=== PATIENT | female | born 1970 | race Hispanic/Latino ===

== ENCOUNTER 2018-03-20 11:06 | Emergency (ER) | payer BC ==
[2018-03-20] MEDS ORDERED: NA CHLORIDE 0.9% 1,000 ML ONE (11:29)
[2018-03-20 12:03] LABS: Absolute Lymphocytes (CBC) 2.1 K/uL (0.7-4.9); Absolute Monocytes 0.4 K/uL (0.1-1.3); Absolute Neutrophil 4.1 K/uL (1.8-8.0); Basophils % 0.7 % (0-1.3); Eosinophils % 1.6 % (0-4.4); Hematocrit 38.1 % (36.0-45.0); Lymphocytes % 30.9 % (15.3-44.8); MCH 30.1 pg (27.0-35.0); MCV 91.9 fL (80-100); Monocytes % 5.3 % (3.3-12.3); RBC Red Blood Cell Count 4.15 M/uL (3.86-4.86)
[2018-03-20 12:13] LABS: BUN Blood Urea Nitrogen 9 mg/dL (7-18); Bicarbonate 26 mmol/L (21-32); Glucose Level 92 mg/dL (74-106); Potassium 3.9 mmol/L (3.5-5.1); Sodium Level 141 mmol/L (136-145)
[2018-03-20 12:23] LABS: Urine Blood 3+ (NEG); Urine Glucose NEGATIVE (NEG); Urine Protein 1+ (NEG); Urine Specific Gravity >1.030 (1.005-1.030); Urine pH 5.5 (5.0-7.0)
--- NOTE | 2018-03-20 12:37 | RAD REPORT ---
EXAM DESCRIPTION: US - Transvaginal Study Probe - 03/20/2018 12:08 pm CLINICAL HISTORY: PAIN Pelvic pain. COMPARISON: TRANSVAGINAL STUDY PROBE dated 06/06/2009 FINDINGS: Subserosal fibroid is seen fundal region posteriorly measuring 19 x 18 x 15 mm. The uterus measures 7.1 x 4.8 x 4.4 cm The endometrial stripe measures 16 mm, normal. The left ovary measures 2.4 x 1.3 x 1.4 cm with normal Doppler blood flow. The right ovary was obscur ed by bowel gas. No adnexal masses. No significant pelvic ascites. IMPRESSION: Small subserosal uterine fibroid. Mildly thickened endometrial stripe measuring 16 mm.
--- NOTE | 2018-03-20 14:20 | EDPHYS ---
Physician Documentation [facility] Name: Tessa Vogel Age: 47 yrs Sex: Female : 1970 Arrival Date: 03/20/2018 Time: 11:10 Bed 23 Private MD: Alexandrea Martinez R ED Physician Brandon Adames HPI: 03/20 11:49 This 47 yrs old Female presents to ER via Ambulatory with complaints of john Vaginal Bleeding. 11:49 The patient presents with vaginal bleeding that is moderate, heavy. Onset: The john symptoms/episode began/occurred 1 month(s) ago. Modifying factors: The symptoms are alleviated by nothing, the symptoms are aggravated by nothing. Associated signs and symptoms: Pertinent positives: vaginal bleeding. Severity of symptoms: At their worst the symptoms were mild, moderate, in the emergency department the symptoms are unchanged. 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 - Social history:: Smoking status: Patient/guardian denies using tobacco. - Ebola Screening: : No symptoms or risks identified at this time. - Family history:: not pertinent. ROS: 11:49 Constitutional: Negative for fever, chills, and weight loss, Eyes: Negative for injury, john pain, redness, and discharge, ENT: Negative for injury, pain, and discharge, Neck: Negative for injury, pain, and swelling, Cardiovascular: Negative for chest pain, palpitations, and edema, Respiratory: Negative for shortness of breath, cough, wheezing, and pleuritic chest pain, Abdomen/GI: Negative for abdominal pain, nausea, vomiting, diarrhea, and constipation, Back: Negative for injury and pain, MS/Extremity: Negative for injury and deformity, Skin: Negative for injury, rash, and discoloration, Neuro: Negative for headache, weakness, numbness, tingling, and seizure, Psych: Negative for depression, anxiety, suicide ideation, homicidal ideation, and hallucinations, Allergy/Immunology: Negative for hives, rash, and allergies, Endocrine: Negative for neck swelling, polydipsia, polyuria, polyphagia, and marked weight changes, Hematologic/Lymphatic: Negative for swollen nodes, abnormal bleeding, and unusual bruising. 11:49 : Positive for pelvic pain, vaginal bleeding. Exam: 11:49 Constitutional: This is a well developed, well nourished patient who is awake, alert, john and in no acute distress. Head/Face: Normocephalic, atraumatic. Eyes: Pupils equal round and reactive to light, extra-ocular motions intact. Lids and lashes normal. Conjunctiva and sclera are non-icteric and not injected. Cornea within normal limits. Periorbital areas with no swelling, redness, or edema. ENT: Nares patent. No nasal discharge, no septal abnormalities noted. Tympanic membranes are normal and external auditory canals are clear. Oropharynx with no redness, swelling, or masses, exudates, or evidence of obstruction, uvula midline. Mucous membranes moist. Neck: Trachea midline, no thyromegaly or masses palpated, and no cervical lymphadenopathy. Supple, full range of motion without nuchal rigidity, or vertebral point tenderness. No Meningismus. Chest/axilla: Normal chest wall appearance and motion. Nontender with no deformity. No lesions are appreciated. Cardiovascular: Regular rate and rhythm with a normal S1 and S2. No gallops, murmurs, or rubs. Normal PMI, no JVD. No pulse deficits. Respiratory: Lungs have equal breath sounds bilaterally, clear to auscultation and percussion. No rales, rhonchi or wheezes noted. No increased work of breathing, no retractions or nasal flaring. Abdomen/GI: Soft, non-tender, with normal bowel sounds. No distension or tympany. No guarding or rebound. No evidence of tenderness throughout. Back: No spinal tenderness. No costovertebral tenderness. Full range of motion. Female : Normal external genitalia. Skin: Warm, dry with normal turgor. Normal color with no rashes, no lesions, and no evidence of cellulitis. MS/ Extremity: Pulses equal, no cyanosis. Neurovascular intact. Full, normal range of motion. Neuro: Awake and alert, GCS 15, oriented to person, place, time, and situation. Cranial nerves II-XII grossly intact. Motor strength 5/5 in all extremities. Sensory grossly intact. Cerebellar exam normal. Normal gait. Psych: Awake, alert, with orientation to person, place and time. Behavior, mood, and affect are within normal limits. Vital Signs: 11:18 BP 141 / 82; Pulse 82; Resp 16; Temp 98; Pulse Ox 100% on R/A; Pain 8/10; hb 12:00 BP 141 / 79; Pulse 61; Resp 16; Pulse Ox 100% on R/A; hb 13:00 BP 122 / 69; Pulse 55; Resp 15; Pulse Ox 100% on R/A; hb MDM: 11:17 Patient medically screened. [facility] 11:51 Data reviewed: vital signs, nurses notes, lab test result(s), radiologic studies, [facility] ultrasound. 03/20 11:20 Order name: Basic Metabolic Panel; Complete Time: 14:16 [facility] 03/20 11:20 Order name: CBC with Diff; Complete Time: 14:16 [facility] 03/20 11:20 Order name: Type And Screen; Complete Time: 14:16 [facility] 03/20 11:42 Order name: Urine Dipstick--Ancillary (enter results); Complete Time: 14:16 03/20 11:42 Order name: Urine --Ancillary (enter results); Complete Time: 14:16 03/20 11:20 Order name: Urine Test (obtain specimen); Complete Time: 11:36 [facility] 03/20 11:20 Order name: IV Saline Lock; Complete Time: 11:36 [facility] 03/20 11:20 Order name: Labs collected and sent; Complete Time: 11:36 [facility] 03/20 11:20 Order name: NPO; Complete Time: 11:36 [facility] 03/20 11:20 Order name: Urine Dipstick-Ancillary (obtain specimen); Complete Time: 11:36 [facility] 03/20 11:20 Order name: US Transvaginal Study (Probe); Complete Time: 14:16 [facility] Administered Medications: 11:37 Drug: NS 0.9% 1000 ml Route: IV; Rate: 1 bolus; Site: right femoral; hb Disposition: 03/20/18 14:19 Discharged to Home. Impression: Leiomyoma of uterus, unspecified - vaginal bleeding. - Condition is Stable. - Discharge Instructions: Dysmenorrhea, Uterine Bleeding, Dysfunctional, Dysmenorrhea, [id number]. - Prescriptions for Motrin IB 200 mg Oral Tablet - take 2 tablet by ORAL route every 6 hours As needed as needed with food; 30 tablet. - Medication Reconciliation Form, Thank You Letter, Antibiotic Education, Prescription Opioid Use, Work release form form. - Follow up: Alexandrea Martinez; When: 2 - 3 days; Reason: Recheck today's complaints, Continuance of care, Re-evaluation by your physician. Follow up: Natali Carter; When: 2 - 3 days; Reason: Recheck today's complaints, Continuance of care, Re-evaluation by your physician. - Problem is new. - Symptoms have improved. Signatures: Dispatcher [employer] [facility] Brandon Adames MD MD cha Baxter, Heather RN RN hb Corrections: (The following items were deleted from the chart) 12:00 11:21 ABO/RH TYPING+BB.LAB.BRZ ordered. [facility] 15:08 14:19 03/20/2018 14:19 Discharged to Home. Impression: Leiomyoma of uterus, unspecified hb - vaginal bleeding. Condition is Stable. Discharge Instructions: Dysmenorrhea, Uterine Bleeding, Dysfunctional, Dysmenorrhea, [id number]. Prescriptions for Motrin IB 200 mg Oral Tablet - take 2 tablet by ORAL route every 6 hours As needed as needed with food; 30 tablet. and Forms are Medication Reconciliation Form, Thank You Letter, Antibiotic Education, Prescription Opioid Use. Follow up: Alexandrea Martinez; When: 2 - 3 days; Reason: Recheck today's complaints, Continuance of care, Re-evaluation by your physician. Follow up: Natali Carter; When: 2 - 3 days; Reason: Recheck today's complaints, Continuance of care, Re-evaluation by your physician. Problem is new. Symptoms have improved. john
--- NOTE | 2018-03-20 14:20 | ER ---
Nurse's Notes [facility] Name: Tessa Vogel Age: 47 yrs Sex: Female : 1970 Arrival Date: 03/20/2018 Time: 11:10 Bed 23 Private MD: Alexandrea Martinez R Diagnosis: Leiomyoma of uterus, unspecified-vaginal bleeding Presentation: 03/20 11:16 Presenting complaint: Patient states: Heavy vaginal bleeding and abdominal cramping x 2 hb days. Recently seen for same s/s, told she has uterine fibroids. LMP 02/23. Transition of care: patient was not received from another setting of care. Onset of symptoms was March 19, 2018. Risk Assessment: Do you want to hurt yourself or someone else? Patient reports no desire to harm self or others. Initial Sepsis Screen: Does the patient meet any 2 criteria? No. Patient's initial sepsis screen is negative. Does the patient have a suspected source of infection? No. Patient's initial sepsis screen is negative. Care prior to arrival: None. 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 - Social history:: Smoking status: Patient/guardian denies using tobacco. - Ebola Screening: : No symptoms or risks identified at this time. - Family history:: not pertinent. Screenin:36 Abuse screen: Denies threats or abuse. Denies injuries from another. Nutritional hb screening: No deficits noted. Tuberculosis screening: No symptoms or risk factors identified. Fall Risk None identified. Assessment: 11:20 General: Appears in no apparent distress. Behavior is calm, cooperative. Pain: Pain hb currently is 8 out of 10 on a pain scale. Neuro: Level of Consciousness is awake, alert, obeys commands, Oriented to person, place, time, situation. Cardiovascular: Capillary refill < 3 seconds Patient's skin is warm and dry. Respiratory: Airway is patent Trachea midline Respiratory effort is even, unlabored, Respiratory pattern is regular, symmetrical, Breath sounds are clear bilaterally. GI: No signs and/or symptoms were reported involving the gastrointestinal system. : Urine is clear, blood tinged, Reports pain lower abdomen vaginal bleeding that is bright red, heavy flow. EENT: No signs and/or symptoms were reported regarding the EENT system. Derm: No signs and/or symptoms reported regarding the dermatologic system. Skin is intact, is healthy with good turgor, Skin is pink, warm \T\ dry. Musculoskeletal: No signs and/or symptoms reported regarding the musculoskeletal system. Vital Signs: 11:18 BP 141 / 82; Pulse 82; Resp 16; Temp 98; Pulse Ox 100% on R/A; Pain 8/10; hb 12:00 BP 141 / 79; Pulse 61; Resp 16; Pulse Ox 100% on R/A; hb 13:00 BP 122 / 69; Pulse 55; Resp 15; Pulse Ox 100% on R/A; hb ED Course: 11:10 Patient arrived in ED. sb2 11:10 Alexandrea Martinez MD is Private Physician. sb2 11:15 Avelina Keating, AUSTEN is Primary Nurse. hb 11:17 Brandon Adames MD is Attending Physician. john 11:18 Triage completed. hb 11:18 Arm band placed on right wrist. hb 11:22 Patient has correct armband on for positive identification. Placed in gown. Bed in low hb position. Call light in reach. Side rails up X 1. 11:58 US Transvaginal Study (Probe) In Process Unspecified. EDMS 12:26 Ultrasound completed. Patient tolerated well. Patient moved back from ultrasound. aa4 13:02 Initial lab(s) drawn, by wv, sent to lab. Inserted saline lock: 20 gauge in right ag antecubital area, using aseptic technique. Blood collected. 13:02 Type And Screen Sent. ag 14:17 Alexandrea Martinez MD is Referral Physician. [facility] 14:17 Natali Carter MD is Referral Physician. john Administered Medications: 11:37 Drug: NS 0.9% 1000 ml Route: IV; Rate: 1 bolus; Site: right femoral; hb Outcome: 14:19 Discharge ordered by MD. lopez 15:08 Patient left the ED. hb Signatures: Dispatcher [employer] EDBrandon Cabrales MD MD cha Frazier, Amanda aa4 Anne Diaz Heather, RN RN Mya Bey sb2
== END 2018-03-20 15:08 | disposition home or self-care (01) ==
LOC: ER 11:06
DX: D25.9 Leiomyoma of uterus, unspecified (principal); N93.9 Abnormal uterine and vaginal bleeding, unspecified; Z88.5 Allergy status to narcotic agent; Z88.0 Allergy status to penicillin; Z88.8 Allergy status to other drugs, medicaments and biological substances
CPT/HCPCS: 36415; 76830; 80048; 81003; 81025; 85025; 86850; 86900; 86901; 99284; J7030

== ENCOUNTER 2019-08-04 15:21 | Emergency (ER) | payer BC ==
--- NOTE | 2019-08-04 16:14 | RAD REPORT ---
EXAM DESCRIPTION: CT - Head Brain Wo Cont - 08/04/2019 4:03 pm CLINICAL HISTORY: Hypertension, left arm weakness and numbness COMPARISON: None. TECHNIQUE: Axial 5 mm thick images of the head were obtained without IV contrast. All CT scans are performed using dose optimization technique as appropriate and may include automated exposure control or mA/KV adjustment according to patient size. FINDINGS: No intracranial hemorrhage, mass, edema or shift of mid-line structures. No acute infarcti on changes seen. No abnormal extra-axial fluid collections. Ventricles are normal. Mastoid air cells and visualized portions of the paranasal sinuses are clear. No acute bony findings. IMPRESSION: Negative non-contrast CT head examination.
[2019-08-04 16:30] LABS: Absolute Lymphocytes (CBC) 2.4 K/uL (0.7-4.9); Basophils % 0.8 % (0-1.3); Hematocrit 36.9 % (36.0-45.0); Lymphocytes % 35.1 % (15.3-44.8); MPV 10.3 fL (7.6-11.3); RBC Red Blood Cell Count 4.07 M/uL (3.86-4.86)
[2019-08-04 16:31] LABS: Protime INR 0.97
[2019-08-04 16:48] LABS: ALT/SGPT 30 U/L (12-78); AST/SGOT 20 U/L (15-37); Albumin 4.1 g/dL (3.4-5.0); Alkaline Phosphatase 85 U/L (45-117); BUN Blood Urea Nitrogen 9 mg/dL (7-18); Bicarbonate 25 mmol/L (21-32); Bilirubin Direct < 0.1 mg/dL (0-0.2); Bilirubin Total 0.3 mg/dL (0.2-1.0); Glucose Level 90 mg/dL (74-106); Magnesium 2.4 mg/dL (1.8-2.4); NT PRO-BNP 33 pg/mL (<125); Potassium 3.5 mmol/L (3.5-5.1); Protein, Total 7.7 g/dL (6.4-8.2); Sodium Level 142 mmol/L (136-145); Troponin (Emerg Dept Use Only) < 0.02 ng/mL (0.0-0.045)
--- NOTE | 2019-08-04 17:15 | RAD REPORT ---
EXAM DESCRIPTION: RAD - Chest Single View - 08/04/2019 4:27 pm CLINICAL HISTORY: Chest pain COMPARISON: March 2010 TECHNIQUE: AP portable chest image was obtained 1607 hours . FINDINGS: Lungs are clear. Heart and vasculature are normal. No measurable pleural effusion and no p neumothorax. No acute bony abnormality seen. No acute aortic findings suspected. No suspicious interv al change. IMPRESSION: No acute cardiopulmonary process.
--- NOTE | 2019-08-04 17:47 | ER ---
Nurse's Notes [facility] Name: Tessa Vogel Age: 49 yrs Sex: Female : 1970 Arrival Date: 08/04/2019 Time: 15:25 Bed 6 Private MD: Alexandrea Martinez R Diagnosis: Paresthesia of skin Presentation: 08/04 15:28 Presenting complaint: Patient states: My BP has been running in the 150s over 80s for la1 the last two days and having tingling in my left arm but today the tingling is worse, I am having a LEWIS, and pain in my shoulders as well. Transition of care: patient was not received from another setting of care. Onset of symptoms was August 04, 2019. Risk Assessment: Do you want to hurt yourself or someone else? Patient reports no desire to harm self or others. Initial Sepsis Screen: Does the patient meet any 2 criteria? No. Patient's initial sepsis screen is negative. Does the patient have a suspected source of infection? No. Patient's initial sepsis screen is negative. Care prior to arrival: None. 15:28 Method Of Arrival: Ambulatory la1 15:28 Acuity: NATALIO 3 la1 Historical: - Allergies: 15:29 Codeine; la1 15:29 Dilantin; la1 15:29 PENICILLINS; la1 - PMHx: 15:29 uterine fibroids; la1 - Immunization history:: Adult Immunizations up to date. - Social history:: Smoking status: Patient/guardian denies using tobacco. - Ebola Screening: : No symptoms or risks identified at this time. Screenin:36 Abuse screen: Denies threats or abuse. Denies injuries from another. Nutritional ph screening: No deficits noted. Tuberculosis screening: No symptoms or risk factors identified. Fall Risk None identified. Assessment: 16:02 General: Appears in no apparent distress. Behavior is calm, cooperative. Pain: Pain hb currently is 3 out of 10 on a pain scale. Neuro: Level of Consciousness is awake, alert, obeys commands, Oriented to person, place, time, situation. Cardiovascular: Capillary refill < 3 seconds. Respiratory: Airway is patent Respiratory effort is even, unlabored, Respiratory pattern is regular, symmetrical, Breath sounds are clear bilaterally. GI: No signs and/or symptoms were reported involving the gastrointestinal system. : No signs and/or symptoms were reported regarding the genitourinary system. EENT: No signs and/or symptoms were reported regarding the EENT system. Derm: Skin is pink, warm \T\ dry. Musculoskeletal: Reports left shoulder and arm pain, left arm parethesias. 17:00 Reassessment: Patient appears in no apparent distress at this time. Patient and/or hb family updated on plan of care and expected duration. Pain level reassessed. Patient is alert, oriented x 3, equal unlabored respirations, skin warm/dry/pink. 18:00 Reassessment: Patient appears in no apparent distress at this time. Patient and/or hb family updated on plan of care and expected duration. Pain level reassessed. Patient is alert, oriented x 3, equal unlabored respirations, skin warm/dry/pink. Vital Signs: 15:29 BP 149 / 89; Pulse 71; Resp 16; Temp 97.2; Pulse Ox 100% on R/A; Weight 71.67 kg; la1 Height 5 ft. (152.40 cm); 16:30 BP 125 / 72; Pulse 62; Resp 15; Pulse Ox 100% on R/A; hb 17:21 BP 115 / 65; Pulse 71; Resp 16; Pulse Ox 100% on R/A; hb 15:29 Body Mass Index 30.86 (71.67 kg, 152.40 cm) la1 NIH Stroke Scale Scores: 15:55 NIHSS Score: 0 jr8 ED Course: 15:25 Patient arrived in ED. mr 15:26 Alexandrea Martinez MD is Private Physician. mr 15:29 Triage completed. la1 15:29 Arm band placed on left wrist. la1 15:30 Fantasma Granados PA is PHCP. jr8 15:30 Brandon Adames MD is Attending Physician. jr8 16:17 Lauryn Bryant RN is Primary Nurse. ph 16:20 Inserted saline lock: 20 gauge in right antecubital area, using aseptic technique. hb Blood collected. 16:32 Patient has correct armband on for positive identification. Bed in low position. Call hb light in reach. Side rails up X 1. 17:46 Cesar Newell MD is Referral Physician. jr8 18:01 No provider procedures requiring assistance completed. IV discontinued, intact, hb bleeding controlled, No redness/swelling at site. Pressure dressing applied. Administered Medications: No medications were administered Outcome: 17:46 Discharge ordered by MD. baldwin 18:01 Discharged to home ambulatory. hb 18:01 Condition: stable 18:01 Discharge instructions given to patient, Instructed on discharge instructions, follow up and referral plans. medication usage, Demonstrated understanding of instructions, follow-up care, medications. 18:12 Patient left the ED. hb NIH Stroke Scale - NIH Stroke Score Date: 08/04/2019 Time: 15:55 Total Score = 0 1a. Level of Consciousness (LOC) - 0(Alert) 1b. Level of Consciousness (LOC) (Year \T\ Age) - 0(Both) 1c. LOC Commands (Open \T\ Closes Eyes/Physics Department Chair) - 0(Both) 2. Best Gaze (Lateral Gaze Paresis) - 0(Normal) 3. Visual Field Loss - 0(No visual loss) 4. Facial Palsy - 0(Normal) 5a. Left Arm: Motor (10-second hold) - 0(No drift) 5b. Right Arm: Motor (10-second hold) - 0(No drift) 6a. Left Leg: Motor (5-second hold - always test supine) - 0(No drift) 6b. Right Leg: Motor (5-second hold - always test supine) - 0(No drift) 7. Limb Ataxia (finger/nose \T\ heel/sinha - test with eyes open) - 0(Absent) 8. Sensory Loss (pinprick arms/legs/face) - 0(Normal) 9. Best Language: Aphasia (description/naming/reading) - 0(No aphasia) 10. Dysarthria (speech clarity - read or repeat words) - 0(Normal) 11. Extinction and Inattention (visual/tactile/auditory/spatial/personal) - 0(No abnormality) Initials: nicolasa Signatures: Rinku Ros Fantasma Jacobs PA PA jr8 Attema, Lee, RN RN laLauryn Wills, AUSTEN RN ph Avelina Keating RN RN hb Corrections: (The following items were deleted from the chart) 17:21 17:00 BP 115 / 65; Pulse 71bpm; Resp 16bpm; Pulse Ox 100% RA; hb hb
--- NOTE | 2019-08-04 17:47 | EDPHYS ---
Physician Documentation [facility] Name: Tessa Vogel Age: 49 yrs Sex: Female : 1970 Arrival Date: 08/04/2019 Time: 15:25 Bed 6 Private MD: Alexandrea Martinez R ED Physician Brandon Adames HPI: 08/04 15:53 This 49 yrs old Female presents to ER via Ambulatory with complaints of jr8 Shoulder Pain, Numbness Of Arm, Headache, Vision Problem. 15:53 The patient presents to the emergency department with paresthesias of the left lower jr8 extremity, that is mild, left upper extremity, that is mild. Onset: The symptoms/episode began/occurred acutely, 2 day(s) ago. Context: occurred at home, occurred while the patient was at rest. Associated signs and symptoms: Pertinent positives: headache, blurred vision. Severity of symptoms: At their worst the symptoms were moderate in the emergency department the symptoms are unchanged. Patient's baseline: Neuro: alert and fully oriented, Motor: no deficits, Ambulation: walks without assistance, Speech: normal. Current symptoms: paresthesias of left arm and leg. The patient has not experienced similar symptoms in the past. The patient has not recently seen a physician. 15:55 Chest pain yesterday as well . jr8 Historical: - Allergies: 15:29 Codeine; la1 15:29 Dilantin; la1 15:29 PENICILLINS; la1 - PMHx: 15:29 uterine fibroids; la1 - Immunization history:: Adult Immunizations up to date. - Social history:: Smoking status: Patient/guardian denies using tobacco. - Ebola Screening: : No symptoms or risks identified at this time. ROS: 15:53 Eyes: Negative for injury, pain, redness, and discharge, ENT: Negative for injury, jr8 pain, and discharge, Neck: Negative for injury, pain, and swelling, Respiratory: Negative for shortness of breath, cough, wheezing, and pleuritic chest pain, Abdomen/GI: Negative for abdominal pain, nausea, vomiting, diarrhea, and constipation, Back: Negative for injury and pain, MS/Extremity: Negative for injury and deformity, Skin: Negative for injury, rash, and discoloration. 15:53 Cardiovascular: Positive for chest pain. 15:53 Neuro: Positive for tingling, visual changes. Exam: 15:55 Eyes: Pupils equal round and reactive to light, extra-ocular motions intact. Lids and jr8 lashes normal. Conjunctiva and sclera are non-icteric and not injected. Cornea within normal limits. Periorbital areas with no swelling, redness, or edema. ENT: Nares patent. No nasal discharge, no septal abnormalities noted. Tympanic membranes are normal and external auditory canals are clear. Oropharynx with no redness, swelling, or masses, exudates, or evidence of obstruction, uvula midline. Mucous membranes moist. Neck: Trachea midline, no thyromegaly or masses palpated, and no cervical lymphadenopathy. Supple, full range of motion without nuchal rigidity, or vertebral point tenderness. No Meningismus. Cardiovascular: Regular rate and rhythm with a normal S1 and S2. No gallops, murmurs, or rubs. Normal PMI, no JVD. No pulse deficits. Respiratory: Lungs have equal breath sounds bilaterally, clear to auscultation and percussion. No rales, rhonchi or wheezes noted. No increased work of breathing, no retractions or nasal flaring. Abdomen/GI: Soft, non-tender, with normal bowel sounds. No distension or tympany. No guarding or rebound. No evidence of tenderness throughout. Back: No spinal tenderness. No costovertebral tenderness. Full range of motion. Skin: Warm, dry with normal turgor. Normal color with no rashes, no lesions, and no evidence of cellulitis. MS/ Extremity: Pulses equal, no cyanosis. Neurovascular intact. Full, normal range of motion. 15:55 Neuro: Orientation: to person, place, time \T\ situation. Mentation: is normal, Memory: is normal, immediate memory is intact, recent memory is intact, remote memory is intact, Cranial nerves: CN I not tested, CN II- XII are normal as tested, visual mera are intact. extraocular movements are intact, Facial palsy and sensory deficits are absent. Nystagmus is absent. Speech is clear and appropriate. Tongue strength is normal, Cerebellar function: normal finger to nose testing, heel to sinha testing is normal, Motor: moves all fours, strength is 5/5 in all extremities, Sensation: tingling, that is mild, of the left arm, Gait: not tested. seizure activity, is not displayed by the patient, Abnormal movements: there are no abnormal movements. Vital Signs: 15:29 BP 149 / 89; Pulse 71; Resp 16; Temp 97.2; Pulse Ox 100% on R/A; Weight 71.67 kg; la1 Height 5 ft. (152.40 cm); 16:30 BP 125 / 72; Pulse 62; Resp 15; Pulse Ox 100% on R/A; hb 17:21 BP 115 / 65; Pulse 71; Resp 16; Pulse Ox 100% on R/A; hb 15:29 Body Mass Index 30.86 (71.67 kg, 152.40 cm) la1 NIH Stroke Scale Scores: 15:55 NIHSS Score: 0 jr8 MDM: 15:30 Patient medically screened. 8 17:45 Data reviewed: vital signs, nurses notes, lab test result(s), EKG, radiologic studies, rust CT scan, plain films. Data interpreted: Pulse oximetry: on room air is 100 %. Interpretation: normal. Counseling: I had a detailed discussion with the patient and/or guardian regarding: the historical points, exam findings, and any diagnostic results supporting the discharge/admit diagnosis, lab results, radiology results, the need for outpatient follow up, a neurologist, to return to the emergency department if symptoms worsen or persist or if there are any questions or concerns that arise at home. 08/04 15:44 Order name: Basic Metabolic Panel rust 08/04 15:44 Order name: CBC with Diff rust 08/04 15:44 Order name: LFT's rust 08/04 15:44 Order name: Magnesium rust 08/04 15:44 Order name: NT PRO-BNP rust 08/04 15:44 Order name: PT-INR rust 08/04 15:44 Order name: Troponin (emerg Dept Use Only) rust 08/04 16:30 Order name: CBC with Automated Diff; Complete Time: 16:43 EDMS 08/04 16:31 Order name: Protime (+INR); Complete Time: 16:43 EDMS 08/04 16:49 Order name: Basic Metabolic Panel; Complete Time: 16:52 EDMS 08/04 16:49 Order name: Liver (Hepatic) Function; Complete Time: 16:52 EDMS 08/04 16:49 Order name: Troponin (Emerg Dept Use Only); Complete Time: 16:52 EDMS 08/04 16:49 Order name: NT PRO-BNP; Complete Time: 16:52 EDMS 08/04 16:49 Order name: Magnesium; Complete Time: 16:52 EDMS 08/04 15:44 Order name: XRAY Chest (1 view) rust 08/04 15:44 Order name: EKG; Complete Time: 15:45 rust 08/04 15:44 Order name: Cardiac monitoring; Complete Time: 16:32 rust 08/04 15:44 Order name: EKG - Nurse/Tech; Complete Time: 16:32 rust 08/04 15:44 Order name: IV Saline Lock; Complete Time: 16:32 rust 08/04 15:44 Order name: Labs collected and sent; Complete Time: 16:32 rust 08/04 15:44 Order name: O2 Per Protocol; Complete Time: 16:32 rust 08/04 15:44 Order name: O2 Sat Monitoring; Complete Time: 16:32 rust 08/04 15:44 Order name: CT Head Brain wo Cont 8 08/04 16:41 Order name: CT; Complete Time: 16:43 EDMS 08/04 17:43 Order name: RAD; Complete Time: 17:45 EDMS Administered Medications: No medications were administered Disposition: 08/05 13:33 Co-signature as Attending Physician, Brandon Adames MD I agree with the assessment and john plan of care. Disposition: 08/04/19 17:46 Discharged to Home. Impression: Paresthesia of skin. - Condition is Stable. - Discharge Instructions: Paresthesia. - Medication Reconciliation Form, Thank You Letter, Antibiotic Education, Prescription Opioid Use, Work release form form. - Follow up: Cesar Newell MD; When: 2 - 3 days; Reason: Recheck today's complaints, Continuance of care, Re-evaluation by your physician. - Problem is new. - Symptoms have improved. NIH Stroke Scale - NIH Stroke Score Date: 08/04/2019 Time: 15:55 Total Score = 0 1a. Level of Consciousness (LOC) - 0(Alert) 1b. Level of Consciousness (LOC) (Year \T\ Age) - 0(Both) 1c. LOC Commands (Open \T\ Closes Eyes/Shelf Filler) - 0(Both) 2. Best Gaze (Lateral Gaze Paresis) - 0(Normal) 3. Visual Field Loss - 0(No visual loss) 4. Facial Palsy - 0(Normal) 5a. Left Arm: Motor (10-second hold) - 0(No drift) 5b. Right Arm: Motor (10-second hold) - 0(No drift) 6a. Left Leg: Motor (5-second hold - always test supine) - 0(No drift) 6b. Right Leg: Motor (5-second hold - always test supine) - 0(No drift) 7. Limb Ataxia (finger/nose \T\ heel/sinha - test with eyes open) - 0(Absent) 8. Sensory Loss (pinprick arms/legs/face) - 0(Normal) 9. Best Language: Aphasia (description/naming/reading) - 0(No aphasia) 10. Dysarthria (speech clarity - read or repeat words) - 0(Normal) 11. Extinction and Inattention (visual/tactile/auditory/spatial/personal) - 0(No abnormality) Initials: nicolasa Signatures: Dispatcher [employer] EDMS Brandon Adames MD MD cha Roszak, Josh, PA PA jr8 Joe Tillman RN RN la1 Avelina Keating RN RN hb Corrections: (The following items were deleted from the chart) 08/04 18:12 17:46 08/04/2019 17:46 Discharged to Home. Impression: Paresthesia of skin. hb Condition is Stable. Forms are Medication Reconciliation Form, Thank You Letter, Antibiotic Education, Prescription Opioid Use. Follow up: Cesar Newell; When: 2 - 3 days; Reason: Recheck today's complaints, Continuance of care, Re-evaluation by your physician. Problem is new. Symptoms have improved. jr8
[2019-08-04 19:58] VITALS: TEMP 97.2; O2SAT 100
[2019-08-04 20:02] VITALS: BP 115/65
--- NOTE | 2019-08-05 12:46 | EKG ---
Test Date: 2019-08-04 Test Time: 16:28:10 Car Carder: PH MEASUREMENT RESULTS: Intervals: Rate: 63 WY: 192 QRSD: 76 QT: 434 QTc: 444 [place]: P: 61 WY: 192 QRS: 30 T: -1 INTERPRETIVE STATEMENTS: Normal sinus rhythm Normal ECG No previous ECG available for comparison Electronically Signed On 08-05-19 12:44:34 FISHER EEL SPEAR by Manny Gonzalez
--- OUTSIDE RECORDS SUMMARY | 2019-08-06 06:19 | XMS REPORT | Summary of Care ---
:1970 Author Organization [facility] Address [address] [place] [id number] Care Team Providers Name Role Phone Pcp, Patient Does Not Have A Primary Care Provider Reason for Visit Reason Comments Back Pain right side, x2 days Encounter Details Date Type Department Care Team Description 06/05/2019 Office Visit [facility] Family Kia Templeton FNP Symptoms of urinary tract infection (Primary Dx); Medicine - [address] H/O motion sickness [address] [place] [address] Drive [place], [place] [id number] [place], [place] [phone] Allergies Active Allergy Reactions Severity Noted Date Comments Codeine Nausea and/or Vomiting 04/27/2017 Iodine And Iodide Containing Anaphylaxis 02/25/2018 Products Phenytoin Rash 04/27/2017 Penicillin Rash 04/27/2017 documented as of this encounter (statuses as of 06/06/2019) Medications Medication Sig Dispensed Refills Start Date End Date Status cyanocobalamin 1,000 0 03/29/2017 Active mcg/mL injection Take 1 capsule 30 capsule 9 04/27/2017 Active no.44-iron,car-FA-dha by mouth daily. (PRENATE MINI) 29 mg iron-1 mg -350 mg Cap meclizine Take 1 tablet by 30 tablet 0 06/05/2019 06/19/2019 Active (MEDI-MECLIZINE) 25 mouth 3 (three) mg tabletIndications: times daily as H/O motion sickness needed for Dizziness (motion sickness, going sailing) for up to 14 days. ciprofloxacin HCl Take 1 tablet by 6 tablet 0 06/05/2019 06/08/2019 Active (CIPRO) 250 mg mouth every 12 tabletIndications: (twelve) hours Symptoms of urinary for 3 days. tract infection documented as of this encounter (statuses as of 06/06/2019) Active Problems No known active problemsdocumented as of this encounter (statuses as of 2018) Social History Tobacco Use Types Packs/Day Years Used Date Never Smoker Smokeless Tobacco: Never Used Alcohol Use Drinks/Week oz/Week Comments Yes Rare Sex Assigned at Date Recorded Not on file Job Start Date Occupation Industry Not on file Not on file Not on file Travel History Travel Start Travel End No recent travel history available. documented as of this encounter Last Filed Vital Signs Vital Sign Reading Time Taken Comments Blood Pressure 134/86 06/05/2019 4:03 PM CDT Pulse 60 06/05/2019 4:03 PM CDT Temperature 36.4 C (97.6 F) 06/05/2019 4:03 PM CDT Respiratory Rate - - Oxygen Saturation 98% 06/05/2019 4:03 PM CDT Inhaled Oxygen Concentration - - Weight 68.5 kg (151 lb) 06/05/2019 4:03 PM CDT Height 152.4 cm (5') 06/05/2019 4:03 PM CDT Body Mass Index 29.49 06/05/2019 4:03 PM CDT documented in this encounter Progress Notes Kia Templeton FNP - 06/05/2019 4:20 PM CDT Cc: Chief Complaint Patient presents with Back Pain right side, x2 days Tessa Vogel is a 48 year old female. Patient here with right flank pain, blood in urine, and frequency. She also asks for medication for motion sickness as she is going sailing and gets motion sickness. URINARY TRACT INFECTION Patient presents to clinic today with complaints of flank pain (right) and frequency. Patient deniesdysuria or urgency. This is a new problem. The current episode started today. The problem has been gradually worsening since onset. Her pain is at a severity of 9/10. The pain is severe. Patient describes pain as stabbing. There has been no fever. She describes her urine color as tea colored (cloudy urine, malodorous). Associated symptoms include chills. Pertinent negatives include no fever or nausea. She has tried increased fluids for the symptoms.The treatment provided no relief. Her sexual activity is non- contributory to the current illness. Allergies Tessa is allergic to codeine; contrast [iodine and iodide containing products]; dilantin [phenytoin]; and penicillin. Medications Outpatient Medications Prior to Visit Medication Sig Dispense Refill cyanocobalamin 1,000 mcg/mL injection no.44-iron,car-FA-dha (PRENATE MINI) 29 mg iron-1 mg -350 mg Cap Take 1 capsule by mouth daily. 30 capsule 9 No facility-administered medications prior to visit. Histories Past Medical History: Diagnosis Date Anemia Breast disorder fibroid Genital herpes + blood testing but pt denies breakout Hypertension During Pap smear abnormality of cervix Transfusion history hemorrhaged with ectopic - unsure if transfused Past Surgical History: Procedure Laterality Date BREAST SURGERY fibroid removed BUNIONECTOMY 2013 INCISION AND DRAINAGE OF ABSCESS 1984 "cyst" near tailbone KNEE ARTHROSCOPY 2013 Social History Socioeconomic History Marital status: Single Spouse name: Not on file Number of children: Not on file Years of education: Not on file Highest education level: Not on file Occupational History Not on file Social Needs Financial resource strain: Not on file Food insecurity: Worry: Not on file Inability: Not on file Transportation needs: Medical: Not on file Non-medical: Not on file Tobacco Use Smoking status: Never Smoker Smokeless tobacco: Never Used Substance and Sexual Activity Alcohol use: Yes Comment: Rare Drug use: No Sexual activity: Yes Partners: Male control/protection: Rhythm Lifestyle Physical activity: Days per week: Not on file Minutes per session: Not on file Stress: Not on file Relationships Social connections: Talks on phone: Not on file Gets together: Not on file Attends druze service: Not on file Active member of club or organization: Not on file Attends meetings of clubs or organizations: Not on file Relationship status: Not on file Intimate partner violence: Fear of current or ex partner: Not on file Emotionally abused: Not on file Physically abused: Not on file Forced sexual activity: Not on file Other Topics Concern Not on file Social History Narrative Orthodox preference: Yazidi No exposure to cats Denies domestic violence or abuse Family History Problem Relation Age of Onset Arthritis Mother Arthritis Father Diabetes Father High cholesterol Father Hypertension Father Cancer Brother Skin and esophageal Breast Cancer Maternal Aunt Colon Cancer Paternal Uncle Heart Paternal Uncle Neurological Paternal Uncle CVA Breast Cancer Maternal Grandmother Diabetes Maternal Grandmother Heart Maternal Grandmother Neurological Maternal Grandmother CVA Osteoporosis Maternal Grandmother Heart Paternal Grandmother Mental retardation Other Down Syndrome Diabetes Other Asthma NoFHx defects NoFHx Ovarian Cancer NoFHx Uterine Cancer NoFHx Depression NoFHx Psychiatry NoFHx Genetic NoFHx Review of Systems Constitutional: Positive for chills. Negative for fever. Respiratory: Negative. Negative for apnea, cough, choking, chest tightness, shortness of breath andwheezing. Cardiovascular: Negative. Negative for chest pain, palpitations and leg swelling. Gastrointestinal: Negative. Negative for nausea. Skin: Negative. Neurological: Negative. Endocrine: Endocrine negative Vital Signs BP 134/86 | Pulse 60 | Temp 36.4 C (97.6 F) (Tympanic) | Ht 5' (1.524 m) | Wt 151 lb (68.5 kg) | SpO2 98% | BMI 29.49 kg/m Physical Exam Constitutional: She is oriented to person, place, and time. She appears well- developed and well-nourished. HENT: Head: Normocephalic. Right Ear: External ear normal. Left Ear: External ear normal. Nose: Nose normal. Neck: Normal range of motion. Neck supple. Cardiovascular: Normal rate, regular rhythm, normal heart sounds and intact distal pulses. Exam reveals no gallop and no friction rub. No murmur heard. Pulmonary/Chest: Effort normal and breath sounds normal. No respiratory distress. She has no wheezes. She has no rales. She exhibits no tenderness. Abdominal: Soft. Bowel sounds are normal. She exhibits no distension. There is no tenderness. There is CVA tenderness (right). Neurological: She is alert and oriented to person, place, and time. Skin: Skin is warm and dry. Capillary refill takes less than 2 seconds. No rash noted. No erythema. No pallor. Nursing note and vitals reviewed. Assessment/Plan 1. Urinary symptoms: UA done in clinic shows some blood, thus will give cipro based on that preliminary findings and symptoms. Hydration and proper hygiene encouraged. Further interventions to follow depending on urine culture and other lab results. If symptoms worsen, get worse with high fever, nausea, vomiting, intractable pain on the flank , please go to the ER. 2. H/O motion sickness: Meclizine given due to pending exposure to the trigger. Plan of care, desired health behaviors, goals, and medication discussed with patient. Education resources provided and reviewed with AVS. Patient/guardian/family verbalized understanding & agrees to plan of care. This visit did not involve counseling and coordination that comprised more than 50% of the visit time. If applicable, the [place] [facility] database was accessed to review any controlled substance prescription claims data. The [employer] prescription claims data in [place] was reviewed to assess patient compliance with the medication treatment plan. documented in this encounter Plan of Treatment Name Type Priority Associated Diagnoses Order Schedule URINE CULTURE LAB Routine Symptoms of urinary Ordered: 06/05/2019 tract infection CBC WITH DIFF LAB Routine Symptoms of urinary Ordered: 06/05/2019 tract infection COMP. METABOLIC PANEL LAB Routine Symptoms of urinary Ordered: 06/05/2019 (67998) tract infection CBC WITH DIFFERENTIAL LAB Routine Symptoms of urinary Ordered: 06/05/2019 tract infection Health Maintenance Due Date Last Done Comments DTaP,Tdap,and Td Vaccines (1 - 1990 Tdap) PAP SMEAR 1992 MAMMOGRAM 2011 INFLUENZA VACCINE (#1) 2019 PNEUMOCOCCAL 0-64 YEARS COMBINED Aged Out No longer eligible based on SERIES patient's age to complete this topic documented as of this encounter Procedures Procedure Name Priority Date/Time Associated Diagnosis Comments POCT URINALYSIS Routine 06/05/2019 Symptoms of urinary tract Results for this infection procedure are in the results section. documented in this encounter Results POCT URINALYSIS W SPECIFIC GRAVITY (06/05/2019) POCT U SP GRAV 1.020 1.005 - 1.025 mg/dl POCT PH U 5 5 - 8 mg/dl POCT U LEUK EST neg Negative - Negative POCT U NIT neg Negative - Negative POCT U PROT neg Negative - Negative POCT U GLU neg Negative - Negative POCT U KETONE neg Negative - Negative POCT U UROBILI neg 0.2 - 1 mg/dl POCT U BILI neg Negative - Negative POCT U BLD 250 Negative - Negative POCT U COLOR pale yellow POCT U APPEAR clear Specimen Urine - URINE, CLEAN CATCH documented in this encounter Visit Diagnoses Diagnosis Symptoms of urinary tract infection - Primary H/O motion sickness Personal history of other specified diseases documented in this encounter Insurance Payer Benefit Plan / Subscriber ID Effective Dates Phone Address Type Group [facility] [id number] 2017-Present PPO/POS [employer] 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
--- OUTSIDE RECORDS SUMMARY | 2019-08-06 06:19 | XMS REPORT | Summary of Care ---
:1970 Author Organization [facility] Address [address] [place] [id number] Care Team Providers Name Role Phone Pcp, Patient Does Not Have A Primary Care Provider Reason for Visit Reason Comments Back Pain right side, x2 days Encounter Details Date Type Department Care Team Description 06/05/2019 Office Visit [facility] Family Kia Templeton FNP Symptoms of urinary tract infection (Primary Dx); Medicine - [address] H/O motion sickness [address] [place] [address] Drive [place], [place] [id number] [place], [place] [phone] Allergies Active Allergy Reactions Severity Noted Date Comments Codeine Nausea and/or Vomiting 04/27/2017 Iodine And Iodide Containing Anaphylaxis 02/25/2018 Products Phenytoin Rash 04/27/2017 Penicillin Rash 04/27/2017 documented as of this encounter (statuses as of 06/05/2019) Medications Medication Sig Dispensed Refills Start Date [...] as of this encounter (statuses as of 06/05/2019) Active Problems No known active problemsdocumented as [...] file Gets together: Not on file Attends confucianist service: Not on file Active member of [...] Concern Not on file Social History Narrative Moravian preference: Samaritan No exposure to cats Denies domestic violence [...] of the visit time. If applicable, the [place] [employer] database was accessed to review any controlled substance prescription claims data. The [employer] prescription claims data in [place] was reviewed to assess patient compliance with the medication treatment plan. documented in this encounter Plan of Treatment Name Type Priority Associated Diagnoses Order Schedule URINE CULTURE LAB Routine Symptoms of urinary Ordered: 06/05/2019 tract infection CBC WITH DIFF LAB Routine Symptoms of urinary Ordered: 06/05/2019 tract infection COMP. METABOLIC PANEL LAB Routine Symptoms of urinary Ordered: 06/05/2019 (26525) tract infection CBC WITH DIFFERENTIAL LAB Routine [...] ID Effective Dates Phone Address Type Group [facility] [id number] 2017-Present PPO/POS [employer] EMPLOYEE EMPLOYEE PLAN Jose Alberto ([place] [place] [address] documented as of this encounter
--- OUTSIDE RECORDS SUMMARY | 2019-08-06 06:19 | XMS REPORT | Summary of Care ---
:1970 Author Organization [facility] Address [address] [place] [address] Care Team Providers Name Role Phone Pcp, Patient Does Not Have A Primary Care Provider Reason for Referral Radiology Services (Routine) Status Reason Specialty Diagnoses / Referred By Referred To Procedures Contact Contact Closed Diagnostic Diagnoses Rib pain on right side Jareth, Kia, Radiology Procedures XR RIBS 3 VW RIGHT EMT [address] [address] Reason for Visit Reason Comments Follow-up Flank Pain right side radiates to RUQ rating 9 on scale 1/10 Encounter Details Date Type Department Care Team Description 06/08/2019 Office Visit [facility] Family Kia Templeton, EMT Rib pain on right side (Primary Dx); Medicine - [place] [address] Generalized abdominal pain; [address] [place] [address] [place], [place] [phone] [address] Allergies Active Allergy Reactions Severity Noted Date Comments Codeine Nausea and/or Vomiting 04/27/2017 Iodine And Iodide Containing Anaphylaxis 02/25/2018 Products Phenytoin Rash 04/27/2017 Penicillin Rash 04/27/2017 documented as of this encounter (statuses as of 06/08/2019) Medications Medication Sig Dispensed Refills Start Date [...] as of this encounter (statuses as of 06/08/2019) Active Problems No known active problemsdocumented as [...] Sign Reading Time Taken Comments Blood Pressure 130/78 06/08/2019 9:15 AM CDT Pulse - - Temperature - - Respiratory Rate - - Oxygen Saturation - - Inhaled Oxygen Concentration - - Weight 69.4 kg (153 lb) 06/08/2019 8:37 AM CDT Height - - Body Mass Index 29.88 06/05/2019 4:03 PM CDT documented in this encounter Progress Notes Kia Templeton FNP - 06/08/2019 8:20 AM CDT Cc: Chief Complaint Patient presents with Follow-up Flank Pain right side radiates to RUQ rating 9 on scale 1/10 Tessa Vogel is a 48 year old female. Patient has been seen earlier this week, and multiple times in the past for similar issue. She has abdominal/pelvic pain. Sonogram done 2017 showed right ovarian cysts for which she denies knowing anything about, plus she is currently on her menstrual period reporting abdominal pain/cramp. Earlier this year, she was seen for abdominal pain and CT abdomen/pelvics showed nothing significant except milddiverticulosis with no acute diverticulitis. Through the course of the visit, reviewing these previous encounters with patient, she now said her pain is more on the right rib with no recollection of any injury and no URI symptoms. She also had dizziness with positions change, feels like room is spinning, she is known to have motion sickness/vertigo but only when she is on water which she mentioned on Tuesday. Then, is was that she was going sailing with a Friend and wanted something ahead of time for vertigo/motion sickness/seasickness, thus Meclizine was given to her. Today she states she has not taken the meclizine, and hersymptoms are not acute at this time because they come and go. For this visit, she is more concernedabout the right rib/side pain. She had a UA done on Tuesday because it felt like UTI from the pain on the right side/flank pain. The UA and culture came back normal, but due to other urinary symptoms she reported that day, she was given cipro for 3 days as an empiric therapy prior to the lab/urine analysis resulting. Today, she mentioned she may have kidney stones, and asked if CT could be done, however, because sheappears in no distress, her CBC especially WBC were normal, Urine analysis and culture showed no blood nor trace of infection; she has no fever nor chills, CT will be differed. Allergies Tessa is allergic to codeine; contrast [iodine and iodide containing products]; dilantin [phenytoin]; and penicillin. Medications Outpatient Medications Prior to Visit Medication Sig Dispense Refill ciprofloxacin HCl (CIPRO) 250 mg tablet Take 1 tablet by mouth every 12 ( twelve) hours for 3 days. 6 tablet 0 meclizine (MEDI-MECLIZINE) 25 mg tablet Take 1 tablet by mouth 3 (three) times daily as needed for Dizziness (motion sickness, going sailing) for up to 14 days. 30 tablet 0 cyanocobalamin 1,000 mcg/mL injection no.44-iron,car-FA-dha (PRENATE MINI) [...] file Gets together: Not on file Attends jain service: Not on file Active member of [...] Concern Not on file Social History Narrative Baptist preference: Episcopalian No exposure to cats Denies domestic violence [...] NoFHx Genetic NoFHx Review of Systems Constitutional: Negative. Respiratory: Negative. Negative for apnea, cough, choking, chest tightness, shortness of breath andwheezing. Cardiovascular: Negative. Negative for chest pain, palpitations and leg swelling. Gastrointestinal: Negative. Skin: Negative. Neurological: Negative. Endocrine: Endocrine negative Vital Signs BP 130/78 | Wt 153 lb (69.4 kg) | BMI 29.88 kg/m Physical Exam Constitutional: She is oriented [...] exhibits no distension. There is no tenderness. Neurological: She is alert and oriented to person, place, and time. She displays normal reflexes. Nocranial nerve deficit. She exhibits normal muscle tone. She displays a negative Romberg sign. Coordination and gait normal. Skin: Skin is warm and dry. Capillary refill takes less than 2 seconds. No rash noted. No erythema. No pallor. Nursing note and vitals reviewed. Assessment/Plan 1. Right rib pain: will get an imaging, take NSAID as needed for pain. Avoid any strenuous activities involving the affected region. Further interventions to follow depending on the study result. 2. Abdominal/pelvic pain: Will consider repeat CT for further eval if persistent. RTC if with any new symptoms, problems or concerns; in the mean time , follow up with PHYSICAL THERAPY RESIDENT with regards to the right ovarian cysts which, according to patient was never addressed. 3. Dizziness: Most likely related to vertigo, thus take the meclizine given last visit. To r/o otheretiology, EKG was ordered. Neuro and cardiac exam was unremarkable. Plan of care, desired health behaviors, goals, and medication discussed with patient. Education resources provided and reviewed with AVS. Patient/guardian/family verbalized understanding & agrees to plan of care. This visit did not involve counseling and coordination that comprised more than 50% of the visit time. If applicable, the [facility] database was accessed to review any controlled substance prescription claims data. The [employer] prescription claims data in [employer] was reviewed to assess patient compliance with the medication treatment plan. documented in this encounter Plan of Treatment Name Type Priority Associated Diagnoses Order Schedule EKG-12 LEAD ROUTINE HEART STATION Routine Dizziness Ordered: 06/08/2019 Health Maintenance Due Date Last Done Comments DTaP,Tdap,and Td Vaccines (1 - 1990 Tdap) PAP SMEAR 1992 MAMMOGRAM 2011 INFLUENZA VACCINE (#1) 2019 PNEUMOCOCCAL 0-64 YEARS COMBINED Aged Out No longer eligible based on SERIES patient's age to complete this topic documented as of this encounter Results XR RIBS 3 VW RIGHT (06/08/2019 11:19 AM CDT) Specimen Impressions Performed At No radiographic abnormality PACS/VR/DOSE Narrative Performed At * * * * * * * * ORIGINAL REPORT * * * * * * * * PACS/VR/DOSE EXAM: Right rib series 3 views HISTORY: right rib pain, no apparent injuries, no acute URI. TECHNIQUE:3 images of the right rib cage are obtained. FINDINGS:No displaced fracture is seen involving the rib cage. No bone lesion is noted. Right lung is clear. No pleural effusion or pneumothorax is present. Procedure Note [facility], Radiant Results Inft User - 06/08/2019 11:38 AM CDT * * * * * * * * ORIGINAL REPORT * * * * * * * * EXAM: Right rib series 3 views HISTORY: right rib pain, no apparent injuries, no acute URI. TECHNIQUE:3 images of the right rib cage are obtained. FINDINGS:No displaced fracture is seen involving the rib cage. No bone lesion is noted. Right lung is clear. No pleural effusion or pneumothorax is present. IMPRESSION No radiographic abnormality Performing Organization Address City/State/Zipcode Phone Number PACS/VR/DOSE documented in this encounter Visit Diagnoses Diagnosis Rib pain on right side - Primary Chest pain, unspecified Generalized abdominal pain Abdominal pain, generalized Dizziness Dizziness and giddiness documented in this encounter Insurance Payer Benefit Plan / Subscriber ID Effective Dates Phone Address Type Group [facility] [place] [id number] 2017-Present PPO/POS [employer] [facility] [employer] [employer] EMPLOYEE EMPLOYEE PLAN documented as of this encounter
--- OUTSIDE RECORDS SUMMARY | 2019-08-06 06:19 | XMS REPORT | Summary of Care ---
:1970 Author Organization [facility] Address [address] [place] [address] Care Team Providers Name Role Phone Pcp, Patient Does Not Have A Primary Care Provider Reason for Visit Reason Comments Back Pain right side, x2 days Encounter Details Date Type Department Care Team Description 06/05/2019 Office Visit [facility] Family Kia Templeton FNP Symptoms of urinary tract infection (Primary Dx); Medicine - [address] H/O motion sickness [address] [place] [address] Drive [place], [place] Jjw905 [address] [place], [place] [phone] Allergies Active Allergy Reactions Severity Noted Date [...] file Gets together: Not on file Attends synagogue service: Not on file Active member of [...] Concern Not on file Social History Narrative Sikh preference: Anglican No exposure to cats Denies domestic violence [...] of the visit time. If applicable, the [place] [employer] database was accessed to review any controlled substance prescription claims data. The [employer] prescription claims data in [employer] was reviewed to assess patient compliance with the medication treatment plan. documented in this encounter Plan of Treatment Name Type Priority Associated Diagnoses Order Schedule URINE CULTURE LAB Routine Symptoms of urinary Ordered: 06/05/2019 tract infection CBC WITH DIFF LAB Routine Symptoms of urinary Ordered: 06/05/2019 tract infection COMP. METABOLIC PANEL LAB Routine Symptoms of urinary Ordered: 06/05/2019 (24520) tract infection CBC WITH DIFFERENTIAL LAB Routine [...] ID Effective Dates Phone Address Type Group [facility] [id number] 2017-Present PPO/POS [employer] EMPLOYEE EMPLOYEE PLAN Jose Alberto (Vendor) [place] [address] documented as of this encounter
--- OUTSIDE RECORDS SUMMARY | 2019-08-06 06:19 | XMS REPORT | Summary of Care ---
:[address] [facility] Address [address] [place] [address] Care Team Providers Name Role Phone Pcp, Patient Does Not Have A Primary Care Provider Encounter Details Date Type Department Care Team Description 06/08/2019 Letter (Out) [facility] Family Kia Templeton FNP [facility] [address] [place] [address] [place] [address] [phone] Allergies Active Allergy Reactions Severity Noted Date [...] of this encounter Last Filed Vital Signs Not on filedocumented in this encounter Plan of Treatment Health Maintenance Due Date Last Done Comments DTaP,Tdap,and Td Vaccines (1 - 1990 Tdap) PAP SMEAR 1992 MAMMOGRAM 2011 INFLUENZA VACCINE (#1) 2019 PNEUMOCOCCAL 0-64 YEARS COMBINED Aged Out No longer eligible based on SERIES patient's age to complete this topic documented as of this encounter Results Not on filedocumented in this encounter Insurance Payer Benefit Plan / Subscriber ID Effective Dates Phone Address Type Group [facility] [id number] 2017-Present PPO/POS [facility] EMPLOYEE EMPLOYEE PLAN documented as of this encounter
--- OUTSIDE RECORDS SUMMARY | 2019-08-06 06:19 | XMS REPORT | Summary of Care ---
:1970 Author Organization [facility] Address [address] [place] [address] Care Team Providers Name Role Phone Pcp, Patient Does Not Have A Primary Care Provider Reason for Referral Radiology Services (Routine) Status Reason Specialty Diagnoses / Referred By Referred To Procedures Contact Contact Closed Diagnostic Diagnoses Rib pain on right side Jareth, Kia, Radiology Procedures XR RIBS 3 VW RIGHT TETRYL BOILING TUB OPERATOR [address] [address] Reason for Visit Reason Comments Follow-up Flank Pain right side radiates to RUQ rating 9 on scale 1/10 Encounter Details Date Type Department Care Team Description 06/08/2019 Office Visit [facility] Family Kia Templeton, TETRYL BOILING TUB OPERATOR Rib pain on right side (Primary Dx); Medicine - [place] [address] Generalized abdominal pain; [address] [place] [address] [place] [phone] [address] Allergies Active Allergy Reactions Severity Noted [...] RUQ rating 9 on scale 1/10 Tessa Vgoel is a 48 year old female. Patient [...] Concern Not on file Social History Narrative Taoism preference: Church No exposure to cats Denies domestic violence [...] the mean time , follow up with SECURITY GUARD SUPERVISOR with regards to the right ovarian cysts [...] of the visit time. If applicable, the [facility] database was accessed to review any controlled substance prescription claims data. The [employer] prescription claims data in [employer] was reviewed to assess patient compliance with [...] effusion or pneumothorax is present. Procedure Note [facility] [[email or web address]], Radiant Results Inft User - 06/08/2019 11:38 [...] ID Effective Dates Phone Address Type Group [facility] [employer] [facility] [place] [id number] 2017-Present PPO/POS [employer] [facility] [employer] EMPLOYEE EMPLOYEE PLAN documented as of this encounter
--- OUTSIDE RECORDS SUMMARY | 2019-08-06 06:19 | XMS REPORT ---
:1970 [facility] Address [address] [place] [address] [address] [place] [address] Care Team Providers Name Role Phone Unavailable Unavailable Unavailable Problems This patient has no known problems. Allergies, Adverse Reactions, Alerts This patient has no known allergies or adverse reactions. Medications This patient has no known medications.
--- OUTSIDE RECORDS SUMMARY | 2019-08-06 06:19 | XMS REPORT | Summary of Care ---
:1970 Author Organization [facility] Address [address] [place] [address] Care Team Providers Name Role Phone Pcp, Patient Does Not Have A Primary Care Provider Reason for Visit Reason Comments LAB Encounter Details Date Type Department Care Team Description 06/06/2019 Slubber Tender Visit [facility] Jareth Kia, CHARACTER ACTRESS [address] [place] [address] Symptoms involving urinary system; Professional Office 2, Adc Lab Personal history of problems Building Phlebotomy Lab Professional Office Building [address] [facility] , [address] [place] [address] Allergies Active Allergy Reactions Severity Noted Date [...] Results Not on filedocumented in this encounter Visit Diagnoses Diagnosis Symptoms involving urinary system Other symptoms involving urinary system Personal history of problems documented in this encounter Insurance Payer Benefit Plan / Subscriber ID Effective Dates Phone Address Type Group [facility] - [facility] [id number] 2017-Present PPO/POS [facility] EMPLOYEE EMPLOYEE PLAN documented as of this encounter
--- OUTSIDE RECORDS SUMMARY | 2019-08-06 06:19 | XMS REPORT | Summary of Care ---
:1970 Author Organization [facility] - Health Address [address] [place] [address] Care Team Providers Name Role Phone Pcp, Patient Does Not Have A Primary Care Provider Encounter Details Date Type Department Care Team Description 06/05/2019 Orders Only [facility] Doctor Unassigned, No [address] [facility] [place] [address] [place] [address] Allergies Active Allergy Reactions Severity Noted Date [...] 29 mg iron-1 mg -350 mg Cap documented as of this encounter (statuses as of 06/05/2019) Active Problems Not on filedocumented as of this encounter (statuses as of 06/05/2019) Social History Tobacco Use Types Packs/Day Years [...] filedocumented in this encounter Plan of Treatment Date Type Specialty Care Team Description 06/05/2019 Office Visit Family Medicine Kia Templeton FNP [address] [place] [address] Health Maintenance Due Date Last Done Comments DTaP,Tdap,and Td Vaccines (1 - 1990 Tdap) PAP SMEAR 1992 MAMMOGRAM 2011 INFLUENZA VACCINE (#1) 2019 PNEUMOCOCCAL 0-64 YEARS COMBINED Aged Out No longer eligible based on SERIES patient's age to complete this topic documented as of this encounter Procedures Procedure Name Priority Date/Time Associated Diagnosis Comments ASSIGNMENT OF BENEFITS Routine 06/05/2019 3:36 PM CDT documented in this encounter Results Not on filedocumented in this encounter Insurance Payer Benefit Plan / Subscriber ID Effective Dates Phone Address Type Group [facility] [id number] 2017-Present PPO/POS [facility] EMPLOYEE EMPLOYEE PLAN documented as of this encounter
--- OUTSIDE RECORDS SUMMARY | 2019-08-06 06:20 | XMS REPORT | Summary of Care ---
:1970 Author Organization [facility] Address [address] [place] [address] Care Team Providers Name Role Phone Pcp, Patient Does Not Have A Primary Care Provider Reason for Referral Radiology Services (Routine) Status Reason Specialty Diagnoses / Referred By Referred To Procedures Contact Contact Closed Diagnostic Diagnoses Rib pain on right side Anene, Kia, Radiology Procedures XR RIBS 3 VW RIGHT PREMIUM REPRESENTATIVE [address] [address] Radiology Services (Routine) Status Reason Specialty Diagnoses / Referred By Referred To Procedures Contact Contact Closed Diagnostic Diagnoses Rib pain on right side Anene, Kia, Radiology Procedures XR RIBS 3 VW RIGHT PREMIUM REPRESENTATIVE [address] [address] Reason for Visit Radiology Services (Routine) Status Reason Specialty Diagnoses / Referred By Referred To Procedures Contact Contact Closed Diagnostic Diagnoses Rib pain on right side Anene, Kia, Radiology Procedures XR RIBS 3 VW RIGHT PREMIUM REPRESENTATIVE [address] [address] Encounter Details Date Type Department Care Team Description 06/08/2019 Hospital Encounter [facility] Anene, Kia, PREMIUM REPRESENTATIVE Arrived [facility] [address] [facility] [address] [address] [place], [place] [phone] [address] Allergies Active Allergy Reactions Severity Noted Date Comments Codeine Nausea and/or Vomiting 04/27/2017 Iodine And Iodide Containing Anaphylaxis 02/25/2018 Products Phenytoin Rash 04/27/2017 Penicillin Rash 04/27/2017 documented as of this encounter (statuses as of 06/09/2019) Medications Medication Sig Dispensed Refills Start Date [...] going sailing) for up to 14 days. documented as of this encounter (statuses as of 06/09/2019) Active Problems No known active problemsdocumented as [...] Procedure Name Priority Date/Time Associated Diagnosis Comments XR RIBS 3 VW RIGHT Routine 06/08/2019 11:19 AM Rib pain on right Results for this CDT side procedure are in the results section. documented in this encounter Results XR RIBS 3 VW [...] effusion or pneumothorax is present. Procedure Note [facility], Radiant Results Inft User - 06/08/2019 11:38 [...] Diagnoses Diagnosis Rib pain on right side Chest pain, unspecified documented in this encounter Insurance Payer Benefit Plan / Subscriber ID Effective Dates Phone Address Type Group [facility] - [facility] [id number] 2017-Present PPO/POS [facility] EMPLOYEE EMPLOYEE PLAN documented as of this encounter
--- OUTSIDE RECORDS SUMMARY | 2019-08-06 06:20 | XMS REPORT | Summary of Care ---
:1970 Author Organization [facility] Address [address] [place] [address] Care Team Providers Name Role Phone Pcp, Patient Does Not Have A Primary Care Provider Reason for Visit Reason Comments Results Encounter Details Date Type Department Care Team Description 06/08/2019 Telephone [facility] Kia Templeton FNP Results - [place] [address] [facility] [address] [place] [address] [place] [phone] Allergies Active Allergy Reactions Severity Noted Date Comments Codeine Nausea and/or Vomiting 04/27/2017 Iodine And Iodide Containing Anaphylaxis 02/25/2018 Products Phenytoin Rash 04/27/2017 Penicillin Rash 04/27/2017 documented as of this encounter (statuses as of 06/11/2019) Medications Medication Sig Dispensed Refills Start Date [...] as of this encounter (statuses as of 06/11/2019) Active Problems No known active problemsdocumented as [...] ID Effective Dates Phone Address Type Group [facility] - [facility] [id number] 2017-Present PPO/POS [facility] EMPLOYEE EMPLOYEE PLAN documented as of this encounter
--- OUTSIDE RECORDS SUMMARY | 2019-08-06 06:20 | XMS REPORT | Summary of Care ---
:1970 Author Organization [facility] - Health Address [address] [place] [address] Care Team Providers Name Role Phone Pcp, Patient Does Not Have A Primary Care Provider Encounter Details Date Type Department Care Team Description 06/06/2019 Orders Only [facility] Doctor Unassigned, No [address] [facility] [place] [address] [address] [place] [address] Allergies Active Allergy Reactions Severity Noted Date [...] Procedure Name Priority Date/Time Associated Diagnosis Comments AGREEMENTS AUTHORIZATIONS Routine 06/06/2019 12:01 AM AND IRREVOCABLE CDT ASSIGNMENTS (FORM 2001) documented in this encounter Results Not on filedocumented in this encounter Insurance Payer Benefit Plan / Subscriber ID Effective Dates Phone Address Type Group [facility] - [facility] [id number] 2017-Present PPO/POS [facility] EMPLOYEE EMPLOYEE PLAN documented as of this encounter
--- OUTSIDE RECORDS SUMMARY | 2019-08-06 06:20 | XMS REPORT | Summary of Care ---
:1970 Author Organization [facility] Address [address] [place] [id number] Care Team Providers Name Role Phone Pcp, Patient Does Not Have A Primary Care Provider Reason for Visit (Routine) Status Reason Specialty Diagnoses / Referred By Referred To Procedures Contact Contact Closed IM-INTERNAL Procedures Kia Templeton, [facility], [facility] MEDICINE / Heart EKG-12 LEAD DIVING COACH Heart Station [facility] EKG [address] [address] Encounter Details Date Type Department Care Team Description 06/08/2019 Hospital Encounter Critical access hospital Kia Templeton FNP [address] [address] Arrived Heart Center Station, [facility] Heart [address] [facility] [place] [address] Allergies Active Allergy Reactions Severity [...] Procedure Name Priority Date/Time Associated Diagnosis Comments EKG-12 LEAD Routine 06/08/2019 10:38 AM CDT documented in this encounter Results Not on filedocumented in this encounter Insurance Payer Benefit Plan / Subscriber ID Effective Dates Phone Address Type Group [facility] [id number] 2017-Present PPO/POS [employer] EMPLOYEE PLAN documented as of this encounter
--- OUTSIDE RECORDS SUMMARY | 2019-08-06 06:20 | XMS REPORT | Summary of Care ---
:1970 Author Organization [facility] Address [address] [place] [id number] Care Team Providers Name Role Phone Pcp, Patient Does Not Have A Primary Care Provider Reason for Referral (Routine) Status Reason Specialty Diagnoses / Referred By Referred To Procedures Contact Contact New Request Obstetrics & Diagnoses Cyst of ovary, unspecified laterality Kia Templeton, Gynecology Procedures CONSULT/REFERRAL MED SURG RN CUSTOMER AGENT [address] [address] Reason for Visit Reason Comments Results Encounter Details Date Type Department Care Team Description 06/12/2019 Telephone [facility] Family Medicine Kia Templeton FNP Results - [address] [place] [address] [address] [place] [address] Allergies Active Allergy Reactions Severity Noted Date Comments Codeine Nausea and/or Vomiting 04/27/2017 Iodine And Iodide Containing Anaphylaxis 02/25/2018 Products Phenytoin Rash 04/27/2017 Penicillin Rash 04/27/2017 documented as of this encounter (statuses as of 06/14/2019) Medications Medication Sig Dispensed Refills Start Date [...] as of this encounter (statuses as of 06/14/2019) Active Problems No known active problemsdocumented as [...] filedocumented in this encounter Visit Diagnoses Diagnosis Cyst of ovary, unspecified laterality - Primary documented in this encounter Insurance Payer Benefit Plan / Subscriber ID Effective Dates Phone Address Type Group [facility] [id number] 2017-Present PPO/POS [employer] documented as of this encounter
== END 2019-08-04 18:12 | disposition home or self-care (01) ==
LOC: ER 15:21
DX: R20.2 Paresthesia of skin (principal); Z88.0 Allergy status to penicillin; Z88.5 Allergy status to narcotic agent; Z88.8 Allergy status to other drugs, medicaments and biological substances
CPT/HCPCS: 36415; 70450; 71045; 80048; 80076; 83735; 83880; 84484; 85025; 85610; 93005; 99283

== ENCOUNTER 2019-12-01 15:38 | Emergency (ER) | payer BC ==
--- OUTSIDE RECORDS SUMMARY | 2019-12-01 15:49 | XMS REPORT ---
:1970 Author Organization [facility] Address [address] [place] [address] [address]. [address] [place] [address] Care Team Providers Name Role Phone Unavailable Unavailable Unavailable Problems This patient has no known problems. Allergies, Adverse Reactions, Alerts This patient has no known allergies or adverse reactions. Medications This patient has no known medications.
--- NOTE | 2019-12-01 17:39 | RAD REPORT ---
EXAM DESCRIPTION: RAD - Knee Left 3 View - 12/01/2019 4:59 pm CLINICAL HISTORY: Left knee pain FINDINGS: No fracture or dislocation is seen. Mild medial joint space narrowing
--- NOTE | 2019-12-01 17:43 | RAD REPORT ---
EXAM DESCRIPTION: RAD - Foot Left 3 View - 12/01/2019 5:01 pm CLINICAL HISTORY: Left Foot pain FINDINGS: No fracture or dislocation is seen. Postsurgical changes involve the first metatarsal. Bones are osteoporotic
--- NOTE | 2019-12-01 17:46 | EDPHYS ---
Physician Documentation [facility] Name: Tessa Vogel Age: 49 yrs Sex: Female : 1970 Arrival Date: 12/01/2019 Time: 15:41 Bed 14 Private MD: Alexandrea Martinez R ED Physician Pankaj Franklin HPI: 11/30 17:15 This 49 yrs old Female presents to ER via Ambulatory with complaints of Knee kb Pain. 17:15 The patient presents with pain, that is acute, tenderness. The complaints affect the kb left knee and lateral side of left foot. Context: The problem was sustained at home, resulted from twisting of the extremity, the patient can fully bear weight, the patient is able to ambulate. Onset: The symptoms/episode began/occurred 2 week(s) ago. Modifying factors: The symptoms are alleviated by nothing. the symptoms are aggravated by weight bearing. Associated signs and symptoms: The patient has no apparent associated signs or symptoms. Treatment prior to arrival includes: no previous treatment. Severity of symptoms: At their worst the symptoms were moderate, in the emergency department the symptoms are unchanged. The patient has not experienced similar symptoms in the past. The patient has not recently seen a physician. Pt reports knee pain and lateral foot pain that started 2 weeks ago. Pt believes she twisted it. Historical: - Allergies: 15:54 Codeine; tw2 15:54 PENICILLINS; tw2 15:54 Dilantin; tw2 - Home Meds: 15:54 None [Active]; tw2 - PMHx: 15:54 uterine fibroids; tw2 - PSHx: 15:54 breast cyst removal; Cholecystectomy; Appendectomy; tw2 - Immunization history:: Adult Immunizations. - Social history:: Smoking status: . ROS: 17:13 Constitutional: Negative for fever, chills, and weight loss, Cardiovascular: Negative kb for chest pain, palpitations, and edema, Respiratory: Negative for shortness of breath, cough, wheezing, and pleuritic chest pain, Abdomen/GI: Negative for abdominal pain, nausea, vomiting, diarrhea, and constipation, Back: Negative for injury and pain, Skin: Negative for injury, rash, and discoloration, Neuro: Negative for headache, weakness, numbness, tingling, and seizure. 17:13 MS/extremity: Positive for injury or acute deformity, pain, tenderness, of the lateral side of left foot and left knee. Exam: 17:15 Constitutional: This is a well developed, well nourished patient who is awake, alert, kb and in no acute distress. Head/Face: Normocephalic, atraumatic. Neck: Trachea midline, no thyromegaly or masses palpated, and no cervical lymphadenopathy. Supple, full range of motion without nuchal rigidity, or vertebral point tenderness. No Meningismus. Chest/axilla: Normal chest wall appearance and motion. Nontender with no deformity. No lesions are appreciated. Cardiovascular: Regular rate and rhythm with a normal S1 and S2. No gallops, murmurs, or rubs. Normal PMI, no JVD. No pulse deficits. Respiratory: Lungs have equal breath sounds bilaterally, clear to auscultation and percussion. No rales, rhonchi or wheezes noted. No increased work of breathing, no retractions or nasal flaring. Abdomen/GI: Soft, non-tender, with normal bowel sounds. No distension or tympany. No guarding or rebound. No evidence of tenderness throughout. Skin: Warm, dry with normal turgor. Normal color with no rashes, no lesions, and no evidence of cellulitis. Neuro: Awake and alert, GCS 15, oriented to person, place, time, and situation. Cranial nerves II-XII grossly intact. Motor strength 5/5 in all extremities. Sensory grossly intact. Cerebellar exam normal. Normal gait. 17:15 Musculoskeletal/extremity: Extremities: grossly normal except: noted in the lateral side of left foot and left knee: decreased ROM, pain, tenderness, ROM: limited active range of motion due to pain, in the left knee, Circulation is intact in all extremities. Sensation intact. Weight bearing: able to fully bear weight. Vital Signs: 15:52 BP 142 / 105; Pulse 65; Resp 17; Temp 97.6(TE); Pulse Ox 100% on R/A; Weight 66.68 kg tw2 (R); Height 4 ft. 11 in. (149.86 cm); Pain 8/10; 15:52 Body Mass Index 29.69 (66.68 kg, 149.86 cm) tw2 MDM: 16:05 Patient medically screened. kb 17:12 Data reviewed: vital signs, nurses notes. Data interpreted: Pulse oximetry: on room air kb is 100 %. Interpretation: normal. Counseling: I had a detailed discussion with the patient and/or guardian regarding: the historical points, exam findings, and any diagnostic results supporting the discharge/admit diagnosis, radiology results, the need for outpatient follow up, a orthopedic surgeon, to return to the emergency department if symptoms worsen or persist or if there are any questions or concerns that arise at home. 11/30 16:06 Order name: Knee Left 3 View XRAY; Complete Time: 17:42 kb 11/30 16:08 Order name: Foot Left 3 View XRAY; Complete Time: 17:44 kb 11/30 17:44 Order name: Landon Wrap; Complete Time: 18:15 kb 11/30 17:45 Order name: Crutches; Complete Time: 18:15 kb Administered Medications: No medications were administered Disposition: 18:59 Co-signature as Attending Physician, Pankaj Franklin MD. rn Disposition: 12/01/19 17:45 Discharged to Home. Impression: Pain in left knee. - Condition is Stable. - Discharge Instructions: Knee Pain, [id number]. - Medication Reconciliation Form, Thank You Letter, Antibiotic Education, Prescription Opioid Use form. - Follow up: Emergency Department; When: As needed; Reason: Worsening of condition. Follow up: Private Physician; When: 2 - 3 days; Reason: Recheck today's complaints, Continuance of care, Re-evaluation by your physician. Signatures: Dispatcher [employer] EDMN Kristal Manrique, EVANS-C APPLIED MARINE PHYSICS PROFESSOR-Ana Golden RN RN aj1 Pankaj Franklin MD MD rn Wise, Tara, RN RN tw2 Corrections: (The following items were deleted from the chart) 18:59 17:45 12/01/2019 17:45 Discharged to Home. Impression: Pain in left knee. Condition is aj1 Stable. Forms are Medication Reconciliation Form, Thank You Letter, Antibiotic Education, Prescription Opioid Use. Follow up: Emergency Department; When: As needed; Reason: Worsening of condition. Follow up: Private Physician; When: 2 - 3 days; Reason: Recheck today's complaints, Continuance of care, Re-evaluation by your physician. kb
--- NOTE | 2019-12-01 17:46 | ER ---
Nurse's Notes [facility] Name: Tessa Vogel Age: 49 yrs Sex: Female : 1970 Arrival Date: 12/01/2019 Time: 15:41 Bed 14 Private MD: Alexandrea Martinez R Diagnosis: Pain in left knee Presentation: 11/30 15:52 Chief complaint: Patient states: my LEFT knee is really bothering me, i guess it tw2 started probably 2 weeks ago, i cant remember how or what but i tried putting my knee back in place and every since then i have been having trouble walking and today it is worse, like i cant bending, i feel like there is something from keeping me from bending it. Coronavirus screen: The patient has NOT traveled to a country currently being monitored by the CDC within the last 14 days. Ebola Screen: Patient denies travel to an Ebola-affected area in the 21 days before illness onset. Initial Sepsis Screen: Does the patient meet any 2 criteria? No. Patient's initial sepsis screen is negative. Does the patient have a suspected source of infection? No. Patient's initial sepsis screen is negative. Risk Assessment: Do you want to hurt yourself or someone else? Patient reports no desire to harm self or others. 15:52 Method Of Arrival: Ambulatory tw2 15:52 Acuity: NATALIO 4 tw2 15:55 Chief complaint: Patient states: even down to my LEFT ankle it is swollen, i will be tw2 honest i was drinking and i dont know what happened. Triage Assessment: 15:54 General: Appears in no apparent distress. slender, well groomed, Behavior is calm, tw2 cooperative, appropriate for age. Pain: Complains of pain in lateral aspect of left knee, posterior aspect of left knee, medial aspect of left knee and left knee. Historical: - Allergies: 15:54 Codeine; tw2 15:54 PENICILLINS; tw2 15:54 Dilantin; tw2 - Home Meds: 15:54 None [Active]; tw2 - PMHx: 15:54 uterine fibroids; tw2 - PSHx: 15:54 breast cyst removal; Cholecystectomy; Appendectomy; tw2 - Immunization history:: Adult Immunizations. - Social history:: Smoking status: . Screenin:28 Abuse screen: Denies threats or abuse. Denies injuries from another. Nutritional aj1 screening: No deficits noted. Tuberculosis screening: No symptoms or risk factors identified. 18:58 Fall Risk None identified. aj1 Assessment: 16:28 General: Appears in no apparent distress. comfortable, Behavior is calm, cooperative, aj1 appropriate for age. Pain: Complains of pain in left knee. Neuro: Level of Consciousness is awake, alert, obeys commands, Oriented to person, place, time, situation. Cardiovascular: Patient's skin is warm and dry. Respiratory: Airway is patent Respiratory effort is even, unlabored, Respiratory pattern is regular, symmetrical. GI: No signs and/or symptoms were reported involving the gastrointestinal system. : No signs and/or symptoms were reported regarding the genitourinary system. EENT: No signs and/or symptoms were reported regarding the EENT system. Derm: Skin is pink, warm \T\ dry. normal. Musculoskeletal: Range of motion: limited in left knee. 17:30 Reassessment: Patient appears in no apparent distress at this time. No changes from aj1 previously documented assessment. Patient and/or family updated on plan of care and expected duration. Pain level reassessed. Patient is alert, oriented x 3, equal unlabored respirations, skin warm/dry/pink. 18:30 Reassessment: Patient appears in no apparent distress at this time. No changes from aj1 previously documented assessment. Patient and/or family updated on plan of care and expected duration. Pain level reassessed. Patient is alert, oriented x 3, equal unlabored respirations, skin warm/dry/pink. Vital Signs: 15:52 BP 142 / 105; Pulse 65; Resp 17; Temp 97.6(TE); Pulse Ox 100% on R/A; Weight 66.68 kg tw2 (R); Height 4 ft. 11 in. (149.86 cm); Pain 8/10; 15:52 Body Mass Index 29.69 (66.68 kg, 149.86 cm) tw2 ED Course: 15:41 Patient arrived in ED. ag5 15:42 Alexandrea Martinez MD is Private Physician. ag5 15:54 Triage completed. tw2 15:55 Arm band placed on. tw2 16:05 Kristal Manrique FNP-C is [facility]. kb 16:05 Pankaj Franklin MD is Attending Physician. kb 16:27 Ana Mcclure, RN is Primary Nurse. aj1 16:28 Patient has correct armband on for positive identification. Bed in low position. Call aj1 light in reach. 16:28 No provider procedures requiring assistance completed. aj1 17:00 Knee Left 3 View XRAY In Process Unspecified. EDMS 17:01 Foot Left 3 View XRAY In Process Unspecified. EDCA 18:16 Crutch training done. [facility] 18:58 Patient did not have IV access during this emergency room visit. aj1 Administered Medications: No medications were administered Outcome: 17:45 Discharge ordered by MD. kb 18:58 Discharged to home ambulatory. aj1 18:58 Condition: good 18:58 Discharge instructions given to patient, Instructed on discharge instructions, follow up and referral plans. Demonstrated understanding of instructions, follow-up care. 18:59 Patient left the ED. aj Signatures: Dispatcher [employer] EDCA Kristal Manrique, BRACER-C BRACER-Ckb Ana Mcclure, RN RN [email or web address] Trupti Martinez, AUSTEN RN Amanda Fonseca [facility] Monica Hicks [facility]
[2019-12-01 19:05] VITALS: BP 142/105; TEMP 97.6; O2SAT 100
== END 2019-12-01 18:59 | disposition home or self-care (01) ==
LOC: ER 15:38
DX: M25.562 Pain in left knee (principal); Z88.0 Allergy status to penicillin; Z88.5 Allergy status to narcotic agent; Z88.8 Allergy status to other drugs, medicaments and biological substances
CPT/HCPCS: 99283

== ENCOUNTER 2022-05-14 10:55 | Emergency (ER) | payer BC ==
--- OUTSIDE RECORDS SUMMARY | 2022-05-14 10:58 | XMS REPORT | Continuity of Care Document ---
:1970 Author Organization [facility] t Address [address] [place] [address] [address] [place] [address] Care Team Providers Name Role Phone MISSY MCKEON Primary Care Physician Unavailable DARRYL GARCIA Attending Clinician Unavailable Provider, [facility] Attending Clinician Unavailable ANDIE VELASCO Attending Clinician Unavailable Only, Jose Monk Test Attending Clinician Unavailable Unknown, Attending Attending Clinician Unavailable TREY FERNANDEZ Attending Clinician Unavailable Trey Fernandez MD Attending Clinician Payers Payer Name Policy Type Policy Number Effective Date Expiration Date S ource Problems Condition Condition Condition Status Onset Resolution Last Treating Co mments Source Name Details Category Date Date Treatment Clinician Date Pain Pain Disease Active Univers involving involving 3-14 [place]ical both hands both hands Br anch Neuropathy Neuropathy Disease Active U nivers 3-14 ity of 00:00: [place] 00 Medical Branch Gastroesop Gastroesop Disease Active 2020-09 Overview : Univers hageal hageal 2-03 Formattin ity of reflux reflux 00:00: g of this [place] disease, disease, 00 note Medica l unspecifie unspecifie might be Branch d whether d whether different esophagiti esophagiti from the s present s present original. Added automatic ally from request for surgery [id number] Chronic Chronic Disease Active 2020-09 Univers abdominal abdominal 0-17 ity of pain pain 00:00: [place] 00 Medical Branch Tremor of Tremor of Disease Active 2020-09 Uni vers left hand left hand 0-17 ity of 00:00: [place] [facility] Breast Breast Disease Active Univers cancer cancer 8-25 [place] of screening screening 00:[place] Rectal Rectal Disease Active Univers bleeding bleeding 8-25 ity of 00:00: [place] [facility] Family Family Disease Active Univers history of history of 8-25 it y of cancer cancer 00:00: [place] [facility] Allergies, Adverse Reactions, Alerts Allergy Allergy Status Severity Reaction(s) Onset Inactive Treating Comm ents Source Name Type Date Date Clinician Hydroxyz Propensi Active Rash Univer s ine ty to 10-09 ity of adverse 00:00: [place] reaction Medical s Branch HYDROXYZ DRUG Active Rash Univers INE INGREDI 10-09 ity of 00:00: [place] [facility] Iodine Propensi Active Anaphylaxis Uni vers And ty to 02-25 ity of Iodide adverse 00:00: [place] Containi reaction Medica l ng s Branch Products IODINE Drug Active Anaphylaxis Unive rs AND Class 02-25 ity of IODIDE 00:00: [place] CONTAINI 00 Medical NG Branch PRODUCTS CODEINE DRUG Active N/V 2017- Univers INGREDI 04-27 ity of 00:00: [place] 00 Medical Branch PHENYTOI DRUG Active Rash Univers N INGREDI 04-27 ity of 00:00: [place] 00 Medical Branch PENICILL DRUG Active Rash 2017 Univers IN INGREDI 04-27 ity of 00:00: [place] [facility] Penicill Propensi Active Rash 2017 Univer s in ty to 04-27 ity of adverse 00:00: [place] reaction 00 Medical s Branch Codeine Propensi Active Nausea 2017- Univers ty to and/or 04-27 ity of adverse Vomiting 00:00: [place] reaction Medical s Branch Phenytoi Propensi Active Rash Univer s n ty to 04-27 ity of adverse 00:00: [place] reaction 00 Medical s Branch Social History Social Habit Start Date Stop Date Quantity Comments Source History SDOH University o f Alcohol Frequency [place] M edical Branch History SDOH University o f Alcohol Std [place] Medical Drinks Branch History SDHI University o f Alcohol Binge [place] Medic al Branch Exposure to 2022-03-21 2022-03-31 Not sure [facility] SARS-CoV-2 00:00:00 12:17:00 [facility] (event) Branch Alcohol intake 2022-03-22 2022-03-22 Current drinker Unive rsity of 00:00:00 00:00:00 of alcohol [place] Medical (finding) Branch Tobacco use and 2017-04-27 2017-04-27 Never used Universit y of exposure 00:00:00 00:00:00 [facility] Alcohol Comment 2017-04-27 2017-04-27 Rare Universit y of 00:00:00 00:00:00 [facility] Sex [birth year] Universit y of 00:00:00 00:00:00 [facility] Smoking Status Start Date Stop Date Source Never smoker [facility] Medications Ordered Filled Start Stop Current Ordering Indication Dosage Frequency Signature Comments Components Source Medication Medication Date Date Medication? Clinician (SIG) Name Name pantoprazol Yes [id number] 40mg Take 1 Univers e 40 mg EC 6-27 tablet by ity of tablet 00:00: mouth [place] 00 daily. Medical Branch pantoprazol Yes [id number] 40mg Take 1 Univers e 40 mg EC 6-27 tablet by ity of tablet 00:00: mouth [place] 00 daily. Medical Branch pantoprazol Yes [id number] 40mg Take 1 Univers e 40 mg EC 6-27 tablet by ity of tablet 00:00: mouth [place] 00 daily. Medical Branch pantoprazol Yes [id number] 40mg Take 1 U nivers e 40 mg EC 6-16 tablet by ity of tablet 00:00: mouth [place] 00 daily. Medical Branch pantoprazol Yes [id number] 40mg Take 1 U nivers e 40 mg EC 6-16 tablet by ity of tablet 00:00: mouth [place] 00 daily. Medical Branch pantoprazol Yes [id number] 40mg Take 1 U nivers e 40 mg EC 6-16 tablet by ity of tablet 00:00: mouth [place] 00 daily. Medical Branch scopolamine Yes [id number] 1.5mg Apply 1 Univers transdermal 6-07 Patch to ity of 1 mg over 3 00:00: skin every [place] days patch 00 72 Medical (seventy-t Branch wo) hours. scopolamine 2021-0 Yes [id number] 1.5mg Apply 1 Univers transdermal 6-07 Patch to ity of 1 mg over 3 00:00: skin every [place] days patch 00 72 Medical (seventy-t [place] wo) hours. scopolamine 2021-0 Yes [id number] 1.5mg Apply 1 Univers transdermal 6-07 Patch to ity of 1 mg over 3 00:00: skin every [place] days patch 00 72 Medical (seventy-t [place] wo) hours. clotrimazol 0 Yes [id number] Apply to [facility] e-betametha 6-06 area(s) 2 ity of sone 00:00: (two) [place] (LOTRISONE) 00 times Medical cream daily. Branch clotrimazol 0 Yes [id number] Apply to [facility] e-betametha 6-06 area(s) 2 ity of sone 00:00: (two) [place] (LOTRISONE) 00 times Medical cream daily. Branch clotrimazol 0 Yes [id number] Apply to [facility] e-betametha 6-06 area(s) 2 ity of sone 00:00: (two) [place] (LOTRISONE) 00 times Medical cream daily. Branch methylPREDN 0 Yes [id number] Take by Univers ISolone 5-10 mouth ity of (MEDROL, 00:00: SEE-INSTRU Chao as MIKE,) 4 mg 00 CTIONS. Medica l tablets follow Branch package directions bromphenira Yes [id number] 10mL Take 10 mL Univers mine-pseudo 5-10 by mouth 4 it y of ephedrine-D 00:00: (four) [place] (BROMFED 00 times Medical DM) 2-30-10 daily as Bran ch mg/5 mL needed for syrup Congestion /Allergies or Cold symptoms. albuterol 0 Yes [id number] 2{puff} Inhale 2 Univers 90 5-10 Puffs ity of mcg/actuati 00:00: every 6 [place] on inhaler 00 (six) Medical hours as Branch needed for Wheezing, Shortness of Breath or Chest tightness. azelastine- 0 Yes [id number] 1{spray Use 1 Univers fluticasone 5-10 } [place] in ity of 137-50 00:00: each [place] mcg/spray 00 nostril 2 Medic al nasal spray (two) Branch times daily. promethazin Yes [id number] 5mL Take 5 mL Univers e-dextromet 5-10 by mouth ity of horphan 00:00: every 4 [place] 6.25-15 00 (four) Medical mg/5 mL hours as Branch syrup needed for Cough or Cold symptoms. methylPREDN Yes [id number] Take by Univers ISolone 5-10 mouth ity of (MEDROL, 00:00: SEE-INSTRU [place] as MIKE,) 4 mg 00 CTIONS. Medica l tablets follow Branch package directions bromphenira Yes [id number] 10mL Take 10 mL Univers mine-pseudo 5-10 by mouth 4 it y of ephedrine-D 00:00: (four) [place] (BROMFED 00 times Medical DM) 2-30-10 daily as Bran ch mg/5 mL needed for syrup Congestion /Allergies or Cold symptoms. albuterol Yes [id number] 2{puff} Inhale 2 Univers 90 5-10 Puffs ity of mcg/actuati 00:00: every 6 [place] on inhaler 00 (six) Medical hours as Branch needed for Wheezing, Shortness of Breath or Chest tightness. azelastine- Yes [id number] 1{spray Use 1 Univers fluticasone 5-10 } [place] in ity of 137-50 00:00: each [place] mcg/spray 00 nostril 2 Medic al nasal spray (two) Branch times daily. promethazin Yes [id number] 5mL Take 5 mL Univers e-dextromet 5-10 by mouth ity of horphan 00:00: every 4 [place] 6.25-15 00 (four) Medical mg/5 mL hours as Branch syrup needed for Cough or Cold symptoms. methylPREDN 0 Yes [id number] Take by Univers ISolone 5-10 mouth ity of (MEDROL, 00:00: SEE-INSTRU [place] as MIKE,) 4 mg 00 CTIONS. Medica l tablets follow Branch package directions bromphenira 0 Yes [id number] 10mL Take 10 mL Univers mine-pseudo 5-10 by mouth 4 it y of ephedrine-D 00:00: (four) [place] M (BROMFED 00 times Medical DM) 2-30-10 daily as Bran ch mg/5 mL needed for syrup Congestion /Allergies or Cold symptoms. albuterol 2021-0 Yes [id number] 2{puff} Inhale 2 Univers 90 5-10 Puffs ity of mcg/actuati 00:00: every 6 [place] on inhaler 00 (six) Medical hours as Branch needed for Wheezing, Shortness of Breath or Chest tightness. azelastine- 2021-0 Yes [id number] 1{spray Use 1 Univers fluticasone 5-10 } [place] in ity of 137-50 00:00: each [place] mcg/spray 00 nostril 2 Medic al nasal spray (two) Branch times daily. promethazin 2021-0 Yes [id number] 5mL Take 5 mL Univers e-dextromet 5-10 by mouth ity of horphan 00:00: every 4 [place] 6.25-15 00 (four) Medical mg/5 mL hours as Branch syrup needed for Cough or Cold symptoms. diclofenac 2021-0 Yes [id number] 75mg Take 1 Univers 75 mg EC 5-09 tablet by ity of tablet 00:00: mouth 2 [place] (two) Medical times Branch daily with meals. diclofenac 2021-0 Yes [id number] 75mg Take 1 Univers 75 mg EC 5-09 tablet by ity of tablet 00:00: mouth 2 [place] (two) Medical times Branch daily with meals. diclofenac 2021-0 Yes [id number] 75mg Take 1 Univers 75 mg EC 5-09 tablet by ity of tablet 00:00: mouth 2 [place] 00 (two) Medical times Branch daily with meals. gabapentin 2021-0 Yes 300mg Take 300 Un rory 300 mg 3-14 mg by ity of capsule 00:00: mouth 3 [place] (three) Medical times Branch daily. gabapentin 2022-0 Yes 300mg Take 300 Un rory 300 mg 3-14 mg by ity of capsule 00:00: mouth 3 [place] (three) Medical times Branch daily. gabapentin 2022-0 Yes 300mg Take 300 Un rory 300 mg 3-14 mg by ity of capsule 00:00: mouth 3 [place] (three) Medical times Branch daily. naproxen 2022-0 Yes [id number] 500mg Take 1 Univers 500 mg 2-08 [id number] tablet by ity of tablet 00:00: mouth 2 00 (two) Medical times Branch daily as needed for Pain (scale 4-6). naproxen 0 Yes [id number] 500mg Take 1 Univers 500 mg 2-08 [id number] tablet by ity of tablet 00:00: mouth 2 00 (two) Medical times Branch daily as needed for Pain (scale 4-6). naproxen Yes [id number] 500mg Take 1 Univers 500 mg 2-08 [id number] tablet by ity of tablet 00:00: mouth 2 00 (two) Medical times Branch daily as needed for Pain (scale 4-6). bimatoprost 2020-09 Yes Univer s 0.03 % 1-08 ity of ophthalmic 00:00: [place] solution 00 Medical Branch bimatoprost 2020-09 Yes Univer s 0.03 % 1-08 ity of ophthalmic 00:00: [place] solution Medical Branch bimatoprost 2020-09 Yes Univer s 0.03 % 1-08 ity of ophthalmic 00:00: [place] solution 00 Medical Branch norethindro 2020-09 Yes [id number] 1{tbl} Take 1 Univers ne-e.estrad 1-01 tablet by ity of ioL-iron 00:00: mouth [place] (LOESTRIN 00 daily. Medical FE .02/22) Branch 1.5 mg-30 mcg (21)/75 mg (7) per tablet norethindro 2020-09 Yes [id number] 1{tbl} Take 1 Univers ne-e.estrad 1-01 tablet by ity of ioL-iron 00:00: mouth [place] (LOESTRIN 00 daily. Medical FE 1.02/22) Branch 1.5 mg-30 mcg (21)/75 mg (7) per tablet norethindro 2020-09 Yes [id number] 1{tbl} Take 1 Univers ne-e.estrad 1-01 tablet by ity of ioL-iron 00:00: mouth [place] (LOESTRIN 00 daily. Medical FE 1.02/22) Branch 1.5 mg-30 mcg (21)/75 mg (7) per tablet mupirocin 2 2020-09 Yes [id number] Apply to Univers % ointment 0-12 area(s) 3 ity of 00:00: (three) [place] 00 times Medical daily. Branch mupirocin 2 2020- Yes [id number] Apply to Univers % ointment 0-12 area(s) 3 ity of 00:00: (three) [place] 00 times Medical daily. Branch mupirocin 2 2020- Yes [id number] Apply to Univers % ointment 0-12 area(s) 3 ity of 00:00: (three) [place] 00 times Medical daily. Branch Immunizations Ordered Filled Immunization Date Status Comments [facility] e Immunization Name Name SARS-COV-2 COVID-19 2021-06-24 Completed Unive rsity of PFIZER VACCINE 00:00:00 [facility] Influenza Virus 2021-06-24 Completed Universit y of Vaccine 00:00:00 [facility] SARS-COV-2 COVID-19 2021-06-24 Completed Unive rsity of PFIZER VACCINE 00:00:00 [facility] Influenza Virus 2021-06-24 Completed Universit y of Vaccine 00:00:00 [facility] SARS-COV-2 COVID-19 2021-06-24 Completed Unive rsity of PFIZER VACCINE 00:00:00 [facility] Influenza Virus 2021-06-24 Completed Universit y of Vaccine 00:00:00 [facility] SARS-COV-2 COVID-19 2020-10-08 Completed Unive rsity of PFIZER VACCINE 00:00:00 [facility] SARS-COV-2 COVID-19 2020-10-08 Completed Unive rsity of PFIZER VACCINE 00:00:00 [facility] SARS-COV-2 COVID-19 2020-10-08 Completed Unive rsity of PFIZER VACCINE 00:00:00 [facility] SARS-COV-2 COVID-19 2020-09-17 Completed Unive rsity of PFIZER VACCINE 00:00:00 [facility] SARS-COV-2 COVID-19 2020-09-17 Completed Unive rsity of PFIZER VACCINE 00:00:00 [facility] SARS-COV-2 COVID-19 2020-09-17 Completed Unive rsity of PFIZER VACCINE 00:00:00 [facility] Vital Signs Vital Name Observation Time Observation Value Comments Source Systolic blood 2022-03-22 14:54:00 118 mm[Hg] Univer sity of pressure [facility] Diastolic blood 2022-03-22 14:54:00 76 mm[Hg] Unive rsity of pressure [facility] Heart rate 2022-03-22 14:54:00 57 /min [facility] Respiratory rate 2022-03-22 14:54:00 16 /min Univ ersity of [facility] Body height 2022-03-22 14:54:00 152.4 cm [facility] Body weight 2022-03-22 14:54:00 64.864 kg [facility] BMI 2022-03-22 14:54:00 27.93 kg/m2 [facility] Oxygen saturation in 2022-03-22 14:54:00 99 /min [facility] Arterial blood by [facility] Pulse oximetry Branch Procedures This patient has no known procedures. Encounters Start End Encounter Admission Attending Care Care Encounter Source Date/Time Date/Time Type Type Clinicians Facility Department ID 2022-06-01 2022-06-01 Outpatient R GARCIA, [facility] [id number] Univers 08:30:00 08:30:00 [facility] [id number] [facility]22-[facility]-01 2022-04-01 Letter Provider, [facility] [id number] Univers 00:00:00 00:00:00 (Out) Ang Db [facility] [id number] it y of Urgent Care [place] [id number] [place] YARON?BLEA [id number] Nd ruby [address] MEDICAL OFFICE BUILDING 2022-03-31 2022-03-31 Outpatient R KRISTA, [facility] [id number] Univers 12:15:00 12:34:43 ANDIE ity o f [facility] 2022-03-31 2022-03-31 Laboratory Only, Ang Db Test [facility] [id number] Univers 12:15:00 12:30:00 Only Unknown, Attending HEALTH [id number] ity [facility] [id number] [place] as YARON?BLEA [id number] Nd ruby [facility] [address] MEDICAL OFFICE BUILDING 2022-03-31 2022-03-31 Outpatient R [facility] [id number] Univers 12:15:00 12:15:00 [id number] [facility] 2022-03-30 2022-03-30 [id number] [facility] 16:30:00 16:30:00 TREY [facility] 2022-03-22 2022-03-22 Office [facility] [id number] [facility] 09:15:00 10:13:27 Visit Trey SLATER [id number] i ty of JIM [id number] Bashir BAILEY [id number] Nd ruby [facility] Branch [facility] Results This patient has no known results.
--- NOTE | 2022-05-14 11:55 | RAD REPORT ---
EXAM DESCRIPTION: RAD - Chest Single View - 05/14/2022 11:48 am CLINICAL HISTORY: CHEST PAIN COMPARISON: Chest Single View dated 08/04/2019; CHEST PA AND LAT 2 VIEW dated 04/10/2010 FINDINGS: Lines: None. Lungs: No evidence of edema or pneumonia. Pleural: No significant pleural effusions or pneumothorax. Cardiac: The heart size is within normal limits. Bones: No acute fractures. Other: IMPRESSION: No acute cardiopulmonary disease.
[2022-05-14 12:11] LABS: Hematocrit 39.3 % (36.0-45.0); Lymphocytes % 33.4 % (15.3-44.8); MCV 89.8 fL (80-100); MPV 9.1 fL (7.6-11.3); RBC Red Blood Cell Count 4.38 M/uL (3.86-4.86)
[2022-05-14 12:20] LABS: Protime INR 1.02
[2022-05-14 12:36] LABS: Albumin 4.1 g/dL (3.4-5.0); Bilirubin Direct 0.1 mg/dL (0-0.2); Bilirubin Total 0.5 mg/dL (0.2-1.0); Magnesium 2.3 mg/dL (1.8-2.4); Potassium 3.7 mmol/L (3.5-5.1)
--- NOTE | 2022-05-14 12:49 | RAD REPORT ---
EXAM DESCRIPTION: CT - Head Brain Wo Cont - 05/14/2022 12:37 pm CLINICAL HISTORY: Left arm numbness COMPARISON: 2019 TECHNIQUE: Computed axial tomography of the head was obtained. IV contrast was not requested. All CT scans are performed using dose optimization technique as appropriate and may include automated exposure control or mA/KV adjustment according to patient size. FINDINGS: An intracranial bleed is not seen . The ventricles are normal in caliber. No extra-axial fluid collection is noted. No significant hypodensity within the brain Fluid within the sinuses/ mastoids is not seen. IMPRESSION: No acute intracranial abnormality is seen. If patient's symptoms persist MRI of the bra in would be recommended.
[2022-05-14] MEDS ORDERED: MORPHINE 2 MG/ML SYR ONE (12:54)
[2022-05-14] MEDS ORDERED: ONDANSETRON 4 MG/2 ML VIAL ONE (12:55)
[2022-05-14 13:04] LABS: Urine Blood Negative (Negative); Urine Glucose Negative (Negative); Urine Protein Negative (Negative); Urine Specific Gravity >=1.030 (1.005-1.030)
--- NOTE | 2022-05-14 16:10 | EDPHYS ---
Physician Documentation [facility] Name: Tessa Vogel Age: 51 yrs Sex: Female : 1970 Arrival Date: 05/14/2022 Time: 10:56 Bed 2 Private MD: ED Physician Brandon Adames HPI: 05/14 11:30 This 51 yrs old Female presents to ER via Ambulatory with complaints of Chest cp Pain, Numbness Of Arm - left tingling. 11:30 The patient or guardian reports chest pain that is located primarily in the anterior cp chest wall, left. 11:30 Onset: 2 week(s) ago. cp 11:30 The pain radiates to left neck, left back. Associated signs and symptoms: Pertinent cp positives: left arm tingling, Pertinent negatives: cough, dizziness, lower extremity pain, lower extremity swelling, recent travel, shortness of breath. The chest pain is described as sharp. Duration: The patient or guardian reports multiple episodes, that are intermittent. 11:30 Severity of pain: in the emergency department the pain is unchanged despite home cp interventions. 11:30 Patient admits to increased stress at home and is tearful during interview. 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 - Social history:: Smoking status: Patient/guardian denies using tobacco products. ROS: 11:35 Constitutional: Negative for body aches, chills, fever, poor PO intake. cp 11:35 Cardiovascular: Positive for chest pain, Negative for edema, palpitations. cp Exam: 11:40 Constitutional: The patient appears in no acute distress, alert, awake, cp non-diaphoretic, non-toxic, well developed, well nourished, tearful 11:40 Head/Face: Normocephalic, atraumatic. cp 11:40 Eyes: Periorbital structures: appear normal, Conjunctiva: normal, no exudate, no injection, Sclera: no appreciated abnormality, Lids and lashes: appear normal, bilaterally. 11:40 ENT: External ear(s): are unremarkable, Nose: is normal, Mouth: Lips: moist, Oral mucosa: pink and intact, moist, Posterior pharynx: Airway: no evidence of obstruction, patent. 11:40 Neck: ROM/movement: is normal, is supple, no meningismus, no nuchal rigidity. 11:40 Chest/axilla: Inspection: normal, Palpation: crepitus, is not appreciated, tenderness, that is mild, of the anterior aspect of left upper chest. 11:40 Cardiovascular: Rate: normal, Rhythm: regular, Edema: is not appreciated, JVD: is not appreciated. 11:40 Respiratory: the patient does not display signs of respiratory distress, Respirations: normal, no use of accessory muscles, no retractions, labored breathing, is not present, Breath sounds: are clear throughout, no decreased breath sounds, no stridor, no wheezing. 11:40 Abdomen/GI: Inspection: abdomen appears normal, Palpation: abdomen is soft and non-tender, in all quadrants. 11:40 Back: pain, that is mild, of the left trapezius and left scapular area, ROM is normal, cp vertebral tenderness, is not appreciated. 11:40 Skin: cellulitis, is not appreciated, no rash present. cp 11:40 Neuro: Orientation: to person, place \T\ time. Mentation: is normal, Cerebellar function: is grossly normal, Motor: moves all fours, strength is normal, Sensation: tingling, that is moderate, of the left arm. 12:10 ECG was reviewed by the Attending Physician. cp 15:20 ECG was reviewed by the Attending Physician. cp Vital Signs: 11:02 BP 149 / 90; Pulse 80; Resp 16; Temp 97.1(TE); Pulse Ox 100% on R/A; Weight 64.41 kg bm7 (R); Height 5 ft. 0 in. (152.40 cm); Pain 4/10; 12:45 BP 149 / 85; Pulse 67; Resp 17; Pulse Ox 100% on R/A; em6 13:00 BP 157 / 86; Pulse 65; Resp 17; Pulse Ox 100% on R/A; em6 13:45 BP 126 / 76; Pulse 64; Resp 15; Pulse Ox 98% on R/A; em6 14:45 BP 116 / 73; Pulse 62; Resp 18; Pulse Ox 97% on R/A; em6 15:45 BP 120 / 75; Pulse 63; Resp 19; Pulse Ox 96% on R/A; em6 11:02 Body Mass Index 27.73 (64.41 kg, 152.40 cm) bm7 MDM: 11:16 Patient medically screened. [facility] 16:08 Data reviewed: vital signs, nurses notes, lab test result(s), EKG, radiologic studies, cp plain films. 16:08 Differential diagnosis: acute myocardial infarction, acute pericarditis, anxiety, chest cp wall pain, pleurisy, pneumonia, pneumothorax, pulmonary embolus, stable angina, thoracic aortic disection, unstable angina. Test interpretation: by ED physician or midlevel provider: ECG, plain radiologic studies. 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 Response to treatment: the patient's symptoms have markedly improved after treatment, and as a result, I will discharge patient. Special discussion: Based on the patient's history, exam, and Dx evaluation, there is no indication for emergent intervention or inpatient Tx. It is understood by the patient/guardian that if the Sx's persist or worsen they need to return immediately for re-evaluation. 05/14 11:26 Order name: Basic Metabolic Panel; Complete Time: 12:39 cp 05/14 12:39 Interpretation: Normal except: CL 111; GLUC 112. cp 05/14 11:26 Order name: CBC with Diff; Complete Time: 12:25 cp 05/14 11:26 Order name: D-Dimer; Complete Time: 12:25 cp 05/14 11:26 Order name: LFT's; Complete Time: 12:39 cp 05/14 11:26 Order name: Magnesium; Complete Time: 12:39 cp 05/14 11:26 Order name: NT PRO-BNP; Complete Time: 12:39 cp 05/14 11:26 Order name: PT-INR; Complete Time: 12:25 cp 05/14 11:26 Order name: Troponin HS; Complete Time: 12:39 cp 05/14 12:39 Interpretation: Troponin HS 3.0; Reviewed. 05/14 11:26 Order name: XRAY Chest (1 view); Complete Time: 12:25 cp 05/14 12:26 Order name: CT Head Brain wo Cont; Complete Time: 13:15 cp 05/14 13:15 Interpretation: Report reviewed. 05/14 13:03 Order name: Urine --Ancillary (enter results); Complete Time: 13:15 eb 05/14 13:04 Order name: Urine Dipstick-Ancillary; Complete Time: 13:15 EDMS 05/14 14:16 Order name: Troponin High Sensitivity: repeat 1445; Complete Time: 15:59 cp 05/14 15:59 Interpretation: Reviewed. 05/14 11:26 Order name: EKG; Complete Time: 11:28 cp 05/14 11:26 Order name: Cardiac monitoring; Complete Time: 12:14 cp 05/14 11:26 Order name: EKG - Nurse/Tech; Complete Time: 12:14 cp 05/14 11:26 Order name: IV Saline Lock; Complete Time: 12:15 cp 05/14 11:26 Order name: Labs collected and sent; Complete Time: 12:15 cp 05/14 11:26 Order name: O2 Per Protocol; Complete Time: 12:15 cp 05/14 11:26 Order name: O2 Sat Monitoring; Complete Time: 12:15 cp 05/14 11:26 Order name: Urine Dipstick-Ancillary (obtain specimen); Complete Time: 13:05 cp 05/14 11:26 Order name: Urine Test (obtain specimen); Complete Time: 13:05 cp 05/14 14:16 Order name: EKG - Nurse/Tech: repeat 1445; Complete Time: 15:28 cp EC:10 Rate is 66 beats/min. Rhythm is regular. LA interval is normal. QRS interval is normal. cp QT interval is normal. T waves are Inverted in leads III, aVR. Interpreted by me. Reviewed by me. 15:20 Rate is 60 beats/min. Rhythm is regular. LA interval is normal. QRS interval is normal. cp QT interval is normal. T waves are Inverted in leads III, aVR. Interpreted by me. Reviewed by me. Administered Medications: 12:45 Drug: morphine 2 mg Route: IVP; Infused Over: 4 mins; Site: right antecubital; em6 13:00 Follow up: BP 157 / 86; Pulse 65 bpm; Resp 17 bpm; Pulse Ox 100% RA; Response: No em6 adverse reaction; RASS: Alert and Calm (0) 12:45 Drug: Zofran (Ondansetron) 4 mg Route: IVP; Site: right antecubital; em6 13:00 Follow up: Response: No adverse reaction em6 Disposition Summary: 05/14/22 16:09 Discharge Ordered Location: Home cp Problem: new cp Symptoms: have improved cp Condition: Stable cp Diagnosis - Chest pain, unspecified cp - Paresthesia of skin cp Followup: cp - With: Private Physician - When: 2 - 3 days - Reason: Recheck today's complaints Discharge Instructions: - Discharge Summary Sheet cp - Nonspecific Chest Pain, Adult cp - Paresthesia cp - Aspirin and Your Heart cp Forms: - Medication Reconciliation Form cp - Thank You Letter cp - Antibiotic Education cp - Prescription Opioid Use cp Prescriptions: - Diclofenac Sodium 75 mg Oral Tablet Sustained Release - take 1 tablet by ORAL route 2 times per day; 30 tablet; Refills: 0, Product cp Selection Permitted Signatures: Dispatcher [employer] EDBrandon Cabrales MD MD cha Page, Corey, PA PA cp McCarthy, Brittany, RN RN bm7 Geno Mancia RN RN em6
--- NOTE | 2022-05-14 16:10 | ER ---
Nurse's Notes [facility] Name: Tessa Vogel Age: 51 yrs Sex: Female : 1970 Arrival Date: 05/14/2022 Time: 10:56 Bed 2 Private MD: Diagnosis: Chest pain, unspecified;Paresthesia of skin Presentation: 05/14 11:02 Chief complaint: Patient states: I started having chest pain two weeks ago and my left bm7 arm started tingling. Coronavirus screen: At this time, the client does not indicate any symptoms associated with coronavirus-19. Ebola Screen: No symptoms or risks identified at this time. Initial Sepsis Screen: Does the patient meet any 2 criteria? No. Patient's initial sepsis screen is negative. Does the patient have a suspected source of infection? No. Patient's initial sepsis screen is negative. Risk Assessment: Do you want to hurt yourself or someone else? Patient reports no desire to harm self or others. Onset of symptoms was April 29, 2022. 11:02 Method Of Arrival: Ambulatory [facility] 11:02 Acuity: NATALIO 3 bm7 Triage Assessment: 11:04 General: Appears in no apparent distress. comfortable, Behavior is calm, cooperative, bm7 appropriate for age. Pain: Complains of pain in mid-sternal area Pain radiates to left arm Pain currently is 4 out of 10 on a pain scale. EENT: No deficits noted. No signs and/or symptoms were reported regarding the EENT system. Neuro: No deficits noted. Cardiovascular: Chest pain is described as mild, quality is squeezing, began 2 weeks ago. Respiratory: Denies cough, shortness of breath. GI: No deficits noted. No signs and/or symptoms were reported involving the gastrointestinal system. : No deficits noted. No signs and/or symptoms were reported regarding the genitourinary system. Derm: No deficits noted. No signs and/or symptoms reported regarding the dermatologic system. Musculoskeletal: No deficits noted. No signs and/or symptoms reported regarding the musculoskeletal system. 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 - Social history:: Smoking status: Patient/guardian denies using tobacco products. Screenin:10 Abuse screen: Denies threats or abuse. em6 11:10 Nutritional screening: No deficits noted. Tuberculosis screening: No symptoms or risk em6 factors identified. Fall Risk No fall in past 12 months (0 pts). No secondary diagnosis (0 pts). IV access (20 points). Ambulatory Aid- None/Bed Rest/Nurse Assist (0 pts). Gait- Normal/Bed Rest/Wheelchair (0 pts) Mental Status- Oriented to own ability (0 pts). Total Page Fall Scale indicates No Risk (0-24 pts). Assessment: 11:10 General: Appears in no apparent distress. comfortable, Behavior is calm, cooperative. em6 Pain: Complains of pain in chest Pain radiates to left arm Pain currently is 7 out of 10 on a pain scale. Quality of pain is described as radiating, tingling, Pain began 04/30/2022 Is continuous. Neuro: Smith Agitation-Sedation Scale (RASS): 0 - Alert and Calm Level of Consciousness is awake, alert, obeys commands, Oriented to person, place, time, situation, Moves all extremities. Reports. Cardiovascular: Reports chest pain, nausea, Heart tones present Capillary refill < 3 seconds Patient's skin is warm and dry. Rhythm is sinus rhythm Chest pain is described as mild, quality is pressure, radiates to left arm(s) jaw(s). Respiratory: Airway is patent Respiratory effort is even, unlabored, Respiratory pattern is regular, symmetrical, Breath sounds are clear bilaterally. GI: No signs and/or symptoms were reported involving the gastrointestinal system. : No signs and/or symptoms were reported regarding the genitourinary system. EENT: No signs and/or symptoms were reported regarding the EENT system. Derm: No signs and/or symptoms reported regarding the dermatologic system. Musculoskeletal: No signs and/or symptoms reported regarding the musculoskeletal system. Circulation, motion, and sensation intact. 12:10 Reassessment: Patient appears in no apparent distress at this time. Patient and/or em6 family updated on plan of care and expected duration. Pain level reassessed. 13:10 Reassessment: Patient appears in no apparent distress at this time. Patient and/or em6 family updated on plan of care and expected duration. Pain level reassessed. 14:41 Reassessment: Patient appears in no apparent distress at this time. No changes from em6 previously documented assessment. Patient and/or family updated on plan of care and expected duration. Pain level reassessed. Patient states symptoms have improved. 15:41 Reassessment: Patient appears in no apparent distress at this time. No changes from em6 previously documented assessment. Patient and/or family updated on plan of care and expected duration. Pain level reassessed. Vital Signs: 11:02 BP 149 / 90; Pulse 80; Resp 16; Temp 97.1(TE); Pulse Ox 100% on R/A; Weight 64.41 kg bm7 (R); Height 5 ft. 0 in. (152.40 cm); Pain 4/10; 12:45 BP 149 / 85; Pulse 67; Resp 17; Pulse Ox 100% on R/A; em6 13:00 BP 157 / 86; Pulse 65; Resp 17; Pulse Ox 100% on R/A; em6 13:45 BP 126 / 76; Pulse 64; Resp 15; Pulse Ox 98% on R/A; em6 14:45 BP 116 / 73; Pulse 62; Resp 18; Pulse Ox 97% on R/A; em6 15:45 BP 120 / 75; Pulse 63; Resp 19; Pulse Ox 96% on R/A; em6 11:02 Body Mass Index 27.73 (64.41 kg, 152.40 cm) bm7 ED Course: 10:56 Patient arrived in ED. am2 11:03 Triage completed. bm7 11:04 Arm band placed on right wrist. bm7 11:10 Brandon Herndon PA is PHCP. cp 11:10 Brandon Adames MD is Attending Physician. cp 11:10 Patient has correct armband on for positive identification. Placed in gown. Bed in low em6 position. Call light in reach. Side rails up X2. shelter monitor on. Pulse ox on. NIBP on. Warm blanket given. 11:10 Inserted saline lock: 22 gauge in right antecubital area, using aseptic technique. em6 Blood collected. 11:10 Patient maintains SpO2 saturation greater than 95% on room air. em6 11:50 XRAY Chest (1 view) In Process Unspecified. EDMS 12:38 CT Head Brain wo Cont In Process Unspecified. EDMS 15:28 Troponin High Sensitivity: repeat 1445 Sent. em6 16:27 No provider procedures requiring assistance completed. IV discontinued, intact, em6 bleeding controlled, No redness/swelling at site. Pressure dressing applied. Administered Medications: 12:45 Drug: morphine 2 mg Route: IVP; Infused Over: 4 mins; Site: right antecubital; em6 13:00 Follow up: BP 157 / 86; Pulse 65 bpm; Resp 17 bpm; Pulse Ox 100% RA; Response: No em6 adverse reaction; RASS: Alert and Calm (0) 12:45 Drug: Zofran (Ondansetron) 4 mg Route: IVP; Site: right antecubital; em6 13:00 Follow up: Response: No adverse reaction em6 Medication: 11:10 VIS not applicable for this client. em6 Outcome: 16:09 Discharge ordered by . cp 16:27 Discharged to home ambulatory, with significant other. em6 16:27 Condition: stable 16:27 Discharge instructions given to patient, family, Instructed on discharge instructions, follow up and referral plans. medication usage, Demonstrated understanding of instructions, follow-up care, medications, Prescriptions given X 1. 16:29 Patient left the ED. em6 Signatures: Dispatcher [employer] EDMS Brandon Herndon PA PA cp Moreno, Amanda am2 Elizabeth Plascencia, RN RN bm7 Geno Mancia RN RN em6
[2022-05-14 16:48] VITALS: TEMP 97.1
[2022-05-14 17:00] VITALS: BP 120/75; O2SAT 96
--- NOTE | 2022-05-15 08:56 | EKG ---
Test Date: 2022-05-14 Test Time: 15:15:53 Credit Reporting Clerk: EM MEASUREMENT RESULTS: Intervals: Rate: 60 MN: 194 QRSD: 76 QT: 454 QTc: 454 [place]: P: 65 MN: 194 QRS: 30 T: -3 INTERPRETIVE STATEMENTS: Normal sinus rhythm Nonspecific T wave abnormality Abnormal ECG Compared to ECG 08/04/2019 16:28:10 T-wave abnormality now present Electronically Signed On 05-15-22 08:55:49 CDT by Manny Gonzalez
--- NOTE | 2022-05-17 08:15 | EKG ---
Test Date: 2022-05-14 Test Time: 12:04:14 Manufacturer Representative: EM MEASUREMENT RESULTS: Intervals: Rate: 66 CT: 188 QRSD: 76 QT: 424 QTc: 444 [place]: P: 53 CT: 188 QRS: 12 T: 5 INTERPRETIVE STATEMENTS: Normal sinus rhythm Nonspecific T wave abnormality Abnormal ECG Compared to ECG 08/04/2019 16:28:10 T-wave abnormality now present Electronically Signed On 05-17-22 08:07:12 CDT by Manny Gonzalez
== END 2022-05-14 16:29 | disposition home or self-care (01) ==
LOC: ER 10:55
DX: R07.89 Other chest pain (principal); R20.2 Paresthesia of skin; Z88.0 Allergy status to penicillin; Z88.5 Allergy status to narcotic agent; Z88.8 Allergy status to other drugs, medicaments and biological substances
CPT/HCPCS: 93005; 85025; 80048; 36415; 83735; 81025; 85610; 85379; 80076; 81003; 84484 ×2; 83880; 70450; 71045; 96375; 96374; 99285; J2270; J2405

== ENCOUNTER 2022-09-16 11:07 | Emergency (ER) | payer BC ==
--- OUTSIDE RECORDS SUMMARY | 2022-09-16 11:19 | XMS REPORT | Continuity of Care Document ---
:1970 Author Organization [facility] t Address [address] [place] [address] Care Team Providers Name Role Phone Missy Ortiz Primary Care Physician MISSY TEMPLETON Attending Clinician Unavailable Cameron Rojas MD Attending Clinician CAMERON ROJAS Attending Clinician Unavailable MIGUEL ALMARAZ Attending Clinician Unavailable Miguel Almaraz MD Attending Clinician Destiny Hahn MD Attending Clinician DESTINY HAHN Attending Clinician Unavailable SANTOS ESTEVEZ Attending Clinician Unavailable Doctor Unassigned, [place] Attending Clinician Unavailable Santos Estevez MD Attending Clinician Missy Ortiz Attending Clinician Domenic Webster MD Attending Clinician 2, [facility] Attending Clinician Unavailable Lab, Ang - Db Attending Clinician Unavailable DOMENIC WEBSTER Attending Clinician Unavailable ELI HOFFMANN Attending Clinician Unavailable Eli Hoffmann MD Attending Clinician Unknown, Attending Attending Clinician Unavailable Zeyad BOYCE, Zak Smith Attending Clinician Unavailable Provider, [facility] Attending Clinician Unavailable ANDIE VELASCO Attending Clinician Unavailable Only, [facility] Test Attending Clinician Unavailable OPAL FERNANDEZ Attending Clinician Unavailable Opal Fernandez MD Attending Clinician WENDY PEREZ Attending Clinician Unavailable Sarah BERNAL, Wendy Attending Clinician Charlie MANAGER ONCOLOGY, [place] Attending Clinician ELMIRA RODGERS Attending Clinician Unavailable Ebrahim MANAGER ONCOLOGY, Rania Attending Clinician KEDAR BECKMAN Attending Clinician Unavailable Kedar Beckman MD Attending Clinician FABRIZIO PADILLA Attending Clinician Unavailable FABRIZIO PADILLA Attending Clinician Unavailable Fabrizio Padilla MD Attending Clinician KATHRYN FERNANDO Attending Clinician Unavailable IRINA BROWN Attending Clinician Unavailable Irina Brown MD Attending Clinician DANIEL PATRICIO Attending Clinician Unavailable YARA MORRISON Attending Clinician Unavailable Only, [facility] Test Attending Clinician Unavailable SONYA BOND Attending Clinician Unavailable Meseret Fraire MD Attending Clinician Gramm MANAGER ONCOLOGY, Lucy A Attending Clinician MESERET FRAIRE Attending Clinician Unavailable Nurse, [facility] Pob Immunization Attending Clinician Unavailable Donato Cadena DO Attending Clinician DONATO CADENA Attending Clinician Unavailable Visit, [facility] Nurse Attending Clinician Unavailable Ayla Hall MD K.HLuis A Attending Clinician AYLA HALL K.HLuis A Attending Clinician Unavailable Pob, [facility] Main Attending Clinician Unavailable Justyna Garrido PA-C Attending Clinician JUSTYNA GARRIDO Attending Clinician Unavailable Lab, [facility] Pob I Attending Clinician Unavailable Sonya Jo Attending Clinician Vickie BOYCE, Radha Attending Clinician Unavailable Hayden Dorado DO Attending Clinician Nurse, [facility] Care Attending Clinician Unavailable Sloan Ivy MD Attending Clinician SLOAN IVY Attending Clinician Unavailable Gabriela Collier MD Attending Clinician GABRIELA COLLIER Attending Clinician Unavailable Seymour Tristan MD Attending Clinician [facility], [facility] Heart Attending Clinician Unavailable SANTOS ESTEVEZ Admitting Clinician Unavailable FABRIZIO PADILLA Admitting Clinician Unavailable OPAL FERNANDEZ Admitting Clinician Unavailable Opal Fernandez MD Admitting Clinician Payers Payer Name Policy Type Policy Number Effective Date Expiration Date S monisha [facility] [id number] 2017 EMPLOYEE PLAN 00:00:00 Problems Condition Condition Condition Status Onset Resolution Last Treating Co mments Source Name Details Category Date Date Treatment Clinician Date Pain Pain Disease Active Univers involving involving 3-14 [place] fingers [place] 00 Me dical both hands both hands Br anch Neuropathy Neuropathy Disease Active U nivers 3-14 ity of 00:00: [place] 00 Medical Branch Gastroesop Gastroesop Disease Active 2020-09 Overview : Univers hageal hageal 2-03 Formattin ity of reflux reflux 00:00: g of this [place] disease, disease, 00 note Medica l unspecifie unspecifie might be Branch d whether d whether different esophagiti esophagiti from the s present s present original. Added automatic ally from request for surgery [id number] Chronic Chronic Disease Active 2020-09 Univers abdominal abdominal 0-17 ity of pain pain 00:00: Medical Branch Tremor of Tremor of Disease Active 2020-09 Uni vers left hand left hand 0-17 ity of 00:00: [place] 00 Medical Branch Breast Breast Disease Active Univers cancer cancer 8-25 it[place] of screening screening [place] Rectal Rectal Disease Active Univers bleeding bleeding 8-25 ity of 00:00: Medical Branch Family Family Disease Active Univers history of history of 8-25 it y of cancer cancer 00:00: 00 Medical Branch Allergies, Adverse Reactions, Alerts Allergy Allergy Status Severity Reaction(s) Onset Inactive Treating Comm ents Source Name Type Date Date Clinician HYDROXYZ DRUG Active Rash Univers INE INGREDI 1-14 ity of 00:00: [place] 00 Medical Branch Hydroxyz Propensi Active Rash 0 Univer s ine ty to 1-14 ity of adverse 00:00: [place] reaction 00 Medical s Branch Iodine Propensi Active Anaphylaxis 0 Uni vers And ty to 602 ity of Iodide adverse 00:00: [place] Containi reaction 00 Medica l ng s Branch Products IODINE Drug Active Anaphylaxis 0 Unive rs AND Class 6 ity of IODIDE 00:00: [place] CONTAINI 00 Medical NG Branch PRODUCTS Penicill Propensi Active Rash 2017-0 Univer s in ty to 04-27 ity of adverse 00:00: [place] reaction 00 Medical s Branch CODEINE DRUG Active N/V 2017- Univers INGREDI 04-27 ity of 00:00: [place] 00 Medical Branch PHENYTOI DRUG Active Rash 0 Univers N INGREDI 04-27 ity of 00:00: [place] 00 Medical Branch PENICILL DRUG Active Rash Univers IN INGREDI 04-27 ity of 00:00: [place] 00 Medical Branch Codeine Propensi Active Nausea 2017-0 Univers ty to and/or 04-27 ity of adverse Vomiting 00:00: [place] reaction 00 Medical s Branch Phenytoi Propensi Active Rash 0 Univer s n ty to 04-27 ity of adverse 00:00: [place] reaction 00 Medical s Branch Social History Social Habit Start Date Stop Date Quantity Comments Source History of Passive smoker University of tobacco use [place] [facility] History [facility] o f Alcohol Frequency [facility] edical Branch History [facility] o f Alcohol Std [place] [facility] Drinks Branch History [facility] University o f Alcohol Binge [place] [facility] al Branch Alcohol intake 2022-09-15 2022-09-15 Current drinker Unive rsity of 00:00:00 00:00:00 of alcohol [place] [facility] (finding) Branch Exposure to 2022-09-04 2022-09-14 Not sure University of SARS-CoV-2 00:00:00 16:35:00 [facility] [place] [facility] (event) Branch Tobacco use and 2022-07-23 2022-07-23 Smokeless tobacco Un iversity of exposure 00:00:00 00:00:00 non-user [facility] Alcohol Comment 2022-07-23 2022-07-23 every weekend Univer sity of 00:00:00 00:00:00 [place] [facility] [birth year] Universit y of 00:00:00 00:00:00 [facility] Smoking Status Start Date Stop Date Source Never smoked tobacco [facility] Medications Ordered Filled Start Stop Current Ordering Indication Dosage Frequency Signature Comments Components Source Medication Medication Date Date Medication? Clinician (SIG) Name Name stephy 2021-09 Yes [id number] 3{tbl} Take 3 Univers r-ritonavir 2-22 tablets by it y of (PAXLOVID, 00:00: mouth in [place] EUA,) 300 00 the Medical mg (150 mg morning Branch x 2)-100 mg and 3 tablet tablets in the evening. azithromyci 2021-09 Yes [id number] 250mg Take 1 Univers n 250 mg 2-21 tablet by ity of tablet 00:00: mouth in [place] 00 the Medical morning. Branch Take 500 mg day 1, then 250 mg days 2 to 5. ondansetron 2021-09 Yes [id number] 4mg Take 1 Univers 4 mg 2-21 tablet by ity of disintegrat 00:00: mouth [place] ing tablet 00 every 8 Medica l (eight) Branch hours as needed for Nausea and Vomiting (N/V). bromphenira 2021-09 Yes [id number] 5mL Take 5 mL Univers mine-pseudo 2-21 by mouth 3 it y of ephedrine-D 00:00: (three) [place] M (BROMFED 00 times Medical DM) 2-30-10 daily as Bran ch mg/5 mL needed for syrup Congestion /Allergies or Cold symptoms. azithromyci 2021-09 Yes [id number] 250mg Take 1 Univers n 250 mg 2-21 tablet by ity of tablet 00:00: mouth in [place] 00 the Medical morning. Branch Take 500 mg day 1, then 250 mg days 2 to 5. ondansetron 2021-09 Yes [id number] 4mg Take 1 Univers 4 mg 2-21 tablet by ity of disintegrat 00:00: mouth [place] ing tablet 00 every 8 Medica l (eight) Branch hours as needed for Nausea and Vomiting (N/V). bromphenira 2021-09 Yes [id number] 5mL Take 5 mL Univers mine-pseudo 2-21 by mouth 3 it y of ephedrine-D 00:00: (three) [place] (BROMFED 00 times Medical DM) 2-30-10 daily as Bran ch mg/5 mL needed for syrup Congestion /Allergies or Cold symptoms. azithromyci 2021-09 Yes [id number] 250mg Take 1 Univers n 250 mg 2-21 tablet by ity of tablet 00:00: mouth in [place] 00 the Medical morning. Branch Take 500 mg day 1, then 250 mg days 2 to 5. ondansetron 2021-09 Yes [id number] 4mg Take 1 Univers 4 mg 2-21 tablet by ity of disintegrat 00:00: mouth [place] ing tablet 00 every 8 Medica l (eight) Branch hours as needed for Nausea and Vomiting (N/V). bromphenira 2021-09 Yes [id number] 5mL Take 5 mL Univers mine-pseudo 2-21 by mouth 3 it y of ephedrine-D 00:00: (three) [place] (BROMFED 00 times Medical DM) 2-30-10 daily as Bran ch mg/5 mL needed for syrup Congestion /Allergies or Cold symptoms. azithromyci 2021-09 Yes [id number] 250mg Take 1 Univers n 250 mg 2-21 tablet by ity of tablet 00:00: mouth in [place] 00 the Medical morning. Branch Take 500 mg day 1, then 250 mg days 2 to 5. ondansetron 2021-09 Yes [id number] 4mg Take 1 Univers 4 mg 2-21 tablet by ity of disintegrat 00:00: mouth [place] ing tablet 00 every 8 Medica l (eight) Branch hours as needed for Nausea and Vomiting (N/V). bromphenira 2021-09 Yes [id number] 5mL Take 5 mL Univers mine-pseudo 2-21 by mouth 3 it y of ephedrine-D 00:00: (three) [place] (BROMFED 00 times Medical DM) 2-30-10 daily as Bran ch mg/5 mL needed for syrup Congestion /Allergies or Cold symptoms. azithromyci 2021-09 Yes [id number] 250mg Take 1 Univers n 250 mg 2-21 tablet by ity of tablet 00:00: mouth in [place] 00 the Medical morning. Branch Take 500 mg day 1, then 250 mg days 2 to 5. ondansetron 2021-09 Yes [id number] 4mg Take 1 Univers 4 mg 2-21 tablet by ity of disintegrat 00:00: mouth [place] ing tablet 00 every 8 Medica l (eight) Branch hours as needed for Nausea and Vomiting (N/V). bromphenira 2021-09 Yes [id number] 5mL Take 5 mL Univers mine-pseudo 2-21 by mouth 3 it y of ephedrine-D 00:00: (three) [place] (BROMFED 00 times Medical DM) 2-30-10 daily as Bran ch mg/5 mL needed for syrup Congestion /Allergies or Cold symptoms. phenylephri 2021-09 Yes [id number] 10mL Take 10 mL Univers ne-DM-guaif 2-21 by mouth 3 it y of enesin 00:00: (three) [place] (VANACOF 00 times Medical DM) daily as Branch 10-18-200 needed mg/15 mL (cough). Liqd azithromyci 2021-09 Yes [id number] 250mg Take 1 Univers n 250 mg 2-21 tablet by ity of tablet 00:00: mouth in [place] 00 the Medical morning. Branch Take 500 mg day 1, then 250 mg days 2 to 5. ondansetron 2021-09 Yes [id number] 4mg Take 1 Univers 4 mg 2-21 tablet by ity of disintegrat 00:00: mouth [place] ing tablet 00 every 8 Medica l (eight) Branch hours as needed for Nausea and Vomiting (N/V). bromphenira 2021-09 Yes [id number] 5mL Take 5 mL Univers mine-pseudo 2-21 by mouth 3 it y of ephedrine-D 00:00: (three) [place] (BROMFED 00 times Medical DM) 2-30-10 daily as Bran ch mg/5 mL needed for syrup Congestion /Allergies or Cold symptoms. phenylephri 2021-09 Yes [id number] 10mL Take 10 mL Univers ne-DM-guaif 2-21 by mouth 3 it y of enesin 00:00: (three) [place] (VANACOF 00 times Medical DM) daily as Branch 10-18-200 needed mg/15 mL (cough). Liqd azithromyci 2021-09- No [id number] 250mg Take 1 Univers n 250 mg 2-21 12-21 tablet by ity o f tablet 00:00: 00:00 mouth in [place] 00 :00 the Medical morning. Branch Take 500 mg day 1, then 250 mg days 2 to 5. ondansetron 2021-09- No [id number] 4mg Take 1 Univers 4 mg 2-21 12-21 tablet by ity of disintegrat 00:00: 00:00 [place] tablet 00 :00 every 8 Medica l (eight) Branch hours as needed for Nausea and Vomiting (N/V). azithromyci 2021-09- No [id number] 250mg Take 1 Univers n 250 mg 2-21 12-21 tablet by ity o f tablet 00:00: 00:00 mouth in [place] 00 :00 the Medical morning. Branch Take 500 mg day 1, then 250 mg days 2 to 5. ondansetron 2021-09- No [id number] 4mg Take 1 Univers 4 mg 2-21 12-21 tablet by ity of disintegrat 00:00: 00:00 [place] tablet 00 :00 every 8 Medica l (eight) Branch hours as needed for Nausea and Vomiting (N/V). azithromyci 2021-09- No [id number] 250mg Take 1 Univers n 250 mg 2-21 12-21 tablet by ity o f tablet 00:00: 00:00 mouth in [place] 00 :00 the Medical morning. Branch Take 500 mg day 1, then 250 mg days 2 to 5. ondansetron 2021-09- No [id number] 4mg Take 1 Univers 4 mg 2-21 12-21 tablet by ity of disintegrat 00:00: 00:00 [place] ing tablet 00 :00 every 8 Medica l (eight) Branch hours as needed for Nausea and Vomiting (N/V). terbinafine 2021-09 Yes [id number] Apply to Univers HCL 1 % 2-16 area(s) 2 ity of cream 00:00: (two) [place] 00 times Medical daily. Branch terbinafine 2021-09 Yes [id number] Apply to Univers HCL 1 % 2-16 area(s) 2 ity of cream 00:00: (two) [place] 00 times Medical daily. Branch terbinafine 2021-09 Yes [id number] Apply to Univers HCL 1 % 2-16 area(s) 2 ity of cream 00:00: (two) [place] 00 times Medical daily. Branch terbinafine 2021-09 Yes [id number] Apply to Univers HCL 1 % 2-16 area(s) 2 ity of cream 00:00: (two) [place] 00 times Medical daily. Branch terbinafine 2021-09 Yes [id number] Apply to Univers HCL 1 % 2-16 area(s) 2 ity of cream 00:00: (two) [place] 00 times Medical daily. Branch terbinafine 2021-09 Yes [id number] Apply to Univers HCL 1 % 2-16 area(s) 2 ity of cream 00:00: (two) [place] 00 times Medical daily. Branch terbinafine 2021-09 Yes [id number] Apply to Univers HCL 1 % 2-16 area(s) 2 ity of cream 00:00: (two) [place] 00 times Medical daily. Branch terbinafine 2021-09 Yes [id number] Apply to Univers HCL 1 % 2-16 area(s) 2 ity of cream 00:00: (two) [place] times Medical daily. Branch terbinafine 2021-09 Yes [id number] Apply to Univers HCL 1 % 2-16 area(s) 2 ity of cream 00:00: (two) [place] 00 times Medical daily. Branch terbinafine 2021-09 Yes [id number] Apply to Univers HCL 1 % 2-16 area(s) 2 ity of cream 00:00: (two) [place] 00 times Medical daily. Branch terbinafine 2021-09 Yes [id number] Apply to Univers HCL 1 % 2-16 area(s) 2 ity of cream 00:00: (two) [place] 00 times Medical daily. Branch Insulin 2021-09 Yes Use to Univers [place], 1-16 inject ity of Disposable, 00:00: Saxenda [place] (BD 00 daily. Medical ULTRAFINE Branch III MINI PEN) 31 gauge x 3/16" Ndle Insulin 2021-09 Yes Use to Univers [place], 1-16 inject ity of Disposable, 00:00: Saxenda [place] (BD 00 daily. Medical ULTRAFINE Branch III MINI PEN) 31 gauge x 3/16" Ndle Insulin 2021-09 Yes Use to Univers [place], 1-16 inject ity of Disposable, 00:00: Saxenda [place] (BD 00 daily. Medical ULTRAFINE Branch III MINI PEN) 31 gauge x 3/16" Ndle Insulin 2021-09 Yes Use to Univers [place], 1-16 inject ity of Disposable, 00:00: Saxenda [place] (BD 00 daily. Medical ULTRAFINE Branch III MINI PEN) 31 gauge x 3/16" Ndle Insulin 2021-09- No Use to Univers [place], 1-16 12-16 inject ity of Disposable, 00:00: 00:00 Saxenda [place] (BD 00 :00 daily. Medical ULTRAFINE Branch III MINI PEN) 31 gauge x 3/16" Ndle Insulin 2021-09- No Use to Univers [place], 1-16 12-16 inject ity of Disposable, 00:00: 00:00 Saxenda [place] (BD 00 :00 daily. Medical ULTRAFINE Branch III MINI PEN) 31 gauge x 3/16" Ndle Insulin 2021-09- No Use to Univers [place], 1-16 12-16 inject ity of Disposable, 00:00: 00:00 Saxenda [place] (BD 00 :00 daily. Medical ULTRAFINE Branch III MINI PEN) 31 gauge x 3/16" Ndle Insulin 2021-09- No Use to Univers [place], 1-16 12-16 inject ity of Disposable, 00:00: 00:00 Saxenda [place] (BD 00 :00 daily. Medical ULTRAFINE Branch III MINI PEN) 31 gauge x 3/16" Ndle liraglutide 2021-09 Yes [id number] 3mg inject 3 Univers , weight 1-15 mg under ity of loss, 00:00: the skin [place] (SAXENDA) 3 00 in the Medica l mg/0.5 mL morning. Branch (18 mg/3 Use as mL) PnIj directed, titrate as advised. Start taking Saxenda. Start off by taking 0.6 mg under the skin/Subcu taneous (SC) daily. After the first week, if tolerated (no abdominal issues), can increase to 1.2mg SC daily. After the second week, if tolerated, can increase to 1.8mg SC daily. After the third week, if tolerated, can increase to 2.4mg SC daily. After the fourth week, if tolerated, can increase to 3mg SC daily. Watch the link to see how to use the Saxenda https://Backand/about- saxenda/ho w-to-use-t he-pen.htm l If experienci ng severe abdominal pain along with nausea and/or vomiting please call clinic [facility] or or go to Emergency room if any of these symptoms occur. This could be sign of Pancreatit is. liraglutide 2021-09 Yes [id number] 3mg inject 3 Univers , weight 1-15 mg under ity of loss, 00:00: the skin [place] (SAXENDA) 3 00 in the Medica l mg/0.5 mL morning. Branch (18 mg/3 Use as mL) PnIj directed, titrate as advised. Start taking Saxenda. Start off by taking 0.6 mg under the skin/Subcu taneous (SC) daily. After the first week, if tolerated (no abdominal issues), can increase to 1.2mg SC daily. After the second week, if tolerated, can increase to 1.8mg SC daily. After the third week, if tolerated, can increase to 2.4mg SC daily. After the fourth week, if tolerated, can increase to 3mg SC daily. Watch the link to see how to use the Saxenda https://Backand/about- saxenda/ho w-to-use-t he-pen.htm l If experienci ng severe abdominal pain along with nausea and/or vomiting please call clinic [facility] or or go to Emergency room if any of these symptoms occur. This could be sign of Pancreatit is. liraglutide 2021-09 Yes [id number] 3mg inject 3 Univers , weight 1-15 mg under ity of loss, 00:00: the skin [place] (SAXENDA) 3 00 in the Medica l mg/0.5 mL morning. Branch (18 mg/3 Use as mL) PnIj directed, titrate as advised. Start taking Saxenda. Start off by taking 0.6 mg under the skin/Subcu taneous (SC) daily. After the first week, if tolerated (no abdominal issues), can increase to 1.2mg SC daily. After the second week, if tolerated, can increase to 1.8mg SC daily. After the third week, if tolerated, can increase to 2.4mg SC daily. After the fourth week, if tolerated, can increase to 3mg SC daily. Watch the link to see how to use the Saxenda https://Backand/about- saxenda/ho w-to-use-t he-pen.htm l If experienci ng severe abdominal pain along with nausea and/or vomiting please call clinic [facility] or or go to Emergency room if any of these symptoms occur. This could be sign of Pancreatit is. liraglutide 2021-09 Yes [id number] 3mg inject 3 Univers , weight 1-15 mg under ity of loss, 00:00: the skin [place] (SAXENDA) 3 00 in the Medica l mg/0.5 mL morning. Branch (18 mg/3 Use as mL) PnIj directed, titrate as advised. Start taking Saxenda. Start off by taking 0.6 mg under the skin/Subcu taneous (SC) daily. After the first week, if tolerated (no abdominal issues), can increase to 1.2mg SC daily. After the second week, if tolerated, can increase to 1.8mg SC daily. After the third week, if tolerated, can increase to 2.4mg SC daily. After the fourth week, if tolerated, can increase to 3mg SC daily. Watch the link to see how to use the Saxenda https://Backand/about- eKonnekt/ho w-to-use-t he-pen.htm l If experienci ng severe abdominal pain along with nausea and/or vomiting please call clinic [facility] or or go to Emergency room if any of these symptoms occur. This could be sign of Pancreatit is. liraglutide 2021-09 Yes [id number] 3mg inject 3 Univers , weight 1-15 mg under ity of loss, 00:00: the skin [place] (SAXENDA) 3 00 in the Medica l mg/0.5 mL morning. Branch (18 mg/3 Use as mL) PnIj directed, titrate as advised. Start taking Saxenda. Start off by taking 0.6 mg under the skin/Subcu taneous (SC) daily. After the first week, if tolerated (no abdominal issues), can increase to 1.2mg SC daily. After the second week, if tolerated, can increase to 1.8mg SC daily. After the third week, if tolerated, can increase to 2.4mg SC daily. After the fourth week, if tolerated, can increase to 3mg SC daily. Watch the link to see how to use the Saxenda https://Backand/about- saxenda/ho w-to-use-t he-pen.htm l If experienci ng severe abdominal pain along with nausea and/or vomiting please call clinic [facility] or or go to Emergency room if any of these symptoms occur. This could be sign of Pancreatit is. liraglutide 2021-09 Yes [id number] 3mg inject 3 Univers , weight 1-15 mg under ity of loss, 00:00: the skin [place] (SAXENDA) 3 00 in the Medica l mg/0.5 mL morning. Branch (18 mg/3 Use as mL) PnIj directed, titrate as advised. Start taking Saxenda. Start off by taking 0.6 mg under the skin/Subcu taneous (SC) daily. After the first week, if tolerated (no abdominal issues), can increase to 1.2mg SC daily. After the second week, if tolerated, can increase to 1.8mg SC daily. After the third week, if tolerated, can increase to 2.4mg SC daily. After the fourth week, if tolerated, can increase to 3mg SC daily. Watch the link to see how to use the Saxenda https://Backand/about- saxenda/ho w-to-use-t he-pen.htm l If experienci ng severe abdominal pain along with nausea and/or vomiting please call clinic [facility] or or go to Emergency room if any of these symptoms occur. This could be sign of Pancreatit is. liraglutide 2021-09 Yes [id number] 3mg inject 3 Univers , weight 1-15 mg under ity of loss, 00:00: the skin [place] (SAXENDA) 3 00 in the Medica l mg/0.5 mL morning. Branch (18 mg/3 Use as mL) PnIj directed, titrate as advised. Start taking Saxenda. Start off by taking 0.6 mg under the skin/Subcu taneous (SC) daily. After the first week, if tolerated (no abdominal issues), can increase to 1.2mg SC daily. After the second week, if tolerated, can increase to 1.8mg SC daily. After the third week, if tolerated, can increase to 2.4mg SC daily. After the fourth week, if tolerated, can increase to 3mg SC daily. Watch the link to see how to use the Saxenda https://Backand/about- saxenda/ho w-to-use-t he-pen.htm l If experienci ng severe abdominal pain along with nausea and/or vomiting please call clinic [facility] or or go to Emergency room if any of these symptoms occur. This could be sign of Pancreatit is. liraglutide 2021-09 Yes [id number] 3mg inject 3 Univers , weight 1-15 mg under ity of loss, 00:00: the skin [place] (SAXENDA) 3 00 in the Medica l mg/0.5 mL morning. Branch (18 mg/3 Use as mL) PnIj directed, titrate as advised. Start taking Saxenda. Start off by taking 0.6 mg under the skin/Subcu taneous (SC) daily. After the first week, if tolerated (no abdominal issues), can increase to 1.2mg SC daily. After the second week, if tolerated, can increase to 1.8mg SC daily. After the third week, if tolerated, can increase to 2.4mg SC daily. After the fourth week, if tolerated, can increase to 3mg SC daily. Watch the link to see how to use the Saxenda https://Backand/about- saxenda/ho w-to-use-t he-pen.htm l If experienci ng severe abdominal pain along with nausea and/or vomiting please call clinic [facility] or or go to Emergency room if any of these symptoms occur. This could be sign of Pancreatit is. liraglutide 2021-09 Yes [id number] 3mg inject 3 Univers , weight 1-15 mg under ity of loss, 00:00: the skin [place] (SAXENDA) 3 00 in the Medica l mg/0.5 mL morning. Branch (18 mg/3 Use as mL) PnIj directed, titrate as advised. Start taking Saxenda. Start off by taking 0.6 mg under the skin/Subcu taneous (SC) daily. After the first week, if tolerated (no abdominal issues), can increase to 1.2mg SC daily. After the second week, if tolerated, can increase to 1.8mg SC daily. After the third week, if tolerated, can increase to 2.4mg SC daily. After the fourth week, if tolerated, can increase to 3mg SC daily. Watch the link to see how to use the Saxenda [email or web address]- [email or web address] w-to-use-t he-[email or web address] l If experienci ng severe abdominal pain along with nausea and/or vomiting please call clinic [facility] or or go to Emergency room if any of these symptoms occur. This could be sign of Pancreatit is. liraglutide 2021-09 Yes [id number] 3mg inject 3 [facility] , weight 1-15 mg under ity of loss, 00:00: the skin [place] (SAXENDA) 3 00 in the Medica l mg/0.5 mL morning. Branch (18 mg/3 Use as mL) PnIj directed, titrate as advised. Start taking Saxenda. Start off by taking 0.6 mg under the skin/Subcu taneous (SC) daily. After the first week, if tolerated (no abdominal issues), can increase to 1.2mg SC daily. After the second week, if tolerated, can increase to 1.8mg SC daily. After the third week, if tolerated, can increase to 2.4mg SC daily. After the fourth week, if tolerated, can increase to 3mg SC daily. Watch the link to see how to use the Saxenda [email or web address]- [email or web address] w-to-use-t he-[email or web address] l If experienci ng severe abdominal pain along with nausea and/or vomiting please call clinic [facility] or or go to Emergency room if any of these symptoms occur. This could be sign of Pancreatit is. liraglutide 2021-09 Yes [id number] 3mg inject 3 [facility] , weight 1-15 mg under ity of loss, 00:00: the skin [place] (SAXENDA) 3 00 in the Medica l mg/0.5 mL morning. Branch (18 mg/3 Use as mL) PnIj directed, titrate as advised. Start taking Saxenda. Start off by taking 0.6 mg under the skin/Subcu taneous (SC) daily. After the first week, if tolerated (no abdominal issues), can increase to 1.2mg SC daily. After the second week, if tolerated, can increase to 1.8mg SC daily. After the third week, if tolerated, can increase to 2.4mg SC daily. After the fourth week, if tolerated, can increase to 3mg SC daily. Watch the link to see how to use the Saxenda [email or web address]/about- [email or web address] w-to-use-t he-[email or web address] l If experienci ng severe abdominal pain along with nausea and/or vomiting please call clinic [facility] or or go to Emergency room if any of these symptoms occur. This could be sign of Pancreatit is. liraglutide 2021-09 Yes [id number] 3mg inject 3 [facility] , weight 1-15 mg under ity of loss, 00:00: the skin [place] (SAXENDA) 3 00 in the Medica l mg/0.5 mL morning. Branch (18 mg/3 Use as mL) PnIj directed, titrate as advised. Start taking Saxenda. Start off by taking 0.6 mg under the skin/Subcu taneous (SC) daily. After the first week, if tolerated (no abdominal issues), can increase to 1.2mg SC daily. After the second week, if tolerated, can increase to 1.8mg SC daily. After the third week, if tolerated, can increase to 2.4mg SC daily. After the fourth week, if tolerated, can increase to 3mg SC daily. Watch the link to see how to use the Saxenda [email or web address]- [email or web address] w-to-use-t he-[email or web address] l If experienci ng severe abdominal pain along with nausea and/or vomiting please call [facility] or or go to Emergency room if any of these symptoms occur. This could be sign of Pancreatit is. liraglutide 2021-09 Yes [id number] 3mg inject 3 [facility] , weight 1-15 mg under ity of loss, 00:00: the skin [place] (SAXENDA) 3 00 in the Medica l mg/0.5 mL morning. Branch (18 mg/3 Use as mL) PnIj directed, titrate as advised. Start taking Saxenda. Start off by taking 0.6 mg under the skin/Subcu taneous (SC) daily. After the first week, if tolerated (no abdominal issues), can increase to 1.2mg SC daily. After the second week, if tolerated, can increase to 1.8mg SC daily. After the third week, if tolerated, can increase to 2.4mg SC daily. After the fourth week, if tolerated, can increase to 3mg SC daily. Watch the link to see how to use the Saxenda [email or web address]://[email or web address]/about- [email or web address] w-to-use-t he-[email or web address] l If experienci ng severe abdominal pain along with nausea and/or vomiting please call clinic [facility] or or go to Emergency room if any of these symptoms occur. This could be sign of Pancreatit is. liraglutide 2021-09 Yes [id number] 3mg inject 3 [facility] , weight 1-15 mg under ity of loss, 00:00: the skin [place] (SAXENDA) 3 00 in the Medica l mg/0.5 mL morning. Branch (18 mg/3 Use as mL) PnIj directed, titrate as advised. Start taking Saxenda. Start off by taking 0.6 mg under the skin/Subcu taneous (SC) daily. After the first week, if tolerated (no abdominal issues), can increase to 1.2mg SC daily. After the second week, if tolerated, can increase to 1.8mg SC daily. After the third week, if tolerated, can increase to 2.4mg SC daily. After the fourth week, if tolerated, can increase to 3mg SC daily. Watch the link to see how to use the Saxenda [email or web address]://[email or web address]/about- [email or web address] w-to-use-t he-[email or web address] l If experienci ng severe abdominal pain along with nausea and/or vomiting please call clinic [facility] or or go to Emergency room if any of these symptoms occur. This could be sign of Pancreatit is. liraglutide 2021-09 Yes [id number] 3mg inject 3 [facility] , weight 1-15 mg under ity of loss, 00:00: the skin [place] (SAXENDA) 3 00 in the Medica l mg/0.5 mL morning. Branch (18 mg/3 Use as mL) PnIj directed, titrate as advised. Start taking Saxenda. Start off by taking 0.6 mg under the skin/Subcu taneous (SC) daily. After the first week, if tolerated (no abdominal issues), can increase to 1.2mg SC daily. After the second week, if tolerated, can increase to 1.8mg SC daily. After the third week, if tolerated, can increase to 2.4mg SC daily. After the fourth week, if tolerated, can increase to 3mg SC daily. Watch the link to see how to use the Saxenda [email or web address]://[email or web address]/about- [email or web address] w-to-use-t he-[email or web address] l If experienci ng severe abdominal pain along with nausea and/or vomiting please call [facility] or or go to Emergency room if any of these symptoms occur. This could be sign of Pancreatit is. liraglutide 2021-09 Yes [id number] 3mg inject 3 [facility] , weight 1-15 mg under ity of loss, 00:00: the skin [place] (SAXENDA) 3 00 in the Medica l mg/0.5 mL morning. Branch (18 mg/3 Use as mL) PnIj directed, titrate as advised. Start taking Saxenda. Start off by taking 0.6 mg under the skin/Subcu taneous (SC) daily. After the first week, if tolerated (no abdominal issues), can increase to 1.2mg SC daily. After the second week, if tolerated, can increase to 1.8mg SC daily. After the third week, if tolerated, can increase to 2.4mg SC daily. After the fourth week, if tolerated, can increase to 3mg SC daily. Watch the link to see how to use the Saxenda [email or web address]://[email or web address]/about- [email or web address] w-to-use-t he-[email or web address] l If experienci ng severe abdominal pain along with nausea and/or vomiting please call [facility] or or go to Emergency room if any of these symptoms occur. This could be sign of Pancreatit is. liraglutide 2021-09 Yes [id number] 3mg inject 3 [facility] , weight 1-15 mg under ity of loss, 00:00: the skin [place] (SAXENDA) 3 00 in the Medica l mg/0.5 mL morning. Branch (18 mg/3 Use as mL) PnIj directed, titrate as advised. Start taking Saxenda. Start off by taking 0.6 mg under the skin/Subcu taneous (SC) daily. After the first week, if tolerated (no abdominal issues), can increase to 1.2mg SC daily. After the second week, if tolerated, can increase to 1.8mg SC daily. After the third week, if tolerated, can increase to 2.4mg SC daily. After the fourth week, if tolerated, can increase to 3mg SC daily. Watch the link to see how to use the Saxenda [email or web address]://[email or web address]/about- [email or web address] w-to-use-t he-[email or web address] l If experienci ng severe abdominal pain along with nausea and/or vomiting please call [facility] or or go to Emergency room if any of these symptoms occur. This could be sign of Pancreatit is. liraglutide 2021-09 Yes [id number] 3mg inject 3 [facility] , weight 1-15 mg under ity of loss, 00:00: the skin [place] (SAXENDA) 3 00 in the Medica l mg/0.5 mL morning. Branch (18 mg/3 Use as mL) PnIj directed, titrate as advised. Start taking Saxenda. Start off by taking 0.6 mg under the skin/Subcu taneous (SC) daily. After the first week, if tolerated (no abdominal issues), can increase to 1.2mg SC daily. After the second week, if tolerated, can increase to 1.8mg SC daily. After the third week, if tolerated, can increase to 2.4mg SC daily. After the fourth week, if tolerated, can increase to 3mg SC daily. Watch the link to see how to use the Saxenda [email or web address]://[email or web address]/about- [email or web address] w-to-use-t he-[email or web address] l If experienci ng severe abdominal pain along with nausea and/or vomiting please call [facility] or or go to Emergency room if any of these symptoms occur. This could be sign of Pancreatit is. liraglutide 2021-09 Yes [id number] 3mg inject 3 [facility] , weight 1-15 mg under ity of loss, 00:00: the skin [place] (SAXENDA) 3 00 in the Medica l mg/0.5 mL morning. Branch (18 mg/3 Use as mL) PnIj directed, titrate as advised. Start taking Saxenda. Start off by taking 0.6 mg under the skin/Subcu taneous (SC) daily. After the first week, if tolerated (no abdominal issues), can increase to 1.2mg SC daily. After the second week, if tolerated, can increase to 1.8mg SC daily. After the third week, if tolerated, can increase to 2.4mg SC daily. After the fourth week, if tolerated, can increase to 3mg SC daily. Watch the link to see how to use the Saxenda [email or web address]- [email or web address] w-to-use-t he-[email or web address] l If experienci ng severe abdominal pain along with nausea and/or vomiting please call clinic [facility] or or go to Emergency room if any of these symptoms occur. This could be sign of Pancreatit is. liraglutide 2021-09 Yes [id number] 3mg inject 3 [facility] , weight 1-15 mg under ity of loss, 00:00: the skin [place] (SAXENDA) 3 00 in the Medica l mg/0.5 mL morning. Branch (18 mg/3 Use as mL) PnIj directed, titrate as advised. Start taking Saxenda. Start off by taking 0.6 mg under the skin/Subcu taneous (SC) daily. After the first week, if tolerated (no abdominal issues), can increase to 1.2mg SC daily. After the second week, if tolerated, can increase to 1.8mg SC daily. After the third week, if tolerated, can increase to 2.4mg SC daily. After the fourth week, if tolerated, can increase to 3mg SC daily. Watch the link to see how to use the Saxenda [email or web address]- [email or web address] w-to-use-t he-[email or web address] l If experienci ng severe abdominal pain along with nausea and/or vomiting please call clinic [facility] or or go to Emergency room if any of these symptoms occur. This could be sign of Pancreatit is. diphenhydra 2021-09 Yes Take by [facility] vers mine HCl 0-28 mouth. ity of (BENADRYL 13:11: [place] ORAL) 30 Medical Branch diphenhydra 2021-09 Yes Take by [facility] vers mine HCl 0-28 mouth. ity of (BENADRYL 13:11: [place] ORAL) 30 Medical Branch diphenhydra 2021-09 Yes Take by [facility] vers mine HCl 0-28 mouth. ity of (BENADRYL 13:11: [place] ORAL) 30 Medical Branch diphenhydra 2021-09 Yes Take by [facility] vers mine HCl 0-28 mouth. ity of (BENADRYL 13:11: [place] ORAL) 30 Medical Branch diphenhydra 2021-09 Yes Take by [facility] vers mine HCl 0-28 mouth. ity of (BENADRYL 13:11: [place] ORAL) 30 Medical Branch diphenhydra 2021-09 Yes Take by [facility] vers mine HCl 0-28 mouth. ity of (BENADRYL 13:11: [place] ORAL) 30 Medical Branch diphenhydra 2021-09 Yes Take by [facility] vers mine HCl 0-28 mouth. ity of (BENADRYL 13:11: [place] ORAL) 30 Medical Branch diphenhydra 2021-09 Yes Take by [facility] vers mine HCl 0-28 mouth. ity of (BENADRYL 13:11: [place] ORAL) 30 Medical Branch diphenhydra 2021-09 Yes Take by [facility] vers mine HCl 0-28 mouth. ity of (BENADRYL 13:11: [place] ORAL) 30 Medical Branch diphenhydra 2021-09 Yes Take by [facility] vers mine HCl 0-28 mouth. ity of (BENADRYL 13:11: [place] ORAL) 30 Medical Branch diphenhydra 2021-09 Yes Take by [facility] vers mine HCl 0-28 mouth. ity of (BENADRYL 13:11: [place] ORAL) 30 Medical Branch diphenhydra 2021-09 Yes Take by [facility] vers mine HCl 0-28 mouth. ity of (BENADRYL 13:11: [place] ORAL) 30 Medical Branch diphenhydra 2021-09 Yes Take by [facility] vers mine HCl 0-28 mouth. ity of (BENADRYL 13:11: [place] ORAL) 30 Medical Branch diphenhydra 2021-09 Yes Take by [facility] vers mine HCl 0-28 mouth. ity of (BENADRYL 13:11: [place] ORAL) 30 Medical Branch diphenhydra 2021-09 Yes Take by [facility] vers mine HCl 0-28 mouth. ity of (BENADRYL 13:11: [place] ORAL) 30 Medical Branch diphenhydra 2021-09 Yes Take by [facility] vers mine HCl 0-28 mouth. ity of (BENADRYL 13:11: [place] ORAL) 30 Medical Branch diphenhydra 2021-09 Yes Take by [facility] vers mine HCl 0-28 mouth. ity of (BENADRYL 13:11: [place] ORAL) 30 Medical Branch diphenhydra 2021-09 Yes Take by [facility] vers mine HCl 0-28 mouth. ity of (BENADRYL 13:11: [place] ORAL) 30 Medical Branch diphenhydra 2021-09 Yes Take by [facility] vers mine HCl 0-28 mouth. ity of (BENADRYL 13:11: [place] ORAL) 30 Medical Branch diphenhydra 2021-09 Yes Take by [facility] vers mine HCl 0-28 mouth. ity of (BENADRYL 13:11: [place] ORAL) 30 Medical Branch diphenhydra 2021-09 Yes Take by [facility] vers mine HCl 0-28 mouth. ity of (BENADRYL 13:11: [place] ORAL) 30 Medical Branch diphenhydra 2021-09 Yes Take by [facility] vers mine HCl 0-28 mouth. ity of (BENADRYL 13:11: [place] ORAL) 30 Medical Branch diphenhydra 2021-09 Yes Take by [facility] vers mine HCl 0-28 mouth. ity of (BENADRYL 13:11: [place] ORAL) 30 Medical Branch diphenhydra 2021-09 Yes Take by [facility] vers mine HCl 0-28 mouth. ity of (BENADRYL 13:11: [place] ORAL) 30 Medical Branch diphenhydra 2021-09 Yes Take by [facility] vers mine HCl 0-28 mouth. ity of (BENADRYL 13:11: [place] ORAL) 30 Medical Branch diphenhydra 2021-09 Yes Take by [facility] vers mine HCl 0-28 mouth. ity of (BENADRYL 13:11: [place] ORAL) 30 Medical Branch diphenhydra 2021-09 Yes Take by [facility] vers mine HCl 0-28 mouth. ity of (BENADRYL 13:11: [place] ORAL) 30 Medical Branch diphenhydra 2021-09 Yes Take by [facility] vers mine HCl 0-28 mouth. ity of (BENADRYL 13:11: [place] ORAL) 30 Medical Branch diphenhydra 2021-09 Yes Take by [facility] vers mine HCl 0-28 mouth. ity of (BENADRYL 13:11: [place] ORAL) 30 Medical Branch diphenhydra 2021-09 Yes Take by [facility] vers mine HCl 0-28 mouth. ity of (BENADRYL 13:11: [place] ORAL) 30 Medical Branch diphenhydra 2021-09 Yes Take by [facility] vers mine HCl 0-28 mouth. ity of (BENADRYL 13:11: [place] ORAL) 30 Medical Branch diphenhydra 2021-09 Yes Take by [facility] vers mine HCl 0-28 mouth. ity of (BENADRYL 13:11: [place] ORAL) 30 Medical Branch diphenhydra 2021-09 Yes Take by [facility] vers mine HCl 0-28 mouth. ity of (BENADRYL 13:11: [place] ORAL) 30 Medical Branch diphenhydra 2021-09 Yes Take by [facility] vers mine HCl 0-28 mouth. ity of (BENADRYL 13:11: [place] ORAL) 30 Medical Branch diphenhydra 2021-09 Yes Take by [facility] vers mine HCl 0-28 mouth. ity of (BENADRYL 13:11: [place] ORAL) 30 Medical Branch diphenhydra 2021-09 Yes Take by [facility] vers mine HCl 0-28 mouth. ity of (BENADRYL 13:11: [place] ORAL) 30 Medical Branch diphenhydra 2021-09 Yes Take by [facility] vers mine HCl 0-28 mouth. ity of (BENADRYL 13:11: [place] ORAL) 30 Medical Branch diphenhydra 2021-09 Yes Take by [facility] vers mine HCl 0-28 mouth. ity of (BENADRYL 13:11: [place] ORAL) 30 Medical Branch diphenhydra 2021-09 Yes Take by [facility] vers mine HCl 0-28 mouth. ity of (BENADRYL 13:11: [place] ORAL) 30 Medical Branch diphenhydra 2021-09 Yes Take by [facility] vers mine HCl 0-28 mouth. ity of (BENADRYL 13:11: [place] ORAL) 30 Medical Branch diphenhydra 2021-09 Yes Take by [facility] vers mine HCl 0-28 mouth. ity of (BENADRYL 13:11: [place] ORAL) 30 Medical Branch diphenhydra 2021-09 Yes Take by [facility] vers mine HCl 0-28 mouth. ity of (BENADRYL 13:11: [place] ORAL) 30 Medical Branch diphenhydra 2021-09 Yes Take by [facility] vers mine HCl 0-28 mouth. ity of (BENADRYL 13:11: [place] ORAL) 30 Medical Branch diphenhydra 2021-09 Yes Take by [facility] vers mine HCl 0-28 mouth. ity of (BENADRYL 13:11: [place] ORAL) 30 Medical Branch dexAMETHaso 2021-09 Yes TAKE 1 [facility] ers ne 1 mg 0-28 TABLET BY ity of tablet 00:00: MOUTH NOW ONCE NOW Medical FOR 1 DOSE Branch TAKE BETWEEN 11 PM AND MIDNIGHT dexAMETHaso 2021-09 Yes TAKE 1 Univ ers ne 1 mg 0-28 TABLET BY ity of tablet 00:00: MOUTH ONCE NOW Medical FOR 1 DOSE Branch TAKE BETWEEN 11 PM AND MIDNIGHT dexAMETHaso 2021-09 Yes TAKE 1 [facility] ers ne 1 mg 0-28 TABLET BY ity of tablet 00:00: MOUTH NOW ONCE NOW Medical FOR 1 DOSE Branch TAKE BETWEEN 11 PM AND MIDNIGHT dexAMETHaso 2021-09 Yes TAKE 1 [facility] ers ne 1 mg 0-28 TABLET BY ity of tablet 00:00: MOUTH ONCE NOW Medical FOR 1 DOSE Branch TAKE BETWEEN 11 PM AND MIDNIGHT dexAMETHaso 2021-09 Yes TAKE 1 [facility] ers ne 1 mg 0-28 TABLET BY ity of tablet 00:00: MOUTH ONCE NOW Medical FOR 1 DOSE Branch TAKE BETWEEN 11 PM AND MIDNIGHT dexAMETHaso 2021-09 Yes TAKE 1 [facility] ers ne 1 mg 0-28 TABLET BY ity of tablet 00:00: MOUTH ONCE NOW Medical FOR 1 DOSE Branch TAKE BETWEEN 11 PM AND MIDNIGHT dexAMETHaso 2021-092- No [id number] 1mg Take 1 [facility] ne 1 mg 0-28 10-29 tablet by [place] [place] tablet 00:00: 04:59 [place] :[place] now for 1 Medical dose. Take Branch between 11PM and midnight dexAMETHaso 2021-09- No [id number] 1mg Take 1 [facility] ne 1 mg 0-28 10-29 tablet by ity of tablet 00:00: 04:59 [place] 00 :[place] now for 1 Medical dose. Take Branch between 11PM and midnight methylpredn 2021-09- No [id number] 125mg [facility] isolone sod 0-20 10-20 ity of succ 01:30: 00:49 [place] (SOLU-MEDRO 00 :00 Medical L) Branch injection 125 mg diphenhydrA 2021-09- No [id number] 25mg [facility] MINE 0-20 10-20 ity of (BENADRYL) 01:30: 01:01 [place] 12.5 mg/5 00 :00 Medical mL solution Branch 25 mg diphenhydrA 2021-09- No [id number] 25mg 25 mg, [facility] MINE 0-20 10-20 Oral, ity of (BENADRYL) :30: 01:01 ONCE, 1 [place] 12.5 mg/5 00 :00 dose, On Medica l mL solution Wed Branch 25 mg 07/14/22 at 2030, Routine methylpredn 2021-09- No [id number] 125mg 125 mg, [facility] isolone sod 0-20 10-20 Slow IV ity of succ 01:30: 00:49 [place], [place] (SOLU-MEDRO 00 :00 ONCE, 1 Medic al L) dose, On Branch injection Wed 125 mg 07/14/22 at 2030, Routine busPIRone 2021-09 Yes [id number] 10mg Take 1 Un rory 10 mg 0-19 tablet by ity of tablet 00:00: mouth 2 (two) Medical times Branch daily as needed for Other (anxiety). busPIRone 2021-09 Yes [id number] 10mg Take 1 Un rory 10 mg 0-19 tablet by ity of tablet 00:00: mouth 2 (two) Medical times Branch daily as needed for Other (anxiety). busPIRone 2021-09 Yes [id number] 10mg Take 1 Un rory 10 mg 0-19 tablet by ity of tablet 00:00: mouth 2 (two) Medical times Branch daily as needed for Other (anxiety). busPIRone 2021-09 Yes [id number] 10mg Take 1 Un rory 10 mg 0-19 tablet by ity of tablet 00:00: mouth 2 (two) Medical times Branch daily as needed for Other (anxiety). cetirizine 2021-09 Yes [id number] 10mg Take 1 [facility] (ZYRTEC) 10 0-19 tablet by [facility]y of mg tablet 00:00: mouth [place] 00 the Medical morning. Branch famotidine 2021-09 Yes [id number] 40mg Take 1 [facility] 40 mg 0-19 tablet by ity of tablet 00:00: mouth in 00 the Medical morning. Branch busPIRone 2021-09 Yes [id number] 10mg Take 1 Un rory 10 mg 0-19 tablet by ity of tablet 00:00: mouth 2 (two) Medical times Branch daily as needed for Other (anxiety). cetirizine 2021-09 Yes [id number] 10mg Take 1 [facility] (ZYRTEC) 10 0-19 tablet by [facility] of mg tablet 00:00: [place] 00 the Medical morning. Branch famotidine 2021-09 Yes [id number] 40mg Take 1 [facility] 40 mg 0-19 tablet by ity of tablet 00:00: mouth in 00 the Medical morning. Branch busPIRone 2021-09 Yes [id number] 10mg Take 1 Un rory 10 mg 0-19 tablet by ity of tablet 00:00: mouth 2 (two) Medical times Branch daily as needed for Other (anxiety). cetirizine 2021-09 Yes [id number] 10mg Take 1 [facility] (ZYRTEC) 10 0-19 tablet by [facility]y of mg tablet 00:00: mouth in [place] 00 the Medical morning. Branch famotidine 2021-09 Yes [id number] 40mg Take 1 [facility] 40 mg 0-19 tablet by ity of tablet 00:00: mouth in [place] 00 the Medical morning. Branch busPIRone 2021-09 Yes [id number] 10mg Take 1 Un rory 10 mg 0-19 tablet by ity of tablet 00:00: mouth 2 (two) Medical times Branch daily as needed for Other (anxiety). cetirizine 2021-09 Yes [id number] 10mg Take 1 [facility] (ZYRTEC) 10 0-19 tablet by [facility]y of mg tablet 00:00: mouth in [place] 00 the Medical morning. Branch famotidine 2021-09 Yes [id number] 40mg Take 1 [facility] 40 mg 0-19 tablet by ity of tablet 00:00: mouth in [place] 00 the Medical morning. Branch busPIRone 2021-09 Yes [id number] 10mg Take 1 Un rory 10 mg 0-19 tablet by ity of tablet 00:00: mouth 2 00 (two) Medical times Branch daily as needed for Other (anxiety). cetirizine 2021-09 Yes [id number] 10mg Take 1 [facility] (ZYRTEC) 10 0-19 tablet by [facility]y of mg tablet 00:00: mouth in [place] 00 the Medical morning. Branch famotidine 2021-09 Yes [id number] 40mg Take 1 [facility] 40 mg 0-19 tablet by ity of tablet 00:00: mouth in 00 the Medical morning. Branch busPIRone 2021-09 Yes [id number] 10mg Take 1 Un rory 10 mg 0-19 tablet by ity of tablet 00:00: mouth 2 (two) Medical times Branch daily as needed for Other (anxiety). cetirizine 2021-09 Yes [id number] 10mg Take 1 [facility] (ZYRTEC) 10 0-19 tablet by [facility]y of mg tablet 00:00: mouth [place] 00 the Medical morning. Branch famotidine 2021-09 Yes [id number] 40mg Take 1 [facility] 40 mg 0-19 tablet by ity of tablet 00:00: mouth in [place] 00 the Medical morning. Branch busPIRone 2021-09 Yes [id number] 10mg Take 1 Un rory 10 mg 0-19 tablet by ity of tablet 00:00: mouth 2 00 (two) Medical times Branch daily as needed for Other (anxiety). cetirizine 2021-09 Yes [id number] 10mg Take 1 [facility] (ZYRTEC) 10 0-19 tablet by [facility]y of mg tablet 00:00: mouth [place] 00 the Medical morning. Branch famotidine 2021-09 Yes [id number] 40mg Take 1 [facility] 40 mg 0-19 tablet by ity of tablet 00:00: mouth in [place] 00 the Medical morning. Branch busPIRone 2021-09 Yes [id number] 10mg Take 1 Un rory 10 mg 0-19 tablet by ity of tablet 00:00: mouth 2 (two) Medical times Branch daily as needed for Other (anxiety). cetirizine 2021-09 Yes [id number] 10mg Take 1 [facility] (ZYRTEC) 10 0-19 tablet by [facility] of mg tablet 00:00: mouth [place] 00 the Medical morning. Branch famotidine 2021-09 Yes [id number] 40mg Take 1 [facility] 40 mg 0-19 tablet by ity of tablet 00:00: mouth in [place] 00 the Medical morning. Branch busPIRone 2021-09 Yes [id number] 10mg Take 1 Un rory 10 mg 0-19 tablet by ity of tablet 00:00: mouth 2 (two) Medical times Branch daily as needed for Other (anxiety). cetirizine 2021-09 Yes [id number] 10mg Take 1 [facility] (ZYRTEC) 10 0-19 tablet by [facility]y of mg tablet 00:00: mouth [place] 00 the Medical morning. Branch famotidine 2021-09 Yes [id number] 40mg Take 1 [facility] 40 mg 0-19 tablet by ity of tablet 00:00: mouth in [place] 00 the Medical morning. Branch busPIRone 2021-09 Yes [id number] 10mg Take 1 Un rory 10 mg 0-19 tablet by ity of tablet 00:00: mouth 2 (two) Medical times Branch daily as needed for Other (anxiety). cetirizine 2021-09 Yes [id number] 10mg Take 1 [facility] (ZYRTEC) 10 0-19 tablet by [facility]y of mg tablet 00:00: mouth [place] 00 the Medical morning. Branch famotidine 2021-09 Yes [id number] 40mg Take 1 [facility] 40 mg 0-19 tablet by ity of tablet 00:00: mouth in [place] 00 the Medical morning. Branch busPIRone 2021-09 Yes [id number] 10mg Take 1 Un rory 10 mg 0-19 tablet by ity of tablet 00:00: mouth 2 (two) Medical times Branch daily as needed for Other (anxiety). cetirizine 2021-09 Yes [id number] 10mg Take 1 [facility] (ZYRTEC) 10 0-19 tablet by [facility]y of mg tablet 00:00: mouth [place] 00 the Medical morning. Branch famotidine 2021-09 Yes [id number] 40mg Take 1 [facility] 40 mg 0-19 tablet by ity of tablet 00:00: mouth in [place] 00 the Medical morning. Branch busPIRone 2021-09 Yes [id number] 10mg Take 1 Un rory 10 mg 0-19 tablet by ity of tablet 00:00: mouth 2 00 (two) Medical times Branch daily as needed for Other (anxiety). cetirizine 2021-09 Yes [id number] 10mg Take 1 [facility] (ZYRTEC) 10 0-19 tablet by [facility]y of mg tablet 00:00: mouth [place] 00 the Medical morning. Branch famotidine 2021-09 Yes [id number] 40mg Take 1 [facility] 40 mg 0-19 tablet by ity of tablet 00:00: mouth in [place] 00 the Medical morning. Branch busPIRone 2021-09 Yes [id number] 10mg Take 1 Un rory 10 mg 0-19 tablet by ity of tablet 00:00: mouth 2 (two) Medical times Branch daily as needed for Other (anxiety). cetirizine 2021-09 Yes [id number] 10mg Take 1 [facility] (ZYRTEC) 10 0-19 tablet by [facility]y of mg tablet 00:00: mouth [place] 00 the Medical morning. Branch famotidine 2021-09 Yes [id number] 40mg Take 1 [facility] 40 mg 0-19 tablet by ity of tablet 00:00: mouth in [place] 00 the Medical morning. Branch busPIRone 2021-09 Yes [id number] 10mg Take 1 Un rory 10 mg 0-19 tablet by [facility] tablet 00:00: mouth 2 00 (two) Medical times Branch daily as needed for Other (anxiety). cetirizine 2021-09 Yes [id number] 10mg Take 1 [facility] (ZYRTEC) 10 0-19 tablet by [facility] tablet 00:00: mouth [place] 00 the Medical morning. Branch famotidine 2021-09 Yes [id number] 40mg Take 1 [facility] 40 mg 0-19 tablet by [facility] tablet 00:00: mouth in [place] 00 the Medical morning. Branch busPIRone 2021-09 Yes [id number] 10mg Take 1 [facility] 10 mg 0-19 tablet by [facility] of tablet 00:00: mouth 2 (two) Medical times Branch daily as needed for Other (anxiety). cetirizine 2021-09 Yes [id number] 10mg Take 1 [facility] (ZYRTEC) 10 0-19 tablet by [facility] mg tablet 00:00: mouth [place] 00 the Medical morning. Branch famotidine 2021-09 Yes [id number] 40mg Take 1 [facility] 40 mg 0-19 tablet by [facility] of tablet 00:00: mouth in [place] 00 the Medical morning. Branch busPIRone 2021-09 Yes [id number] 10mg Take 1 Un [facility] 10 mg 0-19 tablet by [facility] of tablet 00:00: mouth 2 [place] (two) Medical times [place] daily as needed for Other (anxiety). cetirizine 2021-09 Yes [id number] 10mg Take 1 [facility] (ZYRTEC) 10 0-19 tablet by [facility] mg tablet 00:00: mouth in [place] 00 the Medical morning. Branch famotidine 2021-09 Yes [id number] 40mg Take 1 [facility] 40 mg 0-19 tablet by [facility] of tablet 00:00: mouth in [place] 00 the Medical morning. Branch busPIRone 2021-09 Yes [id number] 10mg Take 1 [facility] 10 mg 0-19 tablet by [facility] of tablet 00:00: mouth 2 [place] (two) Medical times Branch daily as needed for Other (anxiety). cetirizine 2021-09 Yes [id number] 10mg Take 1 [facility] (ZYRTEC) 10 0-19 tablet by [facility] mg tablet 00:00: mouth [place] 00 the Medical morning. Branch famotidine 2021-09 Yes [id number] 40mg Take 1 [facility] 40 mg 0-19 tablet by [facility] of tablet 00:00: mouth in [place] 00 the Medical morning. Branch busPIRone 2021-09 Yes [id number] 10mg Take 1 [facility] r[facility] 10 mg 0-19 tablet by [facility] of tablet 00:00: mouth 2 [place] 00 (two) Medical times Branch daily as needed for Other (anxiety). cetirizine 2021-09 Yes [id number] 10mg Take 1 [facility] (ZYRTEC) 10 0-19 tablet by [facility] mg tablet 00:00: mouth in [place] 00 the Medical morning. Branch famotidine 2021-09 Yes [id number] 40mg Take 1 [facility] 40 mg 0-19 tablet by [facility] of tablet 00:00: mouth in 00 the Medical morning. Branch busPIRone 2021-09 Yes [id number] 10mg Take 1 [facility] 10 mg 0-19 tablet by [facility] of tablet 00:00: mouth 2 (two) Medical times Branch daily as needed for Other (anxiety). cetirizine 2021-09 Yes [id number] 10mg Take 1 [facility] (ZYRTEC) 10 0-19 tablet by [facility] tablet [place] the Medical morning. [facility] famotidine 2021-09 Yes [id number] 40mg Take 1 [facility] 40 mg 0-19 tablet by [facility] tablet 00:00: mouth in the Medical morning. Branch busPIRone 2021-09 Yes [id number] 10mg Take 1 [facility] 10 mg 0-19 tablet by [facility] of tablet 00:00: mouth 2 (two) Medical times Branch daily as needed for Other (anxiety). cetirizine 2021-09 Yes [id number] 10mg Take 1 [facility] (ZYRTEC) 10 0-19 tablet by [facility] tablet [place]: [place] the Medical morning. [facility] famotidine 2021-09 Yes [id number] 40mg Take 1 [facility] 40 mg 0-19 tablet by [facility] tablet 00:00: mouth in [place] 00 the Medical morning. Branch busPIRone 2021-09 Yes [id number] 10mg Take 1 [facility] 10 mg 0-19 tablet by [facility] of tablet 00:00: mouth 2 (two) Medical times Branch daily as needed for Other (anxiety). cetirizine 2021-09 Yes [id number] 10mg Take 1 [facility] (ZYRTEC) 10 0-19 tablet by [facility] mg tablet 00:00: mouth in [place] 00 the Medical morning. Branch famotidine 2021-09 Yes [id number] 40mg Take 1 [facility] 40 mg 0-19 tablet by [facility] of tablet 00:00: mouth in [place] 00 the Medical morning. Branch busPIRone 2021-09 Yes [id number] 10mg Take 1 [facility] r[facility] 10 mg 0-19 tablet by [facility] of tablet 00:00: mouth 2 [place] 00 (two) Medical times Branch daily as needed for Other (anxiety). cetirizine 2021-09 Yes [id number] 10mg Take 1 [facility] (ZYRTEC) 10 0-19 tablet by [facility] mg tablet 00:00: mouth in [place] 00 the Medical morning. [place] famotidine 2021-09 Yes [id number] 40mg Take 1 [facility] 40 mg 0-19 tablet by [facility] of tablet 00:00: mouth in [place] 00 the Medical morning. [place] busPIRone 2021-09 Yes [id number] 10mg Take 1 [facility] r[facility] 10 mg 0-19 tablet by [facility] of tablet 00:00: mouth 2 [place] 00 (two) Medical times [place] daily as needed for Other (anxiety). cetirizine 2021-09 Yes [id number] 10mg Take 1 [facility] (ZYRTEC) 10 0-19 tablet by [facility] mg tablet 00:00: mouth in [place] 00 the Medical morning. [place] famotidine 2021-09 Yes [id number] 40mg Take 1 [facility] 40 mg 0-19 tablet by [facility] of tablet 00:00: mouth in [place] 00 the Medical morning. [place] busPIRone 2021-09 Yes [id number] 10mg Take 1 Un r[facility] 10 mg 0-19 tablet by [facility] of tablet 00:00: mouth 2 [place] 00 (two) Medical times [place] daily as needed for Other (anxiety). cetirizine 2021-09 Yes [id number] 10mg Take 1 [facility] (ZYRTEC) 10 0-19 tablet by [facility] mg tablet 00:00: mouth in [place] 00 the Medical morning. Branch famotidine 2021-09 Yes [id number] 40mg Take 1 [facility] 40 mg 0-19 tablet by [facility] of tablet 00:00: mouth in [place] 00 the Medical morning. [place] busPIRone 2021-09 Yes [id number] 10mg Take 1 [facility] r[facility] 10 mg 0-19 tablet by [facility] of tablet 00:00: mouth 2 (two) Medical times Branch daily as needed for Other (anxiety). cetirizine 2021-09 Yes [id number] 10mg Take 1 [facility] (ZYRTEC) 10 0-19 tablet by [facility] tablet 00:[place]: [place] the Medical morning. [facility] famotidine 2021-09 Yes [id number] 40mg Take 1 [facility] 40 mg 0-19 tablet by [facility] of tablet 00:00: mouth in 00 the Medical morning. Branch busPIRone 2021-09 Yes [id number] 10mg Take 1 [facility] 10 mg 0-19 tablet by [facility] of tablet 00:00: mouth 2 (two) Medical times [facility] daily as needed for Other (anxiety). cetirizine 2021-09 Yes [id number] 10mg Take 1 [facility] (ZYRTEC) 10 0-19 tablet by [facility] mg tablet 00:00: mouth in [place] the Medical morning. [facility] famotidine 2021-09 Yes [id number] 40mg Take 1 [facility] 40 mg 0-19 tablet by [facility] of tablet 00:00: mouth in the Medical morning. Branch busPIRone 2021-09 Yes [id number] 10mg Take 1 [facility] r[facility] 10 mg 0-19 tablet by [facility] of tablet 00:00: mouth (two) Medical times Branch daily as needed for Other (anxiety). cetirizine 2021-09 Yes [id number] 10mg Take 1 [facility] (ZYRTEC) 10 0-19 tablet by [facility] mg tablet 00:00: mouth in [place] 00 the Medical morning. [facility] famotidine 2021-09 Yes [id number] 40mg Take 1 [facility] 40 mg 0-19 tablet by [facility] tablet 00:00: mouth in 00 the Medical morning. Branch busPIRone 2021-09 Yes [id number] 10mg Take 1 [facility] 10 mg 0-19 tablet by [facility] of tablet 00:00: mouth 2 (two) Medical times Branch daily as needed for Other (anxiety). cetirizine 2021-09 Yes [id number] 10mg Take 1 [facility] (ZYRTEC) 10 0-19 tablet by [facility] tablet 00:[place]: [place] the Medical morning. [facility] famotidine 2021-09 Yes [id number] 40mg Take 1 [facility] 40 mg 0-19 tablet by [facility] of tablet 00:00: mouth in [place] 00 the Medical morning. Branch busPIRone 2021-09 Yes [id number] 10mg Take 1 [facility] r[facility] 10 mg 0-19 tablet by [facility] of tablet 00:00: mouth 2 [place] (two) Medical times [place] daily as needed for Other (anxiety). cetirizine 2021-09 Yes [id number] 10mg Take 1 [facility] (ZYRTEC) 10 0-19 tablet by [facility] mg tablet 00:00: mouth in [place] the Medical morning. Branch famotidine 2021-09 Yes [id number] 40mg Take 1 [facility] 40 mg 0-19 tablet by [facility] of tablet 00:00: mouth in [place] 00 the Medical morning. Branch busPIRone 2021-09 Yes [id number] 10mg Take 1 [facility] r[facility] 10 mg 0-19 tablet by [facility] of tablet 00:00: mouth 2 [place] (two) Medical times [place] daily as needed for Other (anxiety). cetirizine 2021-09 Yes [id number] 10mg Take 1 [facility] (ZYRTEC) 10 0-19 tablet by [facility] of mg tablet 00:00: mouth in [facility] the Medical morning. Branch famotidine 2021-09 Yes [id number] 40mg Take 1 [facility] 40 mg 0-19 tablet by [facility] of tablet 00:00: mouth in [place] 00 the Medical morning. Branch busPIRone 2021-09 Yes [id number] 10mg Take 1 Un r[facility] 10 mg 0-19 tablet by [facility] of tablet 00:00: mouth 2 [place] (two) Medical times [place] daily as needed for Other (anxiety). cetirizine 2021-09 Yes [id number] 10mg Take 1 [facility] (ZYRTEC) 10 0-19 tablet by [facility] of mg tablet 00:00: mouth in [facility] 00 the Medical morning. Branch famotidine 2021-09 Yes [id number] 40mg Take 1 [facility] 40 mg 0-19 tablet by [facility] of tablet 00:00: mouth in [place] 00 the Medical morning. Branch busPIRone 2021-09 Yes [id number] 10mg Take 1 Un r[facility] 10 mg 0-19 tablet by [facility] of tablet 00:00: mouth 2 (two) Medical times Branch daily as needed for Other (anxiety). cetirizine 2021-09 Yes [id number] 10mg Take 1 [facility] (ZYRTEC) 10 0-19 tablet by [facility] mg tablet 00:00: mouth [place] 00 the Medical morning. Branch famotidine 2021-09 Yes [id number] 40mg Take 1 [facility] 40 mg 0-19 tablet by [facility] of tablet 00:00: mouth in [place] 00 the Medical morning. Branch busPIRone 2021-09 Yes [id number] 10mg Take 1 Un rory 10 mg 0-19 tablet by [facility] of tablet 00:00: mouth 2 (two) Medical times Branch daily as needed for Other (anxiety). cetirizine 2021-09 Yes [id number] 10mg Take 1 [facility] (ZYRTEC) 10 0-19 tablet by [facility] mg tablet 00:00: mouth in [place] 00 the Medical morning. Branch famotidine 2021-09 Yes [id number] 40mg Take 1 [facility] 40 mg 0-19 tablet by [facility] of tablet 00:00: mouth in [place] 00 the Medical morning. Branch busPIRone 2021-09 Yes [id number] 10mg Take 1 Un rory 10 mg 0-19 tablet by [facility] of tablet 00:00: mouth 2 (two) Medical times Branch daily as needed for Other (anxiety). cetirizine 2021-09 Yes [id number] 10mg Take 1 [facility] (ZYRTEC) 10 0-19 tablet by [facility] mg tablet 00:00: mouth in [place] 00 the Medical morning. Branch famotidine 2021-09 Yes [id number] 40mg Take 1 [facility] 40 mg 0-19 tablet by [facility] of tablet 00:00: mouth in [place] 00 the Medical morning. Branch busPIRone 2021-09 Yes [id number] 10mg Take 1 Un rory 10 mg 0-19 tablet by [facility] of tablet 00:00: mouth 2 00 (two) Medical times Branch daily as needed for Other (anxiety). cetirizine 2021-09 Yes [id number] 10mg Take 1 [facility] (ZYRTEC) 10 0-19 tablet by [facility] mg tablet 00:00: mouth in [place] 00 the Medical morning. Branch famotidine 2021-09 Yes [id number] 40mg Take 1 [facility] 40 mg 0-19 tablet by [facility] of tablet 00:00: mouth in [place] 00 the Medical morning. Branch busPIRone 2021-09 Yes [id number] 10mg Take 1 Un rory 10 mg 0-19 tablet by [facility] of tablet 00:00: mouth 2 [place] (two) Medical times Branch daily as needed for Other (anxiety). cetirizine 2021-09 Yes [id number] 10mg Take 1 [facility] (ZYRTEC) 10 0-19 tablet by [facility] mg tablet 00:00: mouth in [place] 00 the Medical morning. Branch famotidine 2021-09 Yes [id number] 40mg Take 1 [facility] 40 mg 0-19 tablet by [facility] of tablet 00:00: mouth in [place] 00 the Medical morning. Branch busPIRone 2021-09 Yes [id number] 10mg Take 1 [facility] rory 10 mg 0-19 tablet by [facility] of tablet 00:00: mouth 2 [place] (two) Medical times Branch daily as needed for Other (anxiety). cetirizine 2021-09 Yes [id number] 10mg Take 1 [facility] (ZYRTEC) 10 0-19 tablet by [facility] mg tablet 00:00: mouth in [place] the Medical morning. Branch famotidine 2021-09 Yes [id number] 40mg Take 1 [facility] 40 mg 0-19 tablet by [facility] of tablet 00:00: mouth in [place] 00 the Medical morning. Branch busPIRone 2021-09 Yes [id number] 10mg Take 1 Un rory 10 mg 0-19 tablet by it[facility] of tablet 00:00: mouth 2 [place] (two) Medical times Branch daily as needed for Other (anxiety). cetirizine 2021-09 Yes [id number] 10mg Take 1 [facility] (ZYRTEC) 10 0-19 tablet by [facility] of mg tablet 00:00: mouth in [place] 00 the Medical morning. Branch famotidine 2021-09 Yes [id number] 40mg Take 1 [facility] 40 mg 0-19 tablet by [facility] of tablet 00:00: mouth in [place] 00 the Medical morning. Branch busPIRone 2021-09 Yes [id number] 10mg Take 1 Un rory 10 mg 0-19 tablet by it[facility] of tablet 00:00: mouth 2 (two) Medical times Branch daily as needed for Other (anxiety). cetirizine 2021-09 Yes [id number] 10mg Take 1 [facility] (ZYRTEC) 10 0-19 tablet by [facility] mg tablet 00:00: mouth in [place] 00 the Medical morning. Branch famotidine 2021-09 Yes [id number] 40mg Take 1 [facility] 40 mg 0-19 tablet by [facility] of tablet 00:00: mouth in [place] 00 the Medical morning. Branch busPIRone 2021-09 Yes [id number] 10mg Take 1 Un rory 10 mg 0-19 tablet by [facility] of tablet 00:00: mouth 2 (two) Medical times Branch daily as needed for Other (anxiety). cetirizine 2021-09 Yes [id number] 10mg Take 1 [facility] (ZYRTEC) 10 0-19 tablet by [facility] mg tablet 00:00: [place] the Medical morning. Branch famotidine 2021-09 Yes [id number] 40mg Take 1 [facility] 40 mg 0-19 tablet by [facility] of tablet 00:00: mouth in [place] 00 the Medical morning. Branch busPIRone 2021-09 Yes [id number] 10mg Take 1 Un rory 10 mg 0-19 tablet by [facility] of tablet 00:00: mouth 2 (two) Medical times Branch daily as needed for Other (anxiety). cetirizine 2021-09 Yes [id number] 10mg Take 1 [facility] (ZYRTEC) 10 0-19 tablet by [facility] mg tablet 00:00: mouth in [place] 00 the Medical morning. Branch famotidine 2021-09 Yes [id number] 40mg Take 1 [facility] 40 mg 0-19 tablet by [facility] of tablet 00:00: mouth in [place] 00 the Medical morning. Branch busPIRone 2021-09 Yes [id number] 10mg Take 1 Un rory 10 mg 0-19 tablet by [facility] of tablet 00:00: mouth 2 [place] 00 (two) Medical times Branch daily as needed for Other (anxiety). cetirizine 2021-09 Yes [id number] 10mg Take 1 [facility] (ZYRTEC) 10 0-19 tablet by [facility] mg tablet 00:00: mouth in [place] 00 the Medical morning. Branch famotidine 2021-09 Yes [id number] 40mg Take 1 [facility] 40 mg 0-19 tablet by [facility] of tablet 00:00: mouth in [place] 00 the Medical morning. Branch busPIRone 2021-09 Yes [id number] 10mg Take 1 Un rory 10 mg 0-19 tablet by [facility] of tablet 00:00: mouth 2 [place] 00 (two) Medical times Branch daily as needed for Other (anxiety). cetirizine 2021-09 Yes [id number] 10mg Take 1 [facility] (ZYRTEC) 10 0-19 tablet by [facility] of mg tablet 00:00: mouth in [place] 00 the Medical morning. Branch famotidine 2021-09 Yes [id number] 40mg Take 1 [facility] 40 mg 0-19 tablet by [facility] of tablet 00:00: mouth in [place] 00 the Medical morning. Branch busPIRone 2021-09 Yes [id number] 10mg Take 1 Un rory 10 mg 0-19 tablet by [facility] of tablet 00:00: mouth 2 [place] (two) Medical times Branch daily as needed for Other (anxiety). cetirizine 2021-09 Yes [id number] 10mg Take 1 [facility] (ZYRTEC) 10 0-19 tablet by [facility] mg tablet 00:00: mouth in [place] 00 the Medical morning. Branch famotidine 2021-09 Yes [id number] 40mg Take 1 [facility] 40 mg 0-19 tablet by [facility] of tablet 00:00: mouth in [place] 00 the Medical morning. Branch busPIRone 2021-09 Yes [id number] 10mg Take 1 Un rory 10 mg 0-19 tablet by [facility] of tablet 00:00: mouth 2 [place] 00 (two) Medical times Branch daily as needed for Other (anxiety). cetirizine 2021-09 Yes [id number] 10mg Take 1 [facility] (ZYRTEC) 10 0-19 tablet by [facility] mg tablet 00:00: mouth in [place] 00 the Medical morning. Branch famotidine 2021-09 Yes [id number] 40mg Take 1 [facility] 40 mg 0-19 tablet by [facility] of tablet 00:00: mouth in [place] 00 the Medical morning. Branch SERTraline 2022-0 Yes [id number] 50mg Take 1 [facility] (ZOLOFT) 50 9-22 tablet by [facility] mg tablet 00:00: mouth in [place] 00 the Medical morning. Branch SERTraline 2021-0 Yes [id number] 50mg Take 1 [facility] (ZOLOFT) 50 9-22 tablet by [facility] of mg tablet 00:00: mouth in [place] 00 the Medical morning. Branch SERTraline 2021-0 Yes [id number] 50mg Take 1 [facility] (ZOLOFT) 50 9-22 tablet by [facility] of mg tablet 00:00: mouth in [place] 00 the Medical morning. Branch SERTraline 2021-0 Yes [id number] 50mg Take 1 [facility] (ZOLOFT) 50 9-22 tablet by [facility] mg tablet 00:00: mouth in [place] 00 the Medical morning. Branch SERTraline 2021-0 Yes [id number] 50mg Take 1 [facility] (ZOLOFT) 50 9-22 tablet by [facility] mg tablet 00:00: mouth [place] the Medical morning. Branch SERTraline 0 Yes [id number] 50mg Take 1 [facility] (ZOLOFT) 50 9-22 tablet by [facility] of mg tablet 00:00: mouth in [place] 00 the Medical morning. Branch SERTraline 0 Yes [id number] 50mg Take 1 [facility] (ZOLOFT) 50 9-22 tablet by [facility] of mg tablet 00:00: mouth in [place] 00 the Medical morning. Branch SERTraline 2021-0 Yes [id number] 50mg Take 1 [facility] (ZOLOFT) 50 9-22 tablet by [facility] of mg tablet 00:00: mouth in [place] 00 the Medical morning. Branch SERTraline 2021-0 Yes [id number] 50mg Take 1 [facility] (ZOLOFT) 50 9-22 tablet by [facility] of mg tablet 00:00: mouth in [place] 00 the Medical morning. Branch SERTraline 2021-0 Yes [id number] 50mg Take 1 [facility] (ZOLOFT) 50 9-22 tablet by [facility] of mg tablet 00:00: mouth in [place] 00 the Medical morning. Branch SERTraline 2021-0 Yes [id number] 50mg Take 1 [facility] (ZOLOFT) 50 9-22 tablet by [facility] of mg tablet 00:00: mouth in [place] 00 the Medical morning. Branch SERTraline 2021-0 Yes [id number] 50mg Take 1 [facility] (ZOLOFT) 50 9-22 tablet by [facility] of mg tablet 00:00: mouth in [place] 00 the Medical morning. Branch SERTraline 2021-0 Yes [id number] 50mg Take 1 [facility] (ZOLOFT) 50 9-22 tablet by [facility] mg tablet 00:00: mouth in [place] 00 the Medical morning. Branch SERTraline 2021-0 Yes [id number] 50mg Take 1 [facility] (ZOLOFT) 50 9-22 tablet by [facility] of mg tablet 00:00: mouth in [place] 00 the Medical morning. Branch SERTraline 0 Yes [id number] 50mg Take 1 [facility] (ZOLOFT) 50 9-22 tablet by [facility] of mg tablet 00:00: mouth in [place] 00 the Medical morning. Branch SERTraline 0 Yes [id number] 50mg Take 1 [facility] (ZOLOFT) 50 9-22 tablet by [facility] of mg tablet 00:00: mouth in [place] 00 the Medical morning. Branch SERTraline 0 Yes [id number] 50mg Take 1 [facility] (ZOLOFT) 50 9-22 tablet by [facility] mg tablet 00:00: mouth in [place] 00 the Medical morning. Branch SERTraline 2021-0 Yes [id number] 50mg Take 1 [facility] (ZOLOFT) 50 9-22 tablet by [facility] mg tablet 00:00: mouth in [place] 00 the Medical morning. Branch SERTraline 2021-0 Yes [id number] 50mg Take 1 [facility] (ZOLOFT) 50 9-22 tablet by [facility] of mg tablet 00:00: mouth in [place] 00 the Medical morning. Branch SERTraline 2021-0 Yes [id number] 50mg Take 1 [facility] (ZOLOFT) 50 9-22 tablet by [facility] of mg tablet 00:00: mouth in [place] 00 the Medical morning. Branch SERTraline 2021-0 Yes [id number] 50mg Take 1 [facility] (ZOLOFT) 50 9-22 tablet by [facility] of mg tablet 00:00: mouth in [place] 00 the Medical morning. Branch SERTraline 2021-0 Yes [id number] 50mg Take 1 [facility] (ZOLOFT) 50 9-22 tablet by [facility] of mg tablet 00:00: mouth in [place] 00 the Medical morning. Branch SERTraline 2021-0 Yes [id number] 50mg Take 1 [facility] (ZOLOFT) 50 9-22 tablet by [facility] of mg tablet 00:00: mouth in [place] 00 the Medical morning. Branch SERTraline 2021-0 Yes [id number] 50mg Take 1 [facility] (ZOLOFT) 50 9-22 tablet by [facility] of mg tablet 00:00: mouth in [place] 00 the Medical morning. Branch SERTraline 2021-0 Yes [id number] 50mg Take 1 [facility] (ZOLOFT) 50 9-22 tablet by [facility] of mg tablet 00:00: mouth in [place] 00 the Medical morning. Branch SERTraline 2021-0 Yes [id number] 50mg Take 1 [facility] (ZOLOFT) 50 9-22 tablet by [facility] of mg tablet 00:00: mouth in [place] 00 the Medical morning. Branch SERTraline 2021-0 Yes [id number] 50mg Take 1 [facility] (ZOLOFT) 50 9-22 tablet by [facility] of mg tablet 00:00: mouth in [place] 00 the Medical morning. Branch SERTraline 2021-0 Yes [id number] 50mg Take 1 [facility] (ZOLOFT) 50 9-22 tablet by [facility] of mg tablet 00:00: mouth in [place] 00 the Medical morning. Branch SERTraline 2021-0 Yes [id number] 50mg Take 1 [facility] (ZOLOFT) 50 9-22 tablet by [facility] of mg tablet 00:00: mouth in [place] 00 the Medical morning. Branch SERTraline 2021-0 Yes [id number] 50mg Take 1 [facility] (ZOLOFT) 50 9-22 tablet by [facility] of mg tablet 00:00: mouth in [place] 00 the Medical morning. Branch SERTraline 2021-0 Yes [id number] 50mg Take 1 [facility] (ZOLOFT) 50 9-22 tablet by [facility] mg tablet 00:00: mouth in [place] 00 the Medical morning. Branch SERTraline 0 Yes [id number] 50mg Take 1 [facility] (ZOLOFT) 50 9-22 tablet by [facility] of mg tablet 00:00: mouth in [place] 00 the Medical morning. Branch SERTraline 0 Yes [id number] 50mg Take 1 [facility] (ZOLOFT) 50 9-22 tablet by [facility] of mg tablet 00:00: mouth in [place] 00 the Medical morning. Branch SERTraline 2021-0 Yes [id number] 50mg Take 1 [facility] (ZOLOFT) 50 9-22 tablet by [facility] of mg tablet 00:00: mouth in [place] 00 the Medical morning. Branch SERTraline 0 Yes [id number] 50mg Take 1 [facility] (ZOLOFT) 50 9-22 tablet by [facility] of mg tablet 00:00: mouth in [place] 00 the Medical morning. Branch SERTraline 0 Yes [id number] 50mg Take 1 [facility] (ZOLOFT) 50 9-22 tablet by [facility] of mg tablet 00:00: mouth in [place] 00 the Medical morning. Branch SERTraline 0 Yes [id number] 50mg Take 1 [facility] (ZOLOFT) 50 9-22 tablet by [facility] of mg tablet 00:00: mouth in [place] 00 the Medical morning. Branch SERTraline 0 Yes [id number] 50mg Take 1 [facility] (ZOLOFT) 50 9-22 tablet by [facility] of mg tablet 00:00: mouth in [place] 00 the Medical morning. Branch SERTraline 0 Yes [id number] 50mg Take 1 [facility] (ZOLOFT) 50 9-22 tablet by [facility] mg tablet 00:00: mouth in [place] 00 the Medical morning. Branch SERTraline 2021-0 2021- No [id number] 50mg Take 1 [facility] (ZOLOFT) 50 9-22 12-16 tablet by it y of mg tablet 00:00: 00:00 mouth in [place] 00 :00 the Medical morning. Branch SERTraline 0 2- No [id number] 50mg Take 1 [facility] (ZOLOFT) 50 9-22 12-16 tablet by it y of mg tablet 00:00: 00:00 mouth in [place] 00 :00 the Medical morning. Branch SERTraline 2021-2021- No [id number] 50mg Take 1 [facility] (ZOLOFT) 50 06-17 12-16 tablet by it y of mg tablet 00:00: 00:00 mouth in [place] 00 :00 the Medical morning. Branch SERTraline 0 2021- No [id number] 50mg Take 1 [facility] (ZOLOFT) 50 06-17 12-16 tablet by it y of mg tablet 00:00: 00:00 mouth in [place] 00 :00 the Medical morning. Branch traZODone 0 Yes [id number] 50mg Take 1 Un r[facility] 50 mg 8-25 tablet by ity of tablet 00:00: mouth at [place] 00 bedtime as Medical needed for Branch Insomnia. traZODone 0 Yes [id number] 50mg Take 1 Un r[facility] 50 mg 8-25 tablet by ity of tablet 00:00: mouth at [place] 00 bedtime as Medical needed for Branch Insomnia. traZODone 0 Yes [id number] 50mg Take 1 Un r[facility] 50 mg 8-25 tablet by [facility]y of tablet 00:00: mouth at [place] 00 bedtime as Medical needed for Branch Insomnia. traZODone 0 Yes [id number] 50mg Take 1 Un r[facility] 50 mg 8-25 tablet by ity of tablet 00:00: mouth at [place] 00 bedtime as Medical needed for Branch Insomnia. traZODone 0 Yes [id number] 50mg Take 1 Un r[facility] 50 mg 8-25 tablet by ity of tablet 00:00: mouth at [place] 00 bedtime as Medical needed for Branch Insomnia. traZODone 0 Yes [id number] 50mg Take 1 [facility] 50 mg 8-25 tablet by ity of tablet 00:00: mouth at [place] 00 bedtime as Medical needed for Branch Insomnia. traZODone 0 Yes [id number] 50mg Take 1 Un r[facility] 50 mg 8-25 tablet by ity of tablet 00:00: mouth at [place] 00 bedtime as Medical needed for Branch Insomnia. traZODone 2021-0 Yes [id number] 50mg Take 1 Un r[facility] 50 mg 8-25 tablet by ity of tablet 00:00: mouth at [place] 00 bedtime as Medical needed for Branch Insomnia. traZODone 0 Yes [id number] 50mg Take 1 Un r[facility] 50 mg 8-25 tablet by ity of tablet 00:00: mouth at [place] 00 bedtime as Medical needed for Branch Insomnia. traZODone 0 Yes [id number] 50mg Take 1 Un r[facility] 50 mg 8-25 tablet by ity of tablet 00:00: mouth at [place] 00 bedtime as Medical needed for Branch Insomnia. traZODone 0 Yes [id number] 50mg Take 1 [facility] r[facility] 50 mg 8-25 tablet by ity of tablet 00:00: mouth at [place] 00 bedtime as Medical needed for Branch Insomnia. traZODone 0 Yes [id number] 50mg Take 1 Un r[facility] 50 mg 8-25 tablet by ity of tablet 00:00: mouth at [place] 00 bedtime as Medical needed for Branch Insomnia. traZODone 0 Yes [id number] 50mg Take 1 Un r[facility] 50 mg 8-25 tablet by ity of tablet 00:00: mouth at [place] bedtime as Medical needed for Branch Insomnia. traZODone 0 Yes [id number] 50mg Take 1 Un r[facility] 50 mg 8-25 tablet by ity of tablet 00:00: mouth at [place] 00 bedtime as Medical needed for Branch Insomnia. traZODone 0 Yes [id number] 50mg Take 1 Un r[facility] 50 mg 8-25 tablet by ity of tablet 00:00: mouth at [place] bedtime as Medical needed for Branch Insomnia. traZODone 0 Yes [id number] 50mg Take 1 Un r[facility] 50 mg 8-25 tablet by ity of tablet 00:00: mouth at [place] 00 bedtime as Medical needed for Branch Insomnia. traZODone 0 Yes [id number] 50mg Take 1 Un r[facility] 50 mg 8-25 tablet by ity of tablet 00:00: mouth at [place] 00 bedtime as Medical needed for Branch Insomnia. traZODone 2021-0 Yes [id number] 50mg Take 1 Un r[facility] 50 mg 8-25 tablet by ity of tablet 00:00: mouth at [place] [address] bedtime as Medical needed for Branch Insomnia. traZODone 2021-0 Yes [id number] 50mg Take 1 Un r[facility] 50 mg 8-25 tablet by ity of tablet 00:00: mouth at [place] 00 bedtime as Medical needed for Branch Insomnia. traZODone 0 Yes [id number] 50mg Take 1 Un [facility] 50 mg 8-25 tablet by [facility]y of tablet 00:00: mouth at [place] 00 bedtime as Medical needed for Branch Insomnia. traZODone 0 Yes [id number] 50mg Take 1 [facility] 50 mg 8-25 tablet by [facility]y of tablet 00:00: mouth at [place] 00 bedtime as Medical needed for Branch Insomnia. traZODone 0 Yes [id number] 50mg Take 1 [facility] 50 mg 8-25 tablet by ity of tablet 00:00: mouth at [place] 00 bedtime as Medical needed for Branch Insomnia. traZODone 0 Yes [id number] 50mg Take 1 [facility] 50 mg 8-25 tablet by ity of tablet 00:00: mouth at [place] [address] bedtime as Medical needed for Branch Insomnia. traZODone 0 Yes [id number] 50mg Take 1 [facility] 50 mg 8-25 tablet by [facility]y of tablet 00:00: mouth at [place] [address] bedtime as Medical needed for Branch Insomnia. traZODone 0 Yes [id number] 50mg Take 1 [facility] 50 mg 8-25 tablet by [facility]y of tablet 00:00: mouth at [place] [address] bedtime as Medical needed for Branch Insomnia. traZODone 0 Yes [id number] 50mg Take 1 [facility] 50 mg 8-25 tablet by [facility]y of tablet 00:00: mouth at [place] [address] bedtime as Medical needed for Branch Insomnia. traZODone 0 Yes [id number] 50mg Take 1 [facility] 50 mg 8-25 tablet by [facility]y of tablet 00:00: mouth at [place] [address] bedtime as Medical needed for Branch Insomnia. traZODone 2021-0 Yes [id number] 50mg Take 1 [facility] 50 mg 8-25 tablet by [facility]y of tablet 00:00: mouth at [place] 00 bedtime as Medical needed for Branch Insomnia. traZODone 2021-0 Yes [id number] 50mg Take 1 [facility] 50 mg 8-25 tablet by [facility]y of tablet 00:00: mouth at [place] [address] bedtime as Medical needed for Branch Insomnia. traZODone 2022-0 Yes [id number] 50mg Take 1 Un [facility] 50 mg 8-25 tablet by [facility]y of tablet 00:00: mouth at [place] 00 bedtime as Medical needed for Branch Insomnia. traZODone 0 Yes [id number] 50mg Take 1 Un [facility] 50 mg 8-25 tablet by [facility]y of tablet 00:00: mouth at [place] 00 bedtime as Medical needed for Branch Insomnia. traZODone 0 Yes [id number] 50mg Take 1 [facility] 50 mg 8-25 tablet by [facility]y of tablet 00:00: mouth at [place] 00 bedtime as Medical needed for Branch Insomnia. traZODone 0 Yes [id number] 50mg Take 1 [facility] 50 mg 8-25 tablet by [facility]y of tablet 00:00: mouth at [place] 00 bedtime as Medical needed for Branch Insomnia. traZODone Yes [id number] 50mg Take 1 [facility] 50 mg 8-25 tablet by [facility]y of tablet 00:00: mouth at [place] [address] bedtime as Medical needed for Branch Insomnia. traZODone 0 Yes [id number] 50mg Take 1 [facility] 50 mg 8-25 tablet by [facility]y of tablet 00:00: mouth at [place] [address] bedtime as Medical needed for Branch Insomnia. traZODone 0 Yes [id number] 50mg Take 1 [facility] 50 mg 8-25 tablet by [facility]y of tablet 00:00: mouth at [place] [address] bedtime as Medical needed for Branch Insomnia. traZODone 0 Yes [id number] 50mg Take 1 [facility] 50 mg 8-25 tablet by ity of tablet 00:00: mouth at [place] 00 bedtime as Medical needed for Branch Insomnia. traZODone 0 Yes [id number] 50mg Take 1 Un [facility] 50 mg 8-25 tablet by [facility]y of tablet 00:00: mouth at [place] 00 bedtime as Medical needed for Branch Insomnia. traZODone 0 Yes [id number] 50mg Take 1 Un [facility] 50 mg 8-25 tablet by [facility]y of tablet 00:00: mouth at [place] 00 bedtime as Medical needed for Branch Insomnia. traZODone 0 Yes [id number] 50mg Take 1 [facility] 50 mg 8-25 tablet by [facility]y of tablet 00:00: mouth at [place] 00 bedtime as Medical needed for Branch Insomnia. traZODone 0 Yes [id number] 50mg Take 1 [facility] 50 mg 8-25 tablet by [facility]y of tablet 00:00: mouth at [place] 00 bedtime as Medical needed for Branch Insomnia. traZODone 0 Yes [id number] 50mg Take 1 [facility] 50 mg 8-25 tablet by [facility]y of tablet 00:00: mouth at [place] 00 bedtime as Medical needed for Branch Insomnia. traZODone 0 Yes [id number] 50mg Take 1 [facility] 50 mg 8-25 tablet by [facility]y of tablet 00:00: mouth at [place] 00 bedtime as Medical needed for Branch Insomnia. traZODone 0 Yes [id number] 50mg Take 1 [facility] 50 mg 8-25 tablet by [facility]y of tablet 00:00: mouth at [place] bedtime as Medical needed for Branch Insomnia. traZODone Yes [id number] 50mg Take 1 Un [facility] 50 mg 8-25 tablet by [facility]y of tablet 00:00: mouth at [place] bedtime as Medical needed for Branch Insomnia. traZODone 0 Yes [id number] 50mg Take 1 [facility] 50 mg 8-25 tablet by ity of tablet 00:00: mouth at [place] [address] bedtime as Medical needed for Branch Insomnia. traZODone 0 Yes [id number] 50mg Take 1 [facility] 50 mg 8-25 tablet by [facility] of tablet 00:00: mouth at [place] bedtime as Medical needed for Branch Insomnia. traZODone 0 Yes [id number] 50mg Take 1 [facility] 50 mg 8-25 tablet by [facility] of tablet 00:00: mouth at [place] bedtime as Medical needed for Branch Insomnia. traZODone 0 Yes [id number] 50mg Take 1 [facility] 50 mg 8-25 tablet by [facility]y of tablet 00:00: mouth at [place] 00 bedtime as Medical needed for Branch Insomnia. traZODone 0 Yes [id number] 50mg Take 1 [facility] 50 mg 8-25 tablet by [facility]y of tablet 00:00: mouth at [place] [address] bedtime as Medical needed for Branch Insomnia. traZODone 0 Yes [id number] 50mg Take 1 [facility] 50 mg 8-25 tablet by [facility] of tablet 00:00: mouth at [place] 00 bedtime as Medical needed for Branch Insomnia. traZODone Yes [id number] 50mg Take 1 [facility] 50 mg 8-25 tablet by [facility] of tablet 00:00: mouth at [place] 00 bedtime as Medical needed for Branch Insomnia. traZODone Yes [id number] 50mg Take 1 [facility] 50 mg 8-25 tablet by [facility] of tablet 00:00: mouth at [place] 00 bedtime as Medical needed for Branch Insomnia. traZODone Yes [id number] 50mg Take 1 [facility] 50 mg 8-25 tablet by ity of tablet 00:00: mouth at [place] 00 bedtime as Medical needed for Branch Insomnia. busPIRone 2- No [id number] 10mg Take 1 U nivers 10 mg 8-25 10-10 tablet by ity of tablet 00:00: 04:59 mouth 2 [place] 00 :00 (two) Medical times Branch daily as needed for Other (anxiety) for up to 45 days. busPIRone 2- No [id number] 10mg Take 1 U nivers 10 mg 8-25 10-10 tablet by ity of tablet 00:00: 04:59 mouth 2 [place] 00 :00 (two) Medical times Branch daily as needed for Other (anxiety) for up to 45 days. busPIRone 2- No [id number] 10mg Take 1 U nivers 10 mg 8-25 10-10 tablet by ity of tablet 00:00: 04:59 mouth 2 [place] 00 :00 (two) Medical times Branch daily as needed for Other (anxiety) for up to 45 days. busPIRone 2- No [id number] 10mg Take 1 U nivers 10 mg 8-25 10-10 tablet by ity of tablet 00:00: 04:59 mouth 2 [place] 00 :00 (two) Medical times Branch daily as needed for Other (anxiety) for up to 45 days. busPIRone 2- No [id number] 10mg Take 1 U nivers 10 mg 8-25 10-10 tablet by ity of tablet 00:00: 04:59 mouth 2 [place] 00 :00 (two) Medical times Branch daily as needed for Other (anxiety) for up to 45 days. pantoprazol 2021-2021- No [id number] 40mg Take 1 [facility] e 40 mg EC 6-27 08-25 tablet by ity of tablet 00:00: 00:00 mouth [place] 00 :00 daily. Medical Branch pantoprazol 2021-0 Yes [id number] 40mg Take 1 U nivers e 40 mg EC 6-16 tablet by [facility]y of tablet 00:00: mouth [place] 00 daily. Medical Branch pantoprazol 2021-0 Yes [id number] 40mg Take 1 U nivers e 40 mg EC 6-16 tablet by [facility]y of tablet 00:00: mouth [place] 00 daily. Medical Branch pantoprazol 2021-0 Yes [id number] 40mg Take 1 U nivers e 40 mg EC 6-16 tablet by [facility]y of tablet 00:00: mouth [place] 00 daily. Medical Branch pantoprazol 2021-0 Yes [id number] 40mg Take 1 U nivers e 40 mg EC 6-16 tablet by ity of tablet 00:00: mouth [place] 00 daily. Medical Branch pantoprazol 2021-0 Yes [id number] 40mg Take 1 U nivers e 40 mg EC 6-16 tablet by [facility]y of tablet 00:00: mouth [place] 00 daily. Medical Branch pantoprazol 2021-0 Yes [id number] 40mg Take 1 U nivers e 40 mg EC 6-16 tablet by [facility] of tablet 00:00: mouth [place] 00 daily. Medical Branch pantoprazol 2021-0 Yes [id number] 40mg Take 1 U nivers e 40 mg EC 6-16 tablet by [facility] of tablet 00:00: mouth [place] 00 daily. Medical Branch pantoprazol 2021-0 Yes [id number] 40mg Take 1 U nivers e 40 mg EC 6-16 tablet by [facility]y of tablet 00:00: mouth [place] 00 daily. Medical Branch pantoprazol 2021-0 Yes [id number] 40mg Take 1 [facility] nivers e 40 mg EC 6-16 tablet by [facility] of tablet 00:00: mouth [place] 00 daily. Medical Branch pantoprazol 2021-0 Yes [id number] 40mg Take 1 U nivers e 40 mg EC 6-16 tablet by [facility]y of tablet 00:00: mouth [place] 00 daily. Medical Branch pantoprazol 2021-0 Yes [id number] 40mg Take 1 U nivers e 40 mg EC 6-16 tablet by [facility]y of tablet 00:00: mouth [place] 00 daily. Medical Branch pantoprazol 2021-0 Yes [id number] 40mg Take 1 U nivers e 40 mg EC 6-16 tablet by [facility]y of tablet 00:00: mouth [place] 00 daily. Medical Branch pantoprazol 2021-0 Yes [id number] 40mg Take 1 [facility]ivers e 40 mg EC 6-16 tablet by [facility] of tablet 00:00: mouth [place] 00 daily. Medical Branch pantoprazol 2021-0 Yes [id number] 40mg Take 1 [facility] nivers e 40 mg EC 6-16 tablet by [facility] of tablet 00:00: mouth [place] 00 daily. Medical Branch pantoprazol 2021-0 Yes [id number] 40mg Take 1 [facility] nivers e 40 mg EC 6-16 tablet by ity of tablet 00:00: mouth [place] 00 daily. Medical Branch pantoprazol 2021-0 Yes [id number] 40mg Take 1 U nivers e 40 mg EC 6-16 tablet by [facility]y of tablet 00:00: mouth [place] 00 daily. Medical Branch pantoprazol 2021-0 Yes [id number] 40mg Take 1 U nivers e 40 mg EC 6-16 tablet by ity of tablet 00:00: mouth [place] 00 daily. Medical Branch pantoprazol 2021-0 Yes [id number] 40mg Take 1 U nivers e 40 mg EC 6-16 tablet by ity of tablet 00:00: mouth [place] 00 daily. Medical Branch pantoprazol 2021-0 Yes [id number] 40mg Take 1 U nivers e 40 mg EC 6-16 tablet by ity of tablet 00:00: mouth [place] 00 daily. Medical Branch pantoprazol 2021-0 Yes [id number] 40mg Take 1 U [facility]ivers e 40 mg EC 6-16 tablet by ity of tablet 00:00: mouth [place] 00 daily. Medical Branch pantoprazol 2021-0 Yes [id number] 40mg Take 1 U nivers e 40 mg EC 6-16 tablet by ity of tablet 00:00: mouth [place] 00 daily. Medical Branch pantoprazol 2021-0 Yes [id number] 40mg Take 1 U nivers e 40 mg EC 6-16 tablet by ity of tablet 00:00: mouth [place] 00 daily. Medical Branch pantoprazol 2021-0 Yes [id number] 40mg Take 1 U nivers e 40 mg EC 6-16 tablet by ity of tablet 00:00: mouth [place] 00 daily. Medical Branch pantoprazol 2021-0 Yes [id number] 40mg Take 1 U nivers e 40 mg EC 6-16 tablet by ity of tablet 00:00: mouth [place] 00 daily. Medical Branch pantoprazol 2021-0 Yes [id number] 40mg Take 1 U nivers e 40 mg EC 6-16 tablet by ity of tablet 00:00: mouth [place] 00 daily. Medical Branch pantoprazol 2021-0 Yes [id number] 40mg Take 1 U nivers e 40 mg EC 6-16 tablet by ity of tablet 00:00: mouth [place] 00 daily. Medical Branch pantoprazol 2021-0 Yes [id number] 40mg Take 1 U nivers e 40 mg EC 6-16 tablet by ity of tablet 00:00: mouth [place] 00 daily. Medical Branch pantoprazol 2021-0 Yes [id number] 40mg Take 1 U nivers e 40 mg EC 6-16 tablet by ity of tablet 00:00: mouth [place] 00 daily. Medical Branch pantoprazol 2021-0 Yes [id number] 40mg Take 1 U nivers e 40 mg EC 6-16 tablet by ity of tablet 00:00: mouth [place] 00 daily. Medical Branch pantoprazol 2021-0 Yes [id number] 40mg Take 1 U nivers e 40 mg EC 6-16 tablet by ity of tablet 00:00: mouth [place] 00 daily. Medical Branch pantoprazol 2021-0 Yes [id number] 40mg Take 1 U nivers e 40 mg EC 6-16 tablet by ity of tablet 00:00: mouth [place] 00 daily. Medical Branch pantoprazol 2021-0 Yes [id number] 40mg Take 1 U nivers e 40 mg EC 6-16 tablet by ity of tablet 00:00: mouth [place] 00 daily. Medical Branch pantoprazol 2021-0 Yes [id number] 40mg Take 1 U nivers e 40 mg EC 6-16 tablet by ity of tablet 00:00: mouth [place] 00 daily. Medical Branch pantoprazol 2021-0 Yes [id number] 40mg Take 1 U nivers e 40 mg EC 6-16 tablet by ity of tablet 00:00: mouth [place] 00 daily. Medical Branch pantoprazol 2021-0 Yes [id number] 40mg Take 1 U nivers e 40 mg EC 6-16 tablet by ity of tablet 00:00: mouth [place] 00 daily. Medical Branch pantoprazol 2021-0 Yes [id number] 40mg Take 1 U nivers e 40 mg EC 6-16 tablet by ity of tablet 00:00: mouth [place] 00 daily. Medical Branch pantoprazol 2021-0 Yes [id number] 40mg Take 1 U nivers e 40 mg EC 6-16 tablet by ity of tablet 00:00: mouth [place] 00 daily. Medical Branch pantoprazol 2021-0 Yes [id number] 40mg Take 1 U nivers e 40 mg EC 6-16 tablet by ity of tablet 00:00: mouth [place] 00 daily. Medical Branch pantoprazol 2021-0 Yes [id number] 40mg Take 1 U nivers e 40 mg EC 6-16 tablet by ity of tablet 00:00: mouth [place] 00 daily. Medical Branch pantoprazol 2021-0 Yes [id number] 40mg Take 1 U nivers e 40 mg EC 6-16 tablet by ity of tablet 00:00: mouth [place] 00 daily. Medical Branch pantoprazol 2021-0 Yes [id number] 40mg Take 1 U nivers e 40 mg EC 6-16 tablet by ity of tablet 00:00: mouth [place] 00 daily. Medical Branch pantoprazol 2021-0 Yes [id number] 40mg Take 1 U nivers e 40 mg EC 6-16 tablet by ity of tablet 00:00: mouth [place] 00 daily. Medical Branch pantoprazol 2021-0 Yes [id number] 40mg Take 1 U nivers e 40 mg EC 6-16 tablet by ity of tablet 00:00: mouth [place] 00 daily. Medical Branch pantoprazol 2021-0 Yes [id number] 40mg Take 1 U nivers e 40 mg EC 6-16 tablet by ity of tablet 00:00: mouth [place] 00 daily. Medical Branch pantoprazol 2021-0 Yes [id number] 40mg Take 1 U nivers e 40 mg EC 6-16 tablet by ity of tablet 00:00: mouth [place] 00 daily. Medical Branch pantoprazol 2021-0 Yes [id number] 40mg Take 1 U nivers e 40 mg EC 6-16 tablet by ity of tablet 00:00: mouth [place] 00 daily. Medical Branch pantoprazol Yes [id number] 40mg Take 1 U nivers e 40 mg EC 6-16 tablet by ity of tablet 00:00: mouth [place] 00 daily. Medical Branch pantoprazol 0 Yes [id number] 40mg Take 1 U nivers e 40 mg EC 6-16 tablet by ity of tablet 00:00: mouth [place] 00 daily. Medical Branch pantoprazol 2021-0 Yes [id number] 40mg Take 1 U nivers e 40 mg EC 6-16 tablet by ity of tablet 00:00: mouth [place] 00 daily. Medical Branch pantoprazol Yes [id number] 40mg Take 1 U nivers e 40 mg EC 6-16 tablet by ity of tablet 00:00: mouth [place] 00 daily. Medical Branch pantoprazol Yes [id number] 40mg Take 1 U nivers e 40 mg EC 6-16 tablet by ity of tablet 00:00: mouth [place] 00 daily. Medical Branch pantoprazol 0 Yes [id number] 40mg Take 1 U nivers e 40 mg EC 6-16 tablet by ity of tablet 00:00: mouth [place] 00 daily. Medical Branch pantoprazol Yes [id number] 40mg Take 1 U nivers e 40 mg EC 6-16 tablet by ity of tablet 00:00: mouth [place] 00 daily. Medical Branch pantoprazol Yes [id number] 40mg Take 1 U nivers e 40 mg EC 6-16 tablet by ity of tablet 00:00: mouth [place] 00 daily. Medical Branch scopolamine 2021- No [id number] 1.5mg Apply 1 [facility] transdermal 03-02 Patch to ity of 1 mg over 3 00:00: 00:00 skin every patch 00 :00 72 Medical (seventy-t Branch wo) hours. clotrimazol 2021- No [id number] Apply to [facility] e-betametha 03-01 area(s) 2 it y of sone 00:00: 00:00 (two) [place] (LOTRISONE) 00 :00 times Medical cream daily. Branch methylPREDN 2021- No [id number] Take by [facility] ISolone 02-02 mouth ity of (MEDROL, 00:00: 00:00 SEE-INSTRU [place] MIKE,) 4 mg 00 :00 CTIONS. Medica l tablets follow Branch package directions bromphenira 2021- No [id number] 10mL Take 10 mL [facility] mine-pseudo 5-10 -25 by mouth 4 i ty of ephedrine-D 00:00: 00:00 (four) [place] as M (BROMFED 00 :00 times Medical DM) 2-30-10 daily as Bran ch mg/5 mL needed for syrup Congestion /Allergies or Cold symptoms. albuterol 2021- No [id number] 2{puff} Inhale 2 [facility] 90 5-10 08-25 Puffs ity of mcg/actuati 00:00: 00:00 every 6 [place] on inhaler 00 :00 (six) Medical hours as Branch needed for Wheezing, Shortness of Breath or Chest tightness. azelastine- 2021- No [id number] 1{spray Use 1 [facility] fluticasone 5-10 08-25 } [place] in ity of 137-50 00:00: 00:00 each [place] mcg/spray 00 :00 nostril 2 Medic al nasal spray (two) Branch times daily. promethazin 2021- No [id number] 5mL Take 5 mL [facility] e-dextromet 5-10 -25 by mouth ity of horphan 00:00: 00:00 every 4 [place] 6.25-15 00 :00 (four) Medical mg/5 mL hours as Branch syrup needed for Cough or Cold symptoms. diclofenac 2021-0 Yes [id number] 75mg Take 1 [facility] 75 mg EC 5-09 tablet by ity of tablet 00:00: mouth 2 [place] 00 (two) Medical times Branch daily with meals. diclofenac 2021-0 Yes [id number] 75mg Take 1 [facility] 75 mg EC 5-09 tablet by ity of tablet 00:00: mouth 2 [place] (two) Medical times Branch daily with meals. diclofenac 2021-0 Yes [id number] 75mg Take 1 [facility] 75 mg EC 5-09 tablet by ity of tablet 00:00: mouth 2 [place] 00 (two) Medical times Branch daily with meals. diclofenac 2021-0 Yes [id number] 75mg Take 1 [facility] 75 mg EC 5-09 tablet by ity of tablet 00:00: mouth [place] (two) Medical times Branch daily with meals. diclofenac 2022-0 Yes [id number] 75mg Take 1 [facility] 75 mg EC 5-09 tablet by ity of tablet 00:00: mouth [place] (two) Medical times Branch daily with meals. diclofenac 2022-0 Yes [id number] 75mg Take 1 [facility] 75 mg EC 5-09 tablet by ity of tablet 00:00: mouth [place] (two) Medical times Branch daily with meals. diclofenac 2022-0 Yes [id number] 75mg Take 1 [facility] 75 mg EC 5-09 tablet by ity of tablet 00:00: mouth [place] (two) Medical times Branch daily with meals. diclofenac 2022-0 Yes [id number] 75mg Take 1 [facility] 75 mg EC 5-09 tablet by ity of tablet 00:00: [facility] [place] (two) Medical times Branch daily with meals. diclofenac 2022-0 Yes [id number] 75mg Take 1 [facility] 75 mg EC 5-09 tablet by ity of tablet 00:00: mouth [address] [place] [address] (two) Medical times Branch daily with meals. diclofenac 2022-0 Yes [id number] 75mg Take 1 [facility] 75 mg EC 5-09 tablet by ity of tablet 00:00: mouth [place] (two) Medical times Branch daily with meals. diclofenac 2022-0 Yes [id number] 75mg Take 1 [facility] 75 mg EC 5-09 tablet by ity of tablet 00:00: [facility] [place] (two) Medical times Branch daily with meals. diclofenac 2022-0 Yes [id number] 75mg Take 1 [facility] 75 mg EC 5-09 tablet by ity of tablet 00:00: mouth [place] (two) Medical times Branch daily with meals. diclofenac 2022-0 Yes [id number] 75mg Take 1 [facility] 75 mg EC 5-09 tablet by ity of tablet 00:00: mouth [address] [place] [address] (two) Medical times Branch daily with meals. diclofenac 2022-0 Yes [id number] 75mg Take 1 [facility] 75 mg EC 5-09 tablet by ity of tablet 00:00: mouth [address] [place] [address] (two) Medical times Branch daily with meals. diclofenac 2022-0 Yes [id number] 75mg Take 1 [facility] 75 mg EC 5-09 tablet by ity of tablet 00:00: mouth 2 [place] 00 (two) Medical times Branch daily with meals. diclofenac 2022-0 Yes [id number] 75mg Take 1 [facility] 75 mg EC 5-09 tablet by ity of tablet 00:00: mouth [place] (two) Medical times Branch daily with meals. diclofenac 2022-0 Yes [id number] 75mg Take 1 [facility] 75 mg EC 5-09 tablet by ity of tablet 00:00: mouth [place] (two) Medical times Branch daily with meals. diclofenac 2022-0 Yes [id number] 75mg Take 1 [facility] 75 mg EC 5-09 tablet by ity of tablet 00:00: mouth [place] (two) Medical times Branch daily with meals. diclofenac 2022-0 Yes [id number] 75mg Take 1 [facility] 75 mg EC 5-09 tablet by ity of tablet 00:00: mouth [place] (two) Medical times Branch daily with meals. diclofenac 2022-0 Yes [id number] 75mg Take 1 [facility] 75 mg EC 5-09 tablet by ity of tablet 00:00: mouth [place] (two) Medical times Branch daily with meals. diclofenac 2022-0 Yes [id number] 75mg Take 1 [facility] 75 mg EC 5-09 tablet by ity of tablet 00:00: mouth [place] (two) Medical times Branch daily with meals. diclofenac 2022-0 Yes [id number] 75mg Take 1 [facility] 75 mg EC 5-09 tablet by ity of tablet 00:00: mouth [place] (two) Medical times Branch daily with meals. diclofenac 2022-0 Yes [id number] 75mg Take 1 [facility] 75 mg EC 5-09 tablet by ity of tablet 00:00: mouth [place] (two) Medical times Branch daily with meals. diclofenac 2022-0 Yes [id number] 75mg Take 1 [facility] 75 mg EC 5-09 tablet by ity of tablet 00:00: mouth [place] (two) Medical times Branch daily with meals. diclofenac 2022-0 Yes [id number] 75mg Take 1 [facility] 75 mg EC 5-09 tablet by ity of tablet 00:00: mouth [place] (two) Medical times Branch daily with meals. diclofenac 2022-0 Yes [id number] 75mg Take 1 [facility] 75 mg EC 5-09 tablet by ity of tablet 00:00: mouth [place] (two) Medical times Branch daily with meals. diclofenac 2022-0 Yes [id number] 75mg Take 1 [facility] 75 mg EC 5-09 tablet by ity of tablet 00:00: mouth (two) Medical times Branch daily with meals. diclofenac 2022-0 Yes [id number] 75mg Take 1 [facility] 75 mg EC 5-09 tablet by ity of tablet 00:00: mouth (two) Medical times Branch daily with meals. diclofenac 2022-0 Yes [id number] 75mg Take 1 [facility] 75 mg EC 5-09 tablet by ity of tablet 00:00: mouth (two) Medical times Branch daily with meals. diclofenac 2022-0 Yes [id number] 75mg Take 1 [facility] 75 mg EC 5-09 tablet by ity of tablet 00:00: mouth [place] (two) Medical times Branch daily with meals. diclofenac 2022-0 Yes [id number] 75mg Take 1 [facility] 75 mg EC 5-09 tablet by ity of tablet 00:00: mouth [place] (two) Medical times Branch daily with meals. diclofenac 2022-0 Yes [id number] 75mg Take 1 [facility] 75 mg EC 5-09 tablet by ity of tablet 00:00: mouth [place] (two) Medical times Branch daily with meals. diclofenac 2022-0 Yes [id number] 75mg Take 1 [facility] 75 mg EC 5-09 tablet by ity of tablet 00:00: [facility] [place] (two) Medical times Branch daily with meals. diclofenac 2022-0 Yes [id number] 75mg Take 1 [facility] 75 mg EC 5-09 tablet by ity of tablet 00:00: mouth [place] (two) Medical times Branch daily with meals. diclofenac 2022-0 Yes [id number] 75mg Take 1 [facility] 75 mg EC 5-09 tablet by ity of tablet 00:00: mouth [place] (two) Medical times Branch daily with meals. diclofenac 2022-0 Yes [id number] 75mg Take 1 [facility] 75 mg EC 5-09 tablet by ity of tablet 00:00: mouth [place] (two) Medical times Branch daily with meals. diclofenac 2022-0 Yes [id number] 75mg Take 1 [facility] 75 mg EC 5-09 tablet by ity of tablet 00:00: mouth (two) Medical times Branch daily with meals. diclofenac 2022-0 Yes [id number] 75mg Take 1 [facility] 75 mg EC 5-09 tablet by ity of tablet 00:00: mouth [place] (two) Medical times Branch daily with meals. diclofenac 2022-0 Yes [id number] 75mg Take 1 [facility] 75 mg EC 5-09 tablet by ity of tablet 00:00: mouth [place] (two) Medical times Branch daily with meals. diclofenac 2022-0 Yes [id number] 75mg Take 1 [facility] 75 mg EC 5-09 tablet by ity of tablet 00:00: mouth [place] (two) Medical times Branch daily with meals. diclofenac 2022-0 Yes [id number] 75mg Take 1 [facility] 75 mg EC 5-09 tablet by ity of tablet 00:00: mouth [place] (two) Medical times Branch daily with meals. diclofenac 2-0 Yes [id number] 75mg Take 1 [facility] 75 mg EC 5-09 tablet by ity of tablet 00:00: mouth [place] (two) Medical times Branch daily with meals. diclofenac 2022-0 Yes [id number] 75mg Take 1 [facility] 75 mg EC 5-09 tablet by ity of tablet 00:00: mouth [place] (two) Medical times Branch daily with meals. diclofenac 2022-0 Yes [id number] 75mg Take 1 [facility] 75 mg EC 5-09 tablet by ity of tablet 00:00: mouth [place] (two) Medical times Branch daily with meals. diclofenac 2022-0 Yes [id number] 75mg Take 1 [facility] 75 mg EC 5-09 tablet by ity of tablet 00:00: mouth [place] (two) Medical times Branch daily with meals. diclofenac 2022-0 Yes [id number] 75mg Take 1 [facility] 75 mg EC 5-09 tablet by ity of tablet 00:00: mouth [place] (two) Medical times Branch daily with meals. diclofenac 2022-0 Yes [id number] 75mg Take 1 [facility] 75 mg EC 5-09 tablet by ity of tablet 00:00: mouth [place] (two) Medical times Branch daily with meals. diclofenac 2022-0 Yes [id number] 75mg Take 1 [facility] 75 mg EC 5-09 tablet by ity of tablet 00:00: mouth [place] (two) Medical times Branch daily with meals. diclofenac 2022-0 Yes [id number] 75mg Take 1 [facility] 75 mg EC 5-09 tablet by ity of tablet 00:00: mouth (two) Medical times Branch daily with meals. diclofenac 2-0 Yes [id number] 75mg Take 1 [facility] 75 mg EC 5-09 tablet by ity of tablet 00:00: mouth (two) Medical times Branch daily with meals. diclofenac 2021-0 Yes [id number] 75mg Take 1 [facility] 75 mg EC 5-09 tablet by ity of tablet 00:00: mouth (two) Medical times Branch daily with meals. diclofenac 2021-0 Yes [id number] 75mg Take 1 [facility] 75 mg EC 5-09 tablet by ity of tablet 00:00: mouth (two) Medical times Branch daily with meals. diclofenac 2021-0 Yes [id number] 75mg Take 1 [facility] 75 mg EC 5-09 tablet by ity of tablet 00:00: mouth (two) Medical times Branch daily with meals. diclofenac 2021-0 Yes [id number] 75mg Take 1 [facility] 75 mg EC 5-09 tablet by ity of tablet 00:00: mouth (two) Medical times Branch daily with meals. gabapentin 2021-0 2022- No 300mg Take 300 U nivers 300 mg 3-14 08-25 mg by ity of capsule 00:00: 00:00 mouth 3 00 :00 (three) Medical times Branch daily. naproxen 2021-0 Yes [id number] 500mg Take 1 [facility] 500 mg 2-08 [id number] tablet by [facility] tablet 00:00: mouth (two) Medical times Branch daily as needed for Pain (scale 4-6). naproxen 2021-0 Yes [id number] 500mg Take 1 [facility] 500 mg [facility]-08 [id number] tablet by [facility] tablet 00:00: mouth (two) Medical times Branch daily as needed for Pain (scale 4-6). naproxen 2022-0 Yes [id number] 500mg Take 1 [facility] 500 mg 2-08 [id number] tablet by [facility] tablet 00:00: mouth (two) Medical times Branch daily as needed for Pain (scale 4-6). naproxen 2-0 Yes [id number] 500mg Take 1 [facility] 500 mg 2-08 [id number] tablet by [facility] tablet 00:00: mouth 2 (two) Medical times Branch daily as needed for Pain (scale 4-6). naproxen 2021-0 Yes [id number] 500mg Take 1 [facility] 500 mg 2-08 [id number] tablet by [facility] tablet 00:00: mouth 2 (two) Medical times Branch daily as needed for Pain (scale 4-6). naproxen 2021-0 Yes [id number] 500mg Take 1 [facility] 500 mg 2-08 [id number] tablet by [facility] tablet 00:00: mouth 2 (two) Medical times Branch daily as needed for Pain (scale 4-6). naproxen 2021-0 Yes [id number] 500mg Take 1 [facility] 500 mg 2-08 [id number] tablet by [facility] tablet 00:00: mouth 2 (two) Medical times Branch daily as needed for Pain (scale 4-6). naproxen 2021-0 Yes [id number] 500mg Take 1 [facility] 500 mg 2-08 [id number] tablet by [facility] tablet 00:00: mouth (two) Medical times Branch daily as needed for Pain (scale 4-6). naproxen 2021-0 Yes [id number] 500mg Take 1 [facility] 500 mg 2-08 [id number] tablet by [facility] tablet 00:00: mouth 2 (two) Medical times Branch daily as needed for Pain (scale 4-6). naproxen 2021-0 Yes [id number] 500mg Take 1 [facility] 500 mg 2-08 [id number] tablet by [facility] tablet 00:00: mouth 2 (two) Medical times Branch daily as needed for Pain (scale 4-6). naproxen 2021-0 Yes [id number] 500mg Take 1 [facility] 500 mg 2-08 [id number] tablet by [facility] tablet 00:00: mouth 2 (two) Medical times Branch daily as needed for Pain (scale 4-6). naproxen 2-0 Yes [id number] 500mg Take 1 [facility] 500 mg 2-08 [id number] tablet by [facility] tablet 00:00: mouth 2 (two) Medical times Branch daily as needed for Pain (scale 4-6). naproxen 2022-0 Yes [id number] 500mg Take 1 [facility] 500 mg 2-08 [id number] tablet by [facility] tablet 00:00: mouth 2 (two) Medical times Branch daily as needed for Pain (scale 4-6). naproxen 2021-0 Yes [id number] 500mg Take 1 [facility] 500 mg 2-08 [id number] tablet by [facility] tablet 00:00: mouth 2 (two) Medical times Branch daily as needed for Pain (scale 4-6). naproxen 2021-0 Yes [id number] 500mg Take 1 [facility] 500 mg 2-08 [id number] tablet by [facility] tablet 00:00: mouth 2 (two) Medical times Branch daily as needed for Pain (scale 4-6). naproxen 2021-0 Yes [id number] 500mg Take 1 [facility] 500 mg 2-08 [id number] tablet by [facility] tablet 00:00: mouth 2 (two) Medical times Branch daily as needed for Pain (scale 4-6). naproxen 2021-0 Yes [id number] 500mg Take 1 [facility] 500 mg 2-08 [id number] tablet by [facility] tablet 00:00: mouth (two) Medical times Branch daily as needed for Pain (scale 4-6). naproxen 2021-0 Yes [id number] 500mg Take 1 [facility] 500 mg 2-08 [id number] tablet by [facility] tablet 00:00: mouth 2 (two) Medical times Branch daily as needed for Pain (scale 4-6). naproxen 2021-0 Yes [id number] 500mg Take 1 [facility] 500 mg 2-08 [id number] tablet by [facility] tablet 00:00: mouth 2 (two) Medical times Branch daily as needed for Pain (scale 4-6). naproxen 2021-0 Yes [id number] 500mg Take 1 [facility] 500 mg 2-08 [id number] tablet by [facility] tablet 00:00: mouth 2 (two) Medical times Branch daily as needed for Pain (scale 4-6). naproxen 2021-0 Yes [id number] 500mg Take 1 [facility] 500 mg 2-08 [id number] tablet by [facility] tablet 00:00: mouth 2 (two) Medical times Branch daily as needed for Pain (scale 4-6). naproxen 2022-0 Yes [id number] 500mg Take 1 [facility] 500 mg 2-08 [id number] tablet by [facility] tablet 00:00: mouth 2 (two) Medical times Branch daily as needed for Pain (scale 4-6). naproxen 2021-0 Yes [id number] 500mg Take 1 [facility] 500 mg 2-08 [id number] tablet by [facility] tablet 00:00: mouth 2 (two) Medical times Branch daily as needed for Pain (scale 4-6). naproxen 2021-0 Yes [id number] 500mg Take 1 [facility] 500 mg 2-08 [id number] tablet by [facility] tablet 00:00: mouth 2 (two) Medical times Branch daily as needed for Pain (scale 4-6). naproxen 2021-0 Yes [id number] 500mg Take 1 [facility] 500 mg 2-08 [id number] tablet by [facility] tablet 00:00: mouth 2 (two) Medical times Branch daily as needed for Pain (scale 4-6). naproxen 2021-0 Yes [id number] 500mg Take 1 [facility] 500 mg 2-08 [id number] tablet by [facility] tablet 00:00: mouth (two) Medical times Branch daily as needed for Pain (scale 4-6). naproxen 2021-0 Yes [id number] 500mg Take 1 [facility] 500 mg 2-08 [id number] tablet by [facility] tablet 00:00: mouth 2 (two) Medical times Branch daily as needed for Pain (scale 4-6). naproxen 2021-0 Yes [id number] 500mg Take 1 [facility] 500 mg 2-08 [id number] tablet by [facility] tablet 00:00: mouth 2 (two) Medical times Branch daily as needed for Pain (scale 4-6). naproxen 2-0 Yes [id number] 500mg Take 1 [facility] 500 mg 2-08 [id number] tablet by [facility] tablet 00:00: mouth 2 (two) Medical times Branch daily as needed for Pain (scale 4-6). naproxen 2-0 Yes [id number] 500mg Take 1 [facility] 500 mg 2-08 [id number] tablet by [facility] tablet 00:00: mouth 2 (two) Medical times Branch daily as needed for Pain (scale 4-6). naproxen 2-0 Yes [id number] 500mg Take 1 [facility] 500 mg 2-08 [id number] tablet by [facility] tablet 00:00: mouth 2 (two) Medical times Branch daily as needed for Pain (scale 4-6). naproxen 2021-0 Yes [id number] 500mg Take 1 [facility] 500 mg 2-08 [id number] tablet by [facility] tablet 00:00: mouth 2 (two) Medical times Branch daily as needed for Pain (scale 4-6). naproxen 2021-0 Yes [id number] 500mg Take 1 [facility] 500 mg 2-08 [id number] tablet by [facility] tablet 00:00: mouth (two) Medical times Branch daily as needed for Pain (scale 4-6). naproxen 2021-0 Yes [id number] 500mg Take 1 [facility] 500 mg 2-08 [id number] tablet by [facility] tablet 00:00: mouth (two) Medical times Branch daily as needed for Pain (scale 4-6). naproxen 2021-0 Yes [id number] 500mg Take 1 [facility] 500 mg 2-08 [id number] tablet by [facility] tablet 00:00: mouth (two) Medical times Branch daily as needed for Pain (scale 4-6). naproxen 2021-0 Yes [id number] 500mg Take 1 [facility] 500 mg 2-08 [id number] tablet by [facility] tablet 00:00: mouth (two) Medical times Branch daily as needed for Pain (scale 4-6). naproxen 2021-0 Yes [id number] 500mg Take 1 [facility] 500 mg 2-08 [id number] tablet by [facility] tablet 00:00: mouth (two) Medical times Branch daily as needed for Pain (scale 4-6). naproxen 2-0 Yes [id number] 500mg Take 1 [facility] 500 mg 2-08 [id number] tablet by [facility] tablet 00:00: mouth 2 (two) Medical times Branch daily as needed for Pain (scale 4-6). naproxen 2-0 Yes [id number] 500mg Take 1 [facility] 500 mg 2-08 [id number] tablet by [facility] tablet 00:00: mouth 2 (two) Medical times Branch daily as needed for Pain (scale 4-6). naproxen 2022-0 Yes [id number] 500mg Take 1 [facility] 500 mg 2-08 [id number] tablet by [facility] tablet 00:00: mouth 2 (two) Medical times Branch daily as needed for Pain (scale 4-6). naproxen 2-0 Yes [id number] 500mg Take 1 [facility] 500 mg 2-08 [id number] tablet by [facility] tablet 00:00: mouth 2 (two) Medical times Branch daily as needed for Pain (scale 4-6). naproxen 2022-0 Yes [id number] 500mg Take 1 [facility] 500 mg 2-08 [id number] tablet by [facility] tablet 00:00: mouth (two) Medical times Branch daily as needed for Pain (scale 4-6). naproxen 2-0 Yes [id number] 500mg Take 1 [facility] 500 mg 2-08 [id number] tablet by [facility] tablet 00:00: mouth (two) Medical times Branch daily as needed for Pain (scale 4-6). naproxen 2-0 Yes [id number] 500mg Take 1 [facility] 500 mg 2-08 [id number] tablet by [facility] tablet 00:00: mouth (two) Medical times Branch daily as needed for Pain (scale 4-6). naproxen 2-0 Yes [id number] 500mg Take 1 [facility] 500 mg 2-08 [id number] tablet by [facility] tablet 00:00: mouth (two) Medical times Branch daily as needed for Pain (scale 4-6). naproxen 2022-0 Yes [id number] 500mg Take 1 [facility] 500 mg 2-08 [id number] tablet by [facility] tablet 00:00: mouth 2 (two) Medical times Branch daily as needed for Pain (scale 4-6). naproxen 2022-0 Yes [id number] 500mg Take 1 [facility] 500 mg 2-08 [id number] tablet by [facility] tablet 00:00: mouth 2 (two) Medical times Branch daily as needed for Pain (scale 4-6). naproxen 2022-0 Yes [id number] 500mg Take 1 [facility] 500 mg 2-08 [id number] tablet by [facility] tablet 00:00: mouth 2 (two) Medical times Branch daily as needed for Pain (scale 4-6). naproxen 2021-0 Yes [id number] 500mg Take 1 [facility] 500 mg 2-08 [id number] tablet by [facility] tablet 00:00: mouth 2 (two) Medical times Branch daily as needed for Pain (scale 4-6). naproxen 2021-0 Yes [id number] 500mg Take 1 [facility] 500 mg 2-08 [id number] tablet by [facility] tablet 00:00: mouth 2 00 (two) Medical times Branch daily as needed for Pain (scale 4-6). naproxen 2021-0 Yes [id number] 500mg Take 1 [facility] 500 mg 2-08 [id number] tablet by [facility] tablet 00:00: mouth 2 (two) Medical times Branch daily as needed for Pain (scale 4-6). naproxen 2021-0 Yes [id number] 500mg Take 1 [facility] 500 mg 2-08 [id number] tablet by [facility] tablet 00:00: mouth 2 (two) Medical times Branch daily as needed for Pain (scale 4-6). naproxen 2021-0 Yes [id number] 500mg Take 1 [facility] 500 mg 2-08 [id number] tablet by [facility] tablet 00:00: mouth 2 (two) Medical times Branch daily as needed for Pain (scale 4-6). naproxen 2021-0 Yes [id number] 500mg Take 1 [facility] 500 mg 2-08 [id number] tablet by [facility] tablet 00:00: mouth 2 (two) Medical times Branch daily as needed [...] solution 00 Medical Branch norethindro 2020-09 Yes [id number] 1{tbl} Take 1 [facility] ne-e.estrad 1-01 tablet by [facility] ioL-iron 00:00: mouth [place] (LOESTRIN 00 daily. Medical FE ) Branch 1.5 mg-30 mcg (21)/75 mg (7) per tablet norethindro 2020-09 Yes [id number] 1{tbl} Take 1 [facility] ne-e.estrad 1-01 tablet by [facility] of ioL-iron 00:00: mouth [place] (LOESTRIN 00 daily. Medical FE ) Branch 1.5 mg-30 mcg (21)/75 mg (7) per tablet norethindro 2020-09 Yes [id number] 1{tbl} Take 1 [facility] ne-e.estrad 1-01 tablet by [facility] of ioL-iron 00:00: mouth [place] (LOESTRIN 00 daily. Medical FE ) Branch 1.5 mg-30 mcg (21)/75 mg (7) per tablet norethindro 2020-09 Yes [id number] 1{tbl} Take 1 [facility] ne-e.estrad 1-01 tablet by [facility] of ioL-iron 00:00: mouth [place] (LOESTRIN 00 daily. Medical FE ) Branch 1.5 mg-30 mcg (21)/75 mg (7) per tablet norethindro 2020-09 Yes [id number] 1{tbl} Take 1 [facility] ne-e.estrad 1-01 tablet by [facility] of ioL-iron 00:00: mouth [place] (LOESTRIN 00 daily. Medical FE ) Branch 1.5 mg-30 mcg (21)/75 mg (7) per tablet norethindro 2020-09 Yes [id number] 1{tbl} Take 1 [facility] ne-e.estrad 1-01 tablet by [facility] of ioL-iron 00:00: mouth [place] (LOESTRIN 00 daily. Medical FE ) Branch 1.5 mg-30 mcg (21)/75 mg (7) per tablet norethindro 2020-09 Yes [id number] 1{tbl} Take 1 [facility] ne-e.estrad 1-01 tablet by [facility] of ioL-iron 00:00: mouth [place] (LOESTRIN 00 daily. Medical FE ) Branch 1.5 mg-30 mcg (21)/75 mg (7) per tablet norethindro 2020-09 Yes [id number] 1{tbl} Take 1 [facility] ne-e.estrad 1-01 tablet by [facility] of ioL-iron 00:00: mouth [place] (LOESTRIN 00 daily. Medical FE ) Branch 1.5 mg-30 mcg (21)/75 mg (7) per tablet norethindro 2020-09 Yes [id number] 1{tbl} Take 1 [facility] ne-e.estrad 1-01 tablet by [facility]y of ioL-iron 00:00: mouth [place] (LOESTRIN 00 daily. Medical FE ) Branch 1.5 mg-30 mcg (21)/75 mg (7) per tablet norethindro 2020-09 Yes [id number] 1{tbl} Take 1 [facility] ne-e.estrad 1-01 tablet by [facility] of ioL-iron 00:00: mouth [place] (LOESTRIN 00 daily. Medical FE ) Branch 1.5 mg-30 mcg (21)/75 mg (7) per tablet norethindro 2020-09 Yes [id number] 1{tbl} Take 1 [facility] ne-e.estrad 1-01 tablet by [facility] of ioL-iron 00:00: mouth [place] (LOESTRIN 00 daily. Medical FE ) Branch 1.5 mg-30 mcg (21)/75 mg (7) per tablet norethindro 2020-09 Yes [id number] 1{tbl} Take 1 [facility] ne-e.estrad 1-01 tablet by [facility] of ioL-iron 00:00: mouth [place] (LOESTRIN 00 daily. Medical FE ) Branch 1.5 mg-30 mcg (21)/75 mg (7) per tablet norethindro 2020-09 Yes [id number] 1{tbl} Take 1 [facility] ne-e.estrad 1-01 tablet by [facility] of ioL-iron 00:00: mouth [place] (LOESTRIN 00 daily. Medical FE ) Branch 1.5 mg-30 mcg (21)/75 mg (7) per tablet norethindro 2020-09 Yes [id number] 1{tbl} Take 1 [facility] ne-e.estrad 1-01 tablet by [facility] of ioL-iron 00:00: mouth [place] (LOESTRIN 00 daily. Medical FE ) Branch 1.5 mg-30 mcg (21)/75 mg (7) per tablet norethindro 2020-09 Yes [id number] 1{tbl} Take 1 [facility] ne-e.estrad 1-01 tablet by [facility] of ioL-iron 00:00: mouth [place] (LOESTRIN 00 daily. Medical FE ) Branch 1.5 mg-30 mcg (21)/75 mg (7) per tablet norethindro 2020-09 Yes [id number] 1{tbl} Take 1 [facility] ne-e.estrad 1-01 tablet by [facility] of ioL-iron 00:00: mouth [place] (LOESTRIN 00 daily. Medical FE ) Branch 1.5 mg-30 mcg (21)/75 mg (7) per tablet norethindro 2020-09 Yes [id number] 1{tbl} Take 1 [facility] ne-e.estrad 1-01 tablet by [facility] of ioL-iron 00:00: mouth [place] (LOESTRIN 00 daily. Medical FE ) Branch 1.5 mg-30 mcg (21)/75 mg (7) per tablet norethindro 2020-09 Yes [id number] 1{tbl} Take 1 [facility] ne-e.estrad 1-01 tablet by [facility] of ioL-iron 00:00: mouth [place] (LOESTRIN 00 daily. Medical FE ) Branch 1.5 mg-30 mcg (21)/75 mg (7) per tablet norethindro 2020-09 Yes [id number] 1{tbl} Take 1 [facility] ne-e.estrad 1-01 tablet by [facility] of ioL-iron 00:00: mouth [place] (LOESTRIN 00 daily. Medical FE ) Branch 1.5 mg-30 mcg (21)/75 mg (7) per tablet norethindro 2020-09 Yes [id number] 1{tbl} Take 1 [facility] ne-e.estrad 1-01 tablet by [facility] of ioL-iron 00:00: mouth [place] (LOESTRIN 00 daily. Medical FE ) Branch 1.5 mg-30 mcg (21)/75 mg (7) per tablet norethindro 2020-09 Yes [id number] 1{tbl} Take 1 [facility] ne-e.estrad 1-01 tablet by [facility] of ioL-iron 00:00: mouth [place] (LOESTRIN 00 daily. Medical FE ) Branch 1.5 mg-30 mcg (21)/75 mg (7) per tablet norethindro 2020-09 Yes [id number] 1{tbl} Take 1 [facility] ne-e.estrad 1-01 tablet by [facility] of ioL-iron 00:00: mouth [place] (LOESTRIN 00 daily. Medical FE ) Branch 1.5 mg-30 mcg (21)/75 mg (7) per tablet norethindro 2020-09 Yes [id number] 1{tbl} Take 1 [facility] ne-e.estrad 1-01 tablet by [facility] of ioL-iron 00:00: mouth [place] (LOESTRIN 00 daily. Medical FE ) Branch 1.5 mg-30 mcg (21)/75 mg (7) per tablet norethindro 2020-09 Yes [id number] 1{tbl} Take 1 [facility] ne-e.estrad 1-01 tablet by [facility] of ioL-iron 00:00: mouth [place] (LOESTRIN 00 daily. Medical FE ) Branch 1.5 mg-30 mcg (21)/75 mg (7) per tablet norethindro 2020-09 Yes [id number] 1{tbl} Take 1 [facility] ne-e.estrad 1-01 tablet by [facility]y of ioL-iron 00:00: mouth [place] (LOESTRIN 00 daily. Medical FE ) Branch 1.5 mg-30 mcg (21)/75 mg (7) per tablet norethindro 2020-09 Yes [id number] 1{tbl} Take 1 [facility] ne-e.estrad 1-01 tablet by [facility]y of ioL-iron 00:00: mouth [place] (LOESTRIN 00 daily. Medical FE ) Branch 1.5 mg-30 mcg (21)/75 mg (7) per tablet norethindro 2020-09 Yes [id number] 1{tbl} Take 1 [facility] ne-e.estrad 1-01 tablet by ity of ioL-iron 00:00: mouth [place] (LOESTRIN 00 daily. Medical FE ) Branch 1.5 mg-30 mcg (21)/75 mg (7) per tablet norethindro 2020-09 Yes [id number] 1{tbl} Take 1 [facility] ne-e.estrad 1-01 tablet by [facility]y of ioL-iron 00:00: mouth [place] (LOESTRIN 00 daily. Medical FE ) Branch 1.5 mg-30 mcg (21)/75 mg (7) per tablet norethindro 2020-09 Yes [id number] 1{tbl} Take 1 [facility] ne-e.estrad 1-01 tablet by [facility] of ioL-iron 00:00: mouth [place] (LOESTRIN 00 daily. Medical FE ) Branch 1.5 mg-30 mcg (21)/75 mg (7) per tablet norethindro 2020-09 Yes [id number] 1{tbl} Take 1 [facility] ne-e.estrad 1-01 tablet by [facility] of ioL-iron 00:00: mouth [place] (LOESTRIN 00 daily. Medical FE ) Branch 1.5 mg-30 mcg (21)/75 mg (7) per tablet norethindro 2020-09 Yes [id number] 1{tbl} Take 1 [facility] ne-e.estrad 1-01 tablet by [facility]y of ioL-iron 00:00: mouth [place] (LOESTRIN 00 daily. Medical FE ) Branch 1.5 mg-30 mcg (21)/75 mg (7) per tablet norethindro 2020-09 Yes [id number] 1{tbl} Take 1 [facility] ne-e.estrad 1-01 tablet by [facility]y of ioL-iron 00:00: mouth [place] (LOESTRIN 00 daily. Medical FE ) Branch 1.5 mg-30 mcg (21)/75 mg (7) per tablet norethindro 2020-09 Yes [id number] 1{tbl} Take 1 [facility] ne-e.estrad 1-01 tablet by ity of ioL-iron 00:00: mouth [place] (LOESTRIN 00 daily. Medical FE ) Branch 1.5 mg-30 mcg (21)/75 mg (7) per tablet norethindro 2020-09 Yes [id number] 1{tbl} Take 1 [facility] ne-e.estrad 1-01 tablet by ity of ioL-iron 00:00: mouth [place] (LOESTRIN 00 daily. Medical FE ) Branch 1.5 mg-30 mcg (21)/75 mg (7) per tablet norethindro 2020-09 Yes [id number] 1{tbl} Take 1 [facility] ne-e.estrad 1-01 tablet by ity of ioL-iron 00:00: mouth [place] (LOESTRIN 00 daily. Medical FE ) Branch 1.5 mg-30 mcg (21)/75 mg (7) per tablet norethindro 2020-09 Yes [id number] 1{tbl} Take 1 [facility] ne-e.estrad 1-01 tablet by ity of ioL-iron 00:00: mouth [place] (LOESTRIN 00 daily. Medical FE ) Branch 1.5 mg-30 mcg (21)/75 mg (7) per tablet norethindro 2020-09 Yes [id number] 1{tbl} Take 1 [facility] ne-e.estrad 1-01 tablet by ity of ioL-iron 00:00: mouth [place] (LOESTRIN 00 daily. Medical FE ) Branch 1.5 mg-30 mcg (21)/75 mg (7) per tablet norethindro 2020-09 Yes [id number] 1{tbl} Take 1 [facility] ne-e.estrad 1-01 tablet by ity of ioL-iron 00:00: mouth [place] (LOESTRIN 00 daily. Medical FE ) Branch 1.5 mg-30 mcg (21)/75 mg (7) per tablet norethindro 2020-09 Yes [id number] 1{tbl} Take 1 [facility] ne-e.estrad 1-01 tablet by ity of ioL-iron 00:00: mouth [place] (LOESTRIN 00 daily. Medical FE ) Branch 1.5 mg-30 mcg (21)/75 mg (7) per tablet norethindro 2020-09 Yes [id number] 1{tbl} Take 1 [facility] ne-e.estrad 1-01 tablet by ity of ioL-iron 00:00: mouth [place] (LOESTRIN 00 daily. Medical FE ) Branch 1.5 mg-30 mcg (21)/75 mg (7) per tablet norethindro 2020-09 Yes [id number] 1{tbl} Take 1 [facility] ne-e.estrad 1-01 tablet by ity of ioL-iron 00:00: mouth [place] (LOESTRIN 00 daily. Medical FE ) Branch 1.5 mg-30 mcg (21)/75 mg (7) per tablet norethindro 2020-09 Yes [id number] 1{tbl} Take 1 [facility] ne-e.estrad 1-01 tablet by ity of ioL-iron 00:00: mouth [place] (LOESTRIN 00 daily. Medical FE ) Branch 1.5 mg-30 mcg (21)/75 mg (7) per tablet norethindro 2020-09 Yes [id number] 1{tbl} Take 1 [facility] ne-e.estrad 1-01 tablet by ity of ioL-iron 00:00: mouth [place] (LOESTRIN 00 daily. Medical FE ) Branch 1.5 mg-30 mcg (21)/75 mg (7) per tablet norethindro 2020-09 Yes [id number] 1{tbl} Take 1 [facility] ne-e.estrad 1-01 tablet by ity of ioL-iron 00:00: mouth [place] (LOESTRIN 00 daily. Medical FE ) Branch 1.5 mg-30 mcg (21)/75 mg (7) per tablet norethindro 2020-09 Yes [id number] 1{tbl} Take 1 [facility] ne-e.estrad 1-01 tablet by ity of ioL-iron 00:00: mouth [place] (LOESTRIN 00 daily. Medical FE ) Branch 1.5 mg-30 mcg (21)/75 mg (7) per tablet norethindro 2020-09 Yes [id number] 1{tbl} Take 1 [facility] ne-e.estrad 1-01 tablet by ity of ioL-iron 00:00: mouth [place] (LOESTRIN 00 daily. Medical FE ) Branch 1.5 mg-30 mcg (21)/75 mg (7) per tablet norethindro 2020-09 Yes [id number] 1{tbl} Take 1 [facility] ne-e.estrad 1-01 tablet by ity of ioL-iron 00:00: mouth [place] (LOESTRIN 00 daily. Medical FE ) Branch 1.5 mg-30 mcg (21)/75 mg (7) per tablet norethindro 2020-09 Yes [id number] 1{tbl} Take 1 [facility] ne-e.estrad 1-01 tablet by ity of ioL-iron 00:00: mouth [place] (LOESTRIN 00 daily. Medical FE ) Branch 1.5 mg-30 mcg (21)/75 mg (7) per tablet norethindro 2020-09 Yes [id number] 1{tbl} Take 1 [facility] ne-e.estrad 1-01 tablet by ity of ioL-iron 00:00: mouth [place] (LOESTRIN 00 daily. Medical FE ) Branch 1.5 mg-30 mcg (21)/75 mg (7) per tablet norethindro 2020-09 Yes [id number] 1{tbl} Take 1 [facility] ne-e.estrad 1-01 tablet by ity of ioL-iron 00:00: mouth [place] (LOESTRIN 00 daily. Medical FE ) Branch 1.5 mg-30 mcg (21)/75 mg (7) per tablet norethindro 2020-09 Yes [id number] 1{tbl} Take 1 [facility] ne-e.estrad 1-01 tablet by ity of ioL-iron 00:00: mouth [place] (LOESTRIN 00 daily. Medical FE ) Branch 1.5 mg-30 mcg (21)/75 mg (7) per tablet norethindro 2020-09 Yes [id number] 1{tbl} Take 1 [facility] ne-e.estrad 1-01 tablet by ity of ioL-iron 00:00: mouth [place] (LOESTRIN 00 daily. Medical FE ) Branch 1.5 mg-30 mcg (21)/75 mg (7) per tablet norethindro 2020-09 Yes [id number] 1{tbl} Take 1 [facility] ne-e.estrad 1-01 tablet by ity of ioL-iron 00:00: mouth [place] (LOESTRIN 00 daily. Medical FE ) Branch 1.5 mg-30 mcg (21)/75 mg (7) per tablet norethindro 2020-09 Yes [id number] 1{tbl} Take 1 [facility] ne-e.estrad 1-01 tablet by ity of ioL-iron 00:00: mouth [place] (LOESTRIN 00 daily. Medical FE ) Branch 1.5 mg-30 mcg (21)/75 mg (7) per tablet mupirocin 2 2020-09- No [id number] Apply to [facility] % ointment 0-12 08-25 area(s) 3 ity of 00:00: 00:00 (three) [place] 00 :00 times Medical daily. Branch Immunizations Ordered Filled Immunization Date Status Comments [facility] e Immunization Name Name Zoster Vaccine 2022-07-30 Completed [facility] [employer] 00:00:00 [facility] Zoster Vaccine 2022-07-30 Completed [facility] [employer] 00:00:00 [facility] Zoster Vaccine 2022-07-30 Completed [facility] of Recombinant 00:00:00 [facility] Zoster Vaccine 2022-07-30 Completed [facility] of Recombinant 00:00:00 [facility] Zoster Vaccine 2022-07-30 Completed [facility] of Recombinant 00:00:00 [facility] Zoster Vaccine 2022-07-30 Completed [facility] of Recombinant 00:00:00 [facility] Influenza Virus 2022-06-17 Completed [facility] y of Vaccine Quad IM, 00:00:00 [place] [facility] Preserv and ABX Branch Free 6 MO-64 YRS Influenza Virus 2022-06-17 Completed [facility] y of Vaccine [facility] IM, 00:00:00 [place] [facility]ical Preserv and ABX Branch Free 6 MO-64 YRS Influenza Virus 2022-06-17 Completed [facility] y of Vaccine [facility] IM, 00:00:00 [place] Me dical Preserv and ABX Branch Free 6 MO-64 YRS Influenza Virus 2022-06-17 Completed [facility] y of Vaccine [facility] IM, 00:00:00 [place] Me [facility]ical Preserv and ABX Branch Free 6 MO-64 YRS Influenza Virus 2022-06-17 Completed [facility] y of Vaccine Quad IM, 00:00:00 [place] Me dical Preserv and ABX Branch Free 6 MO-64 YRS Influenza Virus 2022-06-17 Completed [facility] y of Vaccine [facility] IM, 00:00:00 [place] Me dical Preserv and ABX Branch Free 6 MO-64 YRS Influenza Virus 2022-06-17 Completed [facility] y of Vaccine Quad IM, 00:00:00 [place] Me dical Preserv and ABX Branch Free 6 MO-64 YRS Influenza Virus 2022-06-17 Completed [facility] y of Vaccine Quad IM, 00:00:00 [place] Me dical Preserv and ABX Branch Free 6 MO-64 YRS Influenza Virus 2022-06-17 Completed [facility] y of Vaccine Quad IM, 00:00:00 [place] Me dical Preserv and ABX Branch Free 6 MO-64 YRS Influenza Virus 2022-06-17 Completed [facility] y of Vaccine Quad IM, 00:00:00 [place] [facility] Preserv and ABX Branch Free 6 MO-64 YRS Influenza Virus 2022-06-17 Completed [facility] y of Vaccine Quad IM, 00:00:00 [place] Me [facility]ical Preserv and ABX Branch Free 6 MO-64 YRS Influenza Virus 2022-06-17 Completed [facility] y of Vaccine [facility] IM, 00:00:00 [place] Me [facility]ical Preserv and ABX Branch Free 6 MO-64 YRS Influenza Virus 2022-06-17 Completed [facility] y of Vaccine Quad IM, 00:00:00 [place] Me [facility]ical Preserv and ABX Branch Free 6 MO-64 YRS Influenza Virus 2022-06-17 Completed [facility] y of Vaccine Quad IM, 00:00:00 [place] Me dical Preserv and ABX Branch Free 6 MO-64 YRS Influenza Virus 2022-06-17 Completed [facility] y of Vaccine Quad IM, 00:00:00 [place] Me dical Preserv and ABX Branch Free 6 MO-64 YRS Influenza Virus 2022-06-17 Completed [facility] y of Vaccine Quad IM, 00:00:00 [place] Me dical Preserv and ABX Branch Free 6 MO-64 YRS Influenza Virus 2022-06-17 Completed [facility] y of Vaccine Quad IM, 00:00:00 [place] Me dical Preserv and ABX Branch Free 6 MO-64 YRS Influenza Virus 2022-06-17 Completed [facility] y of Vaccine Quad IM, 00:00:00 [place] Me dical Preserv and ABX Branch Free 6 MO-64 YRS Influenza Virus 2022-06-17 Completed [facility] y of Vaccine Quad IM, 00:00:00 [place] Me dical Preserv and ABX Branch Free 6 MO-64 YRS Influenza Virus 2022-06-17 Completed [facility] y of Vaccine Quad IM, 00:00:00 [place] Me dical Preserv and ABX Branch Free 6 MO-64 YRS Influenza Virus 2022-06-17 Completed [facility] y of Vaccine Quad IM, 00:00:00 [place] Me dical Preserv and ABX Branch Free 6 MO-64 YRS Influenza Virus 2022-06-17 Completed [facility] y of Vaccine Quad IM, 00:00:00 [place] Me dical Preserv and ABX Branch Free 6 MO-64 YRS Influenza Virus 2022-06-17 Completed [facility] y of Vaccine Quad IM, 00:00:00 [place] Me dical Preserv and ABX Branch Free 6 MO-64 YRS Influenza Virus 2022-06-17 Completed Univers[facility] y of Vaccine Quad IM, 00:00:00 [place] [facility] 6 MO-64 YRS Influenza Virus 2022-06-17 Completed [facility], 00:00:00 [place] [facility] 6 MO-64 YRS Influenza Virus 2022-06-17 Completed [facility], 00:00:00 [place] [facility] 6 MO-64 YRS Influenza Virus 2022-06-17 Completed [facility], 00:00:00 [place] [facility] 6 MO-64 YRS Influenza Virus 2022-06-17 Completed [facility], 00:00:00 [place] [facility] 6 MO-64 YRS Influenza Virus 2022-06-17 Completed [facility], 00:00:00 [place] [facility] 6 MO-64 YRS Influenza Virus 2022-06-17 Completed [facility], 00:00:00 [place] [facility] 6 MO-64 YRS Influenza Virus 2022-06-17 Completed [facility], 00:00:00 [place] [facility] 6 MO-64 YRS Influenza Virus 2022-06-17 Completed [facility], 00:00:00 [place] [facility] 6 MO-64 YRS Influenza Virus 2022-06-17 Completed [facility], 00:00:00 [place] [facility] 6 MO-64 YRS Influenza Virus 2022-06-17 Completed [facility], 00:00:00 [place] [facility] 6 MO-64 YRS Influenza Virus 2022-06-17 Completed [facility], 00:00:00 [place] [facility] 6 MO-64 YRS Influenza Virus 2022-06-17 Completed [facility], 00:00:00 [place] [facility] 6 MO-64 YRS Influenza Virus 2022-06-17 Completed [facility], 00:00:00 [place] [facility] 6 MO-64 YRS Influenza Virus 2022-06-17 Completed [facility], 00:00:00 [place] [facility] 6 MO-64 YRS Influenza Virus 2022-06-17 Completed [facility], 00:00:00 [place] [facility] 6 MO-64 YRS Influenza Virus 2022-06-17 Completed [facility], 00:00:00 [place] [facility] 6 MO-64 YRS Influenza Virus 2022-06-17 Completed [facility], 00:00:00 [place] [facility] 6 MO-64 YRS Influenza Virus 2022-06-17 Completed [facility], 00:00:00 [place] [facility] 6 MO-64 YRS Influenza Virus 2022-06-17 Completed [facility], 00:00:00 [place] [facility] 6 MO-64 YRS Influenza Virus 2022-06-17 Completed [facility], 00:00:00 [place] [facility] 6 MO-64 YRS Influenza Virus 2022-06-17 Completed [facility], 00:00:00 [place] [facility] 6 MO-64 YRS Influenza Virus 2022-06-17 Completed [facility], 00:00:00 [place] [facility] 6 MO-64 YRS Influenza Virus 2022-06-17 Completed [facility], 00:00:00 [place] [facility] 6 MO-64 YRS Influenza Virus 2022-06-17 Completed [facility], 00:00:00 [place] [facility] 6 MO-64 YRS Influenza Virus 2022-06-17 Completed [facility], 00:00:00 [place] [facility] 6 MO-64 YRS Influenza Virus 2022-06-17 Completed [facility], 00:00:00 [place] [facility] 6 MO-64 YRS SARS-COV-2 COVID-19 2021-06-24 Completed [facility]ACCINE 00:00:00 [facility] Influenza Virus 2021-06-24 Completed [facility] 00:00:00 [facility] SARS-COV-2 COVID-19 2021-06-24 Completed [facility] PFIZER VACCINE 00:00:00 [facility] Influenza Virus 2021-06-24 Completed [facility] 00:00:00 [facility] SARS-COV-2 COVID-19 2021-06-24 Completed [facility] PFIZER VACCINE 00:00:00 [facility] Influenza Virus 2021-06-24 Completed [facility]ine 00:00:00 [facility] SARS-COV-2 COVID-19 2021-06-24 Completed [facility] PFIZER VACCINE 00:00:00 [facility] Influenza Virus 2021-06-24 Completed [facility]ine 00:00:00 [facility] SARS-COV-2 COVID-19 2021-06-24 Completed [facility] PFIZER VACCINE 00:00:00 [facility] Influenza Virus 2021-06-24 Completed [facility]ine 00:00:00 [facility] SARS-COV-2 COVID-19 2021-06-24 Completed [facility] PFIZER VACCINE 00:00:00 [facility] Influenza Virus 2021-06-24 Completed [facility]ine 00:00:00 [facility] SARS-COV-2 COVID-19 2021-06-24 Completed [facility] PFIZER VACCINE 00:00:00 [facility] Influenza Virus 2021-06-24 Completed [facility] Vaccine 00:00:00 [facility] SARS-COV-2 COVID-19 2021-06-24 Completed [facility] PFIZER VACCINE 00:00:00 [facility] Influenza Virus 2021-06-24 Completed [facility] 00:00:00 [facility] SARS-COV-2 COVID-19 2021-06-24 Completed [facility] PFIZER VACCINE 00:00:00 [facility] Influenza Virus 2021-06-24 Completed [facility] 00:00:00 [facility] SARS-COV-2 COVID-19 2021-06-24 Completed [facility] PFIZER VACCINE 00:00:00 [facility] Influenza Virus 2021-06-24 Completed [facility]ine 00:00:00 [facility] SARS-COV-2 COVID-19 2021-06-24 Completed [facility] PFIZER VACCINE 00:00:00 [facility] Influenza Virus 2021-06-24 Completed [facility]ine 00:00:00 [facility] SARS-COV-2 COVID-19 2021-06-24 Completed [facility] PFIZER VACCINE 00:00:00 [facility] Influenza Virus 2021-06-24 Completed [facility]ine 00:00:00 [facility] SARS-COV-2 COVID-19 2021-06-24 Completed [facility] PFIZER VACCINE 00:00:00 [facility] Influenza Virus 2021-06-24 Completed [facility]ine 00:00:00 [facility] SARS-COV-2 COVID-19 2021-06-24 Completed [facility] PFIZER VACCINE 00:00:00 [facility] Influenza Virus 2021-06-24 Completed [facility] 00:00:00 [facility] SARS-COV-2 COVID-19 2021-06-24 Completed [facility] PFIZER VACCINE 00:00:00 [facility] Influenza Virus 2021-06-24 Completed [facility]ine 00:00:00 [facility] SARS-COV-2 COVID-19 2021-06-24 Completed [facility] PFIZER VACCINE 00:00:00 [facility] Influenza Virus 2021-06-24 Completed [facility]ine 00:00:00 [facility] SARS-COV-2 COVID-19 2021-06-24 Completed [facility] PFIZER VACCINE 00:00:00 [facility] Influenza Virus 2021-06-24 Completed [facility]ine 00:00:00 [facility] SARS-COV-2 COVID-19 2021-06-24 Completed [facility] PFIZER VACCINE 00:00:00 [facility] Influenza Virus 2021-06-24 Completed [facility] 00:00:00 [facility] SARS-COV-2 COVID-19 2021-06-24 Completed [facility] PFIZER VACCINE 00:00:00 [facility] Influenza Virus 2021-06-24 Completed [facility]ine 00:00:00 [facility] SARS-COV-2 COVID-19 2021-06-24 Completed [facility] PFIZER VACCINE 00:00:00 [facility] Influenza Virus 2021-06-24 Completed [facility]ine 00:00:00 [facility] SARS-COV-2 COVID-19 2021-06-24 Completed [facility] PFIZER VACCINE 00:00:00 [facility] Influenza Virus 2021-06-24 Completed [facility]ine 00:00:00 [facility] SARS-COV-2 COVID-19 2021-06-24 Completed [facility] PFIZER VACCINE 00:00:00 [facility] Influenza Virus 2021-06-24 Completed [facility] 00:00:00 [facility] SARS-COV-2 COVID-19 2021-06-24 Completed [facility] PFIZER VACCINE 00:00:00 [facility] Influenza Virus 2021-06-24 Completed [facility] 00:00:00 [facility] SARS-COV-2 COVID-19 2021-06-24 Completed [facility] PFIZER VACCINE 00:00:00 [facility] Influenza Virus 2021-06-24 Completed [facility] 00:00:00 [facility] SARS-COV-2 COVID-19 2021-06-24 Completed [facility] PFIZER VACCINE 00:00:00 [facility] Influenza Virus 2021-06-24 Completed [facility]ine 00:00:00 [facility] SARS-COV-2 COVID-19 2021-06-24 Completed [facility] PFIZER VACCINE 00:00:00 [facility] Influenza Virus 2021-06-24 Completed [facility] 00:00:00 [facility] SARS-COV-2 COVID-19 2021-06-24 Completed [facility] PFIZER VACCINE 00:00:00 [facility] Influenza Virus 2021-06-24 Completed [facility]ine 00:00:00 [facility] SARS-COV-2 COVID-19 2021-06-24 Completed [facility] PFIZER VACCINE 00:00:00 [facility] Influenza Virus 2021-06-24 Completed [facility]ine 00:00:00 [facility] SARS-COV-2 COVID-19 2021-06-24 Completed [facility] PFIZER VACCINE 00:00:00 [facility] Influenza Virus 2021-06-24 Completed [facility]ine 00:00:00 [facility] SARS-COV-2 COVID-19 2021-06-24 Completed [facility] PFIZER VACCINE 00:00:00 [facility] Influenza Virus 2021-06-24 Completed [facility]ine 00:00:00 [facility] SARS-COV-2 COVID-19 2021-06-24 Completed [facility] PFIZER VACCINE 00:00:00 [facility] Influenza Virus 2021-06-24 Completed [facility] Vaccine 00:00:00 [facility] SARS-COV-2 COVID-19 2021-06-24 Completed [facility] PFIZER VACCINE 00:00:00 [facility] Influenza Virus 2021-06-24 Completed [facility]ine 00:00:00 [facility] SARS-COV-2 COVID-19 2021-06-24 Completed [facility] PFIZER VACCINE 00:00:00 [facility] Influenza Virus 2021-06-24 Completed [facility] Vaccine 00:00:00 [facility] SARS-COV-2 COVID-19 2021-06-24 Completed [facility] PFIZER VACCINE 00:00:00 [facility] Influenza Virus 2021-06-24 Completed [facility]ine 00:00:00 [facility] SARS-COV-2 COVID-19 2021-06-24 Completed [facility] PFIZER VACCINE 00:00:00 [facility] Influenza Virus 2021-06-24 Completed [facility] Vaccine 00:00:00 [facility] SARS-COV-2 COVID-19 2021-06-24 Completed [facility] PFIZER VACCINE 00:00:00 [facility] Influenza Virus 2021-06-24 Completed [facility]ine 00:00:00 [facility] SARS-COV-2 COVID-19 2021-06-24 Completed [facility] PFIZER VACCINE 00:00:00 [facility] Influenza Virus 2021-06-24 Completed [facility]ine 00:00:00 [facility] SARS-COV-2 COVID-19 2021-06-24 Completed [facility] PFIZER VACCINE 00:00:00 [facility] Influenza Virus 2021-06-24 Completed [facility] 00:00:00 [facility] SARS-COV-2 COVID-19 2021-06-24 Completed [facility] PFIZER VACCINE 00:00:00 [facility] Influenza Virus 2021-06-24 Completed [facility]ine 00:00:00 [facility] SARS-COV-2 COVID-19 2021-06-24 Completed [facility] PFIZER VACCINE 00:00:00 [facility] Influenza Virus 2021-06-24 Completed [facility]ine 00:00:00 [facility] SARS-COV-2 COVID-19 2021-06-24 Completed [facility] PFIZER VACCINE 00:00:00 [facility] Influenza Virus 2021-06-24 Completed [facility]ine 00:00:00 [facility] SARS-COV-2 COVID-19 2021-06-24 Completed [facility] PFIZER VACCINE 00:00:00 [facility] Influenza Virus 2021-06-24 Completed [facility]ine 00:00:00 [facility] SARS-COV-2 COVID-19 2021-06-24 Completed [facility] PFIZER VACCINE 00:00:00 [facility] Influenza Virus 2021-06-24 Completed [facility]ine 00:00:00 [facility] SARS-COV-2 COVID-19 2021-06-24 Completed [facility] PFIZER VACCINE 00:00:00 [facility] Influenza Virus 2021-06-24 Completed [facility]ine 00:00:00 [facility] SARS-COV-2 COVID-19 2021-06-24 Completed [facility] PFIZER VACCINE 00:00:00 [facility] Influenza Virus 2021-06-24 Completed [facility]ine 00:00:00 [facility] SARS-COV-2 COVID-19 2021-06-24 Completed [facility] PFIZER VACCINE 00:00:00 [facility] Influenza Virus 2021-06-24 Completed [facility] 00:00:00 [facility] SARS-COV-2 COVID-19 2021-06-24 Completed [facility] PFIZER VACCINE 00:00:00 [facility] Influenza Virus 2021-06-24 Completed [facility] 00:00:00 [facility] SARS-COV-2 COVID-19 2021-06-24 Completed [facility] PFIZER VACCINE 00:00:00 [facility] Influenza Virus 2021-06-24 Completed [facility] 00:00:00 [facility] SARS-COV-2 COVID-19 2021-06-24 Completed [facility] PFIZER VACCINE 00:00:00 [facility] Influenza Virus 2021-06-24 Completed [facility] 00:00:00 [facility] SARS-COV-2 COVID-19 2021-06-24 Completed [facility] PFIZER VACCINE 00:00:00 [facility] Influenza Virus 2021-06-24 Completed [facility]ine 00:00:00 [facility] SARS-COV-2 COVID-19 2021-06-24 Completed [facility] PFIZER VACCINE 00:00:00 [facility] Influenza Virus 2021-06-24 Completed [facility] 00:00:00 [facility] SARS-COV-2 COVID-19 2021-06-24 Completed [facility] PFIZER VACCINE 00:00:00 [facility] Influenza Virus 2021-06-24 Completed [facility] 00:00:00 [facility] SARS-COV-2 COVID-19 2021-06-24 Completed [facility] PFIZER VACCINE 00:00:00 [facility] Influenza Virus 2021-06-24 Completed [facility]ine 00:00:00 [facility] SARS-COV-2 COVID-19 2021-06-24 Completed [facility] PFIZER VACCINE 00:00:00 [facility] Influenza Virus 2021-06-24 Completed [facility] 00:00:00 [facility] SARS-COV-2 COVID-19 2020-10-08 Completed [facility] PFIZER VACCINE 00:00:00 [facility] SARS-COV-2 COVID-19 2020-10-08 Completed [facility] PFIZER VACCINE 00:00:00 [facility] SARS-COV-2 COVID-19 2020-10-08 Completed [facility] PFIZER VACCINE 00:00:00 [facility] SARS-COV-2 COVID-19 2020-10-08 Completed [facility] PFIZER VACCINE 00:00:00 [facility] SARS-COV-2 COVID-19 2020-10-08 Completed [facility] PFIZER VACCINE 00:00:00 [facility] SARS-COV-2 COVID-19 2020-10-08 Completed [facility] PFIZER VACCINE 00:00:00 [facility] SARS-COV-2 COVID-19 2020-10-08 Completed [facility] PFIZER VACCINE 00:00:00 [facility] SARS-COV-2 COVID-19 2020-10-08 Completed [facility] PFIZER VACCINE 00:00:00 [facility] SARS-COV-2 COVID-19 2020-10-08 Completed [facility] PFIZER VACCINE 00:00:00 [facility] SARS-COV-2 COVID-19 2020-10-08 Completed [facility] PFIZER VACCINE 00:00:00 [facility] SARS-COV-2 COVID-19 2020-10-08 Completed [facility] PFIZER VACCINE 00:00:00 [facility] SARS-COV-2 COVID-19 2020-10-08 Completed [facility] PFIZER VACCINE 00:00:00 [facility] SARS-COV-2 COVID-19 2020-10-08 Completed [facility] PFIZER VACCINE 00:00:00 [facility] SARS-COV-2 COVID-19 2020-10-08 Completed [facility] PFIZER VACCINE 00:00:00 [facility] SARS-COV-2 COVID-19 2020-10-08 Completed [facility] PFIZER VACCINE 00:00:00 [facility] SARS-COV-2 COVID-19 2020-10-08 Completed [facility] PFIZER VACCINE 00:00:00 [facility] SARS-COV-2 COVID-19 2020-10-08 Completed [facility] PFIZER VACCINE 00:00:00 [facility] SARS-COV-2 COVID-19 2020-10-08 Completed [facility] PFIZER VACCINE 00:00:00 [facility] SARS-COV-2 COVID-19 2020-10-08 Completed [facility] PFIZER VACCINE 00:00:00 [facility] SARS-COV-2 COVID-19 2020-10-08 Completed [facility] PFIZER VACCINE 00:00:00 [facility] SARS-COV-2 COVID-19 2020-10-08 Completed [facility] PFIZER VACCINE 00:00:00 [facility] SARS-COV-2 COVID-19 2020-10-08 Completed [facility] PFIZER VACCINE 00:00:00 [facility] SARS-COV-2 COVID-19 2020-10-08 Completed [facility] PFIZER VACCINE 00:00:00 [facility] SARS-COV-2 COVID-19 2020-10-08 Completed [facility] PFIZER VACCINE 00:00:00 [facility] SARS-COV-2 COVID-19 2020-10-08 Completed [facility] PFIZER VACCINE 00:00:00 [facility] SARS-COV-2 COVID-19 2020-10-08 Completed [facility] PFIZER VACCINE 00:00:00 [facility] SARS-COV-2 COVID-19 2020-10-08 Completed [facility] PFIZER VACCINE 00:00:00 [facility] SARS-COV-2 COVID-19 2020-10-08 Completed [facility] PFIZER VACCINE 00:00:00 [facility] SARS-COV-2 COVID-19 2020-10-08 Completed [facility] PFIZER VACCINE 00:00:00 [facility] SARS-COV-2 COVID-19 2020-10-08 Completed [facility] PFIZER VACCINE 00:00:00 [facility] SARS-COV-2 COVID-19 2020-10-08 Completed [facility] PFIZER VACCINE 00:00:00 [facility] SARS-COV-2 COVID-19 2020-10-08 Completed [facility] PFIZER VACCINE 00:00:00 [facility] SARS-COV-2 COVID-19 2020-10-08 Completed [facility] PFIZER VACCINE 00:00:00 [facility] SARS-COV-2 COVID-19 2020-10-08 Completed [facility] PFIZER VACCINE 00:00:00 [facility] SARS-COV-2 COVID-19 2020-10-08 Completed [facility] PFIZER VACCINE 00:00:00 [facility] SARS-COV-2 COVID-19 2020-10-08 Completed [facility] PFIZER VACCINE 00:00:00 [facility] SARS-COV-2 COVID-19 2020-10-08 Completed [facility] PFIZER VACCINE 00:00:00 [facility] SARS-COV-2 COVID-19 2020-10-08 Completed [facility] PFIZER VACCINE 00:00:00 [facility] SARS-COV-2 COVID-19 2020-10-08 Completed [facility] PFIZER VACCINE 00:00:00 [facility] SARS-COV-2 COVID-19 2020-10-08 Completed [facility] PFIZER VACCINE 00:00:00 [facility] SARS-COV-2 COVID-19 2020-10-08 Completed [facility] PFIZER VACCINE 00:00:00 [facility] SARS-COV-2 COVID-19 2020-10-08 Completed [facility] PFIZER VACCINE 00:00:00 [facility] SARS-COV-2 COVID-19 2020-10-08 Completed [facility] PFIZER VACCINE 00:00:00 [facility] SARS-COV-2 COVID-19 2020-10-08 Completed [facility] PFIZER VACCINE 00:00:00 [facility] SARS-COV-2 COVID-19 2020-10-08 Completed [facility] PFIZER VACCINE 00:00:00 [facility] SARS-COV-2 COVID-19 2020-10-08 Completed [facility] PFIZER VACCINE 00:00:00 [facility] SARS-COV-2 COVID-19 2020-10-08 Completed [facility] PFIZER VACCINE 00:00:00 [facility] SARS-COV-2 COVID-19 2020-10-08 Completed [facility] PFIZER VACCINE 00:00:00 [facility] SARS-COV-2 COVID-19 2020-10-08 Completed [facility] PFIZER VACCINE 00:00:00 [facility] SARS-COV-2 COVID-19 2020-10-08 Completed [facility] PFIZER VACCINE 00:00:00 [facility] SARS-COV-2 COVID-19 2020-10-08 Completed [facility] PFIZER VACCINE 00:00:00 [facility] SARS-COV-2 COVID-19 2020-10-08 Completed [facility] PFIZER VACCINE 00:00:00 [facility] SARS-COV-2 COVID-19 2020-10-08 Completed [facility] PFIZER VACCINE 00:00:00 [facility] SARS-COV-2 COVID-19 2020-10-08 Completed [facility] PFIZER VACCINE 00:00:00 [facility] SARS-COV-2 COVID-19 2020-09-17 Completed [facility] PFIZER VACCINE 00:00:00 [facility] SARS-COV-2 COVID-19 2020-09-17 Completed [facility] PFIZER VACCINE 00:00:00 [facility] SARS-COV-2 COVID-19 2020-09-17 Completed [facility] PFIZER VACCINE 00:00:00 [facility] SARS-COV-2 COVID-19 2020-09-17 Completed [facility] PFIZER VACCINE 00:00:00 [facility] SARS-COV-2 COVID-19 2020-09-17 Completed [facility] PFIZER VACCINE 00:00:00 [facility] SARS-COV-2 COVID-19 2020-09-17 Completed [facility] PFIZER VACCINE 00:00:00 [facility] SARS-COV-2 COVID-19 2020-09-17 Completed [facility] PFIZER VACCINE 00:00:00 [facility] SARS-COV-2 COVID-19 2020-09-17 Completed [facility] PFIZER VACCINE 00:00:00 [facility] SARS-COV-2 COVID-19 2020-09-17 Completed [facility] PFIZER VACCINE 00:00:00 [facility] SARS-COV-2 COVID-19 2020-09-17 Completed [facility] PFIZER VACCINE 00:00:00 [facility] SARS-COV-2 COVID-19 2020-09-17 Completed [facility] PFIZER VACCINE 00:00:00 [facility] SARS-COV-2 COVID-19 2020-09-17 Completed [facility] PFIZER VACCINE 00:00:00 [facility] SARS-COV-2 COVID-19 2020-09-17 Completed [facility] PFIZER VACCINE 00:00:00 [facility] SARS-COV-2 COVID-19 2020-09-17 Completed [facility] PFIZER VACCINE 00:00:00 [facility] SARS-COV-2 COVID-19 2020-09-17 Completed [facility] PFIZER VACCINE 00:00:00 [facility] SARS-COV-2 COVID-19 2020-09-17 Completed [facility] PFIZER VACCINE 00:00:00 [facility] SARS-COV-2 COVID-19 2020-09-17 Completed [facility] PFIZER VACCINE 00:00:00 [facility] SARS-COV-2 COVID-19 2020-09-17 Completed [facility] PFIZER VACCINE 00:00:00 [facility] SARS-COV-2 COVID-19 2020-09-17 Completed [facility] PFIZER VACCINE 00:00:00 [facility] SARS-COV-2 COVID-19 2020-09-17 Completed [facility] PFIZER VACCINE 00:00:00 [facility] SARS-COV-2 COVID-19 2020-09-17 Completed [facility] PFIZER VACCINE 00:00:00 [facility] SARS-COV-2 COVID-19 2020-09-17 Completed [facility] PFIZER VACCINE 00:00:00 [facility] SARS-COV-2 COVID-19 2020-09-17 Completed [facility] PFIZER VACCINE 00:00:00 [facility] SARS-COV-2 COVID-19 2020-09-17 Completed [facility] PFIZER VACCINE 00:00:00 [facility] SARS-COV-2 COVID-19 2020-09-17 Completed [facility] PFIZER VACCINE 00:00:00 [facility] SARS-COV-2 COVID-19 2020-09-17 Completed [facility] PFIZER VACCINE 00:00:00 [facility] SARS-COV-2 COVID-19 2020-09-17 Completed [facility] PFIZER VACCINE 00:00:00 [facility] SARS-COV-2 COVID-19 2020-09-17 Completed [facility] PFIZER VACCINE 00:00:00 [facility] SARS-COV-2 COVID-19 2020-09-17 Completed [facility] PFIZER VACCINE 00:00:00 [facility] SARS-COV-2 COVID-19 2020-09-17 Completed [facility] PFIZER VACCINE 00:00:00 [facility] SARS-COV-2 COVID-19 2020-09-17 Completed [facility] PFIZER VACCINE 00:00:00 [facility] SARS-COV-2 COVID-19 2020-09-17 Completed Unive rsity of PFIZER VACCINE 00:00:00 [facility] SARS-COV-2 COVID-19 2020-09-17 Completed Unive rsity of PFIZER VACCINE 00:00:00 [facility] SARS-COV-2 COVID-19 2020-09-17 Completed Unive rsity of PFIZER VACCINE 00:00:00 [facility] SARS-COV-2 COVID-19 2020-09-17 Completed Unive rsity of PFIZER VACCINE 00:00:00 [facility] SARS-COV-2 COVID-19 2020-09-17 Completed Unive rsity of PFIZER VACCINE 00:00:00 [facility] SARS-COV-2 COVID-19 2020-09-17 Completed Unive rsity of PFIZER VACCINE 00:00:00 [facility] SARS-COV-2 COVID-19 2020-09-17 Completed Unive rsity of PFIZER VACCINE 00:00:00 [facility] SARS-COV-2 COVID-19 2020-09-17 Completed Unive rsity of PFIZER VACCINE 00:00:00 [facility] SARS-COV-2 COVID-19 2020-09-17 Completed Unive rsity of PFIZER VACCINE 00:00:00 [facility] SARS-COV-2 COVID-19 2020-09-17 Completed Unive rsity of PFIZER VACCINE 00:00:00 [facility] SARS-COV-2 COVID-19 2020-09-17 Completed Unive rsity of PFIZER VACCINE 00:00:00 [facility] SARS-COV-2 COVID-19 2020-09-17 Completed Unive rsity of PFIZER VACCINE 00:00:00 [facility] SARS-COV-2 COVID-19 2020-09-17 Completed Unive rsity of PFIZER VACCINE 00:00:00 [facility] SARS-COV-2 COVID-19 2020-09-17 Completed Unive rsity of PFIZER VACCINE 00:00:00 [facility] SARS-COV-2 COVID-19 2020-09-17 Completed Unive rsity of PFIZER VACCINE 00:00:00 [facility] SARS-COV-2 COVID-19 2020-09-17 Completed Unive rsity of PFIZER VACCINE 00:00:00 [facility] SARS-COV-2 COVID-19 2020-09-17 Completed Unive rsity of PFIZER VACCINE 00:00:00 [facility] SARS-COV-2 COVID-19 2020-09-17 Completed Unive rsity of PFIZER VACCINE 00:00:00 [facility] SARS-COV-2 COVID-19 2020-09-17 Completed Unive rsity of PFIZER VACCINE 00:00:00 [facility] SARS-COV-2 COVID-19 2020-09-17 Completed Unive rsity of PFIZER VACCINE 00:00:00 [facility] SARS-COV-2 COVID-19 2020-09-17 Completed Unive rsity of PFIZER VACCINE 00:00:00 [facility] SARS-COV-2 COVID-19 2020-09-17 Completed Unive rsity of PFIZER VACCINE 00:00:00 [facility] SARS-COV-2 COVID-19 2020-09-17 Completed Unive rsity of PFIZER VACCINE 00:00:00 [facility] Vital Signs Vital Name Observation Time Observation Value Comments Source Systolic blood 2022-09-15 13:52:00 112 mm[Hg] Univer sity of pressure [facility] Diastolic blood 2022-09-15 13:52:00 79 mm[Hg] Unive rsity of pressure [facility] Heart rate 2022-09-15 13:52:00 97 /[facility] 2022-09-15 13:52:00 37.28 Isaura [facility] height 2022-09-15 13:52:00 152.4 cm General acute hospital Body weight 2022-09-15 13:52:00 63.504 kg General acute hospital BMI 2022-09-15 13:52:00 27.34 kg/m2 General acute hospital Oxygen saturation in 2022-09-15 13:52:00 96 /min [facility] Arterial blood by [facility] Pulse oximetry Branch Systolic blood 2022-09-10 20:41:00 136 mm[Hg] Univer sity of pressure [facility] Diastolic blood 2022-09-10 20:41:00 81 mm[Hg] Unive rsity of pressure [facility] Heart rate 2022-09-10 20:41:00 78 /min Universi ty [facility] Body temperature 2022-09-10 20:41:00 36.72 Isaura [facility] Respiratory rate 2022-09-10 20:41:00 18 /min Univ ersity of [facility] Body weight 2022-09-10 20:41:00 65 kg [facility] BMI 2022-09-10 20:41:00 27.99 kg/m2 [facility] Oxygen saturation in 2022-09-10 20:41:00 99 /min University of Arterial blood by [place] [employer] nora Pulse oximetry Branch Systolic blood 2022-08-05 21:44:00 128 mm[Hg] Univer sity of pressure [facility] Diastolic blood 2022-08-05 21:44:00 82 mm[Hg] Unive rsity of pressure [facility] Heart rate 2022-08-05 21:44:00 64 /min [facility] Respiratory rate 2022-08-05 21:44:00 20 /min Univ ersity [facility] Body height 2022-08-05 21:44:00 152.4 cm [facility] Body weight 2022-08-05 21:44:00 66.679 kg [facility] BMI 2022-08-05 21:44:00 28.71 kg/m2 [facility] Oxygen saturation in 2022-08-05 21:44:00 98 /min University of Arterial blood by [facility] Pulse oximetry Branch Systolic blood 2022-07-29 18:32:00 129 mm[Hg] Univer sity of pressure [facility] Diastolic blood 2022-07-29 18:32:00 87 mm[Hg] Unive rsity of pressure [facility] Heart rate 2022-07-29 18:32:00 70 /min [facility] Body height 2022-07-29 18:32:00 152.4 cm [facility] Body weight 2022-07-29 18:32:00 67.677 kg [facility] BMI 2022-07-29 18:32:00 29.14 kg/m2 [facility] Oxygen saturation in 2022-07-29 18:32:00 98 /min University of Arterial blood by [facility] Pulse oximetry Branch Systolic blood 2022-07-23 19:16:00 127 mm[Hg] Univer sity of [facility] Diastolic blood 2022-07-23 19:16:00 80 mm[Hg] Unive rsity of pressure [facility] Heart rate 2022-07-23 19:16:00 65 /min [facility] Body height 2022-07-23 19:16:00 152.4 cm [facility] Body weight 2022-07-23 19:16:00 65.318 kg [facility] BMI 2022-07-23 19:16:00 28.12 kg/m2 [facility] Systolic blood 2022-07-23 18:09:00 127 mm[Hg] Univer sity of [facility] Diastolic blood 2022-07-23 18:09:00 80 mm[Hg] Unive rsity of pressure [facility] Heart rate 2022-07-23 18:09:00 65 /min [facility] Body temperature 2022-07-23 18:09:00 36.72 Isaura Univ ersity [facility] Body height 2022-07-23 18:09:00 152.4 cm [facility] Body weight 2022-07-23 18:09:00 65.635 kg [facility] BMI 2022-07-23 18:09:00 28.26 kg/m2 [facility] Systolic blood 2022-07-15 00:44:00 142 mm[Hg] Univer [facility]ity of [facility] Diastolic blood 2022-07-15 00:44:00 89 mm[Hg] Unive rsity of pressure [facility] Heart rate 2022-07-15 00:43:00 71 /min [facility] Body temperature 2022-07-15 00:43:00 36.44 Isaura Univ ersity [facility] Respiratory rate 2022-07-15 00:43:00 18 /min Univ ersity [facility] Body height 2022-07-15 00:43:00 152.4 cm [facility] Body weight 2022-07-15 00:43:00 66.497 kg [facility] BMI 2022-07-15 00:43:00 28.63 kg/m2 [facility] Oxygen saturation in 2022-07-15 00:43:00 98 /min University of Arterial blood by [facility] Pulse oximetry Branch Systolic blood 2022-06-17 13:31:00 130 mm[Hg] manual Univer sity of [facility] Diastolic blood 2022-06-17 13:31:00 80 mm[Hg] manual Unive rsity of pressure [facility] Heart rate 2022-06-17 13:03:00 67 /min [facility] [place] Body height 2022-06-17 13:03:00 152.4 cm [facility] [place] Body weight 2022-06-17 13:03:00 66.316 kg [facility] BMI 2022-06-17 13:03:00 28.55 kg/m2 [facility] Oxygen saturation in 2022-06-17 13:03:00 98 /min University of Arterial blood by [facility] Pulse oximetry Branch Systolic blood 2022-05-20 14:08:00 131 mm[Hg] Univer sity of pressure [facility] Diastolic blood 2022-05-20 14:08:00 80 mm[Hg] Unive rsity of pressure [facility] Heart rate 2022-05-20 14:08:00 71 /min [facility] Body height 2022-05-20 14:08:00 152.4 cm [facility] Body weight 2022-05-20 14:08:00 65.59 kg [facility] BMI 2022-05-20 14:08:00 28.24 kg/m2 [facility] Oxygen saturation in 2022-05-20 14:08:00 98 /min University of Arterial blood by [facility] Pulse oximetry Branch Procedures Procedure Date / Time Performing Clinician Source Performed POCT MOLECULAR FLU 2022-09-15 13:50:00 Cameron Rojas [facility] y [facility] POCT MOLECULAR STREP 2022-09-15 13:48:00 Cameron Rojas [facility] CONSENT/REFUSAL FOR 2022-08-18 15:39:00 Doctor Unassigned, No [facility] DI[facility]NOSIS AND TREATMENT Name Medical Branch EXTERNAL PROVIDER - ADC 2022-08-09 06:01:00 Doctor Unassigned, N o [facility] CARDIOLOGY Name Medical Branch INSULIN LIKE GROWTH 2022-07-29 12:37:00 [facility]omenic [facility] Medical Branch CORTISOL AM 2022-07-29 12:37:00 Domenic Webster [facility] THYROID STIMULATING 2022-07-29 12:37:00 Rufina [facility] HORMONE Medical Branch COMP. METABOLIC PANEL 2022-07-29 12:37:00 Rufina [facility] ([id number]) Medical Branch LIPID PANEL 2022-07-29 12:37:00 [facility] ([id number])(TOTAL Medical Branch CHOLESTEROL, TRIGLYCERIDES, HDL) CBC WITH DIFF 2022-07-29 12:37:00 Rufina [facility] GLYCOSYLATED HEMOGLOBIN 2022-07-29 12:37:00 [facility] (A1C) [facility] Branch AUTHORIZATION TO RELEASE 2022-07-29 05:01:00 Doctor Unassigned, No [facility] PHI TO [facility] Name Medical [place] POCT URINALYSIS W/O 2022-07-23 00:00:00 Miguel Almaraz [facility] SPECIFIC GRAVITY Medical Branch ASSIGNMENT OF BENEFITS 2022-07-15 00:27:58 Doctor Unassigned, No [facility] FLU VACC ([id number]), 6 2022-06-17 13:37:29 Missy Templeton [facility] MO-65 YRS, .5ML, IM, Medical [facility] QUAD (FLUCELVAX) AUTHORIZATION TO RELEASE 2022-06-15 05:01:00 Doctor Unassigned, No [facility] PHI TO [facility] EXTERNAL PROVIDER 2022-06-03 05:01:00 Doctor Unassigned, No [facility] RECORDS [facility] Medical [place] COMP. METABOLIC PANEL 2022-05-20 15:07:00 Missy Templeton [facility] ([id number]) Medical Branch CBC WITH DIFF 2022-05-20 15:07:00 [facility] Plan [facility] Care Planned Activity Planned Date Details Comments Source Encounters Start End Encounter Admission Attending Care Care Encounter Source Date/Time Date/Time Type Type Clinicians Facility Department ID 2021-07-25 Emergency [facility] [id number] Univers 17:03:40 ity [facility] 2021-07-25 Emergency [facility] [id number] Univers 03:34:22 ity [facility] 2022-09-18 2022-09-18 Outpatient Star TEMPLETON [facility] [id number] Univers 12:00:00 12:00:00 MISSY itdelores [facility] 2022-09-16 2022-09-16 Telephone [facility] [id number] Univers 00:00:00 00:00:00 [facility] 350.1.13.10 it y of [place] 4.2.7.2.686 Chao as ONESIMO?BLEA [id number] [address] MEDICAL OFFICE [facility] 2022-09-15 2022-09-15 Outpatient [facility] [id number] Univers 07:45:00 08:17:16 CAMERON alaniz [facility] 2022-09-15 2022-09-15 [facility] 1.2.840.114 [id number] Univers 07:45:00 08:00:00 Visit [facility] 350.1.13.10 it y of [place] 4.2.7.2.686 Chao as ONESIMO?BLEA [phone] [address] MEDICAL OFFICE [facility] 2022-09-15 2022-09-15 Letter [facility] 1.2.840.114 [id number] Univers 00:00:00 00:00:00 (Out) Cameron HEALTH 350.1.13.10 it y of [place] 4.2.7.2.686 Chao as ONESIMO?BLEA [id number] [address] MEDICAL OFFICE [facility] 2022-09-15 2022-09-15 Telephone [facility] [id number] Univers 00:00:00 00:00:00 Cameron HEALTH 350.1.13.10 it y of [place] 4.2.7.2.686 Chao as ONESIMO?BLEA [id number] [address] MEDICAL OFFICE [facility] 2022-09-14 2022-09-14 Outpatient Star TEMPLETON [facility] [id number] Univers 18:40:00 18:40:00 MISSY ity of [facility] 2022-09-10 2022-09-10 Outpatient R RUFINA MIGUEL [facility] [id number] Univers 10:42:41 23:59:00 ity of [facility] 2022-09-10 2022-09-10 [facility] Miguel Almaraz [facility] 1.2.840.114 [id number] Univers 10:20:00 23:59:00 Encounter Shaun SLATER 350.1.13.10 ity [facility] 4.2.7.2.686 [facility] [phone] [facility] 800 Branch 2022-09-10 2022-09-10 Office [facility] [id number] Univers 15:00:00 16:03:03 Visit Destiny LOTT 350.1.13.10 ity of [place] 4.2.7.2.[address] [facility] [id number] [facility] AND SHREVE 417 Branch [facility] 2022-08-18 2022-08-18 Outpatient R LINK [facility] [id number] Univers 09:39:41 23:59:00 SANTOS alaniz o f [facility] 2022-08-18 2022-08-18 Orders Doctor GOLDEN 1.2.840.114 [id number] Univers 00:00:00 00:00:00 Only Unassigned, ROBERTA 350.1.13.10 ity of [place] [facility] 4.2.7.2.686 Chao [phone] [facility] 009 Branch 2022-08-18 2022-08-18 Letter [facility]TOH[facility]I [facility] 1.2.840.114 [id number] Univers 00:00:00 00:00:00 (Out) Santos SLATER 350.1.13.10 ity of [place] 4.2.7.2.686 [facility] [phone] [facility] 059 [facility] 2022-08-18 2022-08-18 Telephone [facility] [id number] Univers 00:00:00 00:00:00 Missy HEALTH 350.1.13.10 it y of [place] 4.2.7.2.686 Chao as ONESIMO?BLEA [id number] Ar ruby [place] [address] [place] MEDICAL OFFICE [facility] 2022-08-16 2022-08-16 Outpatient R LINK [facility] [id number] Univers 10:00:00 10:00:00 SANTSO alaniz o f [facility] 2022-08-11 2022-08-11 Patient Jessidc [facility] 1.2.840.114 [id number] Univers 00:00:00 00:00:00 Secure Msg Missy HEALTH 350.1.13.10 ity [facility] 4.2.7.2.686 Chao as ONESIMO?BLEA [phone] [facility] 044 [facility] OFFICE [facility] 2022-08-11 2022-08-11 Patient Jurgen [facility] [id number] Univers 00:00:00 00:00:00 Secure Ms Domenic [employer] Relations HEALTH 350.1.13.10 ity of [place] 4.2.7.2.686 Chao as ONESIMO?BLEA [phone] Ar ruby SANZ 220 [facility] OFFICE [facility] 2022-08-09 2022-08-09 Patient Jurgen [facility] [id number] Univers 00:00:00 00:00:00 Secure [facility] Hyper9 HEALTH 350.1.13.10 ity of [place] 4.2.7.2.686 Chao as ONESIMO?BLEA [id number] [facility] 220 [facility] OFFICE [facility] 2022-08-09 2022-08-09 Orders Doctor GOLDEN 1.2.840.114 [id number] Univers 00:00:00 00:00:00 Only Unassigned, ROBERTA 350.1.13.10 ity of [place] [facility] 4.2.7.2.686 Chao as [phone] [address] 2022-08-06 2022-08-06 Occupational Health And Safety Adviser 2, Adc Lab [facility] 1.2.840.114 [id number] Univers 16:15:00 16:29:25 Visit Miguel Almaraz 350.1.13.10 ity of [place] 4.2.7.2.[place] [phone] Ar dical NAL 353 [facility] 2022-08-06 2022-08-06 Outpatient R MIGUEL ALMARAZ [facility] [id number] Univers 16:15:00 16:15:00 ity of [facility] 2022-08-06 2022-08-06 Telephone Miguel Almaraz [facility] 1.2.840.114 [id number] Univers 00:00:00 00:00:00 Cam [place] 350.1.13.10 i ty of [facility] 4.2.7.2.686 [place] [phone] Ar dical NAL 134 [facility] 2022-08-06 2022-08-06 Telephone [facility]TOH[facility]I [facility] [id number] Univers 00:00:00 00:00:00 Santos [place] 350.1.13.10 ity of [facility] 4.2.7.2.[place] [phone] Ar dical NAL 059 [facility] 2022-08-05 2022-08-05 Outpatient R LINK [facility] [id number] Univers 15:20:00 16:30:07 SANTOS ity o f [facility] 2022-08-05 2022-08-05 Office [facility] 1.2.840.114 [id number] Univers 15:20:00 16:30:07 Visit Santos SLATER 350.1.13.10 ity of [facility] 4.2.7.2.[place] [phone] Ar dical NAL 059 [facility] 2022-08-05 2022-08-05 Telephone [facility]TOHATCHI [facility] [id number] Univers 00:00:00 00:00:00 Missy HEALTH 350.1.13.10 it y of [facility] 4.2.7.2.686 Chao as ONESIMO?BLEA [phone] Ar dical KNEY 044 [facility] OFFICE [facility] 2022-08-04 2022-08-04 Telephone AlmarazYvonneen [facility] 1.2.840.114 [id number] Univers 00:00:00 00:00:00 Shaun FERNANDEZTON 350.1.13.10 i ty of [facility] 4.2.7.2.[place] [phone] Ar dical NAL 134 [facility] 2022-08-04 2022-08-04 Telephone Jurgen [facility] 1.2.840.114 [id number] Univers 00:00:00 00:00:00 Domenic HEALTH 350.1.13.10 it y of [facility] 4.2.7.2.686 Chao as ONESIMO?BLEA [phone] Ar dical YVON [address] [place] MEDICAL OFFICE [facility] 2022-07-30 2022-07-30 Case Rufina [facility] [id number] Univers 00:00:00 00:00:00 Management Cam [place] 350.1.13.10 it[place] [phone] Ar dical NAL 134 [facility] 2022-07-29 2022-07-29 Office Jareth [facility] 1.2.840.114 [id number] Univers 13:30:00 14:06:54 Visit [facility] 350.1.13.10 it y of [place] 4.2.7.2.686 Chao as ONESIMO?BLEA [phone] Ar diclotus SANZ 044 [facility] OFFICE [facility] 2022-07-29 2022-07-29 Outpatient R MIGUEL ALMARAZ [facility] [id number] Univers 07:30:00 07:48:04 ity of [facility] 2022-07-29 2022-07-29 Occupational Health And Safety Adviser Lab, Jose - Lacho [facility] 1.2.840.1 [id number] Univers 07:30:00 07:48:04 Visit Miguel Almaraz [facility] 350.1.13.10 ity of [place] 4.2.7.2.686 Chao as ONESIMO?BLEA [phone] Ar diclotus SANZ 353 [facility] OFFICE [facility] 2022-07-29 2022-07-29 Orders Doctor FRANKS 1.2.840.114 [id number] Univers 00:00:00 00:00:00 Only Unassigned, ROBERTA 350.1.13.10 ity of [place] [facility] 4.2.7.2.686 Chao as [phone] [facility] [address] [place] 2022-07-23 2022-07-23 Outpatient R JURGEN [facility] [id number] Univers 15:00:00 15:49:47 DOMENIC itdelores [facility] 2022-07-23 2022-07-23 Office [facility] [id number] Univers 15:00:00 15:49:47 Visit Domenic [facility] 350.1.13.10 it y of [place] 4.2.7.2.686 Chao as ONESIMO?BLEA [id number] [facility] [address] [place] MEDICAL OFFICE [facility] 2022-07-23 2022-07-23 Office Miguel Almaraz [facility] 1.2.840.114 [id number] Univers 13:00:00 13:32:32 Visit Shaun WYNN 350.1.13.10 it y of [facility] 4.2.7.2.686 [facility] [id number] [facility] 134 Branch 2022-07-14 2022-07-14 Outpatient R MICHAEL [facility] [id number] Univers 19:40:00 19:54:18 ELI alaniz [facility] 2022-07-14 2022-07-14 Urgent Eli Hoffmann [facility] 1.2.840.114 [id number] Univers 19:40:00 19:54:18 Care Unknown, Attending HEALTH 350.1.13.10 ity of [place] 4.2.7.2.686 Chao as ONESIMO?BLEA [id number] Ar ruby SANZ [address] [place] MEDICAL OFFICE [facility] 2022-07-14 2022-07-14 Orders Doctor FRANKS 1.2.840.114 [id number] Univers 00:00:00 00:00:00 Only Unassigned, ROBERTA 350.1.13.10 ity of [place] [facility] 4.2.7.2.686 Chao as [phone] [address] 2022-07-14 2022-07-14 Nurse GOLDEN Jeffers 1.2.840.114 [id number] Univers 00:00:00 00:00:00 Triage Quyneshia L ROBERTA 350.1.13.10 ity of HOSPITAL 4.2.7.2.686 Chao as [phone] [address] 2022-07-09 2022-07-09 Telephone [facility] [id number] [id number] Univers 00:00:00 00:00:00 Missy HEALTH 350.1.13.10 it y of [place] 4.2.7.2.686 Chao as ONESIMO?BLEA [id number] [address] MEDICAL OFFICE [facility] 2022-07-02 2022-07-02 [facility] [id number] Univers 10:40:00 10:40:00 BRILAURA ity o f [facility] 2022-06-17 2022-06-17 Outpatient [facility] [id number] Univers 08:00:00 08:48:29 MISSY itdelores [facility] 2022-06-17 2022-06-17 Office [facility] 1.2.840.114 [id number] Univers 08:00:00 08:48:29 Visit Missy HEALTH 350.1.13.10 it y [facility] 4.2.7.2.686 Chao as ONESIMO?BLEA [id number] [address] MEDICAL OFFICE [facility] 2022-06-15 2022-06-15 Orders Doctor GOLDEN 1.2.840.114 [id number] Univers 00:00:00 00:00:00 Only Unassigned, ROBERTA 350.1.13.10 ity of [place] [facility] 4.2.7.2.686 Chao as [id number] [address] 2022-06-14 2022-06-14 Outpatient R JARETH [facility] [id number] Univers 08:00:00 08:00:00 MISSY ity [facility] 2022-06-03 2022-06-03 Orders Doctor GOLDEN 1.2.840.114 [id number] Univers 00:00:00 00:00:00 Only Unassigned, ROBERTA 350.1.13.10 ity of [place] [facility] 4.2.7.2.686 Chao as [phone] [address] 2022-05-20 2022-05-20 Occupational Health And Safety Adviser Lab, Ang - Db [facility] 1.2.840.1 [id number] Univers 09:45:00 10:00:00 Visit Missy [facility] 350.1.13.10 ity of [place] 4.2.7.2.686 Chao as ONESIMO?BLEA [phone] Ar diclotus SANZ [address] [facility] 2022-05-20 2022-05-20 Outpatient R JARETH [facility] [id number] Univers 09:00:00 09:53:11 MISSY ity of [facility] 2022-05-20 2022-05-20 [facility] 1.2.840.114 [id number] Univers 09:00:00 09:53:11 Visit Missy Zoom 350.1.13.10 it y of [place] 4.2.7.2.686 Chao as ONESIMO?BLEA [phone] Ar ruby SANZ [address] MEDICAL OFFICE [facility] 2022-05-20 2022-05-20 Telephone Jareth [facility] 1.2.544.459 [id number] Univers 00:00:00 00:00:00 Missy HEALTH 350.1.13.10 it y of [place] 4.2.7.2.686 Chao as ONESIMO?BLEA [phone] Ar ruby [place] [address] MEDICAL OFFICE [facility] 2022-05-18 2022-05-18 Abstract Jareth [facility] 1.2.840.114 [id number] Univers 00:00:00 00:00:00 Missy HEALTH 350.1.13.10 it y of [place] 4.2.7.2.686 Chao as ONESIMO?BLEA [id number] [facility] [address] MEDICAL OFFICE BUILDING 2022-04-01 2022-04-01 Letter Nelson [facility] 1.2.880.729 [id number] Univers 00:00:00 00:00:00 (Out) Ang Db HEALTH 350.1.13.10 it y of Urgent Care [place] 4.2.7.2.686 [place] ONESIMO?BLEA [phone] Ar dicoh MALOU [address] MEDICAL OFFICE BUILDING 2022-03-31 2022-03-31 Outpatient R [facility] [id number] Univers 17:15:00 17:15:00 ity of [facility] 2022-03-31 2022-03-31 Outpatient R KRISTA [facility] [id number] Univers 12:15:00 12:34:43 ANDIE ity o f [facility] 2022-03-31 2022-03-31 Laboratory Only, Ang Db Test [facility] 1.2.8 40.114 [id number] Univers 12:15:00 12:30:00 Only Unknown, Attending [facility] 350.1.13.10 ity of [place] 4.2.7.2.686 Chao as ONESIMO?BLEA [id number] Ar ruby [place] 370 [facility] OFFICE [facility] 2022-03-30 2022-03-30 Outpatient R JIM [facility] [id number] Univers 16:30:00 16:30:00 [facility] 2022-03-22 2022-03-22 [facility] [id number] Univers 09:15:00 10:13:27 OPAL yajairadelores [facility] 2022-03-22 2022-03-22 Office [facility] 1.2.844.597 [id number] Univers 09:15:00 10:13:27 Visit Opal MOLLYKEY 350.1.13.10 i ty of [place] 4.2.7.2.[place] [id number] Ar ruby EATON [address] [facility] 2022-03-11 2022-03-11 Outpatient R SARAH [facility] [id number] Univers 14:30:00 15:56:36 [facility]ENDY [facility] 2022-03-11 2022-03-11 Office [facility] 1.2.840.114 [id number] Univers 14:30:00 15:56:36 Visit [facility] 350.1.13.10 it y of [place]2.7.2.686 [place] - [phone] Med ical [facility] [address] 2022-03-05 2022-03-05 Telephone [facility] 1.2.655.160 [id number] Univers 00:00:00 00:00:00 Missy HEALTH 350.1.13.10 it y of [place] 4.2.7.2.686 Chao as ONESIMO?BLEA [id number] [address] OFFICE [facility] 2022-03-03 2022-03-03 Telephone [facility] 1.2.484.013 [id number] Univers 00:00:00 00:00:00 Missy HEALTH 350.1.13.10 it y of [place] 4.2.7.2.686 [place]ao as ONESIMO?BLEA [phone] [address] 2022-03-02 2022-03-02 Occupational Health And Safety Adviser 2, Adc Lab [facility] 1.2.840.114 [id number] Univers 14:15:00 14:30:00 Visit Grace Templetonthia BRYON 350.1.13.10 ity of [place].2.7.2.[place] [phone] [address] 2022-03-02 2022-03-02 Outpatient R [facility] [id number] Univers 14:15:00 14:15:00 MISSY ity [facility] 2022-03-02 2022-03-02 Telephone [facility] 1.2.612.276 [id number] Univers 00:00:00 00:00:00 Missy HEALTH 350.1.13.10 it y of [place] 4.2.7.2.686 Chao as ONESIMO?BLEA [phone] [address] OFFICE [facility] 2022-03-01 2022-03-01 Outpatient R [facility] [id number] Univers 16:00:00 17:05:39 MISSY ity [facility] 2022-03-01 2022-03-01 Office [facility] 1.2.840.114 [id number] Univers 16:00:00 17:05:39 Visit Missy HEALTH 350.1.13.10 it y of [place] 4.2.7.2.686 Chao as ONESIMO?BLEA [phone] Me dical YVON [address] MEDICAL OFFICE [facility] 2022-02-02 2022-02-02 [facility] 1.2.840.114 [id number] Univers 17:29:08 23:59:00 Encounter Elmira HEALTH 350.1.13.10 ity of [place] 4.2.7.2.686 Chao as ONESIMO?BLEA [phone] Me diclotus SANZ 808 [facility] OFFICE [facility] 2022-02-02 2022-02-02 Outpatient R [facility] [id number] Univers 17:00:00 17:48:05 ELMIRA alaniz [facility] 2022-02-02 2022-02-02 [facility] Charlie [facility] 1.2.840.114 [id number] Univers 17:00:00 17:48:05 Care Rah [facility] 350.1.13.10 ity of [place] 4.2.7.2.686 Chao as ONESIMO?BLEA [id number] Ar ruby SANZ 370 [facility] OFFICE [facility] 2022-02-02 2022-02-02 Outpatient R JARETH [facility] [id number] Univers 16:00:00 16:00:00 MISSY corbin [facility] 2022-02-02 2022-02-02 [facility] 1.2.722.079 [id number] Univers 00:00:00 00:00:00 [facility] 350.1.13.10 it y of [place] 4.2.7.2.686 Chao as ONESIMO?BLEA [id number] Ar ruby SANZ 370 [facility] OFFICE [facility] 2022-02-01 2022-02-01 Outpatient R BECKMAN [facility] [id number] Univers 16:15:00 16:41:01 KEDAR alaniz [facility] 2022-02-01 2022-02-01 Office [facility] 1.2.743.215 [id number] Univers 16:15:00 16:41:01 Visit [facility] Zoom 350.1.13.10 it y of [place] 4.2.7.2.686 Chao as ONESIMO?BLEA [phone] Ar ruby SANZ 198 [facility] OFFICE [facility] 2021-12-31 2021-12-31 Occupational Health And Safety Adviser Lab, Ang - Db [facility] 1.2.840.1 14 [id number] Univers 11:45:00 12:00:00 Visit Kedar Beckman [facility] 350.1.13.10 ity of [place] 4.2.7.2.686 Chao as ONESIMO?BLEA [id number] Ar ruby SANZ 353 [facility] 2021-12-31 2021-12-31 Outpatient [facility] [id number] Univers 11:15:00 11:42:25 KEDAR [facility] 2021-12-31 2021-12-31 Office [facility] 1..549.644 [id number] 0371 Univers 11:15:00 11:42:25 [facility] 350.1.13.10 it y of [place] 4.2.7.2.686 Chao as ONESIMO?BLEA [phone] Ar ruby SANZ 198 [facility] 2021-12-18 2021-12-18 Outpatient FABRIZIO BENZ [facility] [id number] Univers 11:20:00 11:20:00 FABRIZIO PADILLA [facility] 2021-12-15 2021-12-15 Outpatient FABRIZIO BENZ [facility] [id number] Univers 16:00:00 16:37:29 FABRIZIO PADILLA [facility] 2021-12-15 2021-12-15 Office [facility] 1.2.840.114 [id number] Univers 16:00:00 16:37:29 Visit [facility] 350.1.13.10 ity of [place] 4.2.7.2.686 Chao as ONESIMO?BLEA [phone] Ar ruby SANZ 092 [facility] 2021-12-15 2021-12-15 Letter Bettina [facility] 1.2.840.114 [id number] Univers 00:00:00 00:00:00 (Out) [facility] 350.1.13.10 ity of [place] 4.2.7.2.686 Chao as ONESIMO?BLEA [id number] Ar dical YVON [address] MEDICAL OFFICE BUILDING 2021-12-14 2021-12-14 Outpatient R FABRIZIO PADILLA [facility] [id number] Univers 11:20:00 11:20:00 FABRIZIO PADILLA corbin [facility] 2021-12-07 2021-12-07 Outpatient Star FERNANDO [facility] [id number] Univers 15:30:00 16:03:57 KATHRYN gatesdelores [facility] 2021-12-07 2021-12-07 Outpatient R ABDULLAHI [facility] [id number] Univers 13:30:00 13:30:00 KATHRYN alaniz [facility] 2021-11-27 2021-11-27 Outpatient FABRIZIO BENZ [facility] [id number] Univers 09:20:00 10:04:06 FABRIZIO PADILLA [facility] 2021-11-17 2021-11-17 Outpatient Star BROWN [facility] [id number] Univers 10:13:41 23:59:00 [facility]INA [facility] 2021-11-17 2021-11-17 [facility] 1.2.293.903 [id number] Univers 10:13:41 23:59:00 Encounter [facility] 350.1.13.10 itKim 4.2.7.2.686 Bashir MONREAL [phone] [address] OFFICE BUILDING 2021-11-17 2021-11-17 Outpatient Star BROWN [facility] [id number] Univers 11:00:00 11:00:00 IRINA [facility] 2021-11-03 2021-11-03 Krish [facility]tonTOHATCHI [facility] 1.2.227.307 [id number] Univers 00:00:00 00:00:00 Missy SLATER 350.1.13.10 i ty of [place] 4.2.7.2.686 Bashir BAILEY [id number] Ar ruby EATON [address] BUILDING 2021-11-02 2021-11-02 Outpatient R JARETH [facility] [id number] Univers 16:00:00 16:40:05 MISSY alaniz [facility] 2021-11-02 2021-11-02 Office [facility] 1.2.840.114 [id number] Univers 16:00:00 16:40:05 Visit Missy HEALTH 350.1.13.10 it y of [place] 4.2.7.2.686 Chao as ONESIMO?BLEA [phone] Ar ruby SANZ [address] MEDICAL OFFICE BUILDING 2021-11-02 2021-11-02 Letter [facility] 1.2.840.114 [id number] Univers 00:00:00 00:00:00 (Out) Missy HEALTH 350.1.13.10 it y of [place] 4.2.7.2.686 Chao as ONESIMO?BLEA [phone] Ar ruby SANZ [address] MEDICAL OFFICE [facility] 2021-11-02 2021-11-02 Telephone [facility] 1.2.840.114 [id number] Univers 00:00:00 00:00:00 [facility] HEALTH 350.1.13.10 ity of [place] 4.2.7.2.686 Chao as ONESIMO?BLEA [phone] Ar ruby SANZ 092 [facility] OFFICE [facility] 2021-11-02 2021-11-02 Telephone [facility] 1.2.621.198 [id number] Univers 00:00:00 00:00:00 Missy HEALTH 350.1.13.10 it y of [place] 4.2.7.2.686 Chao as ONESIMO?BLEA [phone] Ar ruby SANZ [address] MEDICAL OFFICE [facility] 2021-10-28 2021-10-28 Outpatient [facility] [id number] [facility] 15:30:00 15:30:00 KEDAR ity [facility] 2021-10-27 2021-10-27 [facility] 1.2.515.446 [id number] Univers 09:11:35 23:59:00 Encounter [facility] HEALTH 350.1.13.10 ity of [place] 4.2.7.2.686 Chao as ONESIMO?BLEA [phone] Ar diclotus SANZ [address] MEDICAL OFFICE BUILDING 2021-10-27 2021-10-27 Outpatient R FABRIZIO PADILLA [facility] [id number] Univers 08:00:00 09:07:52 FABRIZIO PADILLA [facility] 2021-10-27 2021-10-27 Office [facility] 1.2.840.114 [id number] Univers 08:00:00 09:07:52 Visit [facility] 350.1.13.10 ity jessica [place] 4.2.7.2.686 Chao as ONESIMO?BLEA [phone] Ar diclotus SANZ 092 [facility] OFFICE [facility] 2021-10-27 2021-10-27 Outpatient R FABRIZIO PADILLA [facility] [id number] Univers 08:00:00 09:07:52 FABRIZIO PADILLA [facility] 2021-10-22 2021-10-22 Outpatient Star PATRICIO [facility] [id number] Univers 15:45:00 15:45:00 DANIEL [facility] 2021-10-15 2021-10-15 Outpatient R JIM [facility] [id number] Univers 15:45:00 16:10:59 OPAL [facility] 2021-10-15 2021-10-15 Office [facility] 1.2.048.671 [id number] Univers 15:45:00 16:10:59 Visit Opla BRYON 350.1.13.10 i ty of [place] 4.2.7.2.[place] [id number] Ar dic[address] 2021-10-15 2021-10-15 Letter [facility] 1.2.799.469 [id number] Univers 00:00:00 00:00:00 (Out) Opal BRYON 350.1.13.10 i ty [facility] 4.2.7.2.[place] [phone] Ar dical [address] 2021-10-09 2021-10-09 Outpatient R YARA MORRISON [facility] [id number] Univers 13:00:00 13:00:00 [facility] 2021-10-09 2021-10-09 Outpatient R YARA MORRISON [facility] [id number] Univers 13:00:00 13:00:00 ity of [facility] 2021-10-09 2021-10-09 Outpatient R YARA MORRISON [facility] [id number] Univers 13:00:00 13:00:00 ity of [facility] 2021-10-02 2021-10-02 Outpatient R [facility] ROBERT [id number] Univers 08:11:00 10:42:00 OPAL alaniz [facility] 2021-10-02 2021-10-02 [facility] 1.2.840.114 [id number] Univers 08:11:00 10:42:00 Encounter Opal BRYON 350.1.13.10 ity of [place] 4.2.7.2.686 [place] SURGICAL [id number] [facility] [address] 2021-10-02 2021-10-02 Surgery [facility] 1.2.428.450 [id number] Univers 09:24:00 10:37:00 Opal FERNANDEZKEY 350.1.13.10 i ty of [place] 4.2.7.2.686 [place] SURGICAL [id number] [facility] [address] 2021-10-01 2021-10-01 Laboratory Only, Adc Test [facility] 1.2.840. 114 [id number] Univers 09:00:00 09:15:00 Only Opal Fernandez 350.1.13.10 ity [facility] 4.2.7.2.686 [place] C[place]US [id number] [facility] [address] 2021-10-01 2021-10-01 Outpatient R FERNANDEZ, [facility] [id number] Univers 09:00:00 09:00:00 OPAL yajairadelores [facility] 2021-10-01 2021-10-01 Orders Doctor FRANKS 1.2.840.114 [id number] Univers 00:00:00 00:00:00 Only Unassigned, ROBERTA 350.1.13.10 ity of [place] [facility] 4.2.7.2.686 Chao as [phone] [address] 2021-10-01 2021-10-01 Telephone [facility] 1.2.840.114 [id number] Univers 00:00:00 00:00:00 Opal BRYON 350.1.13.10 i ty [facility] 4.2.7.2.[place] [phone] [facility] 2021-09-30 2021-09-30 Outpatient R VARUN [facility] [id number] Univers 16:00:00 16:00:00 SONYA ity of [facility] 2021-09-23 2021-09-23 Letter [facility] 1.2.095.718 [id number] Univers 00:00:00 00:00:00 (Out) Opal BRYON 350.1.13.10 i ty of [place] 4.2.7.2.686 [place] [phone] [address] 2021-09-23 2021-09-23 Telephone [facility]TOHATCHI [facility] 1.2.840.114 [id number] Univers 00:00:00 00:00:00 Wondiful A HEALTH 350.1.13.10 [facility] 4.2.7.2.686 Chao as ONESIMO?BLEA [id number] [facility] 044 [facility] 2021-08-28 2021-08-28 Telephone PaigeTOHATCHI [facility] 1.2.802.483 [id number] Univers 00:00:00 00:00:00 Lucy SLATER 350.1.13.10 ity [facility] 4.2.7.2.[place] [id number] [facility] [address] [facility] 2021-08-28 2021-08-28 Prep For [facility]igeTOHATCHI [facility] 1.2.840.114 [id number] Univers 00:00:00 00:00:00 Surgery Lucy SLATER 350.1.13.10 ity of [place] 4.2.7.2.[place] [phone] [facility] 204 [facility] 2021-08-18 2021-08-18 Outpatient R JIM [facility] [id number] Univers 15:00:00 15:30:21 OPAL ity of [facility] 2021-08-18 2021-08-18 Office [facility] 1.2.518.581 [id number] Univers 14:33:48 15:30:21 Visit Opal SLATER 350.1.13.10 i ty of [place] 4.2.7.2.686 [place] [phone] Ar dical NAL [address] BUILDING 2021-08-18 2021-08-18 Orders Doctor GOLDEN 1.2.840.114 [id number] Univers 00:00:00 00:00:00 Only Unassigned, ROBERTA 350.1.13.10 ity of [place] [facility] 4.2.7.2.686 Chao as [phone] [address] 2021-08-14 2021-08-14 Telephone [facility] 1.2.840.114 [id number] Univers 00:00:00 00:00:00 Wondiful A HEALTH 350.1.13.10 ity of [place] 4.2.7.2.686 Chao as ONESIMO?BLEA [phone] Ar dical KNEY [address] MEDICAL OFFICE BUILDING 2021-08-11 2021-08-11 [facility] Miguel Almaraz [facility] 1.2.840.114 [id number] Univers 14:53:01 23:59:00 Encounter Cam [place] 350.1.13.10 ity of [place] 4.2.7.2.[place] [id number] [facility] [address] 2021-08-11 2021-08-11 [facility] 1.2.781.560 [id number] Univers 14:50:08 14:52:00 Encounter Wondiful A [place] 350.1.13.10 ity of [place] 4.2.7.2.686 [place] [id number] [facility] [address] [place] [address] 2021-08-11 2021-08-11 Outpatient R RUFINA [facility] [id number] Univers 14:47:24 14:49:00 ity of [facility] 2021-08-11 2021-08-11 [facility] Miguel Almaraz [facility] 1.2.840.114 [id number] Univers 14:47:24 14:49:00 Encounter Shaun SLATER 350.1.13.10 ity of [place] 4.2.7.2.[place] [id number] [facility] [address] 2021-08-11 2021-08-11 Outpatient R MIGUEL ALMARAZ [facility] [id number] Univers 00:00:00 00:00:00 ity of [facility] 2021-07-28 2021-07-28 Outpatient R FABRIZIO PADILLA [facility] [id number] Univers 15:40:00 15:40:00 BETTINAFABRIZIO Lazo [facility] 2021-07-27 2021-07-27 Outpatient R MIGUEL ALMARAZ [facility] [id number] Univers 15:00:00 15:58:39 ity [facility] 2021-07-27 2021-07-27 Office Rufina [facility] 1.2.595.831 [id number] Univers 14:41:29 15:58:39 Visit Shaun SLATER 350.1.13.10 i ty of [place] 4.2.7.2.[place] [phone] Ar dic[address] 2021-07-27 2021-07-27 Outpatient R MIGUEL ALMARAZ [facility] [id number] Univers 15:00:00 15:00:00 ity [facility] 2021-07-27 2021-07-27 Orders Doctor GOLDEN 1.2.840.114 [id number] Univers 00:00:00 00:00:00 Only Unassigned, ROBERTA 350.1.13.10 ity of [place] [facility] 4.2.7.2.686 Chao as [phone] [facility] [address] 2021-07-08 2021-07-08 Occupational Health And Safety Adviser 2, Adc Lab [facility] 1.2.840.114 [id number] Univers 08:10:52 14:43:19 Visit Meseret Fraire 350.1.13. 10 ity of [place]2.7.2.[place] [phone] Ar dical nal 353 [facility] 2021-07-08 2021-07-08 Occupational Health And Safety Adviser 2, Adc Lab [facility] 1.2.840.114 [id number] Univers 08:10:52 08:25:52 Visit Yee, Meseret Dani Bryon 350.1.13. 10 ity of [place].2.7.2.[place] [phone] Ar dical [facility] 353 [facility] 2021-07-08 2021-07-08 [facility] [id number] Univers 08:15:00 08:15:00 WONDIFUL ity o f [facility] 2021-07-07 2021-07-07 Office Yee [facility] 1.2.840.114 [id number] Univers 16:17:47 17:08:06 Visit [facility]intrihealth Dani [facility] 350.1.13.10 ity of [place] 4.2.7.2.686 Chao as Onesimo?Blea [phone] [facility] 044 [facility] Office [facility] 2021-07-07 2021-07-07 Outpatient R YEE [facility] [id number] Univers 16:30:00 16:30:00 WONDIFUL ity o f [facility] 2021-07-01 2021-07-01 Office Miguel Almaraz [facility] 1.2.819.247 [id number] Univers 15:36:17 16:31:44 Visit Shaun Slater 350.1.13.10 i ty of [place] 4.2.7.2.[place] [phone] Ar dical [facility] [address] [facility] 2021-07-01 2021-07-01 Outpatient R MIGUEL ALMARAZ [facility] [id number] Univers 15:30:00 15:30:00 ity of [facility] 2021-07-01 2021-07-01 Orders Doctor FRANKS 1.2.840.114 [id number] Univers 00:00:00 00:00:00 Only Unassigned, ROBERTA 350.1.13.10 ity of [place] [facility] 4.2.7.2.686 Chao as [phone] [address] 2021-06-29 2021-06-29 Telephone Almaraz Miguel [facility] 1.2.840.114 [id number] Univers 00:00:00 00:00:00 Shaun Slater 350.1.13.10 i ty of [place].2.[place].2.[place] [phone] Ar dical nal 134 [facility] 2021-06-25 2021-06-25 Outpatient R MIGUEL ALMARAZ [facility] [id number] Univers 08:00:00 08:00:00 ity [facility] 2021-06-24 2021-06-24 Imm/Inj Nurse, Adc Pob Immunization [facility] 1.2.840.114 [id number] Univers 16:33:34 16:33:43 Visit Donato Cadena 350.1.13 .10 ity [facility] [place].2.7.2.[place] [phone] Ar dical joe 421 [facility] 2021-06-24 2021-06-24 Outpatient R SURINDER [facility] [id number] Univers 16:30:00 16:30:00 DONATO alaniz [facility] 2021-05-20 2021-05-20 Outpatient R MIGUEL ALMARAZ [facility] [id number] Univers 16:00:00 16:00:00 ity [facility] 2021-05-12 2021-05-12 Outpatient R YEE [facility] [id number] Univers 13:00:00 13:00:00 WONDIFUL ity o f [facility] 2021-05-12 2021-05-12 Occupational Health And Safety Adviser 2, Adc Lab [facility] [id number] Univers 08:22:12 08:37:12 Visit Meseret Fraire [id number] ity [facility] [id number] [phone] Ar dical nal 353 [facility] 2021-05-12 2021-05-12 Outpatient R YEE [facility] [id number] Univers 08:15:00 08:15:00 WONDIFUL ity o f [facility] 2021-05-122021-05-12 Outpatient R YEE, [facility] [id number] Univers 08:15:00 08:15:00 WONDIFUL ity o f [facility] 2021-05-11 2021-05-11 Outpatient R YEE, [facility] [id number] Univers 16:00:00 16:00:00 WONDIFUL ity o f [facility] 2021-03-23 2021-03-23 [facility] [id number] Univers 15:37:18 16:04:50 Visit Santos Slater [id number] [id number] [phone] Ar dical nal 9 [facility] 2021-03-23 2021-03-23 Outpatient R LINK, [facility] [id number] Univers 16:00:00 16:00:00 QIANGJUN ity o f [facility] 2021-03-11 2021-03-11 Outpatient R LINK, [facility] [id number] Univers 15:40:00 15:40:00 QIANGJUN ity o [facility] 2020-12-31 2020-12-31 [facility] [id number] Univers 00:00:00 00:00:00 Santos Slater [id number] [id number] [phone] Ar dical nal [address] [place] [address] 2020-12-30 2020-12-30 Outpatient R LINK, [facility] [id number] Univers 16:00:00 16:00:00 QIANGJUN ity o f [facility] 2020-12-25 2020-12-25 Outpatient R LINK, [facility] [id number] Univers 09:00:00 09:00:00 QIANGJUN ity o f [facility] 2020-12-18 2020-12-18 Outpatient R YEE, [facility] [id number] Univers 10:45:00 10:45:00 WONDIFUL ity o f [facility] 2020-12-18 2020-12-18 Outpatient R YEE, [facility] [id number] Univers 10:45:00 10:45:00 WONDIFUL ity o f [facility] 2020-12-09 2020-12-09 Nurse Visit, Aroldo Nurse [facility] [id number] Univers 12:02:27 12:04:36 Visit Ayla Hall [id number] [id number] [phone] Ar dicoh joe 059 [facility] 2020-12-09 2020-12-09 Outpatient R RAFAEL [facility] [id number] Univers 12:00:00 12:00:00 SENDSEEMA alaniz [facility] 2020-12-08 2020-12-08 Telephone [facility] 1.2.208.885 [id number] Univers 00:00:00 00:00:00 Santos Slater 350.1.13.10 [place] [phone] Ar dical joe 059 [facility] 2020-12-05 2020-12-05 Office Link [facility] 1.2.840.114 [id number] Univers 10:05:08 10:45:56 Visit Santos Slater 350.1.13.10 [place] [phone] Ar dicoh joe 9 [facility] 2020-12-05 2020-12-05 Outpatient R LINK [facility] [id number] Univers 10:00:00 10:00:00 QIAKATLYNJUN ity o f [facility] 2020-12-01 2020-12-01 Telephone Yee [facility] 1.2.840.114 [id number] Univers 00:00:00 00:00:00 Wondiful A Health 350.1.13.10 ity of [place] 4.2.7.2.686 [place] Professio [phone] Ar ruby [address] Office [facility] 2020-11-28 2020-11-28 Telephone Yee [facility] 1.2.840.114 [id number] Univers 00:00:00 00:00:00 Wondiful A Health 350.1.13.10 ity of [place] 4.2.7.2.686 [place] Professio [phone] [facility] 044 [facility] 2020-11-27 2020-11-27 Occupational Health And Safety Adviser Cristóbal, Adc Lab Main [facility] 1.2.8 40.114 [id number] Univers 12:14:23 12:29:23 Visit JessicdMissy 350.1.13.10 [place] [phone] [facility] 353 [facility] 2020-11-27 2020-11-27 Office Jareth [facility] 1.2.840.114 [id number] Univers 11:35:55 12:05:05 Visit Missy Health 350.1.13.10 it y of [place] 4.2.7.2.686 [place] Professio [phone] [facility] 044 [facility] 2020-11-27 2020-11-27 Outpatient [facility] [id number] Univers 11:30:00 11:30:00 MISSY ity of [facility] 2020-11-27 2020-11-27 Telephone [facility] 1.2.654.662 [id number] Univers 00:00:00 00:00:00 Missy Health 350.1.13.10 it y of [place] 4.2.7.2.686 [place] Professio [phone] [facility] 044 [facility] 2020-11-20 2020-11-20 Office Miguel Almaraz [facility] 1.2.840.114 [id number] Univers 15:40:03 17:27:48 Visit Justyna Garrido 350.1.13.10 [place] [phone] [facility] 134 [facility] 2020-11-20 2020-11-20 Outpatient R [facility] [id number] Univers 15:30:00 15:30:00 JUSTYNA ity [facility] 2020-10-23 2020-10-23 Laboratory Lab, [facility] 1.2. 840.114 [id number] Univers 11:28:40 11:48:40 Only Sonya Bond [facility] 350.1.13.10 ity of [place] 4.2.7.2.686 [place] Professio [phone] Ar dical nal [address] [place] Office [facility] 2020-10-23 2020-10-23 Outpatient R [facility] [id number] Univers 11:00:00 11:00:00 ity [facility] 2020-10-22 2020-10-22 Outpatient R [facility] [id number] Univers 18:20:00 18:20:00 ity [facility] 2020-10-16 2020-10-16 Telephone Lab, [facility] 1..840.114 [id number] Univers 00:00:00 00:00:00 [facility] Pob I Health 350.1.13.10 ity of [place] 4.2.7.2.686 [place] Professio [phone] Ar dical [address] One 2020-10-15 2020-10-15 Laboratory Lab, [facility] I [facility] 1.2. 840.114 [id number] Univers 08:52:58 09:12:58 Only Missy [facility] 350.1.13.10 ity of [place] 4.2.7.2.686 [place] Professio [phone] Ar dical nal [address] [place] [address] Office [facility] 2020-10-15 2020-10-15 Outpatient R [facility] [id number] Univers 09:00:00 09:00:00 ity [facility] 2020-10-15 2020-10-15 Telephone GOLDEN Fraire 1..840.114 [id number] Univers 00:00:00 00:00:00 Meseret Louise ROBERTA 350.1.13.10 ity of [facility] 4.2.7.2.686 Chao as [phone] [address] 2020-10-09 2020-10-09 Outpatient R [facility] [id number] Univers 16:00:00 16:00:00 ity [facility] 2020-10-09 2020-10-09 Nurse Radha Johnston 1.2.840.114 [id number] Univers 00:00:00 00:00:00 Triage ROBERTA 350.1.13.10 it y of [facility] 4.2.7.2.686 Chao as [phone] [facility] [address] 2020-10-08 2020-10-08 Emergency Dorado, [facility] 1.2.090.128 [id number] Univers 12:24:00 16:17:00 Hayden Bryon 350.1.13.10 i ty of [place] 4.2.7.2.686 [place] [facility] [phone] [facility] [address] [place] 2020-10-08 2020-10-08 Nurse Nurse, [facility] 1.2 .840.114 [id number] Univers 11:55:26 13:15:09 Visit Sloan Ivy Chris [facility] 350.1.13.10 ity of [place] 4.2.7.2.686 [place] Professio [phone] [address] Office Building One 2020-10-08 2020-10-08 Outpatient R LUZ [facility] [id number] Univers 07:10:00 07:10:00 SLOAN ity [facility] 2020-09-17 2020-09-17 Outpatient R LUZ [facility] [id number] Univers 14:10:00 14:10:00 SLOAN ity [facility] 2020-08-28 2020-08-28 Office [facility] 1.2.840.114 [id number] Univers 10:30:40 11:17:49 Visit Missy [facility] 350.1.13.10 it y of [place] 4.2.7.2.686 [place] Professio [phone] [address] Office Building One 2020-08-28 2020-08-28 Outpatient R [facility] [id number] Univers 10:30:00 10:30:00 MISSY ity [facility] 2020-08-28 2020-08-28 Telephone [facility] 1.2.234.669 [id number] Univers 00:00:00 00:00:00 Missy [facility] 350.1.13.10 it y of [place] 4.2.7.2.686 [place] Professio [phone] Ar dical nal [address] [place] Office [facility] 2020-08-01 2020-08-01 Office [facility] 1.2.840.114 [id number] Univers 13:48:17 14:43:02 Visit Gabriela Slater 350.1.13.10 [place] [phone] Ar dical nal 134 [facility] 2020-08-01 2020-08-01 Outpatient [facility] [id number] Univers 14:00:00 14:00:00 GABRIELA ity of [facility] 2020-08-01 2020-08-01 [facility] 1.2.178.930 [id number] Univers 05:40:00 06:48:00 Seymour Slater 350.1.13.10 i ty [place] 4[place]2.7.2.686 [place] [phone] [facility] [address] [place] 2020-08-01 2020-08-01 Letter [facility] 1.2.840.114 [id number] Univers 00:00:00 00:00:00 (Out) Gabriela Slater 350.1.13.10 [place].2.[place] [phone] Ar dical nal 134 [facility] 2020-07-31 2020-07-31 Case Miguel Almaraz [facility] 1.2.587.318 [id number] Univers 00:00:00 00:00:00 Management Shaun Slater 350.1.13.10 [place].2.[place] [phone] Ar dical nal 134 [facility] 2020-07-03 2020-07-03 Office Miguel Almaraz [facility] 1.2.209.154 [id number] Univers 16:04:02 16:48:25 Visit Cam [place] 350.1.13.10 i [place] 4[place]2.7.2.[place] [phone] Ar dical [address] 2020-07-03 2020-07-03 Outpatient R MIGUEL ALMARAZ [facility] [id number] Univers 16:00:00 16:00:00 ity of [facility] 2020-07-03 2020-07-03 Orders Doctor GOLDEN 1.2.840.114 [id number] Univers 00:00:00 00:00:00 Only Unassigned, ROBERTA 350.1.13.10 ity of [place] [facility] 4.2.7.2.686 Chao as [phone] [facility] [address] [place] 2020-06-24 2020-06-24 Telephone Rufina [facility] 1.2.840.114 [id number] Univers 00:00:00 00:00:00 Cam [place] 350.1.13.10 [place].2.[place] [phone] Ar dical [address] 2020-06-23 2020-06-23 Telephone [facility] 1.2.840.114 [id number] Univers 00:00:00 00:00:00 Cam [place] 350.1.13.10 i ty [place] 4[place]2.7.2.[place] [phone] [address] 2020-06-20 2020-06-20 Outpatient R AMIRA [facility] [id number] Univers 13:00:00 13:00:00 GABRIELA ity of [facility] 2020-06-19 2020-06-19 Outpatient R MIGUEL ALMARAZ [facility] [id number] Univers 13:32:10 23:59:00 ity of [facility] 2020-06-19 2020-06-19 [facility] Rufina [facility] 1.2.840.114 [id number] Univers 13:32:10 23:59:00 Encounter Cam [place] 350.1.13.10 ity of [place] 4.2.7.2.686 [place] [phone] [facility] [address] [place] 2020-06-19 2020-06-19 Office Miguel Almaraz [facility] 1.2.936.862 [id number] Univers 15:35:12 16:45:55 Visit Shaun [place] 350.1.13.10 [place].2.7.2.[place] [phone] Ar dical nal 134 [facility] 2020-06-19 2020-06-19 Outpatient R AMIRA [facility] [id number] Univers 16:15:00 16:15:00 GABRIELA ity of [facility] 2020-06-19 2020-06-19 Outpatient R MIGUEL ALMARAZ [facility] [id number] Univers 15:45:00 15:45:00 ity [facility] 2020-06-19 2020-06-19 [facility] Miguel Almaraz [facility] 1.2.840.114 [id number] Univers 13:30:38 13:31:00 Encounter Cam [place] 350.1.13.10 ity of [place] 4.2.7.2.686 [place] [phone] [address] 2020-06-18 2020-06-18 Telephone Miguel Almaraz [facility] 1.2.840.114 [id number] Univers 00:00:00 00:00:00 Cam [place] 350.1.13.10 [place]2.7.2.[place] [phone] Ar dical nal 134 [facility] 2020-06-10 2020-06-10 Telephone Miguel Almaraz [facility] 1.2.840.114 [id number] Univers 00:00:00 00:00:00 Cam [place] 350.1.13.10 i [place] 4.2.7.2.[place] [phone] Ar dical nal 134 [facility] 2020-05-29 2020-05-29 Occupational Health And Safety Adviser 2, [facility] 1.2.840.114 [id number] Univers 10:08:36 10:23:36 Visit Meseret Fraire [place] 350.1.13. 10 it[place] of [place].2.7.2.[place] [phone] Ar dical nal 353 [facility] 2020-05-29 2020-05-29 Outpatient R YEE, [facility] [id number] Univers 10:15:00 10:15:00 WONDIFUL ity o f [facility] 2020-05-28 2020-05-28 Telephone Miguel Almaraz [facility] 1.2.840.114 [id number] Univers 00:00:00 00:00:00 Cam [place] 350.1.13.10 i ty [place] 4.2.7.2.[place] [phone] Ar dical nal 134 [facility] 2020-05-27 2020-05-27 Telephone Miguel Almaraz [facility] 1.2.840.114 [id number] Univers 00:00:00 00:00:00 Shaun [place] 350.1.13.10 i [place] 4.2.7.2.[place] [phone] Ar dical nal 134 [facility] 2020-05-20 2020-05-20 Occupational Health And Safety Adviser 2, Adc Lab [facility] 1.2.840.114 [id number] Univers 14:55:37 15:10:37 Visit Gabriela Collier 350.1.13.10 ity of [place]az 4.2.7.2.686 [place] Professio [phone] Ar dical nal 353 [facility] 2020-05-20 2020-05-20 Office Yee [facility] 1.2.840.114 [id number] Univers 14:10:16 14:51:51 Visit Wondict Slater 350.1.13.10 ity of [place].2.7.2.[place] [phone] Ar dical nal 044 [facility] 2020-05-20 2020-05-20 Outpatient R YEE [facility] [id number] Univers 14:30:00 14:30:00 WONDIFUL ity o f [facility] 2020-05-20 2020-05-20 Office Miguel Almaraz [facility] 1.2.840.114 [id number] Univers 12:46:35 13:59:04 Visit Gabriela Collier 350.1.13.10 [place] of [place] 4[place]2.7.2.[place] [phone] Ar dical nal 134 [facility] 2020-05-20 2020-05-20 Orders Doctor GOLDEN 1.2.840.114 [id number] Univers 00:00:00 00:00:00 Only Unassigned, ROBERTA 350.1.13.10 ity of [place] [facility] 4.2.7.2.686 Chao as [phone] [address] 2020-05-16 2020-05-16 Telephone Miguel Almaraz [facility] 1.2.840.114 [id number] Univers 00:00:00 00:00:00 Shaun Slater 350.1.13.10 i ty [place]2.7.2.[place] [phone] Ar dical nal [address] [place] [address] 2020-05-08 2020-05-08 Telephone Hema [facility] 1.2.840.114 [id number] Univers 00:00:00 00:00:00 Justyna Slater 350.1.13.10 i [place] 4[place]2.7.2.[place] [phone] Ar dical nal [address] [place] [address] 2020-05-07 2020-05-07 Telephone Amira [facility] 1.2.292.284 [id number] Univers 00:00:00 00:00:00 Gabriela Slater 350.1.13.10 ity of [place] 4.2.7.2.[place] [phone] Ar dical nal [address] [place] [address] 2020-03-28 2020-03-28 Telephone Miguel Almaraz [facility] 1.2.840.114 [id number] Univers 00:00:00 00:00:00 Shaun Slater 350.1.13.10 i ty [place] 4.2.7.2.[place] [phone] [address] 2020-03-27 2020-03-27 Outpatient R MIGUEL ALMARAZ [facility] [id number] Univers 14:15:00 14:15:00 ity of [facility] 2020-03-27 2020-03-27 Occupational Health And Safety Adviser 2, Adc Lab [facility] 1.2.840.114 [id number] Univers 11:39:38 11:54:38 Visit Miguel Almarazton 350.1.13.10 ity of [place] 4.2.7.2.[place] [phone] Ar dical [facility] 353 [facility] 2020-03-27 2020-03-27 Laboratory Lab, [facility] Pob I [facility] 1.2. 840.114 [id number] Univers 11:26:41 11:46:41 Only VarunSonya 350.1.13.10 ity of [place] 4.2.7.2.686 [place]ao [place] Professio [phone] Ar dical nal 044 [facility] One 2020-03-27 2020-03-27 Case Yvonne Almarazen [facility] 1.2.570.558 [id number] Univers 00:00:00 00:00:00 Management Cam [place] 350.1.13.10 ity of [place] 4.2.7.2.[place] [phone] [facility] 134 [facility] 2020-03-27 2020-03-27 Telephone Varun [facility] 1.2.384.939 [id number] Univers 00:00:00 00:00:00 Sonya Dani [place] 350.1.13.10 ity of [place] 4.2.7.2.686 [place] [phone] [address] 2019-12-25 2019-12-25 Outpatient R RUFINA MIGUEL [facility] [id number] Univers 11:00:00 11:00:00 ity of [facility] 2019-12-25 2019-12-25 Occupational Health And Safety Adviser 2, Adc Lab [facility] 1.2.840.114 [id number] Univers 10:40:23 10:55:23 Visit Miguel Almarazton 350.1.13.10 ity of [place] 4.2.7.2.[place] [phone] Ar dical [address] 2019-12-24 2019-12-24 Case Yvonne Almarazen [facility] 1.2.657.304 [id number] Univers 00:00:00 00:00:00 Management Cam [place] 350.1.13.10 ity of [place] 4.2.7.2.[place] [phone] Ar dical nal [address] 2019-12-17 2019-12-17 [facility] [id number] Univers 16:20:00 16:20:00 KEDAR ity of [facility] 2019-06-12 2019-06-12 [facility] 1.2.056.883 [id number] Univers 00:00:00 00:00:00 Missy Health 350.1.13.10 it y of [place] 4.2.7.2.686 [place]ao [place] Professio [phone] Ar dical nal [address] [place] Office Building One 2019-06-08 2019-06-08 [facility] 1.2.840.11 [id number] Univers 10:20:07 23:59:00 Encounter Station, [facility] Heart [place] 350.1.13 .10 ity of [place] 4.2.7.2.[place] [phone] [facility] [address] [place] 2019-06-08 2019-06-08 [facility] 1.2.840.114 [id number] Univers 10:17:35 10:19:00 Encounter Missy [place] 350.1.13.10 ity of [place] 4.2.7.2.686 [place] [phone] [facility] [address] [place] 2019-06-08 2019-06-08 Office [facility] 1.2.840.114 [id number] Univers 08:12:18 09:20:05 Visit Missy Health 350.1.13.10 it y of [place] 4.2.7.2.686 [place]ao [place] Professio [phone] Ar dical nal [address] [place] Office Building One 2019-06-08 2019-06-08 Letter [facility] 1.2.840.114 [id number] Univers 00:00:00 00:00:00 (Out) Missy Health 350.1.13.10 it y of [place] 4.2.7.2.686 [place]ao as Professio [phone] Ar dical nal [address] [place] Office Building One 2019-06-08 2019-06-08 Telephone Jareth [facility] 1.2.090.346 [id number] Univers 00:00:00 00:00:00 Missy Neves 350.1.13.10 it y of [place] 4.2.7.2.686 [place]ao as Professio [phone] [facility] 044 [facility] One 2019-06-06 2019-06-06 Occupational Health And Safety Adviser 2, Adc Lab [facility] 1.2.840.114 [id number] Univers 08:12:25 08:27:25 Visit Missy [place] 350.1.13.10 ity of [place].2.[place] [phone] [facility] 353 [facility] 2019-06-06 2019-06-06 Orders Doctor GOLDEN 1.2.840.114 [id number] Univers 00:00:00 00:00:00 Only Unassigned, ROBERTA 350.1.13.10 ity of [place] [facility] 4.2.7.2.686 Chao as [phone] [address] 2019-06-05 2019-06-05 Office Jareth [facility] 1.2.840.114 [id number] Univers 15:36:55 17:02:45 Visit Missy Neves 350.1.13.10 it y of [place] 4.2.7.2.686 [place]ao [place] Professio [phone] [address] Office [facility] 2019-06-05 2019-06-05 Orders Doctor GOLDEN 1.2.840.114 [id number] Univers 00:00:00 00:00:00 Only Unassigned, ROBERTA 350.1.13.10 ity of [place] [facility] 4.2.7.2.686 Chao as [phone] [address] Results Test Description Test Time Test Comments Results Result Comments Source POCT MOLECULAR FLU 2022-09-15 14:01:33 Test Item Value Reference Range Interpretation Comme nts POCT Molecular FluA (test code = 21660-3) Negative Negative POCT Molecular FluB (test code = 31595-7) Negative Negative Lab Interpretation (test code = 50137-3) [facility] MOLECULAR [id number] 14:01:33 Test Item Value Reference Range Interpretation Comments POCT Molecular FluA (test code = Negative Negative 01121-2) POCT Molecular FluB (test code = Negative Negative 51856-1) Lab Interpretation (test code = Normal 46150-7) [facility] MOLECULAR [id number] 14:01:33 Test Item Value Reference Range Interpretation Comments POCT Molecular FluA (test code = Negative Negative 36138-9) POCT Molecular FluB (test code = Negative Negative 16542-9) Lab Interpretation (test code = Normal 26716-1) [facility] MOLECULAR [id number] 13:56:10 Test Item Value Reference Range Interpretation Comments POCT Molecular Strep (test code = Negative Negative 11964-2) Lab Interpretation (test code = Normal 00369-2) [facility] MOLECULAR [id number] 13:56:10 Test Item Value Reference Range Interpretation Comments POCT Molecular Strep (test code = Negative Negative 66167-3) Lab Interpretation (test code = Normal 34953-9) [facility] MOLECULAR [id number] 13:56:10 Test Item Value Reference Range Interpretation Comments POCT Molecular Strep (test code = Negative Negative 20243-6) Lab Interpretation (test code = Normal 73545-6) [facility] [id number] 19:35:19 Test Item Value Reference Range Interpretation Comments IGF 1 (Insulin-Like 153 ng/mL 55-235 Growth Factor 1) (test code = 2484-4) IGF 1 Z SCORE INTERPRETIVE CALCULATION (test code INFOR MATION: IGF 1 = 04186-4) Z-SCORE CALCULA TION A Z score is the number of standard dev iations a given result is above (positive score) or below (negat di score) the age- and sex-adjusted population mean . ?Results that a re within the IGF- 1 reference inter edita will have a Z s core between -2.0 an d +2.0.Performed By: NADIR Chandi es[address] [place] [address] [id number] Director: Pola Nazario MD, PhD [facility] Center[facility] STIMULATING [id number] 23:24:01 Test Item Value Reference Range Interpretation Comments TSH (test code = See_Comment [Automated message] [id number]) The system [employer] ([place] generated this result transmitted ref erence range: 0.45 - 4 .70 mIU/L. The refe rence range was not u sed to interpret this result as normal/abnor mal. Lab Interpretation (test Normal code = 94339-0) [facility] CenterGLYCOSYLATED HEMOGLOBIN (A1C)2022-07-29 22:48:14 Test Item Value Reference Range Interpretation Comments HGB A1C (test code = 5.7 % 4.0-5.7 4548-4) TERRY (test code = TERRY) Reference RangesNormal: <5.7%Prediabetes: 5.7 - 6.4%Diabetes: > 6.5% Lab Interpretation (test Normal code = 65413-2) [facility] CenterCORTISOL [id number] 22:29:15 Test Item Value Reference Range Interpretation Comments DESMOND AM (test code = 1.1 ug/dL 4.5-23.0 L [id number]) TERRY (test code = TERRY) Biotin has been reported to cause a positive bias, interpret results relative to patient's use of biotin. Lab Interpretation (test Abnormal code = 06771-1) [facility] CenterCOMP. METABOLIC PANEL (48393)2022-07-29 21:31:19 Test Item Value Reference Range Interpretation Comments NA (test code = 141 mmol/L 135-145 4385323242) K (test code = 5.2 mmol/L 3.5-5.0 H 1204833625) CL (test code = 106 mmol/L 98-108 7993875715) CO2 TOTAL (test code = 27 mmol/L 23-31 2267918554) AGAP (test code = 2-16 2579359719) BUN (test code = 12 mg/dL 7-23 7837016058) GLUCOSE (test code = 121 mg/dL 70-110 H 5636204430) CREATININE (test code = 0.57 mg/dL 0.50-1.04 2958195540) TOTAL BILI (test code = 0.5 mg/dL 0.1-1.4 0788882691) CALCIUM (test code = 9.2 mg/dL 8.6-10.6 7029309142) T PROTEIN (test code = 7.8 g/dL 6.3-8.2 3895619536) ALBUMIN (test code = 4.7 g/dL 3.5-5.0 9896068160) ALK PHOS (test code = 84 U/L 34-122 5186559914) ALTv (test code = 28 U/L 5-35 1742-6) AST(SGOT) (test code = 23 U/L 13-40 6852315661) eGFR (test code = mL/min/1.73m2 6326026473) TERRY (test code = TERRY) Association of Glomerular Filtration Rate (GFR) and Staging of Kidney Disease* + --+ --+ ------+| GFR (mL/min/1.73 m2) ?| With Kidney Damage ?| ?Without Kidney Damage+ --------+ --------+ +| ?>90 ?| ?Stage one ?| ? Normal ?+ ---+ ---+ -------+| ?60-89 ?| ?Stage two ?| ? Decreased GFR ? + --+ --+ ------+| ?30-59 ?| ?Stage three ?| ? Stage three ? + --+ --+ ------+| ?15-29 ?| ?Stage four ? | ? Stage four ?+ ---+ ---+ -------+| ?<15 (or dialysis) ? ?| ?Stage five ? | ? Stage five ?+ ---+ ---+ -------+ *Each stage assumes the associated GFR level has been in effect for at least three months. ?Stages 1 to 5, with or without kidney disease, indicate chronic kidney disease. Notes: Determination of stages one and two (with eGFR >59mL/min/1.73 m2) requires estimation of kidney damage for at least three months as defined by structural or functional abnormalities of the kidney, manifested by either:Pathological abnormalities or Markers of kidney damage (including abnormalities in the composition of the blood or urine or abnormalities in imaging tests). Lab Interpretation Abnormal (test code = 00510-0) [facility] Branch[facility] (78914)(TOTAL CHOLESTEROL, TRIGLYCERIDES, HDL)2022-07-29 21:31:19 Test Item Value Reference Range Interpretation Comments CHOL (test code = 209 mg/dL 120-200 H [id number]) HDL (test code = 66 mg/dL See_Comment [Automated message] [id number]) The system [place] generated this result transmit radha reference range : >=50. The refer ence range was not u sed to interpret th is result as normal/abnormal . HDLC RATIO (test code = See_Comment [Au tomated message] [id number]) The system [place] generated this result transmit radha reference range : <=4.5. The refe rence range was not u sed to interpret th is result as normal/abnormal . TRIG (test code = 74 mg/dL 30-170 6736701228) LDL CHOL (test code = 128 mg/dL See_Comment [Auto mated message] 46701-4) The system [place] generated this result transmit radha reference range : <=160. The refe rence range was not u sed to interpret th is result as normal/abnormal . VLDL (test code = 15 mg/dL 5-60 6798382146) Lab Interpretation (test Abnormal code = 14256-7) [facility] WITH [id number] 20:40:09 Test Item Value Reference Range Interpretation Comments WBC (test code = See_Comment [Automated 6690-2) message] The sy stem which generated this result transmitted reference range : 4.30 - 11.10 10*3/?L. The reference range was not used to interpret this result as normal/abnormal . RBC (test code = See_Comment [Automated 789-8) message] The sy stem which generated this result transmitted reference range : 3.93 - 5.25 10*6/?L. The reference range was not used to interpret this result as normal/abnormal . HGB (test code = 13.7 g/dL 11.6-15.0 718-7) HCT (test code = 41.9 % 35.7-45.2 4544-3) MCV (test code = 93.9 fL 80.6-95.5 787-2) MCH (test code = 30.7 pg 25.9-32.8 785-6) MCHC (test code = 32.7 g/dL 31.6-35.1 786-4) RDW-SD (test code = 44.6 fL 39.0-49.9 78152-7) RDW-CV (test code = 13.0 % 12.0-15.5 788-0) PLT (test code = See_Comment [Automated 777-3) message] The sy stem which generated this result transmitted reference range : 166 - 358 10*3/ ?L. The reference r kody was not used to interpret this result as normal/abnormal . MPV (test code = 12.2 fL 9.5-12.9 53784-0) NRBC/100 WBC (test See_Comment [Automat ed code = 3081436047) message] The system which generated this result transmitted reference range : 0.0 - 10.0 /100 WBCs. The refer ence range was not u sed to interpret th is result as normal/abnormal . NRBC x10^3 (test code See_Comment [Auto mated = 1219250296) message] The s ystem which generated this result transmitted reference range : 10*3/?L. The reference range was not used to interpret this result as normal/abnormal . GRAN MAT (NEUT) % 78.8 % (test code = 770-8) IMM GRAN % (test code 0.20 % = 9750868823) LYMPH % (test code = 18.2 % 736-9) MONO % (test code = 2.1 % 5905-5) EOS % (test code = 0.1 % 713-8) BASO % (test code = 0.6 % 706-2) GRAN MAT x10^3(ANC) 6.39 10*3/uL 1.88-7.09 (test code = 3264490556) IMM GRAN x10^3 (test 0.00-0.06 code = 4005288055) LYMPH x10^3 (test code 1.48 10*3/uL 1.32-3.29 = 731-0) MONO x10^3 (test code 0.17 10*3/uL 0.33-0.92 L = 742-7) EOS x10^3 (test code = 0.03-0.39 L 711-2) BASO x10^3 (test code 0.05 10*3/uL 0.01-0.07 = 704-7) Lab Interpretation Abnormal (test code = 17889-4) [facility] URINALYSIS W/O SPECIFIC [id number] 18:28:00 Test Item Value Reference Range Interpretation Comments POCT PH U (test code = 3254) 5 mg/dl 5-8 POCT U LEUK EST (test code = Negative Negative - Negative 3263) POCT U NIT (test code = 3262) Negative Negative - Negative POCT U PROT (test code = 3259) Negative Negative - Negative POCT U GLU (test code = 3256) Normal Negative - Negative POCT U KETONE (test code = 3258) Negative Negative - Negative POCT U BLD (test code = 3257) Negative Negative - Negative [facility] URINALYSIS W/O SPECIFIC [id number] 18:28:00 Test Item Value Reference Range Interpretation Comments POCT PH U (test code = 3254) 5 mg/dl 5-8 POCT U LEUK EST (test code = Negative Negative - Negative 3263) POCT U NIT (test code = 3262) Negative Negative - Negative POCT U PROT (test code = 3259) Negative Negative - Negative POCT U GLU (test code = 3256) Normal Negative - Negative POCT U KETONE (test code = 3258) Negative Negative - Negative POCT U BLD (test code = 3257) Negative Negative - Negative [facility] WITH [id number] 19:39:13 Test Item Value Reference Range Interpretation Comments WBC (test code = See_Comment [Automated message] 6690-2) The system [employer] [place] generated this result transmitted ref erence range: 4.30 - 1 1.10 10*3/?L. The re ference range was not u sed to interpret this result as normal/abnor mal. RBC (test code = See_Comment [Automated message] 789-8) The system [employer] [place] generated this result transmitted ref erence range: 3.93 - 5 .25 10*6/?L. The re ference range was not u sed to interpret this result as normal/abnor mal. HGB (test code = 13.3 g/dL 11.6-15 718-7) HCT (test code = 41.3 % 35.7-45.2 4544-3) MCV (test code = 94.5 fL 80.6-95.5 787-2) MCH (test code = 30.4 pg 25.9-32.8 785-6) MCHC (test code = 32.2 g/dL 31.6-35.1 786-4) RDW-SD (test code 43.9 fL 39-49.9 = 26719-7) RDW-CV (test code 12.7 % 12-15.5 = 788-0) PLT (test code = See_Comment [Automated message] 777-3) The system whic h generated this result transmitted ref erence range: 166 - 35 8 10*3/?L. The re ference range was not u sed to interpret this result as normal/abnor mal. MPV (test code = 11.5 fL 9.5-12.9 63546-2) NRBC/100 WBC (test See_Comment [Automat ed message] code = 7807861466) The syste m which generated this result transmitted ref erence range: 0.0 - 10 .0 /100 WBCs. The refer ence range was not u sed to interpret this result as normal/abnor mal. NRBC x10^3 (test See_Comment [Automated message] code = 2035099419) The syste m which generated this result transmitted ref erence range: 10*3/?L. The reference range was not used to interpr et this result as normal/abnormal . GRAN MAT (NEUT) % 51.4 % (test code = 770-8) IMM GRAN % (test 0.10 % code = 2229955158) LYMPH % (test code 39.5 % = 736-9) MONO % (test code 6.3 % = 5905-5) EOS % (test code = 1.7 % 713-8) BASO % (test code 1.0 % = 706-2) GRAN MAT 3.57 10*3/uL 1.88-7.09 x10^3(ANC) (test code = 2049993923) IMM GRAN x10^3 0-0.06 (test code = 3904862315) LYMPH x10^3 (test 2.75 10*3/uL 1.32-3.29 code = 731-0) MONO x10^3 (test 0.44 10*3/uL 0.33-0.92 code = 742-7) EOS x10^3 (test 0.12 10*3/uL 0.03-0.39 code = 711-2) BASO x10^3 (test 0.07 10*3/uL 0.01-0.07 code = 704-7) [facility]. METABOLIC PANEL ([id number])2022-05-20 18:44:05 Test Item Value Reference Range Interpretation Comments NA (test code = 141 mmol/L 135-145 1062911802) K (test code = 5.0 mmol/L 3.5-5 2731879861) CL (test code = 105 mmol/L 98-108 3242629130) CO2 TOTAL (test code 30 mmol/L 23-31 = 0390927267) AGAP (test code = 2-16 2315659950) BUN (test code = 13 mg/dL 7-23 5970410108) GLUCOSE (test code = 103 mg/dL 70-110 8492667631) CREATININE (test code 0.63 mg/dL 0.5-1.04 = 8285479799) TOTAL BILI (test code 0.6 mg/dL 0.1-1.1 = 7094418281) CALCIUM (test code = 9.2 mg/dL 8.6-10.6 5410629087) T PROTEIN (test code 7.5 g/dL 6.3-8.2 = 2246728407) ALBUMIN (test code = 4.8 g/dL 3.5-5 0542004546) ALK PHOS (test code = 86 U/L 34-122 5196862688) ALTv (test code = 23 U/L 5-35 1742-6) AST(SGOT) (test code 21 U/L 13-40 = 9736953601) eGFR (test code = mL/min/1.73m2 0917281780) TERRY (test code = TERRY) Association of Glomerular Filtration Rate (GFR) and Staging of Kidney Disease* + + +- +| GFR (mL/min/1.73 m2) ?| With Kidney Damage ?| ?Without Kidney Damage+ ------+ ----+ ------+| ?>90 ?| ?Stage one ?| ? Normal ?+ -+ + -+| ?60-89 ?| ?Stage two ?| ? Decreased GFR ? + + +- +| ?30-59 ?| ?Stage three ?| ? Stage three ? + + +- +| ?15-29 ?| ?Stage four ? | ? Stage four ?+ -+ + -+| ?<15 (or dialysis) ? ?| ?Stage five ? | ? Stage five ?+ -+ + -+ *Each stage assumes the associated GFR level has been in effect for at least three months. ?Stages 1 to 5, with or without kidney disease, indicate chronic kidney disease. Notes: Determination of stages one and two (with eGFR >59mL/min/1.73 m2) requires estimation of kidney damage for at least three months as defined by structural or functional abnormalities of the kidney, manifested by either:Pathological abnormalities or Markers of kidney damage (including abnormalities in the composition of the blood or urine or abnormalities in imaging tests). [facility]
--- NOTE | 2022-09-16 12:08 | RAD REPORT ---
EXAM DESCRIPTION: RAD - Chest Single View - 09/16/2022 12:03 pm CLINICAL HISTORY: Cough COMPARISON: Chest Single View dated 05/14/2022; Chest Single View dated 08/04/2019; CHEST PA AND LAT 2 VIEW dated 04/10/2010 FINDINGS: Lines: None. Lungs: No evidence of edema or pneumonia. Pleural: No significant pleural effusions or pneumothorax. Cardiac: The heart size is within normal limits. Mediastinum: Within normal limits. Bones: No acute fractures. Other: None IMPRESSION: No acute cardiopulmonary disease.
[2022-09-16 12:48] LABS: Urine Blood Negative (Negative); Urine Glucose Negative (Negative); Urine Protein 1+ (Negative); Urine Specific Gravity >=1.030 (1.005-1.030); Urine pH 5.5 (5.0-7.0)
--- NOTE | 2022-09-16 13:03 | EDPHYS ---
Physician Documentation [facility] Name: Tessa Vogel Age: 52 yrs Sex: Female : 1970 Arrival Date: 09/16/2022 Time: 11:11 Bed 18 Private MD: ED Physician Zeb Hillman HPI: 09/16 12:21 This 52 yrs old Female presents to ER via Ambulatory with complaints of kb Covid+, Decreased Appetite, Weakness, Diarrhea. 12:21 The patient or guardian reports cough, that is intermittent, described as moderate, flu kb symptoms, low-grade fever, myalgias. Onset: The symptoms/episode began/occurred yesterday. Severity of symptoms: At their worst the symptoms were moderate, in the emergency department the symptoms are unchanged. Modifying factors: The symptoms are alleviated by nothing, the symptoms are aggravated by nothing. Associated signs and symptoms: Pertinent positives: fever, rhinorrhea. The patient has not experienced similar symptoms in the past. The patient has been recently seen by a physician:. Pt reports decreased appetite, nausea, bodyaches, cough, congestion, fever, fatigue. Was seen by PCP yesterday, tested for covid and got a positive result today.. 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 - Social history:: Smoking status: Patient denies any tobacco usage or history of. ROS: 12:23 Cardiovascular: Negative for chest pain, palpitations, and edema. kb 12:23 Constitutional: Positive for body aches, chills, fatigue, fever, malaise, poor PO intake. 12:23 ENT: Positive for rhinorrhea, sinus congestion. 12:23 Respiratory: Positive for cough. 12:23 All other systems are negative. 12:24 Abdomen/GI: Positive for nausea. kb Exam: 12:24 Constitutional: This is a well developed, well nourished patient who is awake, alert, kb and in no acute distress. Head/Face: Normocephalic, atraumatic. ENT: Moist Mucous membranes Cardiovascular: Regular rate and rhythm with a normal S1 and S2. No gallops, murmurs, or rubs. No pulse deficits. Respiratory: Respirations even and unlabored. No increased work of breathing. Talking in full sentences Abdomen/GI: Soft, non-tender. No distention Skin: Warm, dry with normal turgor. Normal color. MS/ Extremity: Pulses equal, no cyanosis. Neurovascular intact. Full, normal range of motion. Neuro: Awake and alert, GCS 15, oriented to person, place, time, and situation. Moves all extremities. Normal gait. Psych: Awake, alert, with orientation to person, place and time. Behavior, mood, and affect are within normal limits. Vital Signs: 11:23 BP 106 / 66; Pulse 77; Resp 16; Temp 98.4(O); Pulse Ox 99% on R/A; ss 12:30 BP 106 / 67 Supine; Pulse 68; ll1 12:33 BP 118 / 77 Sitting; Pulse 70; ll1 12:35 BP 102 / 76 Standing; Pulse 78; ll1 12:47 BP 115 / 64; Pulse 79; Resp 17; Pulse Ox 100% on R/A; ll1 MDM: 11:16 Patient medically screened. kb 12:20 Data reviewed: vital signs, nurses notes. Data interpreted: Pulse oximetry: on room air kb is 99 %. Interpretation: normal. Counseling: I had a detailed discussion with the patient and/or guardian regarding: the historical points, exam findings, and any diagnostic results supporting the discharge/admit diagnosis, radiology results, the need for outpatient follow up, a family practitioner, to return to the emergency department if symptoms worsen or persist or if there are any questions or concerns that arise at home. 12:24 ED course: Pt insistent upon prescription for paxlovid. . kb 09/16 12:49 Order name: Urine Dipstick-Ancillary; Complete Time: 13:02 EDMS 09/16 11:24 Order name: Chest Single View XRAY; Complete Time: 12:10 kb 09/16 12:15 Order name: PO challenge; Complete Time: 12:18 kb 09/16 12:22 Order name: Orthostatics; Complete Time: 12:38 kb 09/16 12:22 Order name: Urine Dipstick-Ancillary (obtain specimen); Complete Time: 12:47 kb Administered Medications: No medications were administered Disposition Summary: 09/16/22 13:02 Discharge Ordered Location: Home kb Condition: Stable kb Diagnosis - SARS-associated coronavirus as the cause of diseases classified elsewhere kb Followup: kb - With: Emergency Department - When: As needed - Reason: Worsening of condition Followup: kb - With: Private Physician - When: 2 - 3 days - Reason: Recheck today's complaints, Continuance of care, Re-evaluation by your physician Discharge Instructions: - Discharge Summary Sheet kb - COVID-19 kb - Viral Illness, Adult kb Forms: - Medication Reconciliation Form kb - Thank You Letter kb - Antibiotic Education kb - Prescription Opioid Use kb Prescriptions: - Paxlovid (EUA) 150 mg x 2- 100 mg Oral tablet - take 3 tablet by ORAL route 2 times per day for 5 days per package directions; kb 30 tablet; Refills: 0, Product Selection Permitted Signatures: Dispatcher [employer] Kristal Mata, CELINA KRUEGER-Milena Aguirre RN RN ss Bronson Kramer RN RN ll1
--- NOTE | 2022-09-16 13:03 | ER ---
Nurse's Notes [facility] Name: Tessa Vogel Age: 52 yrs Sex: Female : 1970 Arrival Date: 09/16/2022 Time: 11:11 Bed 18 Private MD: Diagnosis: SARS-associated coronavirus as the cause of diseases classified elsewhere Presentation: 09/16 11:23 Chief complaint: Patient states: Tested for COVID yesterday which was positive. Pt c/o ss decreased appetite, nausea. Coronavirus screen: Client presents with at least one sign or symptom that may indicate coronavirus-19. Ebola Screen: Patient denies exposure to infectious person. Patient denies travel to an Ebola-affected area in the 21 days before illness onset. Initial Sepsis Screen: Does the patient meet any 2 criteria? No. Patient's initial sepsis screen is negative. Does the patient have a suspected source of infection? No. Patient's initial sepsis screen is negative. Risk Assessment: Do you want to hurt yourself or someone else? Patient reports no desire to harm self or others. Onset of symptoms was September 15, 2022. 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 - Social history:: Smoking status: Patient denies any tobacco usage or history of. Screenin:41 [facility] ED Fall Risk Assessment (Adult) Impaired Gait Yes (1 pt) Mobility Assist ll1 Device Used Yes (1 pt) Score/Fall Risk Level 0 - 2 = Low Risk Oriented to surroundings, Maintained a safe environment, Educated pt \T\ family on fall prevention, incl call for assistance when getting out of bed, Provided non-skid footwear, Hourly rounding (assess needs \T\ fall precautionary measures) done. Abuse screen: Denies threats or abuse. Nutritional screening: No deficits noted. Tuberculosis screening: No symptoms or risk factors identified. Assessment: 11:55 General: Appears uncomfortable, ill, Behavior is calm, cooperative, appropriate for ll1 age. Pain: Denies pain. Neuro: Reports dizziness, headache weakness. Cardiovascular: No deficits noted. Respiratory: Reports cough that is. Musculoskeletal: Circulation, motion, and sensation intact. Capillary refill < 3 seconds, Reports weakness in all over. 12:00 Reassessment: No changes from previously documented assessment. Patient and/or family ll1 updated on plan of care and expected duration. Pain level reassessed. Patient is alert, oriented x 3, equal unlabored respirations, skin warm/dry/pink. given warm blanket. 12:42 Reassessment: No changes from previously documented assessment. Patient and/or family ll1 updated on plan of care and expected duration. Pain level reassessed. Patient is alert, oriented x 3, equal unlabored respirations, skin warm/dry/pink. 12:47 Reassessment: No changes from previously documented assessment. Patient and/or family ll1 updated on plan of care and expected duration. Pain level reassessed. 13:26 Reassessment: No changes from previously documented assessment. Patient and/or family ll1 updated on plan of care and expected duration. Pain level reassessed. Patient is alert, oriented x 3, equal unlabored respirations, skin warm/dry/pink. Vital Signs: 11:23 BP 106 / 66; Pulse 77; Resp 16; Temp 98.4(O); Pulse Ox 99% on R/A; ss 12:30 BP 106 / 67 Supine; Pulse 68; ll1 12:33 BP 118 / 77 Sitting; Pulse 70; ll1 12:35 BP 102 / 76 Standing; Pulse 78; ll1 12:47 BP 115 / 64; Pulse 79; Resp 17; Pulse Ox 100% on R/A; ll1 ED Course: 11:11 Patient arrived in ED. mr 11:16 [facility] Man[facility]C [facility] kb 11:16 Zeb Hillman MD is Attending Physician. kb 11:18 Bronson Kramer, AUSTEN is Primary Nurse. ll1 11:18 Arm band placed on Patient placed in an exam room, on a stretcher. ll1 11:27 Triage completed. ss 12:05 Chest Single View XRAY In Process Unspecified. EDMS 12:41 Patient has correct armband on for positive identification. Placed in gown. Bed in low ll1 position. Client placed on continuous cardiac and pulse oximetry monitoring. NIBP monitoring applied. 12:41 No provider procedures requiring assistance completed. Patient did not have IV access ll1 during this emergency room visit. Administered Medications: No medications were administered Medication: 12:41 VIS not applicable for this client. ll1 Outcome: 13:02 Discharge ordered by . viviane 13:27 Patient left the ED. ll1 13:27 Discharged to home ambulatory. ll1 13:27 Condition: stable 13:27 Discharge instructions given to patient, Instructed on discharge instructions, follow up and referral plans. medication usage, Demonstrated understanding of instructions, follow-up care, medications, Prescriptions given X 1. Signatures: Dispatcher [employer] EDMS Kristal Manrique, CELINA DE LEONP-Ros Arteaga Shelby, RN RN Bronson Gonzalez RN RN ll1
[2022-09-16 13:32] VITALS: TEMP 98.4
[2022-09-16 13:36] VITALS: BP 115/64; O2SAT 100
== END 2022-09-16 13:27 | disposition home or self-care (01) ==
LOC: ER 11:07
DX: U07.1 COVID-19 (principal); Z88.0 Allergy status to penicillin; Z88.5 Allergy status to narcotic agent; Z88.8 Allergy status to other drugs, medicaments and biological substances; Z91.048 Other nonmedicinal substance allergy status
CPT/HCPCS: 71045; 81003; 99283

== ENCOUNTER 2023-04-28 08:10 | Emergency (ER) | payer BC ==
--- OUTSIDE RECORDS SUMMARY | 2023-04-28 08:35 | XMS REPORT | Continuity of Care Document ---
:1970 Author Organization [facility] t Address [address] [place] [address] [address] [place] [address] Care Team Providers Name Role Phone JARETH MISSY Primary Care Physician Unavailable MIGUEL ALMARAZ Attending Clinician Unavailable SOFY CHONG Attending Clinician Unavailable SOFY CHONG Attending Clinician Unavailable HANSEL PINEDO Attending Clinician Unavailable HANSEL PINEDO Attending Clinician Unavailable Doctor Unassigned, [place] Attending Clinician Unavailable Motility, Endoscopy Attending Clinician Unavailable VLAD MÉDNEZ Attending Clinician Unavailable VLAD MÉNDEZ Attending Clinician Unavailable Vlad Méndez MD Attending Clinician Mali Birch RN Attending Clinician Unavailable Opal Fernandez MD Attending Clinician Cameron Bassett MD Attending Clinician Lab, Lcc Attending Clinician Unavailable Lab, Ang - Db Attending Clinician Unavailable CAMERON BASSETT Attending Clinician Unavailable Zeb Sparks MD Attending Clinician Johnny Myers DO Attending Clinician Domenic Seaman MD Attending Clinician [facility] Attending Clinician [phone] Codey Costa MD Attending Clinician Bonita Watkins NP Attending Clinician OPAL FERNANDEZ Attending Clinician Unavailable Ricky Mejia MD Attending Clinician [phone] Melba NEVAREZ, Marielos Ramsey Attending Clinician Carolina Mccall MA Attending Clinician Unavailable MISSY TEMPLETON Attending Clinician Unavailable Anedc BILINGUAL MEDICAL ASSISTANT, Missy Attending Clinician STEPAN MOROCHO Attending Clinician Unavailable Visit, [facility] Nurse Attending Clinician Unavailable Stepan Morocho MD Attending Clinician 2, [facility] Lab Attending Clinician Unavailable Pob, [facility] Main Attending Clinician Unavailable Katie Mckeon MD Attending Clinician KTAIE MCKEON Attending Clinician Unavailable Nurse, Marilu Angeles Attending Clinician Unavailable Wendy Smith MD Attending Clinician Fabrizio Dunbar MD Attending Clinician JANICE SILVA Attending Clinician Unavailable Santos Maza MD Attending Clinician Destiny Hahn MD Attending Clinician Only, Ang Db Test Attending Clinician Unavailable Unknown, Attending Attending Clinician Unavailable OBI-EDWARD, IRMA Attending Clinician Unavailable OBI-EDWARD, IRMA Attending Clinician Unavailable Miguel Almaraz MD Attending Clinician DESTINY HAHN Attending Clinician Unavailable SANTOS MAZA Attending Clinician Unavailable DOMENIC SEAMAN Attending Clinician Unavailable ELI HOFFMANN Attending Clinician Unavailable Eli Hoffmann MD Attending Clinician Zak Jeffers RN Attending Clinician Unavailable Provider, [facility] Attending Clinician Unavailable ANDIE VELASCO Attending Clinician Unavailable WENDY SMITH Attending Clinician Unavailable [place] Attending Clinician ELMIRA RODGERS Attending Clinician Unavailable Lanette Weinberg Attending Clinician KEDAR BECKMAN Attending Clinician Unavailable Kedar Beckman MD Attending Clinician FABRIZIO DUNBAR Attending Clinician Unavailable FABRIZIO DUNBAR Attending Clinician Unavailable KATHRYN FERNANDO Attending Clinician Unavailable IRINA BRICEÑO Attending Clinician Unavailable Irina Briceño MD Attending Clinician DANIEL PATRICIO Attending Clinician Unavailable YARA MORRISON Attending Clinician Unavailable [place], [facility] Test Attending Clinician Unavailable SONYA GILLIS Attending Clinician Unavailable Meseret Fraire MD Attending Clinician Lucy Virk Attending Clinician MESERET FRAIRE Attending Clinician Unavailable Nurse, [facility] Pob Immunization Attending Clinician Unavailable Donato Palmer DO Attending Clinician DONATO PALMER Attending Clinician Unavailable Rafael BERNAL, [facility] Attending Clinician [facility] Attending Clinician Unavailable Justyna Garrido PA-C Attending Clinician JUSTYNA GARRIDO Attending Clinician Unavailable Lab, [facility] Fam Pob I Attending Clinician Unavailable Sonya Jo Attending Clinician Radha Johnston RN Attending Clinician Unavailable Hayden Dorado DO Attending Clinician Nurse, [facility] Attending Clinician Unavailable Sloan Ivy MD Attending Clinician SLOAN IVY Attending Clinician Unavailable Gabriela Collier MD Attending Clinician GABRIELA COLLIER Attending Clinician Unavailable Seymour Tristan MD Attending Clinician [facility], [facility] Heart Attending Clinician Unavailable VLAD MÉNDEZ Admitting Clinician Unavailable Vlad Méndez MD Admitting Clinician HANSEL PINEDO Admitting Clinician Unavailable CODEY COSTA Admitting Clinician Unavailable JANICE SILVA Admitting Clinician Unavailable SANTOS MAZA Admitting Clinician Unavailable FABRIZIO DUNBAR Admitting Clinician Unavailable OPAL FERNANDEZ Admitting Clinician Unavailable Opal Fernandez MD Admitting Clinician Payers Payer Name Policy Type Policy Number Effective Date Expiration Date [id number] 2017 EMPLOYEE PLAN 00:00:00 Problems Condition Condition Condition Status Onset Resolution Last Treating Co mments Source Name Details Category Date Date Treatment Clinician Date Diverticul Diverticul Disease Active U nivers osis of osis of 4-20 [place] hemorrhage hemorrhage 00 Me dical Branch Blood in Blood in Disease Active Unive rs stool stool 4-20 ity of 00:00: [place] 00 Medical Branch Abdominal Abdominal Disease Active Uni vers pain, pain, 4-20 ity of right right 00:00: [place] upper upper 00 Medical quadrant quadrant Branch Chronic Chronic Disease Active Univers idiopathic idiopathic 4-20 it y of constipati const[place] 00 [place] 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 Added automatic ally from request for surgery [id number] GERD GERD Disease Active 2020-09 Overview: Univer s without without 2-03 Formattin ity o f esophagiti esophagiti 00:00: g of this [place] s s 00 note Medical might be Branch different from the original. Added automatic ally from request for surgery [id number] Chronic Chronic Disease Active 2020-09 Univers abdominal abdominal 0-17 ity of pain pain 00:00: [place] 00 Medical Branch Tremor of Tremor of Disease Active 2020-09 Uni vers left hand left hand 0-17 ity of 00:00: [place] 00 Medical Branch Breast Breast Disease Active Univers cancer cancer 8-25 it[place] of screening screening [place] Rectal Rectal Disease Active 2020- Univers bleeding bleeding 8- ity of 00:00: Medical Branch Family Family Disease Active 2020- Univers history of history of 8 it y of cancer cancer 00:00: Medical Branch Hemorrhage Hemorrhage Disease Active 2020- U nivers of rectum of rectum 8 ity of and anus and anus 00:00: Medical [place] Allergies, Adverse Reactions, Alerts Allergy Allergy Status Severity Reaction(s) Onset Inactive Treating Comm ents Source Name Type Date Date Clinician HYDROCOD DRUG Active N/V Univers ONE INGREDI 01-14 ity of 00:00: Medical Branch Hydrocod Propensi Active Nausea Univer s one ty to and/or 01-14 ity of adverse Vomiting 00:00: [place] reaction 00 [facility] Branch Codeine Propensi Active Rash Methodi ty to 11-30 adverse 00:00: Hospita reaction 00 l s to drug Diclofen Propensi Active GI Bleeding M ethodi ac ty to 11-30 adverse 00:00: Hospita reaction 00 l s to drug Phenytoi Propensi Active Rash Method i n Sodium ty to 11-30 Extended adverse 00:00: Hospita reaction 00 l s to drug Hydrocod Propensi Active Other (See vomiting Methodi one ty to Comments) 11-30 adverse 00:00: Hospita reaction 00 l s to drug Hydrozin Propensi Active Rash Method i e ty to 11-30 adverse 00:00: Hospita reaction 00 l s to drug Penicill Propensi Active Rash Method i ins ty to 11-30 adverse 00:00: Hospita reaction 00 l s to drug HYDROXYZ DRUG Active Rash Univers INE INGREDI - ity of 00:00: Medical [place] Hydroxyz Propensi Active Rash Univer s ine ty to -14 ity of adverse 00:00: [place] reaction Medical Branch Iodine Propensi Active Anaphylaxis Uni vers And ty to 02-25 ity of Iodide adverse 00:00: [place] Containi reaction 00 Medica l ng s Branch Products IODINE Drug Active Anaphylaxis 2018-0 Unive rs AND Class 6-02 ity of IODIDE 00:00: [place] CONTAINI 00 Medical NG Branch PRODUCTS Penicill Propensi Active Rash 201[address] Univer s in ty to 04-27 ity of adverse 00:00: [place] reaction 00 Medical s Branch CODEINE DRUG Active N/V 2017- Univers INGREDI 04-27 ity of 00:00: [place] 00 Medical Branch PHENYTOI DRUG Active Rash 2017 Univers N INGREDI 04-27 ity of 00:00: [place] 00 Medical Branch PENICILL DRUG Active Rash 2017 Univers IN INGREDI 04-27 ity of 00:00: [place] 00 Medical Branch Codeine Propensi Active Nausea 2017- Univers ty to and/or 04-27 ity of adverse Vomiting 00:00: [place] reaction 00 Medical s Branch Phenytoi Propensi Active Rash Univer s n ty to 04-27 ity of adverse 00:00: [place] reaction 00 Medical s [place] Family History Family Member Diagnosis Comments Start Date Stop Date Source Natural brother [facility] Natural father [facility] Maternal aunt Breast cancer [facility] M[facility] mother Arthritis [facility] Paternal uncle Colon cancer [facility] Social History Social Habit Start Date Stop Date Quantity Comments Source History of tobacco Passive smoker Un iversity of use [facility] History SDOH University o f Alcohol Frequency [facility] edical [place] History SDOH University o f Alcohol Std Drinks [facility] History SDOH University o f Alcohol Binge [facility] al [place] Gender identity [facility] Exposure to 2023-01-23 2023-02-02 Not sure University of SARS-CoV-2 (event) 00:00:00 12:31:00 [facility] Alcohol intake 2022-12-20 2022-12-20 Current drinker [facility] dist 00:00:00 00:00:00 of alcohol Hospital (finding) History of Social 2022-12-20 2022-12-[address] function 00:00:00 00:00:00 Hospital Tobacco use and 2022-11-30 2022-11-30 Smokeless [facility] exposure 00:00:00 00:00:00 tobacco non-user Hospital Alcohol Comment 2022-07-23 2022-07-23 every weekend Univer sity of 00:00:00 00:00:00 [facility] Sex Ass[birth year] At [birth year] [facility] 00:00:00 00:00:00 Hospital Smoking Status Start Date Stop Date Source Never smoked tobacco [facility] Medications Ordered Filled Start Stop Current Ordering Indication Dosage Frequency Signature Comments Components Source Medication Medication Date Date Medication? Clinician (SIG) Name Name peg-electro 2023- Yes Please Uni vers lyte soln 02-07 follow ity of 236-.74-6 00:00: 04:59 insitructi [place] [address] -5.86 00 :00 ons Medical gram provided Branch solution peg-electro 2023- Yes Please Uni vers lyte soln 02-07 follow ity of 236-22.74-6 00:00: 04:[address]86 00 :00 ons Medical gram provided Branch solution peg-electro 2023- Yes Please Uni vers lyte soln 02-07 follow ity of -.74-6 00:00: 04:[address] 00 :00 ons Medical gram provided Branch solution peg-electro 2023- Yes Please Uni vers lyte soln 02-07 follow ity of 236-22.74-6 00:00: 04:[address] 00 :00 ons Medical gram provided Branch solution peg-electro 2023- Yes Please Uni vers lyte soln 02-07 follow ity of -.74-6 00:00: 04:[address] 00 :00 ons Medical gram provided Branch solution simethicone 2022- No PRN, Unive rs (GAS RELIEF 01-14- Starting ity of (SIMETHICON 16:08: 16:35 on Tue Chao as E)) 40 00 :20 01/14/23 at Medical mg/0.6 mL 1108, Branch drops Until 01/14/23 at 1135, Routine, Intra-op lactated 2022- No 1000mL at 42 Unive rs ringers IV 01-14-21 mL/hr, ity of infusion 15:15: 15:22 1,000 mL, Chao as 1,000 mL 00 :00 IV Medical Infusion, Branch ONCE, 1 dose, On Tue01/14/23 at 1015, Routine, Endo Pre-op lactated 3-0 3- No 1000mL at 42 Unive rs ringers IV 01-14 04-21 mL/hr, ity of infusion 15:15: 15:22 1,000 mL, Chao as 1,000 mL 00 :00 IV Medical Infusion, Branch ONCE, 1 dose, On Tue01/14/23 at 1015, Routine, Endo Pre-op peg-electro 2022-0 Yes Take as Uni vers lyte soln 4-20 directed ity of 236-22.74-6 00:[place] -[place] 00 colonoscop Medi nora gram y Branch solution peg-electro 2022-0 Yes Take as Uni vers lyte soln 4-20 directed ity of 236-22.74-6 00:00: [place] -5.86 00 colonoscop Medi nora gram y Branch solution peg-electro 2022-0 Yes Take as Uni vers lyte soln 4-20 directed ity of 236-22.74-6 00:00: [place] -5.86 00 colonoscop Medi nora gram y Branch solution peg-electro 2022-0 Yes Take as Uni vers lyte soln 4-20 directed ity of 236-22.74-6 00:00: [place] -5.86 00 colonoscop Medi nora gram y Branch solution peg-electro 2022-0 Yes Take as Uni vers lyte soln 4-20 directed ity of 236-22.74-6 00:00: [place] -5.[place] 00 colonoscop Medi nora gram y Branch solution peg-electro 2022-0 Yes Take as Uni vers lyte soln 4-20 directed ity of 236-22.74-6 00:00: [place] -5.86 00 colonoscop Medi nora gram y Branch solution peg-electro 2022-0 Yes Take as Uni vers lyte soln 4-20 directed ity of 236-22.74-6 00:00: [place] -5.86 00 colonoscop Medi nora gram y Branch solution peg-electro 3-0 Yes Take as Uni vers lyte soln 4-20 directed ity of 236-22.74-6 00:00: [place] -5.86 00 colonoscop Medi nora gram y Branch solution peg-electro 3-0 Yes Take as Uni vers lyte soln 4-20 directed ity of 236-22.74-6 00:00: [place] -5.86 00 colonoscop Medi nora gram y Branch solution peg-electro 3-0 Yes Take as Uni vers lyte soln 4-20 directed ity of 236-22.74-6 00:00: [place] -5.86 00 colonoscop Medi nora gram y Branch solution peg-electro 2022-0 Yes Take as Uni vers lyte soln 4-20 directed ity of 236-22.74-6 00:00: [place] -5.86 00 colonoscop Medi nora gram y Branch solution peg-electro 3-0 Yes Take as Uni vers lyte soln 4-20 directed ity of 236-22.74-6 00:00: [place] -5.86 00 colonoscop Medi nora gram y Branch solution peg-electro 2022-0 Yes Take as Uni vers lyte soln 4-20 directed ity of 236-22.74-6 00:00: [place] -5.86 00 colonoscop Medi nora gram y Branch solution peg-electro 3-0 Yes Take as Uni vers lyte soln 4-20 directed ity of 236-22.74-6 00:00: [place] -5.86 00 colonoscop Medi nora gram y Branch solution peg-electro 3-0 Yes Take as Uni vers lyte soln 4-20 directed ity of 236-22.74-6 00:00: [place] -5.86 00 colonoscop Medi nora gram y Branch solution peg-electro 3-0 Yes Take as Uni vers lyte soln 4-20 directed ity of 236-22.74-6 00:00: [place] -5.86 00 colonoscop Medi nora gram y Branch solution peg-electro 3-0 Yes Take as Uni vers lyte soln 4-20 directed ity of 236-22.74-6 00:00: [place] -5.86 00 colonoscop Medi nora gram y Branch solution peg-electro 2022-0 Yes Take as Uni vers lyte soln 4-20 directed ity of 236-22.74-6 00:00: [place] -5.86 00 colonoscop Medi nora gram y Branch solution peg-electro 2022-0 Yes Take as Uni vers lyte soln 4-20 directed ity of 236-22.74-6 00:00: [place] -5.86 00 colonoscop Medi nora gram y Branch solution peg-electro 2022-0 Yes Take as Uni vers lyte soln 4-20 directed ity of 236-22.74-6 00:00: [place] -5.86 00 colonoscop Medi nora gram y Branch solution peg-electro 2022-0 Yes Take as Uni vers lyte soln 4-20 directed ity of 236-22.74-6 00:00: [place] -5.86 00 colonoscop Medi nora gram y Branch solution peg-electro 2022-0 Yes Take as Uni vers lyte soln 4-20 directed ity of 236-22.74-6 00:00: [place] -5.86 00 colonoscop Medi nora gram y Branch solution peg-electro 2022-0 Yes Take as Uni vers lyte soln 4-20 directed ity of 236-22.74-6 00:00: [place] -5.86 00 colonoscop Medi nora gram y Branch solution peg-electro 2022-0 Yes Take as Uni vers lyte soln 4-20 directed ity of 236-22.74-6 00:00: [place] -5.86 00 colonoscop Medi nora gram y Branch solution peg-electro 2022-0 Yes Take as Uni vers lyte soln 4-20 directed ity of 236-22.74-6 00:00: [place] -5.86 00 colonoscop Medi nora gram y Branch solution omeprazole 2022-0 2023- No [id number] 40mg Take 1 Univers 40 mg 4-20 - capsule by ity of capsule 00:00: 04:59 mouth in [place] 00 :00 the Medical morning Branch for 60 days. omeprazole 2023-0 2023- No [id number] 40mg Take 1 Univers 40 mg 4-20 06-20 capsule by ity of capsule 00:00: 04:59 mouth in [place] 00 :00 the Medical morning Branch for 60 days. omeprazole 2023-0 2023- No [id number] 40mg Take 1 Univers 40 mg 4-20 06-20 capsule by ity of capsule 00:00: 04:59 mouth in [place] 00 :00 the Medical morning Branch for 60 days. omeprazole 2023-0 2023- No [id number] 40mg Take 1 Univers 40 mg 4-20 06-20 capsule by ity of capsule 00:00: 04:59 mouth in [place] 00 :00 the [facility] morning Branch for 60 days. omeprazole 2023-0 2023- No [id number] 40mg Take 1 Univers 40 mg 4-20 06-20 capsule by ity of capsule 00:00: 04:59 mouth in [place] 00 :00 the [facility] morning Branch for 60 days. omeprazole 2023-0 2023- No [id number] 40mg Take 1 Univers 40 mg 4-20 06-20 capsule by ity of capsule 00:00: 04:59 mouth in [place] 00 :00 the Medical morning Branch for 60 days. omeprazole 2023-0 2023- No [id number] 40mg Take 1 Univers 40 mg 4-20 06-20 capsule by ity of capsule 00:00: 04:59 mouth in [place] 00 :00 the [facility] morning Branch for 60 days. omeprazole 2023-0 2023- No [id number] 40mg Take 1 Univers 40 mg 4-20 06-20 capsule by ity of capsule 00:00: 04:59 mouth in [place] 00 :00 the Medical morning Branch for 60 days. omeprazole 2023-0 2023- No [id number] 40mg Take 1 Univers 40 mg 4-20 06-20 capsule by ity of capsule 00:00: 04:59 mouth in [place] 00 :00 the Medical morning Branch for 60 days. omeprazole 2023-0 2023- No [id number] 40mg Take 1 Univers 40 mg 4-20 06-20 capsule by ity of capsule 00:00: 04:59 mouth in [place] 00 :00 the [facility] morning Branch for 60 days. omeprazole 2023-0 2023- No [id number] 40mg Take 1 Univers 40 mg 4-20 06-20 capsule by ity of capsule 00:00: 04:59 mouth in [place] 00 :00 the [facility] morning Branch for 60 days. omeprazole 2023-0 2023- No [id number] 40mg Take 1 Univers 40 mg 4-20 06-20 capsule by ity of capsule 00:00: 04:59 mouth in [place] 00 :00 the [facility] morning Branch for 60 days. omeprazole 2023-0 2023- No [id number] 40mg Take 1 Univers 40 mg 4-20 06-20 capsule by ity of capsule 00:00: 04:59 mouth in [place] 00 :00 the [facility] for 60 days. omeprazole 2023-0 2023- No [id number] 40mg Take 1 Univers 40 mg 4-20 06-20 capsule by ity of capsule 00:00: 04:59 mouth in [place] 00 :00 the [facility] for 60 days. omeprazole 2023-0 2023- No [id number] 40mg Take 1 Univers 40 mg 4-20 06-20 capsule by ity of capsule 00:00: 04:59 mouth in [place] 00 :00 the [facility] for 60 days. omeprazole 2023-0 3- No [id number] 40mg Take 1 Univers 40 mg 4-20 06-20 capsule by ity of capsule 00:00: 04:59 mouth in [place] 00 :00 the [facility] for 60 days. omeprazole 2023-0 2023- No [id number] 40mg Take 1 Univers 40 mg 4-20 06-20 capsule by ity of capsule 00:00: 04:59 mouth in [place] 00 :00 the [facility] for 60 days. omeprazole 2023-0 2023- No [id number] 40mg Take 1 Univers 40 mg 4-20 06-20 capsule by ity of capsule 00:00: 04:59 mouth in [place] 00 :00 the [facility] for 60 days. omeprazole 2023-0 2023- No [id number] 40mg Take 1 Univers 40 mg 4-20 06-20 capsule by ity of capsule 00:00: 04:59 mouth in [place] 00 :00 the [facility] morning Branch for 60 days. omeprazole 2023-0 2023- No [id number] 40mg Take 1 Univers 40 mg 4-20 06-20 capsule by ity of capsule 00:00: 04:59 mouth in [place] 00 :00 the Medical morning Branch for 60 days. omeprazole 2023-0 2023- No [id number] 40mg Take 1 Univers 40 mg 4-20 06-20 capsule by ity of capsule 00:00: 04:59 mouth in [place] 00 :00 the Medical morning Branch for 60 days. omeprazole 2023-0 2023- No [id number] 40mg Take 1 Univers 40 mg 4-20 06-20 capsule by ity of capsule 00:00: 04:59 mouth in [place] 00 :00 the Medical morning Branch for 60 days. omeprazole 2023-0 3- No [id number] 40mg Take 1 Univers 40 mg 4-20 06-20 capsule by ity of capsule 00:00: 04:59 mouth in [place] 00 :00 the Medical morning Branch for 60 days. omeprazole 3-0 3- No [id number] 40mg Take 1 Univers 40 mg 4-20 06-20 capsule by ity of capsule 00:00: 04:59 mouth in [place] 00 :00 the [facility] morning Branch for 60 days. omeprazole 2023-0 3- No [id number] 40mg Take 1 Univers 40 mg 4-20 06-20 capsule by ity of capsule 00:00: 04:59 mouth in [place] 00 :00 the Medical morning Branch for 60 days. omeprazole 2023-0 3- No [id number] 40mg Take 1 Univers 40 mg 4-20 06-20 capsule by ity of capsule 00:00: 04:59 mouth in [place] 00 :00 the [facility] morning Branch for 60 days. omeprazole 2023-0 3- No [id number] 40mg Take 1 Univers 40 mg 4-20 06-20 capsule by ity of capsule 00:00: 04:59 mouth in [place] 00 :00 the Medical morning Branch for 60 days. omeprazole 2023-0 2023- No [id number] 40mg Take 1 Univers 40 mg 4-20 06-20 capsule by ity of capsule 00:00: 04:59 mouth in [place] 00 :00 the Medical morning Branch for 60 days. omeprazole 2023-0 2023- No [id number] 40mg Take 1 Univers 40 mg 4-20 06-20 capsule by ity of capsule 00:00: 04:59 mouth in [place] 00 :00 the Medical morning Branch for 60 days. omeprazole 2022-0 2022- No [id number] 40mg Take 1 Univers 40 mg 4-20 06-20 capsule by ity of capsule 00:00: 04:59 mouth in [place] 00 :00 the Medical morning Branch for 60 days. omeprazole 2022-0 3- No [id number] 40mg Take 1 Univers 40 mg 4-20 06-20 capsule by ity of capsule 00:00: 04:59 mouth in [place] 00 :00 the [facility] morning Branch for 60 days. omeprazole 2022-0 Yes 20mg QD Take 20 mg M ethodi 20 mg 3-[address] tablet,sandra 00:00: daily. Hosp dino yed release 00 l (DR/EC) gabapentin 2022-2022- No 300mg [id number] Take 1 Method[facility] (NEURONTIN) -20 04-[id number] 300 mg 00:00: 04:59 3D (300 mg Hospita capsule 00 :00 total) by l mouth 3 (three) times a day for 14 days. methocarbam 0 2022- No 500mg Q.25D Take 1 M ethodi oL -20 -[address] (ROBAXIN) 00:00: 04:59 (500 mg Hosp dino 500 MG 00 :00 total) by l tablet mouth 4 (four) times a day for 14 days. acetaminoph 2022-0 2022- No 1000mg Q8H Take 2 M ethodi en (Tylenol 3-14 03-[address] Extra 00:00: 00:00 (1,000 mg Hospit a Strength) 00 :00 total) by l 500 MG mouth tablet every 8 (eight) hours as needed for mild pain. diphenhydra 2022-0 2022- No Take by Un rory mine HCl 3-02 26-06 mouth. ity of (BENADRYL 16:03: 00:00 [place] ORAL) 59 :00 Medical Branch diphenhydra 2022-0 3- No Take by Un rory mine HCl 3-02 26-06 mouth. ity of (BENADRYL 16:03: 00:00 [place] ORAL) 59 :00 Medical Branch famotidine Yes [id number] 40mg Take 1 Univers 40 mg 3-06 tablet by ity of tablet 00:00: mouth at [place] 00 bedtime. Medical Branch amitriptyli Yes [id number] Take 10 mg Univers ne 10 mg 3-06 02 PO QHS ity of tablet 00:00: -3, [place] 00 then 20 mg Medical PO QHS Branch days 3-6, then 30 mg PO QHS day 7 onwards. Decrease dose if too drowsy/kody e effects famotidine Yes [id number] 40mg Take 1 Univers 40 mg 3-06 tablet by ity of tablet 00:00: mouth at [place] 00 bedtime. Medical Branch amitriptyli Yes [id number] Take 10 mg Univers ne 10 mg 3-06 02 PO QHS ity of tablet 00:00: -, [place] 00 then 20 mg Medical PO QHS Branch days 3-6, then 30 mg PO QHS day 7 onwards. Decrease dose if too drowsy/kody e effects famotidine Yes [id number] 40mg Take 1 Univers 40 mg 3-06 tablet by ity of tablet 00:00: mouth at [place] 00 bedtime. Medical Branch amitriptyli Yes [id number] Take 10 mg [facility] 10 mg 3-06 02 PO QHS ity of tablet 00:00: -, [place] 00 then 20 mg Medical PO QHS Branch days 3-6, then 30 mg PO QHS day 7 onwards. Decrease dose if too drowsy/kody e effects famotidine Yes [id number] 40mg Take 1 [facility] 40 mg 3-06 tablet by ity of tablet 00:00: mouth at [place] 00 bedtime. [facility] amitriptyli Yes [id number] Take 10 mg [facility] ne 10 mg 3-06 02 PO QHS ity of tablet 00:00: -, [place] 00 then 20 mg Medical PO QHS Branch days 3-6, then 30 mg PO QHS day 7 onwards. Decrease dose if too drowsy/kody e effects famotidine Yes [id number] 40mg Take 1 [facility] 40 mg 3-06 tablet by ity of tablet 00:00: mouth at [place] 00 bedtime. [facility] amitriptyli Yes [id number] Take 10 mg [facility] ne 10 mg 3-06 02 PO QHS ity of tablet 00:00: -, 00 then 20 mg Medical PO QHS Branch days 3-6, then 30 mg PO QHS day 7 onwards. Decrease dose if too drowsy/kody e effects famotidine Yes [id number] 40mg Take 1 [facility] 40 mg 3-06 tablet by [facility]y of tablet 00:00: mouth at [place] 00 bedtime. [facility] amitriptyli Yes [id number] Take 10 mg [facility] 10 mg 3-06 02 PO QHS ity of tablet 00:00: -, 00 then 20 mg Medical PO QHS Branch days 3-6, then 30 mg PO QHS day 7 onwards. Decrease dose if too drowsy/kody e effects famotidine Yes [id number] 40mg Take 1 [facility] 40 mg 3-06 tablet by ity of tablet 00:00: mouth at [place] 00 bedtime. [facility] amitriptyli Yes [id number] Take 10 mg [facility] 10 mg 3-06 02 PO QHS ity of tablet 00:00: -, then 20 mg Medical PO QHS Branch days 3-6, then 30 mg PO QHS day 7 onwards. Decrease dose if too drowsy/kody e effects famotidine Yes [id number] 40mg Take 1 [facility] 40 mg 3-06 tablet by ity of tablet 00:00: mouth at [place] bedtime. [facility] amitriptyli Yes [id number] Take 10 mg [facility] 10 mg 3-06 02 PO QHS ity of tablet 00:00: -, 00 then 20 mg Medical PO QHS Branch days 3-6, then 30 mg PO QHS day 7 onwards. Decrease dose if too drowsy/kody e effects famotidine Yes [id number] 40mg Take 1 [facility] 40 mg 3-06 tablet by ity of tablet 00:00: mouth at [place] 00 bedtime. [facility] amitriptyli Yes [id number] Take 10 mg [facility] 10 mg 3-06 02 PO QHS ity of tablet 00:00: --, [place] 00 then 20 mg Medical PO QHS Branch days 3-6, then 30 mg PO QHS day 7 onwards. Decrease dose if too drowsy/kody e effects famotidine Yes [id number] 40mg Take 1 [facility] 40 mg 3-06 tablet by ity of tablet 00:00: mouth at [place] 00 bedtime. [facility] amitriptyli Yes [id number] Take 10 mg [facility] 10 mg 3-06 02 PO QHS ity of tablet 00:00: -, [place] 00 then 20 mg Medical PO QHS Branch days 3-6, then 30 mg PO QHS day 7 onwards. Decrease dose if too drowsy/kody e effects famotidine Yes [id number] 40mg Take 1 [facility] 40 mg 3-06 tablet by it[facility] of tablet 00:00: mouth at [place] 00 bedtime. [facility] amitriptyli Yes [id number] Take 10 mg [facility] 10 mg 3-06 02 PO QHS ity of tablet 00:00: -, [place] 00 then 20 mg Medical PO QHS Branch days 3-6, then 30 mg PO QHS day 7 onwards. Decrease dose if too drowsy/kody e effects famotidine Yes [id number] 40mg Take 1 [facility] 40 mg 3-06 tablet by [facility] of tablet 00:00: mouth at [place] 00 bedtime. [facility] amitriptyli Yes [id number] Take 10 mg [facility] 10 mg 3-06 02 PO QHS ity of tablet 00:00: -, [place] 00 then 20 mg Medical PO QHS Branch days 3-6, then 30 mg PO QHS day 7 onwards. Decrease dose if too drowsy/kody e effects famotidine Yes [id number] 40mg Take 1 [facility] 40 mg 3-06 tablet by ity of tablet 00:00: mouth at [place] 00 bedtime. [facility] amitriptyli Yes [id number] Take 10 mg [facility] 10 mg 3-06 02 PO QHS ity of tablet 00:00: -, [place] 00 then 20 mg Medical PO QHS Branch days 3-6, then 30 mg PO QHS day 7 onwards. Decrease dose if too drowsy/kody e effects famotidine Yes [id number] 40mg Take 1 [facility] 40 mg 3-06 tablet by ity of tablet 00:00: mouth at [place] 00 bedtime. [facility] amitriptyli Yes [id number] Take 10 mg [facility] 10 mg 3-06 02 PO QHS ity of tablet 00:00: -, 00 then 20 mg Medical PO QHS Branch days 3-6, then 30 mg PO QHS day 7 onwards. Decrease dose if too drowsy/kody e effects famotidine Yes [id number] 40mg Take 1 [facility] 40 mg 3-06 tablet by ity of tablet 00:00: mouth at [place] 00 bedtime. [facility] amitriptyli Yes [id number] Take 10 mg [facility] 10 mg 3- 02 PO QHS ity of tablet 00:00: , then 20 mg Medical PO QHS Branch days 3-6, then 30 mg PO QHS day 7 onwards. Decrease dose if too drowsy/kody e effects famotidine Yes [id number] 40mg Take 1 [facility] 40 mg 3-06 tablet by ity of tablet 00:00: mouth at [place] 00 bedtime. [facility] amitriptyli Yes [id number] Take 10 mg [facility] 10 mg -06 02 PO QHS ity of tablet 00:00: , then 20 mg Medical PO QHS Branch days 3-6, then 30 mg PO QHS day 7 onwards. Decrease dose if too drowsy/kody e effects famotidine Yes [id number] 40mg Take 1 [facility] 40 mg 3-06 tablet by ity of tablet 00:00: mouth at [place] 00 bedtime. [facility] amitriptyli Yes [id number] Take 10 mg [facility] 10 mg 3-06 02 PO QHS ity of tablet 00:00: -, 00 then 20 mg Medical PO QHS Branch days 3-6, then 30 mg PO QHS day 7 onwards. Decrease dose if too drowsy/kody e effects famotidine Yes [id number] 40mg Take 1 [facility] 40 mg 3-06 tablet by ity of tablet 00:00: mouth at [place] 00 bedtime. [facility] Branch amitriptyli Yes [id number] Take 10 mg [facility] 10 mg 3-06 02 PO QHS ity of tablet 00:00: days-3, [place] 00 then 20 mg Medical PO QHS Branch days 3-6, then 30 mg PO QHS day 7 onwards. Decrease dose if too drowsy/kody e effects famotidine Yes [id number] 40mg Take 1 [facility] 40 mg 3-06 tablet by ity of tablet 00:00: mouth at [place] 00 bedtime. [facility] amitriptyli Yes [id number] Take 10 mg [facility] 10 mg 3-06 02 PO QHS ity of tablet 00:00: -3, [place] 00 then 20 mg Medical PO QHS Branch days 3-6, then 30 mg PO QHS day 7 onwards. Decrease dose if too drowsy/kody e effects famotidine Yes [id number] 40mg Take 1 [facility] 40 mg 3-06 tablet by ity of tablet 00:00: mouth at [place] 00 bedtime. [facility] amitriptyli Yes [id number] Take 10 mg [facility] 10 mg 3-06 02 PO QHS ity of tablet 00:00: -3, [place] 00 then 20 mg Medical PO QHS Branch days 3-6, then 30 mg PO QHS day 7 onwards. Decrease dose if too drowsy/kody e effects famotidine Yes [id number] 40mg Take 1 [facility] 40 mg 3-06 tablet by ity of tablet 00:00: mouth at [place] 00 bedtime. [facility] amitriptyli Yes [id number] Take 10 mg [facility] 10 mg 3-06 02 PO QHS ity of tablet 00:00: -3, [place] 00 then 20 mg Medical PO QHS Branch days 3-6, then 30 mg PO QHS day 7 onwards. Decrease dose if too drowsy/kody e effects famotidine Yes [id number] 40mg Take 1 [facility] 40 mg 3-06 tablet by ity of tablet 00:00: mouth at [place] bedtime. [facility] amitriptyli Yes [id number] Take 10 mg [facility] 10 mg 3-06 02 PO QHS ity of tablet 00:00: -, 00 then 20 mg Medical PO QHS Branch days 3-6, then 30 mg PO QHS day 7 onwards. Decrease dose if too drowsy/kody e effects famotidine Yes [id number] 40mg Take 1 [facility] 40 mg 3-06 tablet by ity of tablet 00:00: mouth at [place] 00 bedtime. [facility] amitriptyli Yes [id number] Take 10 mg [facility] 10 mg 3- 02 PO QHS ity of tablet 00:00: -, 00 then 20 mg Medical PO QHS Branch days 3-6, then 30 mg PO QHS day 7 onwards. Decrease dose if too drowsy/kody e effects famotidine Yes [id number] 40mg Take 1 [facility] 40 mg 3-06 tablet by ity of tablet 00:00: mouth at [place] bedtime. [facility] amitriptyli Yes [id number] Take 10 mg [facility] 10 mg - 02 PO QHS ity of tablet 00:00: , then 20 mg Medical PO QHS Branch days 3-6, then 30 mg PO QHS day 7 onwards. Decrease dose if too drowsy/kody e effects famotidine Yes [id number] 40mg Take 1 [facility] 40 mg 3-06 tablet by ity of tablet 00:00: mouth at [place] bedtime. [facility] amitriptyli Yes [id number] Take 10 mg [facility] 10 mg -06 02 PO QHS ity of tablet 00:00: -, 00 then 20 mg Medical PO QHS Branch days 3-6, then 30 mg PO QHS day 7 onwards. Decrease dose if too drowsy/kody e effects famotidine Yes [id number] 40mg Take 1 [facility] 40 mg 3-06 tablet by ity of tablet 00:00: mouth at [place] bedtime. [facility] amitriptyli Yes [id number] Take 10 mg [facility] ne 10 mg - 02 PO QHS ity of tablet 00:00: , then 20 mg Medical PO QHS Branch days 3-6, then 30 mg PO QHS day 7 onwards. Decrease dose if too drowsy/kody e effects famotidine Yes [id number] 40mg Take 1 [facility] 40 mg 11-29 tablet by ity of tablet 00:00: mouth at 00 bedtime. Medical Branch amitriptyli Yes [id number] Take 10 mg [facility] 10 mg - 02 PO QHS ity of tablet 00:00: , 00 then 20 mg Medical PO QHS Branch days 3-6, then 30 mg PO QHS day 7 onwards. Decrease dose if too drowsy/kody e effects amitriptyli Yes [id number] Take 10 mg [facility] ne 10 mg 11-29 PO QHS ity of tablet 00:00: , then 20 mg Medical PO QHS Branch days 3-6, then 30 mg PO QHS day 7 onwards. Decrease dose if too drowsy/kody e effects amitriptyli Yes [id number] Take 10 mg [facility] ne 10 mg 11-29 PO QHS ity of tablet 00:00: , 00 then 20 mg Medical PO QHS Branch days 3-6, then 30 mg PO QHS day 7 onwards. Decrease dose if too drowsy/kody e effects amitriptyli Yes [id number] Take 10 mg [facility] 10 mg 11-29 02 PO QHS ity of tablet 00:00: , 00 then 20 mg Medical PO QHS Branch days 3-6, then 30 mg PO QHS day 7 onwards. Decrease dose if too drowsy/kody e effects amitriptyli Yes [id number] Take 10 mg [facility] ne 10 mg - 02 PO QHS ity of tablet 00:00: , 00 then 20 mg Medical PO QHS Branch days 3-6, then 30 mg PO QHS day 7 onwards. Decrease dose if too drowsy/kody e effects amitriptyli 2023-0 Yes [id number] Take 10 mg [facility] 10 mg -06 02 PO QHS ity of tablet 00:00: , 00 then 20 mg Medical PO QHS Branch days 3-6, then 30 mg PO QHS day 7 onwards. Decrease dose if too drowsy/kody e effects amitriptyli 2022-0 Yes [id number] Take 10 mg [facility] ne 10 mg - 02 PO QHS ity of tablet 00:00: , then 20 mg Medical PO QHS Branch days 3-6, then 30 mg PO QHS day 7 onwards. Decrease dose if too drowsy/kody e effects amitriptyli 2022-0 Yes [id number] Take 10 mg [facility] ne 10 mg - 02 PO QHS ity of tablet 00:00: , 00 then 20 mg Medical PO QHS Branch days 3-6, then 30 mg PO QHS day 7 onwards. Decrease dose if too drowsy/kody e effects amitriptyli 2022-0 Yes [id number] Take 10 mg [facility] ne 10 mg -02 25 PO QHS ity of tablet 00:00: , 00 then 20 mg Medical PO QHS Branch days 3-6, then 30 mg PO QHS day 7 onwards. Decrease dose if too drowsy/kody e effects amitriptyli 2022-0 Yes [id number] Take 10 mg [facility] ne 10 mg - 02 PO QHS ity of tablet 00:00: , then 20 mg Medical PO QHS Branch days 3-6, then 30 mg PO QHS day 7 onwards. Decrease dose if too drowsy/kody e effects amitriptyli 2022-0 Yes [id number] Take 10 mg [facility] ne 10 mg - 02 PO QHS ity of tablet 00:00: , 00 then 20 mg Medical PO QHS Branch days 3-6, then 30 mg PO QHS day 7 onwards. Decrease dose if too drowsy/kody e effects amitriptyli 2022-0 Yes [id number] Take 10 mg [facility] ne 10 mg - 02 PO QHS ity of tablet 00:00: , 00 then 20 mg Medical PO QHS Branch days 3-6, then 30 mg PO QHS day 7 onwards. Decrease dose if too drowsy/kody e effects amitriptyli 2022-0 Yes [id number] Take 10 mg [facility] ne 10 mg -06 02 PO QHS ity of tablet 00:00: -, 00 then 20 mg Medical PO QHS Branch days 3-6, then 30 mg PO QHS day 7 onwards. Decrease dose if too drowsy/kody e effects amitriptyli 2022-0 Yes [id number] Take 10 mg [facility] ne 10 mg - 02 PO QHS ity of tablet 00:00: -, 00 then 20 mg Medical PO QHS Branch days 3-6, then 30 mg PO QHS day 7 onwards. Decrease dose if too drowsy/kody e effects amitriptyli 2022-0 Yes [id number] Take 10 mg [facility] ne 10 mg - 02 PO QHS ity of tablet 00:00: , then 20 mg Medical PO QHS Branch days 3-6, then 30 mg PO QHS day 7 onwards. Decrease dose if too drowsy/kody e effects amitriptyli 2022-0 Yes [id number] Take 10 mg [facility] ne 10 mg - 02 PO QHS ity of tablet 00:00: , 00 then 20 mg Medical PO QHS Branch days 3-6, then 30 mg PO QHS day 7 onwards. Decrease dose if too drowsy/kody e effects amitriptyli 2022-0 Yes [id number] Take 10 mg [facility] ne 10 mg -06 02 PO QHS ity of tablet 00:00: , 00 then 20 mg Medical PO QHS Branch days 3-6, then 30 mg PO QHS day 7 onwards. Decrease dose if too drowsy/kody e effects amitriptyli 2022-0 Yes [id number] Take 10 mg [facility] ne 10 mg -06 02 PO QHS ity of tablet 00:00: , 00 then 20 mg Medical PO QHS Branch days 3-6, then 30 mg PO QHS day 7 onwards. Decrease dose if too drowsy/kody e effects amitriptyli 2022-0 Yes [id number] Take 10 mg [facility] ne 10 mg -06 02 PO QHS ity of tablet 00:00: , 00 then 20 mg Medical PO QHS Branch days 3-6, then 30 mg PO QHS day 7 onwards. Decrease dose if too drowsy/kody e effects amitriptyli 2022-0 Yes [id number] Take 10 mg [facility] ne 10 mg -06 02 PO QHS ity of tablet 00:00: , then 20 mg Medical PO QHS Branch days 3-6, then 30 mg PO QHS day 7 onwards. Decrease dose if too drowsy/kody e effects amitriptyli 2022-0 Yes [id number] Take 10 mg [facility] ne 10 mg - 02 PO QHS ity of tablet 00:00: , then 20 mg Medical PO QHS Branch days 3-6, then 30 mg PO QHS day 7 onwards. Decrease dose if too drowsy/kody e effects amitriptyli 2022-0 Yes [id number] Take 10 mg [facility] ne 10 mg - 02 PO QHS ity of tablet 00:00: , 00 then 20 mg Medical PO QHS Branch days 3-6, then 30 mg PO QHS day 7 onwards. Decrease dose if too drowsy/kody e effects amitriptyli 2022-0 Yes [id number] Take 10 mg [facility] ne 10 mg - 02 PO QHS ity of tablet 00:00: , then 20 mg Medical PO QHS Branch days 3-6, then 30 mg PO QHS day 7 onwards. Decrease dose if too drowsy/kody e effects amitriptyli 2022-0 Yes [id number] Take 10 mg [facility] ne 10 mg - 02 PO QHS ity of tablet 00:00: , 00 then 20 mg Medical PO QHS Branch days 3-6, then 30 mg PO QHS day 7 onwards. Decrease dose if too drowsy/kody e effects amitriptyli 2022-0 Yes [id number] Take 10 mg [facility] ne 10 mg - 02 PO QHS ity of tablet 00:00: , 00 then 20 mg Medical PO QHS Branch days 3-6, then 30 mg PO QHS day 7 onwards. Decrease dose if too drowsy/kody e effects amitriptyli 2022-0 Yes [id number] Take 10 mg [facility] ne 10 mg -06 02 PO QHS ity of tablet 00:00: -, 00 then 20 mg Medical PO QHS Branch days 3-6, then 30 mg PO QHS day 7 onwards. Decrease dose if too drowsy/kody e effects amitriptyli 2022-0 Yes [id number] Take 10 mg [facility] ne 10 mg - 02 PO QHS ity of tablet 00:00: , 00 then 20 mg Medical PO QHS Branch days 3-6, then 30 mg PO QHS day 7 onwards. Decrease dose if too drowsy/kody e effects amitriptyli 2022-0 Yes [id number] Take 10 mg [facility] ne 10 mg 11-29 PO QHS ity of tablet 00:00: , 00 then 20 mg Medical PO QHS Branch days 3-6, then 30 mg PO QHS day 7 onwards. Decrease dose if too drowsy/kody e effects amitriptyli 2022-0 Yes [id number] Take 10 mg [facility] ne 10 mg - 02 PO QHS ity of tablet 00:00: , 00 then 20 mg Medical PO QHS Branch days 3-6, then 30 mg PO QHS day 7 onwards. Decrease dose if too drowsy/kody e effects amitriptyli 2022-0 Yes [id number] Take 10 mg [facility] ne 10 mg - 02 PO QHS ity of tablet 00:00: , 00 then 20 mg Medical PO QHS Branch days 3-6, then 30 mg PO QHS day 7 onwards. Decrease dose if too drowsy/kody e effects amitriptyli 2022-0 Yes [id number] Take 10 mg [facility] ne 10 mg - 02 PO QHS ity of tablet 00:00: , 00 then 20 mg Medical PO QHS Branch days 3-6, then 30 mg PO QHS day 7 onwards. Decrease dose if too drowsy/kody e effects amitriptyli 2022-0 Yes [id number] Take 10 mg [facility] ne 10 mg - 02 PO QHS ity of tablet 00:00: -, 00 then 20 mg Medical PO QHS Branch days 3-6, then 30 mg PO QHS day 7 onwards. Decrease dose if too drowsy/kody e effects amitriptyli 2022-0 Yes [id number] Take 10 mg [facility] ne 10 mg - 02 PO QHS ity of tablet 00:00: -, 00 then 20 mg Medical PO QHS Branch days 3-6, then 30 mg PO QHS day 7 onwards. Decrease dose if too drowsy/kody e effects famotidine 2022- No [id number] 40mg Take 1 [facility] 40 mg 3- 04-20 tablet by ity of tablet 00:00: 00:00 mouth at [place] 00 :00 bedtime. [facility] famotidine 2022- No [id number] 40mg Take 1 [facility] 40 mg 3-06 04-20 tablet by ity of tablet 00:00: 00:00 mouth at [place] 00 :00 bedtime. [facility] famotidine 2022- No [id number] 40mg Take 1 [facility] 40 mg 3- 04-20 tablet by ity of tablet 00:00: 00:00 mouth at [place] 00 :00 bedtime. [facility] famotidine 2022- No [id number] 40mg Take 1 [facility] 40 mg 3-06 04-20 tablet by ity of tablet 00:00: 00:00 mouth at [place] 00 :00 bedtime. [facility] famotidine 2022- No [id number] 40mg Take 1 [facility] 40 mg 3-06 04-20 tablet by ity of tablet 00:00: 00:00 mouth at [place] 00 :00 bedtime. [facility] famotidine 2022- No Method i (PEPCID) 40 - 03-27 [facility] tablet 00:00: 00:00 [facility] 00 :00 l scopolamine 2022-0 Yes [id number] 1.5mg Apply 1 [facility] transdermal 2-25 Patch to ity of 1 mg over 3 00:00: skin every patch 00 72 Medical ([facility] wo) hours. scopolamine 2023-0 Yes [id number] 1.5mg Apply 1 [facility] transdermal 2-25 Patch to ity of 1 mg over 3 00:00: skin every [place] days patch 00 72 Medical ([facility] wo) hours. scopolamine 2023-0 Yes [id number] 1.5mg Apply 1 [facility] transdermal 2-25 Patch to ity of 1 mg over 3 00:00: skin every [place] days patch 00 72 Medical ([facility] wo) hours. scopolamine 2023-0 Yes [id number] 1.5mg Apply 1 [facility] transdermal 2-25 Patch to ity of 1 mg over 3 00:00: skin every [place] days patch 00 72 Medical ([facility] wo) hours. scopolamine 2023-0 Yes [id number] 1.5mg Apply 1 [facility] transdermal 2-25 Patch to ity of 1 mg over 3 00:00: skin every [place] days patch 00 72 Medical ([facility] wo) hours. scopolamine 2023-0 Yes [id number] 1.5mg Apply 1 [facility] transdermal 2-25 Patch to ity of 1 mg over 3 00:00: skin every [place] days patch 00 72 Medical ([facility] wo) hours. scopolamine 2023-0 2023- No [id number] 1.5mg Apply 1 [facility] transdermal 2-25 03-06 Patch to ity of 1 mg over 3 00:00: 00:00 skin every [place] days patch 00 :00 72 Medical ([facility] wo) hours. scopolamine 2023-0 2023- No [id number] 1.5mg Apply 1 [facility] transdermal 2-25 03-06 Patch to ity of 1 mg over 3 00:00: 00:00 skin every [place] days patch 00 :00 72 Medical ([facility] wo) hours. DULoxetine 2023-0 Yes [id number] 60mg Take 1 [facility] 60 mg 2-23 capsule by ity of capsule 00:00: mouth in [place] 00 the Medical morning. Branch DULoxetine 2023-0 Yes [id number] 60mg Take 1 [facility] 60 mg 2-23 capsule by ity of capsule 00:00: mouth in [place] 00 the Medical morning. Branch DULoxetine 2023-0 Yes [id number] 60mg Take 1 [facility] 60 mg 2-23 capsule by ity of capsule 00:00: mouth in [place] 00 the Medical morning. Branch DULoxetine 2023-0 Yes [id number] 60mg Take 1 [facility] 60 mg 2-23 capsule by ity of capsule 00:00: mouth in [place] 00 the Medical morning. Branch DULoxetine 2023-0 Yes [id number] 60mg Take 1 [facility] 60 mg 2-23 capsule by ity of capsule 00:00: mouth in [place] 00 the Medical morning. Branch DULoxetine 2023-0 Yes [id number] 60mg Take 1 [facility] 60 mg 2-23 capsule by ity of capsule 00:00: mouth in [place] 00 the Medical morning. Branch DULoxetine 2023-0 Yes [id number] 60mg Take 1 [facility] 60 mg 2-23 capsule by ity of capsule 00:00: mouth in [place] 00 the Medical morning. Branch DULoxetine 2023-0 Yes [id number] 60mg Take 1 [facility] 60 mg 2-23 capsule by ity of capsule 00:00: mouth in [place] the Medical morning. Branch DULoxetine 2023-0 Yes [id number] 60mg Take 1 [facility] 60 mg 2-23 capsule by ity of capsule 00:00: mouth in [place] the Medical morning. Branch DULoxetine 3-0 Yes [id number] 60mg Take 1 [facility] 60 mg 2-23 capsule by ity of capsule 00:00: mouth in [place] the Medical morning. Branch DULoxetine 2023-0 Yes [id number] 60mg Take 1 [facility] 60 mg 2-23 capsule by ity of capsule 00:00: mouth in [place] 00 the Medical morning. Branch DULoxetine 2023-0 2023- No [id number] 60mg Take 1 [facility] 60 mg 2-23 03-06 capsule by ity of capsule 00:00: 00:00 mouth in [place] 00 :00 the Medical morning. Branch DULoxetine 2023-0 2023- No [id number] 60mg Take 1 [facility] 60 mg 2-23 03-06 capsule by ity of capsule 00:00: 00:00 mouth in [place] 00 :00 the Medical morning. Branch diclofenac 2023-0 Yes [id number] 75mg Take 1 [facility] 75 mg EC 2-06 tablet by ity of tablet 00:00: mouth in [place] 00 the Medical morning Branch and 1 tablet in the evening. Take with meals. diclofenac 2023-0 Yes [id number] 75mg Take 1 [facility] 75 mg EC 2-06 tablet by ity of tablet 00:00: mouth in [place] [address] the Medical morning [place] and 1 tablet in the evening. Take with meals. diclofenac 2023-0 Yes [id number] 75mg Take 1 [facility] 75 mg EC 2-06 tablet by ity of tablet 00:00: mouth in [place] 00 the [facility] morning [place] and 1 tablet in the evening. Take with meals. diclofenac 2023-0 Yes [id number] 75mg Take 1 [facility] 75 mg EC 2-06 tablet by ity of tablet 00:00: mouth in [place] [address] the [facility] morning [place] and 1 tablet in the evening. Take with meals. diclofenac 2023-0 Yes [id number] 75mg Take 1 [facility] 75 mg EC 2-06 tablet by ity of tablet 00:00: mouth in [place] [address] the [facility] morning [place] and 1 tablet in the evening. Take with meals. diclofenac 2023-0 Yes [id number] 75mg Take 1 [facility] 75 mg EC 2-06 tablet by ity of tablet 00:00: mouth in [place] [address] the [facility] morning [place] and 1 tablet in the evening. Take with meals. diclofenac 3-0 Yes [id number] 75mg Take 1 [facility] 75 mg EC 2-06 tablet by ity of tablet 00:00: mouth in [place] [address] the [facility] morning [place] and 1 tablet in the evening. Take with meals. diclofenac 3-0 Yes [id number] 75mg Take 1 [facility] 75 mg EC 2-06 tablet by ity of tablet 00:00: mouth in [place] [address] the [facility] morning [place] and 1 tablet in the evening. Take with meals. diclofenac 3-0 2023- No [id number] 75mg Take 1 [facility] 75 mg EC 2-06 02-23 tablet by ity o f tablet 00:00: 00:00 mouth in [place] 00 :00 the [facility] morning [place] and 1 tablet in the evening. Take with meals. diclofenac 3-0 2023- No [id number] 75mg Take 1 [facility] 75 mg EC 2-06 02-23 tablet by ity o f tablet 00:00: 00:00 mouth in [place] 00 :00 the [facility] morning [place] and 1 tablet in the evening. Take with meals. villamatrelvi 2021-09 Yes [id number] 3{tbl} Take 3 [facility] r-ritonavir 2-22 tablets by it y of (PAXLOVID, 00:00: mouth in [place] EUA,) 300 00 the Medical mg (150 mg morning Branch x 2)-100 mg and 3 tablet tablets in the evening. [facility] 2021-09 Yes [id number] 3{tbl} Take 3 [facility] r-ritonavir 2-22 tablets by it y of (PAXLOVID, 00:00: mouth in [place] as EUA,) 300 00 the Medical mg (150 mg morning Branch x 2)-100 mg and 3 tablet tablets in the evening. [facility] 2021-09 Yes [id number] 3{tbl} Take 3 [facility] r-ritonavir 2-22 tablets by it y of (PAXLOVID, 00:00: mouth in [place] as EUA,) 300 00 the Medical mg (150 mg morning Branch x 2)-100 mg and 3 tablet tablets in the evening. [facility] 2021-09 Yes [id number] 3{tbl} Take 3 [facility] r-ritonavir 2-22 tablets by it y of (PAXLOVID, 00:00: mouth in [place] as EUA,) 300 00 the Medical mg (150 mg morning Branch x 2)-100 mg and 3 tablet tablets in the evening. [facility] 2021-09 Yes [id number] 3{tbl} Take 3 [facility] r-ritonavir 2-22 tablets by it y of (PAXLOVID, 00:00: mouth in [place] as EUA,) 300 00 the Medical mg (150 mg morning Branch x 2)-100 mg and 3 tablet tablets in the evening. [facility] 2021-09 Yes [id number] 3{tbl} Take 3 [facility] r-ritonavir 2-22 tablets by it y of (PAXLOVID, 00:00: mouth in [place] as EUA,) 300 00 the Medical mg (150 mg morning Branch x 2)-100 mg and 3 tablet tablets in the evening. [facility] 2021-09 Yes [id number] 3{tbl} Take 3 [facility] r-ritonavir 2-22 tablets by it y of (PAXLOVID, 00:00: mouth in [place] as EUA,) 300 00 the Medical mg (150 mg morning Branch x 2)-100 mg and 3 tablet tablets in the evening. [facility] 2021-09 Yes [id number] 3{tbl} Take 3 [facility] r-ritonavir 2-22 tablets by it y of (PAXLOVID, 00:00: mouth in [place] as EUA,) 300 00 the Medical mg (150 mg morning Branch x 2)-100 mg and 3 tablet tablets in the evening. [facility] 2021-09 Yes [id number] 3{tbl} Take 3 [facility] r-ritonavir 2-22 tablets by it y of (PAXLOVID, 00:00: mouth in [place] EUA,) 300 00 the Medical mg (150 mg morning Branch x 2)-100 mg and 3 tablet tablets in the evening. [facility] 2021-09 Yes [id number] 3{tbl} Take 3 [facility] r-ritonavir 2-22 tablets by it y of (PAXLOVID, 00:00: mouth in [place] EUA,) 300 00 the Medical mg (150 mg morning Branch x 2)-100 mg and 3 tablet tablets in the evening. [facility] 2021-09 Yes [id number] 3{tbl} Take 3 [facility] r-ritonavir 2-22 tablets by it y of (PAXLOVID, 00:00: mouth in [place] EUA,) 300 00 the Medical mg (150 mg morning Branch x 2)-100 mg and 3 tablet tablets in the evening. [facility] 2021-09 Yes [id number] 3{tbl} Take 3 [facility] r-ritonavir 2-22 tablets by it y of (PAXLOVID, 00:00: mouth in [place] EUA,) 300 00 the Medical mg (150 mg morning Branch x 2)-100 mg and 3 tablet tablets in the evening. [facility] 2021-09 Yes [id number] 3{tbl} Take 3 [facility] r-ritonavir 2-22 tablets by it y of (PAXLOVID, 00:00: mouth in [place] EUA,) 300 00 the Medical mg (150 mg morning Branch x 2)-100 mg and 3 tablet tablets in the evening. [facility] 2021-09 Yes [id number] 3{tbl} Take 3 [facility] r-ritonavir 2-22 tablets by it y of (PAXLOVID, 00:00: mouth in [place] EUA,) 300 00 the Medical mg (150 mg morning Branch x 2)-100 mg and 3 tablet tablets in the evening. [facility] 2021-09 Yes [id number] 3{tbl} Take 3 [facility] r-ritonavir 2-22 tablets by it y of (PAXLOVID, 00:00: mouth in [place] EUA,) 300 00 the Medical mg (150 mg morning Branch x 2)-100 mg and 3 tablet tablets in the evening. [facility] 2021-09 Yes [id number] 3{tbl} Take 3 [facility] r-ritonavir 2-22 tablets by it y of (PAXLOVID, 00:00: mouth in [place] EUA,) 300 00 the Medical mg (150 mg morning Branch x 2)-100 mg and 3 tablet tablets in the evening. [facility] 2021-09- No [id number] 3{tbl} Take 3 [facility] r-ritonavir 2-22 02-23 tablets by i ty of (PAXLOVID, 00:00: 00:00 mouth in [place] EUA,) 300 00 :00 the Medical mg (150 mg morning Branch x 2)-100 mg and 3 tablet tablets in the evening. [facility] 2021-09- No [id number] 3{tbl} Take 3 [facility] r-ritonavir 2-22 02-23 tablets by i ty of (PAXLOVID, 00:00: 00:00 mouth in [place] EUA,) 300 00 :00 the Medical mg (150 mg morning Branch x 2)-100 mg and 3 tablet tablets in the evening. azithromyci 2021-09 Yes [id number] 250mg Take 1 [facility] n 250 mg 2-21 tablet by ity of tablet 00:00: mouth in [place] 00 the Medical morning. Branch Take 500 mg day 1, then 250 mg days 2 to 5. ondansetron 2021-09 Yes [id number] 4mg Take 1 [facility] 4 mg 2-21 tablet by ity of disintegrat 00:00: mouth [place] ing tablet 00 every 8 Medica l (eight) Branch hours as needed for Nausea and Vomiting (N/V). bromphenira 2021-09 Yes [id number] 5mL Take 5 mL [facility] mine-pseudo 2-21 by mouth 3 it y of ephedrine-D 00:00: (three) [place] (BROMFED 00 times Medical DM) 2-30-10 daily as Bran ch mg/5 mL needed for syrup Congestion /Allergies or Cold symptoms. azithromyci 2021-09 Yes [id number] 250mg Take 1 [facility] n 250 mg 2-21 tablet by ity of tablet 00:00: mouth in [place] 00 the Medical morning. Branch Take 500 mg day 1, then 250 mg days 2 to 5. ondansetron 2021-09 Yes [id number] 4mg Take 1 [facility] 4 mg 2-21 tablet by ity of disintegrat 00:00: mouth [place] ing tablet 00 every 8 Medica l (eight) Branch hours as needed for Nausea and Vomiting (N/V). bromphenira 2021-09 Yes [id number] 5mL Take 5 mL [facility] mine-pseudo 2-21 by mouth 3 it y of ephedrine-D 00:00: (three) [place] (BROMFED 00 times Medical DM) 2-30-10 daily as Bran ch mg/5 mL needed for syrup Congestion /Allergies or Cold symptoms. azithromyci 2021-09 Yes [id number] 250mg Take 1 [facility] n 250 mg 2-21 tablet by ity of tablet 00:00: mouth in [place] 00 the Medical morning. Branch Take 500 mg day 1, then 250 mg days 2 to 5. ondansetron 2021-09 Yes [id number] 4mg Take 1 [facility] 4 mg 2-21 tablet by ity of disintegrat 00:00: mouth [place] ing tablet 00 every 8 Medica l (eight) Branch hours as needed for Nausea and Vomiting (N/V). bromphenira 2021-09 Yes [id number] 5mL Take 5 mL [facility] mine-pseudo 2-21 by mouth 3 it y of ephedrine-D 00:00: (three) [place] (BROMFED 00 times Medical DM) 2-30-10 daily as Bran ch mg/5 mL needed for syrup Congestion /Allergies or Cold symptoms. azithromyci 2021-09 Yes [id number] 250mg Take 1 [facility] n 250 mg 2-21 tablet by ity of tablet 00:00: mouth in [place] 00 the Medical morning. Branch Take 500 mg day 1, then 250 mg days 2 to 5. ondansetron 2021-09 Yes [id number] 4mg Take 1 [facility] 4 mg 2-21 tablet by ity of disintegrat 00:00: mouth [place] ing tablet 00 every 8 Medica l (eight) Branch hours as needed for Nausea and Vomiting (N/V). bromphenira 2021-09 Yes [id number] 5mL Take 5 mL [facility] mine-pseudo 2-21 by mouth 3 it y of ephedrine-D 00:00: (three) [place] (BROMFED 00 times Medical DM) 2-30-10 daily as Bran ch mg/5 mL needed for syrup Congestion /Allergies or Cold symptoms. azithromyci 2021-09 Yes [id number] 250mg Take 1 [facility] n 250 mg 2-21 tablet by ity of tablet 00:00: mouth in [place] 00 the Medical morning. Branch Take 500 mg day 1, then 250 mg days 2 to 5. ondansetron 2021-09 Yes [id number] 4mg Take 1 [facility] 4 mg 2-21 tablet by ity of disintegrat 00:00: mouth [place] ing tablet 00 every 8 Medica l (eight) Branch hours as needed for Nausea and Vomiting (N/V). bromphenira 2021-09 Yes [id number] 5mL Take 5 mL [facility] mine-pseudo 2-21 by mouth 3 it y of ephedrine-D 00:00: (three) [place] (BROMFED 00 times Medical DM) 2-30-10 daily as Bran ch mg/5 mL needed for syrup Congestion /Allergies or Cold symptoms. phenylephri 2021-09 Yes [id number] 10mL Take 10 mL [facility] ne-DM-guaif 2-21 by mouth 3 it y of enesin 00:00: (three) [place] (VANACOF 00 times Medical DM) daily as Branch 10-18-200 needed mg/15 mL (cough). Liq[facility] azithromyci 2021-09 Yes [id number] 250mg Take 1 [facility] n 250 mg 2-21 tablet by ity of tablet 00:00: mouth in [place] 00 the Medical morning. Branch Take 500 mg day 1, then 250 mg days 2 to 5. ondansetron 2021-09 Yes [id number] 4mg Take 1 [facility] 4 mg 2-21 tablet by ity of disintegrat 00:00: mouth [place] ing tablet 00 every 8 Medica l (eight) Branch hours as needed for Nausea and Vomiting (N/V). bromphenira 2021-09 Yes [id number] 5mL Take 5 mL [facility] mine-pseudo 2-21 by mouth 3 it y of ephedrine-D 00:00: (three) [place] (BROMFED 00 times Medical DM) 2-30-10 daily as Bran ch mg/5 mL needed for syrup Congestion /Allergies or Cold symptoms. phenylephri 2021-09 Yes [id number] 10mL Take 10 mL [facility] ne-DM-guaif 2-21 by mouth 3 it y of enesin 00:00: (three) [place] (VANACOF 00 times Medical DM) daily as Branch 10-18-200 needed mg/15 mL (cough). Liq[facility] azithromyci 2021-09 Yes [id number] 250mg Take 1 [facility] n 250 mg 2-21 tablet by ity of tablet 00:00: mouth in [place] 00 the Medical morning. Branch Take 500 mg day 1, then 250 mg days 2 to 5. ondansetron 2021-09 Yes [id number] 4mg Take 1 [facility] 4 mg 2-21 tablet by ity of disintegrat 00:00: mouth [place] ing tablet 00 every 8 Medica l (eight) Branch hours as needed for Nausea and Vomiting (N/V). bromphenira 2021-09 Yes [id number] 5mL Take 5 mL [facility] mine-pseudo 2-21 by mouth 3 it y of ephedrine-D 00:00: (three) [place] (BROMFED 00 times Medical DM) 2-30-10 daily as Bran ch mg/5 mL needed for syrup Congestion /Allergies or Cold symptoms. phenylephri 2021-09 Yes [id number] 10mL Take 10 mL [facility] ne-DM-guaif 2-21 by mouth 3 it y of enesin 00:00: (three) [place] (VANACOF 00 times Medical DM) daily as Branch 10-18-200 needed mg/15 mL (cough). [facility] azithromyci 2021-09 Yes [id number] 250mg Take 1 [facility] n 250 mg 2-21 tablet by ity of tablet 00:00: mouth in [place] 00 the Medical morning. Branch Take 500 mg day 1, then 250 mg days 2 to 5. ondansetron 2021-09 Yes [id number] 4mg Take 1 [facility] 4 mg 2-21 tablet by ity of disintegrat 00:00: mouth [place] ing tablet 00 every 8 Medica l (eight) Branch hours as needed for Nausea and Vomiting (N/V). bromphenira 2021-09 Yes [id number] 5mL Take 5 mL [facility] mine-pseudo 2-21 by mouth 3 it y of ephedrine-D 00:00: (three) [place] (BROMFED 00 times Medical DM) 2-30-10 daily as Bran ch mg/5 mL needed for syrup Congestion /Allergies or Cold symptoms. phenylephri 2021-09 Yes [id number] 10mL Take 10 mL [facility] ne-DM-guaif 2-21 by mouth 3 it y of enesin 00:00: (three) [place] (VANACOF 00 times Medical DM) daily as Branch 10-18-200 needed mg/15 mL (cough). Liq[facility] azithromyci 2021-09 Yes [id number] 250mg Take 1 [facility] n 250 mg 2-21 tablet by ity of tablet 00:00: mouth in [place] 00 the Medical morning. Branch Take 500 mg day 1, then 250 mg days 2 to 5. ondansetron 2021-09 Yes [id number] 4mg Take 1 [facility] 4 mg 2-21 tablet by ity of disintegrat 00:00: mouth [place] ing tablet 00 every 8 Medica l (eight) Branch hours as needed for Nausea and Vomiting (N/V). bromphenira 2021-09 Yes [id number] 5mL Take 5 mL [facility] mine-pseudo 2-21 by mouth 3 it y of ephedrine-D 00:00: (three) [place] (BROMFED 00 times Medical DM) 2-30-10 daily as Bran ch mg/5 mL needed for syrup Congestion /Allergies or Cold symptoms. phenylephri 2021-09 Yes [id number] 10mL Take 10 mL [facility] ne-DM-guaif 2-21 by mouth 3 it y of enesin 00:00: (three) [place] (VANACOF 00 times Medical DM) daily as Branch 10-18-200 needed mg/15 mL (cough). [facility] azithromyci 2021-09 Yes [id number] 250mg Take 1 [facility] n 250 mg 2-21 tablet by ity of tablet 00:00: mouth in [place] 00 the Medical morning. Branch Take 500 mg day 1, then 250 mg days 2 to 5. ondansetron 2021-09 Yes [id number] 4mg Take 1 [facility] 4 mg 2-21 tablet by ity of disintegrat 00:00: mouth [place] ing tablet 00 every 8 Medica l (eight) Branch hours as needed for Nausea and Vomiting (N/V). bromphenira 2021-09 Yes [id number] 5mL Take 5 mL [facility] mine-pseudo 2-21 by mouth 3 it y of ephedrine-D 00:00: (three) [place] (BROMFED 00 times Medical DM) 2-30-10 daily as Bran ch mg/5 mL needed for syrup Congestion /Allergies or Cold symptoms. phenylephri 2021-09 Yes [id number] 10mL Take 10 mL [facility] ne-DM-guaif 2-21 by mouth 3 it y of enesin 00:00: (three) [place] (VANACOF 00 times Medical DM) daily as Branch 10-18-200 needed mg/15 mL (cough). Liq[facility] azithromyci 2021-09 Yes [id number] 250mg Take 1 [facility] n 250 mg 2-21 tablet by ity of tablet 00:00: mouth in [place] 00 the Medical morning. Branch Take 500 mg day 1, then 250 mg days 2 to 5. ondansetron 2021-09 Yes [id number] 4mg Take 1 [facility] 4 mg 2-21 tablet by ity of disintegrat 00:00: mouth [place] ing tablet 00 every 8 Medica l (eight) Branch hours as needed for Nausea and Vomiting (N/V). bromphenira 2021-09 Yes [id number] 5mL Take 5 mL [facility] mine-pseudo 2-21 by mouth 3 it y of ephedrine-D 00:00: (three) [place] (BROMFED 00 times Medical DM) 2-30-10 daily as Bran ch mg/5 mL needed for syrup Congestion /Allergies or Cold symptoms. phenylephri 2021-09 Yes [id number] 10mL Take 10 mL [facility] ne-DM-guaif 2-21 by mouth 3 it y of enesin 00:00: (three) [place] (VANACOF 00 times Medical DM) daily as Branch 10-18-200 needed mg/15 mL (cough). Liq[facility] azithromyci 2021-09 Yes [id number] 250mg Take 1 [facility] n 250 mg 2-21 tablet by ity of tablet 00:00: mouth in [place] 00 the Medical morning. Branch Take 500 mg day 1, then 250 mg days 2 to 5. ondansetron 2021-09 Yes [id number] 4mg Take 1 [facility] 4 mg 2-21 tablet by ity of disintegrat 00:00: mouth [place] ing tablet 00 every 8 Medica l (eight) Branch hours as needed for Nausea and Vomiting (N/V). bromphenira 2021-09 Yes [id number] 5mL Take 5 mL [facility] mine-pseudo 2-21 by mouth 3 it y of ephedrine-D 00:00: (three) [place] (BROMFED 00 times Medical DM) 2-30-10 daily as Bran ch mg/5 mL needed for syrup Congestion /Allergies or Cold symptoms. phenylephri 2021-09 Yes [id number] 10mL Take 10 mL [facility] ne-DM-guaif 2-21 by mouth 3 it y of enesin 00:00: (three) [place] (VANACOF 00 times Medical DM) daily as Branch 10-18-200 needed mg/15 mL (cough). Liqd azithromyci 2021-09 Yes [id number] 250mg Take 1 [facility] n 250 mg 2-21 tablet by ity of tablet 00:00: mouth in [place] 00 the Medical morning. Branch Take 500 mg day 1, then 250 mg days 2 to 5. ondansetron 2021-09 Yes [id number] 4mg Take 1 [facility] 4 mg 2-21 tablet by ity of disintegrat 00:00: mouth [place] ing tablet 00 every 8 Medica l (eight) Branch hours as needed for Nausea and Vomiting (N/V). bromphenira 2021-09 Yes [id number] 5mL Take 5 mL [facility] mine-pseudo 2-21 by mouth 3 it y of ephedrine-D 00:00: (three) [place] (BROMFED 00 times Medical DM) 2-30-10 daily as Bran ch mg/5 mL needed for syrup Congestion /Allergies or Cold symptoms. phenylephri 2021-09 Yes [id number] 10mL Take 10 mL [facility] ne-DM-guaif 2-21 by mouth 3 it y of enesin 00:00: (three) [place] (VANACOF 00 times Medical DM) daily as Branch 10-18-200 needed mg/15 mL (cough). Liqd azithromyci 2021-09 Yes [id number] 250mg Take 1 [facility] n 250 mg 2-21 tablet by ity of tablet 00:00: mouth in [place] 00 the Medical morning. Branch Take 500 mg day 1, then 250 mg days 2 to 5. ondansetron 2021-09 Yes [id number] 4mg Take 1 [facility] 4 mg 2-21 tablet by ity of disintegrat 00:00: mouth [place] ing tablet 00 every 8 Medica l (eight) Branch hours as needed for Nausea and Vomiting (N/V). bromphenira 2021-09 Yes [id number] 5mL Take 5 mL [facility] mine-pseudo 2-21 by mouth 3 it y of ephedrine-D 00:00: (three) [place] (BROMFED 00 times Medical DM) 2-30-10 daily as Bran ch mg/5 mL needed for syrup Congestion /Allergies or Cold symptoms. phenylephri 2021-09 Yes [id number] 10mL Take 10 mL [facility] ne-DM-guaif 2-21 by mouth 3 it y of enesin 00:00: (three) [place] (VANACOF 00 times Medical DM) daily as Branch 10-18-200 needed mg/15 mL (cough). Liqd azithromyci 2021-09 Yes [id number] 250mg Take 1 [facility] n 250 mg 2-21 tablet by ity of tablet 00:00: mouth in [place] 00 the Medical morning. Branch Take 500 mg day 1, then 250 mg days 2 to 5. ondansetron 2021-09 Yes [id number] 4mg Take 1 [facility] 4 mg 2-21 tablet by ity of disintegrat 00:00: mouth [place] ing tablet 00 every 8 Medica l (eight) Branch hours as needed for Nausea and Vomiting (N/V). bromphenira 2021-09 Yes [id number] 5mL Take 5 mL [facility] mine-pseudo 2-21 by mouth 3 it y of ephedrine-D 00:00: (three) [place] (BROMFED 00 times Medical DM) 2-30-10 daily as Bran ch mg/5 mL needed for syrup Congestion /Allergies or Cold symptoms. phenylephri 2021-09 Yes [id number] 10mL Take 10 mL [facility] ne-DM-guaif 2-21 by mouth 3 it y of enesin 00:00: (three) [place] (VANACOF 00 times Medical DM) daily as Branch 10-18-200 needed mg/15 mL (cough). Liqd azithromyci 2021-09 Yes [id number] 250mg Take 1 [facility] n 250 mg 2-21 tablet by ity of tablet 00:00: mouth in [place] 00 the Medical morning. Branch Take 500 mg day 1, then 250 mg days 2 to 5. ondansetron 2021-09 Yes [id number] 4mg Take 1 [facility] 4 mg 2-21 tablet by ity of disintegrat 00:00: mouth [place] ing tablet 00 every 8 Medica l (eight) Branch hours as needed for Nausea and Vomiting (N/V). bromphenira 2021-09 Yes [id number] 5mL Take 5 mL [facility] mine-pseudo 2-21 by mouth 3 it y of ephedrine-D 00:00: (three) [place] (BROMFED 00 times Medical DM) 2-30-10 daily as Bran ch mg/5 mL needed for syrup Congestion /Allergies or Cold symptoms. phenylephri 2021-09 Yes [id number] 10mL Take 10 mL [facility] ne-DM-guaif 2-21 by mouth 3 it y of enesin 00:00: (three) [place] (VANACOF 00 times Medical DM) daily as Branch 10-18-200 needed mg/15 mL (cough). Liqd azithromyci 2021-09 Yes [id number] 250mg Take 1 [facility] n 250 mg 2-21 tablet by ity of tablet 00:00: mouth in [place] 00 the Medical morning. Branch Take 500 mg day 1, then 250 mg days 2 to 5. ondansetron 2021-09 Yes [id number] 4mg Take 1 [facility] 4 mg 2-21 tablet by ity of disintegrat 00:00: mouth [place] ing tablet 00 every 8 Medica l (eight) Branch hours as needed for Nausea and Vomiting (N/V). bromphenira 2021-09 Yes [id number] 5mL Take 5 mL [facility] mine-pseudo 2-21 by mouth 3 it y of ephedrine-D 00:00: (three) [place] (BROMFED 00 times Medical DM) 2-30-10 daily as Bran ch mg/5 mL needed for syrup Congestion /Allergies or Cold symptoms. phenylephri 2021-09 Yes [id number] 10mL Take 10 mL [facility] ne-DM-guaif 2-21 by mouth 3 it y of enesin 00:00: (three) [place] (VANACOF 00 times Medical DM) daily as Branch 10-18-200 needed mg/15 mL (cough). Liqd azithromyci 2021-09 Yes [id number] 250mg Take 1 [facility] n 250 mg 2-21 tablet by ity of tablet 00:00: mouth in [place] 00 the Medical morning. Branch Take 500 mg day 1, then 250 mg days 2 to 5. ondansetron 2021-09 Yes [id number] 4mg Take 1 [facility] 4 mg 2-21 tablet by ity of disintegrat 00:00: mouth [place] ing tablet 00 every 8 Medica l (eight) Branch hours as needed for Nausea and Vomiting (N/V). bromphenira 2021-09 Yes [id number] 5mL Take 5 mL [facility] mine-pseudo 2-21 by mouth 3 it y of ephedrine-D 00:00: (three) [place] (BROMFED 00 times Medical DM) 2-30-10 daily as Bran ch mg/5 mL needed for syrup Congestion /Allergies or Cold symptoms. phenylephri 2021-09 Yes [id number] 10mL Take 10 mL [facility] ne-DM-guaif 2-21 by mouth 3 it y of enesin 00:00: (three) [place] (VANACOF 00 times Medical DM) daily as Branch 10-18-200 needed mg/15 mL (cough). Liqd azithromyci 2021-09 Yes [id number] 250mg Take 1 [facility] n 250 mg 2-21 tablet by ity of tablet 00:00: mouth in [place] 00 the Medical morning. Branch Take 500 mg day 1, then 250 mg days 2 to 5. ondansetron 2021-09 Yes [id number] 4mg Take 1 [facility] 4 mg 2-21 tablet by ity of disintegrat 00:00: mouth [place] ing tablet 00 every 8 Medica l (eight) Branch hours as needed for Nausea and Vomiting (N/V). bromphenira 2021-09 Yes [id number] 5mL Take 5 mL [facility] mine-pseudo 2-21 by mouth 3 it y of ephedrine-D 00:00: (three) [place] (BROMFED 00 times Medical DM) 2-30-10 daily as Bran ch mg/5 mL needed for syrup Congestion /Allergies or Cold symptoms. phenylephri 2021-09 Yes [id number] 10mL Take 10 mL [facility] ne-DM-guaif 2-21 by mouth 3 it y of enesin 00:00: (three) [place] (VANACOF 00 times Medical DM) daily as Branch 10-18-200 needed mg/15 mL (cough). Liqd azithromyci 2021-09 Yes [id number] 250mg Take 1 [facility] n 250 mg 2-21 tablet by ity of tablet 00:00: mouth in [place] 00 the Medical morning. Branch Take 500 mg day 1, then 250 mg days 2 to 5. ondansetron 2021-09 Yes [id number] 4mg Take 1 [facility] 4 mg 2-21 tablet by ity of disintegrat 00:00: mouth [place] ing tablet 00 every 8 Medica l (eight) Branch hours as needed for Nausea and Vomiting (N/V). bromphenira 2021-09 Yes [id number] 5mL Take 5 mL [facility] mine-pseudo 2-21 by mouth 3 it y of ephedrine-D 00:00: (three) [place] (BROMFED 00 times Medical DM) 2-30-10 daily as Bran ch mg/5 mL needed for syrup Congestion /Allergies or Cold symptoms. phenylephri 2021-09 Yes [id number] 10mL Take 10 mL [facility] ne-DM-guaif 2-21 by mouth 3 it y of enesin 00:00: (three) [place] (VANACOF 00 times Medical DM) daily as Branch 10-18-200 needed mg/15 mL (cough). Liqd azithromyci 2021-09 Yes [id number] 250mg Take 1 [facility] n 250 mg 2-21 tablet by ity of tablet 00:00: mouth in [place] 00 the Medical morning. Branch Take 500 mg day 1, then 250 mg days 2 to 5. ondansetron 2021-09 Yes [id number] 4mg Take 1 [facility] 4 mg 2-21 tablet by ity of disintegrat 00:00: mouth [place] ing tablet 00 every 8 Medica l (eight) Branch hours as needed for Nausea and Vomiting (N/V). bromphenira 2021-09 Yes [id number] 5mL Take 5 mL [facility] mine-pseudo 2-21 by mouth 3 it y of ephedrine-D 00:00: (three) [place] (BROMFED 00 times Medical DM) 2-30-10 daily as Bran ch mg/5 mL needed for syrup Congestion /Allergies or Cold symptoms. phenylephri 2021-09 Yes [id number] 10mL Take 10 mL [facility] ne-DM-guaif 2-21 by mouth 3 it y of enesin 00:00: (three) [place] (VANACOF 00 times Medical DM) daily as Branch 10-18-200 needed mg/15 mL (cough). Liqd ondansetron 2021-09 Yes [id number] 4mg Take 1 [facility] 4 mg 2-21 tablet by ity of disintegrat 00:00: mouth [place] ing tablet 00 every 8 Medica l (eight) Branch hours as needed for Nausea and Vomiting (N/V). phenylephri 2021-09 Yes [id number] 10mL Take 10 mL [facility] ne-DM-guaif 2-21 by mouth 3 it y of enesin 00:00: (three) [place] (VANACOF 00 times Medical DM) daily as Branch 10-18-200 needed mg/15 mL (cough). Liqd ondansetron 2021-09 Yes [id number] 4mg Take 1 [facility] 4 mg 2-21 tablet by ity of disintegrat 00:00: mouth [place] ing tablet 00 every 8 Medica l (eight) Branch hours as needed for Nausea and Vomiting (N/V). phenylephri 2021-09 Yes [id number] 10mL Take 10 mL [facility] ne-DM-guaif 2-21 by mouth 3 it y of enesin 00:00: (three) [place] (VANACOF 00 times Medical DM) daily as Branch 10-18-200 needed mg/15 mL (cough). Liqd ondansetron 2021-09 Yes [id number] 4mg Take 1 [facility] 4 mg 2-21 tablet by ity of disintegrat 00:00: mouth [place] ing tablet 00 every 8 Medica l (eight) Branch hours as needed for Nausea and Vomiting (N/V). phenylephri 2021-09 Yes [id number] 10mL Take 10 mL [facility] ne-DM-guaif 2-21 by mouth 3 it y of enesin 00:00: (three) [place] (VANACOF 00 times Medical DM) daily as Branch 10-18-200 needed mg/15 mL (cough). Liqd ondansetron 2021-09 Yes [id number] 4mg Take 1 [facility] 4 mg 2-21 tablet by ity of disintegrat 00:00: mouth [place] ing tablet 00 every 8 Medica l (eight) Branch hours as needed for Nausea and Vomiting (N/V). phenylephri 2021-09 Yes [id number] 10mL Take 10 mL [facility] ne-DM-guaif 2-21 by mouth 3 it y of enesin 00:00: (three) [place] (VANACOF 00 times Medical DM) daily as Branch 10-18-200 needed mg/15 mL (cough). Liqd ondansetron 2021-09 Yes [id number] 4mg Take 1 [facility] 4 mg 2-21 tablet by ity of disintegrat 00:00: mouth [place] ing tablet 00 every 8 Medica l (eight) Branch hours as needed for Nausea and Vomiting (N/V). phenylephri 2021-09 Yes [id number] 10mL Take 10 mL [facility] ne-DM-guaif 2-21 by mouth 3 it y of enesin 00:00: (three) [place] (VANACOF 00 times Medical DM) daily as Branch 10-18-200 needed mg/15 mL (cough). Liqd ondansetron 2021-09 Yes [id number] 4mg Take 1 [facility] 4 mg 2-21 tablet by ity of disintegrat 00:00: mouth [place] ing tablet 00 every 8 Medica l (eight) Branch hours as needed for Nausea and Vomiting (N/V). phenylephri 2021-09 Yes [id number] 10mL Take 10 mL [facility] ne-DM-guaif 2-21 by mouth 3 it y of enesin 00:00: (three) [place] (VANACOF 00 times Medical DM) daily as Branch 10-18-200 needed mg/15 mL (cough). Liqd ondansetron 2021-09 Yes [id number] 4mg Take 1 [facility] 4 mg 2-21 tablet by ity of disintegrat 00:00: mouth [place] ing tablet 00 every 8 Medica l (eight) Branch hours as needed for Nausea and Vomiting (N/V). phenylephri 2021-09 Yes [id number] 10mL Take 10 mL [facility] ne-DM-guaif 2-21 by mouth 3 it y of enesin 00:00: (three) [place] (VANACOF 00 times Medical DM) daily as Branch 10-18-200 needed mg/15 mL (cough). Liqd ondansetron 2021-09 Yes [id number] 4mg Take 1 [facility] 4 mg 2-21 tablet by ity of disintegrat 00:00: mouth [place] ing tablet 00 every 8 Medica l (eight) Branch hours as needed for Nausea and Vomiting (N/V). phenylephri 2021-09 Yes [id number] 10mL Take 10 mL [facility] ne-DM-guaif 2-21 by mouth 3 it y of enesin 00:00: (three) [place] (VANACOF 00 times Medical DM) daily as Branch 10-18-200 needed mg/15 mL (cough). Liqd ondansetron 2021-09 Yes [id number] 4mg Take 1 [facility] 4 mg 2-21 tablet by ity of disintegrat 00:00: mouth [place] ing tablet 00 every 8 Medica l (eight) Branch hours as needed for Nausea and Vomiting (N/V). phenylephri 2021-09 Yes [id number] 10mL Take 10 mL [facility] ne-DM-guaif 2-21 by mouth 3 it y of enesin 00:00: (three) [place] (VANACOF 00 times Medical DM) daily as Branch 10-18-200 needed mg/15 mL (cough). Liqd ondansetron 2021-09 Yes [id number] 4mg Take 1 [facility] 4 mg 2-21 tablet by ity of disintegrat 00:00: mouth [place] ing tablet 00 every 8 Medica l (eight) Branch hours as needed for Nausea and Vomiting (N/V). phenylephri 2021-09 Yes [id number] 10mL Take 10 mL [facility] ne-DM-guaif 2-21 by mouth 3 it y of enesin 00:00: (three) [place] (VANACOF 00 times Medical DM) daily as Branch 10-18-200 needed mg/15 mL (cough). Liqd ondansetron 2021-09 Yes [id number] 4mg Take 1 [facility] 4 mg 2-21 tablet by ity of disintegrat 00:00: mouth [place] ing tablet 00 every 8 Medica l (eight) Branch hours as needed for Nausea and Vomiting (N/V). phenylephri 2021-09 Yes [id number] 10mL Take 10 mL [facility] ne-DM-guaif 2-21 by mouth 3 it y of enesin 00:00: (three) [place] (VANACOF 00 times Medical DM) daily as Branch 10-18-200 needed mg/15 mL (cough). Liqd ondansetron 2021-09 Yes [id number] 4mg Take 1 [facility] 4 mg 2-21 tablet by ity of disintegrat 00:00: mouth [place] ing tablet 00 every 8 Medica l (eight) Branch hours as needed for Nausea and Vomiting (N/V). phenylephri 2021-09 Yes [id number] 10mL Take 10 mL [facility] ne-DM-guaif 2-21 by mouth 3 it y of enesin 00:00: (three) [place] (VANACOF 00 times Medical DM) daily as Branch 10-18-200 needed mg/15 mL (cough). Liqd ondansetron 2021-09- No [id number] 4mg Take 1 [facility] 4 mg 2-21 03-06 tablet by ity of disintegrat 00:00: 00:[place] :00 every 8 Medica l (eight) Branch hours as needed for Nausea and Vomiting (N/V). phenylephri 2021-09- No [id number] 10mL Take 10 mL [facility] ne-DM-guaif 2-21 03-06 by mouth 3 i ty of enesin 00:00: 00:00 (three) [place] (VANACOF 00 :00 times Medical DM) daily as Branch 10-18-200 needed mg/15 mL (cough). Liqd ondansetron 2021-09- No [id number] 4mg Take 1 [facility] 4 mg 2-21 03-06 tablet by ity of disintegrat 00:00: 00:[place] 00 :00 every 8 Medica l (eight) Branch hours as needed for Nausea and Vomiting (N/V). phenylephri 2021-09- No [id number] 10mL Take 10 mL [facility] ne-DM-guaif 2-21 03-06 by mouth 3 i ty of enesin 00:00: 00:00 (three) [place] (VANACOF 00 :00 times Medical DM) daily as Branch 10-18-200 needed mg/15 mL (cough). Liqd azithromyci 2021-09- No [id number] 250mg Take 1 [facility] n 250 mg -11-18 tablet by ity o f tablet 00:00: 00:00 mouth in [place] 00 :00 the Medical morning. Branch Take 500 mg day 1, then 250 mg days 2 to 5. bromphenira 2021-09- No [id number] 5mL Take 5 mL [facility] mine-pseudo 11-16 by mouth 3 i ty of ephedrine-D 00:00: 00:00 (three) [place] (BROMFED 00 :00 times Medical DM) 2-30-10 daily as Bran ch mg/5 mL needed for syrup Congestion /Allergies or Cold symptoms. azithromyci 2021-09 No [id number] 250mg Take 1 [facility] n 250 mg 11-16 tablet by ity o f tablet 00:00: 00:00 mouth in [place] 00 :00 the Medical morning. Branch Take 500 mg day 1, then 250 mg days 2 to 5. bromphenira 2021-09- No [id number] 5mL Take 5 mL [facility] mine-pseudo 11-16 by mouth 3 i ty of ephedrine-D 00:00: 00:00 (three) [place] (BROMFED 00 :00 times Medical DM) 2-30-10 daily as Bran ch mg/5 mL needed for syrup Congestion /Allergies or Cold symptoms. azithromyci 2021-09 No [id number] 250mg Take 1 [facility] n 250 mg -15 09- tablet by ity o f tablet 00:00: 00:00 mouth in [place] 00 :00 the Medical morning. Branch Take 500 mg day 1, then 250 mg days 2 to 5. ondansetron 2021-09 No [id number] 4mg Take 1 [facility] 4 mg 2-21 - tablet by ity of disintegrat 00:00: 00:[place] 00 :00 every 8 Medica l (eight) Branch hours as needed for Nausea and Vomiting (N/V). azithromyci 2021-09- No [id number] 250mg Take 1 [facility] n 250 mg 2-21 12-21 tablet by ity o f tablet 00:00: 00:00 mouth in [place] 00 :00 the Medical morning. Branch Take 500 mg day 1, then 250 mg days 2 to 5. ondansetron 2021-09- No [id number] 4mg Take 1 [facility] 4 mg 2-21 12-21 tablet by ity of disintegrat 00:00: 00:[place] 00 :00 every 8 Medica l (eight) Branch hours as needed for Nausea and Vomiting (N/V). azithromyci 2021-09- No [id number] 250mg Take 1 [facility] n 250 mg 2-21 12-21 tablet by ity o f tablet 00:00: 00:00 mouth in [place] 00 :00 the Medical morning. Branch Take 500 mg day 1, then 250 mg days 2 to 5. ondansetron 2021-09- No [id number] 4mg Take 1 [facility] 4 mg 2-21 12-21 tablet by ity of disintegrat 00:00: 00:[place] 00 :00 every 8 Medica l (eight) Branch hours as needed for Nausea and Vomiting (N/V). terbinafine 2021-09 Yes [id number] Apply to [facility] HCL 1 % 2-16 area(s) 2 ity of cream 00:00: (two) [place] 00 times Medical daily. Branch terbinafine 2021-09 Yes [id number] Apply to [facility] HCL 1 % 2-16 area(s) 2 ity of cream 00:00: (two) [place] 00 times Medical daily. Branch terbinafine 2021-09 Yes [id number] Apply to [facility] HCL 1 % 2-16 area(s) 2 ity of cream 00:00: (two) [place] 00 times Medical daily. Branch terbinafine 2021-09 Yes [id number] Apply to [facility] HCL 1 % 2-16 area(s) 2 ity of cream 00:00: (two) [place] 00 times Medical daily. Branch terbinafine 2021-09 Yes [id number] Apply to [facility] HCL 1 % 2-16 area(s) 2 ity of cream 00:00: (two) [place] 00 times Medical daily. Branch terbinafine 2021-09 Yes [id number] Apply to [facility] HCL 1 % 2-16 area(s) 2 ity of cream 00:00: (two) [place] 00 times Medical daily. Branch terbinafine 2021-09 Yes [id number] Apply to [facility] HCL 1 % 2-16 area(s) 2 ity of cream 00:00: (two) [place] 00 times Medical daily. Branch terbinafine 2021-09 Yes [id number] Apply to [facility] HCL 1 % 2-16 area(s) 2 ity of cream 00:00: (two) [place] 00 times Medical daily. Branch terbinafine 2021-09 Yes [id number] Apply to [facility] HCL 1 % 2-16 area(s) 2 ity of cream 00:00: (two) [place] 00 times Medical daily. Branch terbinafine 2021-09 Yes [id number] Apply to [facility] HCL 1 % 2-16 area(s) 2 ity of cream 00:00: (two) [place] 00 times Medical daily. Branch terbinafine 2021-09 Yes [id number] Apply to [facility] HCL 1 % 2-16 area(s) 2 ity of cream 00:00: (two) [place] 00 times Medical daily. Branch terbinafine 2021-09 Yes [id number] Apply to [facility] HCL 1 % 2-16 area(s) 2 ity of cream 00:00: (two) [place] 00 times Medical daily. Branch terbinafine 2021-09 Yes [id number] Apply to [facility] HCL 1 % 2-16 area(s) 2 ity of cream 00:00: (two) [place] 00 times Medical daily. Branch terbinafine 2021-09 Yes [id number] Apply to [facility] HCL 1 % 2-16 area(s) 2 ity of cream 00:00: (two) [place] 00 times Medical daily. Branch terbinafine 2021- Yes [id number] Apply to [facility] HCL 1 % 2-16 area(s) 2 ity of cream 00:00: (two) [place] 00 times Medical daily. Branch terbinafine 2021- Yes [id number] Apply to [facility] HCL 1 % 2-16 area(s) 2 ity of cream 00:00: (two) [place] 00 times Medical daily. Branch terbinafine 2021-09 Yes [id number] Apply to [facility] HCL 1 % 2-16 area(s) 2 ity of cream 00:00: (two) [place] 00 times Medical daily. Branch terbinafine 2021-09 Yes [id number] Apply to [facility] HCL 1 % 2-16 area(s) 2 ity of cream 00:00: (two) [place] 00 times Medical daily. Branch terbinafine 2021-09 Yes [id number] Apply to [facility] HCL 1 % 2-16 area(s) 2 ity of cream 00:00: (two) [place] 00 times Medical daily. Branch terbinafine 2021-09 Yes [id number] Apply to [facility] HCL 1 % 2-16 area(s) 2 ity of cream 00:00: (two) [place] 00 times Medical daily. Branch terbinafine 2021-09 Yes [id number] Apply to [facility] HCL 1 % 2-16 area(s) 2 ity of cream 00:00: (two) [place] 00 times Medical daily. Branch terbinafine 2021-09 Yes [id number] Apply to [facility] HCL 1 % 2-16 area(s) 2 ity of cream 00:00: (two) [place] 00 times Medical daily. Branch terbinafine 2021-09 Yes [id number] Apply to [facility] HCL 1 % 2-16 area(s) 2 ity of cream 00:00: (two) [place] 00 times Medical daily. Branch terbinafine 2021-09 Yes [id number] Apply to [facility] HCL 1 % 2-16 area(s) 2 ity of cream 00:00: (two) [place] 00 times Medical daily. Branch terbinafine 2021-09 Yes [id number] Apply to [facility] HCL 1 % 2-16 area(s) 2 ity of cream 00:00: (two) [place] 00 times Medical daily. Branch terbinafine 2021-09 Yes [id number] Apply to [facility] HCL 1 % 2-16 area(s) 2 ity of cream 00:00: (two) [place] 00 times Medical daily. Branch terbinafine 2021-09 Yes [id number] Apply to [facility] HCL 1 % 2-16 area(s) 2 ity of cream 00:00: (two) [place] 00 times Medical daily. Branch terbinafine 2021-09 Yes [id number] Apply to [facility] HCL 1 % 2-16 area(s) 2 ity of cream 00:00: (two) [place] 00 times Medical daily. Branch terbinafine 2021-09 Yes [id number] Apply to [facility] HCL 1 % 2-16 area(s) 2 ity of cream 00:00: (two) [place] 00 times Medical daily. Branch terbinafine 2021-09 Yes [id number] Apply to [facility] HCL 1 % 2-16 area(s) 2 ity of cream 00:00: (two) [place] 00 times Medical daily. Branch terbinafine 2021-09 Yes [id number] Apply to [facility] HCL 1 % 2-16 area(s) 2 ity of cream 00:00: (two) [place] 00 times Medical daily. Branch terbinafine 2021-09 Yes [id number] Apply to [facility] HCL 1 % 2-16 area(s) 2 ity of cream 00:00: (two) [place] 00 times Medical daily. Branch terbinafine 2021-09 Yes [id number] Apply to [facility] HCL 1 % 2-16 area(s) 2 ity of cream 00:00: (two) [place] 00 times Medical daily. Branch terbinafine 2021-09 Yes [id number] Apply to [facility] HCL 1 % 2-16 area(s) 2 ity of cream 00:00: (two) [place] 00 times Medical daily. Branch terbinafine 2021-09 Yes [id number] Apply to [facility] HCL 1 % 2-16 area(s) 2 ity of cream 00:00: (two) [place] 00 times Medical daily. Branch terbinafine 2021-09 Yes [id number] Apply to [facility] HCL 1 % 2-16 area(s) 2 ity of cream 00:00: (two) [place] 00 times Medical daily. Branch terbinafine 2021-09 Yes [id number] Apply to [facility] HCL 1 % 2-16 area(s) 2 ity of cream 00:00: (two) [place] 00 times Medical daily. Branch terbinafine 2021-09 Yes [id number] Apply to [facility] HCL 1 % 2-16 area(s) 2 ity of cream 00:00: (two) [place] 00 times Medical daily. Branch terbinafine 2021-09- No [id number] Apply to [facility] HCL 1 % 2-16 -06 area(s) 2 ity of cream 00:00: 00:00 (two) [place] 00 :00 times Medical daily. Branch terbinafine 2021-09- No [id number] Apply to [facility] HCL 1 % 2-16 -06 area(s) 2 ity of cream 00:00: 00:00 (two) [place] 00 :00 times Medical daily. Branch Insulin 2021-09 Yes Use to [facility] [place], 1-16 inject ity of Disposable, 00:00: [facility] [place] (BD 00 daily. Medical ULTRAFINE Branch III MINI PEN) 31 gauge x 3/16" Ndle Insulin 2021-09 Yes Use to [facility] [place], 1-16 inject ity of Disposable, 00:00: [facility] [place] (BD 00 daily. Medical ULTRAFINE Branch III MINI PEN) 31 gauge x 3/16" Ndle Insulin 2021-09 Yes Use to [facility] [place], 1-16 inject ity of Disposable, 00:00: [facility] [place] (BD 00 daily. Medical ULTRAFINE Branch III MINI PEN) 31 gauge x 3/16" Ndle Insulin 2021-09 Yes Use to [facility] [place], 1-16 inject ity of Disposable, 00:00: [facility] [place] (BD 00 daily. Medical ULTRAFINE Branch III MINI PEN) 31 gauge x 3/16" Ndle Insulin 2021-09- No Use to [facility] [place], 1-16 12-16 inject ity of Disposable, 00:00: 00:00 [facility] [place] (BD 00 :00 daily. Medical ULTRAFINE Branch III MINI PEN) 31 gauge x 3/16" Ndle Insulin 2021-09- No Use to [facility] [place], 1-16 12-16 inject ity of Disposable, 00:00: 00:00 [facility] [place] (BD 00 :00 daily. Medical ULTRAFINE Branch III MINI PEN) 31 gauge x 3/16" Ndle Insulin 2021-09- No Use to [facility] [place], 1-16 12-16 inject ity of Disposable, 00:00: 00:00 [facility] [place] (BD 00 :00 daily. Medical ULTRAFINE Branch III MINI PEN) 31 gauge x 3/16" Ndle Insulin 2021-09- No Use to [facility] [place], 1-16 12-16 inject ity of Disposable, 00:00: 00:00 [facility] [place] (BD 00 :00 daily. Medical ULTRAFINE Branch III MINI PEN) 31 gauge x 3/16" Ndle liraglutide 2021-09 Yes [id number] 3mg inject 3 [facility] , weight 1-15 [...] to see how to use the [facility] https://[employer]/about- saxenda/ho w-to-use-t he-pen.htm l If experienci ng severe abdominal pain along with nausea and/or vomiting please call clinic [facility] or or go to Emergency room if any of these symptoms occur. This could be sign of Pancreatit is. liraglutide 2021-09 Yes [id number] 3mg inject 3 [facility] , weight 1-15 [...] to see how to use the [facility] https://[employer]/about- saxenda/ho w-to-use-t he-pen.htm l If experienci ng severe abdominal pain along with nausea and/or vomiting please call clinic [facility] or or go to Emergency room if any of these symptoms occur. This could be sign of Pancreatit is. liraglutide 2021-09 Yes [id number] 3mg inject 3 [facility] , weight 1-15 [...] to see how to use the [facility] https://[employer]/about- [place]/ho w-to-use-t he-pen.htm l If experienci ng severe abdominal pain along with nausea and/or vomiting please call clinic [facility] or or go to Emergency room if any of these symptoms occur. This could be sign of Pancreatit is. liraglutide 2021-09 Yes [id number] 3mg inject 3 [facility] , weight 1-15 [...] to see how to use the [facility] https://[employer]/about- saxenda/ho w-to-use-t he-pen.htm l If experienci ng severe abdominal pain along with nausea and/or vomiting please call clinic [facility] or or go to Emergency room if any of these symptoms occur. This could be sign of Pancreatit is. liraglutide 2021-09 Yes [id number] 3mg inject 3 [facility] , weight 1-15 [...] to see how to use the [facility] https://[employer]/about- [employer]/ho w-to-use-t he-pen.htm l If experienci ng severe abdominal pain along with nausea and/or vomiting please call clinic [facility] or or go to Emergency room if any of these symptoms occur. This could be sign of Pancreatit is. liraglutide 2021-09 Yes [id number] 3mg inject 3 [facility] , weight 1-15 [...] to see how to use the [facility] https://[employer]/about- saxenda/ho w-to-use-t he-pen.htm l If experienci ng severe abdominal pain along with nausea and/or vomiting please call clinic [facility] or or go to Emergency room if any of these symptoms occur. This could be sign of Pancreatit is. liraglutide 2021-09 Yes [id number] 3mg inject 3 [facility] , weight 1-15 [...] to see how to use the [facility] https://[employer]/about- saxenda/ho w-to-use-t he-pen.htm l If experienci ng severe abdominal pain along with nausea and/or vomiting please call clinic [facility] or or go to Emergency room if any of these symptoms occur. This could be sign of Pancreatit is. liraglutide 2021-09 Yes [id number] 3mg inject 3 [facility] , weight 1-15 [...] to see how to use the [facility] https://[employer]/about- saxenda/ho w-to-use-t he-pen.htm l If experienci ng severe abdominal pain along with nausea and/or vomiting please call clinic [facility] or or go to Emergency room if any of these symptoms occur. This could be sign of Pancreatit is. liraglutide 2021-09 Yes [id number] 3mg inject 3 [facility] , weight 1-15 [...] to see how to use the [facility] https://[employer]/about- saxenda/ho w-to-use-t he-pen.htm l If experienci ng severe abdominal pain along with nausea and/or vomiting please call clinic [facility] or or go to Emergency room if any of these symptoms occur. This could be sign of Pancreatit is. liraglutide 2021-09 Yes [id number] 3mg inject 3 [facility] , weight 1-15 [...] to see how to use the [facility] https://[employer]/about- saxenda/ho w-to-use-t he-pen.htm l If experienci ng severe abdominal pain along with nausea and/or vomiting please call clinic [facility] or or go to Emergency room if any of these symptoms occur. This could be sign of Pancreatit is. liraglutide 2021-09 Yes [id number] 3mg inject 3 [facility] , weight 1-15 [...] to see how to use the [facility] https://[employer]/about- saxenda/ho w-to-use-t he-pen.htm l If experienci ng severe abdominal pain along with nausea and/or vomiting please call clinic [facility] or or go to Emergency room if any of these symptoms occur. This could be sign of Pancreatit is. liraglutide 2021-09 Yes [id number] 3mg inject 3 [facility] , weight 1-15 [...] to see how to use the [facility] https://[employer]/about- saxenda/ho w-to-use-t he-pen.htm l If experienci ng severe abdominal pain along with nausea and/or vomiting please call clinic [facility] or or go to Emergency room if any of these symptoms occur. This could be sign of Pancreatit is. liraglutide 2021-09 Yes [id number] 3mg inject 3 [facility] , weight 1-15 [...] to see how to use the [facility] https://[employer]/about- saxenda/ho w-to-use-t he-pen.htm l If experienci ng severe abdominal pain along with nausea and/or vomiting please call clinic [facility] or or go to Emergency room if any of these symptoms occur. This could be sign of Pancreatit is. liraglutide 2021-09 Yes [id number] 3mg inject 3 [facility] , weight 1-15 [...] to see how to use the [facility] https://[employer]/about- saxenda/ho w-to-use-t he-pen.htm l If experienci ng severe abdominal pain along with nausea and/or vomiting please call clinic [facility] or or go to Emergency room if any of these symptoms occur. This could be sign of Pancreatit is. liraglutide 2021-09 Yes [id number] 3mg inject 3 [facility] , weight 1-15 [...] to see how to use the [facility] https://[employer]/about- saxenda/ho w-to-use-t he-pen.htm l If experienci ng severe abdominal pain along with nausea and/or vomiting please call clinic [facility] or or go to Emergency room if any of these symptoms occur. This could be sign of Pancreatit is. liraglutide 2021-09 Yes [id number] 3mg inject 3 [facility] , weight 1-15 [...] to see how to use the [facility] https://[employer]/about- saxenda/ho w-to-use-t he-pen.htm l If experienci ng severe abdominal pain along with nausea and/or vomiting please call clinic [facility] or or go to Emergency room if any of these symptoms occur. This could be sign of Pancreatit is. liraglutide 2021-09 Yes [id number] 3mg inject 3 [facility] , weight 1-15 [...] to see how to use the [facility] https://[employer]/about- saxenda/ho w-to-use-t he-pen.htm l If experienci ng severe abdominal pain along with nausea and/or vomiting please call clinic [facility] or or go to Emergency room if any of these symptoms occur. This could be sign of Pancreatit is. liraglutide 2021-09 Yes [id number] 3mg inject 3 [facility] , weight 1-15 [...] to see how to use the [facility] https://[employer]/about- saxenda/ho w-to-use-t he-pen.htm l If experienci ng severe abdominal pain along with nausea and/or vomiting please call clinic [facility] or or go to Emergency room if any of these symptoms occur. This could be sign of Pancreatit is. liraglutide 2021-09 Yes [id number] 3mg inject 3 [facility] , weight 1-15 [...] to see how to use the [facility] https://[employer]/about- saxenda/ho w-to-use-t he-pen.htm l If experienci ng severe abdominal pain along with nausea and/or vomiting please call clinic [facility] or or go to Emergency room if any of these symptoms occur. This could be sign of Pancreatit is. liraglutide 2021-09 Yes [id number] 3mg inject 3 [facility] , weight 1-15 [...] to see how to use the [facility] https://[employer]/about- saxenda/ho w-to-use-t he-pen.htm l If experienci ng severe abdominal pain along with nausea and/or vomiting please call clinic [facility] or or go to Emergency room if any of these symptoms occur. This could be sign of Pancreatit is. liraglutide 2021-09 Yes [id number] 3mg inject 3 [facility] , weight 1-15 [...] to see how to use the [facility] https://[employer]/about- saxenda/ho w-to-use-t he-pen.htm l If experienci ng severe abdominal pain along with nausea and/or vomiting please call clinic [facility] or or go to Emergency room if any of these symptoms occur. This could be sign of Pancreatit is. liraglutide 2021-09 Yes [id number] 3mg inject 3 [facility] , weight 1-15 [...] to see how to use the [facility] https://[employer]/about- saxenda/ho w-to-use-t he-pen.htm l If experienci ng severe abdominal pain along with nausea and/or vomiting please call clinic [facility] or or go to Emergency room if any of these symptoms occur. This could be sign of Pancreatit is. liraglutide 2021-09 Yes [id number] 3mg inject 3 [facility] , weight 1-15 [...] to see how to use the [facility] https://[employer]/about- saxenda/ho w-to-use-t he-pen.htm l If experienci ng severe abdominal pain along with nausea and/or vomiting please call clinic [facility] or or go to Emergency room if any of these symptoms occur. This could be sign of Pancreatit is. liraglutide 2021-09 Yes [id number] 3mg inject 3 [facility] , weight 1-15 [...] to see how to use the [facility] https://[employer]/about- saxenda/ho w-to-use-t he-pen.htm l If experienci ng severe abdominal pain along with nausea and/or vomiting please call clinic [facility] or or go to Emergency room if any of these symptoms occur. This could be sign of Pancreatit is. liraglutide 2021-09 Yes [id number] 3mg inject 3 [facility] , weight 1-15 [...] to see how to use the [facility] https://[employer]/about- saxenda/ho w-to-use-t he-pen.htm l If experienci ng severe abdominal pain along with nausea and/or vomiting please call clinic [facility] or or go to Emergency room if any of these symptoms occur. This could be sign of Pancreatit is. liraglutide 2021-09 Yes [id number] 3mg inject 3 [facility] , weight 1-15 [...] to see how to use the [facility] https://[employer]/about- saxenda/tracy w-to-use-t he-pen.htm l If experienci ng severe abdominal pain along with nausea and/or vomiting please call clinic [facility] or or go to Emergency room if any of these symptoms occur. This could be sign of Pancreatit is. liraglutide 2021-09 Yes [id number] 3mg inject 3 [facility] , weight 1-15 [...] to see how to use the [facility] https://[employer]/about- saxenda/tracy w-to-use-t he-pen.htm l If experienci ng severe abdominal pain along with nausea and/or vomiting please call clinic [facility] or or go to Emergency room if any of these symptoms occur. This could be sign of Pancreatit is. liraglutide 2021-09 Yes [id number] 3mg inject 3 [facility] , weight 1-15 [...] to see how to use the [facility] https://[employer]/about- saxenda/tracy w-to-use-t he-pen.htm l If experienci ng severe abdominal pain along with nausea and/or vomiting please call clinic [facility] or or go to Emergency room if any of these symptoms occur. This could be sign of Pancreatit is. liraglutide 2021-09 Yes [id number] 3mg inject 3 [facility] , weight 1-15 [...] to see how to use the [facility] https://[employer]/about- saxenda/tracy w-to-use-t he-pen.htm l If experienci ng severe abdominal pain along with nausea and/or vomiting please call clinic [facility] or or go to Emergency room if any of these symptoms occur. This could be sign of Pancreatit is. liraglutide 2021-09 Yes [id number] 3mg inject 3 [facility] , weight 1-15 [...] to see how to use the [facility] https://[employer]/about- saxenda/ho w-to-use-t he-pen.htm l If experienci ng severe abdominal pain along with nausea and/or vomiting please call clinic [facility] or or go to Emergency room if any of these symptoms occur. This could be sign of Pancreatit is. liraglutide 2021-09 Yes [id number] 3mg inject 3 [facility] , weight 1-15 [...] to see how to use the [facility] https://[employer]/about- saxenda/ho w-to-use-t he-pen.htm l If experienci ng severe abdominal pain along with nausea and/or vomiting please call clinic [facility] or or go to Emergency room if any of these symptoms occur. This could be sign of Pancreatit is. liraglutide 2021-09 Yes [id number] 3mg inject 3 [facility] , weight 1-15 [...] to see how to use the [facility] https://[employer]/about- [employer]/ho w-to-use-t he-pen.htm l If experienci ng severe abdominal pain along with nausea and/or vomiting please call clinic [facility] or or go to Emergency room if any of these symptoms occur. This could be sign of Pancreatit is. liraglutide 2021-09 Yes [id number] 3mg inject 3 [facility] , weight 1-15 [...] to see how to use the [facility] https://[employer]/about- saxenda/ho w-to-use-t he-pen.htm l If experienci ng severe abdominal pain along with nausea and/or vomiting please call clinic [facility] or or go to Emergency room if any of these symptoms occur. This could be sign of Pancreatit is. liraglutide 2021-09 Yes [id number] 3mg inject 3 [facility] , weight 1-15 [...] to see how to use the [facility] https://[employer]/about- mLED/ho w-to-use-t he-pen.htm l If experienci ng severe abdominal pain along with nausea and/or vomiting please call clinic [facility] or or go to Emergency room if any of these symptoms occur. This could be sign of Pancreatit is. liraglutide 2021-09 Yes [id number] 3mg inject 3 [facility] , weight 1-15 [...] to see how to use the [facility] https://[employer]/about- saxenda/ho w-to-use-t he-pen.htm l If experienci ng severe abdominal pain along with nausea and/or vomiting please call clinic [facility] or or go to Emergency room if any of these symptoms occur. This could be sign of Pancreatit is. liraglutide 2021-09 Yes [id number] 3mg inject 3 [facility] , weight 1-15 [...] to see how to use the [facility] https://[employer]/about- saxenda/ho w-to-use-t he-pen.htm l If experienci ng severe abdominal pain along with nausea and/or vomiting please call clinic [facility] or or go to Emergency room if any of these symptoms occur. This could be sign of Pancreatit is. liraglutide 2021-09 Yes [id number] 3mg inject 3 [facility] , weight 1-15 [...] to see how to use the [facility] https://[employer]/about- saxenda/ho w-to-use-t he-pen.htm l If experienci ng severe abdominal pain along with nausea and/or vomiting please call [facility] or or go to Emergency room if any of these symptoms occur. This could be sign of Pancreatit is. liraglutide 2021-09 Yes [id number] 3mg inject 3 [employer] , weight 1-15 [...] to see how to use the Saxenda https://[employer]/about- saxenda/ho w-to-use-t he-pen.htm l If experienci ng severe abdominal pain along with nausea and/or vomiting please call clinic [facility] or or go to Emergency room if any of these symptoms occur. This could be sign of Pancreatit is. liraglutide 2021-09 Yes [id number] 3mg inject 3 [employer] , weight 1-15 [...] to see how to use the Saxenda https://[employer]/about- saxenda/ho w-to-use-t he-pen.htm l If experienci ng severe abdominal pain along with nausea and/or vomiting please call [facility] or or go to Emergency room if any of these symptoms occur. This could be sign of Pancreatit is. liraglutide 2021-09 Yes [id number] 3mg inject 3 [employer] , weight 1-15 [...] to see how to use the Saxenda https://[employer]/about- saxenda/ho w-to-use-t he-pen.htm l If experienci ng severe abdominal pain along with nausea and/or vomiting please call [facility] or or go to Emergency room if any of these symptoms occur. This could be sign of Pancreatit is. liraglutide 2021-09 Yes [id number] 3mg inject 3 [employer] , weight 1-15 [...] to see how to use the Saxenda https://[employer]/about- saxenda/ho w-to-use-t he-pen.htm l If experienci ng severe abdominal pain along with nausea and/or vomiting please call [facility] or or go to Emergency room if any of these symptoms occur. This could be sign of Pancreatit is. liraglutide 2021-09 Yes [id number] 3mg inject 3 [employer] , weight 1-15 [...] to see how to use the Saxenda https://[employer]/about- saxenda/ho w-to-use-t he-pen.htm l If experienci ng severe abdominal pain along with nausea and/or vomiting please call [facility] or or go to Emergency room if any of these symptoms occur. This could be sign of Pancreatit is. liraglutide 2021-09 Yes [id number] 3mg inject 3 [employer] , weight 1-15 [...] to see how to use the Saxenda https://[employer]/about- saxenda/ho w-to-use-t he-pen.htm l If experienci ng severe abdominal pain along with nausea and/or vomiting please call [facility] or or go to Emergency room if any of these symptoms occur. This could be sign of Pancreatit is. liraglutide 2021-09 Yes [id number] 3mg inject 3 [employer] , weight 1-15 [...] to see how to use the Saxenda https://[employer]/about- saxenda/ho w-to-use-t he-pen.htm l If experienci ng severe abdominal pain along with nausea and/or vomiting please call [facility] or or go to Emergency room if any of these symptoms occur. This could be sign of Pancreatit is. liraglutide 2021-09 Yes [id number] 3mg inject 3 [employer] , weight 1-15 [...] to see how to use the Saxenda https://[employer]/about- saxenda/ho w-to-use-t he-pen.htm l If experienci ng severe abdominal pain along with nausea and/or vomiting please call [facility] or or go to Emergency room if any of these symptoms occur. This could be sign of Pancreatit is. liraglutide 2021-09 Yes [id number] 3mg inject 3 [employer] , weight 1-15 [...] to see how to use the Saxenda https://[employer]/about- saxenda/ho w-to-use-t he-pen.htm l If experienci ng severe abdominal pain along with nausea and/or vomiting please call [facility] or or go to Emergency room if any of these symptoms occur. This could be sign of Pancreatit is. liraglutide 2021-09 Yes [id number] 3mg inject 3 [employer] , weight 1-15 [...] to see how to use the Saxenda https://[employer]/about- saxenda/ho w-to-use-t he-pen.htm l If experienci ng severe abdominal pain along with nausea and/or vomiting please call [facility] or or go to Emergency room if any of these symptoms occur. This could be sign of Pancreatit is. liraglutide 2021-09 Yes [id number] 3mg inject 3 [employer] , weight 1-15 [...] to see how to use the Saxenda https://[employer]/about- saxenda/ho w-to-use-t he-pen.htm l If experienci ng severe abdominal pain along with nausea and/or vomiting please call [facility] or or go to Emergency room if any of these symptoms occur. This could be sign of Pancreatit is. liraglutide 2021-09 Yes [id number] 3mg inject 3 [employer] , weight 1-15 [...] to see how to use the Saxenda https://[employer]/about- saxenda/ho w-to-use-t he-pen.htm l If experienci ng severe abdominal pain along with nausea and/or vomiting please call [facility] or or go to Emergency room if any of these symptoms occur. This could be sign of Pancreatit is. liraglutide 2021-09 Yes [id number] 3mg inject 3 [employer] , weight 1-15 [...] to see how to use the Saxenda https://[employer]/about- saxenda/ho w-to-use-t he-pen.htm l If experienci ng severe abdominal pain along with nausea and/or vomiting please call [facility] or or go to Emergency room if any of these symptoms occur. This could be sign of Pancreatit is. liraglutide 2021-09 Yes [id number] 3mg inject 3 [employer] , weight 1-15 [...] to see how to use the Saxenda https://[employer]/about- saxenda/ho w-to-use-t he-pen.htm l If experienci ng severe abdominal pain along with nausea and/or vomiting please call [facility] or or go to Emergency room if any of these symptoms occur. This could be sign of Pancreatit is. liraglutide 2021-09 Yes [id number] 3mg inject 3 [employer] , weight 1-15 [...] to see how to use the Saxenda https://[employer]/about- saxenda/ho w-to-use-t he-pen.htm l If experienci ng severe abdominal pain along with nausea and/or vomiting please call [facility] or or go to Emergency room if any of these symptoms occur. This could be sign of Pancreatit is. liraglutide 2021-09 Yes [id number] 3mg inject 3 [employer] , weight 1-15 [...] to see how to use the Saxenda https://[employer]/about- saxenda/tracy w-to-use-t he-pen.htm l If experienci ng severe abdominal pain along with nausea and/or vomiting please call [facility] or or go to Emergency room if any of these symptoms occur. This could be sign of Pancreatit is. liraglutide 2021-09 Yes [id number] 3mg inject 3 [employer] , weight 1-15 [...] to see how to use the Saxenda https://[employer]/about- saxenda/tracy w-to-use-t he-pen.htm l If experienci ng severe abdominal pain along with nausea and/or vomiting please call [facility] or or go to Emergency room if any of these symptoms occur. This could be sign of Pancreatit is. liraglutide 2021-09 Yes [id number] 3mg inject 3 [employer] , weight 1-15 [...] to see how to use the Saxenda https://[employer]/about- saxenda/tracy w-to-use-t he-pen.htm l If experienci ng severe abdominal pain along with nausea and/or vomiting please call [facility] or or go to Emergency room if any of these symptoms occur. This could be sign of Pancreatit is. liraglutide 2021-09 Yes [id number] 3mg inject 3 [employer] , weight 1-15 [...] to see how to use the Saxenda https://[employer]/about- saxenda/tracy w-to-use-t he-pen.htm l If experienci ng severe abdominal pain along with nausea and/or vomiting please call [facility] or or go to Emergency room if any of these symptoms occur. This could be sign of Pancreatit is. liraglutide 2021-09 Yes [id number] 3mg inject 3 [employer] , weight 1-15 [...] to see how to use the Saxenda https://[employer]/about- saxenda/ho w-to-use-t he-pen.htm l If experienci ng severe abdominal pain along with nausea and/or vomiting please call [facility] or or go to Emergency room if any of these symptoms occur. This could be sign of Pancreatit is. liraglutide 2021-09 Yes [id number] 3mg inject 3 [employer] , weight 1-15 [...] to see how to use the Saxenda https://[employer]/about- saxenda/ho w-to-use-t he-pen.htm l If experienci ng severe abdominal pain along with nausea and/or vomiting please call [facility] or or go to Emergency room if any of these symptoms occur. This could be sign of Pancreatit is. liraglutide 2021-09 Yes [id number] 3mg inject 3 [employer] , weight 1-15 [...] to see how to use the Saxenda https://[employer]/about- [employer]/ho w-to-use-t he-pen.htm l If experienci ng severe abdominal pain along with nausea and/or vomiting please call [facility] or or go to Emergency room if any of these symptoms occur. This could be sign of Pancreatit is. liraglutide 2021-09 Yes [id number] 3mg inject 3 [employer] , weight 1-15 [...] to see how to use the Saxenda https://[employer]/about- saxenda/ho w-to-use-t he-pen.htm l If experienci ng severe abdominal pain along with nausea and/or vomiting please call [facility] or or go to Emergency room if any of these symptoms occur. This could be sign of Pancreatit is. liraglutide 2021-09 Yes [id number] 3mg inject 3 [employer] , weight 1-15 [...] to see how to use the Saxenda https://[employer]/about- [employer]/ho w-to-use-t he-pen.htm l If experienci ng severe abdominal pain along with nausea and/or vomiting please call [facility] or or go to Emergency room if any of these symptoms occur. This could be sign of Pancreatit is. liraglutide 2021-09 Yes [id number] 3mg inject 3 [employer] , weight 1-15 [...] to see how to use the Saxenda https://[employer]/about- saxenda/ho w-to-use-t he-pen.htm l If experienci ng severe abdominal pain along with nausea and/or vomiting please call [facility] or or go to Emergency room if any of these symptoms occur. This could be sign of Pancreatit is. liraglutide 2021-09 Yes [id number] 3mg inject 3 [employer] , weight 1-15 [...] to see how to use the Saxenda https://[employer]/about- saxenda/ho w-to-use-t he-pen.htm l If experienci ng severe abdominal pain along with nausea and/or vomiting please call [facility] or or go to Emergency room if any of these symptoms occur. This could be sign of Pancreatit is. liraglutide 2021-09 Yes [id number] 3mg inject 3 [employer] , weight 1-15 [...] to see how to use the Saxenda https://[employer]/about- saxenda/ho w-to-use-t he-pen.htm l If experienci ng severe abdominal pain along with nausea and/or vomiting please call [facility] or or go to Emergency room if any of these symptoms occur. This could be sign of Pancreatit is. liraglutide 2021-09 Yes [id number] 3mg inject 3 [employer] , weight 1-15 [...] to see how to use the Saxenda https://[employer]/about- saxenda/ho w-to-use-t he-pen.htm l If experienci ng severe abdominal pain along with nausea and/or vomiting please call [facility] or or go to Emergency room if any of these symptoms occur. This could be sign of Pancreatit is. liraglutide 2021-09 Yes [id number] 3mg inject 3 [employer] , weight 1-15 [...] to see how to use the Saxenda https://[employer]/about- saxenda/ho w-to-use-t he-pen.htm l If experienci ng severe abdominal pain along with nausea and/or vomiting please call [facility] or or go to Emergency room if any of these symptoms occur. This could be sign of Pancreatit is. liraglutide 2021-09 Yes [id number] 3mg inject 3 [employer] , weight 1-15 [...] to see how to use the Saxenda https://[employer]/about- saxenda/ho w-to-use-t he-pen.htm l If experienci ng severe abdominal pain along with nausea and/or vomiting please call clinic [facility] or or go to Emergency room if any of these symptoms occur. This could be sign of Pancreatit is. liraglutide 2021-09 Yes [id number] 3mg inject 3 [employer] , weight 1-15 [...] to see how to use the Saxenda https://[employer]/about- saxenda/ho w-to-use-t he-pen.htm l If experienci ng severe abdominal pain along with nausea and/or vomiting please call [facility] or or go to Emergency room if any of these symptoms occur. This could be sign of Pancreatit is. liraglutide 2021-09 Yes [id number] 3mg inject 3 [employer] , weight 1-15 [...] to see how to use the Saxenda https://[employer]/about- saxenda/ho w-to-use-t he-pen.htm l If experienci ng severe abdominal pain along with nausea and/or vomiting please call [facility] or or go to Emergency room if any of these symptoms occur. This could be sign of Pancreatit is. liraglutide 2021-09 Yes [id number] 3mg inject 3 [employer] , weight 1-15 [...] to see how to use the Saxenda https://[employer]/about- saxenda/ho w-to-use-t he-pen.htm l If experienci ng severe abdominal pain along with nausea and/or vomiting please call [facility] or or go to Emergency room if any of these symptoms occur. This could be sign of Pancreatit is. liraglutide 2021-09 Yes [id number] 3mg inject 3 [employer] , weight 1-15 [...] to see how to use the Saxenda https://[employer]/about- saxenda/ho w-to-use-t he-pen.htm l If experienci ng severe abdominal pain along with nausea and/or vomiting please call [facility] or or go to Emergency room if any of these symptoms occur. This could be sign of Pancreatit is. liraglutide 2021-09 Yes [id number] 3mg inject 3 [employer] , weight 1-15 [...] to see how to use the Saxenda https://[employer]/about- saxenda/ho w-to-use-t he-pen.htm l If experienci ng severe abdominal pain along with nausea and/or vomiting please call [facility] or or go to Emergency room if any of these symptoms occur. This could be sign of Pancreatit is. liraglutide 2021-09 Yes [id number] 3mg inject 3 [employer] , weight 1-15 [...] to see how to use the Saxenda https://[employer]/about- saxenda/ho w-to-use-t he-pen.htm l If experienci ng severe abdominal pain along with nausea and/or vomiting please call [facility] or or go to Emergency room if any of these symptoms occur. This could be sign of Pancreatit is. liraglutide 2021-09 Yes [id number] 3mg inject 3 [employer] , weight 1-15 [...] to see how to use the Saxenda https://[employer]/about- saxenda/ho w-to-use-t he-pen.htm l If experienci ng severe abdominal pain along with nausea and/or vomiting please call [facility] or or go to Emergency room if any of these symptoms occur. This could be sign of Pancreatit is. liraglutide 2021-09 Yes [id number] 3mg inject 3 [employer] , weight 1-15 [...] to see how to use the Saxenda https://[employer]/about- saxenda/ho w-to-use-t he-pen.htm l If experienci ng severe abdominal pain along with nausea and/or vomiting please call [facility] or or go to Emergency room if any of these symptoms occur. This could be sign of Pancreatit is. liraglutide 2021-09 Yes [id number] 3mg inject 3 [employer] , weight 1-15 [...] to see how to use the Saxenda https://[employer]/about- [employer]/ho w-to-use-t he-pen.htm l If experienci ng severe abdominal pain along with nausea and/or vomiting please call [facility] or or go to Emergency room if any of these symptoms occur. This could be sign of Pancreatit is. liraglutide 2021-09 Yes [id number] 3mg inject 3 [employer] , weight 1-15 [...] to see how to use the Saxenda https://[employer]/about- saxenda/ho w-to-use-t he-pen.htm l If experienci ng severe abdominal pain along with nausea and/or vomiting please call [facility] or or go to Emergency room if any of these symptoms occur. This could be sign of Pancreatit is. liraglutide 2021-09 Yes [id number] 3mg inject 3 [employer] , weight 1-15 [...] to see how to use the Saxenda https://[employer]/about- saxenda/ho w-to-use-t he-pen.htm l If experienci ng severe abdominal pain along with nausea and/or vomiting please call [facility] or or go to Emergency room if any of these symptoms occur. This could be sign of Pancreatit is. liraglutide 2021-09 Yes [id number] 3mg inject 3 [employer] , weight 1-15 [...] to see how to use the Saxenda https://[employer]/about- saxenda/ho w-to-use-t he-pen.htm l If experienci ng severe abdominal pain along with nausea and/or vomiting please call [facility] or or go to Emergency room if any of these symptoms occur. This could be sign of Pancreatit is. liraglutide 2021-09 Yes [id number] 3mg inject 3 [employer] , weight 1-15 [...] to see how to use the Saxenda https://[employer]/about- saxenda/ho w-to-use-t he-pen.htm l If experienci ng severe abdominal pain along with nausea and/or vomiting please call [facility] or or go to Emergency room if any of these symptoms occur. This could be sign of Pancreatit is. liraglutide 2021-09 Yes [id number] 3mg inject 3 [employer] , weight 1-15 [...] to see how to use the Saxenda https://[employer]/about- saxenda/ho w-to-use-t he-pen.htm l If experienci ng severe abdominal pain along with nausea and/or vomiting please call [facility] or or go to Emergency room if any of these symptoms occur. This could be sign of Pancreatit is. liraglutide 2021-09 Yes [id number] 3mg inject 3 [employer] , weight 1-15 [...] to see how to use the Saxenda https://[employer]/about- saxenda/ho w-to-use-t he-pen.htm l If experienci ng severe abdominal pain along with nausea and/or vomiting please call [facility] or or go to Emergency room if any of these symptoms occur. This could be sign of Pancreatit is. liraglutide 2021-09 Yes [id number] 3mg inject 3 [employer] , weight 1-15 [...] to see how to use the Saxenda https://[employer]/about- saxenda/ho w-to-use-t he-pen.htm l If experienci ng severe abdominal pain along with nausea and/or vomiting please call [facility] or or go to Emergency room if any of these symptoms occur. This could be sign of Pancreatit is. liraglutide 2021-09 Yes [id number] 3mg inject 3 [employer] , weight 1-15 [...] to see how to use the Saxenda https://[employer]/about- saxenda/ho w-to-use-t he-pen.htm l If experienci ng severe abdominal pain along with nausea and/or vomiting please call [facility] or or go to Emergency room if any of these symptoms occur. This could be sign of Pancreatit is. liraglutide 2021-09 Yes [id number] 3mg inject 3 [employer] , weight 1-15 [...] to see how to use the Saxenda https://[employer]/about- saxenda/ho w-to-use-t he-pen.htm l If experienci ng severe abdominal pain along with nausea and/or vomiting please call [facility] or or go to Emergency room if any of these symptoms occur. This could be sign of Pancreatit is. liraglutide 2021-09 Yes [id number] 3mg inject 3 [employer] , weight 1-15 [...] to see how to use the Saxenda [email or web address]://ww [email or web address]about- saxenda/ho w-to-use-t he-pen.htm l If experienci ng severe abdominal pain along with nausea and/or vomiting please call [facility] or or go to Emergency room if any of these symptoms occur. This could be sign of Pancreatit is. liraglutide 2021-09 Yes [id number] 3mg inject 3 [employer] , weight 1-15 [...] to see how to use the Saxenda https://[employer]/about- saxenda/ho w-to-use-t he-pen.htm l If experienci ng severe abdominal pain along with nausea and/or vomiting please call [facility] or or go to Emergency room if any of these symptoms occur. This could be sign of Pancreatit is. liraglutide 2021-09 Yes [id number] 3mg inject 3 [employer] , weight 1-15 [...] to see how to use the [employer] https://[employer]/about- saxenda/ho w-to-use-t he-pen.htm l If experienci ng severe abdominal pain along with nausea and/or vomiting please call [facility] or or go to Emergency room if any of these symptoms occur. This could be sign of Pancreatit is. liraglutide 2021-09 Yes [id number] 3mg inject 3 [employer] , weight 1-15 [...] to see how to use the [employer] https://[employer]/about- saxenda/ho w-to-use-t he-pen.htm l If experienci ng severe abdominal pain along with nausea and/or vomiting please call [facility] or or go to Emergency room if any of these symptoms occur. This could be sign of Pancreatit is. liraglutide 2021-09 Yes [id number] 3mg inject 3 [employer] , weight 1-15 [...] to see how to use the [employer]enda https://[employer]/about- saxenda/ho w-to-use-t he-pen.htm l If experienci ng severe abdominal pain along with nausea and/or vomiting please call [facility] or or go to Emergency room if any of these symptoms occur. This could be sign of Pancreatit is. liraglutide 2021-09 Yes [id number] 3mg inject 3 [employer] , weight 1-15 [...] to see how to use the [employer] https://[employer]/about- saxenda/ho w-to-use-t he-pen.htm l If experienci ng severe abdominal pain along with nausea and/or vomiting please call [facility] or or go to Emergency room if any of these symptoms occur. This could be sign of Pancreatit is. liraglutide 2021-09 Yes [id number] 3mg inject 3 [employer] , weight 1-15 [...] to see how to use the [employer]enda https://[employer]/about- saxenda/ho w-to-use-t he-pen.htm l If experienci ng severe abdominal pain along with nausea and/or vomiting please call [facility] or or go to Emergency room if any of these symptoms occur. This could be sign of Pancreatit is. liraglutide 2021-09 Yes [id number] 3mg inject 3 [employer] , weight 1-15 [...] to see how to use the Saxenda https://[employer]/about- saxenda/ho w-to-use-t he-pen.htm l If experienci ng severe abdominal pain along with nausea and/or vomiting please call [facility] or or go to Emergency room if any of these symptoms occur. This could be sign of Pancreatit is. liraglutide 2021-09 Yes [id number] 3mg inject 3 [employer] , weight 1-15 [...] to see how to use the [employer] https://[employer]/about- saxenda/ho w-to-use-t he-pen.htm l If experienci ng severe abdominal pain along with nausea and/or vomiting please call [facility] or or go to Emergency room if any of these symptoms occur. This could be sign of Pancreatit is. liraglutide 2021-09 Yes [id number] 3mg inject 3 [employer] , weight 1-15 [...] to see how to use the [employer] https://[employer]/about- saxenda/ho w-to-use-t he-pen.htm l If experienci ng severe abdominal pain along with nausea and/or vomiting please call [facility] or or go to Emergency room if any of these symptoms occur. This could be sign of Pancreatit is. liraglutide 2021-09 Yes [id number] 3mg inject 3 [employer] , weight 1-15 [...] to see how to use the [employer] https://[employer]/about- saxenda/ho w-to-use-t he-pen.htm l If experienci ng severe abdominal pain along with nausea and/or vomiting please call [facility] or or go to Emergency room if any of these symptoms occur. This could be sign of Pancreatit is. liraglutide 2021-09 Yes [id number] 3mg inject 3 [employer] , weight 1-15 [...] to see how to use the [employer] https://[employer]/about- saxenda/ho w-to-use-t he-pen.htm l If experienci ng severe abdominal pain along with nausea and/or vomiting please call [facility] or or go to Emergency room if any of these symptoms occur. This could be sign of Pancreatit is. liraglutide 2021-09 Yes [id number] 3mg inject 3 [employer] , weight 1-15 [...] to see how to use the [employer] https://[employer]/about- saxenda/ho w-to-use-t he-pen.htm l If experienci ng severe abdominal pain along with nausea and/or vomiting please call [facility] or or go to Emergency room if any of these symptoms occur. This could be sign of Pancreatit is. liraglutide 2021-09 Yes [id number] 3mg inject 3 [employer] , weight 1-15 [...] to see how to use the [employer] https://[employer]/about- saxenda/ho w-to-use-t he-pen.htm l If experienci ng severe abdominal pain along with nausea and/or vomiting please call [facility] or or go to Emergency room if any of these symptoms occur. This could be sign of Pancreatit is. liraglutide 2021-09 Yes [id number] 3mg inject 3 [employer] , weight 1-15 [...] to see how to use the [employer] https://[employer]/about- saxenda/ho w-to-use-t he-pen.htm l If experienci ng severe abdominal pain along with nausea and/or vomiting please call [facility] or or go to Emergency room if any of these symptoms occur. This could be sign of Pancreatit is. liraglutide 2021-09 Yes [id number] 3mg inject 3 [employer] , weight 1-15 [...] to see how to use the [employer] https://[employer]/about- saxenda/ho w-to-use-t he-pen.htm l If experienci ng severe abdominal pain along with nausea and/or vomiting please call clinic [facility] or or go to Emergency room if any of these symptoms occur. This could be sign of Pancreatit is. liraglutide 2021-09 Yes [id number] 3mg inject 3 [employer] , weight 1-15 [...] to see how to use the [employer] https://[employer]/about- saxenda/ho w-to-use-t he-pen.htm l If experienci ng severe abdominal pain along with nausea and/or vomiting please call clinic [facility] or or go to Emergency room if any of these symptoms occur. This could be sign of Pancreatit is. liraglutide 2021-09 Yes [id number] 3mg inject 3 [facility] , weight 1-15 [...] to see how to use the [facility] [email or web address]- [email or web address] w-to-use-t [email or web address] l If experienci ng severe abdominal pain along with nausea and/or vomiting please call clinic [facility] or or go to Emergency room if any of these symptoms occur. This could be sign of Pancreatit is. liraglutide 2021-09 Yes [id number] 3mg inject 3 [facility] , weight 1-15 [...] to see how to use the [facility]enda [email or web address]- [email or web address] w-to-use-t [email or web address] l If experienci ng severe abdominal pain along with nausea and/or vomiting please call clinic [facility] or or go to Emergency room if any of these symptoms occur. This could be sign of Pancreatit is. liraglutide 2021-09 Yes [id number] 3mg inject 3 [facility] , weight 1-15 [...] to see how to use the [facility] [email or web address]/about- [email or web address] w-to-use-t [email or web address] l If experienci ng severe abdominal pain along with nausea and/or vomiting please call clinic [facility] or or go to Emergency room if any of these symptoms occur. This could be sign of Pancreatit is. liraglutide 2021-09 Yes [id number] 3mg inject 3 [facility] , weight 1-15 [...] to see how to use the [facility] [email or web address]- [email or web address] w-to-use-t [email or web address] l If experienci ng severe abdominal pain along with nausea and/or vomiting please call clinic [facility] or or go to Emergency room if any of these symptoms occur. This could be sign of Pancreatit is. liraglutide 2021-09 Yes 3mg Inject 3 [facility] , weight 1-[address] loss, 00:00: the [facility] ([facility]) 3 00 l mg/0.5 mL (18 mg/3 mL) pen injector diphenhydra 2021-09 Yes Take by [facility] vers [...] 13:11: [place] ORAL) 30 Medical Branch diphenhydra 2022-1 Yes Take by [facility] vers mine HCl [...] TAKE BETWEEN 11 PM AND MIDNIGHT dexAMETHaso 2022-1 Yes TAKE 1 [facility] ers ne 1 [...] TAKE BETWEEN 11 PM AND MIDNIGHT dexAMETHaso 2021-09- No TAKE 1 [facility] vers ne 1 mg 0-28 03-06 TABLET BY ity of tablet 00:00: 00:00 MOUTH 00 :00 ONCE NOW Medical FOR 1 DOSE Branch TAKE BETWEEN 11 PM AND MIDNIGHT dexAMETHaso 2021-09- No TAKE 1 [facility] vers ne 1 mg 0-28 03-06 TABLET BY ity of tablet 00:00: 00:00 MOUTH 00 :00 ONCE NOW Medical FOR 1 DOSE Branch TAKE BETWEEN 11 PM AND MIDNIGHT dexAMETHaso 2021-09- No [id number] 1mg Take 1 [facility] ne 1 mg 0-28 10-29 tablet by [facility] of tablet 00:00: 04:59 mouth once 00 :00 now for 1 Medical dose. Take Branch between 11PM and midnight dexAMETHaso 2021-09- No [id number] 1mg Take 1 [facility] ne 1 mg 0-28 10-29 tablet by [facility] tablet 00:00: 04:[place] :[place] now for 1 Medical dose. Take Branch between 11PM and midnight methylpredn 2021-09- No [id number] 125mg [facility] isolone sod 0-20 10-20 ity of succ 01:30: 00:49 [place] (SOLU-MEDRO 00 :00 Medical L) Branch injection 125 mg diphenhydrA 2021-09- No [id number] 25mg [facility] MINE 0-20 10-20 ity of (BENADRYL) 01:30: 01:01 [place] 12.5 mg/5 00 :00 Medical mL solution Branch 25 mg diphenhydrA 2021-09- No [id number] 25mg 25 mg, [facility] MINE 0-20 10-20 Oral, ity of (BENADRYL) 01:30: 01:01 ONCE, 1 [place] as 12.5 mg/5 00 :00 dose, On Medica l mL solution Wed Branch 25 mg 07/14/22 at 2030, Routine methylpredn 2021-09- No [id number] 125mg 125 mg, [facility] isolone sod 0-20 10-20 Slow IV ity of succ 01:30: 00:49 [place], [place] (SOLU-MEDRO 00 :00 ONCE, 1 Medic al L) dose, On Branch injection Wed 125 mg 07/14/22 at 2030, Routine busPIRone 2021-09 Yes [id number] 10mg Take 1 Un rory 10 mg 0-19 tablet by ity of tablet 00:00: mouth 2 (two) Medical times Branch daily as needed for Other (anxiety). busPIRone 2021-09 Yes [id number] 10mg Take 1 Un rory 10 mg 0-19 tablet by ity of tablet 00:00: mouth 2 (two) Medical times Branch daily as needed for Other (anxiety). busPIRone 2021-09 Yes [id number] 10mg Take 1 Un rory 10 mg 0-19 tablet by ity of tablet 00:00: mouth 2 (two) Medical times Branch daily as needed for Other (anxiety). busPIRone 2021-09 Yes [id number] 10mg Take 1 Un rory 10 mg 0-19 tablet by ity of tablet 00:00: mouth 2 (two) Medical times Branch daily as needed for Other (anxiety). cetirizine 2021-09 Yes [id number] 10mg Take 1 [facility] (ZYRTEC) 10 0-19 tablet by [facility] mg tablet 00:00: mouth [place] 00 the Medical morning. Branch famotidine 2021-09 Yes [id number] 40mg Take 1 [facility] 40 mg 0-19 tablet by ity of tablet 00:00: mouth in [place] 00 the Medical morning. Branch busPIRone 2021-09 Yes [id number] 10mg Take 1 Un rory 10 mg 0-19 tablet by ity of tablet 00:00: mouth 2 (two) Medical times Branch daily as needed for Other (anxiety). cetirizine 2021-09 Yes [id number] 10mg Take 1 [facility] (ZYRTEC) 10 0-19 tablet by [facility] mg tablet 00:00: mouth [place] 00 the Medical morning. Branch famotidine 2021-09 Yes [id number] 40mg Take 1 [facility] 40 mg 0-19 tablet by ity of tablet 00:00: mouth in 00 the Medical morning. Branch busPIRone 2021-09 Yes [id number] 10mg Take 1 Un rory 10 mg 0-19 tablet by ity of tablet 00:00: mouth 2 (two) Medical times Branch daily as needed for Other (anxiety). cetirizine 2021-09 Yes [id number] 10mg Take 1 [facility] (ZYRTEC) 10 0-19 tablet by [facility] of mg tablet 00:00: mouth [place] 00 the Medical morning. Branch famotidine 2021-09 Yes [id number] 40mg Take 1 [facility] 40 mg 0-19 tablet by ity of tablet 00:00: mouth in [place] 00 the Medical morning. Branch busPIRone 2021-09 Yes [id number] 10mg Take 1 Un rory 10 mg 0-19 tablet by ity of tablet 00:00: mouth 2 00 (two) Medical times Branch daily as needed for Other (anxiety). cetirizine 2021-09 Yes [id number] 10mg Take 1 [facility] (ZYRTEC) 10 0-19 tablet by [facility] of mg tablet 00:00: mouth [place] 00 the Medical morning. [place] famotidine 2021-09 Yes [id number] 40mg Take 1 [facility] 40 mg 0-19 tablet by ity of tablet 00:00: mouth in [place] 00 the Medical morning. Branch busPIRone 2021-09 Yes [id number] 10mg Take 1 Un rory 10 mg 0-19 tablet by ity of tablet 00:00: mouth 2 [place] 00 (two) Medical times Branch daily as needed for Other (anxiety). cetirizine 2021-09 Yes [id number] 10mg Take 1 [facility] (ZYRTEC) 10 0-19 tablet by [facility] of mg tablet 00:00: mouth in [place] 00 the Medical morning. Branch famotidine 2021-09 Yes [id number] 40mg Take 1 [facility] 40 mg 0-19 tablet by ity of tablet 00:00: mouth in [place] 00 the Medical morning. [place] busPIRone 2021-09 Yes [id number] 10mg Take 1 Un rory 10 mg 0-19 tablet by ity of tablet 00:00: mouth 2 [place] 00 (two) Medical times Branch daily as needed for Other (anxiety). cetirizine 2021-09 Yes [id number] 10mg Take 1 [facility] (ZYRTEC) 10 0-19 tablet by [facility] of mg tablet 00:00: mouth [place] 00 the Medical morning. [place] famotidine 2021-09 Yes [id number] 40mg Take 1 [facility] 40 mg 0-19 tablet by ity of tablet 00:00: mouth in [place] 00 the Medical morning. [place] busPIRone 2021-09 Yes [id number] 10mg Take 1 Un rory 10 mg 0-19 tablet by ity of tablet 00:00: mouth 2 [place] 00 (two) Medical times Branch daily as needed for Other (anxiety). cetirizine 2021-09 Yes [id number] 10mg Take 1 [facility] (ZYRTEC) 10 0-19 tablet by [facility] of mg tablet 00:00: mouth [place] 00 the Medical morning. [place] famotidine 2021-09 Yes [id number] 40mg Take 1 [facility] 40 mg 0-19 tablet by ity of tablet 00:00: mouth in [place] 00 the Medical morning. Branch busPIRone 2021-09 Yes [id number] 10mg Take 1 Un rory 10 mg 0-19 tablet by ity of tablet 00:00: mouth 2 (two) Medical times Branch daily as needed for Other (anxiety). cetirizine 2021-09 Yes [id number] 10mg Take 1 [facility] (ZYRTEC) 10 0-19 tablet by [facility] of mg tablet 00:00: mouth [place] 00 the Medical morning. Branch famotidine 2021-09 Yes [id number] 40mg Take 1 [facility] 40 mg 0-19 tablet by ity of tablet 00:00: mouth in [place] 00 the Medical morning. Branch busPIRone 2021-09 Yes [id number] 10mg Take 1 Un rory 10 mg 0-19 tablet by ity of tablet 00:00: mouth 2 (two) Medical times Branch daily as needed for Other (anxiety). cetirizine 2021-09 Yes [id number] 10mg Take 1 [facility] (ZYRTEC) 10 0-19 tablet by [facility] mg tablet 00:00: [place] the Medical morning. [facility] famotidine 2021-09 Yes [id number] 40mg Take 1 [facility] 40 mg 0-19 tablet by ity of tablet 00:00: mouth in [place] 00 the Medical morning. Branch busPIRone 2021-09 Yes [id number] 10mg Take 1 Un rory 10 mg 0-19 tablet by ity of tablet 00:00: mouth 2 00 (two) Medical times Branch daily as needed for Other (anxiety). cetirizine 2021-09 Yes [id number] 10mg Take 1 [facility] (ZYRTEC) 10 0-19 tablet by [facility] of mg tablet 00:00: mouth [place] 00 the Medical morning. Branch famotidine 2021-09 Yes [id number] 40mg Take 1 [facility] 40 mg 0-19 tablet by ity of tablet 00:00: mouth in [place] 00 the Medical morning. Branch busPIRone 2021-09 Yes [id number] 10mg Take 1 Un rory 10 mg 0-19 tablet by ity of tablet 00:00: mouth 2 00 (two) Medical times Branch daily as needed for Other (anxiety). cetirizine 2021-09 Yes [id number] 10mg Take 1 [facility] (ZYRTEC) 10 0-19 tablet by [facility] of mg tablet 00:00: mouth [place] 00 the Medical morning. Branch famotidine 2021-09 Yes [id number] 40mg Take 1 [facility] 40 mg 0-19 tablet by ity of tablet 00:00: mouth in [place] 00 the Medical morning. Branch busPIRone 2021-09 Yes [id number] 10mg Take 1 Un rory 10 mg 0-19 tablet by ity of tablet 00:00: mouth 2 [place] 00 (two) Medical times Branch daily as needed for Other (anxiety). cetirizine 2021-09 Yes [id number] 10mg Take 1 [facility] (ZYRTEC) 10 0-19 tablet by [facility] of mg tablet 00:00: mouth [place] 00 the Medical morning. Branch famotidine 2021-09 Yes [id number] 40mg Take 1 [facility] 40 mg 0-19 tablet by ity of tablet 00:00: mouth in [place] 00 the Medical morning. Branch busPIRone 2021-09 Yes [id number] 10mg Take 1 Un rory 10 mg 0-19 tablet by ity of tablet 00:00: mouth 2 [place] (two) Medical times Branch daily as needed for Other (anxiety). cetirizine 2021-09 Yes [id number] 10mg Take 1 [facility] (ZYRTEC) 10 0-19 tablet by [facility] of mg tablet 00:00: mouth [place] 00 the Medical morning. Branch famotidine 2021-09 Yes [id number] 40mg Take 1 [facility] 40 mg 0-19 tablet by ity of tablet 00:00: mouth in [place] 00 the Medical morning. Branch busPIRone 2021-09 Yes [id number] 10mg Take 1 Un rory 10 mg 0-19 tablet by ity of tablet 00:00: mouth 2 [place] 00 (two) Medical times Branch daily as needed for Other (anxiety). cetirizine 2021-09 Yes [id number] 10mg Take 1 [facility] (ZYRTEC) 10 0-19 tablet by [facility] of mg tablet 00:00: mouth [place] 00 the Medical morning. Branch famotidine 2021-09 Yes [id number] 40mg Take 1 [facility] 40 mg 0-19 tablet by ity of tablet 00:00: mouth in [place] 00 the Medical morning. Branch busPIRone 2021-09 Yes [id number] 10mg Take 1 Un rory 10 mg 0-19 tablet by ity of tablet 00:00: mouth 2 [place] 00 (two) Medical times Branch daily as needed for Other (anxiety). cetirizine 2021-09 Yes [id number] 10mg Take 1 [facility] (ZYRTEC) 10 0-19 tablet by [facility] of mg tablet 00:00: mouth [place] 00 the Medical morning. Branch famotidine 2021-09 Yes [id number] 40mg Take 1 [facility] 40 mg 0-19 tablet by ity of tablet 00:00: mouth in [place] 00 the Medical morning. Branch busPIRone 2021-09 Yes [id number] 10mg Take 1 Un rory 10 mg 0-19 tablet by ity of tablet 00:00: mouth 2 00 (two) Medical times Branch daily as needed for Other (anxiety). cetirizine 2021-09 Yes [id number] 10mg Take 1 [facility] (ZYRTEC) 10 0-19 tablet by [facility] of mg tablet 00:00: mouth [place] 00 the Medical morning. [place] famotidine 2021-09 Yes [id number] 40mg Take 1 [facility] 40 mg 0-19 tablet by ity of tablet 00:00: mouth in [place] 00 the Medical morning. [place] busPIRone 2021-09 Yes [id number] 10mg Take 1 Un rory 10 mg 0-19 tablet by ity of tablet 00:00: mouth 2 00 (two) Medical times Branch daily as needed for Other (anxiety). cetirizine 2021-09 Yes [id number] 10mg Take 1 [facility] (ZYRTEC) 10 0-19 tablet by [facility] of mg tablet 00:00: mouth [place] 00 the Medical morning. Branch famotidine 2021-09 Yes [id number] 40mg Take 1 [facility] 40 mg 0-19 tablet by ity of tablet 00:00: mouth in [place] 00 the Medical morning. Branch busPIRone 2021-09 Yes [id number] 10mg Take 1 Un rory 10 mg 0-19 tablet by ity of tablet 00:00: mouth 2 [place] 00 (two) Medical times Branch daily as needed for Other (anxiety). cetirizine 2021-09 Yes [id number] 10mg Take 1 [facility] (ZYRTEC) 10 0-19 tablet by [facility] of mg tablet 00:00: mouth [place] 00 the Medical morning. Branch famotidine 2021-09 Yes [id number] 40mg Take 1 [facility] 40 mg 0-19 tablet by ity of tablet 00:00: mouth in [place] 00 the Medical morning. Branch busPIRone 2021-09 Yes [id number] 10mg Take 1 Un rory 10 mg 0-19 tablet by ity of tablet 00:00: mouth 2 00 (two) Medical times Branch daily as needed for Other (anxiety). cetirizine 2021-09 Yes [id number] 10mg Take 1 [facility] (ZYRTEC) 10 0-19 tablet by [facility] of mg tablet 00:00: mouth in [place] 00 the Medical morning. Branch famotidine 2021-09 Yes [id number] 40mg Take 1 [facility] 40 mg 0-19 tablet by ity of tablet 00:00: mouth in [place] 00 the Medical morning. Branch busPIRone 2021-09 Yes [id number] 10mg Take 1 Un rory 10 mg 0-19 tablet by ity of tablet 00:00: mouth 2 [place] (two) Medical times Branch daily as needed for Other (anxiety). cetirizine 2021-09 Yes [id number] 10mg Take 1 [facility] (ZYRTEC) 10 0-19 tablet by [facility] of mg tablet 00:00: mouth [place] 00 the Medical morning. Branch famotidine 2021-09 Yes [id number] 40mg Take 1 [facility] 40 mg 0-19 tablet by ity of tablet 00:00: mouth in [place] 00 the Medical morning. Branch busPIRone 2021-09 Yes [id number] 10mg Take 1 Un rory 10 mg 0-19 tablet by ity of tablet 00:00: mouth 2 [place] 00 (two) Medical times Branch daily as needed for Other (anxiety). cetirizine 2021-09 Yes [id number] 10mg Take 1 [facility] (ZYRTEC) 10 0-19 tablet by [facility] of mg tablet 00:00: mouth [place] 00 the Medical morning. Branch famotidine 2021-09 Yes [id number] 40mg Take 1 [facility] 40 mg 0-19 tablet by ity of tablet 00:00: mouth in [place] 00 the Medical morning. Branch busPIRone 2021-09 Yes [id number] 10mg Take 1 Un rory 10 mg 0-19 tablet by ity of tablet 00:00: mouth 2 (two) Medical times Branch daily as needed for Other (anxiety). cetirizine 2021-09 Yes [id number] 10mg Take 1 [facility] (ZYRTEC) 10 0-19 tablet by [facility] of mg tablet 00:00: mouth in [place] 00 the Medical morning. Branch famotidine 2021-09 Yes [id number] 40mg Take 1 [facility] 40 mg 0-19 tablet by ity of tablet 00:00: mouth in [place] 00 the Medical morning. Branch busPIRone 2021-09 Yes [id number] 10mg Take 1 Un rory 10 mg 0-19 tablet by ity of tablet 00:00: mouth 2 [place] (two) Medical times Branch daily as needed for Other (anxiety). cetirizine 2021-09 Yes [id number] 10mg Take 1 [facility] (ZYRTEC) 10 0-19 tablet by [facility] mg tablet 00:00: [place] the [place] morning. [facility] famotidine 2021-09 Yes [id number] 40mg Take 1 [facility] 40 mg 0-19 tablet by ity of tablet 00:00: mouth in [place] 00 the Medical morning. Branch busPIRone 2021-09 Yes [id number] 10mg Take 1 Un rory 10 mg 0-19 tablet by ity of tablet 00:00: mouth 2 [place] (two) Medical times Branch daily as needed for Other (anxiety). cetirizine 2021-09 Yes [id number] 10mg Take 1 [facility] (ZYRTEC) 10 0-19 tablet by [facility] of mg tablet 00:00: mouth in [place] 00 the Medical morning. Branch famotidine 2021-09 Yes [id number] 40mg Take 1 [facility] 40 mg 0-19 tablet by ity of tablet 00:00: mouth in [place] 00 the Medical morning. Branch busPIRone 2021-09 Yes [id number] 10mg Take 1 Un rory 10 mg 0-19 tablet by ity of tablet 00:00: mouth 2 [place] (two) Medical times Branch daily as needed for Other (anxiety). cetirizine 2021-09 Yes [id number] 10mg Take 1 [facility] (ZYRTEC) 10 0-19 tablet by [facility] of mg tablet 00:00: mouth in [place] 00 the Medical morning. Branch famotidine 2021-09 Yes [id number] 40mg Take 1 [facility] 40 mg 0-19 tablet by ity of tablet 00:00: mouth in [place] 00 the Medical morning. Branch busPIRone 2021-09 Yes [id number] 10mg Take 1 Un rory 10 mg 0-19 tablet by ity of tablet 00:00: mouth 2 [place] 00 (two) Medical times Branch daily as needed for Other (anxiety). cetirizine 2021-09 Yes [id number] 10mg Take 1 [facility] (ZYRTEC) 10 0-19 tablet by [facility] of mg tablet 00:00: mouth in [place] 00 the Medical morning. Branch famotidine 2021-09 Yes [id number] 40mg Take 1 [facility] 40 mg 0-19 tablet by ity of tablet 00:00: mouth in [place] 00 the Medical morning. Branch busPIRone 2021-09 Yes [id number] 10mg Take 1 Un rory 10 mg 0-19 tablet by ity of tablet 00:00: mouth 2 [place] (two) Medical times Branch daily as needed for Other (anxiety). cetirizine 2021-09 Yes [id number] 10mg Take 1 [facility] (ZYRTEC) 10 0-19 tablet by [facility] of mg tablet 00:00: mouth in [place] 00 the Medical morning. Branch famotidine 2021-09 Yes [id number] 40mg Take 1 [facility] 40 mg 0-19 tablet by ity of tablet 00:00: mouth in [place] 00 the Medical morning. Branch busPIRone 2021-09 Yes [id number] 10mg Take 1 Un rory 10 mg 0-19 tablet by ity of tablet 00:00: mouth 2 [place] 00 (two) Medical times Branch daily as needed for Other (anxiety). cetirizine 2021-09 Yes [id number] 10mg Take 1 [facility] (ZYRTEC) 10 0-19 tablet by [facility] of mg tablet 00:00: mouth in [place] 00 the Medical morning. Branch famotidine 2021-09 Yes [id number] 40mg Take 1 [facility] 40 mg 0-19 tablet by ity of tablet 00:00: mouth in [place] 00 the Medical morning. Branch busPIRone 2021-09 Yes [id number] 10mg Take 1 Un rory 10 mg 0-19 tablet by ity of tablet 00:00: mouth 2 (two) Medical times Branch daily as needed for Other (anxiety). cetirizine 2021-09 Yes [id number] 10mg Take 1 [facility] (ZYRTEC) 10 0-19 tablet by [facility] of mg tablet 00:00: mouth in [place] 00 the Medical morning. Branch famotidine 2021-09 Yes [id number] 40mg Take 1 [facility] 40 mg 0-19 tablet by ity of tablet 00:00: mouth in [place] 00 the Medical morning. Branch busPIRone 2021-09 Yes [id number] 10mg Take 1 Un [facility] 10 mg 0-19 tablet by ity of tablet 00:00: mouth 2 [place] (two) Medical times Branch daily as needed for Other (anxiety). cetirizine 2021-09 Yes [id number] 10mg Take 1 [facility] (ZYRTEC) 10 0-19 tablet by [facility] of mg tablet 00:00: mouth in [place] 00 the Medical morning. Branch famotidine 2021-09 Yes [id number] 40mg Take 1 [facility] 40 mg 0-19 tablet by ity of tablet 00:00: mouth in [place] 00 the Medical morning. Branch busPIRone 2021-09 Yes [id number] 10mg Take 1 Un [facility] 10 mg 0-19 tablet by ity of tablet 00:00: mouth 2 [place] (two) Medical times Branch daily as needed for Other (anxiety). cetirizine 2021-09 Yes [id number] 10mg Take 1 [facility] (ZYRTEC) 10 0-19 tablet by [facility] of mg tablet 00:00: mouth [place] 00 the Medical morning. Branch famotidine 2021-09 Yes [id number] 40mg Take 1 [facility] 40 mg 0-19 tablet by ity of tablet 00:00: mouth in [place] 00 the Medical morning. Branch busPIRone 2021-09 Yes [id number] 10mg Take 1 Un [facility] 10 mg 0-19 tablet by ity of tablet 00:00: mouth 2 00 (two) Medical times Branch daily as needed for Other (anxiety). cetirizine 2021-09 Yes [id number] 10mg Take 1 [facility] (ZYRTEC) 10 0-19 tablet by [facility] of mg tablet 00:00: mouth in [place] 00 the Medical morning. Branch famotidine 2021-09 Yes [id number] 40mg Take 1 [facility] 40 mg 0-19 tablet by ity of tablet 00:00: mouth in 00 the Medical morning. Branch busPIRone 2021-09 Yes [id number] 10mg Take 1 Un [facility] 10 mg 0-19 tablet by ity of tablet 00:00: mouth 2 (two) Medical times Branch daily as needed for Other (anxiety). cetirizine 2021-09 Yes [id number] 10mg Take 1 [facility] (ZYRTEC) 10 0-19 tablet by [facility] mg tablet 00:00: [place] 00 the Medical morning. [facility] famotidine 2021-09 Yes [id number] 40mg Take 1 [facility] 40 mg 0-19 tablet by ity of tablet 00:00: mouth in 00 the Medical morning. Branch busPIRone 2021-09 Yes [id number] 10mg Take 1 [facility] 10 mg 0-19 tablet by ity of tablet 00:00: mouth 2 (two) Medical times Branch daily as needed for Other (anxiety). cetirizine 2021-09 Yes [id number] 10mg Take 1 [facility] (ZYRTEC) 10 0-19 tablet by [facility] of mg tablet 00:00: mouth in [place] 00 the Medical morning. Branch famotidine 2021-09 Yes [id number] 40mg Take 1 [facility] 40 mg 0-19 tablet by ity of tablet 00:00: mouth in [place] 00 the Medical morning. Branch busPIRone 2021-09 Yes [id number] 10mg Take 1 Un [facility] 10 mg 0-19 tablet by ity of tablet 00:00: mouth 2 (two) Medical times Branch daily as needed for Other (anxiety). cetirizine 2021-09 Yes [id number] 10mg Take 1 [facility] (ZYRTEC) 10 0-19 tablet by [facility] of mg tablet 00:00: mouth in [place] 00 the Medical morning. Branch famotidine 2021-09 Yes [id number] 40mg Take 1 [facility] 40 mg 0-19 tablet by ity of tablet 00:00: mouth in [place] 00 the Medical morning. Branch busPIRone 2021-09 Yes [id number] 10mg Take 1 [facility] 10 mg 0-19 tablet by [facility] of tablet 00:00: mouth 2 (two) Medical times Branch daily as needed for Other (anxiety). cetirizine 2021-09 Yes [id number] 10mg Take 1 [facility] (ZYRTEC) 10 0-19 tablet by [facility] of mg tablet 00:00: mouth in [place] 00 the Medical morning. Branch famotidine 2021-09 Yes [id number] 40mg Take 1 [facility] 40 mg 0-19 tablet by ity of tablet 00:00: mouth in [place] 00 the Medical morning. Branch busPIRone 2021-09 Yes [id number] 10mg Take 1 [facility] 10 mg 0-19 tablet by ity of tablet 00:00: mouth 2 (two) Medical times Branch daily as needed for Other (anxiety). cetirizine 2021-09 Yes [id number] 10mg Take 1 [facility] (ZYRTEC) 10 0-19 tablet by [facility] of mg tablet 00:00: mouth in [place] 00 the Medical morning. Branch famotidine 2021-09 Yes [id number] 40mg Take 1 [facility] 40 mg 0-19 tablet by ity of tablet 00:00: mouth in [place] 00 the Medical morning. Branch busPIRone 2021-09 Yes [id number] 10mg Take 1 Un [facility] 10 mg 0-19 tablet by ity of tablet 00:00: mouth 2 (two) Medical times Branch daily as needed for Other (anxiety). cetirizine 2021-09 Yes [id number] 10mg Take 1 [facility] (ZYRTEC) 10 0-19 tablet by [facility] of mg tablet 00:00: mouth in [place] 00 the Medical morning. Branch famotidine 2021-09 Yes [id number] 40mg Take 1 [facility] 40 mg 0-19 tablet by ity of tablet 00:00: mouth in [place] 00 the Medical morning. Branch busPIRone 2021-09 Yes [id number] 10mg Take 1 [facility] 10 mg 0-19 tablet by ity of tablet 00:00: mouth 2 (two) Medical times Branch daily as needed for Other (anxiety). cetirizine 2021-09 Yes [id number] 10mg Take 1 [facility] (ZYRTEC) 10 0-19 tablet by [facility] of mg tablet 00:00: mouth in [place] 00 the Medical morning. Branch famotidine 2021-09 Yes [id number] 40mg Take 1 [facility] 40 mg 0-19 tablet by ity of tablet 00:00: mouth in [place] 00 the Medical morning. Branch busPIRone 2021-09 Yes [id number] 10mg Take 1 [facility] 10 mg 0-19 tablet by [facility]y of tablet 00:00: mouth 2 00 (two) Medical times Branch daily as needed for Other (anxiety). cetirizine 2021-09 Yes [id number] 10mg Take 1 [facility] (ZYRTEC) 10 0-19 tablet by [facility] of mg tablet 00:00: mouth in [place] 00 the Medical morning. Branch famotidine 2021-09 Yes [id number] 40mg Take 1 [facility] 40 mg 0-19 tablet by ity of tablet 00:00: mouth in [place] 00 the Medical morning. Branch busPIRone 2021-09 Yes [id number] 10mg Take 1 [facility] 10 mg 0-19 tablet by [facility]y of tablet 00:00: mouth 2 (two) Medical times Branch daily as needed for Other (anxiety). cetirizine 2021-09 Yes [id number] 10mg Take 1 [facility] (ZYRTEC) 10 0-19 tablet by [facility] of mg tablet 00:00: mouth in [place] 00 the Medical morning. Branch famotidine 2021-09 Yes [id number] 40mg Take 1 [facility] 40 mg 0-19 tablet by ity of tablet 00:00: mouth in [place] 00 the Medical morning. Branch busPIRone 2021-09 Yes [id number] 10mg Take 1 [facility] 10 mg 0-19 tablet by [facility]y of tablet 00:00: mouth 2 00 (two) Medical times Branch daily as needed for Other (anxiety). cetirizine 2021-09 Yes [id number] 10mg Take 1 [facility] (ZYRTEC) 10 0-19 tablet by [facility] mg tablet 00:00: mouth in [place] 00 the Medical morning. Branch famotidine 2021-09 Yes [id number] 40mg Take 1 [facility] 40 mg 0-19 tablet by [facility]y of tablet 00:00: mouth in [place] 00 the Medical morning. Branch busPIRone 2021-09 Yes [id number] 10mg Take 1 [facility] 10 mg 0-19 tablet by [facility]y of tablet 00:00: mouth 2 (two) Medical times Branch daily as needed for Other (anxiety). cetirizine 2021-09 Yes [id number] 10mg Take 1 [facility] (ZYRTEC) 10 0-19 tablet by [facility] mg tablet 00:00: mouth in [place] 00 the Medical morning. Branch famotidine 2021-09 Yes [id number] 40mg Take 1 [facility] 40 mg 0-19 tablet by [facility] of tablet 00:00: mouth in [place] 00 the Medical morning. Branch busPIRone 2021-09 Yes [id number] 10mg Take 1 [facility] 10 mg 0-19 tablet by [facility] of tablet 00:00: mouth 2 [place] (two) Medical times Branch daily as needed for Other (anxiety). cetirizine 2021-09 Yes [id number] 10mg Take 1 [facility] (ZYRTEC) 10 0-19 tablet by [facility] tablet 00:00: mouth [place] 00 the Medical morning. Branch famotidine 2021-09 Yes [id number] 40mg Take 1 [facility] 40 mg 0-19 tablet by [facility] tablet 00:00: mouth in [place] 00 the Medical morning. Branch busPIRone 2021-09 Yes [id number] 10mg Take 1 [facility] 10 mg 0-19 tablet by [facility] tablet 00:00: mouth 2 [place] (two) Medical times Branch daily as needed for Other (anxiety). cetirizine 2021-09 Yes [id number] 10mg Take 1 [facility] (ZYRTEC) 10 0-19 tablet by [facility] tablet 00:00: mouth [place] 00 the Medical morning. [facility] famotidine 2021-09 Yes [id number] 40mg Take 1 [facility] 40 mg 0-19 tablet by [facility] tablet 00:00: mouth in [place] 00 the Medical morning. Branch busPIRone 2021-09 Yes [id number] 10mg Take 1 [facility] 10 mg 0-19 tablet by [facility] tablet 00:00: mouth 2 [place] 00 (two) Medical times Branch daily as needed for Other (anxiety). cetirizine 2021-09 Yes [id number] 10mg Take 1 [facility] (ZYRTEC) 10 0-19 tablet by [facility] tablet 00:00: mouth [place] 00 the Medical morning. [facility] famotidine 2021-09 Yes [id number] 40mg Take 1 [facility] 40 mg 0-19 tablet by [facility] tablet 00:00: mouth in 00 the Medical morning. Branch busPIRone 2021-09 Yes [id number] 10mg Take 1 [facility] 10 mg 0-19 tablet by [facility] tablet 00:00: mouth 2 (two) Medical times Branch daily as needed for Other (anxiety). cetirizine 2021-09 Yes [id number] 10mg Take 1 [facility] (ZYRTEC) 10 0-19 tablet by [facility] mg tablet 00:00: mouth in [place] the Medical morning. Branch famotidine 2021-09 Yes [id number] 40mg Take 1 [facility] 40 mg 0-19 tablet by [facility] tablet 00:00: mouth in the Medical morning. Branch busPIRone 2021-09 Yes [id number] 10mg Take 1 [facility] 10 mg 0-19 tablet by [facility] tablet 00:00: mouth 2 (two) Medical times Branch daily as needed for Other (anxiety). cetirizine 2021-09 Yes [id number] 10mg Take 1 [facility] (ZYRTEC) 10 0-19 tablet by [facility] [place] the Medical morning. [facility] famotidine 2021-09 Yes [id number] 40mg Take 1 [facility] 40 mg 0-19 tablet by [facility] tablet 00:00: mouth in [place] 00 the Medical morning. Branch busPIRone 2021-09 Yes [id number] 10mg Take 1 [facility] 10 mg 0-19 tablet by [facility] tablet 00:00: mouth 2 (two) Medical times Branch daily as needed for Other (anxiety). cetirizine 2021-09 Yes [id number] 10mg Take 1 [facility] (ZYRTEC) 10 0-19 tablet by [facility] [place] the Medical morning. [facility] famotidine 2021-09 Yes [id number] 40mg Take 1 [facility] 40 mg 0-19 tablet by [facility] tablet 00:00: mouth in [place] 00 the Medical morning. Branch busPIRone 2021-09 Yes [id number] 10mg Take 1 [facility] 10 mg 0-19 tablet by [facility] tablet 00:00: mouth 2 [place] 00 (two) Medical times Branch daily as needed for Other (anxiety). cetirizine 2021-09 Yes [id number] 10mg Take 1 [facility] (ZYRTEC) 10 0-19 tablet by [facility] tablet 00:00: mouth [place] 00 the Medical morning. [facility] famotidine 2021-09 Yes [id number] 40mg Take 1 [facility] 40 mg 0-19 tablet by [facility] tablet 00:00: mouth in [place] 00 the Medical morning. Branch busPIRone 2021-09 Yes [id number] 10mg Take 1 [facility] 10 mg 0-19 tablet by [facility] tablet 00:00: mouth 2 [place] 00 (two) Medical times Branch daily as needed for Other (anxiety). cetirizine 2021-09 Yes [id number] 10mg Take 1 [facility] (ZYRTEC) 10 0-19 tablet by [facility] tablet 00:00: mouth [place] 00 the Medical morning. [place] famotidine 2021-09 Yes [id number] 40mg Take 1 [facility] 40 mg 0-19 tablet by [facility] tablet 00:00: mouth in [place] 00 the Medical morning. [place] busPIRone 2021-09 Yes [id number] 10mg Take 1 [facility] 10 mg 0-19 tablet by [facility] tablet 00:00: mouth 2 [place] 00 (two) Medical times Branch daily as needed for Other (anxiety). cetirizine 2021-09 Yes [id number] 10mg Take 1 [facility] (ZYRTEC) 10 0-19 tablet by [facility] tablet 00:00: mouth [place] 00 the Medical morning. [facility] famotidine 2021-09 Yes [id number] 40mg Take 1 [facility] 40 mg 0-19 tablet by [facility] tablet 00:00: mouth in [place] 00 the Medical morning. Branch busPIRone 2021-09 Yes [id number] 10mg Take 1 [facility] 10 mg 0-19 tablet by [facility] tablet 00:00: mouth 2 (two) Medical times Branch daily as needed for Other (anxiety). cetirizine 2021-09 Yes [id number] 10mg Take 1 [facility] (ZYRTEC) 10 0-19 tablet by [facility] tablet 00:00: mouth [place] 00 the Medical morning. [facility] famotidine 2021-09 Yes [id number] 40mg Take 1 [facility] 40 mg 0-19 tablet by [facility] tablet 00:00: mouth in 00 the Medical morning. Branch busPIRone 2021-09 Yes [id number] 10mg Take 1 [facility] 10 mg 0-19 tablet by [facility] tablet 00:00: mouth 2 (two) Medical times Branch daily as needed for Other (anxiety). cetirizine 2021-09 Yes [id number] 10mg Take 1 [facility] (ZYRTEC) 10 0-19 tablet by [facility] mg tablet 00:00: mouth in s the Medical morning. [facility] famotidine 2021-09 Yes [id number] 40mg Take 1 [facility] 40 mg 0-19 tablet by [facility] tablet 00:00: mouth in the Medical morning. Branch busPIRone 2021-09 Yes [id number] 10mg Take 1 [facility] 10 mg 0-19 tablet by [facility] tablet 00:00: mouth 2 (two) Medical times Branch daily as needed for Other (anxiety). cetirizine 2021-09 Yes [id number] 10mg Take 1 [facility] (ZYRTEC) 10 0-19 tablet by [facility] mg tablet 00:00: mouth in [place] the Medical morning. [facility] famotidine 2021-09 Yes [id number] 40mg Take 1 [facility] 40 mg 0-19 tablet by [facility] tablet 00:00: mouth in 00 the Medical morning. Branch busPIRone 2021-09 Yes [id number] 10mg Take 1 [facility] 10 mg 0-19 tablet by [facility] tablet 00:00: mouth 2 (two) Medical times Branch daily as needed for Other (anxiety). cetirizine 2021-09 Yes [id number] 10mg Take 1 [facility] (ZYRTEC) 10 0-19 tablet by [facility] tablet 00:00: mouth [place] 00 the Medical morning. [facility] famotidine 2021-09 Yes [id number] 40mg Take 1 [facility] 40 mg 0-19 tablet by [facility] tablet 00:00: mouth in [place] 00 the Medical morning. Branch busPIRone 2021-09 Yes [id number] 10mg Take 1 [facility] 10 mg 0-19 tablet by [facility] tablet 00:00: mouth 2 [place] (two) Medical times Branch daily as needed for Other (anxiety). cetirizine 2021-09 Yes [id number] 10mg Take 1 [facility] (ZYRTEC) 10 0-19 tablet by [facility] tablet 00:00: mouth [place] 00 the Medical morning. [facility] famotidine 2021-09 Yes [id number] 40mg Take 1 [facility] 40 mg 0-19 tablet by [facility] tablet 00:00: mouth in [place] 00 the Medical morning. Branch busPIRone 2021-09 Yes [id number] 10mg Take 1 [facility] 10 mg 0-19 tablet by [facility] tablet 00:00: mouth 2 [place] (two) Medical times [place] daily as needed for Other (anxiety). cetirizine 2021-09 Yes [id number] 10mg Take 1 [facility] (ZYRTEC) 10 0-19 tablet [facility]. [facility] famotidine 2021-09 Yes [id number] 40mg Take 1 [facility] 40 mg 0-19 tablet by [facility] tablet 00:00: mouth in [place] 00 the Medical morning. Branch busPIRone 2021-09 Yes [id number] 10mg Take 1 [facility] 10 mg 0-19 tablet by [facility] tablet 00:00: mouth 2 [place] (two) Medical times Branch daily as needed for Other (anxiety). cetirizine 2021-09 Yes [id number] 10mg Take 1 [facility] (ZYRTEC) 10 0-19 tablet by [facility] tablet 00:00: mouth [place] 00 the Medical morning. [facility] famotidine 2021-09 Yes [id number] 40mg Take 1 [facility] 40 mg 0-19 tablet by [facility] tablet 00:00: mouth in [place] 00 the Medical morning. Branch busPIRone 2021-09 Yes [id number] 10mg Take 1 [facility] 10 mg 0-19 tablet by [facility] tablet 00:00: mouth 2 (two) Medical times Branch daily as needed for Other (anxiety). cetirizine 2021-09 Yes [id number] 10mg Take 1 [facility] (ZYRTEC) 10 0-19 tablet by [facility] tablet 00:00: mouth [place] 00 the Medical morning. [facility] famotidine 2021-09 Yes [id number] 40mg Take 1 [facility] 40 mg 0-19 tablet by [facility] tablet 00:00: mouth in [place] 00 the Medical morning. Branch busPIRone 2021-09 Yes [id number] 10mg Take 1 [facility] 10 mg 0-19 tablet by [facility] tablet 00:00: mouth 2 (two) Medical times Branch daily as needed for Other (anxiety). cetirizine 2021-09 Yes [id number] 10mg Take 1 [facility] (ZYRTEC) 10 0-19 tablet by [facility] tablet 00:00: mouth [place] 00 the Medical morning. [facility] famotidine 2021-09 Yes [id number] 40mg Take 1 [facility] 40 mg 0-19 tablet by [facility] tablet 00:00: mouth in [place] 00 the Medical morning. [facility] busPIRone 2021-09 Yes [id number] 10mg Take 1 [facility] 10 mg 0-19 tablet by [facility] tablet 00:00: mouth 2 (two) Medical times Branch daily as needed for Other (anxiety). cetirizine 2021-09 Yes [id number] 10mg Take 1 [facility] (ZYRTEC) 10 0-19 tablet by [facility] tablet 00:00: mouth [place] 00 the Medical morning. [facility] famotidine 2021-09 Yes [id number] 40mg Take 1 [facility] 40 mg 0-19 tablet by [facility] tablet 00:00: mouth in [place] 00 the Medical morning. Branch busPIRone 2021-09 Yes [id number] 10mg Take 1 [facility] 10 mg 0-19 tablet by [facility] tablet 00:00: mouth 2 [place] (two) Medical times Branch daily as needed for Other (anxiety). cetirizine 2021-09 Yes [id number] 10mg Take 1 [facility] (ZYRTEC) 10 0-19 tablet by [facility] tablet 00:00: mouth [place] 00 the Medical morning. [facility] famotidine 2021-09 Yes [id number] 40mg Take 1 [facility] 40 mg 0-19 tablet by [facility] tablet 00:00: mouth in [place] 00 the Medical morning. [facility] busPIRone 2021-09 Yes [id number] 10mg Take 1 [facility] 10 mg 0-19 tablet by [facility] tablet 00:00: mouth 2 [place] 00 (two) Medical times Branch daily as needed for Other (anxiety). cetirizine 2021-09 Yes [id number] 10mg Take 1 [facility] (ZYRTEC) 10 0-19 tablet by [facility] mg tablet 00:00: mouth [place] 00 the Medical morning. [facility] famotidine 2021-09 Yes [id number] 40mg Take 1 [facility] 40 mg 0-19 tablet by [facility] tablet 00:00: mouth in [place] 00 the Medical morning. [facility] busPIRone 2021-09 Yes [id number] 10mg Take 1 [facility] 10 mg 0-19 tablet by [facility] tablet 00:00: mouth 2 [place] (two) Medical times Branch daily as needed for Other (anxiety). cetirizine 2021-09 Yes [id number] 10mg Take 1 [facility] (ZYRTEC) 10 0-19 tablet by [facility] tablet 00:[place]: [place] the Medical morning. [facility] famotidine 2021-09 Yes [id number] 40mg Take 1 [facility] 40 mg 0-19 tablet by [facility] tablet 00:00: mouth in [place] 00 the Medical morning. [facility] busPIRone 2021-09 Yes [id number] 10mg Take 1 [facility] 10 mg 0-19 tablet by [facility] tablet 00:00: mouth 2 [place] 00 (two) Medical times Branch daily as needed for Other (anxiety). cetirizine 2021-09 Yes [id number] 10mg Take 1 [facility] (ZYRTEC) 10 0-19 tablet by [facility] tablet 00:00: mouth [place] 00 the Medical morning. [facility] famotidine 2021-09 Yes [id number] 40mg Take 1 [facility] 40 mg 0-19 tablet by [facility] tablet 00:00: mouth in [place] 00 the Medical morning. [facility] busPIRone 2021-09 Yes [id number] 10mg Take 1 [facility] 10 mg 0-19 tablet by [facility] tablet 00:00: mouth 2 (two) Medical times Branch daily as needed for Other (anxiety). cetirizine 2021-09 Yes [id number] 10mg Take 1 [facility] (ZYRTEC) 10 0-19 tablet by [facility] mg tablet 00:00: mouth [place] 00 the Medical morning. [facility] famotidine 2021-09 Yes [id number] 40mg Take 1 [facility] 40 mg 0-19 tablet by [facility] tablet 00:00: mouth in [place] 00 the Medical morning. Branch busPIRone 2021-09 Yes [id number] 10mg Take 1 [facility] 10 mg 0-19 tablet by [facility] tablet 00:00: mouth 2 (two) Medical times Branch daily as needed for Other (anxiety). cetirizine 2021-09 Yes [id number] 10mg Take 1 [facility] (ZYRTEC) 10 0-19 tablet by [facility] tablet 00:[place] the Medical morning. [facility] famotidine 2021-09 Yes [id number] 40mg Take 1 [facility] 40 mg 0-19 tablet by [facility] tablet 00:00: mouth in [place] 00 the Medical morning. Branch busPIRone 2021-09 Yes [id number] 10mg Take 1 [facility] 10 mg 0-19 tablet by [facility] tablet 00:00: mouth 2 (two) Medical times Branch daily as needed for Other (anxiety). cetirizine 2021-09 Yes [id number] 10mg Take 1 [facility] (ZYRTEC) 10 0-19 tablet by [facility] mg tablet 00:00: mouth [place] 00 the Medical morning. [facility] famotidine 2021-09 Yes [id number] 40mg Take 1 [facility] 40 mg 0-19 tablet by [facility] tablet 00:00: mouth in [place] 00 the Medical morning. Branch busPIRone 2021-09 Yes [id number] 10mg Take 1 [facility] 10 mg 0-19 tablet by [facility] tablet 00:00: mouth 2 [place] 00 (two) Medical times Branch daily as needed for Other (anxiety). cetirizine 2021-09 Yes [id number] 10mg Take 1 [facility] (ZYRTEC) 10 0-19 tablet by [facility] tablet 00:00: mouth [place] 00 the Medical morning. [facility] famotidine 2021-09 Yes [id number] 40mg Take 1 [facility] 40 mg 0-19 tablet by [facility] tablet 00:00: mouth in [place] 00 the Medical morning. Branch busPIRone 2021-09 Yes [id number] 10mg Take 1 [facility] 10 mg 0-19 tablet by [facility] tablet 00:00: mouth 2 [place] 00 (two) Medical times Branch daily as needed for Other (anxiety). cetirizine 2021-09 Yes [id number] 10mg Take 1 [facility] (ZYRTEC) 10 0-19 tablet by [facility] mg tablet 00:00: mouth [place] 00 the Medical morning. [facility] famotidine 2021-09 Yes [id number] 40mg Take 1 [facility] 40 mg 0-19 tablet by [facility] tablet 00:00: mouth in [place] 00 the Medical morning. [place] busPIRone 2021-09 Yes [id number] 10mg Take 1 [facility] 10 mg 0-19 tablet by [facility] tablet 00:00: mouth 2 [place] 00 (two) Medical times Branch daily as needed for Other (anxiety). cetirizine 2021-09 Yes [id number] 10mg Take 1 [facility] (ZYRTEC) 10 0-19 tablet by [facility] tablet 00:00: mouth [place] 00 the Medical morning. [place] famotidine 2021-09 Yes [id number] 40mg Take 1 [facility] 40 mg 0-19 tablet by [facility] tablet 00:00: mouth in [place] 00 the Medical morning. Branch busPIRone 2021-09- No [id number] 10mg Take 1 [facility] 10 mg 0-19 03-06 tablet by [facility] tablet 00:00: 00:00 mouth 2 [place] 00 :00 (two) Medical times Branch daily as needed for Other (anxiety). cetirizine 2021-09- No [id number] 10mg Take 1 [facility] (ZYRTEC) 10 0-19 03-06 tablet by [facility] y of mg tablet 00:00: 00:00 mouth in [place] :00 the Medical morning. Branch famotidine 2021-09- No [id number] 40mg Take 1 [facility] 40 mg 0-19 03-06 tablet by [facility] tablet 00:00: 00:00 mouth in [place] 00 :00 the Medical morning. Branch busPIRone 2021-09- No [id number] 10mg Take 1 [facility] 10 mg 11-29 tablet by [facility] tablet 00:00: 00:00 mouth 2 [place] 00 :00 (two) Medical times Branch daily as needed for Other (anxiety). cetirizine 2021-09- No [id number] 10mg Take 1 [facility] (ZYRTEC) 10 11-29 tablet by [facility] y of mg tablet 00:00: 00:00 mouth in [place] :00 the Medical morning. Branch famotidine 2021-09- No [id number] 40mg Take 1 [facility] 40 mg 11-29 tablet by [facility] tablet 00:00: 00:00 mouth in [place] 00 :00 the Medical morning. Branch SERTraline Yes [id number] 50mg Take 1 [facility] (ZOLOFT) 50 9-22 tablet by [facility] mg tablet 00:00: mouth [place] 00 the Medical morning. Branch SERTraline Yes [id number] 50mg Take 1 [facility] (ZOLOFT) 50 9-22 tablet by [facility] mg tablet 00:00: mouth [place] 00 the Medical morning. [facility] SERTraline Yes [id number] 50mg Take 1 [facility] (ZOLOFT) 50 9-22 tablet by [facility] mg tablet 00:00: mouth in [place] 00 the Medical morning. Branch SERTraline 0 Yes [id number] 50mg Take 1 [facility] (ZOLOFT) 50 9-22 tablet by [facility] mg tablet 00:00: mouth [place] 00 the Medical morning. Branch SERTraline 0 Yes [id number] 50mg Take 1 [facility] (ZOLOFT) 50 9-22 tablet by [facility] mg tablet 00:00: mouth [place] 00 the Medical morning. Branch SERTraline 0 Yes [id number] 50mg Take 1 [facility] (ZOLOFT) 50 9-22 tablet by [facility] mg tablet 00:00: mouth [place] 00 the Medical morning. Branch SERTraline 2022-0 Yes [id number] 50mg Take 1 [facility] (ZOLOFT) 50 9-22 tablet by [facility] mg tablet 00:00: mouth [place] 00 the Medical morning. [facility] SERTraline 2021-0 Yes [id number] 50mg Take 1 [facility] (ZOLOFT) 50 9-22 tablet by [facility] mg tablet 00:00: mouth [place] 00 the Medical morning. [facility] SERTraline 2021-0 Yes [id number] 50mg Take 1 [facility] (ZOLOFT) 50 9-22 tablet by [facility] mg tablet 00:00: mouth [place] 00 the Medical morning. [facility] SERTraline 2021-0 Yes [id number] 50mg Take 1 [facility] (ZOLOFT) 50 9-22 tablet by [facility] mg tablet 00:00: mouth in [place] 00 the Medical morning. [facility] SERTraline 0 Yes [id number] 50mg Take 1 [facility] (ZOLOFT) 50 9-22 tablet by [facility] mg tablet 00:00: mouth in [place] 00 the Medical morning. [facility] SERTraline 0 Yes [id number] 50mg Take 1 [facility] (ZOLOFT) 50 9-22 tablet by [facility] mg tablet 00:00: mouth in [place] 00 the Medical morning. Branch SERTraline 0 Yes [id number] 50mg Take 1 [facility] (ZOLOFT) 50 9-22 tablet by [facility] mg tablet 00:00: mouth in [place] 00 the Medical morning. [facility] SERTraline 2021-0 Yes [id number] 50mg Take 1 [facility] (ZOLOFT) 50 9-22 tablet by [facility] mg tablet 00:00: mouth in [place] 00 the Medical morning. [facility] SERTraline 2021-0 Yes [id number] 50mg Take 1 [facility] (ZOLOFT) 50 9-22 tablet by [facility] mg tablet 00:00: mouth in [place] 00 the Medical morning. [facility] SERTraline 2021-0 Yes [id number] 50mg Take 1 [facility] (ZOLOFT) 50 9-22 tablet by [facility] mg tablet 00:00: mouth in [place] 00 the Medical morning. [facility] SERTraline 2021-0 Yes [id number] 50mg Take 1 [facility] (ZOLOFT) 50 9-22 tablet by [facility] mg tablet 00:00: mouth in [place] 00 the Medical morning. [facility] SERTraline 2021-0 Yes [id number] 50mg Take 1 [facility] (ZOLOFT) 50 9-22 tablet by [facility] mg tablet 00:00: mouth in [place] 00 the Medical morning. [facility] SERTraline 2021-0 Yes [id number] 50mg Take 1 [facility] (ZOLOFT) 50 9-22 tablet by [facility] mg tablet 00:00: mouth in [place] 00 the Medical morning. [facility] SERTraline 0 Yes [id number] 50mg Take 1 [facility] (ZOLOFT) 50 9-22 tablet by [facility] mg tablet 00:00: mouth in [place] 00 the Medical morning. [facility] SERTraline 0 Yes [id number] 50mg Take 1 [facility] (ZOLOFT) 50 9-22 tablet by [facility] mg tablet 00:00: mouth in [place] 00 the Medical morning. [facility] SERTraline 0 Yes [id number] 50mg Take 1 [facility] (ZOLOFT) 50 9-22 tablet by [facility] mg tablet 00:00: mouth in [place] 00 the Medical morning. [facility] SERTraline 0 Yes [id number] 50mg Take 1 [facility] (ZOLOFT) 50 9-22 tablet by [facility] mg tablet 00:00: mouth in [place] 00 the Medical morning. [facility] SERTraline 0 Yes [id number] 50mg Take 1 [facility] (ZOLOFT) 50 9-22 tablet by [facility] mg tablet 00:00: mouth in [place] 00 the Medical morning. [facility] SERTraline 2021-0 Yes [id number] 50mg Take 1 [facility] (ZOLOFT) 50 9-22 tablet by [facility] mg tablet 00:00: mouth in [place] 00 the Medical morning. [facility] SERTraline 2021-0 Yes [id number] 50mg Take 1 [facility] (ZOLOFT) 50 9-22 tablet by [facility] mg tablet 00:00: mouth in [place] 00 the Medical morning. [facility] SERTraline 2021-0 Yes [id number] 50mg Take 1 [facility] (ZOLOFT) 50 9-22 tablet by [facility] mg tablet 00:00: mouth in [place] 00 the Medical morning. [facility] SERTraline 2021-0 Yes [id number] 50mg Take 1 [facility] (ZOLOFT) 50 9-22 tablet by [facility] mg tablet 00:00: mouth in [place] 00 the Medical morning. [facility] SERTraline 2021-0 Yes [id number] 50mg Take 1 [facility] (ZOLOFT) 50 9-22 tablet by [facility] mg tablet 00:00: mouth in [place] 00 the Medical morning. [facility] SERTraline 2021-0 Yes [id number] 50mg Take 1 [facility] (ZOLOFT) 50 9-22 tablet by [facility] mg tablet 00:00: mouth in [place] 00 the Medical morning. [facility] SERTraline 2021-0 Yes [id number] 50mg Take 1 [facility] (ZOLOFT) 50 9-22 tablet by [facility] mg tablet 00:00: mouth in [place] 00 the Medical morning. [facility] SERTraline 0 Yes [id number] 50mg Take 1 [facility] (ZOLOFT) 50 9-22 tablet by [facility] mg tablet 00:00: mouth in [place] 00 the Medical morning. [facility] SERTraline 2021-0 Yes [id number] 50mg Take 1 [facility] (ZOLOFT) 50 9-22 tablet by [facility] mg tablet 00:00: mouth in [place] 00 the Medical morning. [facility] SERTraline 2021-0 Yes [id number] 50mg Take 1 [facility] (ZOLOFT) 50 9-22 tablet by [facility] mg tablet 00:00: mouth in [place] 00 the Medical morning. [facility] SERTraline 2021-0 Yes [id number] 50mg Take 1 [facility] (ZOLOFT) 50 9-22 tablet by [facility] mg tablet 00:00: mouth in [place] 00 the Medical morning. [facility] SERTraline 2021-0 Yes [id number] 50mg Take 1 [facility] (ZOLOFT) 50 9-22 tablet by [facility] mg tablet 00:00: mouth [place] 00 the Medical morning. [facility] SERTraline 2021-0 Yes [id number] 50mg Take 1 [facility] (ZOLOFT) 50 9-22 tablet by [facility] mg tablet 00:00: mouth [place] 00 the Medical morning. [facility] SERTraline Yes [id number] 50mg Take 1 [facility] (ZOLOFT) 50 9-22 tablet by [facility] mg tablet 00:00: mouth [place] 00 the Medical morning. [facility] SERTraline Yes [id number] 50mg Take 1 [facility] (ZOLOFT) 50 9-22 tablet by [facility] mg tablet 00:00: mouth [place] 00 the Medical morning. [facility] SERTraline 2021- No [id number] 50mg Take 1 [facility] (ZOLOFT) 50 9-22 12-16 tablet by [facility] y of mg tablet 00:00: 00:00 mouth in [place] 00 :00 the Medical morning. [facility] SERTraline 2021- No [id number] 50mg Take 1 [facility] (ZOLOFT) 50 9-22 12-16 tablet by [facility] y of mg tablet 00:00: 00:00 mouth in [place] 00 :00 the Medical morning. [facility] SERTraline 2021- No [id number] 50mg Take 1 [facility] (ZOLOFT) 50 9-22 12-16 tablet by [facility] y of mg tablet 00:00: 00:00 mouth in [place] 00 :00 the Medical morning. [facility] SERTraline 2021- No [id number] 50mg Take 1 [facility] (ZOLOFT) 50 9-22 12-16 tablet by it y of mg tablet 00:00: 00:00 mouth in [place] 00 :00 the Medical morning. Branch traZODone Yes [id number] 50mg Take 1 [facility] 50 mg 8-25 tablet by [facility] of tablet 00:00: mouth at [place] 00 bedtime as Medical needed for Branch Insomnia. traZODone Yes [id number] 50mg Take 1 [facility] 50 mg 8-25 tablet by [facility] tablet 00:00: mouth at [place] 00 bedtime as Medical needed for Branch Insomnia. traZODone Yes [id number] 50mg Take 1 [facility] 50 mg 8-25 tablet by [facility] of tablet 00:00: mouth at [place] 00 bedtime as Medical needed for Branch Insomnia. traZODone Yes [id number] 50mg Take 1 [facility] 50 mg 8-25 tablet by [facility] of tablet 00:00: mouth at [place] 00 bedtime as Medical needed for Branch Insomnia. traZODone 0 Yes [id number] 50mg Take 1 [facility] 50 mg 8-25 tablet by [facility] of tablet 00:00: mouth at [place] 00 bedtime as Medical needed for Branch Insomnia. traZODone 0 Yes [id number] 50mg Take 1 [facility] 50 mg 8-25 tablet by [facility] of tablet 00:00: mouth at [place] 00 bedtime as Medical needed for Branch Insomnia. traZODone 0 Yes [id number] 50mg Take 1 [facility] 50 mg 8-25 tablet by [facility] of tablet 00:00: mouth at [place] 00 bedtime as Medical needed for Branch Insomnia. traZODone 0 Yes [id number] 50mg Take 1 [facility] 50 mg 8-25 tablet by [facility] of tablet 00:00: mouth at [place] bedtime as Medical needed for Branch Insomnia. traZODone 0 Yes [id number] 50mg Take 1 [facility] 50 mg 8-25 tablet by [facility] of tablet 00:00: mouth at [place] bedtime as Medical needed for Branch Insomnia. traZODone 0 Yes [id number] 50mg Take 1 [facility] 50 mg 8-25 tablet by [facility] of tablet 00:00: mouth at [place] 00 bedtime as Medical needed for Branch Insomnia. traZODone 0 Yes [id number] 50mg Take 1 [facility] 50 mg 8-25 tablet by [facility] of tablet 00:00: mouth at [place] bedtime as Medical needed for Branch Insomnia. traZODone 0 Yes [id number] 50mg Take 1 [facility] 50 mg 8-25 tablet by [facility] of tablet 00:00: mouth at [place] 00 bedtime as Medical needed for Branch Insomnia. traZODone 0 Yes [id number] 50mg Take 1 [facility] 50 mg 8-25 tablet by [facility] of tablet 00:00: mouth at [place] 00 bedtime as Medical needed for Branch Insomnia. traZODone 0 Yes [id number] 50mg Take 1 [facility] 50 mg 8-25 tablet by [facility] of tablet 00:00: mouth at [place] 00 bedtime as Medical needed for Branch Insomnia. traZODone 0 Yes [id number] 50mg Take 1 [facility] 50 mg 8-25 tablet by [facility] of tablet 00:00: mouth at [place] 00 bedtime as Medical needed for Branch Insomnia. traZODone 0 Yes [id number] 50mg Take 1 [facility] 50 mg 8-25 tablet by [facility] of tablet 00:00: mouth at [place] 00 bedtime as Medical needed for Branch Insomnia. traZODone 0 Yes [id number] 50mg Take 1 [facility] 50 mg 8-25 tablet by [facility] of tablet 00:00: mouth at [place] 00 bedtime as Medical needed for Branch Insomnia. traZODone 0 Yes [id number] 50mg Take 1 [facility] 50 mg 8-25 tablet by [facility] of tablet 00:00: mouth at [place] 00 bedtime as Medical needed for Branch Insomnia. traZODone 0 Yes [id number] 50mg Take 1 [facility] 50 mg 8-25 tablet by [facility] of tablet 00:00: mouth at [place] [id number] bedtime as Medical needed for Branch Insomnia. traZODone 0 Yes [id number] 50mg Take 1 [facility] 50 mg 8-25 tablet by [facility] tablet 00:00: mouth at [place] [address] bedtime as Medical needed for Branch Insomnia. traZODone 0 Yes [id number] 50mg Take 1 [facility] 50 mg 8-25 tablet by [facility] of tablet 00:00: mouth at [place] [address] bedtime as Medical needed for Branch Insomnia. traZODone 0 Yes [id number] 50mg Take 1 [facility] 50 mg 8-25 tablet by [facility] tablet 00:00: mouth at [place] 00 bedtime as Medical needed for [facility] Insomnia. traZODone 0 Yes [id number] 50mg Take 1 [facility] 50 mg 8-25 tablet by [facility] tablet 00:00: mouth at [place] [address] bedtime as Medical needed for [facility] Insomnia. traZODone 0 Yes [id number] 50mg Take 1 [facility] 50 mg 8-25 tablet by [facility] tablet 00:00: mouth at [place] [address] bedtime as Medical needed for [facility] Insomnia. traZODone 0 Yes [id number] 50mg Take 1 [facility] 50 mg 8-25 tablet by [facility] tablet 00:00: mouth at [place] 00 bedtime as Medical needed for [facility] Insomnia. traZODone 0 Yes [id number] 50mg Take 1 [facility] 50 mg 8-25 tablet by [facility] tablet 00:00: mouth at [place] 00 bedtime as Medical needed for [facility] Insomnia. traZODone 0 Yes [id number] 50mg Take 1 [facility] 50 mg 8-25 tablet by [facility] tablet 00:00: mouth at [place] 00 bedtime as Medical needed for [facility] Insomnia. traZODone 0 Yes [id number] 50mg Take 1 [facility] 50 mg 8-25 tablet by [facility] tablet 00:00: mouth at [place] 00 bedtime as Medical needed for [facility] Insomnia. traZODone 0 Yes [id number] 50mg Take 1 [facility] 50 mg 8-25 tablet by [facility] tablet 00:00: mouth at [place] 00 bedtime as Medical needed for [facility] Insomnia. traZODone 0 Yes [id number] 50mg Take 1 [facility] 50 mg 8-25 tablet by [facility] tablet 00:00: mouth at [place] [address] bedtime as Medical needed for [facility] Insomnia. traZODone 0 Yes [id number] 50mg Take 1 [facility] 50 mg 8-25 tablet by [facility] tablet 00:00: mouth at [place] [address] bedtime as Medical needed for [facility] Insomnia. traZODone 0 Yes [id number] 50mg Take 1 [facility] 50 mg 8-25 tablet by [facility] tablet 00:00: mouth at [place] [address] bedtime as Medical needed for [facility] Insomnia. traZODone 0 Yes [id number] 50mg Take 1 [facility] 50 mg 8-25 tablet by [facility] tablet 00:00: mouth at [place] 00 bedtime as Medical needed for [facility] Insomnia. traZODone 0 Yes [id number] 50mg Take 1 [facility] 50 mg 8-25 tablet by [facility] tablet 00:00: mouth at [place] 00 bedtime as Medical needed for [facility] Insomnia. traZODone 0 Yes [id number] 50mg Take 1 [facility] 50 mg 8-25 tablet by [facility] tablet 00:00: mouth at [place] [address] bedtime as Medical needed for [facility] Insomnia. traZODone 0 Yes [id number] 50mg Take 1 [facility] 50 mg 8-25 tablet by [facility] tablet 00:00: mouth at [place] 00 bedtime as Medical needed for [facility] Insomnia. traZODone 0 Yes [id number] 50mg Take 1 [facility] 50 mg 8-25 tablet by [facility] tablet 00:00: mouth at [place] 00 bedtime as Medical needed for [facility] Insomnia. traZODone 0 Yes [id number] 50mg Take 1 [facility] 50 mg 8-25 tablet by [facility] tablet 00:00: mouth at [place] 00 bedtime as Medical needed for [facility] Insomnia. traZODone 0 Yes [id number] 50mg Take 1 [facility] 50 mg 8-25 tablet by [facility] tablet 00:00: mouth at [place] 00 bedtime as Medical needed for [facility] Insomnia. traZODone 0 Yes [id number] 50mg Take 1 [facility] 50 mg 8-25 tablet by [facility] tablet 00:00: mouth at [place] 00 bedtime as Medical needed for [facility] Insomnia. traZODone 0 Yes [id number] 50mg Take 1 [facility] 50 mg 8-25 tablet by [facility] tablet 00:00: mouth at [place] [address] bedtime as Medical needed for [facility] Insomnia. traZODone 0 Yes [id number] 50mg Take 1 [facility] 50 mg 8-25 tablet by [facility] tablet 00:00: mouth at [place] 00 bedtime as Medical needed for [facility] Insomnia. traZODone 0 Yes [id number] 50mg Take 1 [facility] 50 mg 8-25 tablet by [facility] tablet 00:00: mouth at [place] 00 bedtime as Medical needed for [facility] Insomnia. traZODone 0 Yes [id number] 50mg Take 1 [facility] 50 mg 8-25 tablet by [facility] tablet 00:00: mouth at [place] 00 bedtime as Medical needed for [facility] Insomnia. traZODone 2021-0 Yes [id number] 50mg Take 1 [facility] 50 mg 8-25 tablet by [facility] tablet 00:00: mouth at [place] [address] bedtime as Medical needed for [facility] Insomnia. traZODone 2021-0 Yes [id number] 50mg Take 1 [facility] 50 mg 8-25 tablet by [facility] tablet 00:00: mouth at [place] 00 bedtime as Medical needed for [facility] Insomnia. traZODone 0 Yes [id number] 50mg Take 1 [facility] 50 mg 8-25 tablet by [facility] tablet 00:00: mouth at [place] 00 bedtime as Medical needed for [facility] Insomnia. traZODone 0 Yes [id number] 50mg Take 1 [facility] 50 mg 8-25 tablet by [facility] tablet 00:00: mouth at [place] 00 bedtime as Medical needed for [facility] Insomnia. traZODone 0 Yes [id number] 50mg Take 1 [facility] 50 mg 8-25 tablet by [facility] tablet 00:00: mouth at [place] 00 bedtime as Medical needed for [facility] Insomnia. traZODone 0 Yes [id number] 50mg Take 1 [facility] 50 mg 8-25 tablet by [facility] tablet 00:00: mouth at [place] 00 bedtime as Medical needed for [facility] Insomnia. traZODone 0 Yes [id number] 50mg Take 1 [facility] 50 mg 8-25 tablet by [facility] tablet 00:00: mouth at [place] 00 bedtime as Medical needed for [facility] Insomnia. traZODone 0 Yes [id number] 50mg Take 1 [facility] 50 mg 8-25 tablet by [facility] 00:00: mouth at [place] 00 bedtime as Medical needed for [facility] Insomnia. traZODone 0 Yes [id number] 50mg Take 1 [facility] 50 mg 8-25 tablet by [facility] tablet 00:00: mouth at [place] bedtime as Medical needed for [facility] Insomnia. traZODone 0 Yes [id number] 50mg Take 1 [facility] 50 mg 8-25 tablet by [facility] tablet 00:00: mouth at [place] 00 bedtime as Medical needed for [facility] Insomnia. traZODone 0 Yes [id number] 50mg Take 1 [facility] 50 mg 8-25 tablet by [facility] tablet 00:00: mouth at [place] 00 bedtime as Medical needed for [facility] Insomnia. traZODone 0 Yes [id number] 50mg Take 1 [facility] 50 mg 8-25 tablet by [facility] tablet 00:00: mouth at [place] [address] bedtime as Medical needed for [facility] Insomnia. traZODone 0 Yes [id number] 50mg Take 1 [facility] 50 mg 8-25 tablet by [facility] tablet 00:00: mouth at [place] 00 bedtime as Medical needed for [facility] Insomnia. traZODone 0 Yes [id number] 50mg Take 1 [facility] 50 mg 8-25 tablet by [facility] tablet 00:00: mouth at [place] 00 bedtime as Medical needed for [facility] Insomnia. traZODone 0 Yes [id number] 50mg Take 1 [facility] 50 mg 8-25 tablet by [facility] tablet 00:00: mouth at [place] 00 bedtime as Medical needed for [facility] Insomnia. traZODone 0 Yes [id number] 50mg Take 1 [facility] 50 mg 8-25 tablet by [facility] tablet 00:00: mouth at [place] 00 bedtime as Medical needed for [facility] Insomnia. traZODone 0 Yes [id number] 50mg Take 1 [facility] 50 mg 8-25 tablet by [facility] tablet 00:00: mouth at [place] bedtime as Medical needed for [facility] Insomnia. traZODone 0 Yes [id number] 50mg Take 1 [facility] 50 mg 8-25 tablet by [facility] tablet 00:00: mouth at [place] [address] bedtime as Medical needed for [facility] Insomnia. traZODone 0 Yes [id number] 50mg Take 1 [facility] 50 mg 8-25 tablet by [facility] tablet 00:00: mouth at [place] bedtime as Medical needed for [facility] Insomnia. traZODone 0 Yes [id number] 50mg Take 1 [facility] 50 mg 8-25 tablet by [facility] tablet 00:00: mouth at [place] bedtime as Medical needed for [facility] Insomnia. traZODone 0 Yes [id number] 50mg Take 1 [facility] 50 mg 8-25 tablet by [facility] tablet 00:00: mouth at [place] 00 bedtime as Medical needed for [facility] Insomnia. traZODone 0 Yes [id number] 50mg Take 1 [facility] 50 mg 8-25 tablet by [facility] tablet 00:00: mouth at [place] 00 bedtime as Medical needed for [facility] Insomnia. traZODone 0 Yes [id number] 50mg Take 1 [facility] 50 mg 8-25 tablet by [facility] tablet 00:00: mouth at [place] 00 bedtime as Medical needed for [facility] Insomnia. traZODone 0 Yes [id number] 50mg Take 1 [facility] 50 mg 8-25 tablet by [facility] tablet 00:00: mouth at [place] 00 bedtime as Medical needed for [facility] Insomnia. traZODone 0 Yes [id number] 50mg Take 1 [facility] 50 mg 8-25 tablet by [facility] tablet 00:00: mouth at [place] 00 bedtime as Medical needed for [facility] Insomnia. traZODone 0 Yes [id number] 50mg Take 1 [facility] 50 mg 8-25 tablet by [facility] tablet 00:00: mouth at [place] 00 bedtime as Medical needed for [facility] Insomnia. traZODone 0 Yes [id number] 50mg Take 1 [facility] 50 mg 8-25 tablet by [facility] tablet 00:00: mouth at [place] 00 bedtime as Medical needed for [facility] Insomnia. traZODone Yes [id number] 50mg Take 1 [facility] 50 mg 8-25 tablet by [facility] tablet 00:00: mouth at [place] 00 bedtime as Medical needed for [facility] Insomnia. traZODone Yes [id number] 50mg Take 1 [facility] 50 mg 8-25 tablet by [facility] tablet 00:00: mouth at [place] [address] bedtime as Medical needed for [facility] Insomnia. traZODone 0 Yes [id number] 50mg Take 1 [facility] 50 mg 8-25 tablet by [facility] tablet 00:00: mouth at [place] [address] bedtime as Medical needed for [facility] Insomnia. traZODone Yes [id number] 50mg Take 1 [facility] 50 mg 8-25 tablet by [facility] tablet 00:00: mouth at [place] 00 bedtime as Medical needed for [facility] Insomnia. traZODone 0 Yes [id number] 50mg Take 1 [facility] 50 mg 8-25 tablet by [facility] tablet 00:00: mouth at [place] 00 bedtime as Medical needed for [facility] Insomnia. traZODone 0 Yes [id number] 50mg Take 1 [facility] 50 mg 8-25 tablet by [facility] tablet 00:00: mouth at [place] 00 bedtime as Medical needed for [facility] Insomnia. traZODone 0 Yes [id number] 50mg Take 1 [facility] 50 mg 8-25 tablet by [facility] tablet 00:00: mouth at [place] 00 bedtime as Medical needed for [facility] Insomnia. traZODone 0 Yes [id number] 50mg Take 1 [facility] 50 mg 8-25 tablet by [facility] tablet 00:00: mouth at [place] 00 bedtime as Medical needed for [facility] Insomnia. traZODone 0 Yes [id number] 50mg Take 1 [facility] 50 mg 8-25 tablet by [facility] tablet 00:00: mouth at [place] 00 bedtime as Medical needed for [facility] Insomnia. traZODone 0 Yes [id number] 50mg Take 1 [facility] 50 mg 8-25 tablet by [facility] tablet 00:00: mouth at [place] 00 bedtime as Medical needed for [facility] Insomnia. traZODone 0 Yes [id number] 50mg Take 1 [facility] 50 mg 8-25 tablet by [facility] tablet 00:00: mouth at [place] 00 bedtime as Medical needed for [facility] Insomnia. traZODone 0 Yes [id number] 50mg Take 1 [facility] 50 mg 8-25 tablet by [facility] tablet 00:00: mouth at [place] bedtime as Medical needed for [facility] Insomnia. traZODone 0 Yes [id number] 50mg Take 1 [facility] 50 mg 8-25 tablet by [facility] tablet 00:00: mouth at [place] 00 bedtime as Medical needed for [facility] Insomnia. traZODone 0 Yes [id number] 50mg Take 1 [facility] 50 mg 8-25 tablet by [facility] tablet 00:00: mouth at [place] bedtime as Medical needed for [facility] Insomnia. traZODone 0 Yes [id number] 50mg Take 1 [facility] 50 mg 8-25 tablet by [facility] tablet 00:00: mouth at [place] 00 bedtime as Medical needed for [facility] Insomnia. traZODone 0 Yes [id number] 50mg Take 1 [facility] 50 mg 8-25 tablet by [facility] tablet 00:00: mouth at [place] 00 bedtime as Medical needed for [facility] Insomnia. traZODone 2021-0 Yes [id number] 50mg Take 1 [facility] 50 mg 8-25 tablet by [facility] tablet 00:00: mouth at [place] [address] bedtime as Medical needed for [facility] Insomnia. traZODone 2021-0 Yes [id number] 50mg Take 1 [facility] 50 mg 8-25 tablet by [facility] tablet 00:00: mouth at [place] 00 bedtime as Medical needed for [facility] Insomnia. traZODone 0 Yes [id number] 50mg Take 1 [facility] 50 mg 8-25 tablet by [facility] tablet 00:00: mouth at [place] 00 bedtime as Medical needed for [facility] Insomnia. traZODone 0 Yes [id number] 50mg Take 1 [facility] 50 mg 8-25 tablet by [facility] tablet 00:00: mouth at [place] 00 bedtime as Medical needed for [facility] Insomnia. traZODone 0 Yes [id number] 50mg Take 1 [facility] 50 mg 8-25 tablet by [facility] tablet 00:00: mouth at [place] 00 bedtime as Medical needed for [facility] Insomnia. traZODone 0 Yes [id number] 50mg Take 1 [facility] 50 mg 8-25 tablet by [facility] tablet 00:00: mouth at [place] [address] bedtime as Medical needed for [facility] Insomnia. traZODone 0 Yes [id number] 50mg Take 1 [facility] 50 mg 8-25 tablet by [facility] tablet 00:00: mouth at [place] [address] bedtime as Medical needed for [facility] Insomnia. traZODone 0 Yes [id number] 50mg Take 1 [facility] 50 mg 8-25 tablet by [facility] tablet 00:00: mouth at [place] [address] bedtime as Medical needed for [facility] Insomnia. traZODone 0 Yes [id number] 50mg Take 1 [facility] 50 mg 8-25 tablet by [facility] tablet 00:00: mouth at [place] [address] bedtime as Medical needed for [facility] Insomnia. traZODone 0 Yes [id number] 50mg Take 1 [facility] 50 mg 8-25 tablet by [facility] tablet 00:00: mouth at [place] [address] bedtime as Medical needed for [facility] Insomnia. traZODone 2021-0 Yes [id number] 50mg Take 1 [facility] 50 mg 8-25 tablet by [facility] tablet 00:00: mouth at [place] 00 bedtime as Medical needed for [facility] Insomnia. traZODone 2021-0 Yes [id number] 50mg Take 1 [facility] 50 mg 8-25 tablet by [facility] tablet 00:00: mouth at [place] [address] bedtime as Medical needed for [facility] Insomnia. traZODone 2022-0 Yes [id number] 50mg Take 1 [facility] 50 mg 8-25 tablet by [facility] tablet 00:00: mouth at [place] 00 bedtime as Medical needed for [facility] Insomnia. traZODone 0 Yes [id number] 50mg Take 1 [facility] 50 mg 8-25 tablet by [facility] tablet 00:00: mouth at [place] 00 bedtime as Medical needed for [facility] Insomnia. traZODone 0 Yes [id number] 50mg Take 1 [facility] 50 mg 8-25 tablet by [facility] tablet 00:00: mouth at [place] 00 bedtime as Medical needed for [facility] Insomnia. traZODone 0 Yes [id number] 50mg Take 1 [facility] 50 mg 8-25 tablet by [facility] tablet 00:00: mouth at [place] 00 bedtime as Medical needed for [facility] Insomnia. traZODone Yes [id number] 50mg Take 1 [facility] 50 mg 8-25 tablet by [facility] tablet 00:00: mouth at [place] [address] bedtime as Medical needed for [facility] Insomnia. traZODone 0 Yes [id number] 50mg Take 1 [facility] 50 mg 8-25 tablet by [facility] tablet 00:00: mouth at [place] [address] bedtime as Medical needed for [facility] Insomnia. traZODone 0 Yes [id number] 50mg Take 1 [facility] 50 mg 8-25 tablet by [facility] tablet 00:00: mouth at [place] [address] bedtime as Medical needed for [facility] Insomnia. traZODone 0 Yes [id number] 50mg Take 1 [facility] 50 mg 8-25 tablet by [facility] tablet 00:00: mouth at [place] 00 bedtime as Medical needed for [facility] Insomnia. traZODone 0 Yes [id number] 50mg Take 1 [facility] 50 mg 8-25 tablet by [facility] tablet 00:00: mouth at [place] 00 bedtime as Medical needed for [facility] Insomnia. traZODone 0 Yes [id number] 50mg Take 1 [facility] 50 mg 8-25 tablet by [facility] tablet 00:00: mouth at [place] 00 bedtime as Medical needed for [facility] Insomnia. traZODone 0 Yes [id number] 50mg Take 1 [facility] 50 mg 8-25 tablet by [facility] tablet 00:00: mouth at [place] 00 bedtime as Medical needed for [facility] Insomnia. traZODone 0 Yes [id number] 50mg Take 1 [facility] 50 mg 8-25 tablet by [facility] tablet 00:00: mouth at [place] 00 bedtime as Medical needed for [facility] Insomnia. traZODone 0 Yes [id number] 50mg Take 1 [facility] 50 mg 8-25 tablet by [facility] tablet 00:00: mouth at [place] 00 bedtime as Medical needed for [facility] Insomnia. traZODone 0 Yes [id number] 50mg Take 1 [facility] 50 mg 8-25 tablet by [facility] tablet 00:00: mouth at [place] 00 bedtime as Medical needed for [facility] Insomnia. traZODone 0 Yes [id number] 50mg Take 1 [facility] 50 mg 8-25 tablet by [facility] tablet 00:00: mouth at [place] bedtime as Medical needed for [facility] Insomnia. traZODone Yes [id number] 50mg Take 1 [facility] 50 mg 8-25 tablet by [facility] tablet 00:00: mouth at [place] bedtime as Medical needed for [facility] Insomnia. traZODone 0 Yes [id number] 50mg Take 1 [facility] 50 mg 8-25 tablet by [facility] tablet 00:00: mouth at [place] [address] bedtime as Medical needed for [facility] Insomnia. traZODone 0 Yes [id number] 50mg Take 1 [facility] 50 mg 8-25 tablet by [facility] tablet 00:00: mouth at [place] bedtime as Medical needed for [facility] Insomnia. traZODone 0 Yes [id number] 50mg Take 1 [facility] 50 mg 8-25 tablet by [facility] tablet 00:00: mouth at [place] bedtime as Medical needed for [facility] Insomnia. traZODone 0 Yes [id number] 50mg Take 1 [facility] 50 mg 8-25 tablet by [facility] tablet 00:00: mouth at [place] 00 bedtime as Medical needed for [facility] Insomnia. traZODone 0 Yes [id number] 50mg Take 1 [facility] 50 mg 8-25 tablet by [facility] tablet 00:00: mouth at [place] [address] bedtime as Medical needed for [facility] Insomnia. traZODone 0 Yes [id number] 50mg Take 1 [facility] 50 mg 8-25 tablet by [facility] tablet 00:00: mouth at [place] 00 bedtime as Medical needed for [facility] Insomnia. traZODone 0 Yes [id number] 50mg Take 1 [facility] 50 mg 8-25 tablet by [facility] tablet 00:00: mouth at [place] 00 bedtime as Medical needed for [facility] Insomnia. traZODone 0 Yes [id number] 50mg Take 1 [facility] 50 mg 8-25 tablet by [facility] tablet 00:00: mouth at [place] 00 bedtime as Medical needed for [facility] Insomnia. traZODone 0 Yes [id number] 50mg Take 1 [facility] 50 mg 8-25 tablet by [facility] tablet 00:00: mouth at [place] 00 bedtime as Medical needed for [facility] Insomnia. traZODone 0 Yes [id number] 50mg Take 1 [facility] 50 mg 8-25 tablet by [facility] tablet 00:00: mouth at [place] bedtime as Medical needed for [facility] Insomnia. traZODone 0 Yes [id number] 50mg Take 1 [facility] 50 mg 8-25 tablet by [facility] tablet 00:00: mouth at [place] bedtime as Medical needed for [facility] Insomnia. traZODone 0 Yes [id number] 50mg Take 1 [facility] 50 mg 8-25 tablet by [facility] tablet 00:00: mouth at [place] bedtime as Medical needed for [facility] Insomnia. traZODone 0 Yes [id number] 50mg Take 1 [facility] 50 mg 8-25 tablet by [facility] tablet 00:00: mouth at [place] bedtime as Medical needed for [facility] Insomnia. traZODone 0 Yes [id number] 50mg Take 1 [facility] 50 mg 8-25 tablet by [facility] tablet 00:00: mouth at [place] 00 bedtime as Medical needed for [facility] Insomnia. traZODone 0 Yes [id number] 50mg Take 1 [facility] 50 mg 8-25 tablet by [facility] tablet 00:00: mouth at [place] 00 bedtime as Medical needed for [facility] Insomnia. traZODone 0 Yes [id number] 50mg Take 1 [facility] 50 mg 8-25 tablet by [facility] tablet 00:00: mouth at [place] bedtime as Medical needed for [facility] Insomnia. traZODone Yes [id number] 50mg Take 1 [facility] 50 mg 8-25 tablet by [facility] tablet 00:00: mouth at [place] 00 bedtime as Medical needed for [facility] Insomnia. traZODone 0 Yes [id number] 50mg Take 1 [facility] 50 mg 8-25 tablet by [facility] tablet 00:00: mouth at [place] 00 bedtime as Medical needed for [facility] Insomnia. traZODone Yes [id number] 50mg Take 1 [facility] 50 mg 8-25 tablet by [facility] tablet 00:00: mouth at [place] 00 bedtime as Medical needed for [facility] Insomnia. traZODone Yes [id number] 50mg Take 1 [facility] 50 mg 8-25 tablet by [facility] tablet 00:00: mouth at [place] 00 bedtime as Medical needed for [facility] Insomnia. traZODone Yes [id number] 50mg Take 1 [facility] 50 mg 8-25 tablet by [facility] tablet 00:00: mouth at [place] 00 bedtime as Medical needed for [facility] Insomnia. traZODone Yes [id number] 50mg Take 1 [facility] 50 mg 8-25 tablet by [facility] tablet 00:00: mouth at [place] 00 bedtime as Medical needed for [facility] Insomnia. traZODone 0 Yes [id number] 50mg Take 1 [facility] 50 mg 8-25 tablet by [facility] tablet 00:00: mouth at [place] 00 bedtime as Medical needed for [facility] Insomnia. traZODone Yes [id number] 50mg Take 1 [facility] 50 mg 8-25 tablet by [facility] tablet 00:00: mouth at [place] 00 bedtime as Medical needed for [facility] Insomnia. traZODone 0 Yes [id number] 50mg Take 1 [facility] 50 mg 8-25 tablet by [facility] tablet 00:00: mouth at [place] 00 bedtime as Medical needed for [facility] Insomnia. traZODone Yes 1{tbl} QD Take 1 [facility] ([facility]) 8-25 tablet (50 st 50 MG 00:00: mg total) [facility] by mouth l nightly as needed. busPIRone No [id number] 10mg Take 1 [facility] nivers 10 mg 8-25 10-10 tablet by [facility] tablet 00:00: 04:59 mouth 2 [place] 00 :00 (two) Medical times [facility] daily as needed for Other (anxiety) for up to 45 days. busPIRone 2021- No [id number] 10mg Take 1 [facility] 10 mg 8-25 10-10 tablet by [facility] tablet 00:00: 04:59 mouth 2 [place] 00 :00 (two) Medical times [facility] daily as needed for Other (anxiety) for up to 45 days. busPIRone 2021- No [id number] 10mg Take 1 [facility] 10 mg 8-25 10-10 tablet by [facility] tablet 00:00: 04:59 mouth 2 [place] 00 :00 (two) Medical times [facility] daily as needed for Other (anxiety) for up to 45 days. busPIRone 2021- No [id number] 10mg Take 1 [facility] 10 mg 8-25 10-10 tablet by [facility] tablet 00:00: 04:59 mouth 2 [place] 00 :00 (two) Medical times [facility] daily as needed for Other (anxiety) for up to 45 days. busPIRone 2021- No [id number] 10mg Take 1 [facility] 10 mg 8-25 10-10 tablet by [facility] tablet 00:00: 04:59 mouth 2 [place] 00 :00 (two) Medical times [facility] daily as needed for Other (anxiety) for up to 45 days. pantoprazol 2021- No [id number] 40mg Take 1 [facility] 40 mg EC 6-27 08-25 tablet by [facility] tablet 00:00: 00:00 mouth [place] 00 :00 daily. Medical [facility] pantoprazol Yes [id number] 40mg Take 1 [facility] n[facility] e 40 mg EC 6-16 tablet by [facility] tablet 00:00: mouth [place] 00 daily. [facility] pantoprazol 0 Yes [id number] 40mg Take 1 [facility] e 40 mg EC 6-16 tablet by [facility] tablet 00:00: mouth [place] 00 daily. [facility] pantoprazol Yes [id number] 40mg Take 1 [facility] e 40 mg EC 6-16 tablet by [facility] tablet 00:00: mouth [place] 00 daily. [facility] pantoprazol 2022-0 Yes [id number] 40mg Take 1 [facility] e 40 mg EC 6-16 tablet by [facility] tablet 00:00: mouth [place] 00 daily. [facility] pantoprazol 2021-0 Yes [id number] 40mg Take 1 [facility] e 40 mg EC 6-16 tablet by [facility] tablet 00:00: mouth [place] 00 daily. [facility] pantoprazol 2021-0 Yes [id number] 40mg Take 1 [facility] e 40 mg EC 6-16 tablet by [facility] tablet 00:00: mouth [place] 00 daily. [facility] pantoprazol 2021-0 Yes [id number] 40mg Take 1 [facility] e 40 mg EC 6-16 tablet by [facility] tablet 00:00: mouth [place] 00 daily. [facility] pantoprazol 2021-0 Yes [id number] 40mg Take 1 [facility] e 40 mg EC 6-16 tablet by [facility] tablet 00:00: mouth [place] 00 daily. [facility] pantoprazol 2021-0 Yes [id number] 40mg Take 1 [facility] e 40 mg EC 6-16 tablet by [facility] tablet 00:00: mouth [place] 00 daily. [facility] pantoprazol 2021-0 Yes [id number] 40mg Take 1 [facility] e 40 mg EC 6-16 tablet by [facility] tablet 00:00: mouth [place] 00 daily. [facility] pantoprazol 2021-0 Yes [id number] 40mg Take 1 [facility] e 40 mg EC 6-16 tablet by [facility] tablet 00:00: mouth [place] 00 daily. [facility] pantoprazol 2021-0 Yes [id number] 40mg Take 1 [facility] e 40 mg EC 6-16 tablet by [facility] tablet 00:00: mouth [place] 00 daily. [facility] pantoprazol 2021-0 Yes [id number] 40mg Take 1 [facility] e 40 mg EC 6-16 tablet by [facility] tablet 00:00: mouth [place] 00 daily. [facility] pantoprazol 2021-0 Yes [id number] 40mg Take 1 [facility] e 40 mg EC 6-16 tablet by [facility] tablet 00:00: mouth [place] 00 daily. [facility] pantoprazol 2021-0 Yes [id number] 40mg Take 1 [facility] e 40 mg EC 6-16 tablet by [facility] tablet 00:00: mouth [place] 00 daily. [facility] pantoprazol 2021-0 Yes [id number] 40mg Take 1 [facility] e 40 mg EC 6-16 tablet by [facility] tablet 00:00: mouth [place] 00 daily. [facility] pantoprazol 2021-0 Yes [id number] 40mg Take 1 [facility] e 40 mg EC 6-16 tablet by [facility] tablet 00:00: mouth [place] 00 daily. [facility] pantoprazol 2021-0 Yes [id number] 40mg Take 1 [facility] e 40 mg EC 6-16 tablet by [facility] tablet 00:00: mouth [place] 00 daily. [facility] pantoprazol 2021-0 Yes [id number] 40mg Take 1 [facility] e 40 mg EC 6-16 tablet by [facility] tablet 00:00: mouth [place] 00 daily. [facility] pantoprazol 2021-0 Yes [id number] 40mg Take 1 [facility] e 40 mg EC 6-16 tablet by [facility] tablet 00:00: mouth [place] 00 daily. [facility] pantoprazol 2021-0 Yes [id number] 40mg Take 1 [facility] e 40 mg EC 6-16 tablet by [facility] tablet 00:00: mouth [place] 00 daily. [facility] pantoprazol 2021-0 Yes [id number] 40mg Take 1 [facility] e 40 mg EC 6-16 tablet by [facility] tablet 00:00: mouth [place] 00 daily. [facility] pantoprazol 2021-0 Yes [id number] 40mg Take 1 [facility] e 40 mg EC 6-16 tablet by [facility] tablet 00:00: mouth [place] 00 daily. [facility] pantoprazol 2021-0 Yes [id number] 40mg Take 1 [facility] e 40 mg EC 6-16 tablet by [facility] tablet 00:00: mouth [place] 00 daily. [facility] pantoprazol 2021-0 Yes [id number] 40mg Take 1 [facility] e 40 mg EC 6-16 tablet by [facility] tablet 00:00: mouth [place] 00 daily. [facility] pantoprazol 2021-0 Yes [id number] 40mg Take 1 [facility] 40 mg EC 6-16 tablet by [facility] tablet 00:00: mouth [place] 00 daily. [facility] pantoprazol 2021-0 Yes [id number] 40mg Take 1 [facility] e 40 mg EC 6-16 tablet by [facility] tablet 00:00: mouth [place] 00 daily. [facility] pantoprazol 2021-0 Yes [id number] 40mg Take 1 [facility] 40 mg EC 6-16 tablet by [facility] tablet 00:00: mouth [place] 00 daily. [facility] pantoprazol 2021-0 Yes [id number] 40mg Take 1 [facility] e 40 mg EC 6-16 tablet by [facility] tablet 00:00: mouth [place] 00 daily. [facility] pantoprazol 2021-0 Yes [id number] 40mg Take 1 [facility] e 40 mg EC 6-16 tablet by [facility] tablet 00:00: mouth [place] 00 daily. [facility] pantoprazol 2021-0 Yes [id number] 40mg Take 1 [facility] e 40 mg EC 6-16 tablet by ity of tablet 00:00: mouth [place] 00 daily. [facility] pantoprazol 2021-0 Yes [id number] 40mg Take 1 [facility] 40 mg EC 6-16 tablet by ity of tablet 00:00: mouth [place] 00 daily. [facility] pantoprazol 2021-0 Yes [id number] 40mg Take 1 [facility] 40 mg EC 6-16 tablet by ity of tablet 00:00: mouth [place] 00 daily. [facility] pantoprazol 2021-0 Yes [id number] 40mg Take 1 [facility] 40 mg EC 6-16 tablet by ity of tablet 00:00: mouth [place] 00 daily. [facility] pantoprazol 2021-0 Yes [id number] 40mg Take 1 [facility] 40 mg EC 6-16 tablet by ity of tablet 00:00: mouth [place] 00 daily. [facility] pantoprazol 2021-0 Yes [id number] 40mg Take 1 [facility] 40 mg EC 6-16 tablet by ity of tablet 00:00: mouth [place] 00 daily. [facility] pantoprazol 2021-0 Yes [id number] 40mg Take 1 [facility] 40 mg EC 6-16 tablet by ity of tablet 00:00: mouth [place] 00 daily. [facility] pantoprazol 2021-0 Yes [id number] 40mg Take 1 [facility] 40 mg EC 6-16 tablet by ity of tablet 00:00: mouth [place] 00 daily. [facility] pantoprazol 2021-0 Yes [id number] 40mg Take 1 [facility] 40 mg EC 6-16 tablet by ity of tablet 00:00: mouth [place] 00 daily. [facility] pantoprazol 2021-0 Yes [id number] 40mg Take 1 [facility] 40 mg EC 6-16 tablet by ity of tablet 00:00: mouth [place] 00 daily. [facility] pantoprazol 2021-0 Yes [id number] 40mg Take 1 [facility] 40 mg EC 6-16 tablet by ity of tablet 00:00: mouth [place] 00 daily. [facility] pantoprazol 2021-0 Yes [id number] 40mg Take 1 [facility] 40 mg EC 6-16 tablet by ity of tablet 00:00: mouth [place] 00 daily. [facility] pantoprazol 2021-0 Yes [id number] 40mg Take 1 [facility] 40 mg EC 6-16 tablet by ity of tablet 00:00: mouth [place] 00 daily. [facility] pantoprazol 2021-0 Yes [id number] 40mg Take 1 [facility] 40 mg EC 6-16 tablet by it[facility] of tablet 00:00: mouth [place] 00 daily. [facility] pantoprazol 2021-0 Yes [id number] 40mg Take 1 [facility] 40 mg EC 6-16 tablet by ity of tablet 00:00: mouth [place] 00 daily. [facility] pantoprazol 2021-0 Yes [id number] 40mg Take 1 [facility] 40 mg EC 6-16 tablet by ity of tablet 00:00: mouth [place] 00 daily. [facility] pantoprazol 2021-0 Yes [id number] 40mg Take 1 [facility] 40 mg EC 6-16 tablet by ity of tablet 00:00: mouth [place] 00 daily. [facility] pantoprazol 2021-0 Yes [id number] 40mg Take 1 [facility] 40 mg EC 6-16 tablet by ity of tablet 00:00: mouth [place] 00 daily. [facility] pantoprazol 2021-0 Yes [id number] 40mg Take 1 [facility] 40 mg EC 6-16 tablet by ity of tablet 00:00: mouth [place] 00 daily. [facility] pantoprazol 2-0 Yes [id number] 40mg Take 1 [facility] 40 mg EC 6-16 tablet by it[facility] of tablet 00:00: mouth [place] 00 daily. [facility] pantoprazol 2-0 Yes [id number] 40mg Take 1 [facility] 40 mg EC 6-16 tablet by ity of tablet 00:00: mouth [place] 00 daily. [facility] pantoprazol 2021-0 Yes [id number] 40mg Take 1 [facility] 40 mg EC 6-16 tablet by ity of tablet 00:00: mouth [place] 00 daily. [facility] pantoprazol 2021-0 Yes [id number] 40mg Take 1 [facility] 40 mg EC 6-16 tablet by ity of tablet 00:00: mouth [place] 00 daily. [facility] pantoprazol 2021-0 Yes [id number] 40mg Take 1 [facility] 40 mg EC 6-16 tablet by ity of tablet 00:00: mouth [place] 00 daily. [facility] pantoprazol 2021-0 Yes [id number] 40mg Take 1 [facility] 40 mg EC 6-16 tablet by ity of tablet 00:00: mouth [place] 00 daily. [facility] pantoprazol 2021-0 Yes [id number] 40mg Take 1 [facility] 40 mg EC 6-16 tablet by ity of tablet 00:00: mouth [place] 00 daily. [facility] pantoprazol 2021-0 Yes [id number] 40mg Take 1 [facility] 40 mg EC 6-16 tablet by ity of tablet 00:00: mouth [place] 00 daily. [facility] pantoprazol 2021-0 Yes [id number] 40mg Take 1 [facility] 40 mg EC 6-16 tablet by ity of tablet 00:00: mouth [place] 00 daily. [facility] pantoprazol 2021-0 Yes [id number] 40mg Take 1 [facility] 40 mg EC 6-16 tablet by ity of tablet 00:00: mouth [place] 00 daily. [facility] pantoprazol 2021-0 Yes [id number] 40mg Take 1 [facility] 40 mg EC 6-16 tablet by ity of tablet 00:00: mouth [place] 00 daily. [facility] pantoprazol 2021-0 Yes [id number] 40mg Take 1 [facility] 40 mg EC 6-16 tablet by ity of tablet 00:00: mouth [place] 00 daily. [facility] pantoprazol 2021-0 Yes [id number] 40mg Take 1 [facility] 40 mg EC 6-16 tablet by it[facility] of tablet 00:00: mouth [place] 00 daily. [facility] pantoprazol 2021-0 Yes [id number] 40mg Take 1 [facility] 40 mg EC 6-16 tablet by ity of tablet 00:00: mouth [place] 00 daily. [facility] pantoprazol 2021-0 Yes [id number] 40mg Take 1 [facility] 40 mg EC 6-16 tablet by ity of tablet 00:00: mouth [place] 00 daily. [facility] pantoprazol 2021-0 Yes [id number] 40mg Take 1 [facility] 40 mg EC 6-16 tablet by ity of tablet 00:00: mouth [place] 00 daily. [facility] pantoprazol 2021-0 Yes [id number] 40mg Take 1 [facility] 40 mg EC 6-16 tablet by ity of tablet 00:00: mouth [place] 00 daily. [facility] pantoprazol 2021-0 Yes [id number] 40mg Take 1 [facility] 40 mg EC 6-16 tablet by ity of tablet 00:00: mouth [place] 00 daily. [facility] pantoprazol 2021-0 Yes [id number] 40mg Take 1 [facility] 40 mg EC 6-16 tablet by ity of tablet 00:00: mouth [place] 00 daily. [facility] pantoprazol 2021-0 Yes [id number] 40mg Take 1 [facility] 40 mg EC 6-16 tablet by ity of tablet 00:00: mouth [place] 00 daily. [facility] pantoprazol 2021-0 Yes [id number] 40mg Take 1 [facility] 40 mg EC 6-16 tablet by ity of tablet 00:00: mouth [place] 00 daily. [facility] pantoprazol 2021-0 Yes [id number] 40mg Take 1 [facility] 40 mg EC 6-16 tablet by ity of tablet 00:00: mouth [place] 00 daily. [facility] pantoprazol 2021-0 Yes [id number] 40mg Take 1 [facility] 40 mg EC 6-16 tablet by ity of tablet 00:00: mouth [place] 00 daily. [facility] pantoprazol 2021-0 Yes [id number] 40mg Take 1 [facility] 40 mg EC 6-16 tablet by ity of tablet 00:00: mouth [place] 00 daily. [facility] pantoprazol 2021-0 Yes [id number] 40mg Take 1 [facility] 40 mg EC 6-16 tablet by ity of tablet 00:00: mouth [place] 00 daily. [facility] pantoprazol 2021-0 Yes [id number] 40mg Take 1 [facility] 40 mg EC 6-16 tablet by ity of tablet 00:00: mouth [place] 00 daily. [facility] pantoprazol Yes [id number] 40mg Take 1 [facility] 40 mg EC 6-16 tablet by ity of tablet 00:00: mouth [place] 00 daily. [facility] pantoprazol Yes [id number] 40mg Take 1 [facility] 40 mg EC 6-16 tablet by ity of tablet 00:00: mouth [place] 00 daily. [facility] pantoprazol Yes [id number] 40mg Take 1 [facility] 40 mg EC 6-16 tablet by ity of tablet 00:00: mouth [place] 00 daily. [facility] pantoprazol Yes [id number] 40mg Take 1 [facility] n[facility] 40 mg EC 6-16 tablet by ity of tablet 00:00: mouth [place] 00 daily. [facility] pantoprazol Yes [id number] 40mg Take 1 [facility] n[facility] 40 mg EC 6-16 tablet by ity of tablet 00:00: mouth [place] 00 daily. [facility] pantoprazol Yes [id number] 40mg Take 1 [facility] n[facility] e 40 mg EC 6-16 tablet by ity of tablet 00:00: mouth [place] 00 daily. [facility] pantoprazol 2022- No [id number] 40mg Take 1 [facility] e 40 mg EC 6-16 03- tablet by ity of tablet 00:00: 00:00 mouth [place] 00 :00 daily. [facility] pantoprazol 2022- No [id number] 40mg Take 1 [facility] e 40 mg EC 6-16 - tablet by ity of tablet 00:00: 00:00 mouth [place] 00 :00 daily. Medical Branch scopolamine 2- No [id number] 1.5mg Apply 1 [facility] transdermal 03-02 Patch to ity of 1 mg over 3 00:00: 00:00 skin every days patch 00 :00 72 Medical (seventy-t Branch wo) hours. clotrimazol 2021- No [id number] Apply to [facility] e-betametha 03-01 area(s) 2 it y of sone 00:00: 00:00 (two) [place] (LOTRISONE) 00 :00 times Medical cream daily. Branch methylPREDN 2021- No [id number] Take by [facility] ISolone 5-10 08-25 mouth ity of (MEDROL, 00:00: 00:00 SEE-INSTRU [place] MIKE,) 4 mg 00 :00 CTIONS. Medica l tablets follow Branch package directions bromphenira 2021- No [id number] 10mL Take 10 mL [facility] mine-pseudo 5-10 -25 by mouth 4 i ty of ephedrine-D 00:00: 00:00 (four) [place] as M (BROMFED 00 :00 times Medical DM) 2-30-10 daily as Bran ch mg/5 mL needed for syrup Congestion /Allergies or Cold symptoms. albuterol 2021- No [id number] 2{puff} Inhale 2 [facility] 90 5-10 08-25 Puffs ity of mcg/actuati 00:00: 00:00 every 6 [place] on inhaler 00 :00 (six) Medical hours as Branch needed for Wheezing, Shortness of Breath or Chest tightness. azelastine- 2021- No [id number] 1{spray Use 1 [facility] fluticasone 5-10 -25 } [place] in ity of 137-50 00:00: 00:00 each [place] mcg/spray 00 :00 nostril 2 Medic al nasal spray (two) Branch times daily. promethazin 2021- No [id number] 5mL Take 5 mL [facility] e-dextromet 5-07 03-25 by mouth ity of horphan 00:00: 00:00 every 4 [place] 6.25-15 00 :00 (four) Medical mg/5 mL hours as Branch syrup needed for Cough or Cold symptoms. diclofenac Yes [id number] 75mg Take 1 [facility] 75 mg EC 5-09 tablet by ity of tablet 00:00: mouth 2 [place] 00 (two) Medical times Branch daily with meals. diclofenac Yes [id number] 75mg Take 1 [facility] 75 mg EC 5-09 tablet by ity of tablet 00:00: mouth 2 [place] 00 (two) Medical times Branch daily with meals. diclofenac 2021- Yes [id number] 75mg Take 1 [facility] 75 mg EC 5-09 tablet by ity of tablet 00:00: mouth (two) Medical times Branch daily with meals. diclofenac 2022-0 Yes [id number] 75mg Take 1 [facility] 75 mg EC 5-09 tablet by ity of tablet 00:00: mouth [place] (two) Medical times Branch daily with meals. diclofenac 2022-0 Yes [id number] 75mg Take 1 [facility] 75 mg EC 5-09 tablet by ity of tablet 00:00: mouth [place] (two) Medical times Branch daily with meals. diclofenac 2022-0 Yes [id number] 75mg Take 1 [facility] 75 mg EC 5-09 tablet by ity of tablet 00:00: mouth [place] (two) Medical times Branch daily with meals. diclofenac 2022-0 Yes [id number] 75mg Take 1 [facility] 75 mg EC 5-09 tablet by ity of tablet 00:00: mouth (two) Medical times Branch daily with meals. diclofenac 2022-0 Yes [id number] 75mg Take 1 [facility] 75 mg EC 5-09 tablet by ity of tablet 00:00: mouth (two) Medical times Branch daily with meals. diclofenac 2022-0 Yes [id number] 75mg Take 1 [facility] 75 mg EC 5-09 tablet by ity of tablet 00:00: mouth [place] (two) Medical times Branch daily with meals. diclofenac 2022-0 Yes [id number] 75mg Take 1 [facility] 75 mg EC 5-09 tablet by ity of tablet 00:00: mouth [place] (two) Medical times Branch daily with meals. diclofenac 2022-0 Yes [id number] 75mg Take 1 [facility] 75 mg EC 5-09 tablet by ity of tablet 00:00: mouth [place] (two) Medical times Branch daily with meals. diclofenac 2022-0 Yes [id number] 75mg Take 1 [facility] 75 mg EC 5-09 tablet by ity of tablet 00:00: mouth [place] (two) Medical times Branch daily with meals. diclofenac 2022-0 Yes [id number] 75mg Take 1 [facility] 75 mg EC 5-09 tablet by ity of tablet 00:00: mouth [place] (two) Medical times Branch daily with meals. diclofenac 2022-0 Yes [id number] 75mg Take 1 [facility] 75 mg EC 5-09 tablet by ity of tablet 00:00: mouth [place] (two) Medical times Branch daily with meals. diclofenac 2022-0 Yes [id number] 75mg Take 1 [facility] 75 mg EC 5-09 tablet by ity of tablet 00:00: mouth [place] (two) Medical times Branch daily with meals. diclofenac 2022-0 Yes [id number] 75mg Take 1 [facility] 75 mg EC 5-09 tablet by ity of tablet 00:00: mouth [place] (two) Medical times Branch daily with meals. diclofenac 2022-0 Yes [id number] 75mg Take 1 [facility] 75 mg EC 5-09 tablet by ity of tablet 00:00: mouth [place] (two) Medical times Branch daily with meals. diclofenac 2022-0 Yes [id number] 75mg Take 1 [facility] 75 mg EC 5-09 tablet by ity of tablet 00:00: mouth [place] (two) Medical times Branch daily with meals. diclofenac 2022-0 Yes [id number] 75mg Take 1 [facility] 75 mg EC 5-09 tablet by ity of tablet 00:00: [facility] [place] (two) Medical times Branch daily with meals. diclofenac 2022-0 Yes [id number] 75mg Take 1 [facility] 75 mg EC 5-09 tablet by ity of tablet 00:00: mouth [place] (two) Medical times Branch daily with meals. diclofenac 2022-0 Yes [id number] 75mg Take 1 [facility] 75 mg EC 5-09 tablet by ity of tablet 00:00: mouth [place] (two) Medical times Branch daily with meals. diclofenac 2022-0 Yes [id number] 75mg Take 1 [facility] 75 mg EC 5-09 tablet by ity of tablet 00:00: mouth [place] (two) Medical times Branch daily with meals. diclofenac 2022-0 Yes [id number] 75mg Take 1 [facility] 75 mg EC 5-09 tablet by ity of tablet 00:00: mouth [place] (two) Medical times Branch daily with meals. diclofenac 2022-0 Yes [id number] 75mg Take 1 [facility] 75 mg EC 5-09 tablet by ity of tablet 00:00: mouth [place] (two) Medical times Branch daily with meals. diclofenac 2022-0 Yes [id number] 75mg Take 1 [facility] 75 mg EC 5-09 tablet by ity of tablet 00:00: mouth [place] (two) Medical times Branch daily with meals. diclofenac 2022-0 Yes [id number] 75mg Take 1 [facility] 75 mg EC 5-09 tablet by ity of tablet 00:00: mouth [place] (two) Medical times Branch daily with meals. diclofenac 2022-0 Yes [id number] 75mg Take 1 [facility] 75 mg EC 5-09 tablet by ity of tablet 00:00: mouth [place] (two) Medical times Branch daily with meals. diclofenac 2022-0 Yes [id number] 75mg Take 1 [facility] 75 mg EC 5-09 tablet by ity of tablet 00:00: mouth (two) Medical times Branch daily with meals. diclofenac 2022-0 Yes [id number] 75mg Take 1 [facility] 75 mg EC 5-09 tablet by ity of tablet 00:00: mouth [place] (two) Medical times Branch daily with meals. diclofenac 2022-0 Yes [id number] 75mg Take 1 [facility] 75 mg EC 5-09 tablet by ity of tablet 00:00: mouth [place] (two) Medical times Branch daily with meals. diclofenac 2022-0 Yes [id number] 75mg Take 1 [facility] 75 mg EC 5-09 tablet by ity of tablet 00:00: mouth [place] (two) Medical times Branch daily with meals. diclofenac 2022-0 Yes [id number] 75mg Take 1 [facility] 75 mg EC 5-09 tablet by ity of tablet 00:00: mouth [place] (two) Medical times Branch daily with meals. diclofenac 2022-0 Yes [id number] 75mg Take 1 [facility] 75 mg EC 5-09 tablet by ity of tablet 00:00: mouth [place] (two) Medical times Branch daily with meals. diclofenac 2022-0 Yes [id number] 75mg Take 1 [facility] 75 mg EC 5-09 tablet by ity of tablet 00:00: mouth [place] (two) Medical times Branch daily with meals. diclofenac 2022-0 Yes [id number] 75mg Take 1 [facility] 75 mg EC 5-09 tablet by ity of tablet 00:00: mouth [place] (two) Medical times Branch daily with meals. diclofenac 2022-0 Yes [id number] 75mg Take 1 [facility] 75 mg EC 5-09 tablet by ity of tablet 00:00: mouth [place] (two) Medical times Branch daily with meals. diclofenac 2022-0 Yes [id number] 75mg Take 1 [facility] 75 mg EC 5-09 tablet by ity of tablet 00:00: mouth (two) Medical times Branch daily with meals. diclofenac 2022-0 Yes [id number] 75mg Take 1 [facility] 75 mg EC 5-09 tablet by ity of tablet 00:00: mouth (two) Medical times Branch daily with meals. diclofenac 2022-0 Yes [id number] 75mg Take 1 [facility] 75 mg EC 5-09 tablet by ity of tablet 00:00: mouth (two) Medical times Branch daily with meals. diclofenac 2022-0 Yes [id number] 75mg Take 1 [facility] 75 mg EC 5-09 tablet by ity of tablet 00:00: mouth (two) Medical times Branch daily with meals. diclofenac 2022-0 Yes [id number] 75mg Take 1 [facility] 75 mg EC 5-09 tablet by ity of tablet 00:00: mouth [place] (two) Medical times Branch daily with meals. diclofenac 2022-0 Yes [id number] 75mg Take 1 [facility] 75 mg EC 5-09 tablet by ity of tablet 00:00: mouth (two) Medical times Branch daily with meals. diclofenac 2022-0 Yes [id number] 75mg Take 1 [facility] 75 mg EC 5-09 tablet by ity of tablet 00:00: mouth (two) Medical times Branch daily with meals. diclofenac 2022-0 Yes [id number] 75mg Take 1 [facility] 75 mg EC 5-09 tablet by ity of tablet 00:00: mouth [place] (two) Medical times Branch daily with meals. diclofenac 2022-0 Yes [id number] 75mg Take 1 [facility] 75 mg EC 5-09 tablet by ity of tablet 00:00: mouth (two) Medical times Branch daily with meals. diclofenac 2022-0 Yes [id number] 75mg Take 1 [facility] 75 mg EC 5-09 tablet by ity of tablet 00:00: mouth (two) Medical times Branch daily with meals. diclofenac 2022-0 Yes [id number] 75mg Take 1 [facility] 75 mg EC 5-09 tablet by ity of tablet 00:00: mouth (two) Medical times Branch daily with meals. diclofenac 2022-0 Yes [id number] 75mg Take 1 [facility] 75 mg EC 5-09 tablet by ity of tablet 00:00: mouth [place] (two) Medical times Branch daily with meals. diclofenac 2022-0 Yes [id number] 75mg Take 1 [facility] 75 mg EC 5-09 tablet by ity of tablet 00:00: mouth [place] (two) Medical times Branch daily with meals. diclofenac 2022-0 Yes [id number] 75mg Take 1 [facility] 75 mg EC 5-09 tablet by ity of tablet 00:00: mouth [place] (two) Medical times Branch daily with meals. diclofenac 2022-0 Yes [id number] 75mg Take 1 [facility] 75 mg EC 5-09 tablet by ity of tablet 00:00: mouth [place] (two) Medical times Branch daily with meals. diclofenac 2022-0 Yes [id number] 75mg Take 1 [facility] 75 mg EC 5-09 tablet by ity of tablet 00:00: mouth [place] (two) Medical times Branch daily with meals. diclofenac 2022-0 Yes [id number] 75mg Take 1 [facility] 75 mg EC 5-09 tablet by ity of tablet 00:00: mouth [place] (two) Medical times Branch daily with meals. diclofenac 2022-0 Yes [id number] 75mg Take 1 [facility] 75 mg EC 5-09 tablet by ity of tablet 00:00: mouth [place] (two) Medical times Branch daily with meals. diclofenac 2022-0 Yes [id number] 75mg Take 1 [facility] 75 mg EC 5-09 tablet by ity of tablet 00:00: mouth [place] (two) Medical times Branch daily with meals. diclofenac 2022-0 Yes [id number] 75mg Take 1 [facility] 75 mg EC 5-09 tablet by ity of tablet 00:00: mouth [place] (two) Medical times Branch daily with meals. diclofenac 2022-0 Yes [id number] 75mg Take 1 [facility] 75 mg EC 5-09 tablet by ity of tablet 00:00: mouth [place] (two) Medical times Branch daily with meals. diclofenac 2022-0 Yes [id number] 75mg Take 1 [facility] 75 mg EC 5-09 tablet by ity of tablet 00:00: mouth [place] (two) Medical times Branch daily with meals. diclofenac 2022-0 Yes [id number] 75mg Take 1 [facility] 75 mg EC 5-09 tablet by ity of tablet 00:00: mouth (two) Medical times Branch daily with meals. diclofenac 2021-0 Yes [id number] 75mg Take 1 [facility] 75 mg EC 5-09 tablet by ity of tablet 00:00: mouth 2 (two) Medical times Branch daily with meals. diclofenac 2021-0 Yes [id number] 75mg Take 1 [facility] 75 mg EC 5-09 tablet by ity of tablet 00:00: mouth 2 (two) Medical times Branch daily with meals. diclofenac 2021-0 3- No [id number] 75mg Take 1 [facility] 75 mg EC 5-09 02-06 tablet by ity o f tablet 00:00: 00:00 mouth 2 00 :00 (two) Medical times Branch daily with meals. diclofenac 2021-0 3- No [id number] 75mg Take 1 [facility] 75 mg EC 5-09 02-06 tablet by ity o f tablet 00:00: 00:00 mouth 2 00 :00 (two) Medical times Branch daily with meals. gabapentin 2021-0 2022- No 300mg Take 300 U nivers 300 mg 3-14 08-25 mg by ity of capsule 00:00: 00:00 mouth 3 00 :00 (three) Medical times Branch daily. naproxen 2021-0 Yes [id number] 500mg Take 1 [facility] 500 mg 2-08 [id number] tablet by ity of tablet 00:00: mouth (two) Medical times Branch daily as needed for Pain (scale 4-6). naproxen 2021-0 Yes [id number] 500mg Take 1 [facility] 500 mg 2-08 [id number] tablet by ity of tablet 00:00: mouth (two) Medical times Branch daily as needed for Pain (scale 4-6). naproxen 2021-0 Yes [id number] 500mg Take 1 [facility] 500 mg 2-08 [id number] tablet by ity of tablet 00:00: mouth 2 (two) Medical times Branch daily as needed for Pain (scale 4-6). naproxen 2021-0 Yes [id number] 500mg Take 1 [facility] 500 mg 2-08 [id number] tablet by ity of tablet 00:00: mouth 2 (two) Medical times Branch daily as needed for Pain (scale 4-6). naproxen 2-0 Yes [id number] 500mg Take 1 [facility] 500 mg 2-08 [id number] tablet by ity of tablet 00:00: mouth (two) Medical times Branch daily as needed for Pain (scale 4-6). naproxen 2022-0 Yes [id number] 500mg Take 1 [facility] 500 mg 2-08 [id number] tablet by ity of tablet 00:00: mouth (two) Medical times Branch daily as needed for Pain (scale 4-6). naproxen 2-0 Yes [id number] 500mg Take 1 [facility] 500 mg 2-08 [id number] tablet by ity of tablet 00:00: mouth (two) Medical times Branch daily as needed for Pain (scale 4-6). naproxen 2-0 Yes [id number] 500mg Take 1 [facility] 500 mg 2-08 [id number] tablet by ity of tablet 00:00: mouth (two) Medical times Branch daily as needed for Pain (scale 4-6). naproxen 2-0 Yes [id number] 500mg Take 1 [facility] 500 mg 2-08 [id number] tablet by ity of tablet 00:00: mouth (two) Medical times Branch daily as needed for Pain (scale 4-6). naproxen 2-0 Yes [id number] 500mg Take 1 [facility] 500 mg 2-08 [id number] tablet by ity of tablet 00:00: mouth (two) Medical times Branch daily as needed for Pain (scale 4-6). naproxen 2-0 Yes [id number] 500mg Take 1 [facility] 500 mg 2-08 [id number] tablet by ity of tablet 00:00: mouth (two) Medical times Branch daily as needed for Pain (scale 4-6). naproxen 2022-0 Yes [id number] 500mg Take 1 [facility] 500 mg 2-08 [id number] tablet by ity of tablet 00:00: mouth 2 (two) Medical times Branch daily as needed for Pain (scale 4-6). naproxen 2022-0 Yes [id number] 500mg Take 1 [facility] 500 mg 2-08 [id number] tablet by ity of tablet 00:00: mouth (two) Medical times Branch daily as needed for Pain (scale 4-6). naproxen 2-0 Yes [id number] 500mg Take 1 [facility] 500 mg 2-08 [id number] tablet by ity of tablet 00:00: mouth (two) Medical times Branch daily as needed for Pain (scale 4-6). naproxen 2022-0 Yes [id number] 500mg Take 1 [facility] 500 mg 2-08 [id number] tablet by ity of tablet 00:00: mouth (two) Medical times Branch daily as needed for Pain (scale 4-6). naproxen 2-0 Yes [id number] 500mg Take 1 [facility] 500 mg 2-08 [id number] tablet by ity of tablet 00:00: mouth (two) Medical times Branch daily as needed for Pain (scale 4-6). naproxen 2-0 Yes [id number] 500mg Take 1 [facility] 500 mg 2-08 [id number] tablet by ity of tablet 00:00: mouth (two) Medical times Branch daily as needed for Pain (scale 4-6). naproxen 2-0 Yes [id number] 500mg Take 1 [facility] 500 mg 2-08 [id number] tablet by ity of tablet 00:00: mouth (two) Medical times Branch daily as needed for Pain (scale 4-6). naproxen 2-0 Yes [id number] 500mg Take 1 [facility] 500 mg 2-08 [id number] tablet by ity of tablet 00:00: mouth (two) Medical times Branch daily as needed for Pain (scale 4-6). naproxen 2-0 Yes [id number] 500mg Take 1 [facility] 500 mg 2-08 [id number] tablet by ity of tablet 00:00: mouth (two) Medical times Branch daily as needed for Pain (scale 4-6). naproxen 2022-0 Yes [id number] 500mg Take 1 [facility] 500 mg 2-08 [id number] tablet by ity of tablet 00:00: mouth 2 (two) Medical times Branch daily as needed for Pain (scale 4-6). naproxen 2022-0 Yes [id number] 500mg Take 1 [facility] 500 mg 2-08 [id number] tablet by ity of tablet 00:00: mouth 2 [place] 00 (two) Medical times Branch daily as needed for Pain (scale 4-6). naproxen 2022-0 Yes [id number] 500mg Take 1 [facility] 500 mg 2-08 [id number] tablet by ity of tablet 00:00: mouth (two) Medical times Branch daily as needed for Pain (scale 4-6). naproxen 2022-0 Yes [id number] 500mg Take 1 [facility] 500 mg 2-08 [id number] tablet by ity of tablet 00:00: mouth (two) Medical times Branch daily as needed for Pain (scale 4-6). naproxen 2-0 Yes [id number] 500mg Take 1 [facility] 500 mg 2-08 [id number] tablet by ity of tablet 00:00: mouth (two) Medical times Branch daily as needed for Pain (scale 4-6). naproxen 2-0 Yes [id number] 500mg Take 1 [facility] 500 mg 2-08 [id number] tablet by ity of tablet 00:00: mouth (two) Medical times Branch daily as needed for Pain (scale 4-6). naproxen 2-0 Yes [id number] 500mg Take 1 [facility] 500 mg 2-08 [id number] tablet by ity of tablet 00:00: mouth (two) Medical times Branch daily as needed for Pain (scale 4-6). naproxen 2-0 Yes [id number] 500mg Take 1 [facility] 500 mg 2-08 [id number] tablet by ity of tablet 00:00: mouth (two) Medical times Branch daily as needed for Pain (scale 4-6). naproxen 2-0 Yes [id number] 500mg Take 1 [facility] 500 mg 2-08 [id number] tablet by ity of tablet 00:00: mouth (two) Medical times Branch daily as needed for Pain (scale 4-6). naproxen 2022-0 Yes [id number] 500mg Take 1 [facility] 500 mg 2-08 [id number] tablet by ity of tablet 00:00: mouth (two) Medical times Branch daily as needed for Pain (scale 4-6). naproxen 2022-0 Yes [id number] 500mg Take 1 [facility] 500 mg 2-08 [id number] tablet by ity of tablet 00:00: mouth (two) Medical times Branch daily as needed for Pain (scale 4-6). naproxen 2022-0 Yes [id number] 500mg Take 1 [facility] 500 mg 2-08 [id number] tablet by ity of tablet 00:00: mouth 2 (two) Medical times Branch daily as needed for Pain (scale 4-6). naproxen 2022-0 Yes [id number] 500mg Take 1 [facility] 500 mg 2-08 [id number] tablet by [facility] tablet 00:00: mouth 2 (two) Medical times Branch daily as needed for Pain (scale 4-6). naproxen 2-0 Yes [id number] 500mg Take 1 [facility] 500 mg 2-08 [id number] tablet by [facility] tablet 00:00: mouth (two) Medical times Branch daily as needed for Pain (scale 4-6). naproxen 2-0 Yes [id number] 500mg Take 1 [facility] 500 mg 2-08 [id number] tablet by [facility] tablet 00:00: mouth (two) Medical times Branch daily as needed for Pain (scale 4-6). naproxen 2-0 Yes [id number] 500mg Take 1 [facility] 500 mg 2-08 [id number] tablet by [facility] tablet 00:00: mouth (two) Medical times Branch daily as needed for Pain (scale 4-6). naproxen 2-0 Yes [id number] 500mg Take 1 [facility] 500 mg 2-08 [id number] tablet by [facility] of tablet 00:00: mouth (two) Medical times Branch daily as needed for Pain (scale 4-6). naproxen 2022-0 Yes [id number] 500mg Take 1 [facility] 500 mg 2-08 [id number] tablet by [facility] of tablet 00:00: mouth (two) Medical times Branch daily as needed for Pain (scale 4-6). naproxen 2022-0 Yes [id number] 500mg Take 1 [facility] 500 mg 2-08 [id number] tablet by [facility] of tablet 00:00: mouth 2 (two) Medical times Branch daily as needed for Pain (scale 4-6). naproxen 2022-0 Yes [id number] 500mg Take 1 [facility] 500 mg 2-08 [id number] tablet by [facility] of tablet 00:00: mouth (two) Medical times Branch daily as needed for Pain (scale 4-6). naproxen 2-0 Yes [id number] 500mg Take 1 [facility] 500 mg 2-08 [id number] tablet by [facility] of tablet 00:00: mouth 2 (two) Medical times Branch daily as needed for Pain (scale 4-6). naproxen 2021-0 Yes [id number] 500mg Take 1 [facility] 500 mg 2-08 [id number] tablet by [facility] of tablet 00:00: mouth 2 (two) Medical times Branch daily as needed for Pain (scale 4-6). naproxen 2021-0 Yes [id number] 500mg Take 1 [facility] 500 mg 2-08 [id number] tablet by [facility] of tablet 00:00: mouth (two) Medical times Branch daily as needed for Pain (scale 4-6). naproxen 2021-0 Yes [id number] 500mg Take 1 [facility] 500 mg 2-08 [id number] tablet by [facility] of tablet 00:00: mouth (two) Medical times Branch daily as needed for Pain (scale 4-6). naproxen 2021-0 Yes [id number] 500mg Take 1 [facility] 500 mg 2-08 [id number] tablet by [facility] of tablet 00:00: mouth (two) Medical times Branch daily as needed for Pain (scale 4-6). naproxen 2-0 Yes [id number] 500mg Take 1 [facility] 500 mg 2-08 [id number] tablet by [facility] of tablet 00:00: mouth (two) Medical times Branch daily as needed for Pain (scale 4-6). naproxen 2021-0 Yes [id number] 500mg Take 1 [facility] 500 mg 2-08 [id number] tablet by [facility] of tablet 00:00: mouth (two) Medical times Branch daily as needed for Pain (scale 4-6). naproxen 2022-0 Yes [id number] 500mg Take 1 [facility] 500 mg 2-08 [id number] tablet by [facility] of tablet 00:00: mouth 2 (two) Medical times Branch daily as needed for Pain (scale 4-6). naproxen 2022-0 Yes [id number] 500mg Take 1 [facility] 500 mg 2-08 [id number] tablet by [facility] of tablet 00:00: mouth 2 (two) Medical times Branch daily as needed for Pain (scale 4-6). naproxen 2021-0 Yes [id number] 500mg Take 1 [facility] 500 mg 2-08 [id number] tablet by [facility] of tablet 00:00: mouth 2 (two) Medical times Branch daily as needed for Pain (scale 4-6). naproxen 2021-0 Yes [id number] 500mg Take 1 [facility] 500 mg 2-08 [id number] tablet by [facility] of tablet 00:00: mouth 2 (two) Medical times Branch daily as needed for Pain (scale 4-6). naproxen 2021-0 Yes [id number] 500mg Take 1 [facility] 500 mg 2-08 [id number] tablet by [facility] of tablet 00:00: mouth (two) Medical times Branch daily as needed for Pain (scale 4-6). naproxen 2021-0 Yes [id number] 500mg Take 1 [facility] 500 mg 2-08 [id number] tablet by [facility] of tablet 00:00: mouth (two) Medical times Branch daily as needed for Pain (scale 4-6). naproxen 2021-0 Yes [id number] 500mg Take 1 [facility] 500 mg 2-08 [id number] tablet by [facility] tablet 00:00: mouth (two) Medical times Branch daily as needed for Pain (scale 4-6). naproxen 2021-0 Yes [id number] 500mg Take 1 [facility] 500 mg 2-08 [id number] tablet by [facility] of tablet 00:00: mouth (two) Medical times Branch daily as needed for Pain (scale 4-6). naproxen 2021-0 Yes [id number] 500mg Take 1 [facility] 500 mg 2-08 [id number] tablet by [facility] of tablet 00:00: mouth (two) Medical times Branch daily as needed for Pain (scale 4-6). naproxen 2-0 Yes [id number] 500mg Take 1 [facility] 500 mg 2-08 [id number] tablet by [facility] of tablet 00:00: mouth 2 (two) Medical times Branch daily as needed for Pain (scale 4-6). naproxen 2-0 Yes [id number] 500mg Take 1 [facility] 500 mg 2-08 [id number] tablet by [facility] of tablet 00:00: mouth 2 (two) Medical times Branch daily as needed for Pain (scale 4-6). naproxen 2021-0 Yes [id number] 500mg Take 1 [facility] 500 mg 2-08 [id number] tablet by [facility] of tablet 00:00: mouth 2 (two) Medical times Branch daily as needed for Pain (scale 4-6). naproxen 2021-0 Yes [id number] 500mg Take 1 [facility] 500 mg 2-08 [id number] tablet by [facility] of tablet 00:00: mouth (two) Medical times Branch daily as needed for Pain (scale 4-6). naproxen 2021-0 Yes [id number] 500mg Take 1 [facility] 500 mg 2-08 [id number] tablet by [facility] of tablet 00:00: mouth (two) Medical times Branch daily as needed for Pain (scale 4-6). naproxen 2021-0 Yes [id number] 500mg Take 1 [facility] 500 mg 2-08 [id number] tablet by [facility] of tablet 00:00: mouth (two) Medical times Branch daily as needed for Pain (scale 4-6). naproxen 2021-0 Yes [id number] 500mg Take 1 [facility] 500 mg 2-08 [id number] tablet by [facility] of tablet 00:00: mouth (two) Medical times Branch daily as needed for Pain (scale 4-6). naproxen 2021-0 Yes [id number] 500mg Take 1 [facility] 500 mg 2-08 [id number] tablet by [facility] of tablet 00:00: mouth (two) Medical times Branch daily as needed for Pain (scale 4-6). naproxen 2021-0 Yes [id number] 500mg Take 1 [facility] 500 mg 2-08 [id number] tablet by [facility] of tablet 00:00: mouth (two) Medical times Branch daily as needed for Pain (scale 4-6). naproxen 2-0 Yes [id number] 500mg Take 1 [facility] 500 mg 2-08 [id number] tablet by [facility] of tablet 00:00: mouth 2 (two) Medical times Branch daily as needed for Pain (scale 4-6). naproxen 2-0 Yes [id number] 500mg Take 1 [facility] 500 mg 11-03 [id number] tablet by [facility] of tablet 00:00: mouth 2 00 (two) Medical times Branch daily as needed for Pain (scale 4-6). naproxen 0 Yes [id number] 500mg Take 1 [facility] 500 mg 2- [id number] tablet by [facility] of tablet 00:00: mouth 2 [place] 00 (two) Medical times Branch daily as needed for Pain (scale 4-6). naproxen 0 Yes [id number] 500mg Take 1 [facility] 500 mg 2- [id number] tablet by [facility] of tablet 00:00: mouth 2 00 (two) Medical times Branch daily as needed for Pain (scale 4-6). naproxen 2022- No [id number] 500mg Take 1 [facility] 500 mg 11-03 [id number] tablet by [facility] o f tablet 00:00: 00:00 mouth 2 [place] 00 :00 (two) Medical times Branch daily as needed for Pain (scale 4-6). naproxen 2022- No [id number] 500mg Take 1 [facility] 500 mg 11-03 [id number] tablet by ity o f tablet 00:00: 00:00 mouth 2 [place] 00 :00 (two) Medical [...] 00:00: [place] solution 00 Medical Branch bimatoprost 2020-09- No Unive rs 0.03 % 1-08 03-06 [facility] of ophthalmic 00:00: 00:00 [place] solution 00 :00 Medical Branch bimatoprost 2020-09- No Un[facility] rs 0.03 % 1-08 03-06 [facility] ophthalmic 00:00: 00:00 [place] solution 00 :00 Medical Branch norethindro 2020-09 Yes [id number] 1{tbl} Take 1 [facility] ne-e.estrad 1-01 tablet by ity of ioL-iron 00:00: mouth [place] (LOESTRIN 00 daily. Medical FE ) Branch 1.5 mg-30 mcg (21)/75 mg (7) per tablet norethindro 2020-09 Yes [id number] 1{tbl} Take 1 [facility] ne-e.estrad 1-01 tablet by ity of ioL-iron 00:00: mouth [place] (LOESTRIN 00 daily. Medical FE ) Branch 1.5 mg-30 mcg (21)/75 mg (7) per tablet norethindro 2020-09 Yes [id number] 1{tbl} Take 1 [facility] ne-e.estrad 1-01 tablet by ity of ioL-iron 00:00: mouth [place] (LOESTRIN 00 daily. Medical FE ) Branch 1.5 mg-30 mcg (21)/75 mg (7) per tablet norethindro 2020-09 Yes [id number] 1{tbl} Take 1 [facility] ne-e.estrad 1-01 tablet by ity of ioL-iron 00:00: mouth [place] (LOESTRIN 00 daily. Medical FE ) Branch 1.5 mg-30 mcg (21)/75 mg (7) per tablet norethindro 2020-09 Yes [id number] 1{tbl} Take 1 [facility] ne-e.estrad 1-01 tablet by ity of ioL-iron 00:00: mouth [place] (LOESTRIN 00 daily. Medical FE ) Branch 1.5 mg-30 mcg (21)/75 mg (7) per tablet norethindro 2020-09 Yes [id number] 1{tbl} Take 1 [facility] ne-e.estrad 1-01 tablet by ity of ioL-iron 00:00: mouth [place] (LOESTRIN 00 daily. Medical FE ) Branch 1.5 mg-30 mcg (21)/75 mg (7) per tablet norethindro 2020-09 Yes [id number] 1{tbl} Take 1 [facility] ne-e.estrad 1-01 tablet by ity of ioL-iron 00:00: mouth [place] (LOESTRIN 00 daily. Medical FE ) Branch 1.5 mg-30 mcg (21)/75 mg (7) per tablet norethindro 2020-09 Yes [id number] 1{tbl} Take 1 [facility] ne-e.estrad 1-01 tablet by ity of ioL-iron 00:00: mouth [place] (LOESTRIN 00 daily. Medical FE ) Branch 1.5 mg-30 mcg (21)/75 mg (7) per tablet norethindro 2020-09 Yes [id number] 1{tbl} Take 1 [facility] ne-e.estrad 1-01 tablet by ity of ioL-iron 00:00: mouth [place] (LOESTRIN 00 daily. Medical FE ) Branch 1.5 mg-30 mcg (21)/75 mg (7) per tablet norethindro 2020-09 Yes [id number] 1{tbl} Take 1 [facility] ne-e.estrad 1-01 tablet by ity of ioL-iron 00:00: mouth [place] (LOESTRIN 00 daily. Medical FE ) Branch 1.5 mg-30 mcg (21)/75 mg (7) per tablet norethindro 2020-09 Yes [id number] 1{tbl} Take 1 [facility] ne-e.estrad 1-01 tablet by ity of ioL-iron 00:00: mouth [place] (LOESTRIN 00 daily. Medical FE ) Branch 1.5 mg-30 mcg (21)/75 mg (7) per tablet norethindro 2020-09 Yes [id number] 1{tbl} Take 1 [facility] ne-e.estrad 1-01 tablet by ity of ioL-iron 00:00: mouth [place] (LOESTRIN 00 daily. Medical FE ) Branch 1.5 mg-30 mcg (21)/75 mg (7) per tablet norethindro 2020-09 Yes [id number] 1{tbl} Take 1 [facility] ne-e.estrad 1-01 tablet by ity of ioL-iron 00:00: mouth [place] (LOESTRIN 00 daily. Medical FE ) Branch 1.5 mg-30 mcg (21)/75 mg (7) per tablet norethindro 2020-09 Yes [id number] 1{tbl} Take 1 [facility] ne-e.estrad 1-01 tablet by ity of ioL-iron 00:00: mouth [place] (LOESTRIN 00 daily. Medical FE ) Branch 1.5 mg-30 mcg (21)/75 mg (7) per tablet norethindro 2020-09 Yes [id number] 1{tbl} Take 1 [facility] ne-e.estrad 1-01 tablet by ity of ioL-iron 00:00: mouth [place] (LOESTRIN 00 daily. Medical FE ) Branch 1.5 mg-30 mcg (21)/75 mg (7) per tablet norethindro 2020-09 Yes [id number] 1{tbl} Take 1 [facility] ne-e.estrad 1-01 tablet by ity of ioL-iron 00:00: mouth [place] (LOESTRIN 00 daily. Medical FE ) Branch 1.5 mg-30 mcg (21)/75 mg (7) per tablet norethindro 2020-09 Yes [id number] 1{tbl} Take 1 [facility] ne-e.estrad 1-01 tablet by ity of ioL-iron 00:00: mouth [place] (LOESTRIN 00 daily. Medical FE ) Branch 1.5 mg-30 mcg (21)/75 mg (7) per tablet norethindro 2020-09 Yes [id number] 1{tbl} Take 1 [facility] ne-e.estrad 1-01 tablet by ity of ioL-iron 00:00: mouth [place] (LOESTRIN 00 daily. Medical FE ) Branch 1.5 mg-30 mcg (21)/75 mg (7) per tablet norethindro 2020-09 Yes [id number] 1{tbl} Take 1 [facility] ne-e.estrad 1-01 tablet by ity of ioL-iron 00:00: mouth [place] (LOESTRIN 00 daily. Medical FE ) Branch 1.5 mg-30 mcg (21)/75 mg (7) per tablet norethindro 2020-09 Yes [id number] 1{tbl} Take 1 [facility] ne-e.estrad 1-01 tablet by ity of ioL-iron 00:00: mouth [place] (LOESTRIN 00 daily. Medical FE ) Branch 1.5 mg-30 mcg (21)/75 mg (7) per tablet norethindro 2020-09 Yes [id number] 1{tbl} Take 1 [facility] ne-e.estrad 1-01 tablet by ity of ioL-iron 00:00: mouth [place] (LOESTRIN 00 daily. Medical FE ) Branch 1.5 mg-30 mcg (21)/75 mg (7) per tablet norethindro 2020-09 Yes [id number] 1{tbl} Take 1 [facility] ne-e.estrad 1-01 tablet by ity of ioL-iron 00:00: mouth [place] (LOESTRIN 00 daily. Medical FE ) Branch 1.5 mg-30 mcg (21)/75 mg (7) per tablet norethindro 2020-09 Yes [id number] 1{tbl} Take 1 [facility] ne-e.estrad 1-01 tablet by ity of ioL-iron 00:00: mouth [place] (LOESTRIN 00 daily. Medical FE ) Branch 1.5 mg-30 mcg (21)/75 mg (7) per tablet norethindro 2020-09 Yes [id number] 1{tbl} Take 1 [facility] ne-e.estrad 1-01 tablet by ity of ioL-iron 00:00: mouth [place] (LOESTRIN 00 daily. Medical FE ) Branch 1.5 mg-30 mcg (21)/75 mg (7) per tablet norethindro 2020-09 Yes [id number] 1{tbl} Take 1 [facility] ne-e.estrad 1-01 tablet by ity of ioL-iron 00:00: mouth [place] (LOESTRIN 00 daily. Medical FE ) Branch 1.5 mg-30 mcg (21)/75 mg (7) per tablet norethindro 2020-09 Yes [id number] 1{tbl} Take 1 [facility] ne-e.estrad 1-01 tablet by ity of ioL-iron 00:00: mouth [place] (LOESTRIN 00 daily. Medical FE ) Branch 1.5 mg-30 mcg (21)/75 mg (7) per tablet norethindro 2020-09 Yes [id number] 1{tbl} Take 1 [facility] ne-e.estrad 1-01 tablet by ity of ioL-iron 00:00: mouth [place] (LOESTRIN 00 daily. Medical FE ) Branch 1.5 mg-30 mcg (21)/75 mg (7) per tablet norethindro 2020-09 Yes [id number] 1{tbl} Take 1 [facility] ne-e.estrad 1-01 tablet by ity of ioL-iron 00:00: mouth [place] (LOESTRIN 00 daily. Medical FE ) Branch 1.5 mg-30 mcg (21)/75 mg (7) per tablet norethindro 2020-09 Yes [id number] 1{tbl} Take 1 [facility] ne-e.estrad 1-01 tablet by ity of ioL-iron 00:00: mouth [place] (LOESTRIN 00 daily. Medical FE ) Branch 1.5 mg-30 mcg (21)/75 mg (7) per tablet norethindro 2020-09 Yes [id number] 1{tbl} Take 1 [facility] ne-e.estrad 1-01 tablet by ity of ioL-iron 00:00: mouth [place] (LOESTRIN 00 daily. Medical FE ) Branch 1.5 mg-30 mcg (21)/75 mg (7) per tablet norethindro 2020-09 Yes [id number] 1{tbl} Take 1 [facility] ne-e.estrad 1-01 tablet by ity of ioL-iron 00:00: mouth [place] (LOESTRIN 00 daily. Medical FE ) Branch 1.5 mg-30 mcg (21)/75 mg (7) per tablet norethindro 2020-09 Yes [id number] 1{tbl} Take 1 [facility] ne-e.estrad 1-01 tablet by ity of ioL-iron 00:00: mouth [place] (LOESTRIN 00 daily. Medical FE ) Branch 1.5 mg-30 mcg (21)/75 mg (7) per tablet norethindro 2020-09 Yes [id number] 1{tbl} Take 1 [facility] ne-e.estrad 1-01 tablet by ity of ioL-iron 00:00: mouth [place] (LOESTRIN 00 daily. Medical FE ) Branch 1.5 mg-30 mcg (21)/75 mg (7) per tablet norethindro 2020-09 Yes [id number] 1{tbl} Take 1 [facility] ne-e.estrad 1-01 tablet by ity of ioL-iron 00:00: mouth [place] (LOESTRIN 00 daily. Medical FE ) Branch 1.5 mg-30 mcg (21)/75 mg (7) per tablet norethindro 2020-09 Yes [id number] 1{tbl} Take 1 [facility] ne-e.estrad 1-01 tablet by ity of ioL-iron 00:00: mouth [place] (LOESTRIN 00 daily. Medical FE ) Branch 1.5 mg-30 mcg (21)/75 mg (7) per tablet norethindro 2020-09 Yes [id number] 1{tbl} Take 1 [facility] ne-e.estrad 1-01 tablet by ity of ioL-iron 00:00: mouth [place] (LOESTRIN 00 daily. Medical FE ) Branch 1.5 mg-30 mcg (21)/75 mg (7) per tablet norethindro 2020-09 Yes [id number] 1{tbl} Take 1 [facility] ne-e.estrad 1-01 tablet by ity of ioL-iron 00:00: mouth [place] (LOESTRIN 00 daily. Medical FE ) Branch 1.5 mg-30 mcg (21)/75 mg (7) per tablet norethindro 2020-09 Yes [id number] 1{tbl} Take 1 [facility] ne-e.estrad 1-01 tablet by ity of ioL-iron 00:00: mouth [place] (LOESTRIN 00 daily. Medical FE ) Branch 1.5 mg-30 mcg (21)/75 mg (7) per tablet norethindro 2020-09 Yes [id number] 1{tbl} Take 1 [facility] ne-e.estrad 1-01 tablet by ity of ioL-iron 00:00: mouth [place] (LOESTRIN 00 daily. Medical FE ) Branch 1.5 mg-30 mcg (21)/75 mg (7) per tablet norethindro 2020-09 Yes [id number] 1{tbl} Take 1 [facility] ne-e.estrad 1-01 tablet by ity of ioL-iron 00:00: mouth [place] (LOESTRIN 00 daily. Medical FE ) Branch 1.5 mg-30 mcg (21)/75 mg (7) per tablet norethindro 2020-09 Yes [id number] 1{tbl} Take 1 [facility] ne-e.estrad 1-01 tablet by ity of ioL-iron 00:00: mouth [place] (LOESTRIN 00 daily. Medical FE ) Branch 1.5 mg-30 mcg (21)/75 mg (7) per tablet norethindro 2020-09 Yes [id number] 1{tbl} Take 1 [facility] ne-e.estrad 1-01 tablet by ity of ioL-iron 00:00: mouth [place] (LOESTRIN 00 daily. Medical FE ) Branch 1.5 mg-30 mcg (21)/75 mg (7) per tablet norethindro 2020-09 Yes [id number] 1{tbl} Take 1 [facility] ne-e.estrad 1-01 tablet by ity of ioL-iron 00:00: mouth [place] (LOESTRIN 00 daily. Medical FE ) Branch 1.5 mg-30 mcg (21)/75 mg (7) per tablet norethindro 2020-09 Yes [id number] 1{tbl} Take 1 [facility] ne-e.estrad 1-01 tablet by ity of ioL-iron 00:00: mouth [place] (LOESTRIN 00 daily. Medical FE ) Branch 1.5 mg-30 mcg (21)/75 mg (7) per tablet norethindro 2020-09 Yes [id number] 1{tbl} Take 1 [facility] ne-e.estrad 1-01 tablet by ity of ioL-iron 00:00: mouth [place] (LOESTRIN 00 daily. Medical FE ) Branch 1.5 mg-30 mcg (21)/75 mg (7) per tablet norethindro 2020-09 Yes [id number] 1{tbl} Take 1 [facility] ne-e.estrad 1-01 tablet by ity of ioL-iron 00:00: mouth [place] (LOESTRIN 00 daily. Medical FE ) Branch 1.5 mg-30 mcg (21)/75 mg (7) per tablet norethindro 2020-09 Yes [id number] 1{tbl} Take 1 [facility] ne-e.estrad 1-01 tablet by ity of ioL-iron 00:00: mouth [place] (LOESTRIN 00 daily. Medical FE ) Branch 1.5 mg-30 mcg (21)/75 mg (7) per tablet norethindro 2020-09 Yes [id number] 1{tbl} Take 1 [facility] ne-e.estrad 1-01 tablet by ity of ioL-iron 00:00: mouth [place] (LOESTRIN 00 daily. Medical FE ) Branch 1.5 mg-30 mcg (21)/75 mg (7) per tablet norethindro 2020-09 Yes [id number] 1{tbl} Take 1 [facility] ne-e.estrad 1-01 tablet by ity of ioL-iron 00:00: mouth [place] (LOESTRIN 00 daily. Medical FE ) Branch 1.5 mg-30 mcg (21)/75 mg (7) per tablet norethindro 2020-09 Yes [id number] 1{tbl} Take 1 [facility] ne-e.estrad 1-01 tablet by ity of ioL-iron 00:00: mouth [place] (LOESTRIN 00 daily. Medical FE ) Branch 1.5 mg-30 mcg (21)/75 mg (7) per tablet norethindro 2020-09 Yes [id number] 1{tbl} Take 1 [facility] ne-e.estrad 1-01 tablet by ity of ioL-iron 00:00: mouth [place] (LOESTRIN 00 daily. Medical FE ) Branch 1.5 mg-30 mcg (21)/75 mg (7) per tablet norethindro 2020-09 Yes [id number] 1{tbl} Take 1 [facility] ne-e.estrad 1-01 tablet by ity of ioL-iron 00:00: mouth [place] (LOESTRIN 00 daily. Medical FE ) Branch 1.5 mg-30 mcg (21)/75 mg (7) per tablet norethindro 2020-09 Yes [id number] 1{tbl} Take 1 [facility] ne-e.estrad 1-01 tablet by ity of ioL-iron 00:00: mouth [place] (LOESTRIN 00 daily. Medical FE ) Branch 1.5 mg-30 mcg (21)/75 mg (7) per tablet norethindro 2020-09 Yes [id number] 1{tbl} Take 1 [facility] ne-e.estrad 1-01 tablet by ity of ioL-iron 00:00: mouth [place] (LOESTRIN 00 daily. Medical FE ) Branch 1.5 mg-30 mcg (21)/75 mg (7) per tablet norethindro 2020-09 Yes [id number] 1{tbl} Take 1 [facility] ne-e.estrad 1-01 tablet by ity of ioL-iron 00:00: mouth [place] (LOESTRIN 00 daily. Medical FE ) Branch 1.5 mg-30 mcg (21)/75 mg (7) per tablet norethindro 2020-09 Yes [id number] 1{tbl} Take 1 [facility] ne-e.estrad 1-01 tablet by ity of ioL-iron 00:00: mouth [place] (LOESTRIN 00 daily. Medical FE ) Branch 1.5 mg-30 mcg (21)/75 mg (7) per tablet norethindro 2020-09 Yes [id number] 1{tbl} Take 1 [facility] ne-e.estrad 1-01 tablet by ity of ioL-iron 00:00: mouth [place] (LOESTRIN 00 daily. Medical FE ) Branch 1.5 mg-30 mcg (21)/75 mg (7) per tablet norethindro 2020-09 Yes [id number] 1{tbl} Take 1 [facility] ne-e.estrad 1-01 tablet by ity of ioL-iron 00:00: mouth [place] (LOESTRIN 00 daily. Medical FE ) Branch 1.5 mg-30 mcg (21)/75 mg (7) per tablet norethindro 2020-09 Yes [id number] 1{tbl} Take 1 [facility] ne-e.estrad 1-01 tablet by ity of ioL-iron 00:00: mouth [place] (LOESTRIN 00 daily. Medical FE ) Branch 1.5 mg-30 mcg (21)/75 mg (7) per tablet norethindro 2020-09 Yes [id number] 1{tbl} Take 1 [facility] ne-e.estrad 1-01 tablet by ity of ioL-iron 00:00: mouth [place] (LOESTRIN 00 daily. Medical FE ) Branch 1.5 mg-30 mcg (21)/75 mg (7) per tablet norethindro 2020-09 Yes [id number] 1{tbl} Take 1 [facility] ne-e.estrad 1-01 tablet by ity of ioL-iron 00:00: mouth [place] (LOESTRIN 00 daily. Medical FE ) Branch 1.5 mg-30 mcg (21)/75 mg (7) per tablet norethindro 2020-09 Yes [id number] 1{tbl} Take 1 [facility] ne-e.estrad 1-01 tablet by ity of ioL-iron 00:00: mouth [place] (LOESTRIN 00 daily. Medical FE ) Branch 1.5 mg-30 mcg (21)/75 mg (7) per tablet norethindro 2020-09 Yes [id number] 1{tbl} Take 1 [facility] ne-e.estrad 1-01 tablet by ity of ioL-iron 00:00: mouth [place] (LOESTRIN 00 daily. Medical FE ) Branch 1.5 mg-30 mcg (21)/75 mg (7) per tablet norethindro 2020-09 Yes [id number] 1{tbl} Take 1 [facility] ne-e.estrad 1-01 tablet by ity of ioL-iron 00:00: mouth [place] (LOESTRIN 00 daily. Medical FE ) Branch 1.5 mg-30 mcg (21)/75 mg (7) per tablet norethindro 2020-09 Yes [id number] 1{tbl} Take 1 [facility] ne-e.estrad 1-01 tablet by ity of ioL-iron 00:00: mouth [place] (LOESTRIN 00 daily. Medical FE ) Branch 1.5 mg-30 mcg (21)/75 mg (7) per tablet norethindro 2020-09 Yes [id number] 1{tbl} Take 1 [facility] ne-e.estrad 1-01 tablet by ity of ioL-iron 00:00: mouth [place] (LOESTRIN 00 daily. Medical FE ) Branch 1.5 mg-30 mcg (21)/75 mg (7) per tablet norethindro 2020-09 Yes [id number] 1{tbl} Take 1 [facility] ne-e.estrad 1-01 tablet by ity of ioL-iron 00:00: mouth [place] (LOESTRIN 00 daily. Medical FE ) Branch 1.5 mg-30 mcg (21)/75 mg (7) per tablet norethindro 2020-09 Yes [id number] 1{tbl} Take 1 [facility] ne-e.estrad 1-01 tablet by ity of ioL-iron 00:00: mouth [place] (LOESTRIN 00 daily. Medical FE ) Branch 1.5 mg-30 mcg (21)/75 mg (7) per tablet norethindro 2020-09 Yes [id number] 1{tbl} Take 1 [facility] ne-e.estrad - tablet by ity of ioL-iron 00:00: mouth [place] (LOESTRIN 00 daily. Medical FE ) Branch 1.5 mg-30 mcg (21)/75 mg (7) per tablet norethindro 2020-09- No [id number] 1{tbl} Take 1 [facility] ne-e.estrad 09-26 tablet by it y of ioL-iron 00:00: 00:00 mouth [place] (LOESTRIN 00 :00 daily. Medical FE ) Branch 1.5 mg-30 mcg (21)/75 mg (7) per tablet norethindro 2020-09- No [id number] 1{tbl} Take 1 [facility] ne-e.estrad 09-26 tablet by it y of ioL-iron 00:00: 00:00 mouth [place] (LOESTRIN 00 :00 daily. Medical FE ) Branch 1.5 mg-30 mcg (21)/75 mg (7) per tablet mupirocin 2 2020-09- No [id number] Apply to [facility] % ointment 0-12 08-25 area(s) 3 ity of 00:00: 00:00 (three) [place] 00 :00 times Medical daily. Branch Immunizations Ordered Filled Immunization Date Status Comments [facility] e Immunization Name Name TD 2023-01-13 Completed [facility] 00:00:00 [place] [facility] TDAP 2023-01-13 Completed [facility] 00:00:00 [place] [facility] TDAP 2023-01-13 Completed [facility] 00:00:00 [place] [facility] TDAP 2023-01-13 Completed [facility] 00:00:00 [place] [facility] TDAP 2023-01-13 Completed [facility] 00:00:00 [place] [facility] TDAP 2023-01-13 Completed [facility] of 00:00:00 [place] [facility] TDAP 2023-01-13 Completed [facility] of 00:00:00 [place] [facility] TDAP 2023-01-13 Completed [facility] of 00:00:00 [place] [facility] TDAP 2023-01-13 Completed [facility] of 00:00:00 [facility] Branch TDAP 2023-01-13 Completed [facility] of 00:00:00 [facility] Branch TDAP 2023-01-13 Completed [facility] of 00:00:00 [place] [facility] TDAP 2023-01-13 Completed [facility] of 00:00:00 [place] [facility] TDAP 2023-01-13 Completed [facility] of 00:00:00 [facility] Branch TDAP 2023-01-13 Completed [facility] of 00:00:00 [facility] Branch TDAP 2023-01-13 Completed [facility] of 00:00:00 [facility] Branch TDAP 2023-01-13 Completed [facility] of 00:00:00 [facility] Branch TDAP 2023-01-13 Completed [facility] of 00:00:00 [facility] Branch TDAP 2023-01-13 Completed [facility] of 00:00:00 [place] [facility] TDAP 2023-01-13 Completed [facility] of 00:00:00 [facility] Branch TDAP 2023-01-13 Completed [facility] of 00:00:00 [facility] Branch TDAP 2023-01-13 Completed [facility] of 00:00:00 [facility] Branch TDAP 2023-01-13 Completed [facility] of 00:00:00 [facility] Branch TDAP 2023-01-13 Completed [facility] of 00:00:00 [facility] Branch TDAP 2023-01-13 Completed [facility] of 00:00:00 [facility] Branch TDAP 2023-01-13 Completed [facility] of 00:00:00 [facility] Branch TDAP 2023-01-13 Completed [facility] of 00:00:00 [facility] 2023-01-13 Completed [facility] 00:00:00 [facility] 2023-01-13 Completed [facility] 00[facility]00:00 [facility] 2023-01-13 Completed [facility] 00:00:00 [facility] 2023-01-13 Completed [facility] 00:00:00 [facility] 2023-01-13 Completed [facility] 00:00:00 [facility] 2023-01-13 Completed [facility] 00:00:00 [facility]AP 2023-01-13 Completed [facility]00 [facility] [facility] TDAP 2023-01-13 Completed [facility] 00:00:00 [facility] Zoster Vaccine 2022-07-30 Completed [facility] of Recombinant 00:00:00 [facility] Zoster Vaccine 2022-07-30 Completed [facility] Recombinant 00:00:00 [facility] Zoster Vaccine 2022-07-30 Completed [facility] Recombinant 00:00:00 [facility] Zoster Vaccine 2022-07-30 Completed [facility] Recombinant 00:00:00 [facility] Zoster Vaccine 2022-07-30 Completed [facility] Recombinant 00:00:00 [facility] Zoster Vaccine 2022-07-30 Completed [facility] Recombinant 00:00:00 [facility] Zoster Vaccine 2022-07-30 Completed [facility] Recombinant 00:00:00 [facility] Zoster Vaccine 2022-07-30 Completed [facility] Recombinant 00:00:00 [facility] Zoster Vaccine 2022-07-30 Completed [facility] Recombinant 00:00:00 [facility] Zoster Vaccine 2022-07-30 Completed [facility] of Recombinant 00:00:00 [facility] Zoster Vaccine 2022-07-30 Completed [facility] of Recombinant 00:00:00 [facility] Zoster Vaccine 2022-07-30 Completed [facility] Recombinant 00:00:00 [facility] Zoster Vaccine 2022-07-30 Completed [facility] Recombinant 00:00:00 [facility] Zoster Vaccine 2022-07-30 Completed [facility] Recombinant 00:00:00 [facility] Zoster Vaccine 2022-07-30 Completed [facility] Recombinant 00:00:00 [facility] Zoster Vaccine 2022-07-30 Completed [facility] Recombinant 00:00:00 [facility] Zoster Vaccine 2022-07-30 Completed [facility] Recombinant 00:00:00 [facility] Zoster Vaccine 2022-07-30 Completed [facility] Recombinant 00:00:00 [facility] Zoster Vaccine 2022-07-30 Completed [facility] Recombinant 00:00:00 [facility] Zoster Vaccine 2022-07-30 Completed [facility] Recombinant 00:00:00 [facility] Zoster Vaccine 2022-07-30 Completed [facility] Recombinant 00:00:00 [facility] Zoster Vaccine 2022-07-30 Completed [facility] Recombinant 00:00:00 [facility] Zoster Vaccine 2022-07-30 Completed [facility] Recombinant 00:00:00 [facility] Zoster Vaccine 2022-07-30 Completed [facility] Recombinant 00:00:00 [facility] Zoster Vaccine 2022-07-30 Completed [facility] Recombinant 00:00:00 [facility] Zoster Vaccine 2022-07-30 Completed [facility] Recombinant 00:00:00 [facility] Zoster Vaccine 2022-07-30 Completed [facility] Recombinant 00:00:00 [facility] Zoster Vaccine 2022-07-30 Completed [facility] Recombinant 00:00:00 [facility] Zoster Vaccine 2022-07-30 Completed [facility] Recombinant 00:00:00 [facility] Zoster Vaccine 2022-07-30 Completed [facility] Recombinant 00:00:00 [facility] Zoster Vaccine 2022-07-30 Completed [facility] Recombinant 00:00:00 [facility] Zoster Vaccine 2022-07-30 Completed [facility] Recombinant 00:00:00 [facility] Zoster Vaccine 2022-07-30 Completed [facility] Recombinant 00:00:00 [facility] Zoster Vaccine 2022-07-30 Completed [facility] Recombinant 00:00:00 [facility] Zoster Vaccine 2022-07-30 Completed [facility] Recombinant 00:00:00 [facility] Zoster Vaccine 2022-07-30 Completed [facility] Recombinant 00:00:00 [facility] Zoster Vaccine 2022-07-30 Completed [facility] Recombinant 00:00:00 [facility] Zoster Vaccine 2022-07-30 Completed [facility] Recombinant 00:00:00 [facility] Zoster Vaccine 2022-07-30 Completed [facility] Recombinant 00:00:00 [facility] Zoster Vaccine 2022-07-30 Completed [facility] Recombinant 00:00:00 [facility] Zoster Vaccine 2022-07-30 Completed [facility] Recombinant 00:00:00 [facility] Zoster Vaccine 2022-07-30 Completed [facility] Recombinant 00:00:00 [facility] Zoster Vaccine 2022-07-30 Completed [facility] Recombinant 00:00:00 [facility] Zoster Vaccine 2022-07-30 Completed [facility] Recombinant 00:00:00 [facility] Zoster Vaccine 2022-07-30 Completed [facility] Recombinant 00:00:00 [facility] Zoster Vaccine 2022-07-30 Completed [facility] Recombinant 00:00:00 [facility] Zoster Vaccine 2022-07-30 Completed [facility] Recombinant 00:00:00 [facility] Zoster Vaccine 2022-07-30 Completed [facility] Recombinant 00:00:00 [facility] Zoster Vaccine 2022-07-30 Completed [facility] Recombinant 00:00:00 [facility] Zoster Vaccine 2022-07-30 Completed [facility] Recombinant 00:00:00 [facility] Zoster Vaccine 2022-07-30 Completed [facility] Recombinant 00:00:00 [facility] Zoster Vaccine 2022-07-30 Completed [facility] Recombinant 00:00:00 [facility] Zoster Vaccine 2022-07-30 Completed [facility] Recombinant 00:00:00 [facility] Zoster Vaccine 2022-07-30 Completed [facility] Recombinant 00:00:00 [facility] Zoster Vaccine 2022-07-30 Completed [facility] Recombinant 00:00:00 [facility] Zoster Vaccine 2022-07-30 Completed [facility] Recombinant 00:00:00 [facility] Zoster Vaccine 2022-07-30 Completed [facility] Recombinant 00:00:00 [facility] Zoster Vaccine 2022-07-30 Completed [facility] Recombinant 00:00:00 [facility] Zoster Vaccine 2022-07-30 Completed [facility] Recombinant 00:00:00 [facility] Zoster Vaccine 2022-07-30 Completed [facility] Recombinant 00:00:00 [facility] Zoster Vaccine 2022-07-30 Completed [facility] Recombinant 00:00:00 [facility] Zoster Vaccine 2022-07-30 Completed [facility] Recombinant 00:00:00 [facility] Zoster Vaccine 2022-07-30 Completed [facility] Recombinant 00:00:00 [facility] Zoster Vaccine 2022-07-30 Completed [facility] Recombinant 00:00:00 [facility] Zoster Vaccine 2022-07-30 Completed [facility] Recombinant 00:00:00 [facility] Zoster Vaccine 2022-07-30 Completed [facility] Recombinant 00:00:00 [facility] Zoster Vaccine 2022-07-30 Completed [facility] Recombinant 00:00:00 [facility] Zoster Vaccine 2022-07-30 Completed [facility] Recombinant 00:00:00 [facility] Zoster Vaccine 2022-07-30 Completed [facility] Recombinant 00:00:00 [facility] Zoster Vaccine 2022-07-30 Completed [facility] Recombinant 00:00:00 [facility] Zoster Vaccine 2022-07-30 Completed [facility] Recombinant 00:00:00 [facility] Zoster Vaccine 2022-07-30 Completed [facility] Recombinant 00:00:00 [facility] Zoster Vaccine 2022-07-30 Completed [facility] Recombinant 00:00:00 [facility] Zoster Vaccine 2022-07-30 Completed [facility] Recombinant 00:00:00 [facility] Zoster Vaccine 2022-07-30 Completed [facility] Recombinant 00:00:00 [facility] Zoster Vaccine 2022-07-30 Completed [facility] Recombinant 00:00:00 [facility] Zoster Vaccine 2022-07-30 Completed [facility] Recombinant 00:00:00 [facility] Zoster Vaccine 2022-07-30 Completed [facility] Recombinant 00:00:00 [facility] Zoster Vaccine 2022-07-30 Completed [facility] Recombinant 00:00:00 [facility] Zoster Vaccine 2022-07-30 Completed [facility] Recombinant 00:00:00 [facility] Zoster Vaccine 2022-07-30 Completed [facility] Recombinant 00:00:00 [facility] Zoster Vaccine 2022-07-30 Completed [facility] Recombinant 00:00:00 [facility] Zoster Vaccine 2022-07-30 Completed [facility] Recombinant 00:00:00 [facility] Zoster Vaccine 2022-07-30 Completed [facility] Recombinant 00:00:00 [facility] Zoster Vaccine 2022-07-30 Completed [facility] Recombinant 00:00:00 [facility] Zoster Vaccine 2022-07-30 Completed [facility] Recombinant 00:00:00 [facility] Zoster Vaccine 2022-07-30 Completed [facility] Recombinant 00:00:00 [facility] Zoster Vaccine 2022-07-30 Completed [facility] Recombinant 00:00:00 [facility] Zoster Vaccine 2022-07-30 Completed [facility] Recombinant 00:00:00 [facility] Zoster Vaccine 2022-07-30 Completed [facility] Recombinant 00:00:00 [facility] Zoster Vaccine 2022-07-30 Completed [facility] Recombinant 00:00:00 [facility] Zoster Vaccine 2022-07-30 Completed [facility] 00:00:00 [facility] Influenza Virus 2022-06-17 Completed Universit y of [...] Universit y of Vaccine Quad IM, 00:00:00 [place] [facility] Preserv and ABX Branch Free 6 MO-64 YRS Influenza Virus 2022-06-17 Completed [facility]it y of Vaccine Quad IM, 00:00:00 [place] [facility] Preserv and ABX Branch Free 6 MO-64 YRS Influenza Virus 2022-06-17 Completed [facility]it y of Vaccine Quad IM, 00:00:00 [place] [facility] Preserv and ABX Branch Free 6 MO-64 YRS Influenza Virus 2022-06-17 Completed [facility]it y of Vaccine [facility] IM, 00:00:00 [place] [facility] Preserv and ABX Branch Free 6 MO-64 YRS Influenza Virus 2022-06-17 Completed Universit y of Vaccine Quad IM, 00:00:00 [place] [facility] Preserv and ABX Branch Free 6 MO-64 YRS Influenza Virus 2022-06-17 Completed [facility]it y of Vaccine [facility] IM, 00:00:00 [place] [facility] Preserv and ABX Branch Free 6 MO-64 YRS Influenza Virus 2022-06-17 Completed [facility]it y of Vaccine Quad IM, 00:00:00 [place] [facility] Preserv and ABX Branch Free 6 MO-64 YRS Influenza Virus 2022-06-17 Completed [facility]it y of Vaccine [facility] IM, 00:00:00 [place] [facility] Preserv and ABX Branch Free 6 MO-64 YRS Influenza Virus 2022-06-17 Completed [facility]it y of Vaccine [facility] IM, 00:00:00 [place] [facility] Preserv and ABX Branch Free 6 MO-64 YRS Influenza Virus 2022-06-17 Completed [facility]it y of Vaccine [facility] IM, 00:00:00 [place] [facility] Preserv and ABX Branch Free 6 MO-64 YRS Influenza Virus 2022-06-17 Completed [facility]it y of Vaccine [facility] IM, 00:00:00 [place] [facility] Preserv and ABX Branch Free 6 MO-64 YRS Influenza Virus 2022-06-17 Completed [facility]it y of Vaccine Quad IM, 00:00:00 [place] [facility] Preserv and ABX Branch Free [...] Universit y of Vaccine Quad IM, 00:00:00 [facility] dical Preserv and ABX Branch Free 6 MO-64 YRS SARS-COV-2 COVID-19 2021-06-24 Completed Unive rsity of PFIZER VACCINE 00:00:00 [facility] Influenza Virus 2021-06-24 Completed Universit y of Vaccine 00:00:00 [facility] SARS-COV-2 COVID-19 2021-06-24 Completed Unive rsity of PFIZER VACCINE 00:00:00 [facility] Influenza Virus 2021-06-24 Completed Universit y of Vaccine 00:00:00 [facility] SARS-COV-2 COVID-19 2021-06-24 Completed Unive rsity of PFIZER VACCINE 00:00:00 [facility] Influenza Virus 2021-06-24 Completed Universit y of Vaccine 00:00:00 [facility] SARS-COV-2 COVID-19 2021-06-24 Completed Unive rsity of PFIZER VACCINE 00:00:00 [facility] Influenza Virus 2021-06-24 Completed Universit y of Vaccine 00:00:00 [facility] SARS-COV-2 COVID-19 2021-06-24 Completed Unive rsity of PFIZER VACCINE 00:00:00 [facility] Influenza Virus 2021-06-24 Completed Universit y of Vaccine 00:00:00 [facility] SARS-COV-2 COVID-19 2021-06-24 Completed Unive rsity of PFIZER VACCINE 00:00:00 [facility] Influenza Virus 2021-06-24 Completed Universit y of Vaccine 00:00:00 [facility] SARS-COV-2 COVID-19 2021-06-24 Completed Unive rsity of PFIZER VACCINE 00:00:00 [facility] Influenza Virus 2021-06-24 Completed Universit y of Vaccine 00:00:00 [facility] SARS-COV-2 COVID-19 2021-06-24 Completed Unive rsity of PFIZER VACCINE 00:00:00 [facility] Influenza Virus 2021-06-24 Completed Universit y of Vaccine 00:00:00 [facility] SARS-COV-2 COVID-19 2021-06-24 Completed Unive rsity of PFIZER VACCINE 00:00:00 [facility] Influenza Virus 2021-06-24 Completed Universit y of Vaccine 00:00:00 [facility] SARS-COV-2 COVID-19 2021-06-24 Completed Unive rsity of PFIZER VACCINE 00:00:00 [facility] Influenza Virus 2021-06-24 Completed Universit y of Vaccine 00:00:00 [facility] SARS-COV-2 COVID-19 2021-06-24 Completed Unive rsity of PFIZER VACCINE 00:00:00 [facility] Influenza Virus 2021-06-24 Completed Universit y of Vaccine 00:00:00 [facility] SARS-COV-2 COVID-19 2021-06-24 Completed Unive rsity of PFIZER VACCINE 00:00:00 [facility] Influenza Virus 2021-06-24 Completed Universit y of Vaccine 00:00:00 [facility] SARS-COV-2 COVID-19 2021-06-24 Completed Unive rsity of PFIZER VACCINE 00:00:00 [facility] Influenza Virus 2021-06-24 Completed Universit y of Vaccine 00:00:00 [facility] SARS-COV-2 COVID-19 2021-06-24 Completed Unive rsity of PFIZER VACCINE 00:00:00 [facility] Influenza Virus 2021-06-24 Completed Universit y of Vaccine 00:00:00 [facility] SARS-COV-2 COVID-19 2021-06-24 Completed Unive rsity of PFIZER VACCINE 00:00:00 [facility] Influenza Virus 2021-06-24 Completed [facility]it y of Vaccine 00:00:00 [facility] SARS-COV-2 COVID-19 2021-06-24 Completed Unive rsity of PFIZER VACCINE 00:00:00 [facility] Influenza Virus 2021-06-24 Completed [facility]it y of Vaccine 00:00:00 [facility] SARS-COV-2 COVID-19 2021-06-24 Completed Unive rsity of PFIZER VACCINE 00:00:00 [facility] Influenza Virus 2021-06-24 Completed Universit y of Vaccine 00:00:00 [facility] SARS-COV-2 COVID-19 2021-06-24 Completed Unive rsity of PFIZER VACCINE 00:00:00 [facility] Influenza Virus 2021-06-24 Completed Universit y of Vaccine 00:00:00 [facility] SARS-COV-2 COVID-19 2021-06-24 Completed Unive rsity of PFIZER VACCINE 00:00:00 [facility] Influenza Virus 2021-06-24 Completed Universit y of Vaccine 00:00:00 [facility] SARS-COV-2 COVID-19 2021-06-24 Completed Unive rsity of PFIZER VACCINE 00:00:00 [facility] Influenza Virus 2021-06-24 Completed Universit y of Vaccine 00:00:00 [facility] SARS-COV-2 COVID-19 2021-06-24 Completed Unive rsity of PFIZER VACCINE 00:00:00 [facility] Influenza Virus 2021-06-24 Completed Universit y of Vaccine 00:00:00 [facility] SARS-COV-2 COVID-19 2021-06-24 Completed Unive rsity of PFIZER VACCINE 00:00:00 [facility] Influenza Virus 2021-06-24 Completed Universit y of Vaccine 00:00:00 [facility] SARS-COV-2 COVID-19 2021-06-24 Completed Unive rsity of PFIZER VACCINE 00:00:00 [facility] Influenza Virus 2021-06-24 Completed Universit y of Vaccine 00:00:00 [facility] SARS-COV-2 COVID-19 2021-06-24 Completed Unive rsity of PFIZER VACCINE 00:00:00 [facility] Influenza Virus 2021-06-24 Completed Universit y of Vaccine 00:00:00 [facility] SARS-COV-2 COVID-19 2021-06-24 Completed Unive rsity of PFIZER VACCINE 00:00:00 [facility] Influenza Virus 2021-06-24 Completed [facility]it y of Vaccine 00:00:00 [facility] SARS-COV-2 COVID-19 2021-06-24 Completed Unive rsity of PFIZER VACCINE 00:00:00 [facility] Influenza Virus 2021-06-24 Completed Universit y of Vaccine 00:00:00 [facility] SARS-COV-2 COVID-19 2021-06-24 Completed Unive rsity of PFIZER VACCINE 00:00:00 [facility] Influenza Virus 2021-06-24 Completed Universit y of Vaccine 00:00:00 [facility] SARS-COV-2 COVID-19 2021-06-24 Completed Unive rsity of PFIZER VACCINE 00:00:00 [facility] Influenza Virus 2021-06-24 Completed Universit y of Vaccine 00:00:00 [facility] SARS-COV-2 COVID-19 2021-06-24 Completed Unive rsity of PFIZER VACCINE 00:00:00 [facility] Influenza Virus 2021-06-24 Completed Universit y of Vaccine 00:00:00 [facility] SARS-COV-2 COVID-19 2021-06-24 Completed Unive rsity of PFIZER VACCINE 00:00:00 [facility] Influenza Virus 2021-06-24 Completed Universit y of Vaccine 00:00:00 [facility] SARS-COV-2 COVID-19 2021-06-24 Completed Unive rsity of PFIZER VACCINE 00:00:00 [facility] Influenza Virus 2021-06-24 Completed Universit y of Vaccine 00:00:00 [facility] SARS-COV-2 COVID-19 2021-06-24 Completed Unive rsity of PFIZER VACCINE 00:00:00 [facility] Influenza Virus 2021-06-24 Completed Universit y of Vaccine 00:00:00 [facility] SARS-COV-2 COVID-19 2021-06-24 Completed Unive rsity of PFIZER VACCINE 00:00:00 [facility] Influenza Virus 2021-06-24 Completed Universit y of Vaccine 00:00:00 [facility] SARS-COV-2 COVID-19 2021-06-24 Completed Unive rsity of PFIZER VACCINE 00:00:00 [facility] Influenza Virus 2021-06-24 Completed Universit y of Vaccine 00:00:00 [facility] SARS-COV-2 COVID-19 2021-06-24 Completed Unive rsity of PFIZER VACCINE 00:00:00 [facility] Influenza Virus 2021-06-24 Completed Universit y of Vaccine 00:00:00 [facility] SARS-COV-2 COVID-19 2021-06-24 Completed Unive rsity of PFIZER VACCINE 00:00:00 [facility] Influenza Virus 2021-06-24 Completed Universit y of Vaccine 00:00:00 [facility] SARS-COV-2 COVID-19 2021-06-24 Completed Unive rsity of PFIZER VACCINE 00:00:00 [facility] Influenza Virus 2021-06-24 Completed Universit y of Vaccine 00:00:00 [facility] SARS-COV-2 COVID-19 2021-06-24 Completed Unive rsity of PFIZER VACCINE 00:00:00 [facility] Influenza Virus 2021-06-24 Completed Universit y of Vaccine 00:00:00 [facility] SARS-COV-2 COVID-19 2021-06-24 Completed Unive rsity of PFIZER VACCINE 00:00:00 [facility] Influenza Virus 2021-06-24 Completed Universit y of Vaccine 00:00:00 [facility] SARS-COV-2 COVID-19 2021-06-24 Completed Unive rsity of PFIZER VACCINE 00:00:00 [facility] Influenza Virus 2021-06-24 Completed Universit y of Vaccine 00:00:00 [facility] SARS-COV-2 COVID-19 2021-06-24 Completed Unive rsity of PFIZER VACCINE 00:00:00 [facility] Influenza Virus 2021-06-24 Completed [facility]it y of Vaccine 00:00:00 [facility] SARS-COV-2 COVID-19 2021-06-24 Completed Unive rsity of PFIZER VACCINE 00:00:00 [facility] Influenza Virus 2021-06-24 Completed Universit y of Vaccine 00:00:00 [facility] SARS-COV-2 COVID-19 2021-06-24 Completed Unive rsity of PFIZER VACCINE 00:00:00 [facility] Influenza Virus 2021-06-24 Completed Universit y of Vaccine 00:00:00 [facility] SARS-COV-2 COVID-19 2021-06-24 Completed Unive rsity of PFIZER VACCINE 00:00:00 [facility] Influenza Virus 2021-06-24 Completed Universit y of Vaccine 00:00:00 [facility] SARS-COV-2 COVID-19 2021-06-24 Completed Unive rsity of PFIZER VACCINE 00:00:00 [facility] Influenza Virus 2021-06-24 Completed Universit y of Vaccine 00:00:00 [facility] SARS-COV-2 COVID-19 2021-06-24 Completed Unive rsity of PFIZER VACCINE 00:00:00 [facility] Influenza Virus 2021-06-24 Completed Universit y of Vaccine 00:00:00 [facility] SARS-COV-2 COVID-19 2021-06-24 Completed Unive rsity of PFIZER VACCINE 00:00:00 [facility] Influenza Virus 2021-06-24 Completed Universit y of Vaccine 00:00:00 [facility] SARS-COV-2 COVID-19 2021-06-24 Completed Unive rsity of PFIZER VACCINE 00:00:00 [facility] Influenza Virus 2021-06-24 Completed Universit y of Vaccine 00:00:00 [facility] SARS-COV-2 COVID-19 2021-06-24 Completed Unive rsity of PFIZER VACCINE 00:00:00 [facility] Influenza Virus 2021-06-24 Completed Universit y of Vaccine 00:00:00 [facility] SARS-COV-2 COVID-19 2021-06-24 Completed Unive rsity of PFIZER VACCINE 00:00:00 [facility] Influenza Virus 2021-06-24 Completed [facility]it y of Vaccine 00:00:00 [facility] SARS-COV-2 COVID-19 2021-06-24 Completed Unive rsity of PFIZER VACCINE 00:00:00 [facility] Influenza Virus 2021-06-24 Completed [facility] y of Vaccine 00:00:00 [facility] SARS-COV-2 COVID-19 2021-06-24 Completed Unive rsity of PFIZER VACCINE 00:00:00 [facility] Influenza Virus 2021-06-24 Completed [facility] y of Vaccine 00:00:00 [facility] SARS-COV-2 COVID-19 2021-06-24 Completed Unive rsity of PFIZER VACCINE 00:00:00 [facility] Influenza Virus 2021-06-24 Completed [facility] y of Vaccine 00:00:00 [facility] SARS-COV-2 COVID-19 2021-06-24 Completed Unive rsity of PFIZER VACCINE 00:00:00 [facility] Influenza Virus 2021-06-24 Completed [facility]it y of Vaccine 00:00:00 [facility] SARS-COV-2 COVID-19 2021-06-24 Completed Unive rsity of PFIZER VACCINE 00:00:00 [facility] Influenza Virus 2021-06-24 Completed [facility] y of Vaccine 00:00:00 [facility] SARS-COV-2 COVID-19 2021-06-24 Completed Unive rsity of PFIZER VACCINE 00:00:00 [facility] Influenza Virus 2021-06-24 Completed [facility]it y of Vaccine 00:00:00 [facility] SARS-COV-2 COVID-19 2021-06-24 Completed Unive rsity of PFIZER VACCINE 00:00:00 [facility] Influenza Virus 2021-06-24 Completed [facility] y of Vaccine 00:00:00 [facility] SARS-COV-2 COVID-19 2021-06-24 Completed Unive rsity of PFIZER VACCINE 00:00:00 [facility] Influenza Virus 2021-06-24 Completed Universit y of Vaccine 00:00:00 [facility] SARS-COV-2 COVID-19 2021-06-24 Completed Unive [facility] PFIZER VACCINE 00:00:00 [facility] Influenza Virus 2021-06-24 Completed [facility] Vaccine 00:00:00 [facility] SARS-COV-2 COVID-19 2021-06-24 Completed [facility] PFIZER VACCINE 00:00:00 [facility] Influenza Virus 2021-06-24 Completed [facility] Vaccine 00:00:00 [facility] SARS-COV-2 COVID-19 2021-06-24 Completed [facility] PFIZER VACCINE 00:00:00 [facility] Influenza Virus 2021-06-24 Completed [facility] Vaccine 00:00:00 [facility] SARS-COV-2 COVID-19 2021-06-24 Completed [facility] PFIZER VACCINE 00:00:00 [facility] Influenza Virus 2021-06-24 Completed [facility] Vaccine 00:00:00 [facility] SARS-COV-2 COVID-19 2021-06-24 Completed [facility] PFIZER VACCINE 00:00:00 [facility] Influenza Virus 2021-06-24 Completed [facility] Vaccine 00:00:00 [facility] SARS-COV-2 COVID-19 2021-06-24 Completed [facility] PFIZER VACCINE 00:00:00 [facility] Influenza Virus 2021-06-24 Completed [facility] Vaccine 00:00:00 [facility] SARS-COV-2 COVID-19 2021-06-24 Completed [facility] PFIZER VACCINE 00:00:00 [facility] Influenza Virus 2021-06-24 Completed [facility] Vaccine 00:00:00 [facility] SARS-COV-2 COVID-19 2021-06-24 Completed [facility] PFIZER VACCINE 00:00:00 [facility] Influenza Virus 2021-06-24 Completed [facility] Vaccine 00:00:00 [facility] SARS-COV-2 COVID-19 2021-06-24 Completed [facility] PFIZER VACCINE 00:00:00 [facility] Influenza Virus 2021-06-24 Completed [facility] Vaccine 00:00:00 [facility] SARS-COV-2 COVID-19 2021-06-24 Completed [facility] PFIZER VACCINE 00:00:00 [facility] Influenza Virus 2021-06-24 Completed [facility] Vaccine 00:00:00 [facility] SARS-COV-2 COVID-19 2021-06-24 Completed [facility] PFIZER VACCINE 00:00:00 [facility] Influenza Virus 2021-06-24 Completed [facility] Vaccine 00:00:00 [facility] SARS-COV-2 COVID-19 2021-06-24 Completed [facility] PFIZER VACCINE 00:00:00 [facility] Influenza Virus 2021-06-24 Completed [facility] Vaccine 00:00:00 [facility] SARS-COV-2 COVID-19 2021-06-24 Completed [facility] PFIZER VACCINE 00:00:00 [facility] Influenza Virus 2021-06-24 Completed [facility] Vaccine 00:00:00 [facility] SARS-COV-2 COVID-19 2021-06-24 Completed [facility] PFIZER VACCINE 00:00:00 [facility] Influenza Virus 2021-06-24 Completed [facility] Vaccine 00:00:00 [facility] SARS-COV-2 COVID-19 2021-06-24 Completed [facility] PFIZER VACCINE 00:00:00 [facility] Influenza Virus 2021-06-24 Completed [facility] Vaccine 00:00:00 [facility] SARS-COV-2 COVID-19 2021-06-24 Completed [facility] PFIZER VACCINE 00:00:00 [facility] Influenza Virus 2021-06-24 Completed [facility] Vaccine 00:00:00 [facility] SARS-COV-2 COVID-19 2021-06-24 Completed [facility] PFIZER VACCINE 00:00:00 [facility] Influenza Virus 2021-06-24 Completed [facility] Vaccine 00:00:00 [facility] SARS-COV-2 COVID-19 2021-06-24 Completed [facility] PFIZER VACCINE 00:00:00 [facility] Influenza Virus 2021-06-24 Completed [facility] Vaccine 00:00:00 [facility] SARS-COV-2 COVID-19 2021-06-24 Completed [facility] PFIZER VACCINE 00:00:00 [facility] Influenza Virus 2021-06-24 Completed [facility] Vaccine 00:00:00 [facility] SARS-COV-2 COVID-19 2021-06-24 Completed [facility] PFIZER VACCINE 00:00:00 [facility] Influenza Virus 2021-06-24 Completed [facility] Vaccine 00:00:00 [facility] SARS-COV-2 COVID-19 2021-06-24 Completed [facility] PFIZER VACCINE 00:00:00 [facility] Influenza Virus 2021-06-24 Completed [facility] Vaccine 00:00:00 [facility] SARS-COV-2 COVID-19 2021-06-24 Completed [facility] PFIZER VACCINE 00:00:00 [facility] Influenza Virus 2021-06-24 Completed [facility] Vaccine 00:00:00 [facility] SARS-COV-2 COVID-19 2021-06-24 Completed [facility] PFIZER VACCINE 00:00:00 [facility] Influenza Virus 2021-06-24 Completed [facility] Vaccine 00:00:00 [facility] SARS-COV-2 COVID-19 2021-06-24 Completed [facility] PFIZER VACCINE 00:00:00 [facility] Influenza Virus 2021-06-24 Completed [facility] Vaccine 00:00:00 [facility] SARS-COV-2 COVID-19 2021-06-24 Completed [facility] PFIZER VACCINE 00:00:00 [facility] Influenza Virus 2021-06-24 Completed [facility] Vaccine 00:00:00 [facility] SARS-COV-2 COVID-19 2021-06-24 Completed [facility] PFIZER VACCINE 00:00:00 [facility] Influenza Virus 2021-06-24 Completed [facility] Vaccine 00:00:00 [facility] SARS-COV-2 COVID-19 2021-06-24 Completed [facility] PFIZER VACCINE 00:00:00 [facility] Influenza Virus 2021-06-24 Completed [facility] Vaccine 00:00:00 [facility] SARS-COV-2 COVID-19 2021-06-24 Completed [facility] PFIZER VACCINE 00:00:00 [facility] Influenza Virus 2021-06-24 Completed [facility] Vaccine 00:00:00 [facility] SARS-COV-2 COVID-19 2021-06-24 Completed [facility] PFIZER VACCINE 00:00:00 [facility] Influenza Virus 2021-06-24 Completed [facility] Vaccine 00:00:00 [facility] SARS-COV-2 COVID-19 2021-06-24 Completed [facility] PFIZER VACCINE 00:00:00 [facility] Influenza Virus 2021-06-24 Completed [facility] Vaccine 00:00:00 [facility] SARS-COV-2 COVID-19 2021-06-24 Completed [facility] PFIZER VACCINE 00:00:00 [facility] Influenza Virus 2021-06-24 Completed [facility] Vaccine 00:00:00 [facility] SARS-COV-2 COVID-19 2021-06-24 Completed [facility] PFIZER VACCINE 00:00:00 [facility] Influenza Virus 2021-06-24 Completed [facility] Vaccine 00:00:00 [facility] SARS-COV-2 COVID-19 2021-06-24 Completed [facility] PFIZER VACCINE 00:00:00 [facility] Influenza Virus 2021-06-24 Completed [facility] Vaccine 00:00:00 [facility] SARS-COV-2 COVID-19 2021-06-24 Completed [facility] PFIZER VACCINE 00:00:00 [facility] Influenza Virus 2021-06-24 Completed [facility] Vaccine 00:00:00 [facility] SARS-COV-2 COVID-19 2021-06-24 Completed [facility] PFIZER VACCINE 00:00:00 [facility] Influenza Virus 2021-06-24 Completed [facility] Vaccine 00:00:00 [facility] SARS-COV-2 COVID-19 2021-06-24 Completed [facility] PFIZER VACCINE 00:00:00 [facility] Influenza Virus 2021-06-24 Completed [facility] Vaccine 00:00:00 [facility] SARS-COV-2 COVID-19 2021-06-24 Completed [facility] PFIZER VACCINE 00:00:00 [facility] Influenza Virus 2021-06-24 Completed [facility] Vaccine 00:00:00 [facility] SARS-COV-2 COVID-19 2021-06-24 Completed [facility] PFIZER VACCINE 00:00:00 [facility] Influenza Virus 2021-06-24 Completed [facility] Vaccine 00:00:00 [facility] SARS-COV-2 COVID-19 2021-06-24 Completed [facility] PFIZER VACCINE 00:00:00 [facility] Influenza Virus 2021-06-24 Completed [facility] Vaccine 00:00:00 [facility] SARS-COV-2 COVID-19 2021-06-24 Completed [facility] PFIZER VACCINE 00:00:00 [facility] Influenza Virus 2021-06-24 Completed [facility] Vaccine 00:00:00 [facility] SARS-COV-2 COVID-19 2021-06-24 Completed [facility] PFIZER VACCINE 00:00:00 [facility] Influenza Virus 2021-06-24 Completed [facility] Vaccine 00:00:00 [facility] SARS-COV-2 COVID-19 2021-06-24 Completed [facility] PFIZER VACCINE 00:00:00 [facility] Influenza Virus 2021-06-24 Completed [facility] Vaccine 00:00:00 [facility] SARS-COV-2 COVID-19 2021-06-24 Completed [facility] PFIZER VACCINE 00:00:00 [facility] Influenza Virus 2021-06-24 Completed [facility] Vaccine 00:00:00 [facility] SARS-COV-2 COVID-19 2021-06-24 Completed [facility] PFIZER VACCINE 00:00:00 [facility] Influenza Virus 2021-06-24 Completed [facility] Vaccine 00:00:00 [facility] SARS-COV-2 COVID-19 2021-06-24 Completed [facility] PFIZER VACCINE 00:00:00 [facility] Influenza Virus 2021-06-24 Completed [facility] Vaccine 00:00:00 [facility] SARS-COV-2 COVID-19 2021-06-24 Completed [facility] PFIZER VACCINE 00:00:00 [facility] Influenza Virus 2021-06-24 Completed [facility] Vaccine 00:00:00 [facility] SARS-COV-2 COVID-19 2021-06-24 Completed [facility] PFIZER VACCINE 00:00:00 [facility] Influenza Virus 2021-06-24 Completed [facility] Vaccine 00:00:00 [facility] SARS-COV-2 COVID-19 2021-06-24 Completed [facility] PFIZER VACCINE 00:00:00 [facility] Influenza Virus 2021-06-24 Completed [facility] Vaccine 00:00:00 [facility] SARS-COV-2 COVID-19 2021-06-24 Completed [facility] PFIZER VACCINE 00:00:00 [facility] Influenza Virus 2021-06-24 Completed [facility] Vaccine 00:00:00 [facility] SARS-COV-2 COVID-19 2021-06-24 Completed [facility] PFIZER VACCINE 00:00:00 [facility] Influenza Virus 2021-06-24 Completed [facility] Vaccine 00:00:00 [facility] SARS-COV-2 COVID-19 2021-06-24 Completed [facility] PFIZER VACCINE 00:00:00 [facility] Influenza Virus 2021-06-24 Completed [facility] Vaccine 00:00:00 [facility] SARS-COV-2 COVID-19 2021-06-24 Completed [facility] PFIZER VACCINE 00:00:00 [facility] Influenza Virus 2021-06-24 Completed [facility] Vaccine 00:00:00 [facility] SARS-COV-2 COVID-19 2021-06-24 Completed [facility] PFIZER VACCINE 00:00:00 [facility] Influenza Virus 2021-06-24 Completed [facility] Vaccine 00:00:00 [facility] SARS-COV-2 COVID-19 2021-06-24 Completed [facility] PFIZER VACCINE 00:00:00 [facility] Influenza Virus 2021-06-24 Completed [facility] Vaccine 00:00:00 [facility] SARS-COV-2 COVID-19 2021-06-24 Completed [facility] PFIZER VACCINE 00:00:00 [facility] Influenza Virus 2021-06-24 Completed [facility] Vaccine 00:00:00 [facility] SARS-COV-2 COVID-19 2021-06-24 Completed [facility] PFIZER VACCINE 00:00:00 [facility] Influenza Virus 2021-06-24 Completed [facility] Vaccine 00:00:00 [facility] SARS-COV-2 COVID-19 2021-06-24 Completed [facility] PFIZER VACCINE 00:00:00 [facility] Influenza Virus 2021-06-24 Completed [facility] Vaccine 00:00:00 [facility] SARS-COV-2 COVID-19 2021-06-24 Completed [facility] PFIZER VACCINE 00:00:00 [facility] Influenza Virus 2021-06-24 Completed [facility] Vaccine 00:00:00 [facility] SARS-COV-2 COVID-19 2021-06-24 Completed [facility] PFIZER VACCINE 00:00:00 [facility] Influenza Virus 2021-06-24 Completed [facility] Vaccine 00:00:00 [facility] SARS-COV-2 COVID-19 2021-06-24 Completed [facility] PFIZER VACCINE 00:00:00 [facility] Influenza Virus 2021-06-24 Completed [facility] Vaccine 00:00:00 [facility] SARS-COV-2 COVID-19 2021-06-24 Completed [facility] PFIZER VACCINE 00:00:00 [facility] Influenza Virus 2021-06-24 Completed [facility] Vaccine 00:00:00 [facility] SARS-COV-2 COVID-19 2021-06-24 Completed [facility] PFIZER VACCINE 00:00:00 [facility] Influenza Virus 2021-06-24 Completed [facility] Vaccine 00:00:00 [facility] SARS-COV-2 COVID-19 2021-06-24 Completed [facility] PFIZER VACCINE 00:00:00 [facility] Influenza Virus 2021-06-24 Completed [facility] Vaccine 00:00:00 [facility] SARS-COV-2 COVID-19 2021-06-24 Completed [facility] PFIZER VACCINE 00:00:00 [facility] Influenza Virus 2021-06-24 Completed [facility] Vaccine 00:00:00 [facility] SARS-COV-2 COVID-19 2021-06-24 Completed [facility] PFIZER VACCINE 00:00:00 [facility] Influenza Virus 2021-06-24 Completed [facility] Vaccine 00:00:00 [facility] SARS-COV-2 COVID-19 2021-06-24 Completed [facility] PFIZER VACCINE 00:00:00 [facility] Influenza Virus 2021-06-24 Completed [facility] Vaccine 00:00:00 [facility] SARS-COV-2 COVID-19 2021-06-24 Completed [facility] PFIZER VACCINE 00:00:00 [facility] Influenza Virus 2021-06-24 Completed [facility] Vaccine 00:00:00 [facility] SARS-COV-2 COVID-19 2021-06-24 Completed [facility] PFIZER VACCINE 00:00:00 [facility] Influenza Virus 2021-06-24 Completed [facility] Vaccine 00:00:00 [facility] SARS-COV-2 COVID-19 2021-06-24 Completed [facility] PFIZER VACCINE 00:00:00 [facility] Influenza Virus 2021-06-24 Completed [facility] Vaccine 00:00:00 [facility] SARS-COV-2 COVID-19 2021-06-24 Completed [facility] PFIZER VACCINE 00:00:00 [facility] Influenza Virus 2021-06-24 Completed [facility] Vaccine 00:00:00 [facility] SARS-COV-2 COVID-19 2021-06-24 Completed [facility] PFIZER VACCINE 00:00:00 [facility] Influenza Virus 2021-06-24 Completed [facility] Vaccine 00:00:00 [facility] SARS-COV-2 COVID-19 2021-06-24 Completed [facility] PFIZER VACCINE 00:00:00 [facility] Influenza Virus 2021-06-24 Completed [facility] Vaccine 00:00:00 [facility] SARS-COV-2 COVID-19 2021-06-24 Completed [facility] PFIZER VACCINE 00:00:00 [facility] Influenza Virus 2021-06-24 Completed [facility] Vaccine 00:00:00 [facility] SARS-COV-2 COVID-19 2021-06-24 Completed [facility] PFIZER VACCINE 00:00:00 [facility] Influenza Virus 2021-06-24 Completed [facility] Vaccine 00:00:00 [facility] SARS-COV-2 COVID-19 2021-06-24 Completed [facility] PFIZER VACCINE 00:00:00 [facility] Influenza Virus 2021-06-24 Completed [facility] Vaccine 00:00:00 [facility] SARS-COV-2 COVID-19 2021-06-24 Completed [facility] PFIZER VACCINE 00:00:00 [facility] Influenza Virus 2021-06-24 Completed [facility] Vaccine 00:00:00 [facility] SARS-COV-2 COVID-19 2021-06-24 Completed [facility] PFIZER VACCINE 00:00:00 [facility] Influenza Virus 2021-06-24 Completed [facility] Vaccine 00:00:00 [facility] SARS-COV-2 COVID-19 2021-06-24 Completed [facility] PFIZER VACCINE 00:00:00 [facility] Influenza Virus 2021-06-24 Completed [facility] Vaccine 00:00:00 [facility] SARS-COV-2 COVID-19 2021-06-24 Completed [facility] PFIZER VACCINE 00:00:00 [facility] Influenza Virus 2021-06-24 Completed [facility] Vaccine 00:00:00 [facility] SARS-COV-2 COVID-19 2021-06-24 Completed [facility] PFIZER VACCINE 00:00:00 [facility] Influenza Virus 2021-06-24 Completed [facility] Vaccine 00:00:00 [facility] SARS-COV-2 COVID-19 2021-06-24 Completed [facility] PFIZER VACCINE 00:00:00 [facility] Influenza Virus 2021-06-24 Completed [facility] Vaccine 00:00:00 [facility] SARS-COV-2 COVID-19 2021-06-24 Completed [facility] PFIZER VACCINE 00:00:00 [facility] Influenza Virus 2021-06-24 Completed [facility] Vaccine 00:00:00 [facility] SARS-COV-2 COVID-19 2020-10-08 Completed [facility] PFIZER VACCINE 00:00:00 [facility] SARS-COV-2 COVID-19 2020-10-08 Completed [facility] PFIZER VACCINE 00:00:00 [facility] SARS-COV-2 COVID-19 2020-10-08 Completed [facility] PFIZER VACCINE 00:00:00 [facility] SARS-COV-2 COVID-19 2020-10-08 Completed [facility] PFIZER VACCINE 00:00:00 [facility] SARS-COV-2 COVID-19 2020-10-08 Completed [facility] PFIZER VACCINE 00:00:00 [facility] SARS-COV-2 COVID-19 2020-10-08 Completed [facility] PFIZER VACCINE 00:00:00 [facility] SARS-COV-2 COVID-19 2020-10-08 Completed [facility] PFIZER VACCINE 00:00:00 [facility] SARS-COV-2 COVID-19 2020-10-08 Completed [facility] PFIZER VACCINE 00:00:00 [facility] SARS-COV-2 COVID-19 2020-10-08 Completed [facility] PFIZER VACCINE 00:00:00 [facility] SARS-COV-2 COVID-19 2020-10-08 Completed [facility] PFIZER VACCINE 00:00:00 [facility] SARS-COV-2 COVID-19 2020-10-08 Completed [facility] PFIZER VACCINE 00:00:00 [facility] SARS-COV-2 COVID-19 2020-10-08 Completed [facility] PFIZER VACCINE 00:00:00 [facility] SARS-COV-2 COVID-19 2020-10-08 Completed [facility] PFIZER VACCINE 00:00:00 [facility] SARS-COV-2 COVID-19 2020-10-08 Completed [facility] PFIZER VACCINE 00:00:00 [facility] SARS-COV-2 COVID-19 2020-10-08 Completed [facility] PFIZER VACCINE 00:00:00 [facility] SARS-COV-2 COVID-19 2020-10-08 Completed [facility] PFIZER VACCINE 00:00:00 [facility] SARS-COV-2 COVID-19 2020-10-08 Completed [facility] PFIZER VACCINE 00:00:00 [facility] SARS-COV-2 COVID-19 2020-10-08 Completed [facility] PFIZER VACCINE 00:00:00 [facility] SARS-COV-2 COVID-19 2020-10-08 Completed [facility] PFIZER VACCINE 00:00:00 [facility] SARS-COV-2 COVID-19 2020-10-08 Completed [facility] PFIZER VACCINE 00:00:00 [facility] SARS-COV-2 COVID-19 2020-10-08 Completed [facility] PFIZER VACCINE 00:00:00 [facility] SARS-COV-2 COVID-19 2020-10-08 Completed [facility] PFIZER VACCINE 00:00:00 [facility] SARS-COV-2 COVID-19 2020-10-08 Completed [facility] PFIZER VACCINE 00:00:00 [facility] SARS-COV-2 COVID-19 2020-10-08 Completed [facility] PFIZER VACCINE 00:00:00 [facility] SARS-COV-2 COVID-19 2020-10-08 Completed [facility] PFIZER VACCINE 00:00:00 [place] [facility] SARS-COV-2 COVID-19 2020-10-08 Completed [facility] PFIZER VACCINE 00:00:00 [facility] SARS-COV-2 COVID-19 2020-10-08 Completed [facility] PFIZER VACCINE 00:00:00 [facility] SARS-COV-2 COVID-19 2020-10-08 Completed [facility] PFIZER VACCINE 00:00:00 [facility] SARS-COV-2 COVID-19 2020-10-08 Completed [facility] PFIZER VACCINE 00:00:00 [facility] SARS-COV-2 COVID-19 2020-10-08 Completed [facility] PFIZER VACCINE 00:00:00 [facility] SARS-COV-2 COVID-19 2020-10-08 Completed [facility] PFIZER VACCINE 00:00:00 [facility] SARS-COV-2 COVID-19 2020-10-08 Completed [facility] PFIZER VACCINE 00:00:00 [facility] SARS-COV-2 COVID-19 2020-10-08 Completed [facility] PFIZER VACCINE 00:00:00 [facility] SARS-COV-2 COVID-19 2020-10-08 Completed [facility] PFIZER VACCINE 00:00:00 [facility] SARS-COV-2 COVID-19 2020-10-08 Completed [facility] PFIZER VACCINE 00:00:00 [facility] SARS-COV-2 COVID-19 2020-10-08 Completed [facility] PFIZER VACCINE 00:00:00 [facility] SARS-COV-2 COVID-19 2020-10-08 Completed [facility] PFIZER VACCINE 00:00:00 [facility] SARS-COV-2 COVID-19 2020-10-08 Completed [facility] PFIZER VACCINE 00:00:00 [facility] SARS-COV-2 COVID-19 2020-10-08 Completed [facility] PFIZER VACCINE 00:00:00 [facility] SARS-COV-2 COVID-19 2020-10-08 Completed [facility] PFIZER VACCINE 00:00:00 [facility] SARS-COV-2 COVID-19 2020-10-08 Completed [facility] PFIZER VACCINE 00:00:00 [facility] SARS-COV-2 COVID-19 2020-10-08 Completed [facility] PFIZER VACCINE 00:00:00 [facility] SARS-COV-2 COVID-19 2020-10-08 Completed [facility] PFIZER VACCINE 00:00:00 [facility] SARS-COV-2 COVID-19 2020-10-08 Completed [facility] PFIZER VACCINE 00:00:00 [facility] SARS-COV-2 COVID-19 2020-10-08 Completed [facility] PFIZER VACCINE 00:00:00 [facility] SARS-COV-2 COVID-19 2020-10-08 Completed [facility] PFIZER VACCINE 00:00:00 [facility] SARS-COV-2 COVID-19 2020-10-08 Completed [facility] PFIZER VACCINE 00:00:00 [facility] SARS-COV-2 COVID-19 2020-10-08 Completed [facility] PFIZER VACCINE 00:00:00 [facility] SARS-COV-2 COVID-19 2020-10-08 Completed [facility] PFIZER VACCINE 00:00:00 [facility] SARS-COV-2 COVID-19 2020-10-08 Completed [facility] PFIZER VACCINE 00:00:00 [facility] SARS-COV-2 COVID-19 2020-10-08 Completed [facility]ACCINE 00:00:00 [facility] SARS-COV-2 COVID-19 2020-10-08 Completed [facility] VACCINE 00:00:00 [facility] SARS-COV-2 COVID-19 2020-10-08 Completed [facility] VACCINE 00:00:00 [facility] SARS-COV-2 COVID-19 2020-10-08 Completed [facility] VACCINE 00:00:00 [facility] SARS-COV-2 COVID-19 2020-10-08 Completed [facility]ACC[facility] 00[facility]00:00 [facility] SARS-COV-2 COVID-19 2020-10-08 Completed [facility] VACCINE 00:00:00 [facility] SARS-COV-2 COVID-19 2020-10-08 Completed [facility] VACCINE 00:00:00 [facility] SARS-COV-2 COVID-19 2020-10-08 Completed [facility] VACCINE 00:00:00 [facility] SARS-COV-2 COVID-19 2020-10-08 Completed [facility] VACCINE 00:00:00 [facility] SARS-COV-2 COVID-19 2020-10-08 Completed [facility] VACCINE 00:00:00 [facility] SARS-COV-2 COVID-19 2020-10-08 Completed [facility] PFIZ[facility] VACCINE 00:00:00 [facility] SARS-COV-2 COVID-19 2020-10-08 Completed [facility] VACCINE 00:00:00 [facility] SARS-COV-2 COVID-19 2020-10-08 Completed [facility] VACCINE 00:00:00 [facility] SARS-COV-2 COVID-19 2020-10-08 Completed [facility] VACCINE 00:00:00 [facility] SARS-COV-2 COVID-19 2020-10-08 Completed [facility] PFIZ[facility] VACCINE 00:00:00 [facility] SARS-COV-2 COVID-19 2020-10-08 Completed [facility]FIZ[facility] VACCINE 00:00:00 [facility] SARS-COV-2 COVID-19 2020-10-08 Completed [facility] VACCINE 00:00:00 [facility] SARS-COV-2 COVID-19 2020-10-08 Completed [facility] VACCINE 00:00:00 [facility] SARS-COV-2 COVID-19 2020-10-08 Completed [facility] VACCINE 00:00:00 [facility] SARS-COV-2 COVID-19 2020-10-08 Completed [facility]FIZ[facility] VACCINE 00:00:00 [facility] SARS-COV-2 COVID-19 2020-10-08 Completed [facility]FIZ[facility] VACCINE 00:00:00 [facility] SARS-COV-2 COVID-19 2020-10-08 Completed [facility] VACCINE 00:00:00 [facility] SARS-COV-2 COVID-19 2020-10-08 Completed [facility] PFIZER VACCINE 00:00:00 [facility] SARS-COV-2 COVID-19 2020-10-08 Completed [facility] PFIZER VACCINE 00:00:00 [facility] SARS-COV-2 COVID-19 2020-10-08 Completed [facility] PFIZER VACCINE 00:00:00 [facility] SARS-COV-2 COVID-19 2020-10-08 Completed [facility] VACCINE 00:00:00 [facility] SARS-COV-2 COVID-19 2020-10-08 Completed [facility]FIZ[facility] VACCINE 00:00:00 [facility] SARS-COV-2 COVID-19 2020-10-08 Completed [facility] VACCINE 00:00:00 [facility] SARS-COV-2 COVID-19 2020-10-08 Completed [facility] VACCINE 00:00:00 [facility] SARS-COV-2 COVID-19 2020-10-08 Completed [facility] VACCINE 00:00:00 [facility] SARS-COV-2 COVID-19 2020-10-08 Completed [facility]FIZ[facility] VACCINE 00:00:00 [facility] SARS-COV-2 COVID-19 2020-10-08 Completed [facility] VACCINE 00:00:00 [facility] SARS-COV-2 COVID-19 2020-10-08 Completed [facility] PFIZER VACCINE 00:00:00 [facility] SARS-COV-2 COVID-19 2020-10-08 Completed [facility] VACCINE 00:00:00 [facility] SARS-COV-2 COVID-19 2020-10-08 Completed [facility] VACCINE 00:00:00 [facility] SARS-COV-2 COVID-19 2020-10-08 Completed [facility] VACCINE 00:00:00 [facility] SARS-COV-2 COVID-19 2020-10-08 Completed [facility] VACCINE 00:00:00 [facility] SARS-COV-2 COVID-19 2020-10-08 Completed [facility]FIZER VACCINE 00:00:00 [facility] SARS-COV-2 COVID-19 2020-10-08 Completed [facility] VACCINE 00:00:00 [facility] SARS-COV-2 COVID-19 2020-10-08 Completed [facility]FIZ[facility] VACCINE 00:00:00 [facility] SARS-COV-2 COVID-19 2020-10-08 Completed [facility] VACCINE 00:00:00 [facility] SARS-COV-2 COVID-19 2020-10-08 Completed [facility] PFIZER VACCINE 00:00:00 [facility] SARS-COV-2 COVID-19 2020-10-08 Completed [facility]FIZ[facility] VACCINE 00:00:00 [facility] SARS-COV-2 COVID-19 2020-10-08 Completed [facility]FIZ[facility] VACCINE 00:00:00 [facility] SARS-COV-2 COVID-19 2020-10-08 Completed [facility]ACCINE 00:00:00 [facility] SARS-COV-2 COVID-19 2020-10-08 Completed [facility] VACCINE 00:00:00 [facility] SARS-COV-2 COVID-19 2020-10-08 Completed [facility] VACCINE 00:00:00 [facility] SARS-COV-2 COVID-19 2020-10-08 Completed [facility] VACCINE 00:00:00 [facility] SARS-COV-2 COVID-19 2020-10-08 Completed [facility] VACCINE 00:00:00 [facility] SARS-COV-2 COVID-19 2020-10-08 Completed [facility] VACCINE 00:00:00 [facility] SARS-COV-2 COVID-19 2020-10-08 Completed [facility] PFIZER VACCINE 00:00:00 [facility] SARS-COV-2 COVID-19 2020-10-08 Completed [facility] VACCINE 00:00:00 [facility] SARS-COV-2 COVID-19 2020-10-08 Completed [facility] VACCINE 00:00:00 [facility] SARS-COV-2 COVID-19 2020-10-08 Completed [facility]ACCINE 00:00:00 [facility] SARS-COV-2 COVID-19 2020-10-08 Completed [facility]FIZER VACCINE 00:00:00 [facility] SARS-COV-2 COVID-19 2020-10-08 Completed [facility] VACCINE 00:00:00 [facility] SARS-COV-2 COVID-19 2020-10-08 Completed [facility] PFIZ[facility] VACCINE 00:00:00 [facility] SARS-COV-2 COVID-19 2020-10-08 Completed [facility]ACCINE 00:00:00 [facility] SARS-COV-2 COVID-19 2020-10-08 Completed [facility] VACCINE 00:00:00 [facility] SARS-COV-2 COVID-19 2020-10-08 Completed [facility]FI[facility] VACCINE 00:00:00 [facility] SARS-COV-2 COVID-19 2020-10-08 Completed [facility] PFIZ[facility] VACCINE 00:00:00 [facility] SARS-COV-2 COVID-19 2020-10-08 Completed [facility] VACCINE 00:00:00 [facility] SARS-COV-2 COVID-19 2020-10-08 Completed [facility] VACCINE 00:00:00 [facility] SARS-COV-2 COVID-19 2020-10-08 Completed [facility] VACCINE 00:00:00 [facility] SARS-COV-2 COVID-19 2020-10-08 Completed [facility] VACCINE 00:00:00 [facility] SARS-COV-2 COVID-19 2020-10-08 Completed [facility] VACCINE 00:00:00 [facility] SARS-COV-2 COVID-19 2020-10-08 Completed [facility]FIZ[facility] VACCINE 00:00:00 [facility] SARS-COV-2 COVID-19 2020-10-08 Completed [facility] VACCINE 00:00:00 [facility] SARS-COV-2 COVID-19 2020-10-08 Completed [facility]ACCINE 00:00:00 [place] [facility] SARS-COV-2 COVID-19 2020-10-08 Completed [facility] PFIZER VACCINE 00:00:00 [facility] SARS-COV-2 COVID-19 2020-10-08 Completed [facility] PFIZER VACCINE 00:00:00 [facility] SARS-COV-2 COVID-19 2020-10-08 Completed [facility] PFIZER VACCINE 00:00:00 [facility] SARS-COV-2 COVID-19 2020-10-08 Completed [facility] PFIZER VACCINE 00:00:00 [facility] SARS-COV-2 COVID-19 2020-10-08 Completed [facility] PFIZER VACCINE 00:00:00 [facility] SARS-COV-2 COVID-19 2020-10-08 Completed [facility] PFIZER VACCINE 00:00:00 [facility] SARS-COV-2 COVID-19 2020-10-08 Completed [facility] PFIZER VACCINE 00:00:00 [facility] SARS-COV-2 COVID-19 2020-10-08 Completed [facility] PFIZER VACCINE 00:00:00 [facility] SARS-COV-2 COVID-19 2020-10-08 Completed [facility] PFIZER VACCINE 00:00:00 [facility] SARS-COV-2 COVID-19 2020-10-08 Completed [facility] PFIZER VACCINE 00:00:00 [facility] SARS-COV-2 COVID-19 2020-10-08 Completed [facility] PFIZER VACCINE 00:00:00 [facility] SARS-COV-2 COVID-19 2020-10-08 Completed [facility] PFIZER VACCINE 00:00:00 [facility] SARS-COV-2 COVID-19 2020-10-08 Completed [facility] PFIZER VACCINE 00:00:00 [facility] SARS-COV-2 COVID-19 2020-10-08 Completed [facility] PFIZER VACCINE 00:00:00 [facility] SARS-COV-2 COVID-19 2020-10-08 Completed [facility] PFIZER VACCINE 00:00:00 [facility] SARS-COV-2 COVID-19 2020-10-08 Completed [facility] PFIZER VACCINE 00:00:00 [facility] SARS-COV-2 COVID-19 2020-10-08 Completed [facility] PFIZER VACCINE 00:00:00 [facility] SARS-COV-2 COVID-19 2020-10-08 Completed [facility] PFIZER VACCINE 00:00:00 [facility] SARS-COV-2 COVID-19 2020-10-08 Completed [facility] PFIZER VACCINE 00:00:00 [facility] SARS-COV-2 COVID-19 2020-10-08 Completed [facility] PFI[facility] VACCINE 00:00:00 [facility] SARS-COV-2 COVID-19 2020-10-08 Completed [facility] PFI[facility] VACCINE 00:00:00 [facility] SARS-COV-2 COVID-19 2020-09-17 Completed [facility] PFI[facility] VACCINE 00:00:00 [facility] SARS-COV-2 COVID-19 2020-09-17 Completed [facility] PFIZER VACCINE 00:00:00 [facility] SARS-COV-2 COVID-19 2020-09-17 Completed [facility] VACCINE 00:00:00 [facility] SARS-COV-2 COVID-19 2020-09-17 Completed [facility] PFI[facility]ER VACCINE 00:00:00 [facility] SARS-COV-2 COVID-19 2020-09-17 Completed [facility] PFIZER VACCINE 00:00:00 [facility] SARS-COV-2 COVID-19 2020-09-17 Completed [facility] PFIZER VACCINE 00:00:00 [facility] SARS-COV-2 COVID-19 2020-09-17 Completed [facility] PFIZER VACCINE 00:00:00 [facility] SARS-COV-2 COVID-19 2020-09-17 Completed [facility]FI[facility] VACCINE 00:00:00 [facility] SARS-COV-2 COVID-19 2020-09-17 Completed [facility] PFIZER VACCINE 00:00:00 [facility] SARS-COV-2 COVID-19 2020-09-17 Completed [facility] PFIZER VACCINE 00:00:00 [facility] SARS-COV-2 COVID-19 2020-09-17 Completed [facility] PFIZER VACCINE 00:00:00 [facility] SARS-COV-2 COVID-19 2020-09-17 Completed [facility] PFIZER VACCINE 00:00:00 [facility] SARS-COV-2 COVID-19 2020-09-17 Completed [facility] PFIZER VACCINE 00:00:00 [facility] SARS-COV-2 COVID-19 2020-09-17 Completed [facility] PFIZER VACCINE 00:00:00 [facility] SARS-COV-2 COVID-19 2020-09-17 Completed [facility] PFIZER VACCINE 00:00:00 [facility] SARS-COV-2 COVID-19 2020-09-17 Completed [facility] PFIZER VACCINE 00:00:00 [facility] SARS-COV-2 COVID-19 2020-09-17 Completed [facility] PFIZER VACCINE 00:00:00 [facility] SARS-COV-2 COVID-19 2020-09-17 Completed [facility] PFIZER VACCINE 00:00:00 [facility] SARS-COV-2 COVID-19 2020-09-17 Completed [facility] PFIZER VACCINE 00:00:00 [facility] SARS-COV-2 COVID-19 2020-09-17 Completed [facility] PFIZER VACCINE 00:00:00 [facility] SARS-COV-2 COVID-19 2020-09-17 Completed [facility] PFIZER VACCINE 00:00:00 [facility] SARS-COV-2 COVID-19 2020-09-17 Completed [facility] PFIZER VACCINE 00:00:00 [facility] SARS-COV-2 COVID-19 2020-09-17 Completed [facility] PFIZER VACCINE 00:00:00 [facility] SARS-COV-2 COVID-19 2020-09-17 Completed [facility] PFIZER VACCINE 00:00:00 [facility] SARS-COV-2 COVID-19 2020-09-17 Completed [facility] PFIZER VACCINE 00:00:00 [facility] SARS-COV-2 COVID-19 2020-09-17 Completed [facility] PFIZER VACCINE 00:00:00 [facility] SARS-COV-2 COVID-19 2020-09-17 Completed [facility] PFIZER VACCINE 00:00:00 [facility] SARS-COV-2 COVID-19 2020-09-17 Completed [facility] PFIZER VACCINE 00:00:00 [facility] SARS-COV-2 COVID-19 2020-09-17 Completed [facility] PFIZER VACCINE 00:00:00 [facility] SARS-COV-2 COVID-19 2020-09-17 Completed [facility] PFIZER VACCINE 00:00:00 [facility] SARS-COV-2 COVID-19 2020-09-17 Completed [facility] PFIZER VACCINE 00:00:00 [facility] SARS-COV-2 COVID-19 2020-09-17 Completed [facility] PFIZER VACCINE 00:00:00 [facility] SARS-COV-2 COVID-19 2020-09-17 Completed [facility] PFIZER VACCINE 00:00:00 [facility] SARS-COV-2 COVID-19 2020-09-17 Completed [facility] PFIZER VACCINE 00:00:00 [facility] SARS-COV-2 COVID-19 2020-09-17 Completed [facility] PFIZER VACCINE 00:00:00 [facility] SARS-COV-2 COVID-19 2020-09-17 Completed [facility] PFIZER VACCINE 00:00:00 [facility] SARS-COV-2 COVID-19 2020-09-17 Completed [facility] PFIZER VACCINE 00:00:00 [facility] SARS-COV-2 COVID-19 2020-09-17 Completed [facility] PFIZER VACCINE 00:00:00 [facility] SARS-COV-2 COVID-19 2020-09-17 Completed [facility] PFIZER VACCINE 00:00:00 [facility] SARS-COV-2 COVID-19 2020-09-17 Completed [facility] PFIZER VACCINE 00:00:00 [facility] SARS-COV-2 COVID-19 2020-09-17 Completed [facility] PFIZER VACCINE 00:00:00 [facility] SARS-COV-2 COVID-19 2020-09-17 Completed [facility] PFIZER VACCINE 00:00:00 [facility] SARS-COV-2 COVID-19 2020-09-17 Completed [facility] PFIZER VACCINE 00:00:00 [facility] SARS-COV-2 COVID-19 2020-09-17 Completed [facility] PFIZER VACCINE 00:00:00 [facility] SARS-COV-2 COVID-19 2020-09-17 Completed [facility] PFIZER VACCINE 00:00:00 [facility] SARS-COV-2 COVID-19 2020-09-17 Completed [facility] PFIZER VACCINE 00:00:00 [facility] SARS-COV-2 COVID-19 2020-09-17 Completed [facility] PFIZER VACCINE 00:00:00 [facility] SARS-COV-2 COVID-19 2020-09-17 Completed [facility] PFIZER VACCINE 00:00:00 [facility] SARS-COV-2 COVID-19 2020-09-17 Completed [facility] PFIZER VACCINE 00:00:00 [facility] SARS-COV-2 COVID-19 2020-09-17 Completed [facility] PFIZER VACCINE 00:00:00 [facility] SARS-COV-2 COVID-19 2020-09-17 Completed [facility] PFIZER VACCINE 00:00:00 [facility] SARS-COV-2 COVID-19 2020-09-17 Completed [facility] PFIZER VACCINE 00:00:00 [facility] SARS-COV-2 COVID-19 2020-09-17 Completed [facility] PFIZER VACCINE 00:00:00 [facility] SARS-COV-2 COVID-19 2020-09-17 Completed [facility] PFIZER VACCINE 00:00:00 [facility] SARS-COV-2 COVID-19 2020-09-17 Completed [facility] PFIZER VACCINE 00:00:00 [facility] SARS-COV-2 COVID-19 2020-09-17 Completed [facility] PFIZER VACCINE 00:00:00 [facility] SARS-COV-2 COVID-19 2020-09-17 Completed [facility] PFIZER VACCINE 00:00:00 [facility] SARS-COV-2 COVID-19 2020-09-17 Completed [facility] PFIZER VACCINE 00:00:00 [facility] SARS-COV-2 COVID-19 2020-09-17 Completed [facility] PFIZER VACCINE 00:00:00 [facility] SARS-COV-2 COVID-19 2020-09-17 Completed [facility] PFIZER VACCINE 00:00:00 [facility] SARS-COV-2 COVID-19 2020-09-17 Completed [facility] PFIZER VACCINE 00:00:00 [facility] SARS-COV-2 COVID-19 2020-09-17 Completed [facility] PFIZER VACCINE 00:00:00 [facility] SARS-COV-2 COVID-19 2020-09-17 Completed [facility] PFIZER VACCINE 00:00:00 [facility] SARS-COV-2 COVID-19 2020-09-17 Completed [facility] PFIZER VACCINE 00:00:00 [facility] SARS-COV-2 COVID-19 2020-09-17 Completed [facility] PFIZER VACCINE 00:00:00 [facility] SARS-COV-2 COVID-19 2020-09-17 Completed [facility] PFIZER VACCINE 00:00:00 [facility] SARS-COV-2 COVID-19 2020-09-17 Completed [facility] PFIZER VACCINE 00:00:00 [facility] SARS-COV-2 COVID-19 2020-09-17 Completed [facility] PFIZER VACCINE 00:00:00 [facility] SARS-COV-2 COVID-19 2020-09-17 Completed [facility] PFIZER VACCINE 00:00:00 [facility] SARS-COV-2 COVID-19 2020-09-17 Completed [facility] PFIZER VACCINE 00:00:00 [facility] SARS-COV-2 COVID-19 2020-09-17 Completed [facility] PFIZER VACCINE 00:00:00 [facility] SARS-COV-2 COVID-19 2020-09-17 Completed [facility] PFIZER VACCINE 00:00:00 [facility] SARS-COV-2 COVID-19 2020-09-17 Completed [facility] PFIZER VACCINE 00:00:00 [facility] SARS-COV-2 COVID-19 2020-09-17 Completed [facility] PFIZER VACCINE 00:00:00 [facility] SARS-COV-2 COVID-19 2020-09-17 Completed [facility] PFIZER VACCINE 00:00:00 [facility] SARS-COV-2 COVID-19 2020-09-17 Completed [facility] PFIZER VACCINE 00:00:00 [facility] SARS-COV-2 COVID-19 2020-09-17 Completed [facility] PFIZER VACCINE 00:00:00 [facility] SARS-COV-2 COVID-19 2020-09-17 Completed [facility] PFIZER VACCINE 00:00:00 [facility] SARS-COV-2 COVID-19 2020-09-17 Completed [facility] PFIZER VACCINE 00:00:00 [facility] SARS-COV-2 COVID-19 2020-09-17 Completed [facility] PFIZER VACCINE 00:00:00 [facility] SARS-COV-2 COVID-19 2020-09-17 Completed [facility] PFIZER VACCINE 00:00:00 [facility] SARS-COV-2 COVID-19 2020-09-17 Completed [facility] PFIZER VACCINE 00:00:00 [facility] SARS-COV-2 COVID-19 2020-09-17 Completed [facility] PFIZER VACCINE 00:00:00 [facility] SARS-COV-2 COVID-19 2020-09-17 Completed [facility] PFIZER VACCINE 00:00:00 [facility] SARS-COV-2 COVID-19 2020-09-17 Completed [facility] PFIZER VACCINE 00:00:00 [facility] SARS-COV-2 COVID-19 2020-09-17 Completed [facility] PFIZER VACCINE 00:00:00 [facility] SARS-COV-2 COVID-19 2020-09-17 Completed [facility] PFIZER VACCINE 00:00:00 [facility] SARS-COV-2 COVID-19 2020-09-17 Completed [facility] PFIZER VACCINE 00:00:00 [facility] SARS-COV-2 COVID-19 2020-09-17 Completed [facility] PFIZER VACCINE 00:00:00 [facility] SARS-COV-2 COVID-19 2020-09-17 Completed [facility] PFIZER VACCINE 00:00:00 [facility] SARS-COV-2 COVID-19 2020-09-17 Completed [facility] PFIZER VACCINE 00:00:00 [facility] SARS-COV-2 COVID-19 2020-09-17 Completed [facility] PFIZER VACCINE 00:00:00 [facility] SARS-COV-2 COVID-19 2020-09-17 Completed [facility] PFIZER VACCINE 00:00:00 [facility] SARS-COV-2 COVID-19 2020-09-17 Completed [facility] PFIZER VACCINE 00:00:00 [facility] SARS-COV-2 COVID-19 2020-09-17 Completed [facility] PFI[facility]ER VACCINE 00:00:00 [facility] SARS-COV-2 COVID-19 2020-09-17 Completed [facility] PFIZER VACCINE 00:00:00 [facility] SARS-COV-2 COVID-19 2020-09-17 Completed [facility] PFI[facility]ER VACCINE 00:00:00 [facility] SARS-COV-2 COVID-19 2020-09-17 Completed [facility] P[facility]ER VACCINE 00:00:00 [facility] SARS-COV-2 COVID-19 2020-09-17 Completed [facility] PFI[facility]ER VACCINE 00:00:00 [facility] SARS-COV-2 COVID-19 2020-09-17 Completed [facility] PFIZER VACCINE 00:00:00 [facility] SARS-COV-2 COVID-19 2020-09-17 Completed [facility] PFIZER VACCINE 00:00:00 [facility] SARS-COV-2 COVID-19 2020-09-17 Completed [facility] PFIZER VACCINE 00:00:00 [facility] SARS-COV-2 COVID-19 2020-09-17 Completed [facility] PFIZER VACCINE 00:00:00 [facility] SARS-COV-2 COVID-19 2020-09-17 Completed [facility] PFIZER VACCINE 00:00:00 [facility] SARS-COV-2 COVID-19 2020-09-17 Completed [facility] PFI[facility]ER VACCINE 00:00:00 [facility] SARS-COV-2 COVID-19 2020-09-17 Completed [facility]ACCINE 00:00:00 [facility] [facility] SARS-COV-2 COVID-19 2020-09-17 Completed Unive rsity of PFIZER VACCINE 00:00:00 [facility] SARS-COV-2 COVID-19 2020-09-17 Completed Unive rsity of PFIZER VACCINE 00:00:00 [facility] SARS-COV-2 COVID-19 2020-09-17 Completed Unive rsity of PFIZER VACCINE 00:00:00 [facility] SARS-COV-2 COVID-19 2020-09-17 Completed Unive rsity of PFIZER VACCINE 00:00:00 [facility] SARS-COV-2 COVID-19 2020-09-17 Completed Unive rsity of PFIZER VACCINE 00:00:00 [facility] SARS-COV-2 COVID-19 2020-09-17 Completed Unive rsity of PFIZER VACCINE 00:00:00 [facility] SARS-COV-2 COVID-19 2020-09-17 Completed Unive rsity of PFIZER VACCINE 00:00:00 [facility] SARS-COV-2 COVID-19 2020-09-17 Completed Unive rsity of PFIZER VACCINE 00:00:00 [facility] SARS-COV-2 COVID-19 2020-09-17 Completed Unive rsity of PFIZER VACCINE 00:00:00 [facility] SARS-COV-2 COVID-19 2020-09-17 Completed Unive rsity of PFIZER VACCINE 00:00:00 [facility] SARS-COV-2 COVID-19 2020-09-17 Completed Unive rsity of PFIZER VACCINE 00:00:00 [facility] SARS-COV-2 COVID-19 2020-09-17 Completed Unive rsity of PFIZER VACCINE 00:00:00 [facility] SARS-COV-2 COVID-19 2020-09-17 Completed Unive rsity of PFIZER VACCINE 00:00:00 [facility] SARS-COV-2 COVID-19 2020-09-17 Completed Unive rsity of PFIZER VACCINE 00:00:00 [facility] SARS-COV-2 COVID-19 2020-09-17 Completed Unive rsity of PFIZER VACCINE 00:00:00 [facility] SARS-COV-2 COVID-19 2020-09-17 Completed Unive rsity of PFIZER VACCINE 00:00:00 [facility] SARS-COV-2 COVID-19 2020-09-17 Completed Unive rsity of PFIZER VACCINE 00:00:00 [facility] SARS-COV-2 COVID-19 2020-09-17 Completed Unive rsity of PFIZER VACCINE 00:00:00 [facility] SARS-COV-2 COVID-19 2020-09-17 Completed Unive rsity of PFIZER VACCINE 00:00:00 [facility] SARS-COV-2 COVID-19 2020-09-17 Completed Unive rsity of PFIZER VACCINE 00:00:00 [facility] SARS-COV-2 COVID-19 2020-09-17 Completed Unive rsity of PFIZER VACCINE 00:00:00 [facility] SARS-COV-2 COVID-19 2020-09-17 Completed Unive rsity of PFIZER VACCINE 00:00:00 [facility] SARS-COV-2 COVID-19 2020-09-17 Completed Unive rsity of PFIZER VACCINE 00:00:00 [facility] SARS-COV-2 COVID-19 2020-09-17 Completed Unive rsity of PFIZER VACCINE 00:00:00 [facility] SARS-COV-2 COVID-19 2020-09-17 Completed Unive rsity of PFIZER VACCINE 00:00:00 [facility] SARS-COV-2 COVID-19 2020-09-17 Completed Unive rsity of PFIZER VACCINE 00:00:00 [facility] SARS-COV-2 COVID-19 2020-09-17 Completed Unive rsity of PFIZER VACCINE 00:00:00 [facility] SARS-COV-2 COVID-19 2020-09-17 Completed Unive rsity of PFIZER VACCINE 00:00:00 [facility] SARS-COV-2 COVID-19 2020-09-17 Completed Unive rsity of PFIZER VACCINE 00:00:00 [facility] SARS-COV-2 COVID-19 2020-09-17 Completed Unive rsity of PFIZER VACCINE 00:00:00 [facility] SARS-COV-2 COVID-19 2020-09-17 Completed Unive rsity of PFIZER VACCINE 00:00:00 [facility] SARS-COV-2 COVID-19 2020-09-17 Completed Unive rsity of PFIZER VACCINE 00:00:00 [facility] SARS-COV-2 COVID-19 2020-09-17 Completed Unive rsity of PFIZER VACCINE 00:00:00 [facility] SARS-COV-2 COVID-19 2020-09-17 Completed Unive rsity of PFIZER VACCINE 00:00:00 [facility] Vital Signs Vital Name Observation Time Observation Value Comments Source Body weight 2023-02-02 14:19:00 63.504 kg [facility] BMI 2023-02-02 14:19:00 27.34 kg/m2 [facility] Body weight 2023-02-02 14:19:00 63.504 kg [facility] BMI 2023-02-02 14:19:00 27.34 kg/m2 [facility] Systolic blood 2023-01-14 16:50:00 115 mm[Hg] Univer sity of pressure [facility] Diastolic blood 2023-01-14 16:50:00 67 mm[Hg] Unive rsity of pressure [facility] Heart rate 2023-01-14 16:50:00 70 /min [facility] Respiratory rate 2023-01-14 16:50:00 19 /min Univ ersity of [facility] Oxygen saturation in 2023-01-14 16:50:00 97 /min University of Arterial blood by [facility] Pulse oximetry [facility] Body temperature 2023-01-14 16:34:00 36.72 Isaura Univ ersity of [facility] Body height 2023-01-14 15:03:00 152.4 cm [facility] Body weight 2023-01-14 15:03:00 62.143 kg [facility] BMI 2023-01-14 15:03:00 26.76 kg/m2 [facility] Systolic blood 2023-01-14 16:45:00 106 mm[Hg] Univer sity of pressure [facility] Diastolic blood 2023-01-14 16:45:00 76 mm[Hg] Unive rsity of pressure [facility] Respiratory rate 2023-01-14 16:45:00 20 /min Univ ersity of [facility] Oxygen saturation in 2023-01-14 16:45:00 97 /min University of Arterial blood by [facility] Pulse oxim[facility] Heart rate 2023-01-14 16:40:00 74 /min [facility] Body temperature 2023-01-14 16:34:00 36.72 Isaura [facility] Body height 2023-01-14 15:03:00 152.4 cm [facility] Body weight 2023-01-14 15:03:00 62.143 kg [facility] BMI 2023-01-14 15:03:00 26.76 kg/m2 [facility] Systolic blood 2023-01-13 15:15:00 127 mm[Hg] Univer [facility]ity of pressure [facility] Diastolic blood 2023-01-13 15:15:00 83 mm[Hg] Unive [facility]ity of pressure [facility] Heart rate 2023-01-13 15:15:00 73 /min [facility] Body temperature 2023-01-13 15:15:00 36.28 Isaura [facility] Body height 2023-01-13 15:15:00 149.9 cm [facility] Body weight 2023-01-13 15:15:00 62.596 kg [facility] BMI 2023-01-13 15:15:00 27.87 kg/m2 [facility] Oxygen saturation in 2023-01-13 15:15:00 97 /min University of Arterial blood by [place] [employer] [facility] P[facility] Systolic blood 2023-01-13 12:21:00 126 mm[Hg] Univer [facility]ity of pressure [facility] Diastolic blood 2023-01-13 12:21:00 85 mm[Hg] [facility]ive rsity of pressure [facility] Heart rate 2023-01-13 12:21:00 68 /min [facility] Body height 2023-01-13 12:21:00 149.9 cm [facility] Body weight 2023-01-13 12:21:00 62.914 kg [facility] BMI 2023-01-13 12:21:00 28.01 kg/m2 [facility] Oxygen saturation in 2023-01-13 12:21:00 98 /min University of Arterial blood by [facility] oxim[facility] Systolic blood 2022-12-09 16:51:00 156 mm[Hg] Univer [facility]ity of pressure [facility] Diastolic blood 2022-12-09 16:51:00 91 mm[Hg] [facility]ive [facility]ity of pressure [facility] Heart rate 2022-12-09 16:51:00 71 /min [facility] Body temperature 2022-12-09 16:51:00 36.94 Isaura [facility] Body height 2022-12-09 16:51:00 152.4 cm [facility] Body weight 2022-12-09 16:51:00 61.689 kg [facility] BMI 2022-12-09 16:51:00 26.56 kg/m2 [facility] Oxygen saturation in 2022-12-09 16:51:00 97 /min University of Arterial blood by [facility] o[facility] Body temperature 2022-11-29 21:29:00 36.28 Isaura [facility] Body height 2022-11-29 21:29:00 152.4 cm [facility] Body weight 2022-11-29 21:29:00 63.322 kg [facility] BMI 2022-11-29 21:29:00 27.26 kg/m2 [facility] Systolic blood 2022-11-29 14:56:00 155 mm[Hg] Univer [facility]ity of pressure [facility] Diastolic blood 2022-11-29 14:56:00 82 mm[Hg] [facility] of pressure [facility] Heart rate 2022-11-29 14:55:00 70 /min [facility] Body temperature 2022-11-29 14:55:00 36.44 Isaura [facility] Respiratory rate 2022-11-29 14:55:00 18 /min [facility] Body height 2022-11-29 14:55:00 152.4 cm [facility] Body weight 2022-11-29 14:55:00 63.322 kg [facility] BMI 2022-11-29 14:55:00 27.26 kg/m2 [facility] Oxygen saturation in 2022-11-29 14:55:00 98 /min [facility] blood by [facility] Systolic blood 2022-11-18 22:55:00 130 mm[Hg] [facility]iver [facility]ity [facility] Diastolic blood 2022-11-18 22:55:00 81 mm[Hg] Unive rsity of pressure [facility] Heart rate 2022-11-18 22:54:00 65 /min [facility] Body height 2022-11-18 22:54:00 152.4 cm [facility] Body weight 2022-11-18 22:54:00 60.328 kg [facility] BMI 2022-11-18 22:54:00 25.97 kg/m2 [facility] Oxygen saturation in 2022-11-18 22:54:00 98 /min [facility] blood by [facility] [place] [facility] Systolic blood 2022-11-01 17:28:00 130 mm[Hg] [facility]iver [facility]ity of pressure [facility] Diastolic blood 2022-11-01 17:28:00 86 mm[Hg] [facility] of pressure [facility] Heart rate 2022-11-01 17:28:00 69 /min [facility] Body height 2022-11-01 17:28:00 152.4 cm [facility] Body weight 2022-11-01 17:28:00 59.875 kg [facility] BMI 2022-11-01 17:28:00 25.78 kg/m2 [facility] Oxygen saturation in 2022-11-01 17:28:00 100 /min [facility] blood by [facility] Systolic blood 2022-09-15 13:52:00 112 mm[Hg] Univer [facility]ity of pressure [facility] Diastolic blood 2022-09-15 13:52:00 79 mm[Hg] [facility] of pressure [facility] Heart rate 2022-09-15 13:52:00 97 /min [facility] Body temperature 2022-09-15 13:52:00 37.28 Isaura [facility] Body height 2022-09-15 13:52:00 152.4 cm [facility] Body weight 2022-09-15 13:52:00 63.504 kg [facility] BMI 2022-09-15 13:52:00 27.34 kg/m2 [facility] Oxygen saturation in 2022-09-15 13:52:00 96 /min [facility] Arterial blood by [place] [employer] [facility] P[facility] Systolic blood 2022-09-10 20:41:00 136 mm[Hg] Univer [facility]ity of pressure [facility] Diastolic blood 2022-09-10 20:41:00 81 mm[Hg] Unive rsity of pressure [facility] Heart rate 2022-09-10 20:41:00 78 /min [facility] Body temperature 2022-09-10 20:41:00 36.72 Isaura [facility] Respiratory rate 2022-09-10 20:41:00 18 /min [facility] Body weight 2022-09-10 20:41:00 65 kg [facility] BMI 2022-09-10 20:41:00 27.99 kg/m2 [facility] Oxygen saturation in 2022-09-10 20:41:00 99 /min [facility] Arterial blood by [place] [employer] [facility] P[facility] Systolic blood 2022-08-05 21:44:00 128 mm[Hg] Univer [facility]ity of pressure [facility] Diastolic blood 2022-08-05 21:44:00 82 mm[Hg] Unive rsity of pressure [facility] Heart rate 2022-08-05 21:44:00 64 /min [facility] Respiratory rate 2022-08-05 21:44:00 20 /min Univ [facility] Body height 2022-08-05 21:44:00 152.4 cm [facility] Body weight 2022-08-05 21:44:00 66.679 kg [facility] BMI 2022-08-05 21:44:00 28.71 kg/m2 [facility] Oxygen saturation in 2022-08-05 21:44:00 98 /min [facility] Arterial blood by [place] [employer] [facility] Systolic blood 2022-07-29 18:32:00 129 mm[Hg] Univer [facility]ity of pressure [facility] Diastolic blood 2022-07-29 18:32:00 87 mm[Hg] Unive rsity of pressure [facility] Heart rate 2022-07-29 18:32:00 70 /min [facility] Body height 2022-07-29 18:32:00 152.4 cm [facility] Body weight 2022-07-29 18:32:00 67.677 kg [facility] BMI 2022-07-29 18:32:00 29.14 kg/m2 [facility] Oxygen saturation in 2022-07-29 18:32:00 98 /min University of Arterial blood by [facility] Pulse oximetry [facility] Systolic blood 2022-07-23 19:16:00 127 mm[Hg] Univer [facility]ity of pressure [facility] Diastolic blood 2022-07-23 19:16:00 80 mm[Hg] [facility]ive rsity of pressure [facility] Heart rate 2022-07-23 19:16:00 65 /min [facility] Body height 2022-07-23 19:16:00 152.4 cm [facility] Body weight 2022-07-23 19:16:00 65.318 kg [facility] BMI 2022-07-23 19:16:00 28.12 kg/m2 [facility] Systolic blood 2022-07-23 18:09:00 127 mm[Hg] Univer [facility]ity of pressure [facility] Diastolic blood 2022-07-23 18:09:00 80 mm[Hg] Unive rsity of pressure [facility] Heart rate 2022-07-23 18:09:00 65 /min [facility] Body temperature 2022-07-23 18:09:00 36.72 Isaura [facility] Body height 2022-07-23 18:09:00 152.4 cm [facility] Body weight 2022-07-23 18:09:00 65.635 kg [facility] BMI 2022-07-23 18:09:00 28.26 kg/m2 [facility] Systolic blood 2022-07-15 00:44:00 142 mm[Hg] Univer [facility]ity of pressure [facility] Diastolic blood 2022-07-15 00:44:00 89 mm[Hg] Unive rsity of pressure [facility] Heart rate 2022-07-15 00:43:00 71 /min [facility] Body temperature 2022-07-15 00:43:00 36.44 Isaura [facility] Respiratory rate 2022-07-15 00:43:00 18 /min [facility] Body height 2022-07-15 00:43:00 152.4 cm [facility] Body weight 2022-07-15 00:43:00 66.497 kg [facility] BMI 2022-07-15 00:43:00 28.63 kg/m2 [facility] Oxygen saturation in 2022-07-15 00:43:00 98 /min [facility] Arterial blood by [place] [employer] [facility] P[facility] Systolic blood 2022-06-17 13:31:00 130 mm[Hg] manual Univer [facility]ity of pressure [facility] Diastolic blood 2022-06-17 13:31:00 80 mm[Hg] manual Un[facility]ity of pressure [facility] Heart rate 2022-06-17 13:03:00 67 /min [facility] Body height 2022-06-17 13:03:00 152.4 cm [facility] Body weight 2022-06-17 13:03:00 66.316 kg [facility] BMI 2022-06-17 13:03:00 28.55 kg/m2 [facility] Oxygen saturation in 2022-06-17 13:03:00 98 /min [facility] Arterial blood by [place] [employer] [facility] P[facility] Systolic blood 2022-05-20 14:08:00 131 mm[Hg] Univer [facility]ity of pressure [facility] Diastolic blood 2022-05-20 14:08:00 80 mm[Hg] Unive rsity of pressure [facility] Heart rate 2022-05-20 14:08:00 71 /min [facility] Body height 2022-05-20 14:08:00 152.4 cm Universi [facility] Body weight 2022-05-20 14:08:00 65.59 kg Universi [facility] BMI 2022-05-20 14:08:00 28.24 kg/m2 [facility] Oxygen saturation in 2022-05-20 14:08:00 98 /min [facility] Arterial blood by [facility] Pulse oximetry Branch Systolic blood 2022-12-20 18:40:00 147 mm[Hg] Method ist [facility] pressure Diastolic blood 2022-12-20 18:40:00 90 mm[Hg] [facility] pressure Heart rate 2022-12-20 18:40:00 69 /min [facility] Body weight 2022-12-20 18:40:00 61.236 kg [facility] BMI 2022-12-20 18:40:00 26.37 kg/m2 [facility] Oxygen saturation in 2022-12-20 18:40:00 99 /min [facility] Arterial blood by Pulse oximetry Body temperature 2022-12-07 18:41:00 36.67 Isaura [facility] Respiratory rate 2022-12-07 18:41:00 15 /min [facility] Body height 2022-12-07 14:04:00 152.4 cm [facility] Procedures Procedure Date / Time Performing Source Performed Clinician DISABILITY/FMLA 2023-02-28 [facility] of 05:01:00 Unassigned, No [facility] PILL CAM (CAPSULE ENDOSCOPY) 2023-02-08 Motility, Uni versity of 20:15:00 Endoscopy [facility] ASSIGNMENT OF BENEFITS 2023-02-08 Doctor [facility] y of 11:39:40 Unassigned, No [facility] XR KUB 2023-02-03 Dayday Gutierrez [facility] of 16:52:00 [facility] PATENCY CAPSULE 2023-02-02 Motility, University of 22:00:00 Endoscopy [facility] ASSIGNMENT OF BENEFITS 2023-02-02 Doctor [facility] y of 14:09:44 Unassigned, No [facility] INSURANCE CORRESPONDENCE 2023-01-20 Doctor [facility] ity of 05:01:00 Unassigned, No [facility] FLEXIBLE SIGMOIDOSCOPY (ENDO) 2023-01-14 Missy Templeton Un iversity of 16:13:50 [facility] FLEXIBLE SIGMOIDOSCOPY (ENDO) 2023-01-14 Missy Templeton Un iversity of 16:13:50 [facility] EGD (ENDO) 2023-01-14 Grace Templetonthia University of 16:03:34 [facility] EGD (ENDO) 2023-01-14 Jareth [facility] of 16:03:34 [facility] ESOPHAGOGASTRODUODENOSCOPY 2023-01-[address] [facility] 15:52:00 [facility] FLEXIBLE [facility]IDOSCOPY 2023[facility]01-14 [facility] POCT TEST 2023-01-14 [facility] of 15:30:00 [facility] POCT TEST 2023-01-14 [facility] of 15:30:00 [facility] CONSENT/REFUSAL FOR DIAGNOSIS AND 2023-01-14 [facility] 14:55:05 Unassigned, No [facility] Name Branch CONSENT/REFUSAL FOR DIAGNOSIS AND 2023-01-14 [facility] TREATMENT 14:55:05 Unassigned, No [facility] ASSIGNMENT OF BENEFITS 2023-01-14 Doctor Universit y of 14:36:46 Unassigned, No [facility] ASSIGNMENT OF BENEFITS 2023-01-14 [facility] 14:36:46 Unassigned, No [facility] DISCLOSURE AND CONSENT, [facility] 2023-01-14 [facility] of AND SURGICAL PROCEDURES 05:01:00 Unassigned, No [facility] dical Name Branch DISCLOSURE AND CONSENT, [facility] 2023-01-14 [facility] of AND SURGICAL PROCEDURES 05:01:00 Unassigned, No [facility] dical Name Branch DAY SURGERY - VICTORY LAKES 2023-01-14 [facility] ersity of 05:01:00 Unassigned, No [facility] TDAP VACCINE, >11 YRS, IM 2023-01-13 Cameron Bassett sity of 12:39:30 [facility] SURGICAL PATHOLOGY REQUEST 2022-12-07 Codey Costa dist 18:20:00 [facility] WIDE EXCISION, MELANOMA, UPPER 2022-12-07 Codey Costa ethodist EXTREMITY 16:13:00 F. Hospital ABO AND RH CONFIRMATION BY 2022-12-07 CinthiaCodey ribera dist PROTOCOL 14:31:00 F. Hospital TYPE AND SCREEN 2022-12-03 Bonita Watkins 18:04:00 Hospital PROTHROMBIN TIME WITH INR 2022-12-03 Bonita Watkins odist 18:04:00 Hospital PARTIAL THROMBOPLASTIN TIME (PTT) 2022-12-03 Chata Watkinss sheri [facility] 18:04:00 Hospital COMPREHENSIVE METABOLIC PANEL 2022-12-03 Bonita Watkins [facility] 18:04:00 Hospital CBC WITH PLATELET AND DIFFERENTIAL 2022-12-03 June Cry stal [facility] 18:04:00 Hospital ESTIMATED GFR 2022-12-03 Bonita Watkins [facility] 18:04:00 Hospital XR CHEST 2 VW 2022-12-03 Bonita Watkins [facility] 16:48:[address] ABDOMEN PELVIS WO CONTRAST 2022-11-30 Opal Fernandez U niversity of 18:10:00 [facility] PATIENT FINANCIAL POLICY 2022-11-18 Doctor iversity of 22:19:51 Unassigned, No [facility] CT HEAD WO CONTRAST 2022-11-05 [place] [facility] o f 14:43:22 [facility] POCT SARS-COV-2 ANTIGEN (BINAX 2022-09-18 Debbie Moore U niversity of NOW) 18:05:00 [facility] POCT MOLECULAR FLU 2022-09-15 Serjio [facility] of 13:50:00 [facility] POCT MOLECULAR STREP 2022-09-15 Johnson [facility] of 13:48:00 [facility] CONSENT/REFUSAL FOR DIAGNOSIS AND 2022-08-18 [facility] of TREATMENT 15:39:00 Unassigned, No [facility] EXTERNAL PROVIDER - ADC CARDIOLOGY 2022-08-09 [facility] 06:01:00 Unassigned, No [facility] INSULIN LIKE GROWTH FACTOR I 2022-07-29 Domenic Seaman U niversity of 12:37:00 [facility] CORTISOL AM 2022-07-29 Domenic Seaman [facility] of 12:37:00 [facility] THYROID STIMULATING HORMONE 2022-07-29 AlmarazMiguel Shaun Univ ersity of 12:37:00 [facility] COMP. METABOLIC PANEL (22431) 2022-07-29 AlmarazMiguel Shaun Un iversity of 12:37:00 [facility] LIPID PANEL (22903)(TOTAL 2022-07-[address] [facility] CHOLESTEROL, TRIGLYCERIDES, HDL) 12:37:00 [facility] CBC WITH DIFF 2022-07-29 Miguel Almaraz University of 12:37:00 [facility] GLYCOSYLATED HEMOGLOBIN (A1C) 2022-07-29 AlmarazYvonnecynthia Dunn Un iversity of 12:37:00 [facility] AUTHORIZATION TO RELEASE PHI TO 2022-07-29 Doctor [facility] 05:01:00 Unassigned, No [facility] POCT URINALYSIS W/O SPECIFIC 2022-07-23 AlmarazYvonnecynthia Dunn Uni versity of GRAVITY 00:00:00 [facility] ASSIGNMENT OF BENEFITS 2022-07-15 Doctor [facility] y of 00:27:58 Unassigned, No [facility] FLU VACC ([id number]), 6 MO-64 YRS, 2022-06-17 Britney Templeton [facility] .5ML, IM, QUAD (FLUCELVAX) 13:37:29 [facility] AUTHORIZATION TO RELEASE PHI TO 2022-06-15 Doctor [facility] 05:01:00 Unassigned, No [facility] EXTERNAL PROVIDER RECORDS 2022-06-03 [facility] sity of 05:01:00 Unassigned, No [facility] COMP. METABOLIC PANEL (17087) 2022-05-20 Missy Templeton Un iversity of 15:07:00 [facility] CBC WITH DIFF 2022-05-20 Missy Templeton Mcgee of 15:07:00 [facility] Plan of Care Planned Activity Planned Date Details Comments Source Future Scheduled 2023-03-13 Screening for [facility] Test 04:28:56 malignant neoplasm of colon (procedure) [code = 182727887] Future Scheduled 2023-03-13 Screening for [facility] Test 04:28:56 malignant neoplasm of colon (procedure) [code = 434240000] Future Scheduled 2023-03-13 [facility] Test 04:28:56 screening (procedure) [code = 745656588] Future Scheduled 2023-03-13 Screening [facility] Test 04:28:56 malignant neoplasm of cervix (procedure) [code = 022611267] Future Scheduled 2023-03-13 Screening for [facility] Test 04:28:56 malignant neoplasm of colon (procedure) [code = 828976929] Future Scheduled 2023-03-13 COVID-19 VACCINE (4 [facility] Test 04:28:56 - Pfizer series) [code = COVID-19 VACCINE (4 - Pfizer series)] Future Scheduled 2023-03-13 INFLUENZA VACCINE [facility] 04:28:56 [code = INFLUENZA VACCINE] Future Scheduled 2023-03-13 BREAST CANCER [facility] Test 04:28:56 SCREENING [code = BREAST CANCER SCREENING] Future Scheduled 2023-03-13 Screening for [facility] Test 04:28:56 malignant neoplasm of colon (procedure) [code = 979283862] Future Scheduled 2023-03-13 Screening for [facility] Test 04:28:56 malignant neoplasm of colon (procedure) [code = 332830634] Encounters Start End Encounter Admission Attending Care Care Encounter Source Date/Time Date/Time Type Type Clinicians Facility Department ID 2021-07-25 Emergency [facility] [id number] [facility] [id number] [facility]-14 2023-04-14 Outpatient R HANSEL PINEDO [facility] 1 [id number] Univers 11:00:00 11:00:00 HANSEL PINEDO [facility] 2023-04-14 2023-04-14 Outpatient R HANSEL PINEDO [facility] 1 [id number] Univers 11:00:00 11:00:00 HANSEL PINEDO [facility] 2023-04-06 2023-04-06 Telephone Khris [facility] 1.2.638.975 [id number] Univers 00:00:00 00:00:00 Hamm SPECIALTY 350.1.13.10 ity of CARE 4.2.7.2.686 [facility] AT [phone] Id ruby Guerra2 [facility] 2023-02-28 2023-02-28 Orders Doctor GOLDEN 1.2.840.114 [id number] Univers 00:00:00 00:00:00 Only Unassigned, ROBERTA 350.1.13.10 ity of [place] [facility] 4.2.7.2.686 Chao as [phone] [facility] [address] [place] 2023-02-10 2023-02-10 Telephone [facility] 1.2.013.155 [id number] Univers 00:00:00 00:00:00 Hamm SPECIALTY 350.1.13.10 ity of CARE 4.2.7.2.686 [place] AT [id number] [facility] [address] [place] [address] 2023-02-08 2023-02-08 Surgery Motility, [facility] 1.2.840.114 10 [id number] Univers 07:15:00 07:45:00 Endoscopy ICAL 350.1.13.10 ity of SCIENCES 4.2.7.2.686 Chao as BLDG [id number] [facility] [address] [place] 2023-02-08 2023-02-08 Outpatient R VLAD MÉNDEZ [facility] GIE 1 [id number] Univers 06:56:00 07:40:00 VLAD MÉNDEZ itdelores [facility] 2023-02-08 2023-02-08 Hospital [facility] 1.2.840.114 [id number] Univers 06:56:00 07:40:00 Encounter Vlad Smith ICAL 350.1.13.10 ity of SCIENCES 4.2.7.2.686 Chao as BLDG [id number] [facility] [address] [place] 2023-02-08 2023-02-08 Orders Doctor GOLDEN 1.2.840.114 [id number] Univers 00:00:00 00:00:00 Only Unassigned, ROBERTA 350.1.13.10 ity of [place] [facility] 4.2.7.2.686 Chao as [id number] [facility] [address] [place] 2023-02-07 2023-02-07 Nurse GOLDEN Birch 1.2.840.114 [id number] Univers 00:00:00 00:00:00 Triage Mali ROBERTA 350.1.13.10 it y of [facility] 4.2.7.2.686 Chao as [id number] [facility] [address] [place] 2023-02-03 2023-02-03 Outpatient R HANSEL PINEDO [facility] 1 [id number] Univers 11:30:18 23:59:00 HANSEL PINEDO ity of [facility] 2023-02-03 2023-02-03 [facility] 1.2.840.114 [id number] Univers 11:30:00 23:59:00 Encounter Hansel SLATER 350.1.13.10 ity of [place] 4.2.7.2.686 [place] [id number] [facility] [address] [place] 2023-02-02 2023-02-02 Outpatient R VLAD MÉNDEZ [facility] GIE 1 [id number] Univers 09:10:00 09:56:00 VLAD MÉNDEZ ity [facility] 2023-02-02 2023-02-02 [facility] 1.2.840.114 102 [id number] Univers 09:10:00 09:56:00 Encounter Vlad Smith ICAL 350.1.13.10 ity of SCIENCES 4.2.7.2.686 Chao as BLDG [id number] [facility] [address] [place] 2023-02-02 2023-02-02 Surgery Motility, [facility] 1.2.840.114 10 [id number] Univers 09:00:00 09:30:00 Endoscopy ICAL 350.1.13.10 ity of SCIENCES 4.2.7.2.686 Chao as BLDG 798.8359712 [facility] [address] [place] 2023-02-02 2023-02-02 Orders Doctor GOLDEN 1.2.840.114 [id number] Univers 00:00:00 00:00:00 Only Unassigned, ROBERTA 350.1.13.10 ity of [place] [facility] 4.2.7.2.686 Chao as [id number] [facility] [address] [place] 2023-02-02 2023-02-02 Telephone GOLDEN Pinedo 1.2.073.376 5759 [id number] Univers 00:00:00 00:00:00 Hamm ROBERTA 350.1.13.10 it y of HOSPITAL 4.2.7.2.686 Chao as 167.1989671 [facility] [address] [place] 2023-01-20 2023-01-20 Orders Doctor GOLDEN 1.2.840.114 [id number] Univers 00:00:00 00:00:00 Only Unassigned, ROBERTA 350.1.13.10 ity of [place] [facility] 4.2.7.2.686 Chao as [id number] [facility] [address] [place] 2023-01-18 2023-01-18 Telephone Jim [facility] 1.2.840.114 10 [id number] Univers 00:00:00 00:00:00 Opal BRYON 350.1.13.10 i ty of [place] 4.2.7.2.686 [place] [id number] [facility] 188 [facility] 2023-01-18 2023-01-18 Telephone Serjio [facility] 1.2.755.623 2545 [id number] Univers 00:00:00 00:00:00 Cameron HEALTH 350.1.13.10 it y of [place] 4.2.7.2.686 Chao as ONESIMO?BLEA 249.9113688 [facility] [address] [place] MEDICAL OFFICE [facility] 2023-01-17 2023-01-17 Telephone GOLDEN Pinedo 1.2.662.123 9061 [id number] Univers 00:00:00 00:00:00 Hamm ROBERTA 350.1.13.10 it y of [facility] 4.2.7.2.686 Chao as [id number] [facility] [address] [place] 2023-01-17 2023-01-17 Patient Serjio [facility] 1.2.840.114 [id number] Univers 00:00:00 00:00:00 Secure Ms Cameron HEALTH 350.1.13.10 ity of [place] 4.2.7.2.686 Chao as ONESIMO?BLEA 425.3348140 [address] MEDICAL OFFICE [facility] 2023-01-17 2023-01-17 Patient Khris [facility] 1.2.840.114 [id number] Univers 00:00:00 00:00:00 Secure Msg Hamm SPECIALTY 350.1.13.10 ity of CARE 4.2.7.2.686 [place] [id number] Id ruby SALVADOR [address] [place] [address] 2023-01-17 2023-01-17 [facility] 1.2.931.669 5527 21458 Univers 00:00:00 00:00:00 Hamm SPECIALTY 350.1.13.10 ity of CARE 4.2.7.2.686 [place] 220.7241990 Id ruby SALVADOR [address] [place] [address] 2023-01-14 2023-01-14 Outpatient R HANSEL PINEDO [facility] ALECIA 1 [id number] Univers 09:36:00 12:06:00 HANSEL PINEDO [facility] 2023-01-14 2023-01-14 Hospital Khris [facility] 1.2.840.114 [id number] Univers 09:36:00 12:06:00 Encounter [facility] 350.1.13.10 ity of [place] 4.2.7.2.686 [place] [facility] [id number] [address] ([facility]) 2023-01-14 2023-01-14 Surgery [facility] 1.2.840.114 [id number] Univers 10:45:00 11:45:00 Hansel SPECIALTY 350.1.13.10 ity of CARE 4.2.7.2.686 [place] 353.3905289 Id ruby SALVADOR [address] [place] [address] 2023-01-14 2023-01-14 Telephone Khris [facility] 1.2.416.008 8791 [id number] Univers 00:00:00 00:00:00 Hamm SPECIALTY 350.1.13.10 ity of CARE 4.2.7.2.686 [place] AT 377.7671079 Id ruby SALVADOR [address] [place] [address] 2023-01-13 2023-01-13 [employer] 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 Lab, [facility] 1.2.840.114 10 [id number] Univers 12:15:00 12:30:00 Visit Hansel Pinedo SPECIALTY 350.1.13.10 ity of CARE 4.2.7.2.686 [place] 025.5490737 Id ruby SALVADOR 353 [facility] 2023-01-13 2023-01-13 Office Khris [facility] 1.2.840.114 [id number] Univers 11:30:00 11:30:00 Visit Hamm SPECIALTY 350.1.13.10 ity of CARE 4.2.7.2.686 [place] AT 964.8911891 Id ruby SALVADOR [address] [place] [address] 2023-01-13 2023-01-13 Outpatient R HANSEL PINEDO [facility] 1 [id number] Univers 11:30:00 11:27:03 HANSEL PINEDO [facility] 2023-01-13 2023-01-13 [employer] 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 Lab, Jose - Lacho [facility] 1.2.840.1 14 [id number] Univers 08:00:00 08:00:00 Visit Serjio [facility] 350.1.13.10 ity of [place] 4.2.7.2.686 Chao as ONESIMO?BLEA 196.1051681 [facility] 353 [facility] OFFICE [facility] 2023-01-13 2023-01-13 Office [facility] 1.2.840.114 [id number] Univers 07:30:00 07:45:00 Visit [facility] 350.1.13.10 it y of [place] 4.2.7.2.686 Chao as ONESIMO?BLEA 048.6374769 Id ruby [facility] 044 [facility] OFFICE [facility] 2023-01-13 2023-01-13 Letter Khris [facility] 1.2.840.114 [id number] Univers 00:00:00 00:00:00 (Out) Hamm SPECIALTY 350.1.13.10 ity of C[place] 4.2.7.2.686 [place] 525.1614334 Id ruby SALVADOR [address] [place] [address] 2023-01-13 2023-01-13 Letter Khris [facility] 1.2.840.114 [id number] Univers 00:00:00 00:00:00 (Out) Hamm SPECIALTY 350.1.13.10 ity of C[place] 4.2.7.2.686 [place] 200.4955959 Id ruby SALVADOR [address] [place] [address] 2023-01-13 2023-01-13 Telephone Khris, [facility] 1.2.313.517 5736 [id number] Univers 00:00:00 00:00:00 Hamm SPECIALTY 350.1.13.10 ity of CARE 4.2.7.2.686 [place] 150.9192856 Id ruby SALVADOR [address] [place] [address] 2023-01-13 2023-01-13 Patient Doctor [facility] 1.2.840.114 [id number] Univers 00:00:00 00:00:00 Secure Msg Unassigned, SPECIALTY 350.1.13.10 ity of [place] CARE 4.2.7.2.686 [place] AT 533.1488901 Id radha[address] 2022-12-29 2022-12-29 Telephone JOSEFINA Sparks 1.2.840.114 1 [id number] Univers 00:00:00 00:00:00 Zeb Delores HEALTH 350.1.13.10 i ty of CLINICS 4.2.7.2.686 [place] 171.1243279 [address] 2022-12-28 2022-12-28 Telephone [facility] 1.2.125.950 7953 25884 Univers 00:00:00 00:00:00 Johnny Erazo SPECIALTY 350.1.13.10 ity of C[place] 4.2.7.2.686 [place] AT 247.7433443 Id ruby [address] 2022-12-28 2022-12-28 Telephone [facility] 1.2.840.114 10 [id number] Univers 00:00:00 00:00:00 Domenic HEALTH 350.1.13.10 it y of [place] 4.2.7.2.686 Chao as ONESIMO?BLEA 350.7137783 Id ruby NOMAN [address] [place] [address] MEDICAL OFFICE BUILDING 2022-12-27 2022-12-27 Letter Clinic, [facility] 1.2.840.114 [id number] 785 Univers 00:00:00 00:00:00 (Out) [facility] SPECIALTY 350.1.13.10 ity of Gastroenter CARE 4.2.7.2.686 [place] o[place] CENTER AT 183.4253162 Id ruby SALVADOR 072 [facility] 2022-12-20 2022-12-20 Office Igor, 1.2.840.1 [id number] 2100 016693 Methodi 13:15:00 14:04:06 Visit Codey F. 44606.1.[address] 3.430.2.7 Hospit a .3.522011 l .8 2022-12-20 2022-12-20 Outpatient IGOR [facility] [id number] 1937 [place] 00:00:00 00:00:00 CODEY [address] 2022-12-17 2022-12-17 [facility] 1.2.840.[id number] [place] [address] 00:00:00 00:00:00 (Out) [facility] SPECIALTY 350.1.13.10 ity of Gastroenter CARE 4.2.7.2.686 [facility] AT 766.2027352 Id ruby SALVADOR 2 [facility] 2022-12-15 2022-12-15 Telephone Igor, 1.2.840.6 [id number] 21 [id number] Methodi 00:00:00 00:00:[address] Code[address] Orta [address]46.1.[address] 3.430.2.7 Hospit a .3.749020 l .8 2022-12-14 2022-12-14 Telephone [facility] 1.2.840.114 10 [id number] [facility] 00:00:00 00:00:00 Opal SLATER 350.1.13.10 i ty of [place] 4.2.7.2.686 [facility] 110.6807852 Id ruby EATON 188 [facility] 2022-12-13 2022-12-13 Orders Imasogprieto, 1.2.840.6 [id number] 579 [id number] Methodi 00:00:00 00:00:00 Only Crystal 84670.1.[address] 3.430.2.7 Hospit a .3.322600 l .8 2022-12-13 2022-12-13 Telephone Igor, 1.2.840.2 [id number] 21 [id number] Methodi 00:00:00 00:00:[address] Code[address]ta [address]1.[address] 3.430.2.7 Hospit a .3.092514 l .8 2022-12-09 2022-12-09 Outpatient R JIM [facility] [id number] [facility] 11:30:00 12:09:17 OPAL alaniz of [facility] 2022-12-09 2022-12-09 Office [facility] 1.2.248.674 1055 42242 [facility] 11:30:00 12:09:17 Visit Opal SLATER 350.1.13.10 i ty of [facility] 4.2.7.2.686 Bashir gastelum PROFESSIO 664.2959440 Id dical [address] 2022-12-08 2022-12-08 [facility], 1.2.840.1 [id number] 21 [id number] Methodi 00:00:00 00:00:[address] Code[address] Orta [address]1021.1.[address] 3.430.2.7 Hospit a .3.928739 l .8 2022-12-07 2022-12-07 Hospital [facility], 1.2.840.1 [id number] 2100 815407 Methodi 08:37:00 14:38:00 Encounter Codey Orta 60899.1.[address] 3.430.2.7 Hospit a .3.265764 l .8 2022-12-07 2022-12-07 Surgery [facility], 1.2.840.1 [id number] 84499 59301 Methodi 11:10:00 13:35:[address]ta [address].1.[address] 3.430.2.7 Hospit a .3.620281 l .8 2022-12-07 2022-12-07 Anesthesia Ricky Mejia 1.2.84 0.1 [id number] Methodi 11:12:00 12:36:00 Event Marielos Reilly 81925.1.[address] 3.430.2.7 Hospit a .3.197192 l .8 2022-12-07 2022-12-07 Outpatient [facility] 021 [id number] 1835 [place] 00:00:00 00:00:00 CODEY [address] 2022-12-07 2022-12-07 Travel 1.2.840.1 1.2.521.702 8674 543839 Methodi 00:00:00 00:00:[address] 3.430.2.7 0.2.7.3.698 Ho spita .3.256204 084.8 l .8 2022-12-06 2022-12-06 Telephone Glazer, 1.2.840.2 [id number] 796 1478753 Methodi 00:00:00 00:00:00 Carolina PerezLuis A 84596.1.[address] 3.430.2.7 Hospit a .3.468773 l .8 2022-12-03 2022-12-03 [facility], 1.2.840.1 [id number] 2099 157556 Methodi 10:15:00 23:59:00 Encounter Codey HeatherLuis A 55389.1.[address] 3.430.2.7 Hospit a .3.403764 l .8 2022-12-03 2022-12-03 Outpatient [facility] [id number] Univers 14:30:00 14:30:00 MISSY alaniz [facility] 2022-12-03 2022-12-03 [facility], 1.2.840.1 [id number] 28365 98567 Methodi 11:55:00 12:00:00 Codey HeatherLuis A 92997.1.[address] 3.430.2.7 Hospit a .3.278101 l .8 2022-12-03 2022-12-03 Travel 1.2.840.1 1.2.841.866 3001 432653 Methodi 00:00:00 00:00:[address] 3.430.2.7 0.2.7.3.698 Ho spita .3.137143 084.8 l .8 2022-12-03 2022-12-03 Outpatient ESNAOLA, [facility] [id number] 6554 [place] 00:00:00 00:00:00 CODEY [address] 2022-12-03 2022-12-03 Outpatient ESNAOLA, [facility] [id number] 1923 [place] 00:00:00 00:00:00 CODEY [address] 2022-12-03 2022-12-03 Telephone Jareth [facility] 1.2.548.396 1955 36392 [facility] 00:00:00 00:00:00 [facility] 350.1.13.10 it y of [place] 4.2.7.2.686 Chao as ONESIMO?BLEA 748.3708961 Id ruby SANZ 044 [facility] 2022-12-01 2022-12-01 Outpatient R YAEL [facility] 06879 [id number] Univers 10:30:00 11:33:01 STEPAN alaniz [facility] 2022-12-01 2022-12-01 Nurse Visit, [employer] Nurse [facility] 1.2.840.1 14 [id number] [facility] 10:30:00 11:00:00 Visit Stepan Morocho 350.1.13.10 ity of [place] 4.2.7.2.686 [place] 417.0652659 Id diclotus EATON 059 [facility] 2022-12-01 2022-12-01 [employer] 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 2, Adc Lab [facility] 1.2.840.114 [id number] [facility] 08:00:00 08:15:00 Visit Stepan Morocho 350.1.13.10 ity of [facility] 4.2.7.2.686 [place] 059.7931747 Id dical NAL 353 [facility] 2022-12-01 2022-12-01 Outpatient R JIM [facility] [id number] Univers 00:00:00 00:00:00 OPAL delores [facility] 2022-12-01 2022-12-01 Telephone Igor, 1.2.840.8 [id number] 21 [id number] Methodi 00:00:00 00:00:00 Codey Orta [address]89.1.[address] 3.430.2.7 Hospit a .3.774867 l .8 2022-12-01 2022-12-01 Patient Jareth [facility] 1.2.840.114 [id number] 874 Univers 00:00:00 00:00:00 Secure Msg Missy [facility] 350.1.13.10 ity of [place] 4.2.7.2.686 Chao as ONESIMO?BLEA 145.0746374 Id diclotus [address] MEDICAL OFFICE BUILDING 2022-12-01 2022-12-01 Telephone Jareth [facility] 1.2.629.261 1381 61388 Univers 00:00:00 00:00:00 Missy BARNESKEY 350.1.13.10 i ty of [facility] 4.2.7.2.686 [place] [facility] 556.9753605 Id ruby [address] 2022-11-30 2022-11-30 [facility] 80140 65858 Univers 11:38:51 23:59:00 OPAL alaniz [facility] 2022-11-30 2022-11-30 [facility] 1.2.840.114 101 [id number] Univers 11:38:51 23:59:00 Encounter Opal SLATER 350.1.13.10 ity of [facility] 4.2.7.2.686 [place] 457.7360719 [address] 2022-11-30 2022-11-30 Office Igor, 1.2.840.0 [id number] 2100 103504 Methodi 14:30:00 16:59:39 Visit Codey Orta 40462.1.[address] 3.430.2.7 Hospit a .3.639281 l .8 2022-11-30 2022-11-30 [facility] 01141 [id number] Univers 16:15:00 16:15:00 OPAL alaniz [facility] 2022-11-30 2022-11-30 [employer] 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 Cristóbal, [facility] Lab Main [facility] 1.2.8 40.114 [id number] Univers 12:15:00 12:30:00 Visit Opal Fernandez 350.1.13.10 ity of [facility] 4.2.7.2.686 [place] PROF[place] 289.0720512 Id dical NAL 353 [facility] 2022-11-30 2022-11-30 Telephone Jareth [facility] 1.2.656.996 1864 69490 [facility] 00:00:00 00:00:00 [facility] 350.1.13.10 it y of [place] 4.2.7.2.686 Chao as ONESIMO?BLEA 030.0868680 Id dical KNEY [address] [place] MEDICAL OFFICE BUILDING 2022-11-30 2022-11-30 Travel 1.2.840.1 1.2.943.667 9935 412983 Methodi 00:00:00 00:00:00 32088.1.1 350.1.13.43 703 3.430.2.7 0.2.7.3.698 Ho spita .3.829646 084.8 l .8 2022-11-30 2022-11-30 Outpatient IGOR [facility] [id number] 7333 [place] 00:00:00 00:00:00 CODEY [address] 2022-11-29 2022-11-29 Office Mike [facility] 1.2.027.977 4650 01633 [facility] 16:00:00 16:15:00 Visit [facility] 350.1.13.10 i ty of [place] 4.2.7.2.686 [place] [facility] 031.0086593 [facility] PRIMARY & [facility] SPECIALTY CARE 2022-11-29 2022-11-29 Outpatient R MIKE [facility] 75486 37124 [facility] 16:00:00 16:00:00 [facility] ity of [facility] 2022-11-29 2022-11-29 [employer] 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 2, Adc Lab [facility] 1.2.840.114 [id number] Univers 09:45:00 10:00:00 Visit Opal Fernandez 350.1.13.10 ity of [place] 4.[place].7.2.686 [place] 711.8504616 Id dical NAL 353 [facility] 2022-11-29 2022-11-29 Office Fernandez [facility] 1.2.782.744 2789 43933 Univers 08:30:00 09:11:44 Visit Opal BRYON 350.1.13.10 i ty of [place] 4.2.7.2.686 [place] 171.0801909 Id radhaal [facility] 188 [facility] 2022-11-29 2022-11-29 Letter Mike [facility] 1.2.343.974 3442 31726 Univers 00:00:00 00:00:00 (Out) [facility] 350.1.13.10 i ty of [place] [facility] [id number] [facility] PRIMARY & [facility] SPECIALTY CARE 2022-11-22 2022-11-22 Patient [facility] 1.2.840.114 [id number] Univers 00:00:00 00:00:00 Secure Msg Missy HEALTH 350.1.13.10 ity of [place] 4.2.7.2.686 Chao as ONESIMO?BLEA [id number] Id ruby SANZ [address] [place] MEDICAL OFFICE [facility] 2022-11-19 2022-11-19 [employer] 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 2, Adc Lab [facility] 1.2.840.114 [id number] Univers 09:00:00 09:00:38 Visit Missy [place] 350.1.13.10 [place] [id number] Id ruby [facility] 353 [facility] 2022-11-19 2022-11-19 Outpatient R JARETH [facility] [id number] Univers 09:00:00 09:00:00 MISSY ity of [facility] 2022-11-19 2022-11-19 Telephone [facility] 1.2.144.441 [id number] Univers 00:00:00 00:00:00 Missy HEALTH 350.1.13.10 it y of [place] 4.2.7.2.686 Chao as ONESIMO?BLEA [phone] Id ruby SANZ [address] [place] [address] MEDICAL OFFICE [facility] 2022-11-18 2022-11-18 Outpatient R JARETH [facility] [id number] Univers 16:30:00 17:17:02 MISSY ity of [facility] 2022-11-18 2022-11-18 Office [facility] 1.2.840.114 [id number] Univers 16:30:00 17:17:02 Visit Missy HEALTH 350.1.13.10 it y of [place] 4.2.7.2.686 Chao as ONESIMO?BLEA [id number] [address] MEDICAL OFFICE [facility] 2022-11-18 2022-11-18 Orders Doctor GOLDEN 1.2.840.114 [id number] Univers 00:00:00 00:00:00 Only Unassigned, ROBERTA 350.1.13.10 ity of [place] [facility] 4.2.7.2.686 Chao as [phone] [address] 2022-11-18 2022-11-18 Telephone Nurse, [facility] 1.2.181.064 [id number] Univers 00:00:00 00:00:00 Adrianna-Vl SPECIALTY 350.1.13.10 ity [place] AT [id number] [facility] MADELEINE 072 [facility] 2022-11-18 2022-11-18 Telephone Sarah [facility] 1.2.840.114 [id number] Univers 00:00:00 00:00:00 Wendy HEALTH 350.1.13.10 it y [place] - [phone] Med ical [facility] [address] [place] 2022-11-17 2022-11-17 Telephone Jareth [facility] 1.2.272.042 [id number] Univers 00:00:00 00:00:00 Missy HEALTH 350.1.13.10 it y of [place] 4.2.7.2.686 [place]ao as ONESIMO?BLEA [phone] [address] MEDICAL OFFICE [facility] 2022-11-09 2022-11-09 Telephone Randy [facility] 1.2.840.114 [id number] Univers 00:00:00 00:00:00 Fabrizio Gene HEALTH 350.1.13.10 ity of [place] 4.2.7.2.686 [place]ao as ONESIMO?BLEA [phone] Id diclotus [place] [address] [place] MEDICAL OFFICE [facility] 2022-11-09 2022-11-09 Telephone SeamanMESILLA [facility] 1.2.840.114 10 [id number] Univers 00:00:00 00:00:00 [facility] 350.1.13.10 it y of [place] 4.2.7.2.686 Chao as ONESIMO?BLEA [id number] Id dical YVON 220 [facility] OFFICE [facility] 2022-11-05 2022-11-05 [facility] [id number] Univers 08:03:00 23:59:00 JANICE alaniz [facility] 2022-11-05 2022-11-05 Hospital [facility] 1.2.840.114 [id number] Univers 08:03:00 23:59:00 Encounter Janice [place] 350.1.13.10 ity of [place] [id number] [address] 2022-11-02 2022-11-02 Telephone [facility] 1.2.716.332 [id number] Univers 00:00:00 00:00:00 Ruislava [place] 350.1.13.10 ity of [place] [facility] [id number] Id diclotus EATON 059 [facility] 2022-11-01 2022-11-01 Outpatient R SHIRA [facility] [id number] Univers 16:00:00 16:00:00 JANICE gatesy [facility] 2022-11-01 2022-11-01 Outpatient [facility] [id number] Univers 11:00:00 12:54:24 JANICEJOSEPHINE alaniz [facility] 2022-11-01 2022-11-01 Office [facility] 1.2.840.114 [id number] Univers 11:00:00 12:54:24 Visit Janice [facility] 350.1.13.10 it y of [place] 4.2.7.2.686 Chao as ONEISMO?BLEA [id number] Me ruby SANZ [address] MEDICAL OFFICE BUILDING 2022-11-01 2022-11-01 Telephone Shira [facility] 1.2.748.391 [id number] Univers 00:00:00 00:00:00 Janice HEALTH 350.1.13.10 it y of [place] 4.2.7.2.686 Chao as ONESIMO?BLEA [id number] Id ruby [place] [address] [place] [address] MEDICAL OFFICE BUILDING 2022-10-06 2022-10-06 Telephone JOSEFINA Hahn 1.2.840.114 [id number] Univers 00:00:00 00:00:00 Destiyn Nara Hamilton HEALTH 350.1.13.10 i ty of CL[place]2.[place].2.[place] [phone] [facility] [address] 2022-09-23 2022-09-23 Patient Jurgen [facility] 1.2.122.392 [id number] Univers 00:00:00 00:00:00 Secure Msg Domenic H MULTISPEC 350.1.13.10 ity of [place] 4.2.7.2.686 [place] [id number] [facility] AND FYFFE [address] [facility] 2022-09-22 2022-09-22 Telephone Serjio [facility] 1.2.285.064 [id number] Univers 00:00:00 00:00:00 Cameron HEALTH 350.1.13.10 it y of [place] 4.2.7.2.686 Chao as ONESIMO?BLEA [id number] [facility] [address] [place] MEDICAL OFFICE BUILDING 2022-09-21 2022-09-21 Patient Doctor [place] 1.2.840.114 [id number] Univers 00:00:00 00:00:00 Secure Msg Unassigned, HEALTH 350.1.13.10 ity of [place] 4.2.7.2.686 Chao as ONESIMO?BLEA [id number] Id ruby [facility] [address] MEDICAL OFFICE BUILDING 2022-09-18 2022-09-18 [employer] 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 Only, Ang Db Test [facility] 1.2.8 40.114 [id number] Univers 12:00:00 12:15:00 Visit Anene, Missy [facility] 350.1.13.10 ity of Unknown, Attending [place] 4.2.7.2.686 [place] ONESIMO?BLEA [id number] [address] MEDICAL OFFICE [facility] 2022-09-18 2022-09-18 Outpatient R ELISHAAnthonyIRMA LEON [facility] [id number] Univers 12:00:00 12:00:00 [facility] 2022-[facility]-18 2022-09-18 Telephone Only, Jose [facility] 1.2.840.114 [id number] Univers 00:00:00 00:00:00 Db Test HEALTH 350.1.13.10 it y of [place] 4.2.7.2.686 Chao as ONESIMO?BLEA [phone] [address] MEDICAL OFFICE [facility] 2022-09-16 2022-09-16 Telephone Serjio [facility] 1.2.105.147 [id number] Univers 00:00:00 00:00:00 Cameron HEALTH 350.1.13.10 it y of [place] 4.2.7.2.686 Chao as ONESIMO?BLEA [phone] [address] OFFICE [facility] 2022-09-15 2022-09-15 [facility] [id number] Univers 07:45:00 08:17:16 [facility] 2022-09-15 2022-09-15 Office [facility] 1.2.840.114 [id number] Univers 07:45:00 08:00:00 [facility] 350.1.13.10 it y of [place] 4.2.7.2.686 Chao as ONESIMO?BLEA [phone] [address] OFFICE [facility] 2022-09-15 2022-09-15 Letter [facility] 1.2.840.114 [id number] Univers 00:00:00 00:00:00 (Out) Cameron HEALTH 350.1.13.10 it y of [place] 4.2.7.2.686 Chao as ONESIMO?BLEA [phone] [address] MEDICAL OFFICE [facility] 2022-09-15 2022-09-15 Telephone Serjio [facility] 1.2.856.957 [id number] [id number] Univers 00:00:00 00:00:00 [facility] 350.1.13.10 it y of [place] 4.2.7.2.686 Chao as ONESIMO?BLEA [phone] [address] MEDICAL OFFICE [facility] 2022-09-14 2022-09-14 Outpatient R JARETH [facility] [id number] Univers 18:40:00 18:40:00 MISSY ity of [facility] 2022-09-10 2022-09-10 Outpatient R RUFIAN [facility] [id number] Univers 10:42:41 23:59:00 ity of [facility] 2022-09-10 2022-09-10 [facility] Miguel Almaraz [facility] 1.2.840.114 [id number] Univers 10:20:00 23:59:00 Encounter Shaun SLATER 350.1.13.10 ity of [place] 4.2.7.2.[place] [phone] [facility] [address] [place] 2022-09-10 2022-09-10 Office [facility] 1.2.746.636 [id number] Univers 15:00:00 16:03:03 Visit Destiny LOTT 350.1.13.10 ity of [facility] 4.2.7.2.686 [place] [id number] [facility] AND FYFFE [address] [place] [facility] 2022-08-18 2022-08-18 Outpatient R LINK [facility] [id number] Univers 09:39:41 23:59:00 SANTOS ity o f [facility] 2022-08-18 2022-08-18 Orders Doctor FRANKS 1.2.840.114 [id number] Univers 00:00:00 00:00:00 Only Unassigned, ROBERTA 350.1.13.10 ity of [place] [facility] 4.2.7.2.686 Chao as [phone] [facility] [address] 2022-08-18 2022-08-18 Alannah Maza [facility] 1.2.840.114 [id number] Univers 00:00:00 00:00:00 (Out) Santos SLATER 350.1.13.10 ity of [place].2.7.2.686 [place] [id number] Id dical NAL 059 [facility] 2022-08-18 2022-08-18 Telephone [facility] 1.2.255.012 [id number] 1870 Univers 00:00:00 00:00:00 Missy HEALTH 350.1.13.10 it y of [place] 4.2.7.2.686 Chao as ONESIMO?BLEA [id number] [facility] 044 [facility] OFFICE [facility] 2022-08-16 2022-08-16 [facility] [id number] Univers 10:00:00 10:00:00 SANTOS ity o f [facility] 2022-08-11 2022-08-11 Patient [facility] 1..840.114 [id number] Univers 00:00:00 00:00:00 Secure Msg Missy HEALTH 350.1.13.10 ity of [place] 4.2.7.2.686 Chao as ONESIMO?BLEA [id number] [facility] 044 [facility] OFFICE [facility] 2022-08-11 2022-08-11 Patient [facility] 1.2.508.622 [id number] Univers 00:00:00 00:00:00 Secure Msg Domenic H HEALTH 350.1.13.10 ity of [place] 4.2.7.2.686 Chao as ONESIMO?BLEA [phone] [facility] SANZ 220 [facility] OFFICE [facility] 2022-08-09 2022-08-09 Patient [facility] 1.2.193.869 [id number] Univers 00:00:00 00:00:00 Secure Msg Domenic H HEALTH 350.1.13.10 ity of [place] 4.2.7.2.686 Chao as ONESIMO?BLEA [id number] [facility] [address] [place] MEDICAL OFFICE [facility] 2022-08-09 2022-08-09 Orders Doctor FRANKS 1.2.840.114 [id number] Univers 00:00:00 00:00:00 Only Unassigned, ROBERTA 350.1.13.10 ity of [place] [facility] 4.2.7.2.686 Chao as [phone] [address] 2022-08-06 2022-08-06 [employer] 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 2, Adc Lab [facility] 1.2.840.114 [id number] Univers 16:15:00 16:29:25 Visit Miguel Almaraz 350.1.13.10 ity of [facility] 4.2.7.2.[place] [id number] Id dical NAL 353 [facility] 2022-08-06 2022-08-06 Outpatient R MIGUEL ALMARAZ [facility] [id number] Univers 16:15:00 16:15:00 ity of [facility] 2022-08-06 2022-08-06 Telephone Miguel Almaraz [facility] 1.2.840.114 [id number] Univers 00:00:00 00:00:00 Shaun SLATER 350.1.13.10 i ty of [place] 4.2.7.2.[place] [phone] Id dical NAL 134 [facility] 2022-08-06 2022-08-06 Telephone [facility] 1.2.536.984 [id number] [id number] Univers 00:00:00 00:00:00 Santos SLATER 350.1.13.10 ity of [place] 4.2.7.2.[place] [phone] Id dical NAL 059 [facility] 2022-08-05 2022-08-05 Outpatient [facility] [id number] Univers 15:20:00 16:30:07 SANTOS ity o f [facility] 2022-08-05 2022-08-05 Office [facility] 1.2.840.114 [id number] Univers 15:20:00 16:30:07 Visit Santos SLATER 350.1.13.10 ity of [place].2.7.2.[place] [phone] Id dical NAL 059 [facility] 2022-08-05 2022-08-05 Telephone Jareth [facility] 1.2.144.977 [id number] 4430 Univers 00:00:00 00:00:00 Missy HEALTH 350.1.13.10 it y of [place] 4.2.7.2.686 Chao as ONESIMO?BLEA [phone] Id diclotus SANZ [address] [place] MEDICAL OFFICE [facility] 2022-08-04 2022-08-04 Telephone Miguel Almaraz [facility] 1.2.840.114 [id number] Univers 00:00:00 00:00:00 Cam [place] 350.1.13.10 i ty of [facility] 4.2.7.2.686 [place] [id number] Id dical NAL 134 [facility] 2022-08-04 2022-08-04 Telephone Jurgen [facility] 1.2.840.114 98 [id number] Univers 00:00:00 00:00:00 Domenic H HEALTH 350.1.13.10 it y of [place] 4.2.7.2.686 Chao as ONESIMO?BLEA 165.1264026 Id ruby SANZ [address] [place] MEDICAL OFFICE [facility] 2022-07-30 2022-07-30 Case Miguel Almaraz [facility] 1.2.627.411 [id number] Univers 00:00:00 00:00:00 Management Cam BRYON 350.1.13.10 ity of [facility] 4.2.7.2.[place] 435.8565515 Id dical NAL 134 [facility] 2022-07-29 2022-07-29 Office Jareth [facility] 1.2.840.114 [id number] Univers 13:30:00 14:06:54 Visit Missy HEALTH 350.1.13.10 it y of [place] 4.2.7.2.686 Chao as ONESIMO?BLEA 432.2074942 Id diclotus SANZ 044 [facility] OFFICE [facility] 2022-07-29 2022-07-29 Outpatient R MIGUEL ALMARAZ [facility] [id number] Univers 07:30:00 07:48:04 ity of [facility] 2022-07-29 2022-07-29 [employer] 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 Lab, Jose Monk [facility] 1.2.840.1 14 [id number] Univers 07:30:00 07:48:04 Visit Miguel Almaraz [facility] 350.1.13.10 ity of [place] 4.2.7.2.686 Chao as ONESIMO?BLEA 203.2824558 Id ruby SANZ [address] [place] MEDICAL OFFICE BUILDING 2022-07-29 2022-07-29 Orders Doctor GOLDEN 1.2.840.114 [id number] Univers 00:00:00 00:00:00 Only Unassigned, ROBERTA 350.1.13.10 ity of [place] [facility] 4.2.7.2.686 Chao as [phone] [facility] [address] [place] 2022-07-23 2022-07-23 Outpatient R JURGEN [facility] [id number] Univers 15:00:00 15:49:47 DOMENIC [facility] 2022-07-23 2022-07-23 Office Jurgen [facility] 1.2.360.756 [id number] [id number] Univers 15:00:00 15:49:47 Visit [facility] 350.1.13.10 it y of [place] 4.2.7.2.686 Hcao as ONESIMO?BLEA 043.1105647 Id ruby [facility] [address] [place] MEDICAL OFFICE [facility] 2022-07-23 2022-07-23 Office AlmarazMiguel [facility] 1.2.840.114 [id number] Univers 13:00:00 13:32:32 Visit Shaun WYNN 350.1.13.10 it y of [place]2.[place].2.[place] HEALTH 165.4915077 [facility] [address] 2022-07-14 2022-07-14 Outpatient R MICHAEL [facility] [id number] Univers 19:40:00 19:54:18 ELI delores [facility] 2022-07-14 2022-07-14 Urgent Eli Hoffmann [facility] 1.2.840.114 [id number] Univers 19:40:00 19:54:18 Care Unknown, Attending HEALTH 350.1.13.10 ity of [place] 4.2.7.2.686 Chao as ONESIMO?BLEA 433.0674403 Id ruby SANZ [address] MEDICAL OFFICE BUILDING 2022-07-14 2022-07-14 Orders Doctor GOLDEN 1.2.840.114 [id number] Univers 00:00:00 00:00:00 Only Unassigned, ROBERTA 350.1.13.10 ity of [place] [facility] 4.2.7.2.686 Chao as [id number] [facility] [address] [place] 2022-07-14 2022-07-14 Nurse GOLDEN Jeffers 1.2.840.114 [id number] Univers 00:00:00 00:00:00 Triage Zak Smith ROBERTA 350.1.13.10 ity of HOSPITAL 4.2.7.2.686 Chao as [phone] [facility] [address] [place] 2022-07-09 2022-07-09 Telephone [facility] 1.2.117.225 [id number] Univers 00:00:00 00:00:00 Missy HEALTH 350.1.13.10 it y of [place] 4.2.7.2.686 Chao as ONESIMO?BLEA [id number] [address] MEDICAL OFFICE [facility] 2022-07-02 2022-07-02 Outpatient [facility] [id number] Univers 10:40:00 10:40:00 SANTOS alaniz o f [facility] 2022-06-17 2022-06-17 Outpatient [facility] [id number] Univers 08:00:00 08:48:29 MISSY ity of [facility] 2022-06-17 2022-06-17 Office [facility] 1.2.840.114 [id number] Univers 08:00:00 08:48:29 Visit Missy HEALTH 350.1.13.10 it y of [place] 4.2.7.2.686 Chao as ONESIMO?BLEA 646.2338965 Id radha[address] MEDICAL OFFICE [facility] 2022-06-15 2022-06-15 Orders Doctor FRANKS 1.2.840.114 [id number] Univers 00:00:00 00:00:00 Only Unassigned, ROBERTA 350.1.13.10 ity of [place] [facility]OSPITAL 4.2.7.2.686 Chao as [id number] [address] 2022-06-14 2022-06-14 Outpatient R JARETH [facility] [id number] Univers 08:00:00 08:00:00 MISSYDULCE alaniz [facility] 2022-06-03 2022-06-03 Orders Doctor GOLDEN 1.2.840.114 [id number] Univers 00:00:00 00:00:00 Only Unassigned, ROBERTA 350.1.13.10 ity of [place] [facility] 4.2.7.2.686 Chao as [id number] [address] 2022-05-20 2022-05-20 [employer] 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 Lab, Ang - Db [facility] 1.2.840.1 14 [id number] Univers 09:45:00 10:00:00 Visit Missy Templeton HEALTH 350.1.13.10 ity of [place] 4.2.7.2.686 Chao as ONESIMO?BLEA [id number] [facility] [address] [place] MEDICAL OFFICE [facility] 2022-05-20 2022-05-20 Outpatient R JARETH [facility] [id number] Univers 09:00:00 09:53:11 MISSY alaniz [facility] 2022-05-20 2022-05-20 Office [facility] 1.2.840.114 [id number] Univers 09:00:00 09:53:11 Visit Missy HEALTH 350.1.13.10 it y of [place] 4.2.7.2.686 Chao as ONESIMO?BLEA [phone] [address] MEDICAL OFFICE [facility] 2022-05-20 2022-05-20 Telephone Jareth [facility] 1.2.812.195 [id number] [id number] Univers 00:00:00 00:00:00 Missy HEALTH 350.1.13.10 it y of [place] 4.2.7.2.686 Chao as ONESIMO?BLEA 192.0904838 [address] MEDICAL OFFICE [facility] 2022-05-18 2022-05-18 Abstract Jareth [facility] 1.2.840.114 [id number] Univers 00:00:00 00:00:00 Missy HEALTH 350.1.13.10 it y of [place] 4.2.7.2.686 Chao as ONESIMO?BLEA [phone] Me dical YVON [address] [place] MEDICAL OFFICE [facility] 2022-04-01 2022-04-01 Letter Provider, [facility] 1.2.857.774 [id number] Univers 00:00:00 00:00:00 (Out) Ang Db HEALTH 350.1.13.10 it y of Urgent Care [place] 4.2.7.2.686 [place] ONESIMO?BLEA 274.5380751 Id diclotus [place] 370 [facility] OFFICE [facility] 2022-03-31 2022-03-31 Outpatient R [facility] [id number] Univers 17:15:00 17:15:00 ity of [facility] 2022-03-31 2022-03-31 Outpatient R KRISTA [facility] [id number] Univers 12:15:00 12:34:43 ANDIE ity o f [facility] 2022-03-31 2022-03-31 Laboratory Only, Ang Db Test [facility] 1.2.8 40.114 [id number] Univers 12:15:00 12:30:00 Only Unknown, Attending HEALTH 350.1.13.10 ity of [place] 4.2.7.2.686 Chao as ONESIMO?BLEA 862.4122929 Id ruby SANZ 370 [facility] 2022-03-30 2022-03-30 Outpatient R JIM [facility] [id number] Univers 16:30:00 16:30:00 OPAL alaniz [facility] 2022-03-22 2022-03-22 Outpatient R JIM [facility] [id number] Univers 09:15:00 10:13:27 OPAL yajairadelores [facility] 2022-03-22 2022-03-22 Office [facility] 1.2.353.407 [id number] Univers 09:15:00 10:13:27 Visit Opal SLATER 350.1.13.10 i ty of [place]2.7.2.[place] 427.5811804 Id diclotus EATON 188 [facility] 2022-03-11 2022-03-11 Outpatient R SARAH [facility] [id number] Univers 14:30:00 15:56:36 WENDY ity of [facility] 2022-03-11 2022-03-11 Office Sarah [facility] 1.2.840.114 [id number] Univers 14:30:00 15:56:36 Visit [facility] 350.1.13.10 it y of [place].7.2.[place] - [phone] [facility] [address] 2022-03-05 2022-03-05 Telephone [facility] 1.2.385.960 [id number] 7696 Univers 00:00:00 00:00:00 Missy HEALTH 350.1.13.10 it y of [place] 4.2.7.2.686 Chao as ONESIMO?BLEA 293.5908911 [facility] 044 [facility] OFFICE [facility] 2022-03-03 2022-03-03 Telephone [facility] 1.2.441.452 [id number] 9111 Univers 00:00:00 00:00:00 Missy HEALTH 350.1.13.10 it y of [place] 4.2.7.2.686 Chao as ONESIMO?BLEA 652.6701823 [facility] 044 [facility] OFFICE [facility] 2022-03-02 2022-03-02 [employer] 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 2, Adc Lab [facility] 1.2.840.114 [id number] Univers 14:15:00 14:30:00 Visit Missy [place] 350.1.13.10 ity of [place].7.2.[place] [id number] [facility] 353 [facility] 2022-03-02 2022-03-02 Outpatient R JARETH [facility] [id number] Univers 14:15:00 14:15:00 MISSY ity [facility] 2022-03-02 2022-03-02 Telephone [facility] 1.2.384.932 [id number] Univers 00:00:00 00:00:00 Missy HEALTH 350.1.13.10 it y of [place] 4.2.7.2.686 Chao as ONESIMO?BLEA 496.7787050 Id dical YVON [address] [place] MEDICAL OFFICE [facility] 2022-03-01 2022-03-01 Outpatient R JESSIDC [facility] [id number] Univers 16:00:00 17:05:39 MISSY ity [facility] 2022-03-01 2022-03-01 Office [facility] 1.2.840.114 [id number] Univers 16:00:00 17:05:39 Visit Missy HEALTH 350.1.13.10 it y of [place] 4.2.7.2.686 Chao as ONESIMO?BLEA 335.7177808 Id dical YVON [address] [place] MEDICAL OFFICE [facility] 2022-02-02 2022-02-02 [facility] 1.2.840.114 [id number] Univers 17:29:08 23:59:00 Encounter [place] HEALTH 350.1.13.10 ity of [place] 4.2.7.2.686 Chao as ONESIMO?BLEA 351.6321669 Id diclotus SANZ 808 [facility] OFFICE [facility] 2022-02-02 2022-02-02 [facility] [id number] Univers 17:00:00 17:48:05 ELMIRA ity [facility] 2022-02-02 2022-02-02 [facility] 1.2.840.114 [id number] Univers 17:00:00 17:48:05 [facility] 350.1.13.10 ity of [place] 4.2.7.2.686 Chao as ONESIMO?BLEA 082.6699935 Id dical YVON [address] [place] MEDICAL OFFICE [facility] 2022-02-02 2022-02-02 [facility] [id number] Univers 16:00:00 16:00:00 MISSY alaniz [facility] 2022-02-02 2022-02-02 [facility] 1.2.717.074 [id number] Univers 00:00:00 00:00:00 [place] HEALTH 350.1.13.10 it y of [place] 4.2.7.2.686 Chao as ONESIMO?BLEA 351.5511999 Id ruby SANZ 370 [facility] OFFICE [facility] 2022-02-01 2022-02-01 Outpatient R KARUNA [facility] [id number] Univers 16:15:00 16:41:01 KEDAR delores [facility] 2022-02-01 2022-02-01 [facility] [id number] Univers 16:15:00 16:41:01 Visit Kedar Smith [facility] 350.1.13.10 it y of [place] 4.2.7.2.686 Chao as ONESIMO?BLEA [id number] Id ruby SANZ 198 [facility] OFFICE [facility] 2021-12-31 2021-12-31 [employer] 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 Lab, Ang - Db [facility] [id number] Univers 11:45:00 12:00:00 Visit Kedar Beckman [facility] [id number] ity of [place] 4.2.7.2.686 Chao as ONESIMO?BLEA [id number] Id ruby SANZ 353 [facility] OFFICE [facility] 2021-12-31 2021-12-31 Outpatient R KARUNA [facility] [id number] Univers 11:15:00 11:42:25 KEDAR [facility] 2021-12-31 2021-12-31 [facility] [id number] Univers 11:15:00 11:42:25 Visit Kedar Smith [facility] 350.1.13.10 it y of [place] 4.2.7.2.686 Chao as ONESIMO?BLEA [id number] Id ruby SANZ [address] [place] [address] OFFICE [facility] 2021-12-18 2021-12-18 Outpatient FABRIZIO BENZ [facility] [id number] Univers 11:20:00 11:20:00 FABRIZIO DUNBAR [facility] 2021-12-15 2021-12-15 Outpatient FABRIZIO BENZ [facility] [id number] Univers 16:00:00 16:37:29 FABRIZIO DUNBAR [facility] 2021-12-15 2021-12-15 Office Randy [facility] [id number] Univers 16:00:00 16:37:29 Visit Fabrizio Salinas [facility] [id number] ity of [place] 4.2.7.2.686 Chao as ONESIMO?BLEA [id number] Id ruby NOMAN 092 [facility] OFFICE BUILDING 2021-12-15 2021-12-15 Alannah Dunbar [facility] [id number] Univers 00:00:00 00:00:00 (Out) Fabrizio Salinas HEALTH 350.1.13.10 ity of [place] 4.2.7.2.686 Chao as ONESIMO?BLEA [id number] Id ruby SANZ 220 [facility] OFFICE [facility] 2021-12-14 2021-12-14 Outpatient FABRIZIO BENZ [facility] [id number] Univers 11:20:00 11:20:00 FABRIZIO DUNBAR [facility] 2021-12-07 2021-12-07 Outpatient Star FERNANDO [facility] [id number] Univers 15:30:00 16:03:57 KATHRYN alaniz [facility] 2021-12-07 2021-12-07 Outpatient Star FERNANDO [facility] [id number] Univers 13:30:00 13:30:00 KATHRYN alaniz [facility] 2021-11-27 2021-11-27 Outpatient FABRIZIO BENZ [facility] [id number] Univers 09:20:00 10:04:06 FABRIZIO DUNBAR [facility] 2021-11-17 2021-11-17 Outpatient Star BRICEÑO [facility] [id number] Univers 10:13:41 23:59:00 [facility] 2021-11-17 2021-11-17 [facility] 1.2.275.247 [id number] Univers 10:13:41 23:59:00 Encounter Irina [facility] 350.1.13.10 ity of [place] 4.2.7.2.686 [place]ir[place] MONREAL [id number] [address] OFFICE BUILDING 2021-11-17 2021-11-17 Outpatient Star BRICEÑO [facility] [id number] Univers 11:00:00 11:00:00 IRINA alaniz [facility] 2021-11-03 2021-11-03 [facility]phone [facility] 1.2.903.968 [id number] Univers 00:00:00 00:00:00 Missy SLATER 350.1.13.10 i ty of [facility] 4.2.7.2.686 [place] [phone] [address] 2021-11-02 2021-11-02 [facility] [id number] Univers 16:00:00 16:40:05 MISSY alaniz [facility] 2021-11-02 2021-11-02 Office [facility] 1.2.840.114 [id number] [facility] 16:00:00 16:40:05 Visit [facility] 350.1.13.10 it y of [place] 4.2.7.2.686 Chao as ONESIMO?BLEA [id number] [address] OFFICE [facility] 2021-11-02 2021-11-02 Letter [facility] 1.2.840.114 [id number] Univers 00:00:00 00:00:00 (Out) Missy HEALTH 350.1.13.10 it y of [place] 4.2.7.2.686 Chao as ONESIMO?BLEA [id number] [address] OFFICE [facility] 2021-11-02 2021-11-02 Telephone [facility] 1.2.840.114 [id number] Univers 00:00:00 00:00:00 [facility] 350.1.13.10 ity of [place] 4.2.7.2.686 [place]ao as ONESIMO?BLEA [phone] [place] 609262 [facility] OFFICE [facility] 2021-11-02 2021-11-02 Telephone [facility] 1.2.622.849 [id number] Univers 00:00:00 00:00:00 Missy HEALTH 350.1.13.10 it y of [place] 4.2.7.2.686 Chao as ONESIMO?BLEA [phone] [address] OFFICE [facility] 2021-10-282021-10-28 Outpatient R KARUNA [facility] [id number] Univers 15:30:00 15:30:00 KEDAR [facility] 2021-10-27 2021-10-27 Hospital Randy [facility] 1.2.688.495 [id number] Univers 09:11:35 23:59:00 Encounter [facility] 350.1.13.10 ity jessica [place] 4.2.7.2.686 Chao as ONESIMO?BLEA [phone] Id dical KNEY 809 [facility] OFFICE [facility] 2021-10-27 2021-10-27 Outpatient R FABRIZIO DUNBAR [facility] [id number] Univers 08:00:00 09:07:52 FABRIZIO DUNBAR [facility] 2021-10-27 2021-10-27 Office [facility] 1.2.840.114 [id number] Univers 08:00:00 09:07:52 Visit [facility] 350.1.13.10 ity jessica [place] 4.2.7.2.686 Chao as ONESIMO?BLEA [phone] Id radhalotus SANZ 092 [facility] OFFICE [facility] 2021-10-27 2021-10-27 Outpatient FABRIZIO BENZ [facility] [id number] Univers 08:00:00 09:07:52 FABRIZIO DUNBAR [facility] 2021-10-22 2021-10-22 Outpatient R SINTIA [facility] [id number] Univers 15:45:00 15:45:00 DANIEL [facility] 2021-10-15 2021-10-15 Outpatient R JIM [facility] [id number] Univers 15:45:00 16:10:59 OPAL [facility] 2021-10-15 2021-10-15 Office [facility] 1.2.064.064 [id number] Univers 15:45:00 16:10:59 Visit Opal [place] 350.1.13.10 i ty of [place].2.7.2.[place] [id number] Id dical NAL 188 [facility] 2021-10-15 2021-10-15 Letter [facility] 1.2.798.940 [id number] Univers 00:00:00 00:00:00 (Out) Opal SLATER 350.1.13.10 i ty of [facility] 4.2.7.2.[place] PROF[place] [phone] Id dical [address] 2021-10-09 2021-10-09 Outpatient R YARA MORRISON [facility] [id number] Univers 13:00:00 13:00:00 ity [facility] 2021-10-09 2021-10-09 Outpatient R TAMIKO YARA [facility] [id number] Univers 13:00:00 13:00:00 [facility] 2021-10-09 2021-10-09 Outpatient R TAMIKO [facility] [id number] Univers 13:00:00 13:00:00 [facility] 2021-10-02 2021-10-02 Outpatient [facility] ROBERT [id number] Univers 08:11:00 10:42:00 [facility] 2021-10-02 2021-10-02 [facility] 1.2.840.114 [id number] Univers 08:11:00 10:42:00 Encounter Opal BRYON 350.1.13.10 ity of [place] 4.2.7.2.686 [place] SURGICAL [id number] [facility] 071 Branch 2021-10-02 2021-10-02 Surgery [facility] 1.2.638.119 [id number] Univers 09:24:00 10:37:00 Opal SLATER 350.1.13.10 i ty of [place] 4.2.7.2.686 [place] SURGICAL [phone] [facility] 020 Branch 2021-10-01 2021-10-01 Laboratory Only, Adc Test [facility] 1.2.840. 114 [id number] Univers 09:00:00 09:15:00 Only Fernandez Opal BRYON 350.1.13.10 ity of [place] 4.2.7.2.686 [place] CAMPUS [id number] [facility] [address] [place] 2021-10-01 2021-10-01 [facility] [id number] Univers 09:00:00 09:00:00 OPAL alaniz [facility] 2021-10-01 2021-10-01 Orders Doctor GOLDEN 1.2.840.114 [id number] Univers 00:00:00 00:00:00 Only Unassigned, ROBERTA 350.1.13.10 ity [facility] 4.2.7.2.686 Chao as [phone] [facility] 00[address] [place] 2021-10-01 2021-10-01 Telephone [facility] 1.2.840.114 [id number] Univers 00:00:00 00:00:00 Opal SLATER 350.1.13.10 i ty of [place] 4.2.7.2.686 [place] [facility] [phone] [facility] 188 [facility] 2021-09-30 2021-09-30 Outpatient R VARUN [facility] [id number] Univers 16:00:00 16:00:00 SONYA delores [facility] 2021-09-23 2021-09-23 Letter [facility] 1.2.722.895 [id number] Univers 00:00:00 00:00:00 (Out) Opal SLATER 350.1.13.10 i ty of [place] 4.2.7.2.[place] [phone] [address] 2021-09-23 2021-09-23 Telephone [facility] 1.2.840.114 [id number] Univers 00:00:00 00:00:00 Wondiful A HEALTH 350.1.13.10 ity of [place] 4.2.7.2.686 Chao as ONESIMO?BLEA [phone] Id ruby [address] MEDICAL [facility] 2021-08-28 2021-08-28 Telephone [facility] 1.2.715.462 [id number] Univers 00:00:00 00:00:00 Lucy SLATER 350.1.13.10 ity of [facility] 4.2.7.2.686 [place] [phone] Id dical NAL 204 [facility] 2021-08-28 2021-08-28 Prep For Paige [facility] 1.2.840.114 [id number] Univers 00:00:00 00:00:00 Surgery Lucy Louise BRYON 350.1.13.10 ity of [facility] 4.2.7.2.686 [place] [phone] Id dical NAL 204 [facility] 2021-08-18 2021-08-18 Outpatient R JMI [facility] [id number] Univers 15:00:00 15:30:21 OPAL ity of [facility] 2021-08-18 2021-08-18 Office [facility] 1.2.815.740 [id number] Univers 14:33:48 15:30:21 Visit Opal SLAETR 350.1.13.10 i ty of [place] 4.2.7.2.686 [place] [phone] Id dical NAL 188 [facility] 2021-08-18 2021-08-18 Orders Doctor GOLDEN 1.2.840.114 [id number] Univers 00:00:00 00:00:00 Only Unassigned, ROBERTA 350.1.13.10 ity of [place] [facility] 4.2.7.2.686 Chao as [phone] [facility] 00[address] [place] 2021-08-14 2021-08-14 Telephone Yee [facility] 1.2.840.114 [id number] Univers 00:00:00 00:00:00 Wondiful A HEALTH 350.1.13.10 ity of [place] 4.2.7.2.686 Chao as ONESIMO?BLEA [phone] Id dical KNEY [address] [place] MEDICAL OFFICE BUILDING 2021-08-11 2021-08-11 Hospital Miguel Almaraz [facility] 1.2.840.114 [id number] Univers 14:53:01 23:59:00 Encounter Shaun SLATER 350.1.13.10 ity of [place] 4.2.7.2.686 [place] CAMPUS [phone] [facility] 8[address] [place] 2021-08-11 2021-08-11 [facility] 1.2.068.688 [id number] Univers 14:50:08 14:52:00 Encounter Meseret SLATER 350.1.13.10 ity of [facility] 4.2.7.2.686 [facility] [id number] [facility] 8[address] [place] 2021-08-11 2021-08-11 Outpatient R RUFINA MIGUEL [facility] [id number] Univers 14:47:24 14:49:00 ity [facility] 2021-08-11 2021-08-11 Hospital Rufina [facility] 1.2.840.114 [id number] Univers 14:47:24 14:49:00 Encounter Shaun SLATER 350.1.13.10 ity [facility] 4.2.7.2.686 [facility] [phone] [facility] [address] [place] 2021-08-11 2021-08-11 Outpatient R RUFINA [facility] [id number] Univers 00:00:00 00:00:00 [facility] 2021-07-28 2021-07-28 Outpatient R FABRIZIO DUNBAR [facility] [id number] Univers 15:40:00 15:40:00 F[facility]ZIO DUNBAR [facility] 2021-07-27 2021-07-27 Outpatient R RUFINA MIGUEL [facility] [id number] Univers 15:00:00 15:58:39 [facility] 2021-07-27 2021-07-27 Office Rufina [facility] 1.2.969.587 [id number] Univers 14:41:29 15:58:39 Visit Shaun SLATER 350.1.13.10 i ty of [place] 4.2.7.2.686 [facility] PROFESSIO [phone] Id dical NAL 134 [facility] 2021-07-27 2021-07-27 Outpatient R RUFINA MIGUEL [facility] [id number] Univers 15:00:00 15:00:00 [facility] 2021-07-27 2021-07-27 Orders Doctor FRANKS 1.2.840.114 [id number] Univers 00:00:00 00:00:00 Only Unassigned, ROBERTA 350.1.13.10 ity of [place] [facility] 4.2.7.2.686 Chao as [phone] [address] 2021-07-08 2021-07-08 [employer] 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 2, Adc Lab [facility] 1.2.840.114 [id number] Univers 08:10:52 14:43:19 Visit Meseret Fraire Dani [place] 350.1.13. 10 ity of [place] 4.2.7.2.[place] Profess[place] [phone] Id dical nal 353 [facility] 2021-07-08 2021-07-08 [employer] 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 2, Adc Lab [facility] 1.2.840.114 [id number] [facility] 08:10:52 08:25:52 Visit Meseret Fraire [place] 350.1.13. 10 ity of [place] 4.2.7.2.686 [place] Profess[place] [phone] Id dical [facility] 353 [facility] 2021-07-08 2021-07-08 Outpatient R YEE [facility] [id number] Univers 08:15:00 08:15:00 WONDIFUL ity o f [facility] 2021-07-07 2021-07-07 Office [facility] 1.2.840.114 [id number] 186 [facility] 16:17:47 17:08:06 Visit Jarrodadele Dani Health 350.1.13.10 ity of [place] 4.2.7.2.686 Chao as Onesimo?Blea [phone] Id dical kney 044 [facility] Office [facility] 2021-07-07 2021-07-07 Outpatient R YEE [facility] [id number] Univers 16:30:00 16:30:00 WONDIFUL ity o f [facility] 2021-07-01 2021-07-01 Office Miguel Almaraz [facility] 1.2.202.019 [id number] Univers 15:36:17 16:31:44 Visit Shaun [place] 350.1.13.10 i ty of [place] 4.2.7.2.686 [place] [phone] Id dical nal 134 [facility] 2021-07-01 2021-07-01 Outpatient R MIGUEL ALMARAZ [facility] [id number] Univers 15:30:00 15:30:00 ity [facility] 2021-07-01 2021-07-01 Orders Doctor GOLDEN 1.2.840.114 [id number] Univers 00:00:00 00:00:00 Only Unassigned, ROBERTA 350.1.13.10 ity of [place] [facility] 4.2.7.2.686 Chao as [id number] [address] 2021-06-29 2021-06-29 Telephone Rufina [facility] 1.2.840.114 [id number] Univers 00:00:00 00:00:00 Shaun Slater 350.1.13.10 i ty [facility] 4.2.7.2.686 [place] [phone] Id dical nal 134 [facility] 2021-06-25 2021-06-25 Outpatient R MIGUEL ALMARAZ [facility] [id number] Univers 08:00:00 08:00:00 ity [facility] 2021-06-24 2021-06-24 Imm/Inj Nurse, Adc Pob Immunization [facility] 1.2.840.114 [id number] Univers 16:33:34 16:33:43 Visit Donato Palmer 350.1.13 .10 ity [facility] 4.2.7.2.[place] [phone] Id dical [facility] 421 [facility] 2021-06-24 2021-06-24 Outpatient R SURINDER [facility] [id number] Univers 16:30:00 16:30:00 DONATO itdelores [facility] 2021-05-20 2021-05-20 Outpatient MIGUEL SALINAS [facility] [id number] Univers 16:00:00 16:00:00 ity [facility] 2021-05-12 2021-05-12 Outpatient R YEE [facility] [id number] Univers 13:00:00 13:00:00 WONDIFUL ity o f [facility] 2021-05-12 2021-05-12 [employer] 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 2, Adc Lab [facility] 1.2.840.114 [id number] Univers 08:22:12 08:37:12 Visit Meseret Fraire Bryon 350.1.13. 10 ity of [place].2.7.2.686 [place] [phone] Id dical [facility] 353 [facility] 2021-05-12 2021-05-12 Outpatient R YEE, [facility] [id number] Univers 08:15:00 08:15:00 WONDIFUL ity o f [facility] 2021-05-12 2021-05-12 Outpatient R YEE, [facility] [id number] Univers 08:15:00 08:15:00 WONDIFUL ity o f [facility] 2021-05-11 2021-05-11 Outpatient R YEE, [facility] [id number] Univers 16:00:00 16:00:00 WONDIFUL ity o f [facility] 2021-03-23 2021-03-23 Office [facility] 1.2.840.114 [id number] [facility] 15:37:18 16:04:50 Visit Santos Slater 350.1.13.10 ity of [place].2.686 [place] [phone] [address] 2021-03-23 2021-03-23 Outpatient R LINK, [facility] [id number] Univers 16:00:00 16:00:00 QIANGJUN ity o [facility] 2021-03-11 2021-03-11 Outpatient R LINK, [facility] [id number] Univers 15:40:00 15:40:00 QIANGJUN ity o [facility] 2020-12-31 2020-12-31 Telephone [facility] 1.2.864.044 [id number] Univers 00:00:00 00:00:00 Jamessoraida [place] 350.1.13.10 ity of [place].7.2.[place] Profess[place] [phone] [address] 2020-12-30 2020-12-30 Outpatient R LINK, [facility] [id number] Univers 16:00:00 16:00:00 QIANGJUN ity o f [facility] 2020-12-25 2020-12-25 Outpatient R LINK, [facility] [id number] Univers 09:00:00 09:00:00 QIANGJUN ity o f [facility] 2020-12-18 2020-12-18 Outpatient R YEE, [facility] [id number] Univers 10:45:00 10:45:00 WONDIFUL ity o f [facility] 2020-12-18 2020-12-18 Outpatient R YEE, [facility] [id number] Univers 10:45:00 10:45:00 WONDIFUL ity o f [facility] 2020-12-09 2020-12-09 Nurse Visit, [employer] Nurse [facility] 1.2.840.1 14 [id number] Univers 12:02:27 12:04:36 Visit Ayla Hall 350.1.13. 10 ity of [place].2.7.2.686 [place] [phone] Id dical nal [address] [place] [address] 2020-12-09 2020-12-09 [facility] [id number] Univers 12:00:00 12:00:00 AYLA alaniz of [facility] 2020-12-08 2020-12-08 Telephone [facility] 1.2.646.168 [id number] Univers 00:00:00 00:00:00 Santos Slater 350.1.13.10 ity of [place] 4.2.7.2.686 [place] [phone] Id dical nal [address] [place] [address] 2020-12-05 2020-12-05 Office [facility] 1.2.840.114 [id number] Univers 10:05:08 10:45:56 Visit Santos Slater 350.1.13.10 ity of [place] 4.2.7.2.686 [place] [phone] Id dical nal [address] [place] [address] 2020-12-05 2020-12-05 [facility] [id number] Univers 10:00:00 10:00:00 JAMESJUN ity o f [facility] 2020-12-01 2020-12-01 Telephone [facility] 1.2.840.114 [id number] Univers 00:00:00 00:00:00 Wondiful A Health 350.1.13.10 ity of [place] 4.2.7.2.686 Chao as Professio [phone] [facility] 044 [facility] 2020-11-28 2020-11-28 Telephone [facility] 1.2.840.114 [id number] Univers 00:00:00 00:00:00 Wondiful A Health 350.1.13.10 ity of [place] 4.2.7.2.686 Chao as Professio [phone] Id dical nal 044 [facility] 2020-11-27 2020-11-27 [employer] 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 Cristóbal, Adc Lab Main [facility] 1.2.8 40.114 [id number] Univers 12:14:23 12:29:23 Visit Missy Templeton [place] 350.1.13.10 ity of [place] 4.2.7.2.[place] [phone] Id [facility] 353 [facility] 2020-11-27 2020-11-27 Office [facility] 1.2.840.114 [id number] Univers 11:35:55 12:05:05 Visit Missy Health 350.1.13.10 it y of [place] 4.2.7.2.686 Chao as Professio [phone] Id dic[address] 2020-11-27 2020-11-27 Outpatient [facility] [id number] Univers 11:30:00 11:30:00 MISSY ity of [facility] 2020-11-27 2020-11-27 Telephone [facility] 1.2.124.992 [id number] Univers 00:00:00 00:00:00 Missy Health 350.1.13.10 it y of [place] 4.2.7.2.686 Chao as Professio [phone] Id dical nal 0[address] [place] Office [facility] One 2020-11-20 2020-11-20 Office Miguel Almaraz [facility] 1.2.840.114 [id number] Univers 15:40:03 17:27:48 Visit DevancallieJustynaton 350.1.13.10 ity of [place] 4.2.7.2.[place] [phone] Id dical nal 134 [facility] 2020-11-20 2020-11-20 Outpatient R HEMA [facility] [id number] Univers 15:30:00 15:30:00 JUSTYNA ity [facility] 2020-10-23 2020-10-23 Laboratory Lab, [facility] 1.. 840.114 [id number] Univers 11:28:40 11:48:40 Only Sonya Gillis A Health 350.1.13.10 ity of [place] 4.2.7.2.686 Chao as Professio [phone] Id dical nal 044 [place] Office [facility] 2020-10-23 2020-10-23 Outpatient R [facility] [id number] Univers 11:00:00 11:00:00 ity of [facility] 2020-10-22 2020-10-22 Outpatient R [facility] [id number] Univers 18:20:00 18:20:00 ity of [facility] 2020-10-16 2020-10-16 Telephone Lab, [facility] ..840.114 [id number] Univers 00:00:00 00:00:00 [facility] P[facility] I Health 350.1.13.10 ity of [place] 4.2.7.2.686 Chao as Professio [phone] Id dical nal 044 [place] Office [facility] One 2020-10-15 2020-10-15 [facility] 1.2. 840.114 [id number] Univers 08:52:58 09:12:58 Only Missy [facility] 350.1.13.10 ity of [place] 4.2.7.2.686 Chao as Professio [phone] [address] Office Building One 2020-10-15 2020-10-15 Outpatient R [facility] [id number] Univers 09:00:00 09:00:00 ity of [facility] 2020-10-15 2020-10-15 Telephone GOLDEN Fraire 1.2.840.114 [id number] Univers 00:00:00 00:00:00 Wondiful A ROBERTA 350.1.13.10 ity [facility] 4.2.7.2.686 Chao as [phone] [facility] 0[address] [place] 2020-10-09 2020-10-09 Outpatient R [facility] [id number] Univers 16:00:00 16:00:00 ity [facility] 2020-10-09 2020-10-09 Nurse Radha Johnston 1.2.840.114 [id number] Univers 00:00:00 00:00:00 Triage ROBERTA 350.1.13.10 it y of [facility] 4.2.7.2.686 Chao as [phone] [facility] [address] [place] 2020-10-08 2020-10-08 Emergency Dorado, [facility] 1.2.188.860 [id number] Univers 12:24:00 16:17:00 Hayden Slater 350.1.13.10 i ty [facility] 4.2.7.2.686 [place] [facility] [phone] [facility] [address] [place] 2020-10-08 2020-10-08 Nurse Nurse, [facility] Care [facility] 1.2 .840.114 [id number] Univers 11:55:26 13:15:09 Visit [facility] 350.1.13.10 ity [facility] 4.2.7.2.686 Chao as Professio [phone] [address] Office Building One 2020-10-08 2020-10-08 Outpatient R LUZ [facility] [id number] Univers 07:10:00 07:10:00 SLOAN ity [facility] 2020-09-17 2020-09-17 Outpatient R LUZ [facility] [id number] Univers 14:10:00 14:10:00 SLOAN ity [facility] 2020-08-28 2020-08-28 Office [facility] 1.2.840.114 [id number] Univers 10:30:40 11:17:49 Visit Missy Neves 350.1.13.10 it y of [place] 4.2.7.2.686 [place]cao as Professio [phone] [address] 2020-08-28 2020-08-28 Outpatient R [facility] [id number] Univers 10:30:00 10:30:00 MISSY alaniz [facility] 2020-08-28 2020-08-28 Telephone [facility] 1.2.045.464 [id number] Univers 00:00:00 00:00:00 Missy Neves 350.1.13.10 it y of [place] 4.2.7.2.686 [place] Professio [id number] [address] 2020-08-01 2020-08-01 Office [facility] 1.2.840.114 [id number] Univers 13:48:17 14:43:02 Visit Gabriela Slater 350.1.13.10 [place] [phone] [address] 2020-08-01 2020-08-01 Outpatient R [facility] [id number] Univers 14:00:00 14:00:00 GABRIELA alaniz of [facility] 2020-08-01 2020-08-01 Emergency [facility] [id number] Univers 05:40:00 06:48:00 Seymour Slater 350.1.13.10 i [place] [phone] [address] 2020-08-01 2020-08-01 Letter [facility] 1.2.840.114 [id number] Univers 00:00:00 00:00:00 (Out) Gabriela Slater 350.1.13.10 [place] [phone] [address] 2020-07-31 2020-07-31 Case Miguel Almaraz [facility] [id number] Univers 00:00:00 00:00:00 Management [place] 350.1.13.10 [place]2.[place] [phone] [address] 2020-07-03 2020-07-03 Office Miguel Almaraz [facility] [id number] Univers 16:04:02 16:48:25 Visit [place] 350.1.13.10 i [place] 4[place].2.[place] [phone] [address] 2020-07-03 2020-07-03 Outpatient R MIGUEL ALMARAZ [facility] [id number] Univers 16:00:00 16:00:00 ity of [facility] 2020-07-03 2020-07-03 Orders Doctor GOLDEN 1.2.840.114 [id number] Univers 00:00:00 00:00:00 Only Unassigned, ROBERTA 350.1.13.10 ity of [facility] 4.2.7.2.686 [place]ao as [phone] [address] 2020-06-24 2020-06-24 Telephone Miguel Almaraz [facility] 1.2.840.114 [id number] Univers 00:00:00 00:00:00 [place] 350.1.13.10 [place] [phone] [address] 2020-06-23 2020-06-23 Telephone Miguel Almaraz [facility] 1.2.840.114 [id number] Univers 00:00:00 00:00:00 [place] 350.1.13.10 [place] [phone] [address] 2020-06-20 2020-06-20 Outpatient R AMIRA [facility] [id number] Univers 13:00:00 13:00:00 [facility]-19 2020-06-19 Outpatient R RUFINA [facility] [id number] Univers 13:32:10 23:59:00 ity [facility] 2020-06-19 2020-06-19 [facility] 1.2.840.114 [id number] Univers 13:32:10 23:59:00 Encounter [place] 350.1.13.10 [place] [phone] [facility] [address] [place] 2020-06-19 2020-06-19 Office [facility] 1.2.545.328 [id number] Univers 15:35:12 16:45:55 Visit [place] 350.1.13.10 [place] 4.2.7.2.686 [facility] Austina s Professio [phone] [address] 2020-06-19 2020-06-19 [facility] [id number] Univers 16:15:00 16:15:00 [facility] 2020-06-19 2020-06-19 Outpatient R RUFINA [facility] [id number] Univers 15:45:00 15:45:00 ity of [facility] 2020-06-19 2020-06-19 [facility] Rufina [facility] 1.2.840.114 [id number] Univers 13:30:38 13:31:00 Encounter [place] 350.1.13.10 [place] [phone] [facility] [address] 2020-06-18 2020-06-18 Telephone Rufina [facility] 1.2.840.114 [id number] Univers 00:00:00 00:00:00 [place] 350.1.13.10 [place] [phone] Id [facility] 134 [facility] 2020-06-10 2020-06-10 Telephone Rufina [facility] 1.2.840.114 [id number] Univers 00:00:00 00:00:00 [place] 350.1.13.10 [place] [phone] Id dical nal 134 [facility] 2020-05-29 2020-05-29 [employer] 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 2, Adc Lab [facility] 1.2.840.114 [id number] [facility] 10:08:36 10:23:36 Visit Meseret Fraire 350.1.13. 10 [place] [phone] [facility] 353 [facility] 2020-05-29 2020-05-29 Outpatient R YEE [facility] [id number] Univers 10:15:00 10:15:00 WONDIFUL ity o f [facility] 2020-05-28 2020-05-28 Telephone AlmarazMiguel [facility] 1.2.840.114 [id number] Univers 00:00:00 00:00:00 Cam Bryon 350.1.13.10 [place] [phone] Id dicar nal [address] [place] [address] 2020-05-27 2020-05-27 Telephone Miguel Almaraz [facility] 1.2.840.114 [id number] Univers 00:00:00 00:00:00 [place] 350.1.13.10 [place] [phone] Id dical nal 134 [facility] 2020-05-20 2020-05-20 [employer] 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 2, Adc Lab [facility] 1.2.840.114 [id number] Univers 14:55:37 15:10:37 Visit Gabriela Collier 350.1.13.10 ity of Miguel Almaraz [place] 4.2.7.2.686 [place] Profess[place] [phone] Id dic[address] 2020-05-20 2020-05-20 Office Yee [facility] 1.2.840.114 [id number] Univers 14:10:16 14:51:51 Visit Meseret Slater 350.1.13.10 [place] [phone] Id dical nal 044 [facility] 2020-05-20 2020-05-20 Outpatient R YEE [facility] [id number] Univers 14:30:00 14:30:00 WONDIFUL ity o f [facility] 2020-05-20 2020-05-20 Office Miguel Almaraz [facility] 1.2.840.114 [id number] Univers 12:46:35 13:59:04 Visit Gabriela Collier 350.1.13.10 [place] [phone] Id dical nal 134 [facility] 2020-05-20 2020-05-20 Orders Doctor GOLDEN 1.2.840.114 [id number] Univers 00:00:00 00:00:00 Only Unassigned, ROBERTA 350.1.13.10 ity of [place] [facility] 4.2.7.2.686 Chao as [phone] [address] 2020-05-16 2020-05-16 Telephone Miguel Almaraz [facility] 1.2.840.114 [id number] Univers 00:00:00 00:00:00 Shaun Slater 350.1.13.10 [place] [phone] Id dical nal 134 [facility] 2020-05-08 2020-05-08 Telephone Hema [facility] 1.2.840.114 [id number] Univers 00:00:00 00:00:00 Justyna Slater 350.1.13.10 [place] [phone] Id dical nal 134 [facility] 2020-05-07 2020-05-07 Telephone Amira [facility] 1.2.891.053 [id number] Univers 00:00:00 00:00:00 Gabriela [place] 350.1.13.10 [place] [phone] Id dical nal 134 [facility] 2020-03-28 2020-03-28 Telephone Miguel Almaraz [facility] 1.2.840.114 [id number] Univers 00:00:00 00:00:00 [place] 350.1.13.10 [place] [phone] Id dical nal 134 [facility] 2020-03-27 2020-03-27 Outpatient R MIGUEL ALMARAZ [facility] [id number] Univers 14:15:00 14:15:00 ity of [facility] 2020-03-27 2020-03-27 [employer] 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 2, Adc Lab [facility] 1.2.840.114 [id number] Univers 11:39:38 11:54:38 Visit Yvonne Almarazcynthia [place]ater 350.1.13.10 [place] [phone] Id dical [facility] 353 [facility] 2020-03-27 2020-03-27 Laboratory Lab, [employer] [facility] I [facility] 1.. 840.114 [id number] Univers 11:26:41 11:46:41 Only Sonya Gillis 350.1.13.10 [place] 4.2.7.2.686 [place] Profess[place] [phone] Id [facility]. [facility] 044 [facility] 2020-03-27 2020-03-27 Case AlmarazYvonneen [facility] 1.2.276.423 [id number] Univers 00:00:00 00:00:00 Management Cam [place] 350.1.13.10 [place] [phone] [facility] 134 [facility] 2020-03-27 2020-03-27 Telephone Varun [facility] 1.2.782.741 [id number] Univers 00:00:00 00:00:00 Sonya [place]ater 350.1.13.10 [place] [phone] [address] 2019-12-25 2019-12-25 Outpatient R ALMARAZ MIGUEL [facility] [id number] Univers 11:00:00 11:00:00 ity of [facility] 2019-12-25 2019-12-25 [employer] 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 2, [employer] [facility] 1.2.840.114 [id number] Univers 10:40:23 10:55:23 Visit Miguel Almaraz 350.1.13.10 [place] [phone] Id dical nal 353 [facility] 2019-12-24 2019-12-24 Case Miguel Almaraz [facility] 1.2.432.204 [id number] Univers 00:00:00 00:00:00 Management [place] 350.1.13.10 [place] [phone] Id dical nal 134 [facility] 2019-12-17 2019-12-17 Outpatient R KARUNA [facility] [id number] Univers 16:20:00 16:20:00 KEDAR ity [facility] 2019-06-12 2019-06-12 Telephone [facility] 1.2.494.227 [id number] Univers 00:00:00 00:00:00 [facility] 350.1.13.10 it y of [place] 4.2.7.2.686 [place] Profess[place] [phone] Id dical nal [address] [place] [address] One 2019-06-08 2019-06-08 [facility] Missy Templeton [facility] 1.2.840.11 [id number] Univers 10:20:07 23:59:00 Encounter Station, [employer] [facility] [place] 350.1.13 .10 [place] [phone] [facility] [address] [place] 2019-06-08 2019-06-08 [facility] 1.2.840.114 [id number] Univers 10:17:35 10:19:00 Encounter Missy Slater 350.1.13.10 [place] [phone] [facility] [address] [place] 2019-06-08 2019-06-08 Office [facility] 1.2.840.114 [id number] Univers 08:12:18 09:20:05 Visit Missy Neves 350.1.13.10 it y of [place] 4.2.7.2.686 [place] [phone] Id ruby [facility] 044 [facility] 2019-06-08 2019-06-08 Letter Jareth [facility] 1.2.840.114 [id number] Univers 00:00:00 00:00:00 (Out) Missy Neves 350.1.13.10 it y of [place] 4.2.7.2.686 [place] [phone] Id radhaar nal [address] [place] [address] [facility] One 2019-06-08 2019-06-08 Telephone Jareth [facility] 1.2.609.018 [id number] Univers 00:00:00 00:00:00 Missy Neves 350.1.13.10 it y of [place] 4.2.7.2.686 [place] Profess[place] [phone] [facility] 044 [facility] 2019-06-06 2019-06-06 [employer] 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 2, Adc Lab [facility] 1.2.840.114 [id number] Univers 08:12:25 08:27:25 Visit Missy [place] 350.1.13.10 [place] [phone] Id ruby [facility] 353 [facility] 2019-06-06 2019-06-06 Orders Doctor GOLDEN 1.2.840.114 [id number] Univers 00:00:00 00:00:00 Only Unassigned, ROBERTA 350.1.13.10 it[place] of [place] [facility] 4.2.7.2.686 [place]ao as [phone] [address] 2019-06-05 2019-06-05 Office Jareth [facility] 1.2.840.114 [id number] Univers 15:36:55 17:02:45 Visit Missy Neves 350.1.13.10 it y of [place] 4.2.7.2.686 [place] Profess[place] [phone] Id [facility] 044 [facility] 2019-06-05 2019-06-05 Orders Doctor GOLDEN 1.2.840.114 [id number] Univers 00:00:00 00:00:00 Only Unassigned, ROBERTA 350.1.13.10 ity of [place] [facility] 4.2.7.2.686 [place] [phone] [address] Results Test Description Test Time Test Comments Results Result Comments Source POCT Test 2023-01-14 15:46:00 Test Item Value Reference Range Interpretation Comme nts POCT PREG (test code = 1605) Negative On board controls acceptable with C Line (test code = 3574) Yes POCT PREG LOT # (test code = 3575) POCT PREG TEST DATE (test code = 3576) [facility] [id number] 15:46:00 Test Item Value Reference Range Interpretation Comments POCT PREG (test code = 1605) Negative On board controls acceptable with C Yes Line (test code = 3574) POCT PREG LOT # (test code = 3575) POCT PREG TEST DATE (test code = 3576) [facility] [id number] 18:13:01 Test Item Value Reference Range Interpretation Comments Case number (test code = [id number]) Surgical pathology See link below for report (test code = PDF Lab Report [id number]) Result status (test code This is Final Report = [id number]) for [id number] [facility] SARS-COV-2 ANTIGEN (BINAX NOW)2022-09-18 18:05:00 Test Item Value Reference Range Interpretation Comments POCT SARS-COV-2 ANTIGEN (test code = Positive Not Detected A 30837-9) On board controls acceptable with C Yes Line (test code = 3574) Lab Interpretation (test code = Abnormal 71939-9) [facility] MOLECULAR [id number] 14:01:33 Test Item Value Reference Range Interpretation Comments POCT Molecular FluA (test code = Negative Negative 55572-4) POCT Molecular FluB (test code = Negative Negative 93610-4) Lab Interpretation (test code = Normal 03017-6) [facility] MOLECULAR [id number] 14:01:33 Test Item Value Reference Range Interpretation Comments POCT Molecular FluA (test code = Negative Negative 19437-5) POCT Molecular FluB (test code = Negative Negative 32438-2) Lab Interpretation (test code = Normal 17797-8) [facility] MOLECULAR [id number] 14:01:33 Test Item Value Reference Range Interpretation Comments POCT Molecular FluA (test code = Negative Negative 18578-9) POCT Molecular FluB (test code = Negative Negative 62896-8) Lab Interpretation (test code = Normal 84620-7) [facility] MOLECULAR [id number] 13:56:10 Test Item Value Reference Range Interpretation Comments POCT Molecular Strep (test code = Negative Negative 12607-8) Lab Interpretation (test code = Normal 98121-6) [facility] MOLECULAR [id number] 13:56:10 Test Item Value Reference Range Interpretation Comments POCT Molecular Strep (test code = Negative Negative 26844-7) Lab Interpretation (test code = Normal 95923-6) [facility] MOLECULAR [id number] 13:56:10 Test Item Value Reference Range Interpretation Comments POCT Molecular Strep (test code = Negative Negative 41576-7) Lab Interpretation (test code = Normal 58063-5) [facility] LIKE GROWTH FACTOR [id number] 19:35:19 Test Item Value Reference Range Interpretation Comments IGF 1 (Insulin-Like 153 ng/mL 55-235 Growth Factor 1) (test code = 2484-4) IGF 1 Z SCORE INTERPRETIVE CALCULATION (test code INFOR MATION: IGF 1 = 44938-6) Z-SCORE CALCULA TION A Z score is the number of standard dev iations a given result is above (positive score) or below (negat di score) the age- and sex-adjusted population mean . ?Results that a re within the IGF- 1 reference inter edita will have a Z s core between -2.0 an d +2.0.Performed By: [facility] [place] [address] [id number] Director: Pola Nazario MD, PhD [facility]ound[facility]YROID STIMULATING [id number] 23:24:01 Test Item Value Reference Range Interpretation Comments TSH (test code = See_Comment [Automated message] 8764203046) The system Wurl generated this result transmitted ref erence range: 0.45 - 4 .70 mIU/L. The refe rence range was not u sed to interpret this result as normal/abnor mal. Lab Interpretation (test Normal code = 99423-2) [facility]oundGLYCOSYLATED HEMOGLOBIN (A1C)2022-07-29 22:48:14 Test Item Value Reference Range Interpretation Comments HGB A1C (test code = 5.7 % 4.0-5.7 4548-4) TERRY (test code = TERRY) Reference RangesNormal: <5.7%Prediabetes: 5.7 - 6.4%Diabetes: > 6.5% Lab Interpretation (test Normal code = 46611-6) [facility]ORTISOL [id number] 22:29:15 Test Item Value Reference Range Interpretation Comments DESMOND AM (test code = 1.1 ug/dL 4.5-23.0 L 3217151518) TERRY (test code = TERRY) Biotin has been reported to cause a positive bias, interpret results relative to patient's use of biotin. Lab Interpretation (test Abnormal code = 15178-3) [facility]. METABOLIC PANEL (39042)2022-07-29 21:31:19 Test Item Value Reference Range Interpretation Comments NA (test code = 141 mmol/L 135-145 4306483675) K (test code = 5.2 mmol/L 3.5-5.0 H 7357216082) CL (test code = 106 mmol/L 98-108 9021652830) CO2 TOTAL (test code = 27 mmol/L 23-31 1315463236) AGAP (test code = 2-16 4715339167) BUN (test code = 12 mg/dL 7-23 0482743734) GLUCOSE (test code = 121 mg/dL 70-110 H 0009527600) CREATININE (test code = 0.57 mg/dL 0.50-1.04 1055701745) TOTAL BILI (test code = 0.5 mg/dL 0.1-1.1 3525560851) CALCIUM (test code = 9.2 mg/dL 8.6-10.6 6454753114) T PROTEIN (test code = 7.8 g/dL 6.3-8.2 3426377068) ALBUMIN (test code = 4.7 g/dL 3.5-5.0 4440299892) ALK PHOS (test code = 84 U/L 34-122 5450658126) ALTv (test code = 28 U/L 5-35 2-6) AST(SGOT) (test code = 23 U/L 13-40 2612928422) eGFR (test code = mL/min/1.73m2 2069452709) TERRY (test code = TERRY) Association of [...] tests). Lab Interpretation Abnormal (test code = 99820-2) [facility] (52186)(TOTAL CHOLESTEROL, TRIGLYCERIDES, HDL)2022-07-29 21:31:19 Test Item Value Reference Range Interpretation Comments CHOL (test code = 209 mg/dL 120-200 H 2418913574) HDL (test code = 66 mg/dL See_Comment [Automated message] 3113559142) The system Wurl generated this result transmit radha reference range : >=50. The refer ence range was not u sed to interpret th is result as normal/abnormal . HDLC RATIO (test code = See_Comment [Au tomated message] 5825206256) The system Wurl generated this result transmit radha reference range : <=4.5. The refe rence range was not u sed to interpret th is result as normal/abnormal . TRIG (test code = 74 mg/dL 30-170 0790260897) LDL CHOL (test code = 128 mg/dL See_Comment [Auto mated message] 65861-5) The system Wurl generated this result transmit radha reference range : <=160. The refe rence range was not u sed to interpret th is result as normal/abnormal . VLDL (test code = 15 mg/dL 5-60 2349563532) Lab Interpretation (test Abnormal code = 34066-4) [facility] WITH [id number] 20:40:09 Test Item Value Reference Range Interpretation [...] RDW-SD (test code = 44.6 fL 39.0-49.9 44395-4) RDW-CV (test code = 13.0 % 12.0-15.5 788-0) PLT (test code = See_Comment [Automated 777-3) message] The sy stem which generated this result transmitted reference range : 166 - 358 10*3/ ?L. The reference r kody was not used to interpret this result as normal/abnormal . MPV (test code = 12.2 fL 9.5-12.9 85938-9) NRBC/100 WBC (test See_Comment [Automat ed code = 8530205780) message] The system which generated this result transmitted reference range : 0.0 - 10.0 /100 WBCs. The refer ence range was not u sed to interpret th is result as normal/abnormal . NRBC x10^3 (test code See_Comment [Auto mated = 9135743008) message] The s ystem which generated this result transmitted reference range : 10*3/?L. The reference range was not used to interpret this result as normal/abnormal . GRAN MAT (NEUT) % 78.8 % (test code = 770-8) IMM GRAN % (test code 0.20 % = 4712207958) LYMPH % (test code = 18.2 % 736-9) MONO % (test code = 2.1 % 5905-5) EOS % (test code = 0.1 % 713-8) BASO % (test code = 0.6 % 706-2) GRAN MAT x10^3(ANC) 6.39 10*3/uL 1.88-7.09 (test code = 1075057920) IMM GRAN x10^3 (test 0.00-0.06 code = 9786519952) LYMPH x10^3 (test code 1.48 10*3/uL 1.32-3.29 = 731-0) MONO x10^3 (test code 0.17 10*3/uL 0.33-0.92 L = 742-7) EOS x10^3 (test code = 0.03-0.39 L 711-2) BASO x10^3 (test code 0.05 10*3/uL 0.01-0.07 = 704-7) Lab Interpretation Abnormal (test code = 19205-8) [facility] URINALYSIS W/O SPECIFIC [id number] 18:28:00 Test Item Value Reference Range Interpretation [...] code = 3257) Negative Negative - Negative [facility] W/O SPECIFIC [id number] 18:28:00 Test Item Value Reference Range Interpretation [...] code = 3257) Negative Negative - Negative [facility] WITH [id number] 19:39:13 Test Item Value Reference Range Interpretation Comments WBC (test code = See_Comment [Automated message] 6690-2) The system Wurl generated this result transmitted ref erence range: 4.30 - 1 1.10 10*3/?L. The re ference range was not u sed to interpret this result as normal/abnor mal. RBC (test code = See_Comment [Automated message] 789-8) The system Wurl generated this result transmitted ref erence range: [...] RDW-SD (test code 43.9 fL 39-49.9 = 58191-5) RDW-CV (test code 12.7 % 12-15.5 = 788-0) PLT (test code = See_Comment [Automated message] 777-3) The system whic h generated this result transmitted ref erence range: 166 - 35 8 10*3/?L. The re ference range was not u sed to interpret this result as normal/abnor mal. MPV (test code = 11.5 fL 9.5-12.9 99954-5) NRBC/100 WBC (test See_Comment [Automat ed message] code = 2589770670) The syste m which generated this result transmitted ref erence range: 0.0 - 10 .0 /100 WBCs. The refer ence range was not u sed to interpret this result as normal/abnor mal. NRBC x10^3 (test See_Comment [Automated message] code = 1853514829) The syste m which generated this result transmitted ref erence range: 10*3/?L. The reference range was not used to interpr et this result as normal/abnormal . GRAN MAT (NEUT) % 51.4 % (test code = 770-8) IMM GRAN % (test 0.10 % code = 2805334757) LYMPH % (test code 39.5 % = 736-9) MONO % (test code 6.3 % = 5905-5) EOS % (test code = 1.7 % 713-8) BASO % (test code 1.0 % = 706-2) GRAN MAT 3.57 10*3/uL 1.88-7.09 x10^3(ANC) (test code = 2143412439) IMM GRAN x10^3 0-0.06 (test code = 4028253983) LYMPH x10^3 (test 2.75 10*3/uL 1.32-3.29 code = 731-0) MONO x10^3 (test 0.44 10*3/uL 0.33-0.92 code = 742-7) EOS x10^3 (test 0.12 10*3/uL 0.03-0.39 code = 711-2) BASO x10^3 (test 0.07 10*3/uL 0.01-0.07 code = 704-7) [facility]. METABOLIC PANEL (48913)2022-05-20 18:44:05 Test Item Value Reference Range Interpretation Comments NA (test code = 141 mmol/L 135-145 3377181305) K (test code = 5.0 mmol/L 3.5-5 4604383243) CL (test code = 105 mmol/L 98-108 1897603790) CO2 TOTAL (test code 30 mmol/L 23-31 = 1873710379) AGAP (test code = 2-16 5048274612) BUN (test code = 13 mg/dL 7-23 0890278618) GLUCOSE (test code = 103 mg/dL 70-110 5027436536) CREATININE (test code 0.63 mg/dL 0.5-1.04 = 5251510026) TOTAL BILI (test code 0.6 mg/dL 0.1-1.1 = 9090064020) CALCIUM (test code = 9.2 mg/dL 8.6-10.6 5419076329) T PROTEIN (test code 7.5 g/dL 6.3-8.2 = 2525383874) ALBUMIN (test code = 4.8 g/dL 3.5-5 5680955424) ALK PHOS (test code = 86 U/L 34-122 0354734366) ALTv (test code = 23 U/L 5-35 1742-6) AST(SGOT) (test code 21 U/L 13-40 = 6788287711) eGFR (test code = mL/min/1.73m2 0907605034) TERRY (test code = TERRY) Association of [...] or urine or abnormalities in imaging tests). [facility]
[2023-04-28 09:24] LABS: Specific Gravity 1.011 (1.005-1.030); Urine Bilirubin NEGATIVE (Negative); Urine Blood Negative (Negative); Urine Clarity Clear (Clear); Urine Color Light-Yellow (Yellow); Urine Glucose NEGATIVE (Negative); Urine Protein NEGATIVE (Negative); Urine Urobilinogen Normal (Normal)
--- NOTE | 2023-04-28 09:43 | ER ---
Nurse's Notes [facility] Name: Tessa Vogel Age: 52 yrs Sex: Female : 1970 Arrival Date: 04/28/2023 Time: 08:10 Bed 13 Private MD: Diagnosis: SARS-associated coronavirus as the cause of diseases classified elsewhere Presentation: 04/28 08:20 Chief complaint: Patient states: Fever, body aches, cough, congestion, sore throat for ha1 3 days. 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 Coronavirus screen: Vaccine status: Patient reports receiving the 2nd dose of the covid vaccine. Client denies travel out of the [place] in the last 14 days. congestion, cough unrelated to allergies, fatigue, fever, headache, muscle pain, sore throat, Client presents with at least one sign or symptom that may indicate coronavirus-19. Standard/surgical mask placed on the client. Ebola Screen: Patient denies travel to an Ebola-affected area in the 21 days before illness onset. Initial Sepsis Screen: Does the patient meet any 2 criteria? No. Patient's initial sepsis screen is negative. Does the patient have a suspected source of infection? Yes: Productive cough/pneumonia. Risk Assessment: Do you want to hurt yourself or someone else? Patient reports no desire to harm self or others. Onset of symptoms was April 26, 2023. 08:20 Method Of Arrival: Ambulatory ha1 08:20 Acuity: NATALIO 3 ha1 Triage Assessment: 08:21 General: Appears ill, Behavior is calm, cooperative, appropriate for age. Pain: ll1 Complains of pain in head/body Quality of pain is described as aching. EENT: Reports decreased hearing in left ear and right ear nasal congestion pain in right eye and left eye. Neuro: Reports weakness. Respiratory: Reports cough that is. GI: Reports diarrhea. Musculoskeletal: Reports pain in body aches. Historical: - Allergies: 08:20 Codeine; ha1 08:20 Dilantin; ha1 08:20 Hydroxyzine; ha1 08:20 Iodine; ha1 08:20 PENICILLINS; ha1 - PMHx: 08:20 uterine fibroids; ha1 - PSHx: 08:20 None; ha1 - Immunization history:: Client reports receiving the 2nd dose of the Covid vaccine. - Social history:: Smoking status: Patient denies any tobacco usage or history of. Screenin:00 [facility] ED Fall Risk Assessment (Adult) Score/Fall Risk Level 0 - 2 = Low Risk ll1 Oriented to surroundings, Maintained a safe environment, Educated pt \T\ family on fall prevention, incl call for assistance when getting out of bed, Hourly rounding (assess needs \T\ fall precautionary measures) done. Abuse screen: Denies threats or abuse. Nutritional screening: No deficits noted. Tuberculosis screening: No symptoms or risk factors identified. Assessment: 08:58 Reassessment: No changes from previously documented assessment. Patient and/or family ll1 updated on plan of care and expected duration. Pain level reassessed. Patient is alert, oriented x 3, equal unlabored respirations, skin warm/dry/pink. 09:18 Reassessment: No changes from previously documented assessment. Patient and/or family ll1 updated on plan of care and expected duration. Pain level reassessed. Patient is alert, oriented x 3, equal unlabored respirations, skin warm/dry/pink. 09:25 Reassessment: X ray at . ll1 09:47 Reassessment: No changes from previously documented assessment. Patient and/or family ll1 updated on plan of care and expected duration. Pain level reassessed. Patient is alert, oriented x 3, equal unlabored respirations, skin warm/dry/pink. Vital Signs: 08:20 BP 122 / 78; Pulse 79; Resp 16; Temp 98.8; Pulse Ox 98% on R/A; Weight 63.96 kg; Height ha1 5 ft. 0 in. ; 09:21 BP 105 / 67; Pulse 83; Resp 16; Pulse Ox 100% on R/A; ll1 09:46 BP 120 / 67; Pulse 70; Resp 16; Pulse Ox 100% on R/A; ll1 08:20 Body Mass Index 27.54 (63.96 kg, 152.4 cm) ha1 ED Course: 08:13 Patient arrived in ED. rg4 08:14 [facility]C [facility] kb 08:14 Matthew Casas MD is Attending Physician. kb 08:20 Arm band placed on Patient placed in an exam room, on a stretcher. ha1 08:22 Triage completed. ha1 08:59 Bronson Kramer, RN is Primary Nurse. ll1 09:00 Patient has correct armband on for positive identification. Bed in low position. Call ll1 light in reach. Side rails up X 1. Cardiac monitoring not applicable on this patient. Lights dimmed. Warm blanket given. 09:00 No provider procedures requiring assistance completed. Patient did not have IV access ll1 during this emergency room visit. 09:18 Urinalysis w/ reflexes Sent. ll1 09:42 Chest Single View XRAY In Process Unspecified. EDMS Administered Medications: No medications were administered Medication: 09:00 VIS not applicable for this client. ll1 Outcome: :42 Discharge ordered by . kb 09:59 Discharged to home ambulatory. ss 09:59 Condition: good 09:59 Discharge instructions given to patient, Instructed on discharge instructions, follow up and referral plans. medication usage, Demonstrated understanding of instructions, follow-up care, medications, Prescriptions given X 3. 09:59 Patient left the ED. ss Signatures: Dispatcher [employer] EDMS Kristal Manrique, EVANS-C ATOMIC SPECTROSCOPIST-Milena Landry RN RN Ofelia Ryan rg4 Bronson Kramer, RN RN ll1 Josephine Byrnes RN RN ha1 Corrections: (The following items were deleted from the chart) 09:56 09:46 BP 120 / 67; Pulse 80bpm; Resp 16bpm; Pulse Ox 100% RA; ll1 ll1
--- NOTE | 2023-04-28 09:43 | EDPHYS ---
Physician Documentation [facility] Name: Tessa Vogel Age: 52 yrs Sex: Female : 1970 Arrival Date: 04/28/2023 Time: 08:10 Bed 13 Private MD: ED Physician Matthew Casas HPI: 04/28 08:42 This 52 yrs old Female presents to ER via Ambulatory with complaints of Flu kb Symptoms. 08:42 The patient or guardian reports cough, that is intermittent, described as mild, flu kb symptoms, low-grade fever, myalgias. Onset: The symptoms/episode began/occurred 3 day(s) ago. Severity of symptoms: At their worst the symptoms were mild, in the emergency department the symptoms are unchanged. Modifying factors: The symptoms are alleviated by nothing, the symptoms are aggravated by nothing. Associated signs and symptoms: Pertinent positives: fever, rhinorrhea, sore throat. The patient has not experienced similar symptoms in the past. The patient has not recently seen a physician. Patient presents for cough, congestion, fever, body aches, sore throat that started 3 days ago. Reports her employer told her she needed to get tested for COVID. Patient also requested a chest x-ray due to history of walking pneumonia. Historical: - Allergies: 08:20 Codeine; ha1 08:20 Dilantin; ha1 08:20 Hydroxyzine; ha1 08:20 Iodine; ha1 08:20 PENICILLINS; ha1 - PMHx: 08:20 uterine fibroids; ha1 - PSHx: 08:20 None; ha1 - Immunization history:: Client reports receiving the 2nd dose of the Covid vaccine. - Social history:: Smoking status: Patient denies any tobacco usage or history of. ROS: 08:42 Abdomen/GI: Negative for abdominal pain, nausea, vomiting, diarrhea, and constipation. kb 08:42 Constitutional: Positive for body aches, chills, fatigue, fever, malaise. 08:42 ENT: Positive for rhinorrhea, sore throat. 08:42 Respiratory: Positive for cough. 08:42 All other systems are negative. Exam: 08:42 Constitutional: This is a well developed, well nourished patient who is awake, alert, kb and in no acute distress. Head/Face: Normocephalic, atraumatic. ENT: Moist Mucous membranes Cardiovascular: Regular rate and rhythm with a normal S1 and S2. No gallops, murmurs, or rubs. No pulse deficits. Respiratory: Respirations even and unlabored. No increased work of breathing. Talking in full sentences Abdomen/GI: Soft, non-tender. No distention Skin: Warm, dry with normal turgor. Normal color. MS/ Extremity: Pulses equal, no cyanosis. Neurovascular intact. Full, normal range of motion. Neuro: Awake and alert, GCS 15, oriented to person, place, time, and situation. Moves all extremities. Normal gait. Vital Signs: 08:20 BP 122 / 78; Pulse 79; Resp 16; Temp 98.8; Pulse Ox 98% on R/A; Weight 63.96 kg; Height ha1 5 ft. 0 in. ; 09:21 BP 105 / 67; Pulse 83; Resp 16; Pulse Ox 100% on R/A; ll1 09:46 BP 120 / 67; Pulse 70; Resp 16; Pulse Ox 100% on R/A; ll1 08:20 Body Mass Index 27.54 (63.96 kg, 152.4 cm) ha1 MDM: 08:14 Patient medically screened. kb 08:42 Differential Diagnosis: Other COVID, flu, strep, URI, pharyngitis, bronchitis, kb pneumonia. Data reviewed: vital signs, nurses notes. 09:41 Independent interpretation of the following test(s) in the Emergency Department X-Ray: kb My interpretation is chest x-ray without acute findings. Counseling: I had a detailed discussion with the patient and/or guardian regarding: the historical points, exam findings, and any diagnostic results supporting the discharge/admit diagnosis, lab results, radiology results, the need for outpatient follow up, a family practitioner, to return to the emergency department if symptoms worsen or persist or if there are any questions or concerns that arise at home. 04/28 08:19 Order name: Flu; Complete Time: 09:09 kb 04/28 08:19 Order name: SARS-COV-2 RT PCR; Complete Time: 09:37 kb 04/28 08:19 Order name: Strep kb 04/28 09:05 Order name: Throat Culture EDMS 04/28 09:13 Order name: Urinalysis w/ reflexes; Complete Time: 09:30 kb 04/28 08:26 Order name: Chest Single View XRAY; Complete Time: 09:54 kb Administered Medications: No medications were administered Disposition: 16:49 I reviewed the patient's care provided by Advanced Practice Provider \T\ agree w/ the cp3 diagnosis \T\ care plan. I personally saw the pt \T\ performed a substantive portion of the visit, incldng all aspects of the (History/Exam/Medical Decision Making). Disposition Summary: 04/28/23 09:42 Discharge Ordered Location: Home kb Condition: Stable kb Diagnosis - SARS-associated coronavirus as the cause of diseases classified elsewhere kb Followup: kb - With: Emergency Department - When: As needed - Reason: Worsening of condition Followup: kb - With: Private Physician - When: 2 - 3 days - Reason: Recheck today's complaints, Continuance of care, Re-evaluation by your physician Discharge Instructions: - Discharge Summary Sheet kb - COVID-19 kb - Viral Illness, Adult kb Forms: - Work release form kb - Medication Reconciliation Form kb - Thank You Letter kb - Antibiotic Education kb - Prescription Opioid Use kb - Patient Portal Instructions kb Prescriptions: - Paxlovid 300 mg (150 mg x 2)-100 mg Oral Tablet, Dose Pack - take 1 dose pack by ORAL route per package directions; 1 Pack; Refills: 0, kb Product Selection Permitted - albuterol sulfate 90 mcg/actuation Inhalation HFA Aerosol Inhaler - inhale 2 inhalation by INHALATION route every 4-6 hours As needed; 1 unit; kb Refills: 0, Product Selection Permitted - Tessalon Perles 100 mg Oral Capsule - take 1 capsule by ORAL route every 8 hours As needed; 15 capsule; Refills: 0, kb Product Selection Permitted Signatures: Dispatcher [employer] Kristal Mata FNP-C FNP-Ckb Pinckney, Cwanza, MD MD cp3 Josephine Byrnes RN RN ha1
--- NOTE | 2023-04-28 09:50 | RAD REPORT ---
EXAM DESCRIPTION: Janie Single View04/28/2023 9:40 am CLINICAL HISTORY: Cough COMPARISON: 2021 FINDINGS: The lungs appear clear of acute infiltrate. The heart is normal size IMPRESSION: No acute abnormalities displayed
[2023-04-28 10:05] VITALS: TEMP 98.8
[2023-04-28 10:06] VITALS: O2SAT 100
[2023-04-28 10:07] VITALS: BP 120/67
== END 2023-04-28 09:59 | disposition home or self-care (01) ==
LOC: ER 08:10
DX: U07.1 COVID-19 (principal); Z88.0 Allergy status to penicillin; Z88.5 Allergy status to narcotic agent; Z88.8 Allergy status to other drugs, medicaments and biological substances; Z91.048 Other nonmedicinal substance allergy status
CPT/HCPCS: 71045; 81003; 87070; 87081; 87635; 87804; 99283

== ENCOUNTER 2024-03-17 10:18 | Emergency (ER) | payer BC ==
[2024-03-17 11:01] LABS: Absolute Basophils 0.1 K/uL (0-0.5); Absolute Eosinophils 0.1 K/uL (0-0.5); Absolute Lymphocytes (CBC) 2.1 K/uL (0.7-4.9); Absolute Monocytes 0.3 K/uL (0.1-1.3); Absolute Neutrophil 2.2 K/uL (1.8-8.0); Basophils % 1.4 % (0-1.3); Eosinophils % 2.2 % (0-4.4); Hematocrit 37.8 % (36.0-45.0); Lymphocytes % 44.4 % (15.3-44.8); MCH 31.2 pg (27.0-35.0); MCHC 34.2 g/dL (32.0-36.0); MCV 91.2 fL (80-100); Monocytes % 6.4 % (3.3-12.3); Neutrophils % 45.6 % (41.7-73.7); Platelets 241 thou/uL (152-406); RBC Red Blood Cell Count 4.15 M/uL (3.86-4.86); Red Cell Distribution Width 13.3 % (12.1-15.2)
[2024-03-17 11:07] LABS: PT Prothrombin Time 10.9 SECONDS (9.4-12.5); PTT, Activated Partial Thromb 27.8 SECONDS (24.3-36.9); Protime INR 0.99
[2024-03-17 11:15] LABS: Specific Gravity 1.022 (1.005-1.030); Sqamous Epithelial <5 /HPF (None Seen); Urine Bacteria None Seen /HPF (<20); Urine Bilirubin NEGATIVE (Negative); Urine Blood Negative (Negative); Urine Clarity Extremely Turbid (Clear); Urine Color Light-Yellow (Yellow); Urine Culture Reflex Order NOT NEEDED; Urine Glucose NEGATIVE (Negative); Urine Ketones NEGATIVE (Negative); Urine Microscopic Reflex YN ORDER UMIC; Urine Mucus 1+ /HPF (None Seen); Urine Nitrite NEGATIVE (Negative); Urine Protein NEGATIVE (Negative); Urine RBC <5 /HPF (None Seen); Urine Urobilinogen Normal (Normal); Urine WBC <5 /HPF (<5)
[2024-03-17 11:24] LABS: Barbiturates NEGATIVE (NEGATIVE); Benzodiazepines NEGATIVE (NEGATIVE); Cocaine NEGATIVE (NEGATIVE); METHAMPHETAM NEGATIVE (NEGATIVE); Methadone NEGATIVE (NEGATIVE); Opiates NEGATIVE (NEGATIVE); Phencyclidine NEGATIVE (NEGATIVE); THC Cannibis NEGATIVE (NEGATIVE)
[2024-03-17 11:25] LABS: ALT/SGPT 40 U/L (13-56); AST/SGOT 21 U/L (15-37); Albumin 3.9 g/dL (3.4-5.0); Albumin/Globulin Ratio 1.1 (1.1-1.8); Alkaline Phosphatase 92 U/L (45-117); Anion Gap 7.8 mEq/L (5.0-15.0); BUN Blood Urea Nitrogen 10 mg/dL (7-18); Bicarbonate 26 mEq/L (21-32); Bilirubin Direct 0.2 mg/dL (0-0.2); Bilirubin Indirect, Calculated 0.4 mg/dL (0.2-0.8); Bilirubin Total 0.6 mg/dL (0.2-1.0); Globulin 3.6 g/dL (2.3-3.5); Glomerular Filtration Rate 109 ml/min (=/>90); Glucose Level 104 mg/dL (74-106); Magnesium 2.5 mg/dL (1.6-2.4); Potassium 3.8 mEq/L (3.5-5.1); Protein, Total 7.5 g/dL (6.4-8.2); Sodium Level 140 mEq/L (136-145); Troponin High Sensitivity < 3.0 pg/mL (<58.9)
--- NOTE | 2024-03-17 11:47 | RAD REPORT ---
EXAM DESCRIPTION: RADChest Single View03/17/2024 11:06 am CLINICAL HISTORY: CHEST PAIN COMPARISON: Chest Single View dated 04/28/2023; Chest Single View dated 09/16/2022; Chest Single View dated 05/14/2022; Chest Single View dated 08/04/2019 TECHNIQUE: Portable AP view of the chest. FINDINGS: The lungs are clear. No pneumothorax or effusion. The cardiomediastinal contours are unre markable. IMPRESSION: No acute cardiopulmonary process.
--- NOTE | 2024-03-17 12:37 | RAD REPORT ---
EXAM DESCRIPTION: CT - Head Brain Wo Cont - 03/17/2024 11:32 am CLINICAL HISTORY: DIZZINESS COMPARISON: Head Brain Wo Cont dated 05/14/2022; Head Brain Wo Cont dated 08/04/2019 TECHNIQUE: Noncontrast head CT images were obtained without IV contrast. Multiplanar reformats were generated and reviewed. All CT scans are performed using dose optimization technique as appropriate and may include automated exposure control or mA/KV adjustment according to patient size. FINDINGS: No intracranial hemorrhage, mass, or edema. Midline structures are unremarkable. Normal ventricular caliber for age. Augustine-white matter differentiation is preserved, without evidence of acute infarct. No abnormal extra- axial fluid collections. Mastoid air cells and visualized portions of the paranasal sinuses are clear. No acute bony findings. IMPRESSION: No evidence of an acute intracranial process.
--- NOTE | 2024-03-17 13:07 | EDPHYS ---
Physician Documentation [facility] Name: Tessa Vogel Age: 53 yrs Sex: Female : 1970 Arrival Date: 03/17/2024 Time: 10:18 Bed 14 Private MD: ED Physician Cortes Rodrigez HPI: 03/17 10:49 This 53 yrs old Female presents to ER via Ambulatory with complaints of sb4 Dizziness. 10:49 The patient presents with sense of spinning. Onset: The symptoms/episode began/occurred sb4 2 day(s) ago. Modifying factors: The symptoms are alleviated by nothing, the symptoms are aggravated by movement of head, standing up, changing position. Associated signs and symptoms: The patient has no apparent associated signs or symptoms. Patient's baseline: Neuro: alert and fully oriented, Motor: no deficits, Ambulation: walks without assistance, Speech: normal. 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 - Infectious Disease History:: Denies. - Social history:: Smoking status: Patient denies any tobacco usage or history of. ROS: 10:50 Constitutional: Negative for fever, chills, and weight loss, sb4 10:50 Neuro: Positive for dizziness, 10:50 All other systems are negative, Exam: 10:50 Head/Face: Normocephalic, atraumatic. Eyes: Extra-ocular motions intact. Periorbital sb4 areas with no swelling, redness, or edema. ENT: Mucous membranes moist. Cardiovascular: Regular rate and rhythm with a normal S1 and S2. Respiratory: Lungs have equal breath sounds bilaterally, clear to auscultation and percussion. No rales, rhonchi or wheezes noted. No increased work of breathing, no retractions or nasal flaring. Abdomen/GI: Soft, non-tender, no distension. Skin: Warm, dry with normal turgor. Normal color with no rashes, no lesions, and no evidence of cellulitis. MS/ Extremity: Pulses equal, no cyanosis. Neurovascular intact. Full, normal range of motion. Neuro: Awake and alert, GCS 15, oriented to person, place, time, and situation. Motor strength 5/5 in all extremities. Sensory grossly intact. 10:50 Constitutional: The patient appears in no acute distress, alert, awake, 10:50 Eyes: Pupils: equal, round, and reactive to light and accomodation, Extraocular movements: intact throughout, 10:50 ENT: Ear canal(s): are normal, TM's: are normal, 10:51 Neuro: Gait: is steady, appropriate for age, sb4 Vital Signs: 10:30 BP 190 / 106; Pulse 63; Resp 16; Temp 98.3; Pulse Ox 98% ; Weight 71.67 kg; Height 5 db ft. 0 in. ; 11:09 BP 150 / 86; Pulse 54; Resp 14 S; Pulse Ox 95% on R/A; kc6 12:08 BP 121 / 72; Pulse 61; Resp 15; Pulse Ox 100% on R/A; kc6 12:57 BP 131 / 72; Pulse 57; Resp 16 S; Pulse Ox 97% on R/A; kc6 10:30 Body Mass Index 30.86 (71.67 kg, 152.4 cm) db MDM: 10:32 Patient medically screened. sb4 13:05 Data reviewed: vital signs, nurses notes, lab test result(s), radiologic studies, and sb4 as a result, I will discharge patient. Counseling: I had a detailed discussion with the patient and/or guardian regarding the historical points, exam findings, and any diagnostic results supporting the discharge/admit diagnosis, lab results, radiology results, the need for outpatient follow up, a neurologist, to return to the emergency department if symptoms worsen or persist or if there are any questions or concerns that arise at home. 03/17 10:49 Order name: Basic Metabolic Panel; Complete Time: 11: sb4 03/17 10:49 Order name: CBC with Diff; Complete Time: 11: sb4 03/17 10:49 Order name: Hepatic Function; Complete Time: 11: sb4 03/17 10:49 Order name: Magnesium; Complete Time: 11: sb4 03/17 10:49 Order name: Protime (+inr); Complete Time: 11: sb4 03/17 10:49 Order name: Ptt, Activated; Complete Time: 11:09 sb4 03/17 10:49 Order name: Troponin High Sensitivity; Complete Time: 11:28 sb4 03/17 10:49 Order name: UDS; Complete Time: 11:28 sb4 03/17 10:49 Order name: Urinalysis w/ reflexes; Complete Time: 11:16 sb4 03/17 10:49 Order name: CT Head Brain wo Cont; Complete Time: 12:38 sb4 03/17 10:49 Order name: Chest Single View XRAY; Complete Time: 11:49 sb4 03/17 10:49 Order name: Cardiac monitoring; Complete Time: 10:54 sb4 03/17 10:49 Order name: EKG - Nurse/Tech; Complete Time: 10:54 sb4 03/17 10:49 Order name: IV Saline Lock; Complete Time: 10:54 sb4 03/17 10:49 Order name: Labs collected and sent; Complete Time: 10:54 sb4 03/17 10:49 Order name: NPO; Complete Time: 10:52 sb4 03/17 10:49 Order name: O2 Per Protocol; Complete Time: 10:52 sb4 03/17 10:49 Order name: O2 Sat Monitoring; Complete Time: 10:52 sb4 03/17 10:49 Order name: Orthostatics; Complete Time: 10:54 sb4 EC:55 Rate is 64 beats/min. Rhythm is regular, Normal Sinus Rhythm. MD interval is normal at sb4 192 msec. QRS interval is normal at 76 msec. QT interval is normal at 426 msec. No Q waves. T waves are Normal. No ST changes noted. Clinical impression: Normal ECG and No evidence of ischemia. Interpreted by me. Reviewed by me. Administered Medications: 13:15 Drug: Meclizine PO 25 mg PO once Route: PO; kc6 Disposition: 14:41 Co-signature as Attending Physician, Cortes Rodrigez MD I reviewed the patient's care rt provided by the Advanced Practice Provider and agree with the diagnosis and treatment plan. Disposition Summary: 03/17/24 13:06 Discharge Ordered Notes: Location: Home sb4 Problem: new sb4 Symptoms: have improved sb4 Condition: Stable sb4 Diagnosis - Dizziness and giddiness sb4 Followup: sb4 - With: Axel Lee MD - When: As needed - Reason: Further diagnostic work-up, Recheck today's complaints, Re-evaluation by your physician Discharge Instructions: - Discharge Summary Sheet sb4 - Dizziness, [id number] sb4 Forms: - Patient Portal Instructions sb4 - Leadership Thank You Letter sb4 Prescriptions: - Meclizine 25 mg Oral Tablet - take 1 tablet ORAL route every 8 hours As needed; 30 tablet; Refills: 0, sb4 Product Selection Permitted Signatures: Dispatcher [employer] EDMS Marlen Lutz RN RN kc6 Kerri Oro RN RN db Eusebia Moon PA-C PA-C sb4 Cortes Rodrigez MD MD rt Corrections: (The following items were deleted from the chart) 10:49 10:49 Chest Single View+[email or web address] ordered. EDMS EDMS 10:51 10:50 Head/Face: Normocephalic, atraumatic. Eyes: Extra-ocular motions intact. sb4 Periorbital areas with no swelling, redness, or edema. ENT: Mucous membranes moist. Cardiovascular: Regular rate and rhythm with a normal S1 and S2. Respiratory: Lungs have equal breath sounds bilaterally, clear to auscultation and percussion. No rales, rhonchi or wheezes noted. No increased work of breathing, no retractions or nasal flaring. Abdomen/GI: Soft, non-tender, no distension. Skin: Warm, dry with normal turgor. Normal color with no rashes, no lesions, and no evidence of cellulitis. MS/ Extremity: Pulses equal, no cyanosis. Neurovascular intact. Full, normal range of motion. Neuro: Awake and alert, GCS 15, oriented to person, place, time, and situation. Motor strength 5/5 in all extremities. Sensory grossly intact. sb4
--- NOTE | 2024-03-17 13:07 | ER ---
Nurse's Notes [facility] Name: Tessa Vogel Age: 53 yrs Sex: Female : 1970 Arrival Date: 03/17/2024 Time: 10:18 Bed 14 Private MD: Diagnosis: Dizziness and giddiness Presentation: 03/17 10:30 Chief complaint: Patient states: DIZZINESS X 2 DAYS. RASH FLARE UPS X 5 DAYS. RECENTLY db CAME BACK FROM [place]. Coronavirus screen: Client denies travel out of the [place] in the last 14 days. At this time, the client does not indicate any symptoms associated with coronavirus-19. Ebola Screen: Patient negative for fever greater than or equal to 101.5 degrees Fahrenheit, and additional compatible Ebola Virus Disease symptoms Patient denies exposure to infectious person. Patient denies travel to an Ebola-affected area in the 21 days before illness onset. No symptoms or risks identified at this time. Initial Sepsis Screen: Does the patient meet any 2 criteria? No. Patient's initial sepsis screen is negative. Does the patient have a suspected source of infection? No. Patient's initial sepsis screen is negative. Risk Assessment: Do you want to hurt yourself or someone else? Patient reports no desire to harm self or others. Onset of symptoms was March 13, 2024. 10:30 Method Of Arrival: Ambulatory db 10:30 Acuity: NATALIO 3 db Triage Assessment: 10:33 General: Appears in no apparent distress. uncomfortable, Behavior is calm, cooperative. db Pain:. Pain: Denies pain. Neuro: Level of Consciousness is awake, alert, obeys commands, Oriented to person, place, time, situation. Neuro: Reports dizziness. Respiratory: Airway is patent Respiratory effort is even, unlabored, Respiratory pattern is regular, symmetrical. 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 - Infectious Disease History:: Denies. - Social history:: Smoking status: Patient denies any tobacco usage or history of. Screenin:57 [facility] ED Fall Risk Assessment (Adult) History of falling in the last 3 months, kc6 including since admission No falls in past 3 months (0 pts) Confusion or Disorientation No (0 pts) Intoxicated or Sedated No (0 pts) Impaired Gait No (0 pts) Mobility Assist Device Used No (0 pt) Altered Elimination No (0 pt) Score/Fall Risk Level 0 - 2 = Low Risk. Abuse screen: Denies threats or abuse. Denies injuries from another. Nutritional screening: No deficits noted. Tuberculosis screening: No symptoms or risk factors identified. Assessment: 10:58 General: Appears in no apparent distress. comfortable, well groomed, well developed, kc6 Behavior is calm, cooperative, appropriate for age. Pain: Denies pain. Neuro: Level of Consciousness is awake, alert, obeys commands, Oriented to person, place, time, situation, Appropriate for age Reports dizziness. Cardiovascular: Capillary refill < 3 seconds. Respiratory: Airway is patent Trachea midline Respiratory effort is even, unlabored, Respiratory pattern is regular, symmetrical. GI: No signs and/or symptoms were reported involving the gastrointestinal system. : No signs and/or symptoms were reported regarding the genitourinary system. EENT: No signs and/or symptoms were reported regarding the EENT system. Derm: No signs and/or symptoms reported regarding the dermatologic system. Skin is intact, is healthy with good turgor, Skin is pink, warm \T\ dry. Musculoskeletal: No signs and/or symptoms reported regarding the musculoskeletal system. Circulation, motion, and sensation intact. Capillary refill < 3 seconds, Range of motion: intact in all extremities. 11:58 Reassessment: Patient appears in no apparent distress at this time. No changes from kc6 previously documented assessment. Patient and/or family updated on plan of care and expected duration. Pain level reassessed. Patient is alert, oriented x 3, equal unlabored respirations, skin warm/dry/pink. 12:57 Reassessment: Patient appears in no apparent distress at this time. No changes from kc6 previously documented assessment. Patient and/or family updated on plan of care and expected duration. Pain level reassessed. Patient is alert, oriented x 3, equal unlabored respirations, skin warm/dry/pink. Vital Signs: 10:30 BP 190 / 106; Pulse 63; Resp 16; Temp 98.3; Pulse Ox 98% ; Weight 71.67 kg; Height 5 db ft. 0 in. ; 11:09 BP 150 / 86; Pulse 54; Resp 14 S; Pulse Ox 95% on R/A; kc6 12:08 BP 121 / 72; Pulse 61; Resp 15; Pulse Ox 100% on R/A; kc6 12:57 BP 131 / 72; Pulse 57; Resp 16 S; Pulse Ox 97% on R/A; kc6 10:30 Body Mass Index 30.86 (71.67 kg, 152.4 cm) db ED Course: 10:23 Patient arrived in ED. im 10:24 Eusebia Moon PA-C is PHCP. sb4 10:24 Cortes Rodrigez MD is Attending Physician. sb4 10:33 Triage completed. db 10:33 Arm band placed on Patient placed in an exam room. db 10:51 Marlen Lutz, RN is Primary Nurse. kc6 10:57 Initial lab(s) drawn, by me, sent to lab. EKG done, by ED staff, reviewed by Eusebia bc6 Red MARINO. Inserted saline lock: 20 gauge in left antecubital area, using aseptic technique. Blood collected. 10:58 Patient has correct armband on for positive identification. Bed in low position. Call kc6 light in reach. Side rails up X 1. Adult w/ patient. traffic monitor specialist on. Pulse ox on. NIBP on. Door closed. Noise minimized. Lights dimmed. Pillow given. 11:08 Chest Single View XRAY In Process Unspecified. EDMS 11:33 CT Head Brain wo Cont In Process Unspecified. EDMS 13:06 Axel Lee MD is Referral Physician. sb4 13:19 No provider procedures requiring assistance completed. IV discontinued, intact, kc6 bleeding controlled, No redness/swelling at site. Pressure dressing applied. Administered Medications: 13:15 Drug: Meclizine PO 25 mg PO once Route: PO; kc6 Medication: 13:20 VIS not applicable for this client. kc6 Outcome: 13:06 Discharge ordered by . sb4 13:19 Discharged to home via wheelchair, with significant other, kc6 13:19 Condition: good 13:19 Discharge instructions given to patient, Instructed on discharge instructions, follow up and referral plans. medication usage, Demonstrated understanding of instructions, follow-up care, medications, Prescriptions given X 1, 13:20 Patient left the ED. kc6 Signatures: Dispatcher [employer] Marlen Villareal RN RN kc6 Kerri Oro RN RN Eusebia Blankenship, PAWill PAWill ford4 Joy Espinoza 6 Dayami Milner Corrections: (The following items were deleted from the chart) 10:36 10:30 Chief complaint: Patient states: DIZZINESS X 2 DAYS. RASH FLARE UPS X 5 DAYS. db RECENTLY CAME BACK FROM [facility]
[2024-03-17] MEDS ORDERED: MECLIZINE HCL 12.5 MG TAB ONE (13:11)
[2024-03-17 13:34] VITALS: BP 131/72; TEMP 98.3; O2SAT 97
--- NOTE | 2024-03-18 13:30 | EKG ---
Test Date: 2024-03-17 Test Time: 10:45:20 Vegetable Vendor: SHANITA MEASUREMENT RESULTS: Intervals: Rate: 64 OH: 192 QRSD: 76 QT: 426 QTc: 439 Ira: P: 42 OH: 192 QRS: -10 T: 22 INTERPRETIVE STATEMENTS: Normal sinus rhythm Normal ECG Compared to ECG 05/14/2022 15:15:53 T-wave abnormality no longer present Electronically Signed On 03-18-24 13:27:31 CDT by Pardeep Mason
== END 2024-03-17 13:20 | disposition home or self-care (01) ==
LOC: ER 10:18
DX: R42 Dizziness and giddiness (principal); Z88.0 Allergy status to penicillin; Z88.5 Allergy status to narcotic agent; Z88.8 Allergy status to other drugs, medicaments and biological substances
CPT/HCPCS: 85025; 81001; 80048; 36415; 83735; 85610; 80076; 85730; 84484; 80307; 70450; 71045; J8597; 93005; 99285